=== PATIENT | male | born 1965 | race Caucasian/White ===

== ENCOUNTER 2017-06-29 10:20 | Inpatient (IN) | payer OTHER ==
[~2017-06-29] VITALS: Ht 182.9 cm; Wt 84.2 kg
[~2017-06-29 10:20] MED LIST: DULE200A PO; OXYC1SOL5 PO; PROT40TA PO
[2017-06-29] MEDS ORDERED: IOHEXOL 350 MG/ML 10 ML VIAL (for RAD DIAG) IVCONTRAST ONE (10:21)
[2017-06-29 10:22] VITALS: BP 136/81; PULSE 115; RESP 16; TEMP 98.4; O2SAT 97
[2017-06-29 10:49] VITALS: BP 146/76; PULSE 107; RESP 18; O2SAT 97
[2017-06-29] MEDS ORDERED: SODIUM CHLORIDE 0.9% FLUSH 10 ML FLUSH IV FLUSH PRN ×4 (11:00→16:00)
[2017-06-29] MEDS ORDERED: asthma inhaler (11:05)
[2017-06-29 11:23] LABS: BASOPHIL % 0.5 % (0.0-2.0); EOSINOPHIL # 0.1 TH/MM3 (0-0.4); EOSINOPHIL % 1.1 % (0.0-4.0); HEMATOCRIT 34.6 % (39.0-51.0); HEMOGLOBIN 11.7 GM/DL (13.0-17.0); LYMPHOCYTE # 0.8 TH/MM3 (1.0-4.8); MEAN CELL VOLUME 103.1 FL (80.0-100.0); MEAN CORPUSCULAR HEMOGLOBIN 34.7 PG (27.0-34.0); MEAN CORPUSCULAR HGB CONC 33.6 % (32.0-36.0); MEAN PLATELET VOLUME 8.3 FL (7.0-11.0); MONOCYTE # 0.5 TH/MM3 (0-0.9); NEUT % 78.4 % (16.0-70.0); PLATELET COUNT 80 TH/MM3 (150-450); RED BLOOD COUNT 3.36 MIL/MM3 (4.50-5.90); RED CELL DISTRIBUTION WIDTH 16.6 % (11.6-17.2); WHITE BLOOD COUNT 6.4 TH/MM3 (4.0-11.0)
[2017-06-29 11:34] LABS: INTERNATIONAL NORMALIZED RATIO 1.2 RATIO; PROTHROMBIN TIME - PATIENT 13.4 SEC (9.8-11.6)
[2017-06-29 11:40] LABS: ALBUMIN 3.5 GM/DL (3.4-5.0); ALT (GPT) 29 U/L (12-78); AST (GOT) 190 U/L (15-37); BLOOD UREA NITROGEN 10 MG/DL (7-18); CALCIUM 9.3 MG/DL (8.5-10.1); CHLORIDE 96 MEQ/L (98-107); CREATININE 1.07 MG/DL (0.60-1.30); GLOMERULAR FILTRATION RATE 73 ML/MIN (>89); GLUCOSE,RANDOM 108 MG/DL (74-106); LIPASE 149 U/L (73-393); SODIUM (NA) 131 MEQ/L (136-145)
[2017-06-29 11:42] LABS: ALKALINE PHOSPHATASE 143 U/L (45-117); TOTAL BILIRUBIN ADULT 7.6 MG/DL (0.2-1.0)
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
--- NOTE | 2017-06-29 13:20 | RADRPT ---
EXAM DATE/TIME: 06/29/2017 12:52 [facility] COMPARISON: CT ABDOMEN & PELVIS W CONTRAST, April 09, 2015, 13:19. INDICATIONS : Abdomen pain with blood in stool. IV CONTRAST: 92 cc Omnipaque 350 (iohexol) IV ORAL CONTRAST: No oral contrast ingested. RADIATION DOSE: 13.82 CTDIvol (mGy) MEDICAL HISTORY : Carcinoma, esophageal. Barretts syndrome SURGICAL HISTORY : Exp lab ENCOUNTER: Initial ACUITY: 1 week PAIN SCALE: 10/10 LOCATION: Abdomen TECHNIQUE: Volumetric scanning of the abdomen and pelvis was performed. Using automated exposure control and ad justment of the mA and/or kV according to patient size, radiation dose was kept as low as reasonably achievable to obtain optimal diagnostic quality images. DICOM format image data is available electro nically for review and comparison. FINDINGS: No pleural or pericardial effusions are identified. There is marked splenomegaly, up to 19.3 cm in AP dimension, increased from previous. Gallbladder, kidneys, adrenals, pancreas, urinary bladder, prost ate unremarkable. There is no evidence of bowel obstruction. The appendix is normal. There are there a CT at the esophageal hiatus, gastrohepatic ligament, and left upper quadrant in the perisplenic reg ion with a splenorenal shunt noted. A atherosclerotic calcifications of the aorta and iliac vessels. No aneurysm. The liver is diffusely heterogeneous. This is a change from the previous study. This is concerning for diffuse liver masses, versus marked inhomogeneous hepatic steatosis. CONCLUSION: 1. Hepatosplenomegaly and varices noted as above. 2. Atherosclerosis. 3. Abnormal diffuse heterogeneous appearance of the liver which may be related to either marked hepat ic steatosis in an inhomogeneous fashion versus steatosis and underlying diffuse liver masses. An MRI of the abdomen with and without contrast may be helpful for further evaluation of this finding. Navjot Chirinos MD on June 29, 2017 at 13:15 Board Certified Radiologist. This report was verified electronically.
[2017-06-29 13:46] VITALS: BP 143/74; PULSE 105; RESP 19; O2SAT 98
[2017-06-29] MEDS ORDERED: PANTOPRAZOLE SODIUM 40 MG VIAL IV PUSH ONE (14:15)
[2017-06-29] MEDS ORDERED: OCTREOTIDE INJ 100 MCG/ML VIAL IV PUSH ONE (14:15)
[2017-06-29 14:37] LABS: BILIRUBIN, URINE SMALL (NEG); BLOOD, URINE NEG (NEG); GLUCOSE,URINE NEG (NEG); HYALINE CAST, URINE 9 /lpf (RARE); KETONE, URINE TRACE mg/dL (NEG); NITRITE,URINE NEG (NEG); SQUAMOUS EPITHELIAL CELL URINE <1 /hpf (0-5); TRANSITIONAL EPI CELLS, URINE <1 /hpf; URINE COLOR YELLOW (YELLW/STRAW); URINE LEUKOCYTE ESTERASE NEG (NEG)
[2017-06-29] MEDS ORDERED: BISACODYL 10 MG SUPP RECTAL PRN (15:15)
[2017-06-29] MEDS ORDERED: MAGNESIUM HYDROXIDE SUSP 30 ML CUP PO PRN (15:15)
[2017-06-29] MEDS ORDERED: PROCHLORPERAZINE 25 MG SUPP RECTAL PRN (15:15)
[2017-06-29] MEDS ORDERED: ACETAMINOPHEN 325 MG TAB PO PRN (15:15)
[2017-06-29] MEDS ORDERED: SENNOSIDES 8.6 MG TAB PO PRN (15:15)
[2017-06-29] MEDS ORDERED: LACTULOSE SYRUP 20 GM/30 ML CUP PO PRN (15:15)
[2017-06-29] MEDS ORDERED: RESP: ALBUTEROL 2.5 MG/IPRATROPIUM 0.5 MG NEB (PRN) NEB (15:30)
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
[2017-06-29] MEDS ORDERED: MORPHINE SULFATE 4 MG/ML INJ IV PUSH PRN ×2 (16:00)
[2017-06-29] MEDS ORDERED: LORazepam 2 MG TAB PO PRN (16:00)
[2017-06-29] MEDS ORDERED: NALOXONE HCL 0.4 MG/ML AMP IV PUSH PRN (16:00)
[2017-06-29] MEDS ORDERED: NICOTINE 14 MG/24 HR PATCH T-DERMAL ONE (16:00)
[2017-06-29] MEDS ORDERED: LORazepam 1 MG TAB PO PRN (16:00)
[2017-06-29] MEDS ORDERED: FLUMAZENIL 0.5 MG/5 ML VIAL IV PUSH PRN (16:00)
[2017-06-29] MEDS ORDERED: LORazepam 2 MG/ML VIAL IV PUSH PRN ×2 (16:00)
[2017-06-29] MEDS ORDERED: cloNIDine HCL 0.1 MG TAB PO PRN ×2 (16:00)
[2017-06-29 18:00] VITALS: BP 129/76; PULSE 103; RESP 16; TEMP 96.3; O2SAT 95
[2017-06-29] MEDS: FOLIC ACID 1 MG TAB PO SCH (18:03)
[2017-06-29] MEDS: THIAMINE HCL 100 MG TAB PO SCH (18:03)
[2017-06-29] MEDS: MULTIVITAMINS/MINERALS THERAPEUTIC TAB PO SCH (18:03)
[2017-06-29 20:00] VITALS: PULSE 85
[2017-06-29 20:20] VITALS: BP 121/72; PULSE 89; RESP 18; TEMP 98.7; O2SAT 95
[2017-06-29] MEDS: PANTOPRAZOLE SODIUM 40 MG VIAL IV SCH (20:52)
[2017-06-29] MEDS: SODIUM CHLOR 0.9% 1000 ML INJ 1,000 ML IV SCH (20:52)
[2017-06-29] MEDS: DOCUSATE SODIUM 50 MG/SENNA 8.6 MG TAB PO SCH (20:53)
[2017-06-29] MEDS: guaiFENesin E.R. 600 MG TAB PO SCH (20:53)
[2017-06-29] MEDS: SODIUM CHLORIDE 0.9% FLUSH 10 ML FLUSH IV FLUSH SCH (20:57)
[2017-06-29] MEDS ORDERED: SODIUM CHLORIDE 0.9% FLUSH 10 ML FLUSH IV FLUSH SCH ×2 (21:00)
[2017-06-29 21:34] LABS: MAGNESIUM 1.8 MG/DL (1.5-2.5)
[2017-06-29 21:37] LABS: TROPONIN I LESS THAN 0.02 NG/ML (0.02-0.05)
[2017-06-30] VITALS (13 sets, daily range): BP systolic 101–128; BP diastolic 60–79; PULSE 63–99; RESP 17–20; TEMP 96.4–98.2; O2SAT 91–98
[2017-06-30 00:42] LABS: HDL CHOLESTEROL 13.1 MG/DL (40.0-60.0); TROPONIN I LESS THAN 0.02 NG/ML (0.02-0.05)
[2017-06-30 00:43] LABS: CHOLESTEROL 139 MG/DL (120-200); CHOLESTEROL/ HDL RATIO 10.61 RATIO; LDL CHOLESTEROL 101 MG/DL (0-99); PHOSPHORUS 3.3 MG/DL (2.5-4.9); TRIGLYCERIDES 124 MG/DL (42-150)
[2017-06-30] MEDS: ACETAMINOPHEN 325 MG TAB PO PRN (04:52)
[2017-06-30 08:05] LABS: AUTOMATED NEUTROPHIL # 3.8 TH/MM3 (1.8-7.7); BASOPHIL % 0.7 % (0.0-2.0); EOSINOPHIL # 0.1 TH/MM3 (0-0.4); EOSINOPHIL % 2.6 % (0.0-4.0); HEMATOCRIT 29.4 % (39.0-51.0); LYMPH % 20.9 % (9.0-44.0); LYMPHOCYTE # 1.2 TH/MM3 (1.0-4.8); MEAN CELL VOLUME 103.1 FL (80.0-100.0); MEAN CORPUSCULAR HGB CONC 33.9 % (32.0-36.0); MEAN PLATELET VOLUME 7.9 FL (7.0-11.0); MONO % 7.8 % (0.0-8.0); MONOCYTE # 0.4 TH/MM3 (0-0.9); PLATELET COUNT 84 TH/MM3 (150-450); RED BLOOD COUNT 2.85 MIL/MM3 (4.50-5.90); RED CELL DISTRIBUTION WIDTH 15.9 % (11.6-17.2); WHITE BLOOD COUNT 5.6 TH/MM3 (4.0-11.0)
[2017-06-30 08:10] LABS: INTERNATIONAL NORMALIZED RATIO 1.2 RATIO; PROTHROMBIN TIME - PATIENT 13.4 SEC (9.8-11.6)
[2017-06-30] MEDS: FOLIC ACID 1 MG TAB PO SCH (08:10)
[2017-06-30] MEDS: PANTOPRAZOLE SODIUM 40 MG VIAL IV SCH ×2 (08:10→20:58)
[2017-06-30] MEDS: DOCUSATE SODIUM 50 MG/SENNA 8.6 MG TAB PO SCH ×2 (08:10→20:59)
[2017-06-30] MEDS: guaiFENesin E.R. 600 MG TAB PO SCH ×2 (08:10→20:59)
[2017-06-30] MEDS: THIAMINE HCL 100 MG TAB PO SCH (08:10)
[2017-06-30] MEDS: MULTIVITAMINS/MINERALS THERAPEUTIC TAB PO SCH (08:10)
[2017-06-30] MEDS: SODIUM CHLOR 0.9% 1000 ML INJ 1,000 ML IV SCH ×2 (08:11→12:00)
[2017-06-30] MEDS: SODIUM CHLORIDE 0.9% FLUSH 10 ML FLUSH IV FLUSH SCH ×2 (08:11→20:58)
[2017-06-30] MEDS: NICOTINE 14 MG/24 HR PATCH T-DERMAL SCH (08:11)
[2017-06-30 08:53] LABS: ALBUMIN 3.2 GM/DL (3.4-5.0); ALKALINE PHOSPHATASE 118 U/L (45-117); ALT (GPT) 28 U/L (12-78); AMYLASE 47 U/L (25-115); AST (GOT) 133 U/L (15-37); BICARBONATE 26.1 MEQ/L (21.0-32.0); BLOOD UREA NITROGEN 10 MG/DL (7-18); CALCIUM 8.1 MG/DL (8.5-10.1); CHLORIDE 99 MEQ/L (98-107); CREATININE 0.77 MG/DL (0.60-1.30); FREE T4 1.08 NG/DL (0.76-1.46); GLOMERULAR FILTRATION RATE 107 ML/MIN (>89); GLUCOSE,RANDOM 79 MG/DL (74-106); LIPASE 130 U/L (73-393); MAGNESIUM 1.6 MG/DL (1.5-2.5); PHOSPHORUS 3.4 MG/DL (2.5-4.9); SODIUM (NA) 135 MEQ/L (136-145)
[2017-06-30] MEDS: REMOVE OLD PATCH T-DERMAL SCH (09:00)
[2017-06-30 09:46] LABS: POLYCHROMASIA 2.4 % (0.0-1.9)
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
[2017-06-30 11:05] LABS: HEMOGLOBIN A1C 4.2 % (4.3-6.0)
--- NOTE | 2017-06-30 11:59 | EKG ---
Date Performed: 06/29/2017 Time Performed: 10:58:56 PTAGE: 51 years EKG: SINUS TACHYCARDIA ABNORMAL RHYTHM ECG Compared to prior tracing no significant change PREVIOUS TRACING : 06/12/2017 11.31 DOCTOR: Armando Marinelli Interpretating Date/Time 06/30/2017 11:55:37
--- NOTE | 2017-06-30 11:59 | EKG ---
Date Performed: 06/29/2017 Time Performed: 21:39:51 PTAGE: 51 years EKG: Sinus rhythm NORMAL ECG Compared to prior tracing no significant change PREVIOUS TRACING : 06/29/2017 10.58 DOCTOR: Armando Marinelli Interpretating Date/Time 06/30/2017 11:55:47
[2017-06-30] MEDS ORDERED: PROPOFOL 200 MG/20 ML AMP IV ONE (12:00)
[2017-06-30] MEDS ORDERED: LIDOCAINE HCL 1% PF 5 ML AMPULE OTHER ONE (12:00)
--- NOTE | 2017-06-30 12:43 | GIPROC ---
[facility] [address] [facility]. [facility], [address] EGD PROCEDURE REPORT EXAM DATE: 06/30/2017 PATIENT NAME: Nikko Martin MR #: [id number] BIRTHDATE: 1965 ATTENDING: Vidya Lott MD ORDER #: [id number] DOUBLER OPERATOR: Amandeep Stanley and Yovana Sauer STATUS: inpatient INDICATIONS: The patient is a 51 yr old male here for an EGD due to anemia and Upper GI bleed Alcohol abuse PROCEDURE PERFORMED: EGD, diagnostic MEDICATIONS: None and Per Anesthesia. TOPICAL ANESTHETIC: none CONSENT: The patient understands the risks and benefits of the procedure and understands that these risks include, but are not limited to: sedation, allergic reaction, infection, perforation and/or bleeding. Alternative means of evaluation and treatment include, among others: physical exam, x-rays, and/or surgical intervention. The patient elects to proceed with this endoscopic procedure. medical equipment was checked for proper function. Hand hygiene and appropriate measures for infection prevention was taken. After the risks, benefits and alternatives of the procedure were thoroughly explained, Informed consent was verified, confirmed and timeout was successfully executed by the treatment team. The patient was anesthetized with topical anesthesia and the Pentax EG-2990i endoscope was introduced through the mouth and advanced to the second portion of the duodenum. Retroflexed views revealed no abnormalities The gastroscope was then slowly withdrawn and removed. Short Menendez esophagus, no biopsy was done patient had biopsy was done last year. Gastropathy and mild gastritis. Moderate duodenitis. No active bleeding and no sign of old bleeding. ADVERSE EVENTS: There were no complications. IMPRESSIONS: 1. 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 Gastropathy and mild gastritis 3. Moderate duodenitis 4. No active bleeding and no sign of old bleeding 5. Retroflexed views revealed no abnormalities RECOMMENDATIONS: 1. Await biopsy results. Biopsy results will not be ready for 7-10 days. If you don't hear from us in two weeks, call our office for biopsy results. 2. Anti-reflux regimen 3. Avoid NSAIDS 4. Continue PPI 5. No alcohol Watch for DT PATIENT CONDITION: stable DISPOSITION: Inpatient REPEAT EXAM: Return 2 years EGD Vidya Lott MD eSigned: Vidya Lott MD 06/30/2017 12:43 PM cc: PATIENT NAME: Nikko Martin MR#: [id number]
--- NOTE | 2017-06-30 12:43 | GIPROC ---
[facility] [address] [facility]. [facility], [address] EGD PROCEDURE REPORT EXAM DATE: 06/30/2017 PATIENT NAME: Nikko Martin MR #: [id number] BIRTHDATE: 1965 ATTENDING: Vidya Lott MD ORDER #: [id number] PSYCHOLOGY TEACHER: Amandeep Stanley and Yovana Sauer STATUS: inpatient INDICATIONS: The patient is a 51 yr old male here for an EGD due to anemia and Upper GI bleed Alcohol abuse PROCEDURE PERFORMED: EGD, diagnostic MEDICATIONS: None and Per Anesthesia. TOPICAL ANESTHETIC: none CONSENT: The patient understands the risks and benefits of the procedure and understands that these risks include, but are not limited to: sedation, allergic reaction, infection, perforation and/or bleeding. Alternative means of evaluation and treatment include, among others: physical exam, x-rays, and/or surgical intervention. The patient elects to proceed with this endoscopic procedure. medical equipment was checked for proper function. Hand hygiene and appropriate measures for infection prevention was taken. After the risks, benefits and alternatives of the procedure were thoroughly explained, Informed consent was verified, confirmed and timeout was successfully executed by the treatment team. The patient was anesthetized with topical anesthesia and the Pentax EG-[id number] endoscope was introduced through the mouth and advanced to the second portion of the duodenum. Retroflexed views revealed no abnormalities The gastroscope was then slowly withdrawn and removed. Short Menendez esophagus, no biopsy was done patient had biopsy was done last year. Gastropathy and mild gastritis. Moderate duodenitis. No active bleeding and no sign of old bleeding. ADVERSE EVENTS: There were no complications. IMPRESSIONS: 1. 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 Gastropathy and mild gastritis 3. Moderate duodenitis 4. No active bleeding and no sign of old bleeding 5. Retroflexed views revealed no abnormalities RECOMMENDATIONS: 1. Await biopsy results. Biopsy results will not be ready for 7-10 days. If you don't hear from us in two weeks, call our office for biopsy results. 2. Anti-reflux regimen 3. Avoid NSAIDS 4. Continue PPI 5. No alcohol Watch for DT PATIENT CONDITION: stable DISPOSITION: Inpatient REPEAT EXAM: Return 2 years EGD Vidya Lott MD eSigned: Vidya Lott MD 06/30/2017 12:43 PM cc: PATIENT NAME: Nikko Martin MR#: [id number]
--- NOTE | 2017-06-30 12:43 | GIPROC ---
[facility] [address] [facility]. [facility], [address] EGD PROCEDURE REPORT EXAM DATE: 06/30/2017 PATIENT NAME: Nikko Martin MR #: [id number] BIRTHDATE: 1965 ATTENDING: Vidya Lott MD ORDER #: [id number] DEPOT AGENT: Amandeep Stanley and Yovana Sauer STATUS: inpatient INDICATIONS: The patient is a 51 yr old male here for an EGD due to anemia and Upper GI bleed Alcohol abuse PROCEDURE PERFORMED: EGD, diagnostic MEDICATIONS: None and Per Anesthesia. TOPICAL ANESTHETIC: none CONSENT: The patient understands the risks and benefits of the procedure and understands that these risks include, but are not limited to: sedation, allergic reaction, infection, perforation and/or bleeding. Alternative means of evaluation and treatment include, among others: physical exam, x-rays, and/or surgical intervention. The patient elects to proceed with this endoscopic procedure. medical equipment was checked for proper function. Hand hygiene and appropriate measures for infection prevention was taken. After the risks, benefits and alternatives of the procedure were thoroughly explained, Informed consent was verified, confirmed and timeout was successfully executed by the treatment team. The patient was anesthetized with topical anesthesia and the Pentax EG-[id number] endoscope was introduced through the mouth and advanced to the second portion of the duodenum. Retroflexed views revealed no abnormalities The gastroscope was then slowly withdrawn and removed. Short Menendez esophagus, no biopsy was done patient had biopsy was done last year. Gastropathy and mild gastritis. Moderate duodenitis. No active bleeding and no sign of old bleeding. ADVERSE EVENTS: There were no complications. IMPRESSIONS: 1. 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 Gastropathy and mild gastritis 3. Moderate duodenitis 4. No active bleeding and no sign of old bleeding 5. Retroflexed views revealed no abnormalities RECOMMENDATIONS: 1. Await biopsy results. Biopsy results will not be ready for 7-10 days. If you don't hear from us in two weeks, call our office for biopsy results. 2. Anti-reflux regimen 3. Avoid NSAIDS 4. Continue PPI 5. No alcohol Watch for DT PATIENT CONDITION: stable DISPOSITION: Inpatient REPEAT EXAM: Return 2 years EGD Vidya Lott MD eSigned: Vidya Lott MD 06/30/2017 12:43 PM cc: PATIENT NAME: Nikko Martin MR#: [id number]
[2017-06-30] MEDS ORDERED: DO NOT ADM ANY ANTICOAGULANT DRUGS PRN (12:56)
[2017-06-30] MEDS: LORazepam 2 MG/ML VIAL IV PUSH PRN (13:52)
[2017-06-30 15:38] LABS: IRON (FE) 47 MCG/DL (65-175); TOTAL IRON BINDING CAPACITY 335 MCG/DL (250-450)
[2017-06-30 15:41] LABS: FERRITIN 94 NG/ML (26-388)
--- NOTE | 2017-06-30 15:42 | HHI.PR ---
Subjective Remarks Follow up EtOH withdrawal. Patient is confused. He has been hallucinating per nursing. Denies pain. Objective Vitals Vital Signs Date Time Temp Pulse Resp B/P (MAP) Pulse Ox O2 Delivery O2 Flow Rate FiO2 06/30/17 13:30 96.5 99 18 126/72 (90) 96 06/30/17 13:07 88 16 129/70 (89) 96 06/30/17 12:58 97.9 85 18 132/71 (91) 100 06/30/17 09:36 96 06/30/17 08:00 97.7 85 20 127/73 (91) 98 06/30/17 04:54 96 06/30/17 04:20 96.7 90 17 128/79 (95) 97 06/30/17 04:00 88 06/30/17 00:20 96.4 84 18 127/74 (91) 97 06/30/17 00:00 84 06/29/17 20:20 98.7 89 18 121/72 (88) 95 06/29/17 20:00 85 06/29/17 18:00 96.3 103 16 129/76 (93) 95 06/29/17 15:48 I/O 06/29/17 06/29/17 06/29/17 06/30/17 06/30/17 06/30/17 07:00 15:00 23:00 07:00 15:00 23:00 Intake Total 560 ml 720 ml 100 ml Output Total 500 ml Balance 560 ml 220 ml 100 ml Intake Oral 560 ml 720 ml Other 100 ml Output Urine Total 500 ml # Voids 1 2 1 # Bowel Movements 0 1 1 Result Diagram: 06/30/17 0744 06/30/17 0744 Imaging Last Impressions Abdomen/Pelvis CT 06/29/17 0000 Signed Impressions: Service Date/Time: Thursday, June 29, 2017 12:52 - CONCLUSION: 1. Hepatosplenomegaly and varices noted as above. 2. Atherosclerosis. 3. Abnormal diffuse heterogeneous appearance of the liver which may be related to either marked hepatic steatosis in an inhomogeneous fashion versus steatosis and underlying diffuse liver masses. An MRI of the abdomen with and without contrast may be helpful for further evaluation of this finding. Navjot Chirinos MD Objective Remarks General: No acute distress. Tremulous. Heart: Regular rate and rhythm. No murmur. Lungs: Clear to auscultation bilaterally. No wheezes, rales, or rhonchi. Breathing is nonlabored. Abdomen: Soft, nontender, nondistended. Extremities: No lower extremity edema. Psych: Alert, confused. Reexamined following fall: Patient remains confused. Vital signs are stable. No tenderness over the cervical spine. 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 Abdominal pain, possible GI bleed: Appreciate gastroenterology recommendations. Status post EGD. Continue IV fluids, Protonix. 2. Alcohol withdrawal: WA protocol. Librium scheduled. Continue multivitamin, folic acid, thiamine. Transfer to [facility] [place] [place] as symptoms are worsening. 3. Fall: The patient tried to get out of bed and fell. He hit his head on the door. He initially stated that he had pain in his head and neck. On exam he had no tenderness of the cervical spine and then denied pain in his neck. No other pain reported. 4. Hepatic encephalopathy: Continue lactulose. Ammonia level is elevated. 5. DVT prophylaxis: DRU [place]. Ozzie Robbins MD Jun 30, 2017 15:42
[2017-06-30] MEDS ORDERED: DEXMEDETOMIDINE 200 MCG in NS 48 ML IV PRN (16:00)
[2017-06-30] MEDS: chlordiazePOXIDE 25 MG CAP PO SCH ×2 (16:18→21:17)
[2017-06-30] MEDS: DEXMEDETOMIDINE INJ 1,000 MCG in SODIUM CHLOR 0.9% 250 ML INJ 240 ML IV PRN (16:37)
[2017-06-30] MEDS: RIFAXIMIN 550 MG TAB PO SCH ×2 (16:38→20:59)
[2017-06-30] MEDS ORDERED: GLUCAGON 1 MG/ML VIAL OTHER PRN (17:15)
[2017-06-30] MEDS ORDERED: DEXTROSE 50% IN WATER 50 ML VIAL(D50) IV PUSH PRN (17:15)
[2017-06-30] MEDS: DEXT 5%-NACL 0.9% 1000 ML INJ 1,000 ML IV SCH (17:15)
[2017-06-30] MEDS: INSULIN NovoLIN REGULAR SUPPLEMENTAL SCALE SQ SCH ×2 (18:00→21:16)
--- NOTE | 2017-06-30 18:04 | MB ---
cc: RADHA TREVIZO M.D. DATE OF CONSULTATION: 06/30/2017 REASON FOR CONSULTATION: DATE OF : 1965. HISTORY OF PRESENT ILLNESS: The patient is a 51-year-old male with past medical history of Menendez's esophagus, gastric ulcers, esophageal varices and tobacco abuse. He presented to [facility] ED yesterday for evaluation of abdominal pain. In addition the patient reported melena and some hematemesis. He denied any associated symptoms of nausea, vomiting, shortness of breath, chest pain or any constitutional symptoms. He had a CT of the abdomen and pelvis on arrival which showed hepatosplenomegaly, varices and possible hepatic steatosis. The patient was initially admitted under hospitalist service and evaluated by GI service for possible GI bleed. The patient underwent upper endoscopy today which showed gastropathy and mild gastritis, moderate duodenitis with no signs of active bleeding. He was transferred to [facility] [place] as the patient is likely going into s. He was placed on Precedex drip for sedation. Critical Care Medicine was consulted for critical care management. His laboratory data today showed elevated ammonia level at 67. The patient was placed on CIWA protocol. He denies any chest pain, shortness of breath. PAST MEDICAL HISTORY: Significant for: 1. Asthma. 2. Depression. 3. Questionable esophageal cancer. 4. Menendez's esophagus 5. History of gastric ulcers and varices. PAST SURGICAL HISTORY: 1. Previous ex-lap. 2. Previous left eye surgery. 3. Sinus surgery. 4. EGD today. CURRENT MEDICATIONS: 5. Folic acid. 6. Haldol p.r.n. 7. Protonix 8. Rifaximine. 9. Lactulose. 10. Thiamine. ALLERGIES NO KNOWN DRUG ALLERGIES. SOCIAL HISTORY The patient drinks two cocktails per day and smokes half pack of cigarettes per day. FAMILY HISTORY Two sisters had breast cancer. Brother had throat cancer. REVIEW OF SYSTEMS As per HPI. The rest of the review of systems was omitted. PHYSICAL EXAMINATION: The patient is a 51 year-old male, lying in bed, in no acute respiratory distress, agitated. VITAL SIGNS: Temperature afebrile, 97.9, pulse 99, respiratory rate 18, blood pressure 126/72, saturation 96%. HEENT: Atraumatic, normocephalic. Pupils equal, round and reactive to light and accommodation. Extraocular muscles intact. Conjunctivae pink. Nonicteric sclerae. Oral mucosa within normal. Neck: Supple. No JVD, adenopathy, thyromegaly. Trachea midline. Cardiovascular: Regular rate and rhythm. Normal S1-S2. No murmurs, rubs or gallops noted. Pulmonary exam: No rales or wheezing. Abdomen: Soft, nontender, no distension. Positive bowel sounds. Extremities: No cyanosis, clubbing and edema. Neuro: No focal sensory deficit, agitated. LABORATORY DATA WBC 5.6, hemoglobin 10, hematocrit 29, platelet count 84, sodium 135, potassium 3.5, chloride 99, CO2 26, BUN 10, creatinine 0.77, glucose of 79. AST 133, total bilirubin 6, ALT 28, alk phos 118, ammonia 67, TSH 6.7, INR 1.2, PT 13.4. CT of the abdomen and pelvis showed hepatosplenomegaly, varices, possible hepatic steatosis. IMPRESSION: 1. Altered mental status. 2. ETOH abuse. 3. Anemia, status post EGD. 4. Thrombocytopenia secondary to liver disease. 5. Elevated AST. 6. Elevated ammonia level. 7. History of GERD and Menendez's esophagus. RECOMMENDATIONS: Monitor neuro status closely. The patient was placed on CIWA protocol. Continue with thiamine, multivitamins and folic acid. Also continue with rifaximine and lactulose. Monitor ammonia level. The patient is scheduled for CT scan of the brain without contrast. Oxygen p.r.n. to maintain sats above 92%. Bronchodilators on a p.r.n. basis and aspiration precautions. Monitor heart rate and blood pressure, maintain MAP greater than 65 mmHg. IV fluids. Will place on D5 NS at 84 mL an hour. Monitor renal function I&O and electrolyte replacement per protocol. Keep n.p.o. for now and continue with Protonix 40 mg IV b.i.d. Monitor CBC and for signs of bleeding. The patient underwent upper endoscopy today which showed short Menendez esophagus gastropathy, mild gastritis and duodenitis without any signs of bleeding. Monitor for signs of infection which include fever and WBC. Blood cultures from earlier today showed no growth to date. Sliding scale insulin, Accu-Chek for glycemic control. GI prophylaxis with Protonix 40 mg IV b.i.d. and DVT prophylaxis with SCDs. Will hold off on chemical anticoagulation for anemia and thrombocytopenia. Further recommendations will be based on hospital course. MD NICOLE Zhong/MEGGAN /5:14 PM /5:28 PM
[2017-06-30] MEDS: LACTULOSE SYRUP 20 GM/30 ML CUP PO SCH (20:58)
[2017-07-01] VITALS (13 sets, daily range): BP systolic 100–113; BP diastolic 58–73; PULSE 55–68; RESP 14–23; TEMP 97.6–98.6; O2SAT 93–98
[2017-07-01] MEDS: INSULIN NovoLIN REGULAR SUPPLEMENTAL SCALE SQ SCH ×6 (02:00→21:16)
--- NOTE | 2017-07-01 02:44 | RADRPT ---
EXAM DATE/TIME: 07/01/2017 02:24 [facility] COMPARISON: No previous studies available for comparison. INDICATIONS : Fall, head pain RADIATION DOSE: 37.30 CTDIvol (mGy) MEDICAL HISTORY : Carcinoma, esophageal. asthma SURGICAL HISTORY : None. ENCOUNTER: Initial ACUITY: 1 day PAIN SCALE: 2/10 LOCATION: cranial TECHNIQUE: Multiple contiguous axial images were obtained of the head. Using automated exposure control and adj ustment of the mA and/or kV according to patient size, radiation dose was kept as low as reasonably a chievable to obtain optimal diagnostic quality images. DICOM format image data is available electro nically for review and comparison. FINDINGS: CEREBRUM: The ventricles are normal for age. No evidence of midline shift, mass lesion, hemorrhage or acute in farction. No extra-axial fluid collections are seen. POSTERIOR FOSSA: The cerebellum and brainstem are intact. The 4th ventricle is midline. The cerebellopontine angle i s unremarkable. EXTRACRANIAL: The visualized portion of the orbits is intact. SKULL: The calvaria is intact. No evidence of skull fracture. CONCLUSION: 1. No acute intracranial abnormalities. Previous fixation left maxillary sinus. Albert Walden MD on July 01, 2017 at 2:41 Board Certified Radiologist. This report was verified electronically.
--- NOTE | 2017-07-01 02:50 | RADRPT ---
EXAM DATE/TIME: 07/01/2017 02:24 [facility] COMPARISON: No previous studies available for comparison. INDICATIONS : Fall, neck pain RADIATION DOSE: 21.28 CTDIvol (mGy) MEDICAL HISTORY : Carcinoma, esophageal. asthma SURGICAL HISTORY : None. ENCOUNTER: Initial ACUITY: 1 day PAIN SCALE: 3/10 LOCATION: neck TECHNIQUE: Volumetric scanning of the cervical spine was performed. Multiplanar reconstructions in the sagittal, coronal and oblique axial planes were performed. Using automated exposure control and adjustment o f the mA and/or kV according to patient size, radiation dose was kept as low as reasonably achievable to obtain optimal diagnostic quality images. DICOM format image data is available electronically f or review and comparison. FINDINGS: VERTEBRAE: Normal vertebral body height. ALIGNMENT: No evidence of subluxation. C2-C3: The bony spinal canal is normal in size. No evidence of disc bulge or herniation. The neural forami na are bilaterally patent. C3-C4: The bony spinal canal is normal in size. No evidence of disc bulge or herniation. The neural forami na are bilaterally patent. C4-C5: The bony spinal canal is normal in size. No evidence of disc bulge or herniation. The neural forami na are bilaterally patent. C5-C6: The bony spinal canal is normal in size. No evidence of disc bulge or herniation. The neural forami na are bilaterally patent. C6-C7: The bony spinal canal is normal in size. No evidence of disc bulge or herniation. The neural forami na are bilaterally patent. C7-T1: The bony spinal canal is normal in size. No evidence of disc bulge or herniation. The neural forami na are bilaterally patent. CONCLUSION: Normal examination for a patient of this age. Albert Walden MD on July 01, 2017 at 2:44 Board Certified Radiologist. This report was verified electronically.
[2017-07-01] MEDS: chlordiazePOXIDE 25 MG CAP PO SCH ×4 (04:00→20:00)
[2017-07-01] MEDS: DEXT 5%-NACL 0.9% 1000 ML INJ 1,000 ML IV SCH ×3 (05:30→20:00)
[2017-07-01 05:52] LABS: AUTOMATED NEUTROPHIL # 2.6 TH/MM3 (1.8-7.7); BASOPHIL % 0.7 % (0.0-2.0); EOSINOPHIL # 0.1 TH/MM3 (0-0.4); EOSINOPHIL % 3.6 % (0.0-4.0); HEMATOCRIT 26.8 % (39.0-51.0); HEMOGLOBIN 8.9 GM/DL (13.0-17.0); LYMPH % 20.3 % (9.0-44.0); LYMPHOCYTE # 0.8 TH/MM3 (1.0-4.8); MEAN CELL VOLUME 105.2 FL (80.0-100.0); MEAN CORPUSCULAR HGB CONC 33.3 % (32.0-36.0); MEAN PLATELET VOLUME 7.7 FL (7.0-11.0); MONO % 8.1 % (0.0-8.0); MONOCYTE # 0.3 TH/MM3 (0-0.9); NEUT % 67.3 % (16.0-70.0); PLATELET COUNT 68 TH/MM3 (150-450); RED BLOOD COUNT 2.55 MIL/MM3 (4.50-5.90); RED CELL DISTRIBUTION WIDTH 16.3 % (11.6-17.2); WHITE BLOOD COUNT 3.9 TH/MM3 (4.0-11.0)
[2017-07-01 05:54] LABS: INTERNATIONAL NORMALIZED RATIO 1.2 RATIO; PROTHROMBIN TIME - PATIENT 13.6 SEC (9.8-11.6)
[2017-07-01 06:26] LABS: ALBUMIN 2.6 GM/DL (3.4-5.0); ALKALINE PHOSPHATASE 92 U/L (45-117); ALT (GPT) 24 U/L (12-78); AST (GOT) 95 U/L (15-37); BICARBONATE 23.5 MEQ/L (21.0-32.0); BLOOD UREA NITROGEN 13 MG/DL (7-18); CALCIUM 7.6 MG/DL (8.5-10.1); CHLORIDE 104 MEQ/L (98-107); CREATININE 0.63 MG/DL (0.60-1.30); GLOMERULAR FILTRATION RATE 135 ML/MIN (>89); GLUCOSE,RANDOM 132 MG/DL (74-106); SODIUM (NA) 137 MEQ/L (136-145); TOTAL BILIRUBIN ADULT 4.2 MG/DL (0.2-1.0); TOTAL PROTEIN 7.1 GM/DL (6.4-8.2)
[2017-07-01] MEDS ORDERED: RESP: ALBUTEROL 2.5 MG/IPRATROPIUM 0.5 MG NEB (PRN) NEB (07:15)
[2017-07-01] MEDS ORDERED: POTASSIUM CHLORIDE 20 MEQ CONTROLLED RELEASE TAB PO ONE (07:15)
--- NOTE | 2017-07-01 07:22 | HHI.CCPN ---
Subjective Remarks/Hospital Course The patient is a 51-year-old male with past medical history of Menendez's esophagus, gastric ulcers, esophageal varices and tobacco abuse. He presented to [facility] ED yesterday for evaluation of abdominal pain. In addition the patient reported melena and some hematemesis. He denied any associated symptoms of nausea, vomiting, shortness of breath, chest pain or any constitutional symptoms. He had a CT of the abdomen and pelvis on arrival which showed hepatosplenomegaly, varices and possible hepatic steatosis. The patient was initially admitted under hospitalist service and evaluated by GI service for possible GI bleed. The patient underwent upper endoscopy today which showed gastropathy and mild gastritis, moderate duodenitis with no signs of active bleeding. He was transferred to [facility] as the patient is likely going into DTs. He was placed on Precedex drip for sedation. Critical Care Medicine was consulted for critical care management. His laboratory data today showed elevated ammonia level at 67. The patient was placed on CIWA protocol. He denies any chest pain, shortness of breath. Subjective 07/01: Afebrile. CT brain, CT C-spine negative early this AM. Currently on dexmedetomidine at 0.8 mics grams per kilogram per hour for sedation. No lorazepam given overnight. Currently in chlordiazepoxide 50 mg every 6 hours scheduled question however that was held as well due to the sedative effects of the dexmedetomidine. Objective Vital Signs Date Time Temp Pulse Resp B/P (MAP) Pulse Ox O2 Delivery O2 Flow Rate FiO2 07/01/17 06:00 55 07/01/17 04:00 97.8 14 113/73 (86) 98 06/30/17 20:45 Nasal Cannula 2.00 06/29/17 15:23 21 Intake and Output 07/01/17 07/01/17 07/02/17 08:00 16:00 00:00 Intake Total 2570 ml Output Total 350 ml Balance 2220 ml Result Diagram: 07/01/17 0520 07/01/17 0520 Other Results Microbiology Date/Time Source Procedure Growth Status 06/30/17 07:44 Blood Peripheral Aerobic Blood Culture Pending Received 06/30/17 07:44 Blood Peripheral Anaerobic Blood Culture Pending Received Imaging Last Impressions Head CT 06/30/17 0000 Signed Impressions: Service Date/Time: Saturday, July 01, 2017 02:24 - CONCLUSION: 1. No acute intracranial abnormalities. Previous fixation left maxillary sinus. Albert Walden MD Cervical Spine CT 06/30/17 0000 Signed Impressions: Service Date/Time: Saturday, July 01, 2017 02:24 - CONCLUSION: Normal examination for a patient of this age. Albert Walden MD Abdomen/Pelvis CT 06/29/17 0000 Signed Impressions: Service Date/Time: Thursday, June 29, 2017 12:52 - CONCLUSION: 1. Hepatosplenomegaly and varices noted as above. 2. Atherosclerosis. 3. Abnormal diffuse heterogeneous appearance of the liver which may be related to either marked hepatic steatosis in an inhomogeneous fashion versus steatosis and underlying diffuse liver masses. An MRI of the abdomen with and without contrast may be helpful for further evaluation of this finding. Navjot Chirinos MD Objective Remarks GENERAL: 51 oh male, resting in bed in no acute distress nasal cannula SKIN: Warm and dry. Tattoos on left neck and right upper extremity HEAD: Atraumatic. Normocephalic. EYES: Pupils equal and round about 2 mm bilaterally and reactive. No scleral icterus. No injection or drainage. ENT: No nasal bleeding or discharge. Mucous membranes pink and moist. Oropharynx without erythema or exudates NECK: Trachea midline. No JVD. CARDIOVASCULAR: Bradycardic, RR. S1, S2. No S4. Without murmur RESPIRATORY: No accessory muscle use. Clear to auscultation. Breath sounds equal bilaterally. GASTROINTESTINAL: Abdomen somewhat protuberant. Hypoactive bowel sounds are appreciated. Nontender. Spleen is palpated below the costal margin. MUSCULOSKELETAL: Extremities with nonpitting lower extremity edema. Pain palpation right ankle lateral aspect. Decreased range of motion NEUROLOGICAL: Awake and alert to person and place not time. No obvious cranial nerve deficits. Motor grossly within normal limits. Five out of 5 muscle strength in the arms and legs. Procedures 06/30/17 EGD Urinary Catheter: No Assessment to: Continue Vascular Central Line Catheter: No Assessment to: Continue A/P Assessment and Plan Neuro/Psych: EtOH withdrawal History of depression/anxiety Currently on CIWA protocol Chlordiazepoxide 50 mg by mouth every 6 hours scheduled Dexmedetomidine at 0.8 mics grams per kilogram per hour to maintain RASS of 0 Thiamine 100 mg daily, folate 1 mg daily multivitamin 1 tablet daily Seizure precautions CT brain 07/01 revealed no acute intracranial findings. Patient with history of right zygomatic/maxillary sinus are. 2016 CT C-spine 07/01 negative findings Tramadol 50-100 mg every 4 hours as needed pain If unable to take by mouth, on morphine sulfate 2 to 4 mg IV every 3 hours when necessary pain CV: Atherosclerotic vascular disease Dyslipidemia Asymptomatic bradycardia Clonidine as needed for hypertension/EtOH withdrawal Currently on D5 normal saline at 84 cc an hour Currently not requiring any additional hyperintense and/or vasopressors Bradycardia likely secondary to dexmedetomidine Resp: Ongoing tobaccoism History of asthma/reactive airway disease Nasal cannula to maintain saturations greater than equal to 92% Incentive spirometry while awake On albuterol/ipratropium aerosols every 6 hours with albuterol aerosols every 2 hours when necessary dyspnea Currently on nicotine patch at 14 mg daily. Nicotine cessation education provided GI: History esophageal cancer? Menendez's esophagus Gastroesophageal reflux disease Gout Gastritis/duodenitis Splenomegaly Constipation/chronic Hyperammonia EGD 06/[address] Sorto revealed mild gastritis, duodenitis. Likely esophagitis /Menendez's not biopsied. Currently on clear liquid diet Pantoprazole 40 mg IV daily for GI prophylaxis Lactulose 30 cc twice a day and Xifaxan 500 mg by mouth twice a day for hyperammonia. Recheck ammonia level in a.m. CT abdomen/pelvis revealed splenomegaly 19.3 cm. varices at the esophageal hiatus, gastric ligament and left upper quadrant. Renal splenic shunt appreciated. Liver workup including AMA, ASMA, hepatitis studies all pending : Patient currently with condom catheter. Endo: Elevated TSH 6.7. Normal T History of gout Sliding-scale insulin Novulin R every 4 hrs for maintain euglycemia Renal: Creatinine currently within normal limits Monitor urine output Accurate I's and O's Heme: Macrocytic anemia Thrombocytopenia chronic likely secondary to underlying EtOH /cirrhotic liver disease- Leukocytosis Monitor CBC/coags in AM. No signs of hemolysis/consumption thrombocytopenia. This appears to be a chronic condition ID: Pertinent cultures 06/30 - blood cultures 2 - pending MSK: Right ankle pain Check x-ray right ankle rule out fracture PT evaluate and treat FEN: Hypokalemia Will give 80 mEq potassium clear 1 now. Recheck potassium this afternoon Follow up on magnesium this afternoon Access - Utilize peripheral IV. Central line if indicated Prophylaxis - GI - pantoprazole - DVT - SCD/holding pharmacological prophylaxis in light of thrombocytopenia Level II follow-up [place] Devries MD Jul 01, 2017 07:22
[2017-07-01] MEDS: RESP: ALBUTEROL 2.5 MG/IPRATROPIUM 0.5 MG NEB (SCH) NEB ×2 (08:37→21:30)
[2017-07-01] MEDS: RIFAXIMIN 550 MG TAB PO SCH ×2 (09:00→20:00)
[2017-07-01] MEDS: DOCUSATE SODIUM 50 MG/SENNA 8.6 MG TAB PO SCH ×2 (09:00→20:00)
[2017-07-01] MEDS: MULTIVITAMINS/MINERALS THERAPEUTIC TAB PO SCH (09:00)
[2017-07-01] MEDS: REMOVE OLD PATCH T-DERMAL SCH (09:00)
[2017-07-01] MEDS: LACTULOSE SYRUP 20 GM/30 ML CUP PO SCH ×2 (09:01→19:59)
[2017-07-01] MEDS: PANTOPRAZOLE SODIUM 40 MG VIAL IV SCH ×2 (09:01→20:00)
[2017-07-01] MEDS: guaiFENesin E.R. 600 MG TAB PO SCH ×2 (09:01→20:00)
[2017-07-01] MEDS: FOLIC ACID 1 MG TAB PO SCH (09:01)
[2017-07-01] MEDS: THIAMINE INJ 100 MG in SODIUM CHLORIDE 0.9% INJ 100 ML IV SCH (09:01)
[2017-07-01] MEDS: SODIUM CHLORIDE 0.9% FLUSH 10 ML FLUSH IV FLUSH SCH ×2 (09:03→20:00)
[2017-07-01] MEDS: DEXMEDETOMIDINE INJ 1,000 MCG in SODIUM CHLOR 0.9% 250 ML INJ 240 ML IV PRN (09:03)
[2017-07-01] MEDS: NICOTINE 14 MG/24 HR PATCH T-DERMAL SCH (09:04)
[2017-07-01] MEDS ORDERED: SODIUM PHOSPHATE INJ 30 MMOL in SODIUM CHLOR 0.9% 250 ML INJ 240 ML IV PRN (09:30)
[2017-07-01] MEDS ORDERED: POTASSIUM PHOSPHATE INJ 30 MMOL in SODIUM CHLOR 0.9% 250 ML INJ 250 ML IV PRN (09:30)
[2017-07-01] MEDS ORDERED: POTASSIUM PHOSPHATE MONOBASIC 500 MG TAB PO/TUBE PRN (09:30)
[2017-07-01] MEDS ORDERED: POTASSIUM CHLOR 40 MEQ PREMIX 100 ML IV PRN ×2 (09:30)
[2017-07-01] MEDS ORDERED: MAGNESIUM SULFATE INJ 4 GM in SODIUM CHLORIDE 0.9% INJ 92 ML IV PRN (09:30)
[2017-07-01] MEDS ORDERED: POTASSIUM PHOSPHATE MONOBASIC 500 MG TAB PO PRN (09:30)
[2017-07-01] MEDS ORDERED: MAGNESIUM OXIDE 400 MG TAB PO PRN (09:30)
[2017-07-01] MEDS ORDERED: MAGNESIUM SULFATE INJ 2 GM in SODIUM CHLORIDE 0.9% INJ 96 ML IV PRN (09:30)
[2017-07-01 11:38] LABS: HEPATITIS A AB IGM NEGATIVE (NEGATIVE); HEPATITIS B SURFACE ANTIGEN NEGATIVE (NEGATIVE); HEPATITIS C AB IgG NEGATIVE (NEGATIVE)
[2017-07-01 11:54] LABS: ANA SCREEN NEG (NEG)
--- NOTE | 2017-07-01 11:54 | RADRPT ---
EXAM DATE/TIME: 07/01/2017 10:22 [facility] COMPARISON: No previous studies available for comparison. INDICATIONS : Lump on his right ankle x 8 mos to a year. MEDICAL HISTORY : Carcinoma, esophageal. Menendez's esophagus SURGICAL HISTORY : Exploratory lap ENCOUNTER: Initial ACUITY: 2 days PAIN SCORE: 8/10 LOCATION: Right ankle FINDINGS: Soft tissue mass is seen lateral to the fibula noted to be a fluid collection as far back as 09/10/20 12. Bone beneath this is intact. CONCLUSION: Soft tissue mass noted to be fluid filled on ultrasound 09/10/2012. Colten Nelson MD FACR on July 01, 2017 at 11:20 Board Certified Radiologist. This report was verified electronically.
[2017-07-01 12:14] LABS: MAGNESIUM 1.9 MG/DL (1.5-2.5)
[2017-07-01 14:52] LABS: SMOOTH MUSCLE TOTAL AUTOABS Negative (Negative)
--- NOTE | 2017-07-01 15:30 | HHI.GIFU ---
Subjective Remarks Resting in bed. Lethargic. Oriented to person and place. Calm. No active bleeding. Nausea without vomiting. (Yoli Koenig) Objective Vitals I&O Vital Signs Date Time Temp Pulse Resp B/P (MAP) Pulse Ox O2 Delivery O2 Flow Rate FiO2 07/01/17 14:00 60 07/01/17 12:00 57 07/01/17 12:00 97.9 57 20 105/68 (80) 93 07/01/17 10:00 68 07/01/17 08:00 59 07/01/17 08:00 98.6 59 19 105/68 (80) 93 07/01/17 06:00 55 07/01/17 04:00 97.8 56 14 113/73 (86) 98 07/01/17 04:00 56 07/01/17 02:00 58 07/01/17 00:00 59 07/01/17 00:00 97.6 59 14 107/67 (80) 97 06/30/17 22:00 63 06/30/17 21:00 98.1 66 18 101/60 (74) 91 06/30/17 21:00 66 06/30/17 20:45 98 Nasal Cannula 2.00 06/30/17 19:00 68 06/30/17 18:00 98.2 I/O 06/30/17 06/30/17 06/30/17 07/01/17 07/01/17 07/01/17 07:00 15:00 23:00 07:00 15:00 23:00 Intake Total 720 ml 100 ml 120 ml 2570 ml 189 ml Output Total 500 ml 350 ml Balance 220 ml 100 ml 120 ml 2220 ml 189 ml Intake Oral 720 ml 120 ml IV Total 120 ml 2450 ml 189 ml Other 100 ml Output Urine Total 500 ml 350 ml # Voids 2 1 0 # Bowel Movements 1 1 0 Laboratory Laboratory Tests Test 06/30/17 17:00 07/01/17 05:20 07/01/17 11:19 Nasal Screen MRSA (PCR) MRSA NOT DETECTED White Blood Count 3.9 Red Blood Count 2.55 Hemoglobin 8.9 Hematocrit 26.8 Mean Corpuscular Volume 105.2 Mean Corpuscular Hemoglobin 35.0 Mean Corpuscular Hemoglobin Concent 33.3 Red Cell Distribution Width 16.3 Platelet Count 68 Mean Platelet Volume 7.7 Neutrophils (%) (Auto) 67.3 Lymphocytes (%) (Auto) 20.3 Monocytes (%) (Auto) 8.1 Eosinophils (%) (Auto) 3.6 Basophils (%) (Auto) 0.7 Neutrophils # (Auto) 2.6 Lymphocytes # (Auto) 0.8 Monocytes # (Auto) 0.3 Eosinophils # (Auto) 0.1 Basophils # (Auto) 0.0 CBC Comment AUTO DIFF Differential Comment AUTO DIFF CONFIRMED Platelet Estimate LOW Platelet Morphology Comment NORMAL Prothrombin Time 13.6 Prothromb Time International Ratio 1.2 Blood Urea Nitrogen 13 Creatinine 0.63 Random Glucose 132 Total Protein 7.1 Albumin 2.6 Calcium Level 7.6 Alkaline Phosphatase 92 Aspartate Amino Transf (AST/SGOT) 95 Alanine Aminotransferase (ALT/SGPT) 24 Total Bilirubin 4.2 Sodium Level 137 Potassium Level 3.1 3.3 Chloride Level 104 Carbon Dioxide Level 23.5 Anion Gap 10 Estimat Glomerular Filtration Rate 135 Magnesium Level 1.9 Date/Time Source Procedure Growth Status 06/30/17 07:44 Blood Peripheral Aerobic Blood Culture - Preliminary NO GROWTH IN 1 DAY Resulted 06/30/17 07:44 Blood Peripheral Anaerobic Blood Culture - Preliminary NO GROWTH IN 1 DAY Resulted Imaging Last Impressions Head CT 06/30/17 0000 Signed Impressions: Service Date/Time: Saturday, July 01, 2017 02:24 - CONCLUSION: 1. No acute intracranial abnormalities. Previous fixation left maxillary sinus. Albert Walden MD Cervical Spine CT 06/30/17 0000 Signed Impressions: Service Date/Time: Saturday, July 01, 2017 02:24 - CONCLUSION: Normal examination for a patient of this age. Albert Walden MD Abdomen/Pelvis CT 06/29/17 0000 Signed Impressions: Service Date/Time: Thursday, June 29, 2017 12:52 - CONCLUSION: 1. Hepatosplenomegaly and varices noted as above. 2. Atherosclerosis. 3. Abnormal diffuse heterogeneous appearance of the liver which may be related to either marked hepatic steatosis in an inhomogeneous fashion versus steatosis and underlying diffuse liver masses. An MRI of the abdomen with and without contrast may be helpful for further evaluation of this finding. Navjot Chirinos MD Physical Exam HEENT: Normocephalic; atraumatic; no jaundice. CHEST: CTA CARDIAC: RRR ABDOMEN: Semifirm, distended, nontender; bowel sounds are present in all four quadrants. EXTREMITIES: No clubbing, cyanosis, or edema. SKIN: Normal; no rash; no jaundice. 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 Pt reports intermittent nausea/vomiting with dark emesis and occasional red blood and intermittent dark stools. Not actively bleeding. Of note, does report that he has had nose bleeds x 2 days. However, he does have evidence of liver cirrhosis and varcies on CT imaging. EGD/Colonoscopy (12/24/15)---> There was a 5 cm segment of suspected Menendez's esophagus found in the distal esophagus, multiple biopsies were performed, there was erythematous gastritis in the entire examined stomach; multiple biopsies were performed, normal duodenal mucosa in the bulb and second portion of the duodenum, retroflexion was performed and was normal; the colon mucosa was otherwise normal, retroflexed views revealed no abnormalities. Pathology with gastric antral mucosal biopsies with histopathologic features consistent with chemical gastropathy, as may bee seen with bile reflux, non-steroidal anti-inflammatory drugs or other drug induced disease negative for intestinal metaplasia and dysplasia, farhat stain negative for helicobacter. GE mucosal biopsies with chronic inflammatory gastric changes consistent with reflux exhibiting extensive intestinal metaplasia, negative for dysplasia. 1. 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 Gastropathy and mild gastritis 3. Moderate duodenitis 4. No active bleeding and no sign of old bleeding 5. Retroflexed views revealed no abnormalities Pathology pending. PPI. No active bleeding. HH dropped to 8.9/26.8, but no active bleeding. - Abdominal pain, n/v. CT scan abdomen and pelvis (06/29/17)----> Hepatosplenomegaly and varices noted as above. Atherosclerosis. Abnormal diffuse heterogeneous appearance of the liver which may be related to either marked hepatic steatosis in an inhomogeneous fashion versus steatosis and underlying diffuse liver masses. An MRI of the abdomen with and without contrast may be helpful for further evaluation of this finding. Pt states this pain began after a hernia repair in July of 2016 and is intermittent at times, but usually more constant. Will get records. He has some associated constipation. Consider MRI once DT's improve. - Constipation. Chronic. Lactulose. + BM. - Abdominal distention. Unclear if this is related to his chronic constipation , if he perhaps has some ascites. - Liver cirrhosis/Elevated LFTs. Pt reports that he has been told that his liver was enlarged, but never told that he had liver cirrhosis. He continues to drink ETOH, stating [address] has findings of varcies, he has thrombocytopenia, coagulopathy, hypoalbuminemia, all of which support a dx of liver cirrhosis. Will consider MRI abdomen after EGD. Will check liver workup to r/o other underlying liver disease- JOSE negative, ASMA pending, ASMA negative, AFP 4.6. ALpha 1 Antitrypsin pending, Ceruloplasmin pending. Hepatitis profile neg. Suspect this is related to ETOH. DF 6.0. MELD 13. - Menendez's Esopahgus, GERD. Takes ranitidine as needed at home, has daily symptoms. EGD as above. PPI - Thrombocytopenia, Coagulopathy. Likely related to cirrhosis. - Anemia, macrocytic. HH 8.9/26.8. Check folate, B12. - Hepatic encephalopathy, slight shaking, poor historian. Ammonia 67 - ETOH abuse. DT precautions per attending. - Asthma, Depression, Hyperlipidemia. Per attending. PLAN: - 2 gram sodium diet - Await pathology - Cont. Protonix - Cont. Lactulose - Cont. Xifaxan - B12, Folate level - Ferritin, Iron saturation - Ceruloplasmin, Alpha 1 Antitrypsin - Monitor LFTs - Consider MRI once DT's improve - Supportive care - Further recommendations to follow based on results of above - PT seen and examined by Dr. Lott and myself and this note is written on his behalf (oYli Koenig) Plan Patient was seen and examined, agree with above-noted, he had delirium tremor and went to the ICU, now he is awake alert oriented, continue supportive care, watch for more DT, patient needed to quit alcohol completely (Vidya Lott MD) Yoli Koenig Jul 01, 2017 15:30 Vidya Lott MD Jul 02, 2017 08:59
[2017-07-01 17:05] LABS: FOLATE 17.2 NG/ML (3.1-17.5)
[2017-07-01] MEDS: POTASSIUM CHLORIDE 25 MEQ EFFERVESCENT TAB PO PRN (17:53)
[2017-07-01 19:59] LABS: ALPHA-1-ANTITRYPSIN 221 mg/dL (100 - 190)
[2017-07-01] MEDS: traMADol HCL 50 MG TAB PO PRN (19:59)
[2017-07-02] VITALS (14 sets, daily range): BP systolic 104–134; BP diastolic 65–78; PULSE 64–85; RESP 21–32; TEMP 98–98.9; O2SAT 93–98
[2017-07-02] MEDS: INSULIN NovoLIN REGULAR SUPPLEMENTAL SCALE SQ SCH ×6 (02:00→20:16)
[2017-07-02] MEDS: DEXT 5%-NACL 0.9% 1000 ML INJ 1,000 ML IV SCH ×2 (03:13→18:05)
[2017-07-02] MEDS: chlordiazePOXIDE 25 MG CAP PO SCH ×4 (03:13→20:15)
[2017-07-02] MEDS: traMADol HCL 50 MG TAB PO PRN ×3 (03:13→20:17)
[2017-07-02] MEDS: RESP: ALBUTEROL 2.5 MG/IPRATROPIUM 0.5 MG NEB (SCH) NEB ×4 (03:14→20:44)
[2017-07-02 05:41] LABS: AUTOMATED NEUTROPHIL # 3.1 TH/MM3 (1.8-7.7); BASOPHIL % 0.6 % (0.0-2.0); EOSINOPHIL # 0.1 TH/MM3 (0-0.4); EOSINOPHIL % 2.9 % (0.0-4.0); HEMATOCRIT 27.7 % (39.0-51.0); HEMOGLOBIN 9.2 GM/DL (13.0-17.0); LYMPHOCYTE # 0.6 TH/MM3 (1.0-4.8); MEAN CELL VOLUME 106.2 FL (80.0-100.0); MEAN CORPUSCULAR HEMOGLOBIN 35.2 PG (27.0-34.0); MEAN CORPUSCULAR HGB CONC 33.1 % (32.0-36.0); MONOCYTE # 0.4 TH/MM3 (0-0.9); NEUT % 72.5 % (16.0-70.0); PLATELET COUNT 78 TH/MM3 (150-450); RED CELL DISTRIBUTION WIDTH 16.9 % (11.6-17.2); WHITE BLOOD COUNT 4.3 TH/MM3 (4.0-11.0)
[2017-07-02 06:04] LABS: INTERNATIONAL NORMALIZED RATIO 1.2 RATIO; PROTHROMBIN TIME - PATIENT 13.1 SEC (9.8-11.6)
[2017-07-02 06:23] LABS: ALBUMIN 2.6 GM/DL (3.4-5.0); BICARBONATE 23.3 MEQ/L (21.0-32.0); CALCIUM 7.4 MG/DL (8.5-10.1); CALCIUM-PROTEIN CORRECTED 7.6 MG/DL (8.5-10.1); CREATININE 0.67 MG/DL (0.60-1.30); MAGNESIUM 1.9 MG/DL (1.5-2.5); PHOSPHORUS 1.9 MG/DL (2.5-4.9); TOTAL BILIRUBIN ADULT 4.1 MG/DL (0.2-1.0); TOTAL PROTEIN 6.7 GM/DL (6.4-8.2)
--- NOTE | 2017-07-02 08:34 | HHI.CCPN ---
Subjective Remarks/Hospital Course The patient is a 51-year-old male with past medical history of Menendez's esophagus, gastric ulcers, esophageal varices and tobacco abuse. He presented to [facility] ED yesterday for evaluation of abdominal pain. In addition the patient reported melena and some hematemesis. He denied any associated symptoms of nausea, vomiting, shortness of breath, chest pain or any constitutional symptoms. He had a CT of the abdomen and pelvis on arrival which showed hepatosplenomegaly, varices and possible hepatic steatosis. The patient was initially admitted under hospitalist service and evaluated by GI service for possible GI bleed. The patient underwent upper endoscopy today which showed gastropathy and mild gastritis, moderate duodenitis with no signs of active bleeding. He was transferred to [facility] as the patient is likely going into DTs. He was placed on Precedex drip for sedation. Critical Care Medicine was consulted for critical care management. His laboratory data today showed elevated ammonia level at 67. The patient was placed on CIWA protocol. He denies any chest pain, shortness of breath. Subjective 07/01: Afebrile. CT brain, CT C-spine negative early this AM. Currently on dexmedetomidine at 0.8 mics grams per kilogram per hour for sedation. No lorazepam given overnight. Currently in chlordiazepoxide 50 mg every 6 hours scheduled question however that was held as well due to the sedative effects of the dexmedetomidine. 07/02: Off Precedex since midnight. Alert oriented 3. Complaints of abdominal pain and distention. Bedside ultrasound does not show any significant ascites. MRI was recommended for liver mass evaluation-we'll request MRI abdomen. D/W Yoli Koenig Objective Vital Signs Date Time Temp Pulse Resp B/P (MAP) Pulse Ox O2 Delivery O2 Flow Rate FiO2 07/02/17 06:00 70 07/02/17 04:00 98.9 21 117/69 (85) 96 06/30/17 20:45 Nasal Cannula 2.00 06/29/17 15:23 21 Intake and Output 07/02/17 07/02/17 07/03/17 08:00 16:00 00:00 Intake Total 250 ml Output Total 500 ml Balance -250 ml Result Diagram: 07/02/17 0522 07/02/17 0522 Imaging Last Impressions Head CT 06/30/17 0000 Signed Impressions: Service Date/Time: Saturday, July 01, 2017 02:24 - CONCLUSION: 1. No acute intracranial abnormalities. Previous fixation left maxillary sinus. Albert Walden MD Cervical Spine CT 06/30/17 0000 Signed Impressions: Service Date/Time: Saturday, July 01, 2017 02:24 - CONCLUSION: Normal examination for a patient of this age. Albert Walden MD Abdomen/Pelvis CT 06/29/17 0000 Signed Impressions: Service Date/Time: Thursday, June 29, 2017 12:52 - CONCLUSION: 1. Hepatosplenomegaly and varices noted as above. 2. Atherosclerosis. 3. Abnormal diffuse heterogeneous appearance of the liver which may be related to either marked hepatic steatosis in an inhomogeneous fashion versus steatosis and underlying diffuse liver masses. An MRI of the abdomen with and without contrast may be helpful for further evaluation of this finding. Navjot Chirinos MD Objective Remarks GENERAL: 51 yo male, resting in bed mild distress nasal cannula SKIN: Warm and dry. Tattoos on left neck and right upper extremity, abdomen HEAD: Atraumatic. Normocephalic. EYES: Pupils equal and round about 2 mm bilaterally and reactive. No scleral icterus. No injection or drainage. ENT: No nasal bleeding or discharge. Mucous membranes pink and moist. NECK: Trachea midline. No JVD. CARDIOVASCULAR: S1, S2. No S4. Without murmur RESPIRATORY: No accessory muscle use. Clear to auscultation. Breath sounds equal bilaterally. GASTROINTESTINAL: Abdomen somewhat protuberant, mild diffuse tenderness. Hypoactive bowel sounds are appreciated. Nontender. Spleen is palpated below the costal margin. MUSCULOSKELETAL: Extremities with nonpitting lower extremity edema. Pain palpation right ankle lateral aspect. Decreased range of motion NEUROLOGICAL: Awake and alert to person place and time. No obvious cranial nerve deficits. Motor grossly within normal limits. Five out of 5 muscle strength in the arms and legs. Procedures 06/30/17 EGD A/P Assessment and Plan Neuro/Psych: EtOH withdrawal Alcohol dependence History of depression/anxiety Currently on [facility] protocol. Chlordiazepoxide 50 mg by mouth every 6 hours scheduled Dexmedetomidine had been weaned off all night. Remains slightly tremulous Thiamine 100 mg daily, folate 1 mg daily multivitamin 1 tablet daily Seizure precautions CT brain 07/01 revealed no acute intracranial findings. Patient with history of right zygomatic/maxillary sinus surgery 2016 CT C-spine 07/01 negative findings Tramadol 50-100 mg every 4 hours as needed pain If unable to take by mouth, on morphine sulfate 2 to 4 mg IV every 3 hours when necessary pain CV: Atherosclerotic vascular disease Dyslipidemia Asymptomatic bradycardia Clonidine as needed for hypertension/EtOH withdrawal Currently on D5 normal saline at 84 cc an hour Currently not requiring any additional hyperintense and/or vasopressors Bradycardia likely secondary to dexmedetomidine, now improved Resp: Tobaccoism History of asthma/reactive airway disease Nasal cannula to maintain saturations greater than equal to 92% Incentive spirometry while awake On albuterol/ipratropium aerosols every 6 hours with albuterol aerosols every 2 hours when necessary dyspnea Currently on nicotine patch at 14 mg daily. Nicotine cessation education provided GI: History esophageal cancer? Menendez's esophagus Gastroesophageal reflux disease Gout Gastritis/duodenitis Splenomegaly Constipation/chronic Hyperammonia EGD 06/30 by GI revealed mild gastritis, duodenitis. Likely esophagitis/Menendez' s not biopsied. Currently on clear liquid diet Pantoprazole 40 mg IV daily for GI prophylaxis Lactulose 30 cc twice a day and Xifaxan 500 mg by mouth twice a day for hyperammonia. Recheck ammonia level in a.m. CT abdomen/pelvis revealed splenomegaly 19.3 cm. varices at the esophageal hiatus, gastric ligament and left upper quadrant. Renal splenic shunt appreciated. MRI abdomen with and without contrast to evaluate ? Liver mass Liver workup including AMA, ASMA, hepatitis studies all pending : Patient currently with condom catheter. Endo: Elevated TSH 6.7. History of gout Sliding-scale insulin Novulin R every 4 hrs for maintain euglycemia Renal: Creatinine currently within normal limits Monitor urine output Accurate I's and O's Heme: Macrocytic anemia Thrombocytopenia chronic likely secondary to underlying EtOH /cirrhotic liver disease- Leukocytosis Monitor CBC/coags in AM. No signs of hemolysis/consumption thrombocytopenia. This appears to be a chronic condition ID: Pertinent cultures 06/30 - blood cultures 2 -ve to date MSK: Right ankle pain X-ray right ankle rule out fracture-Soft tissue mass noted to be fluid filled on ultrasound 09/10/2012. No acute fracture PT evaluate and treat FEN: Hypokalemia - Electrolyte replacement per protocol Access - Utilize peripheral IV. Central line if indicated Prophylaxis - GI - pantoprazole - DVT - SCD/holding pharmacological prophylaxis in light of thrombocytopenia Level II follow-up Satya El MD Jul 02, 2017 08:34
--- NOTE | 2017-07-02 08:36 | HHI.GIFU ---
Subjective Remarks Resting in bed. C/O abdominal pain. Nausea without vomiting. Worsening abdominal distention. States he has only passed one small bm, although he is passing flatus. Bedside US did not appreciate any significant amount of ascites. (Yoli Koenig) Objective Vitals I&O Vital Signs Date Time Temp Pulse Resp B/P (MAP) Pulse Ox O2 Delivery O2 Flow Rate FiO2 07/02/17 06:00 70 07/02/17 04:00 98.9 78 21 117/69 (85) 96 07/02/17 04:00 78 07/02/17 02:00 64 07/02/17 00:00 98.0 65 21 104/65 (78) 93 07/02/17 00:00 65 07/01/17 22:00 65 07/01/17 21:31 94 07/01/17 20:00 98.0 61 21 100/61 (74) 94 07/01/17 20:00 61 07/01/17 18:00 66 07/01/17 16:00 98.2 61 23 101/58 (72) 93 07/01/17 16:00 61 07/01/17 14:00 60 07/01/17 12:00 57 07/01/17 12:00 97.9 57 20 105/68 (80) 93 07/01/17 10:00 68 I/O 07/01/17 07/01/17 07/01/17 07/02/17 07/02/17 07/02/17 07:00 15:00 23:00 07:00 15:00 23:00 Intake Total 2570 ml 189 ml 1410 ml 250 ml Output Total 350 ml 400 ml 500 ml Balance 2220 ml 189 ml 1010 ml -250 ml Intake Oral 120 ml 450 ml 250 ml IV Total 2450 ml 189 ml 960 ml Output Urine Total 350 ml 400 ml 500 ml # Bowel Movements 0 3 Laboratory Laboratory Tests Test 07/01/17 11:19 07/02/17 05:22 07/02/17 06:00 Potassium Level 3.3 3.5 Magnesium Level 1.9 1.9 Vitamin B12 Level 1711 Folate 17.2 White Blood Count 4.3 Red Blood Count 2.60 Hemoglobin 9.2 Hematocrit 27.7 Mean Corpuscular Volume 106.2 Mean Corpuscular Hemoglobin 35.2 Mean Corpuscular Hemoglobin Concent 33.1 Red Cell Distribution Width 16.9 Platelet Count 78 Mean Platelet Volume 8.0 Neutrophils (%) (Auto) 72.5 Lymphocytes (%) (Auto) 15.0 Monocytes (%) (Auto) 9.0 Eosinophils (%) (Auto) 2.9 Basophils (%) (Auto) 0.6 Neutrophils # (Auto) 3.1 Lymphocytes # (Auto) 0.6 Monocytes # (Auto) 0.4 Eosinophils # (Auto) 0.1 Basophils # (Auto) 0.0 CBC Comment AUTO DIFF Blood Urea Nitrogen 9 Creatinine 0.67 Random Glucose 115 Total Protein 6.7 Albumin 2.6 Calcium Level 7.4 Phosphorus Level 1.9 Alkaline Phosphatase 93 Aspartate Amino Transf (AST/SGOT) 83 Alanine Aminotransferase (ALT/SGPT) 23 Total Bilirubin 4.1 Sodium Level 137 Chloride Level 106 Carbon Dioxide Level 23.3 Anion Gap 8 Estimat Glomerular Filtration Rate 126 Lactic Acid Level 1.1 Protein Corrected Calcium 7.6 Ammonia 33 Total Creatine Kinase 57 Amylase Level 33 Lipase 86 Prothrombin Time 13.1 Prothromb Time International Ratio 1.2 Activated Partial Thromboplast Time 33.6 Fibrinogen 237 Date/Time Source Procedure Growth Status 06/30/17 07:44 Blood Peripheral Aerobic Blood Culture - Preliminary NO GROWTH IN 1 DAY Resulted 06/30/17 07:44 Blood Peripheral Anaerobic Blood Culture - Preliminary NO GROWTH IN 1 DAY Resulted Imaging Last Impressions Ankle X-Ray 07/01/17 0000 Signed Impressions: Service Date/Time: Saturday, July 01, 2017 10:22 - CONCLUSION: Soft tissue mass noted to be fluid filled on ultrasound 09/10/2012. Colten Nelson MD FACR Head CT 06/30/17 0000 Signed Impressions: Service Date/Time: Saturday, July 01, 2017 02:24 - CONCLUSION: 1. No acute intracranial abnormalities. Previous fixation left maxillary sinus. Albert Walden MD Cervical Spine CT 06/30/17 0000 Signed Impressions: Service Date/Time: Saturday, July 01, 2017 02:24 - CONCLUSION: Normal examination for a patient of this age. Albert Walden MD Abdomen/Pelvis CT 06/29/17 0000 Signed Impressions: Service Date/Time: Thursday, June 29, 2017 12:52 - CONCLUSION: 1. Hepatosplenomegaly and varices noted as above. 2. Atherosclerosis. 3. Abnormal diffuse heterogeneous appearance of the liver which may be related to either marked hepatic steatosis in an inhomogeneous fashion versus steatosis and underlying diffuse liver masses. An MRI of the abdomen with and without contrast may be helpful for further evaluation of this finding. Navjot Chirinos MD Physical Exam HEENT: Normocephalic; atraumatic; no jaundice. CHEST: CTA CARDIAC: RRR ABDOMEN: Semifirm, distended, diffuse tenderness; bowel sounds are hypoactive EXTREMITIES: No clubbing, cyanosis, or edema. SKIN: Normal; no rash; no jaundice. 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 Pt reports intermittent nausea/vomiting with dark emesis and occasional red blood and intermittent dark stools. Not actively bleeding. Of note, does report that he has had nose bleeds x 2 days. However, he does have evidence of liver cirrhosis and varcies on CT imaging. EGD/Colonoscopy (12/24/15)---> There was a 5 cm segment of suspected Menendez's esophagus found in the distal esophagus, multiple biopsies were performed, there was erythematous gastritis in the entire examined stomach; multiple biopsies were performed, normal duodenal mucosa in the bulb and second portion of the duodenum, retroflexion was performed and was normal; the colon mucosa was otherwise normal, retroflexed views revealed no abnormalities. Pathology with gastric antral mucosal biopsies with histopathologic features consistent with chemical gastropathy, as may bee seen with bile reflux, non-steroidal anti-inflammatory drugs or other drug induced disease negative for intestinal metaplasia and dysplasia, farhat stain negative for helicobacter. GE mucosal biopsies with chronic inflammatory gastric changes consistent with reflux exhibiting extensive intestinal metaplasia, negative for dysplasia. 1. 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 Gastropathy and mild gastritis 3. Moderate duodenitis 4. No active bleeding and no sign of old bleeding 5. Retroflexed views revealed no abnormalities Pathology pending. PPI. No active bleeding. HH dropped to 9.2/27.7, but no active bleeding. - Abdominal pain, n/v. CT scan abdomen and pelvis (06/29/17)----> Hepatosplenomegaly and varices noted as above. Atherosclerosis. Abnormal diffuse heterogeneous appearance of the liver which may be related to either marked hepatic steatosis in an inhomogeneous fashion versus steatosis and underlying diffuse liver masses. An MRI of the abdomen with and without contrast may be helpful for further evaluation of this finding. Pt states this pain began after a hernia repair in July of 2016 and is intermittent at times, but usually more constant. Will get records. He has some associated constipation. Consider MRI once DT's improve. - Abdominal distention/Constipation. Pt with worsening distention, tenderness today. Seems more tympanic. Reports one small bm, but passing flatus. Bedside US did not appreciate any significant ascites. Will get KUB. Add reglan, miralax. - Liver cirrhosis/Elevated LFTs. Pt reports that he has been told that his liver was enlarged, but never told that he had liver cirrhosis. He continues to drink ETOH, stating [address] has findings of varcies, he has thrombocytopenia, coagulopathy, hypoalbuminemia, all of which support a dx of liver cirrhosis. Will consider MRI abdomen after EGD. Will check liver workup to r/o other underlying liver disease- JOSE negative, ASMA pending, ASMA negative, AFP 4.6. ALpha 1 Antitrypsin 221, Ceruloplasmin pending, Ferritin 94, Iron saturation 14.0%. Hepatitis profile neg. Suspect this is related to ETOH. DF 6.0. MELD 13. - Menendez's Esopahgus, GERD. Takes ranitidine as needed at home, has daily symptoms. EGD as above. PPI - Thrombocytopenia, Coagulopathy. Likely related to cirrhosis. - Anemia, macrocytic. HH stable, 9.2/27.7. Folate 17.2, B12 1711. - Hepatic encephalopathy, slight shaking, poor historian. Ammonia 67, but seems oriented - ETOH abuse. DT precautions per attending. - Asthma, Depression, Hyperlipidemia. Per attending. PLAN: - 2 gram sodium diet- hold until after KUB - Await pathology - KUB to r/o ileus - Add Reglan - Add Miralax - Cont. Protonix - Cont. Lactulose - Cont. Xifaxan - Await Ceruloplasmin - Monitor LFTs - Consider MRI once DT's improve - Supportive care - Further recommendations to follow based on results of above - PT seen and examined by Dr. Lott and myself and this note is written on his behalf (Yoli Koenig) Plan Patient was seen and examined, agree with above-noted, patient is going to have MRI today discussion about complete alcohol cessation with him and his son, we' ll watch for DT, continue supportive care (Vidya Lott MD) Yoli Koenig Jul 02, 2017 08:36 Vidya Lott MD Jul 02, 2017 15:38
[2017-07-02] MEDS: RIFAXIMIN 550 MG TAB PO SCH ×2 (09:07→20:15)
[2017-07-02] MEDS: guaiFENesin E.R. 600 MG TAB PO SCH ×2 (09:07→20:15)
[2017-07-02] MEDS: DOCUSATE SODIUM 50 MG/SENNA 8.6 MG TAB PO SCH ×2 (09:07→20:15)
[2017-07-02] MEDS: MULTIVITAMINS/MINERALS THERAPEUTIC TAB PO SCH (09:07)
[2017-07-02] MEDS: FOLIC ACID 1 MG TAB PO SCH (09:07)
[2017-07-02] MEDS: POLYETHYLENE GLYCOL 17 GM PKG PO SCH (09:08)
[2017-07-02] MEDS: LACTULOSE SYRUP 20 GM/30 ML CUP PO SCH ×2 (09:08→20:15)
[2017-07-02] MEDS: NICOTINE 14 MG/24 HR PATCH T-DERMAL SCH (09:09)
[2017-07-02] MEDS: REMOVE OLD PATCH T-DERMAL SCH (09:10)
[2017-07-02] MEDS: THIAMINE INJ 100 MG in SODIUM CHLORIDE 0.9% INJ 100 ML IV SCH (09:11)
[2017-07-02] MEDS: SODIUM CHLORIDE 0.9% FLUSH 10 ML FLUSH IV FLUSH SCH ×2 (09:11→20:16)
[2017-07-02] MEDS: PANTOPRAZOLE SODIUM 40 MG VIAL IV SCH ×2 (09:11→20:15)
--- NOTE | 2017-07-02 11:20 | RADRPT ---
EXAM DATE/TIME: 07/02/2017 09:22 [facility] COMPARISON: CT ABDOMEN & PELVIS W CONTRAST, June 29, 2017, 12:52. INDICATIONS : Evaluate ileus. MEDICAL HISTORY : None. SURGICAL HISTORY : Inguinal hernia repair. ENCOUNTER: Subsequent ACUITY: 4 - 6 days PAIN SCORE: 10/10 LOCATION: Abdomen. FINDINGS: 2 AP supine views of the abdomen. Multiple mildly distended air-filled loops of small bowel involving all 4 quadrants. Mildly distended diffusely air-filled colon. No abnormal abdominal calcification id entified. Mild bony degenerative findings of the lumbar spine. CONCLUSION: Mildly distended air-filled small bowel and colon. Likely represents ileus. No significant interval c hange from CT of 06/29/2017. Wilbert Howe MD on July 02, 2017 at 11:16 Board Certified Radiologist. This report was verified electronically.
[2017-07-02] MEDS: METOCLOPRAMIDE HCL 10 MG/2 ML VIAL IV PUSH SCH ×3 (11:36→20:16)
[2017-07-02] MEDS ORDERED: GADODIAMIDE PF 287 MG/ML 20 ML VIAL (for RAD MRI) IVCONTRAST ONE (17:13)
--- NOTE | 2017-07-02 17:22 | RADRPT ---
EXAM DATE/TIME: 07/02/2017 16:34 [facility] COMPARISON: CT ABDOMEN & PELVIS W CONTRAST, June 29, 2017, 12:52. INDICATIONS : Liver mass. Abdominal distention. CONTRAST: 19 cc Omniscan (gadodiamide) IV MEDICAL HISTORY : Carcinoma, esophageal. Menendez's. SURGICAL HISTORY : Sinus surgery. Left eye surgery. ENCOUNTER: Subsequent ACUITY: 3 day PAIN SCORE: 4/10 LOCATION: abdomen. TECHNIQUE: Multiplanar, multisequence magnetic resonance imaging of the abdomen was performed without and with i ntravenous contrast. FINDINGS: LIVER: Liver is enlarged measuring 21 cm in craniocaudal dimension. There is diffuse fatty infiltration of t he liver. No focal mass identified. Portal veins are patent. BILIARY: There is no intra- or extra-hepatic biliary ductal dilatation. Gallbladder contains no stones. SPLEEN: Enlarged measuring 16.5 cm in craniocaudal dimension. PANCREAS: Within normal limits. ADRENALS: Within normal limits. KIDNEYS: Normal size and signal intensity. There is no hydronephrosis or mass. OTHER: Aorta is nonaneurysmal. There is no lymphadenopathy. Small amount ascites in the upper abdomen. Small bilateral pleural effusions. CONCLUSION: 1. Hepatomegaly and hepatic steatosis. No focal mass identified. 2. Moderate splenomegaly. 3. Small amount of ascites. 4. Small bilateral pleural effusions. Wilbert Howe MD on July 02, 2017 at 17:14 Board Certified Radiologist. This report was verified electronically.
[2017-07-03] VITALS (17 sets, daily range): BP systolic 135–161; BP diastolic 76–94; PULSE 82–128; RESP 17–38; TEMP 98–98.6; O2SAT 92–100
[2017-07-03] MEDS: INSULIN NovoLIN REGULAR SUPPLEMENTAL SCALE SQ SCH ×4 (01:39→17:24)
[2017-07-03] MEDS: ONDANSETRON HCL 4 MG/2 ML VIAL IVP PRN ×2 (01:39→17:20)
[2017-07-03] MEDS: traMADol HCL 50 MG TAB PO PRN ×3 (01:39→20:57)
[2017-07-03] MEDS: RESP: ALBUTEROL 2.5 MG/IPRATROPIUM 0.5 MG NEB (SCH) NEB ×4 (03:16→22:12)
[2017-07-03] MEDS: DEXT 5%-NACL 0.9% 1000 ML INJ 1,000 ML IV SCH (04:36)
[2017-07-03] MEDS: chlordiazePOXIDE 25 MG CAP PO SCH ×4 (04:36→20:53)
[2017-07-03] MEDS: METOCLOPRAMIDE HCL 10 MG/2 ML VIAL IV PUSH SCH ×3 (04:36→20:53)
[2017-07-03] MEDS: REMOVE OLD PATCH T-DERMAL SCH (09:00)
[2017-07-03] MEDS: THIAMINE INJ 100 MG in SODIUM CHLORIDE 0.9% INJ 100 ML IV SCH (09:12)
[2017-07-03] MEDS: guaiFENesin E.R. 600 MG TAB PO SCH ×2 (09:13→20:59)
[2017-07-03] MEDS: POLYETHYLENE GLYCOL 17 GM PKG PO SCH (09:13)
[2017-07-03] MEDS: FOLIC ACID 1 MG TAB PO SCH (09:13)
[2017-07-03] MEDS: LACTULOSE SYRUP 20 GM/30 ML CUP PO SCH ×2 (09:13→20:59)
[2017-07-03] MEDS: RIFAXIMIN 550 MG TAB PO SCH ×2 (09:13→20:59)
[2017-07-03] MEDS: DOCUSATE SODIUM 50 MG/SENNA 8.6 MG TAB PO SCH ×2 (09:14→20:59)
[2017-07-03] MEDS: MULTIVITAMINS/MINERALS THERAPEUTIC TAB PO SCH (09:15)
[2017-07-03] MEDS: PANTOPRAZOLE SODIUM 40 MG VIAL IV SCH ×2 (09:16→20:59)
[2017-07-03] MEDS: SODIUM CHLORIDE 0.9% FLUSH 10 ML FLUSH IV FLUSH SCH ×2 (09:16→20:59)
[2017-07-03] MEDS: NICOTINE 14 MG/24 HR PATCH T-DERMAL SCH (09:17)
--- NOTE | 2017-07-03 09:47 | HHI.CCPN ---
Subjective Remarks/Hospital Course The patient is a 51-year-old male with past medical history of Menendez's esophagus, gastric ulcers, esophageal varices and tobacco abuse. He presented to [facility] ED yesterday for evaluation of abdominal pain. In addition the patient reported melena and some hematemesis. He denied any associated symptoms of nausea, vomiting, shortness of breath, chest pain or any constitutional symptoms. He had a CT of the abdomen and pelvis on arrival which showed hepatosplenomegaly, varices and possible hepatic steatosis. The patient was initially admitted under hospitalist service and evaluated by GI service for possible GI bleed. The patient underwent upper endoscopy today which showed gastropathy and mild gastritis, moderate duodenitis with no signs of active bleeding. He was transferred to [facility] [place] as the patient is likely going into DTs. He was placed on Precedex drip for sedation. Critical Care Medicine was consulted for critical care management. His laboratory data today showed elevated ammonia level at 67. The patient was placed on CIWA protocol. He denies any chest pain, shortness of breath. Subjective 07/01: Afebrile. CT brain, CT C-spine negative early this AM. Currently on dexmedetomidine at 0.8 mics grams per kilogram per hour for sedation. No lorazepam given overnight. Currently in chlordiazepoxide 50 mg every 6 hours scheduled question however that was held as well due to the sedative effects of the dexmedetomidine. 07/02: Off Precedex since midnight. Alert oriented 3. Complaints of abdominal pain and distention. Bedside ultrasound does not show any significant ascites. MRI was recommended for liver mass evaluation-we'll request MRI abdomen. D/W Yoli Koenig 07/03 No events overnight. Awake and alert. MRI abdomen showed Hepatomegaly and hepatic steatosis. No focal mass identified. Moderate splenomegaly. 3. Small amount of ascites. Small bilateral pleural effusions. Objective Vital Signs Date Time Temp Pulse Resp B/P (MAP) Pulse Ox O2 Delivery O2 Flow Rate FiO2 07/03/17 08:10 97 21 07/03/17 06:00 89 07/03/17 04:00 98.6 30 139/76 (97) 06/30/17 20:45 Nasal Cannula 2.00 Intake and Output 07/03/17 07/03/17 07/04/17 08:00 16:00 00:00 Intake Total 1000 ml Output Total 300 ml Balance 700 ml Result Diagram: 07/02/17 0522 07/02/17 0522 Imaging Last Impressions Abdomen X-Ray 07/02/17 0000 Signed Impressions: Service Date/Time: June 09:22 - CONCLUSION: Mildly distended air-filled small bowel and colon. Likely represents ileus. No significant interval change from CT of 06/29/2017. Wilbert Howe MD Abdomen MRI 07/02/17 0000 Signed Impressions: Service Date/Time: June 16:34 - CONCLUSION: 1. Hepatomegaly and hepatic steatosis. No focal mass identified. 2. Moderate splenomegaly. 3. Small amount of ascites. 4. Small bilateral pleural effusions. Wilbert Howe MD Ankle X-Ray 07/01/17 0000 Signed Impressions: Service Date/Time: Saturday, July 01, 2017 10:22 - CONCLUSION: Soft tissue mass noted to be fluid filled on ultrasound 09/10/2012. Colten Nelson MD FACR Head CT 06/30/17 0000 Signed Impressions: Service Date/Time: Saturday, July 01, 2017 02:24 - CONCLUSION: 1. No acute intracranial abnormalities. Previous fixation left maxillary sinus. Albert Walden MD Cervical Spine CT 06/30/17 0000 Signed Impressions: Service Date/Time: Saturday, July 01, 2017 02:24 - CONCLUSION: Normal examination for a patient of this age. Albert Walden MD Abdomen/Pelvis CT 06/29/17 0000 Signed Impressions: Service Date/Time: Thursday, June 29, 2017 12:52 - CONCLUSION: 1. Hepatosplenomegaly and varices noted as above. 2. Atherosclerosis. 3. Abnormal diffuse heterogeneous appearance of the liver which may be related to either marked hepatic steatosis in an inhomogeneous fashion versus steatosis and underlying diffuse liver masses. An MRI of the abdomen with and without contrast may be helpful for further evaluation of this finding. Navjot Chirinos MD Objective Remarks GENERAL: 51 yo male, resting in bed mild distress nasal cannula SKIN: Warm and dry. Tattoos on left neck and right upper extremity, abdomen HEAD: Atraumatic. Normocephalic. EYES: Pupils equal and round about 2 mm bilaterally and reactive. No scleral icterus. No injection or drainage. ENT: No nasal bleeding or discharge. Mucous membranes pink and moist. NECK: Trachea midline. No JVD. CARDIOVASCULAR: S1, S2. No S4. Without murmur RESPIRATORY: No accessory muscle use. Clear to auscultation. Breath sounds equal bilaterally. GASTROINTESTINAL: Abdomen somewhat protuberant, mild diffuse tenderness. Hypoactive bowel sounds are appreciated. Nontender. Spleen is palpated below the costal margin. MUSCULOSKELETAL: Extremities with nonpitting lower extremity edema. Pain palpation right ankle lateral aspect. Decreased range of motion NEUROLOGICAL: Awake and alert to person place and time. No obvious cranial nerve deficits. Motor grossly within normal limits. Five out of 5 muscle strength in the arms and legs. Procedures 06/30/17 EGD A/P Assessment and Plan Neuro/Psych: EtOH withdrawal Alcohol dependence History of depression/anxiety Currently on [facility] protocol. Chlordiazepoxide 50 mg by mouth every 6 hours scheduled Off Precedex drip Thiamine 100 mg daily, folate 1 mg daily multivitamin 1 tablet daily Seizure precautions CT brain 07/01 revealed no acute intracranial findings. Patient with history of right zygomatic/maxillary sinus surgery 2015 CT C-spine 07/01 negative findings Tramadol 50-100 mg every 4 hours as needed pain CV: Atherosclerotic vascular disease Dyslipidemia Asymptomatic bradycardia Clonidine as needed for hypertension/EtOH withdrawal Currently on D5 normal saline at 84 cc an hour Resp: Tobaccoism History of asthma/reactive airway disease Nasal cannula to maintain saturations greater than equal to 92% Incentive spirometry while awake On albuterol/ipratropium aerosols every 6 hours with albuterol aerosols every 2 hours when necessary dyspnea Currently on nicotine patch at 14 mg daily. GI: History esophageal cancer? Menendez's esophagus Gastroesophageal reflux disease Gout Gastritis/duodenitis Splenomegaly Constipation/chronic Hyperammonia EGD 06/30 by GI revealed mild gastritis, duodenitis. Likely esophagitis/Menendez' s not biopsied. Pantoprazole 40 mg IV daily for GI prophylaxis Lactulose 30 cc twice a day and Xifaxan 500 mg by mouth twice a day for hyperammonia. Recheck ammonia level in a.m. CT abdomen/pelvis revealed splenomegaly 19.3 cm. varices at the esophageal hiatus, gastric ligament and left upper quadrant. Renal splenic shunt appreciated. MRI abdomen showed Hepatomegaly and hepatic steatosis. No focal mass identified. Moderate splenomegaly. Small amount of ascites.Small bilateral pleural effusions. Liver workup including JOSE, ASMA, Hep profile all negative Endo: Elevated TSH 6.7. History of gout Sliding-scale insulin Novulin R every 4 hrs for maintain euglycemia Renal: Monitor renal function, I/O's, electrolytes replacement per protocol. Heme: Macrocytic anemia Thrombocytopenia chronic likely secondary to underlying EtOH /cirrhotic liver disease- Leukocytosis Monitor CBC/coags in AM. No signs of hemolysis/consumption thrombocytopenia. This appears to be a chronic condition ID: Monitor for signs of infections ( Fever, WBC) panculture if spikes fever Pertinent cultures 06/30 - blood cultures 2 -ve to date MSK: Right ankle pain X-ray right ankle rule out fracture-Soft tissue mass noted to be fluid filled on ultrasound 09/10/2012. No acute fracture PT evaluate and treat FEN: Hypokalemia - Electrolyte replacement per protocol Access - Utilize peripheral IV. Central line if indicated Prophylaxis - GI - pantoprazole - DVT - SCD/holding pharmacological prophylaxis in light of thrombocytopenia Will sign off and transfer care to [facility] Level II Vanesa Stinson MD Jul 03, 2017 09:47
[2017-07-03 12:29] LABS: AUTOMATED NEUTROPHIL # 4.9 TH/MM3 (1.8-7.7); BASOPHIL % 0.5 % (0.0-2.0); EOSINOPHIL # 0.1 TH/MM3 (0-0.4); EOSINOPHIL % 1.9 % (0.0-4.0); HEMATOCRIT 32.6 % (39.0-51.0); HEMOGLOBIN 10.6 GM/DL (13.0-17.0); LYMPH % 12.7 % (9.0-44.0); LYMPHOCYTE # 0.8 TH/MM3 (1.0-4.8); MEAN CELL VOLUME 106.7 FL (80.0-100.0); MEAN CORPUSCULAR HEMOGLOBIN 34.7 PG (27.0-34.0); MEAN CORPUSCULAR HGB CONC 32.5 % (32.0-36.0); MEAN PLATELET VOLUME 7.9 FL (7.0-11.0); MONO % 9.4 % (0.0-8.0); MONOCYTE # 0.6 TH/MM3 (0-0.9); NEUT % 75.5 % (16.0-70.0); PLATELET COUNT 104 TH/MM3 (150-450); RED BLOOD COUNT 3.06 MIL/MM3 (4.50-5.90); RED CELL DISTRIBUTION WIDTH 17.8 % (11.6-17.2); WHITE BLOOD COUNT 6.5 TH/MM3 (4.0-11.0)
[2017-07-03 12:47] LABS: ALBUMIN 2.6 GM/DL (3.4-5.0); ALT (GPT) 23 U/L (12-78); AST (GOT) 67 U/L (15-37); BICARBONATE 23.3 MEQ/L (21.0-32.0); BLOOD UREA NITROGEN 5 MG/DL (7-18); CALCIUM 7.5 MG/DL (8.5-10.1); CHLORIDE 108 MEQ/L (98-107); CREATININE 0.59 MG/DL (0.60-1.30); GLOMERULAR FILTRATION RATE 145 ML/MIN (>89); GLUCOSE,RANDOM 115 MG/DL (74-106); MAGNESIUM 2.1 MG/DL (1.5-2.5); PHOSPHORUS 2.5 MG/DL (2.5-4.9); SODIUM (NA) 138 MEQ/L (136-145)
[2017-07-03 12:49] LABS: ALKALINE PHOSPHATASE 88 U/L (45-117); TOTAL BILIRUBIN ADULT 4.5 MG/DL (0.2-1.0); TOTAL PROTEIN 6.8 GM/DL (6.4-8.2)
[2017-07-03] MEDS: POTASSIUM CHLOR 20 MEQ PREMIX 100 ML IV PRN ×2 (16:21→18:25)
--- NOTE | 2017-07-03 16:46 | HHI.GIFU ---
Subjective Remarks Resting in bed. C/O worsening abdominal pain, distention. This is worse than yesterday. No n/v. Taking clears, no solids. No bm. No bleeding. (Yoli Koenig) Objective Vitals I&O Vital Signs Date Time Temp Pulse Resp B/P (MAP) Pulse Ox O2 Delivery O2 Flow Rate FiO2 07/03/17 16:00 98.3 96 38 156/94 (114) 94 07/03/17 12:00 98.3 93 25 137/80 (99) 92 07/03/17 08:10 97 21 07/03/17 08:00 98.2 104 34 146/88 (107) 95 07/03/17 06:00 89 07/03/17 04:00 98.6 82 30 139/76 (97) 96 07/03/17 04:00 82 07/03/17 02:00 82 07/03/17 00:00 98.1 96 34 135/83 (100) 93 07/03/17 00:00 96 07/02/17 22:00 84 07/02/17 20:44 98 07/02/17 20:00 98.0 82 31 134/78 (96) 97 07/02/17 20:00 84 07/02/17 18:00 85 I/O 07/02/17 07/02/17 07/02/17 07/03/17 07/03/17 07/03/17 07:00 15:00 23:00 07:00 15:00 23:00 Intake Total 250 ml 501 ml 1000 ml Output Total 500 ml 580 ml 300 ml Balance -250 ml -79 ml 700 ml Intake Oral 250 ml 400 ml IV Total 101 ml 1000 ml Output Urine Total 500 ml 580 ml 300 ml # Bowel Movements 3 1 1 Laboratory Laboratory Tests Test 07/03/17 11:50 White Blood Count 6.5 Red Blood Count 3.06 Hemoglobin 10.6 Hematocrit 32.6 Mean Corpuscular Volume 106.7 Mean Corpuscular Hemoglobin 34.7 Mean Corpuscular Hemoglobin Concent 32.5 Red Cell Distribution Width 17.8 Platelet Count 104 Mean Platelet Volume 7.9 Neutrophils (%) (Auto) 75.5 Lymphocytes (%) (Auto) 12.7 Monocytes (%) (Auto) 9.4 Eosinophils (%) (Auto) 1.9 Basophils (%) (Auto) 0.5 Neutrophils # (Auto) 4.9 Lymphocytes # (Auto) 0.8 Monocytes # (Auto) 0.6 Eosinophils # (Auto) 0.1 Basophils # (Auto) 0.0 CBC Comment DIFF FINAL Differential Comment Blood Urea Nitrogen 5 Creatinine 0.59 Random Glucose 115 Total Protein 6.8 Albumin 2.6 Calcium Level 7.5 Phosphorus Level 2.5 Magnesium Level 2.1 Alkaline Phosphatase 88 Aspartate Amino Transf (AST/SGOT) 67 Alanine Aminotransferase (ALT/SGPT) 23 Total Bilirubin 4.5 Sodium Level 138 Potassium Level 3.1 Chloride Level 108 Carbon Dioxide Level 23.3 Anion Gap 7 Estimat Glomerular Filtration Rate 145 Date/Time Source Procedure Growth Status 06/30/17 07:44 Blood Peripheral Aerobic Blood Culture - Preliminary NO GROWTH IN 3 DAYS Resulted 06/30/17 07:44 Blood Peripheral Anaerobic Blood Culture - Preliminary NO GROWTH IN 3 DAYS Resulted Physical Exam HEENT: Normocephalic; atraumatic; no jaundice. CHEST: CTA CARDIAC: RRR ABDOMEN: Firm, significant abdominal distention, diffuse tenderness; bowel sounds are hypoactive EXTREMITIES: No clubbing, cyanosis, or edema. SKIN: Normal; no rash; no jaundice. 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 Pt reports intermittent nausea/vomiting with dark emesis and occasional red blood and intermittent dark stools. Not actively bleeding. Of note, does report that he has had nose bleeds x 2 days. However, he does have evidence of liver cirrhosis and varcies on CT imaging. EGD/Colonoscopy (12/24/15)---> There was a 5 cm segment of suspected Menendez's esophagus found in the distal esophagus, multiple biopsies were performed, there was erythematous gastritis in the entire examined stomach; multiple biopsies were performed, normal duodenal mucosa in the bulb and second portion of the duodenum, retroflexion was performed and was normal; the colon mucosa was otherwise normal, retroflexed views revealed no abnormalities. Pathology with gastric antral mucosal biopsies with histopathologic features consistent with chemical gastropathy, as may bee seen with bile reflux, non-steroidal anti-inflammatory drugs or other drug induced disease negative for intestinal metaplasia and dysplasia, farhat stain negative for helicobacter. GE mucosal biopsies with chronic inflammatory gastric changes consistent with reflux exhibiting extensive intestinal metaplasia, negative for dysplasia. 1. 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 Gastropathy and mild gastritis 3. Moderate duodenitis 4. No active bleeding and no sign of old bleeding 5. Retroflexed views revealed no abnormalities PPI. No active bleeding. HH 10.6/32.6. - Ileus with worsening abdominal distention, pain. CT scan abdomen and pelvis ( 06/29/17)----> Hepatosplenomegaly and varices noted as above. Atherosclerosis. Abnormal diffuse heterogeneous appearance of the liver which may be related to either marked hepatic steatosis in an inhomogeneous fashion versus steatosis and underlying diffuse liver masses. An MRI of the abdomen with and without contrast may be helpful for further evaluation of this finding. Pt states this pain began after a hernia repair in July of 2016 and is intermittent at times, but usually more constant. KUB ( 07/02/17)---> Mildly distended air-filled small bowel and colon. Likely represents ijleus. No significant interval change from CT of 06/29/17. Was started on Reglan, Miralax, but no improvement. In fact, worsening distention today. Will place on clears. Fleets enema. After enema, place red rectal tube to gravity. KUB in am. - Liver cirrhosis/Elevated LFTs. Pt reports that he has been told that his liver was enlarged, but never told that he had liver cirrhosis. He continues to drink ETOH, stating [address] has findings of varcies, he has thrombocytopenia, coagulopathy, hypoalbuminemia, all of which support a dx of liver cirrhosis. MRI (07/02/17)---> hepatomegaly and hepatic steatosis, no focal mass identified. Moderate splenomegaly, small amount of of ascites. Small bilateral pleural effusion. Will check liver workup to r/o other underlying liver disease- JOSE negative, AMA p, ASMA negative, AFP 4.6. ALpha 1 Antitrypsin 221, Ceruloplasmin pending, Ferritin 94, Iron saturation 14.0%. Hepatitis profile neg. Suspect this is related to ETOH. DF 6.0. MELD 13. - Menendez's Esopahgus, GERD. Takes ranitidine as needed at home, has daily symptoms. EGD as above. PPI - Thrombocytopenia, Coagulopathy. Likely related to cirrhosis. - Anemia, macrocytic. HH stable, 10.6/32.6. Folate 17.2, B12 1711. - Hepatic encephalopathy, slight shaking, poor historian. Ammonia 67, but seems oriented - ETOH abuse. DT precautions per attending. - Asthma, Depression, Hyperlipidemia. Per attending. PLAN: - NPO - Insert NGT to LIWS - Enema x 1 - Insert red rectal tube and place to gravity - KUB in am - Cont. Reglan - Cont.Miralax - Cont. Protonix - Cont. Lactulose - Cont. Xifaxan - Await Ceruloplasmin, AMA - Monitor labs - Supportive care - Further recommendations to follow based on results of above - PT seen and examined by Dr. Lott and myself and this note is written on his behalf (Yoli Koenig) Plan Patient was seen and examined, agree with above note, we will hold off on feeding patient and will try to help resolving the ileus, liver workup still in progress (Vidya Lott MD) Yoli Koenig Jul 03, 2017 16:46 Vidya Lott MD Jul 03, 2017 18:06
[2017-07-03] MEDS ORDERED: SOD PHOSPHATE/SOD BIPHOSPHATE (ADULT) ENEMA 133ML RECTAL ONE (17:00)
[2017-07-03] MEDS ORDERED: FUROSEMIDE 40 MG/4 ML VIAL IV PUSH ONE (19:15)
[2017-07-03] MEDS: DEXMEDETOMIDINE INJ 200 MCG in SODIUM CHLORIDE 0.9% INJ 50 ML IV PRN (22:27)
--- NOTE | 2017-07-03 22:39 | RADRPT ---
EXAM DATE/TIME: 07/03/2017 22:11 [facility] COMPARISON: CT THORAX W CONTRAST, December 22, 2015, 16:07. INDICATIONS : Cough, chest congestion MEDICAL HISTORY : Esophageal carcinoma SURGICAL HISTORY : None. ENCOUNTER: Initial ACUITY: 1 day PAIN SCORE: Non-responsive. LOCATION: Bilateral chest FINDINGS: Mild infiltrate seen on the left, mainly in the left upper lobe. Right lung clear. No pleural effusio n or pneumothorax demonstrated. Heart size stable, within normal limits. There is a nasogastric tube with tip in the stomach. CONCLUSION: Early/mild left upper lobe pneumonia suspected. Nasogastric tube courses into the stomach. Nikko Owen MD on July 03, 2017 at 22:36 Board Certified Radiologist. This report was verified electronically.
[2017-07-04] VITALS (17 sets, daily range): BP systolic 122–165; BP diastolic 75–91; PULSE 84–141; RESP 19–42; TEMP 97.7–99.8; O2SAT 90–100
[2017-07-04] MEDS: INSULIN NovoLIN REGULAR SUPPLEMENTAL SCALE SQ SCH ×6 (02:00→21:10)
[2017-07-04] MEDS: RESP: ACETYLCYSTEINE 10% 30 ML NEB NEB SCH ×4 (04:02→20:49)
[2017-07-04] MEDS: RESP: ALBUTEROL 2.5 MG/IPRATROPIUM 0.5 MG NEB (SCH) NEB ×4 (04:03→21:11)
[2017-07-04] MEDS: chlordiazePOXIDE 25 MG CAP PO SCH ×2 (05:45→10:08)
[2017-07-04] MEDS: DEXMEDETOMIDINE INJ 200 MCG in SODIUM CHLORIDE 0.9% INJ 50 ML IV PRN (05:45)
[2017-07-04] MEDS: METOCLOPRAMIDE HCL 10 MG/2 ML VIAL IV PUSH SCH ×3 (05:45→20:38)
[2017-07-04 06:10] LABS: AUTOMATED NEUTROPHIL # 4.5 TH/MM3 (1.8-7.7); BASOPHIL % 0.4 % (0.0-2.0); EOSINOPHIL # 0.2 TH/MM3 (0-0.4); EOSINOPHIL % 2.8 % (0.0-4.0); HEMATOCRIT 34.1 % (39.0-51.0); HEMOGLOBIN 11.2 GM/DL (13.0-17.0); LYMPH % 10.7 % (9.0-44.0); LYMPHOCYTE # 0.7 TH/MM3 (1.0-4.8); MEAN CELL VOLUME 107.3 FL (80.0-100.0); MEAN CORPUSCULAR HEMOGLOBIN 35.2 PG (27.0-34.0); MEAN CORPUSCULAR HGB CONC 32.8 % (32.0-36.0); MEAN PLATELET VOLUME 8.1 FL (7.0-11.0); MONO % 13.1 % (0.0-8.0); MONOCYTE # 0.8 TH/MM3 (0-0.9); PLATELET COUNT 123 TH/MM3 (150-450); RED BLOOD COUNT 3.18 MIL/MM3 (4.50-5.90); RED CELL DISTRIBUTION WIDTH 17.3 % (11.6-17.2); WHITE BLOOD COUNT 6.1 TH/MM3 (4.0-11.0)
--- NOTE | 2017-07-04 06:13 | RADRPT ---
EXAM DATE/TIME: 07/04/2017 05:30 [facility] COMPARISON: ABDOMEN KUB ONLY, July 02, 2017, 9:22. INDICATIONS : Re-evaluate ileus MEDICAL HISTORY : None. SURGICAL HISTORY : Inguinal hernia repair. ENCOUNTER: Subsequent ACUITY: 1 week PAIN SCORE: Non-responsive. LOCATION: Bilateral Abdomen FINDINGS: Gaseous distention of bowel is similar to July 02. Nasogastric tube is coiled in the stomach. No free air is identified. CONCLUSION: 1. Stable gaseous distention of bowel since July 02 comparison. Albert Walden MD on July 04, 2017 at 6:10 Board Certified Radiologist. This report was verified electronically.
[2017-07-04 06:31] LABS: ALBUMIN 2.8 GM/DL (3.4-5.0); AST (GOT) 62 U/L (15-37); BICARBONATE 22.3 MEQ/L (21.0-32.0); BLOOD UREA NITROGEN 7 MG/DL (7-18); CALCIUM 8.1 MG/DL (8.5-10.1); CHLORIDE 105 MEQ/L (98-107); CREATININE 0.79 MG/DL (0.60-1.30); GLOMERULAR FILTRATION RATE 104 ML/MIN (>89); GLUCOSE,RANDOM 112 MG/DL (74-106); SODIUM (NA) 138 MEQ/L (136-145)
[2017-07-04 06:35] LABS: ALKALINE PHOSPHATASE 96 U/L (45-117); ALT (GPT) 22 U/L (12-78); TOTAL BILIRUBIN ADULT 5.3 MG/DL (0.2-1.0); TOTAL PROTEIN 7.3 GM/DL (6.4-8.2)
--- NOTE | 2017-07-04 08:26 | HHI.PR ---
Subjective Remarks f/u; DT's/ GI bleed/ileus ill looking- on oxygen via [place]. with some sob,tachypnea and cough. afebrile. no report of GI bleed- still on Precedex drip. NG tube in place. d/w the RN. Objective Vitals Vital Signs Date Time Temp Pulse Resp B/P (MAP) Pulse Ox O2 Delivery O2 Flow Rate FiO2 07/04/17 06:00 84 07/04/17 04:00 98.6 91 19 144/79 (100) 99 07/04/17 04:00 91 07/04/17 03:00 89 31 122/75 (91) 100 07/04/17 02:00 88 07/04/17 02:00 88 20 124/76 (92) 100 07/04/17 01:00 96 21 126/76 (93) 100 07/04/17 00:00 98.6 102 29 134/85 (101) 90 07/04/17 00:00 102 07/03/17 23:00 110 25 141/90 (107) 95 07/03/17 22:30 96 Simple Mask 10.00 07/03/17 22:12 94 Nasal Cannula 6.00 07/03/17 22:00 128 07/03/17 22:00 128 36 147/90 (109) 92 07/03/17 21:00 116 17 161/92 (115) 97 07/03/17 20:00 99 07/03/17 20:00 98.0 99 30 152/89 (110) 100 07/03/17 18:00 97 07/03/17 16:00 98.3 96 38 156/94 (114) 94 07/03/17 16:00 96 07/03/17 14:00 90 07/03/17 12:00 93 07/03/17 12:00 98.3 93 25 137/80 (99) 92 07/03/17 10:00 90 I/O 07/03/17 07/03/17 07/03/17 07/04/17 07/04/17 07/04/17 07:00 15:00 23:00 07:00 15:00 23:00 Intake Total 1000 ml 550 ml Output Total 300 ml 800 ml 1125 ml Balance 700 ml -250 ml -1125 ml Intake Oral 350 ml IV Total 1000 ml 200 ml Output Urine Total 300 ml 400 ml 900 ml Gastric Drainage Total 350 ml 225 ml Emesis 50 ml # Bowel Movements 1 0 Result Diagram: 07/04/1727 07/04/17526 Imaging Last Impressions Chest X-Ray 07/03/17 Signed Impressions: Service Date/Time: Monday, July 03, 2017 22:11 - CONCLUSION: Early/mild left upper lobe pneumonia suspected. Nasogastric tube courses into the stomach. Nikko Owen MD Abdomen X-Ray 07/02/17 Signed Impressions: Service Date/Time: June 09:22 - CONCLUSION: Mildly distended air-filled small bowel and colon. Likely represents ileus. No significant interval change from CT of 06/29/2017. Wilbert Howe MD Abdomen MRI 07/02/17 Signed Impressions: Service Date/Time: June 16:34 - CONCLUSION: 1. Hepatomegaly and hepatic steatosis. No focal mass identified. 2. Moderate splenomegaly. 3. Small amount of ascites. 4. Small bilateral pleural effusions. Wilbert Howe MD Ankle X-Ray 07/01/17 Signed Impressions: Service Date/Time: Saturday, July 01, 2017 10:22 - CONCLUSION: Soft tissue mass noted to be fluid filled on ultrasound 09/10/2012. Colten Nelson MD FACR Head CT 06/30/17 Signed Impressions: Service Date/Time: Saturday, July 01, 2017 02:24 - CONCLUSION: 1. No acute intracranial abnormalities. Previous fixation left maxillary sinus. Albert Walden MD Cervical Spine CT 06/30/17 0000 Signed Impressions: Service Date/Time: Saturday, July 01, 2017 02:24 - CONCLUSION: Normal examination for a patient of this age. Albert Walden MD Abdomen/Pelvis CT 06/29/17 0000 Signed Impressions: Service Date/Time: Thursday, June 29, 2017 12:52 - CONCLUSION: 1. Hepatosplenomegaly and varices noted as above. 2. Atherosclerosis. 3. Abnormal diffuse heterogeneous appearance of the liver which may be related to either marked hepatic steatosis in an inhomogeneous fashion versus steatosis and underlying diffuse liver masses. An MRI of the abdomen with and without contrast may be helpful for further evaluation of this finding. Navjot Chirinos MD Objective Remarks GENERAL: ill-looking. CARDIOVASCULAR: Regular rate and regular rhythm without murmurs, gallops, or rubs. RESPIRATORY: mild diffuse wheezing with occasional cough GASTROINTESTINAL: Abdomen soft, non-tender, distended. Normal, active bowel sounds MUSCULOSKELETAL: Extremities without clubbing, cyanosis, or edema. NEURO: mildly lethargic but easily arousable Procedures 06/30/17 EGD Medications and IVs Current Medications Sodium Chloride (NS Flush) 2 ml UNSCH PRN IV FLUSH FLUSH AFTER USING IV ACCESS ; Start 06/29/17 at 11:00; Stop 06/29/17 at 15:56; Status DC Iohexol (Omnipaque 350 Inj) 92 ml STK-MED ONCE IVCONTRAST Last administered on 06/29/17 10:21; Start 06/29/17 at 10:21; Stop 06/29/17 at 13:05; Status DC Octreotide Acetate (SandoSTATIN INJ) 100 mcg ONCE ONCE IV PUSH Last administered on 06/29/17 14:31; Start 06/29/17 at 14:15; Stop 06/29/17 at 14:27 ; Status DC Pantoprazole Sodium (Protonix Inj) 80 mg ONCE ONCE IV PUSH Last administered on 06/29/17 14:31; Start 06/29/17 at 14:15; Stop 06/29/17 at 14:27; Status DC Clonidine (Catapres) 0.1 mg Q4H PRN PO SBP>160, DBP>90; Start 06/29/17 at 16:00 Sodium Chloride 1,000 ml @ 100 mls/hr Q10H IV Last administered on 06/30/17 12:00; Start 06/29/17 at 16:00; Stop 06/30/17 at 17:09; Status DC Sodium Chloride (NS Flush) 2 ml UNSCH PRN IV FLUSH FLUSH AFTER USING IV ACCESS ; Start 06/29/17 at 16:00 Sodium Chloride (NS Flush) 2 ml BID IV FLUSH Last administered on 07/03/17 20: 59; Start 06/29/17 at 21:00 Acetaminophen (Tylenol) 650 mg Q4H PRN PO TEMP > 100.4; Start 06/29/17 at 15:15 Ondansetron HCl (Zofran Inj) 4 mg Q6H PRN IVP NAUSEA OR VOMITING Last administered on 07/03/17 17:20; Start 06/29/17 at 15:15 Prochlorperazine (Compazine Supp) 25 mg Q12H PRN RECTAL NAUSEA OR VOMITING; Start 06/29/17 at 15:15 Acetaminophen (Tylenol) 650 mg Q6H PRN PO PAIN SCALE 1 TO 2 Last administered on 06/30/17 04:52; Start 06/29/17 at 15:15 Morphine Sulfate (Morphine Inj) 2 mg Q3H PRN IV PUSH Pain 3-5; if unable to take PO; Start 06/29/17 at 16:00 Morphine Sulfate (Morphine Inj) 4 mg Q3H PRN IV PUSH Pain 6-10;if unable to take PO; Start 06/29/17 at 16:00 Tramadol HCl (Ultram) 50 mg Q4H PRN PO PAIN SCALE 3 TO 5 Last administered on 01:39; Start 06/29/17 at 16:00 Tramadol HCl (Ultram) 100 mg Q4H PRN PO PAIN SCALE 6 TO 10 Last administered on 07/03/17 20:57; Start 06/29/17 at 16:00 Naloxone HCl (Narcan Inj) 0.4 mg UNSCH PRN IV PUSH SEE LABEL COMMENTS; Start at 16:00 Senna/Docusate Sodium (Brittany-Colace) 1 tab BID PO Last administered on 20:59; Start 06/29/17 at 21:00 Magnesium Hydroxide (Milk Of Magnesia Liq) 30 ml Q12H PRN PO MILD - MODERATE CONSTIPATION; Start 06/29/17 at 15:15 Sennosides (Senokot) 17.2 mg Q12H PRN PO MODERATE - SEVERE CONSTIPATION; Start 06/29/17 at 15:15 Bisacodyl (Dulcolax Supp) 10 mg DAILY PRN RECTAL SEVERE CONSITIPATION; Start at 15:15 Lactulose (Lactulose Liq) 30 ml DAILY PRN PO SEVERE CONSITIPATION; Start at 15:15 Flumazenil (Romazicon Inj) 0.2 mg Q1M PRN IV PUSH SEE LABEL COMMENTS; Start at 16:00 Lorazepam (Ativan) 1 mg Q4H PRN PO CIWA 8 - 10 Last administered on 06/30/17 09:32; Start 06/29/17 at 16:00 Lorazepam (Ativan Inj) 1 mg Q4H PRN IV PUSH CIWA 8 - 10; Start 06/29/17 at 16: 00 Lorazepam (Ativan) 2 mg Q2H PRN PO CIWA 11-14; Start 06/29/17 at 16:00 Lorazepam (Ativan Inj) 2 mg Q2H PRN IV PUSH CIWA 11-14 Last administered on 13:52; Start 06/29/17 at 16:00 Lorazepam (Ativan Inj) 2 mg Q1H PRN IV PUSH CIWA 15-20; Start 06/29/17 at 16:00 Lorazepam (Ativan Inj) 2 mg Q15M PRN IV PUSH CIWA > 20; Start 06/29/17 at 16:00 Haloperidol Lactate (Haldol Inj) 2 mg Q15M PRN IM SEE LABEL COMMENTS; Start at 16:00 Sodium Chloride (NS Flush) 2 ml UNSCH PRN IV FLUSH FLUSH AFTER USING IV ACCESS ; Start 06/29/17 at 15:15; Status UNV Sodium Chloride (NS Flush) 2 ml BID IV FLUSH ; Start 06/29/17 at 21:00; Status UNV Folic Acid (Folate) 1 mg DAILY PO Last administered on 07/03/17 09:13; Start 06/29/17 at 16:00; Stop 07/04/17 at 15:59 Thiamine HCl (Vitamin B1) 100 mg DAILY PO Last administered on 06/30/17 08:10 ; Start 06/29/17 at 16:00; Status Future hold Multivitamins/ Minerals Therapeutic (Theragran M Tab) 1 tab DAILY PO Last administered on 07/03/17 09:15; Start 06/29/17 at 16:00; Stop 07/04/17 at 15:59 Clonidine (Catapres) 0.1 mg Q6H PRN PO SEE LABEL COMMENTS; Start 06/29/17 at 16 :00 Sodium Chloride (NS Flush) 2 ml UNSCH PRN IV FLUSH FLUSH AFTER USING IV ACCESS ; Start 06/29/17 at 15:15; Status UNV Sodium Chloride (NS Flush) 2 ml BID IV FLUSH ; Start 06/29/17 at 21:00; Status UNV Pantoprazole Sodium (Protonix Inj) 40 mg BID IV Last administered on 07/03/17 20:59; Start 06/29/17 at 21:00 Albuterol/ Ipratropium (Duoneb Neb) 1 ampule Q4HR NEB PRN NEB sob; Start at 15:30; Stop 07/01/17 at 07:05; Status DC Guaifenesin (Mucinex Er) 600 mg BID PO Last administered on 07/03/17 09:13; Start 06/29/17 at 21:00 Nicotine (Habitrol 14 Mg Patch.24 Hr) 1 patch ONCE ONCE T-DERMAL Last administered on 06/29/17 18:04; Start 06/29/17 at 16:00; Stop 06/29/17 at 16:01 ; Status DC Nicotine (Habitrol 14 Mg Patch.24 Hr) 1 patch DAILY T-DERMAL Last administered on 07/03/17 09:17; Start 06/30/17 at 09:00 Miscellaneous Information 1 DAILY T-DERMAL Last administered on 07/03/17 09:00 ; Start 06/30/17 at 09:00 Rifaximin (Xifaxan) 550 mg BID PO Last administered on 07/03/17 20:59; Start 06/30/17 at 11:45 Lactulose (Lactulose Liq) 30 ml BID PO Last administered on 07/03/17 20:59; Start 06/30/17 at 21:00 Miscellaneous Information ALL NURSING DEPARTME... UNSCH PRN .XX SEE LABEL COMMENTS; Start 06/30/17 at 12:56; Stop 07/01/17 at 12:55; Status DC Chlordiazepoxide (Librium) 50 mg Q6H PO Last administered on 07/04/17 05:45; Start 06/30/17 at 16:00 Dexmedetomidine HCl 200 mcg/ Sodium Chloride 50 ml @ 4.86 mls/hr TITRATE PRN IV Desired RASS; Start 06/30/17 at 16:00; Stop 06/30/17 at 16:25; Status DC Dexmedetomidine HCl 1000 mcg/ Sodium Chloride 250 ml @ 4.86 mls/hr TITRATE PRN IV Desired RASS Last administered on 07/01/17 09:03; Start 06/30/17 at 16: 30; Stop 07/03/17 at 09:48; Status DC Dextrose/Sodium Chloride 1,000 ml @ 84 mls/hr [id number] IV Last administered on 07/03/17 04:36; Start 06/30/17 at 17:15; Stop 07/03/17 at 09:48; Status DC Dextrose (D50w (Vial) Inj) 50 ml UNSCH PRN IV PUSH HYPOGLYCEMIA-SEE COMMENTS; Start 06/30/17 at 17:15 Glucagon (Glucagon Inj) 1 mg UNSCH PRN OTHER HYPOGLYCEMIA-SEE COMMENTS; Start 06/30/17 at 17:15 Insulin Human Regular (NovoLIN R SUPPLEMENTAL SCALE) 1 Q4H SQ ; Start 06/30/17 at 18:00 Albuterol/ Ipratropium (Duoneb Neb) 1 ampule Q2HR NEB PRN NEB sob Last administered on 07/03/17 23:32; Start 07/01/17 at 07:15 Thiamine HCl 100 mg/Sodium Chloride 101 ml @ 101 mls/hr DAILY IV Last administered on 07/03/17 09:12; Start 07/01/17 at 09:00; Stop 07/04/17 at 08:59 Albuterol/ Ipratropium (Duoneb Neb) 1 ampule Q6HR NEB NEB Last administered on 07/04/17 04:03; Start 07/01/17 at 10:00 Potassium Chloride (KCl) 80 meq ONCE ONCE PO Last administered on 07/01/17 09 :00; Start 07/01/17 at 07:15; Stop 07/01/17 at 07:37; Status DC Potassium Chloride 100 ml @ 50 mls/hr Q2H PRN IV For Potassium 2.8 - 3.2 mEq/L ; Start 07/01/17 at 09:30 Potassium Chloride 100 ml @ 50 mls/hr Q2H PRN IV For Potassium 2.8 - 3.2 mEq/ L Last administered on 07/03/17 18:25; Start 07/01/17 at 09:30 Potassium Bicarb/ Potassium Chloride (K-Lyte Cl Eff) 50 meq UNSCH PRN PO For Potassium 3.3 - 3.5 mEq/L Last administered on 9/27/17at 17:53; Start 07/01/17 at 09:30 Potassium Chloride 100 ml @ 25 mls/hr UNSCH PRN IV For Potassium 3.3 - 3.5 mEq /L; Start 07/01/17 at 09:30 Potassium Chloride 100 ml @ 50 mls/hr Q2H PRN IV For Potassium 3.3 - 3.5 mEq/L ; Start 07/01/17 at 09:30 Magnesium Sulfate 4 gm/Sodium Chloride 100 ml @ 50 mls/hr UNSCH PRN IV For Magnesium 0.9 - 1.1 mg/dL; Start 07/01/17 at 09:30 Magnesium Oxide (Mag-Ox) 800 mg UNSCH PRN PO For Magnesium 1.2 - 1.6 mg/dL; Start 07/01/17 at 09:30 Magnesium Sulfate 2 gm/Sodium Chloride 100 ml @ 50 mls/hr UNSCH PRN IV For Magnesium 1.2 - 1.6 mg/dL; Start 07/01/17 at 09:30 Potassium Phosphate (K-Phos) 2,000 mg Q4H PRN PO For Phosphorus < 2.5 mg/dL; Start 07/01/17 at 09:30 Sodium Phosphate 30 mmol/Sodium Chloride 250 ml @ 42 mls/hr UNSCH PRN IV For Phosphorus < 2.5 mg/dL; Start 07/01/17 at 09:30 Potassium Phosphate (K-Phos) 2,000 mg UNSCH PRN PO/TUBE SEE LABEL COMMENTS; Start 07/01/17 at 09:30 Potassium Phosphate 30 mmol/ Sodium Chloride 260 ml @ 42 mls/hr UNSCH PRN IV SEE LABEL COMMENTS; Start 07/01/17 at 09:30 Lidocaine HCl (Xylocaine-Mpf 1% Inj) 5 ml STK-MED ONCE OTHER ; Start 06/30/17 at 12:00; Stop 07/01/17 at 15:24; Status DC Propofol (Diprivan 200 Mg/20 ml Inj) 400 mg STK-MED ONCE IV ; Start 06/30/17 at 12:00; Stop 07/01/17 at 15:24; Status DC Metoclopramide HCl (Reglan Inj) 10 mg Q8HR IV PUSH Last administered on t 05:45; Start 07/02/17 at 09:00 Polyethylene Glycol (Miralax) 17 gm DAILY PO Last administered on 07/03/17 09: 13; Start 07/02/17 at 09:00 Gadodiamide (Omniscan Pf Inj) 19 ml STK-MED ONCE IVCONTRAST Last administered on 07/02/17 17:13; Start 07/02/17 at 17:13; Stop 07/02/17 at 17:14; Status DC Sodium Biphosphate/ Sodium Phosphate (Fleets Enema (Adult)) 133 ml ONCE ONCE RECTAL Last administered on 07/03/17 17:23; Start 07/03/17 at 17:00; Stop at 17:01; Status DC Furosemide (Lasix Inj) 40 mg NOW ONCE IV PUSH Last administered on 07/03/17 19:20; Start 07/03/17 at 19:15; Stop 07/03/17 at 19:16; Status DC Dexmedetomidine HCl 200 mcg/ Sodium Chloride 52 ml @ 5 mls/hr TITRATE PRN IV SEDATION Last administered on 07/04/17 05:45; Start 07/03/17 at 22:00 Acetylcysteine (Mucomyst 10% Neb) 2 ml Q6HR NEB NEB Last administered on 04:02; Start 07/04/17 at 04:00 A/P Assessment and Plan A/P EtOH withdrawal Alcohol dependence History of depression/anxiety Currently on [facility] protocol. Chlordiazepoxide 50 mg by mouth every 6 hours scheduled on Precedex drip Thiamine 100 mg daily, folate 1 mg daily multivitamin 1 tablet daily Seizure precautions CT brain 07/01 revealed no acute intracranial findings. 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 Likely esophagitis/Menendez' s not biopsied. continue PPI continue Lactulose and Xifaxan. CT abdomen/pelvis revealed splenomegaly 19.3 cm. varices at the esophageal hiatus, gastric ligament and left upper quadrant. Renal splenic shunt appreciated. MRI abdomen showed Hepatomegaly and hepatic steatosis. No focal mass identified. Moderate splenomegaly. Small amount of ascites.Small bilateral pleural effusions. Liver workup including JOSE, ASMA, Hep profile all negative NPO for now rectal tube and NG tube in place GI following. acute hypoxemic respiratory failure due Pneumonia - left upper lobe start with broad spectrum IV antibiotics repeat the blood cultures- obtain sputum culture consult pulmonary Atherosclerotic vascular disease Dyslipidemia Asymptomatic bradycardia Clonidine as needed for hypertension/EtOH withdrawal Tobaccoism History of asthma/reactive airway disease Nasal cannula to maintain saturations greater than equal to 92% Incentive spirometry while awake on nicotine patch Elevated TSH 6.7. History of gout Sliding-scale insulin Macrocytic anemia Thrombocytopenia chronic likely secondary to underlying EtOH /cirrhotic liver disease- Leukocytosis Monitor CBC/coags. No signs of hemolysis/consumption thrombocytopenia. This appears to be a chronic condition Right ankle pain X-ray right ankle rule out fracture-Soft tissue mass noted to be fluid filled on ultrasound 09/10/2012. No acute fracture PT evaluate and treat Hypokalemia - Electrolyte replacement per protocol Prophylaxis - GI - pantoprazole - DVT - SCD/holding pharmacological prophylaxis in light of thrombocytopenia patient is ill-looking/ will keep in ICU for close monitoring. 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 d/w the RN and . Tyson Boyd MD Jul 04, 2017 08:26
[2017-07-04] MEDS ORDERED: VANCOMYCIN INJ 1,000 MG in SODIUM CHLOR 0.9% 250 ML INJ 250 ML IV ONE (08:30)
[2017-07-04] MEDS ORDERED: Vancomycin Consult Pharmacy 1 EA OTHER SCH (08:30)
[2017-07-04] MEDS ORDERED: SODIUM CHLOR 0.45% 1000 ML INJ 1,000 ML IV SCH (08:30)
[2017-07-04] MEDS: guaiFENesin E.R. 600 MG TAB PO SCH ×2 (09:00→20:38)
[2017-07-04] MEDS: REMOVE OLD PATCH T-DERMAL SCH (09:00)
[2017-07-04] MEDS: LACTULOSE SYRUP 20 GM/30 ML CUP PO SCH ×2 (10:06→20:37)
[2017-07-04] MEDS: NICOTINE 14 MG/24 HR PATCH T-DERMAL SCH (10:07)
[2017-07-04] MEDS: PIPERACIL-TAZO 3.375 GM PREMIX 50 ML IV SCH ×3 (10:07→23:06)
[2017-07-04] MEDS: DOCUSATE SODIUM 50 MG/SENNA 8.6 MG TAB PO SCH ×2 (10:07→20:38)
[2017-07-04] MEDS: MULTIVITAMINS/MINERALS THERAPEUTIC TAB PO SCH (10:08)
[2017-07-04] MEDS: SODIUM CHLORIDE 0.9% FLUSH 10 ML FLUSH IV FLUSH SCH ×2 (10:08→20:39)
[2017-07-04] MEDS: THIAMINE HCL 100 MG TAB PO SCH (10:08)
[2017-07-04] MEDS: RIFAXIMIN 550 MG TAB PO SCH ×2 (10:08→20:41)
[2017-07-04] MEDS: POLYETHYLENE GLYCOL 17 GM PKG PO SCH (10:08)
[2017-07-04] MEDS: PANTOPRAZOLE SODIUM 40 MG VIAL IV SCH ×2 (10:08→20:37)
[2017-07-04] MEDS: FOLIC ACID 1 MG TAB PO SCH (10:08)
--- NOTE | 2017-07-04 10:45 | HHI.GIFU ---
Subjective Remarks Followup for GI bleed and ileus. Reports diffuse abdominal tenderness. No active bleeding noted. NG tube and rectal tube in place. (Jihan Velasquez) Objective Vitals I&O Vital Signs Date Time Temp Pulse Resp B/P (MAP) Pulse Ox O2 Delivery O2 Flow Rate FiO2 07/04/17 09:48 95 Nasal Cannula 2.00 07/04/17 06:00 84 07/04/17 04:00 98.6 91 19 144/79 (100) 99 07/04/17 04:00 91 07/04/17 03:00 89 31 122/75 (91) 100 07/04/17 02:00 88 07/04/17 02:00 88 20 124/76 (92) 100 07/04/17 01:00 96 21 126/76 (93) 100 07/04/17 00:00 98.6 102 29 134/85 (101) 90 07/04/17 00:00 102 07/03/17 23:00 110 25 141/90 (107) 95 07/03/17 22:30 96 Simple Mask 10.00 07/03/17 22:12 94 Nasal Cannula 6.00 07/03/17 22:00 128 07/03/17 22:00 128 36 147/90 (109) 92 07/03/17 21:00 116 17 161/92 (115) 97 07/03/17 20:00 99 07/03/17 20:00 98.0 99 30 152/89 (110) 100 07/03/17 18:00 97 07/03/17 16:00 98.3 96 38 156/94 (114) 94 07/03/17 16:00 96 07/03/17 14:00 90 07/03/17 12:00 93 07/03/17 12:00 98.3 93 25 137/80 (99) 92 I/O 07/03/17 07/03/17 07/03/17 07/04/17 07/04/17 07/04/17 07:00 15:00 23:00 07:00 15:00 23:00 Intake Total 1000 ml 550 ml Output Total 300 ml 800 ml 1125 ml Balance 700 ml -250 ml -1125 ml Intake Oral 350 ml IV Total 1000 ml 200 ml Output Urine Total 300 ml 400 ml 900 ml Gastric Drainage Total 350 ml 225 ml Emesis 50 ml # Bowel Movements 1 0 Laboratory Laboratory Tests Test 07/03/17 11:50 07/03/17 21:30 07/04/17 05:27 White Blood Count 6.5 6.1 Red Blood Count 3.06 3.18 Hemoglobin 10.6 11.2 Hematocrit 32.6 34.1 Mean Corpuscular Volume 106.7 107.3 Mean Corpuscular Hemoglobin 34.7 35.2 Mean Corpuscular Hemoglobin Concent 32.5 32.8 Red Cell Distribution Width 17.8 17.3 Platelet Count 104 123 Mean Platelet Volume 7.9 8.1 Neutrophils (%) (Auto) 75.5 73.0 Lymphocytes (%) (Auto) 12.7 10.7 Monocytes (%) (Auto) 9.4 13.1 Eosinophils (%) (Auto) 1.9 2.8 Basophils (%) (Auto) 0.5 0.4 Neutrophils # (Auto) 4.9 4.5 Lymphocytes # (Auto) 0.8 0.7 Monocytes # (Auto) 0.6 0.8 Eosinophils # (Auto) 0.1 0.2 Basophils # (Auto) 0.0 0.0 CBC Comment DIFF FINAL DIFF FINAL Differential Comment Blood Urea Nitrogen 5 7 Creatinine 0.59 0.79 Random Glucose 115 112 Total Protein 6.8 7.3 Albumin 2.6 2.8 Calcium Level 7.5 8.1 Phosphorus Level 2.5 Magnesium Level 2.1 Alkaline Phosphatase 88 96 Aspartate Amino Transf (AST/SGOT) 67 62 Alanine Aminotransferase (ALT/SGPT) 23 22 Total Bilirubin 4.5 5.3 Sodium Level 138 138 Potassium Level 3.1 3.4 Chloride Level 108 105 Carbon Dioxide Level 23.3 22.3 Anion Gap 7 11 Estimat Glomerular Filtration Rate 145 104 Blood Gas Puncture Site RT RADIAL Blood Gas Patient Temperature 98.6 Blood Gas HCO3 20 Blood Gas Base Excess -4.5 Blood Gas Oxygen Saturation 89 Arterial Blood pH 7.36 Arterial Blood Partial Pressure CO2 36 Arterial Blood Partial Pressure O2 67 Arterial Blood Oxygen Content 15.0 Arterial Blood Carboxyhemoglobin 2.7 Arterial Blood Methemoglobin 0.9 Blood Gas Hemoglobin 12.0 Oxygen Delivery Device NASAL CANNULA Blood Gas Liter Flow 4 Blood Gas Inspired Oxygen 36 Date/Time Source Procedure Growth Status 06/30/17 07:44 Blood Peripheral Aerobic Blood Culture - Preliminary NO GROWTH IN 3 DAYS Resulted 06/30/17 07:44 Blood Peripheral Anaerobic Blood Culture - Preliminary NO GROWTH IN 3 DAYS Resulted Imaging Last Impressions Chest X-Ray 07/03/17 0000 Signed Impressions: Service Date/Time: Monday, July 03, 2017 22:11 - CONCLUSION: Early/mild left upper lobe pneumonia suspected. Nasogastric tube courses into the stomach. Nikko Owen MD Abdomen X-Ray 07/02/17 0000 Signed Impressions: Service Date/Time: June 09:22 - CONCLUSION: Mildly distended air-filled small bowel and colon. Likely represents ileus. No significant interval change from CT of 06/29/2017. Wilbert Howe MD Abdomen MRI 07/02/17 0000 Signed Impressions: Service Date/Time: June 16:34 - CONCLUSION: 1. Hepatomegaly and hepatic steatosis. No focal mass identified. 2. Moderate splenomegaly. 3. Small amount of ascites. 4. Small bilateral pleural effusions. Wilbert Howe MD Ankle X-Ray 07/01/17 0000 Signed Impressions: Service Date/Time: Saturday, July 01, 2017 10:22 - CONCLUSION: Soft tissue mass noted to be fluid filled on ultrasound 09/10/2012. Colten Nelson MD FACR Head CT 06/30/17 0000 Signed Impressions: Service Date/Time: Saturday, July 01, 2017 02:24 - CONCLUSION: 1. No acute intracranial abnormalities. Previous fixation left maxillary sinus. Albert Walden MD Cervical Spine CT 06/30/17 0000 Signed Impressions: Service Date/Time: Saturday, July 01, 2017 02:24 - CONCLUSION: Normal examination for a patient of this age. Albert Walden MD Abdomen/Pelvis CT 06/29/17 0000 Signed Impressions: Service Date/Time: Thursday, June 29, 2017 12:52 - CONCLUSION: 1. Hepatosplenomegaly and varices noted as above. 2. Atherosclerosis. 3. Abnormal diffuse heterogeneous appearance of the liver which may be related to either marked hepatic steatosis in an inhomogeneous fashion versus steatosis and underlying diffuse liver masses. An MRI of the abdomen with and without contrast may be helpful for further evaluation of this finding. Navjot Chirinos MD Physical Exam HEENT: Normocephalic; atraumatic; no jaundice. NGT to LIWS with green bilious drainage. CHEST: CTA CARDIAC: RRR ABDOMEN: Firm, significant abdominal distention, diffuse tenderness; bowel sounds are hypoactive. Rectal tube in place with small amount of liquid brown stool. EXTREMITIES: No clubbing, cyanosis, or edema. SKIN: Normal; no rash; no jaundice. 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 Pt reported intermittent nausea/vomiting with dark emesis and occasional red blood and intermittent dark stools. Not actively bleeding. Of note, does report that he has had nose bleeds x 2 days. However, he does have evidence of liver cirrhosis and varices on CT imaging. EGD/Colonoscopy (12/24/15)---> There was a 5 cm segment of suspected Menendez's esophagus found in the distal esophagus, multiple biopsies were performed, there was erythematous gastritis in the entire examined stomach; multiple biopsies were performed, normal duodenal mucosa in the bulb and second portion of the duodenum, retroflexion was performed and was normal; the colon mucosa was otherwise normal, retroflexed views revealed no abnormalities. Pathology with gastric antral mucosal biopsies with histopathologic features consistent with chemical gastropathy, as may bee seen with bile reflux, non-steroidal anti-inflammatory drugs or other drug induced disease negative for intestinal metaplasia and dysplasia, farhat stain negative for helicobacter. GE mucosal biopsies with chronic inflammatory gastric changes consistent with reflux exhibiting extensive intestinal metaplasia, negative for dysplasia. 1. 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 Gastropathy and mild gastritis 3. Moderate duodenitis 4. No active bleeding and no sign of old bleeding 5. Retroflexed views revealed no abnormalities PPI. No active bleeding. HH 10.6/32.6 (07/03), HH 11.2/34.1 (07/04), - Ileus with worsening abdominal distention, pain. CT scan abdomen and pelvis ( 06/29/17)----> Hepatosplenomegaly and varices noted as above. Atherosclerosis. Abnormal diffuse heterogeneous appearance of the liver which may be related to either marked hepatic steatosis in an inhomogeneous fashion versus steatosis and underlying diffuse liver masses. An MRI of the abdomen with and without contrast may be helpful for further evaluation of this finding. Pt states this pain began after a hernia repair in July of 2016 and is intermittent at times, but usually more constant. KUB ( 07/02/17)---> Mildly distended air-filled small bowel and colon. Likely represents ijleus. No significant interval change from CT of 06/29/17. Was started on Reglan, Miralax, but no improvement. Very distended today. NPO. S/P fleet enema. Rectal tube in place with small amount of liquid brown stool. NGT in place with green bilious material. KUB (07/04/17)--1. Stable gaseous distention of bowel since July 02 comparison. - Liver cirrhosis/Elevated LFTs. Pt reports that he has been told that his liver was enlarged, but never told that he had liver cirrhosis. He continues to drink ETOH, stating [address] has findings of varcies, he has thrombocytopenia, coagulopathy, hypoalbuminemia, all of which support a dx of liver cirrhosis. MRI (07/02/17)---> hepatomegaly and hepatic steatosis, no focal mass identified. Moderate splenomegaly, small amount of of ascites. Small bilateral pleural effusion. Will check liver workup to r/o other underlying liver disease- JOSE negative, AMA p, ASMA negative, AFP 4.6. ALpha 1 Antitrypsin 221, Ceruloplasmin pending, Ferritin 94, Iron saturation 14.0%. Hepatitis profile neg. Suspect this is related to ETOH. DF 6.0. MELD 13. - Menendez's Esopahgus, GERD. Takes ranitidine as needed at home, has daily symptoms. EGD as above. PPI - Thrombocytopenia, Coagulopathy. Likely related to cirrhosis. - Anemia, macrocytic. HH stable, 10.6/32.6 (07/03), 11.2/34.1 (07/04). Folate 17.2, B12 1711. - Hepatic encephalopathy, slight shaking, poor historian. Ammonia 33 (07/02) - ETOH abuse. DT precautions per attending. - Asthma, Depression, Hyperlipidemia. Per attending. PLAN: - NPO - Continue NGT to LIWS - Continue rectal tube - Cont. Reglan - Cont.Miralax - Cont. Protonix - Cont. Lactulose - Cont. Xifaxan - Await Ceruloplasmin, AMA - Monitor labs - Notify GI of active bleeding - Supportive care - Further recommendations to follow based on results of above Patient seen and examined by Dr. Lott and myself and this note is written on his behalf (Jihan Velasquez) Plan Patient was seen and examined, agree with above-noted, still distended abdomen, rectal tube producing stool NG tube in place, we'll do a KUB in the morning (Vidya Lott MD) Jihan Velasquez Jul 04, 2017 10:45 Vidya Lott MD Jul 05, 2017 10:45
[2017-07-04] MEDS: VANCOMYCIN INJ 1,700 MG in SODIUM CHLORID 0.9% 500 ML INJ 500 ML IV SCH ×2 (12:15→23:06)
[2017-07-04 13:52] LABS: CERULOPLASMIN 37 mg/dL (18-36)
[2017-07-04] MEDS ORDERED: FUROSEMIDE 40 MG/4 ML VIAL ONE (15:19)
[2017-07-04] MEDS ORDERED: FUROSEMIDE 40 MG/4 ML VIAL IV PUSH ONE (15:30)
[2017-07-04] MEDS: metroNIDAZOLE 500 MG INJ 100 ML IV SCH ×2 (15:36→23:06)
[2017-07-04] MEDS ORDERED: DILTIAZEM HCL 25 MG/5 ML VIAL IV ONE ×2 (16:00→16:15)
[2017-07-04] MEDS ORDERED: DILTIAZEM HCL 25 MG/5 ML VIAL ONE (16:00)
--- NOTE | 2017-07-04 16:02 | RADRPT ---
EXAM DATE/TIME: 07/04/2017 15:43 [place] COMPARISON: CHEST SINGLE AP, July 03, 2017, 22:11. INDICATIONS : Shortness of breath. MEDICAL HISTORY : Esophageal carcinoma. SURGICAL HISTORY : None. ENCOUNTER: Subsequent ACUITY: 2 days PAIN SCORE: 0/10 LOCATION: Bilateral chest FINDINGS: There is an NGT in the stomach. Lungs are hypoaerated with mild bibasilar airspace disease. Central p erihilar upper lobe patchy opacities are again noted. Cardiomediastinal contours are stable. Remainde r of the exam is unchanged. CONCLUSION: 1. Stable subtle central perihilar upper lobe patchy opacities which may reflect developing infection or aspiration. 2. Minimal bibasilar airspace disease, likely atelectasis. Bryson Downing MD on July 04, 2017 at 15:58 Board Certified Radiologist. This report was verified electronically.
--- NOTE | 2017-07-04 16:19 | HHI.CCPN ---
Subjective Remarks/Hospital Course The patient is a 51-year-old male with past medical history of Menendez's esophagus, gastric ulcers, esophageal varices and tobacco abuse. He presented to [facility] ED yesterday for evaluation of abdominal pain. In addition the patient reported melena and some hematemesis. He denied any associated symptoms of nausea, vomiting, shortness of breath, chest pain or any constitutional symptoms. He had a CT of the abdomen and pelvis on arrival which showed hepatosplenomegaly, varices and possible hepatic steatosis. The patient was initially admitted under hospitalist service and evaluated by GI service for possible GI bleed. The patient underwent upper endoscopy today which showed gastropathy and mild gastritis, moderate duodenitis with no signs of active bleeding. [place] [facility] [place] is likely going into D[place]. He was placed on Precedex drip for sedation. Critical Care Medicine was consulted for critical care management. His laboratory data today showed elevated ammonia level at 67. The patient was placed on CIWA protocol. He denies any chest pain, shortness of breath. Subjective 07/01: Afebrile. CT brain, CT C-spine negative early this AM. Currently on dexmedetomidine at 0.8 mics grams per kilogram per hour for sedation. No lorazepam given overnight. Currently in chlordiazepoxide 50 mg every 6 hours scheduled question however that was held as well due to the sedative effects of the dexmedetomidine. 07/02: Off Precedex since midnight. Alert oriented 3. Complaints of abdominal pain and distention. Bedside ultrasound does not show any significant ascites. MRI was recommended for liver mass evaluation-we'll request MRI abdomen. D/W Yoli Koenig 07/03 No events overnight. Awake and alert. MRI abdomen showed Hepatomegaly and hepatic steatosis. No focal mass identified. Moderate splenomegaly. 3. Small amount of ascites. Small bilateral pleural effusions. 07/04 Patient was in resp distress , tachycardic, tachypneic and was subsequently placed on BIPAP 15/8 with 50% FIO2 with sats 94%. Afebrile. ABG on 50% VM showed acute hypoxemic and hypercapnic resp failure. Lasix 40mg IV x1 was given. Objective Vital Signs Date Time Temp Pulse Resp B/P (MAP) Pulse Ox O2 Delivery O2 Flow Rate FiO2 07/04/17 14:00 124 07/04/17 12:00 98.5 38 158/87 (110) 93 07/04/17 09:48 Nasal Cannula 2.00 07/03/17 08:10 21 Intake and Output 07/04/17 07/04/17 07/05/17 08:00 16:00 00:00 Intake Total 50 ml Output Total 1125 ml Balance -1125 ml 50 ml Result Diagram: 07/04/17 0527 07/04/17 0527 Other Results Laboratory Tests Test 07/03/17 21:30 07/04/17 05:27 07/04/17 15:09 Blood Gas Puncture Site RT RADIAL RT RADIAL Blood Gas Patient Temperature 98.6 98.6 Blood Gas HCO3 20 mmol/L 22 mmol/L Blood Gas Base Excess -4.5 mmol/L -4.0 mmol/L Blood Gas Oxygen Saturation 89 % 83 % Arterial Blood pH 7.36 7.28 Arterial Blood Partial Pressure CO2 36 mmHg 47 mmHg Arterial Blood Partial Pressure O2 67 mmHg 62 mmHg Arterial Blood Oxygen Content 15.0 Vol % 13.3 Vol % Arterial Blood Carboxyhemoglobin 2.7 % 2.4 % Arterial Blood Methemoglobin 0.9 % 1.1 % Blood Gas Hemoglobin 12.0 G/DL 11.3 G/DL Oxygen Delivery Device NASAL CANNULA VENTI MASK Blood Gas Liter Flow 4 L/M Blood Gas Inspired Oxygen 36 % 50 % White Blood Count 6.1 TH/MM3 Red Blood Count 3.18 MIL/MM3 Hemoglobin 11.2 GM/DL Hematocrit 34.1 % Mean Corpuscular Volume 107.3 FL Mean Corpuscular Hemoglobin 35.2 PG Mean Corpuscular Hemoglobin Concent 32.8 % Red Cell Distribution Width 17.3 % Platelet Count 123 TH/MM3 Mean Platelet Volume 8.1 FL Neutrophils (%) (Auto) 73.0 % Lymphocytes (%) (Auto) 10.7 % Monocytes (%) (Auto) 13.1 % Eosinophils (%) (Auto) 2.8 % Basophils (%) (Auto) 0.4 % Neutrophils # (Auto) 4.5 TH/MM3 Lymphocytes # (Auto) 0.7 TH/MM3 Monocytes # (Auto) 0.8 TH/MM3 Eosinophils # (Auto) 0.2 TH/MM3 Basophils # (Auto) 0.0 TH/MM3 CBC Comment DIFF FINAL Differential Comment Blood Urea Nitrogen 7 MG/DL Creatinine 0.79 MG/DL Random Glucose 112 MG/DL Total Protein 7.3 GM/DL Albumin 2.8 GM/DL Calcium Level 8.1 MG/DL Alkaline Phosphatase 96 U/L Aspartate Amino Transf (AST/SGOT) 62 U/L Alanine Aminotransferase (ALT/SGPT) 22 U/L Total Bilirubin 5.3 MG/DL Sodium Level 138 MEQ/L Potassium Level 3.4 MEQ/L Chloride Level 105 MEQ/L Carbon Dioxide Level 22.3 MEQ/L Anion Gap 11 MEQ/L Estimat Glomerular Filtration Rate 104 ML/MIN Imaging Last Impressions Abdomen X-Ray 07/04/17 0600 Signed Impressions: Service Date/Time: Tuesday, July 04, 2017 05:30 - CONCLUSION: 1. Stable gaseous distention of bowel since July 02 comparison. Albert Walden MD Chest X-Ray 07/03/17 0000 Signed Impressions: Service Date/Time: Monday, July 03, 2017 22:11 - CONCLUSION: Early/mild left upper lobe pneumonia suspected. Nasogastric tube courses into the stomach. Nikko Owen MD Abdomen MRI 07/02/17 0000 Signed Impressions: Service Date/Time: June 16:34 - CONCLUSION: 1. Hepatomegaly and hepatic steatosis. No focal mass identified. 2. Moderate splenomegaly. 3. Small amount of ascites. 4. Small bilateral pleural effusions. Wilbert Howe MD Ankle X-Ray 07/01/17 0000 Signed Impressions: Service Date/Time: Saturday, July 01, 2017 10:22 - CONCLUSION: Soft tissue mass noted to be fluid filled on ultrasound 09/10/2012. Colten Nelson MD FACR Head CT 06/30/17 0000 Signed Impressions: Service Date/Time: Saturday, July 01, 2017 02:24 - CONCLUSION: 1. No acute intracranial abnormalities. Previous fixation left maxillary sinus. Albert Walden MD Cervical Spine CT 06/30/17 0000 Signed Impressions: Service Date/Time: Saturday, July 01, 2017 02:24 - CONCLUSION: Normal examination for a patient of this age. Albert Walden MD Abdomen/Pelvis CT 06/29/17 0000 Signed Impressions: Service Date/Time: Thursday, June 29, 2017 12:52 - CONCLUSION: 1. Hepatosplenomegaly and varices noted as above. 2. Atherosclerosis. 3. Abnormal diffuse heterogeneous appearance of the liver which may be related to either marked hepatic steatosis in an inhomogeneous fashion versus steatosis and underlying diffuse liver masses. An MRI of the abdomen with and without contrast may be helpful for further evaluation of this finding. Navjot Chirinos MD Objective Remarks GENERAL: Patient is 51 yo on BIPAP in mild-mod resp distress SKIN: Warm and dry. HEAD: Normocephalic. EYES: No scleral icterus. No injection or drainage. NECK: Supple, trachea midline. No JVD or lymphadenopathy. CARDIOVASCULAR:Tachycardic without murmurs, gallops, or rubs. RESPIRATORY: Breath sounds equal bilaterally. No accessory muscle use. GASTROINTESTINAL: Abdomen soft, non-tender,Distended. MUSCULOSKELETAL: No cyanosis, or edema. Neuro: awake. Procedures 06/30/17 EGD A/P Assessment and Plan Neuro/Psych: EtOH withdrawal Alcohol dependence History of depression/anxiety Currently on CIWA protocol. decrease Librium 25mg Q12 Continue Thiamine 100mg daily CT brain 07/01 revealed no acute intracranial findings. Patient with history of right zygomatic/maxillary sinus surgery 2015 CT C-spine 07/01 negative findings Tramadol 50-100 mg every 4 hours as needed pain CV: Atherosclerotic vascular disease Dyslipidemia Hypertension Monitor HR and BP keep MAP>65mmHg Place on Clonidine 0.2mg Q8 for BP control Resp: Possible Aspiration Tobaccoism History of asthma/reactive airway disease Continue with oxygen keep sat> 92% Bronchodilators NIPPV for resp. distress. Will check ABG on BIPAP if no improvements will proceed with intubation and mechanical ventilation D/c IVF, s/p Lasix 40mg x1 Currently on nicotine patch at 14 mg daily. GI: History esophageal cancer? Menendez's esophagus Gastroesophageal reflux disease Gout Gastritis/duodenitis Splenomegaly Constipation/chronic Hyperammonia Keep NPO for now EGD 06/30 by GI revealed mild gastritis, duodenitis. Likely esophagitis/Menendez' s not biopsied. Pantoprazole 40 mg IV daily for GI prophylaxis Lactulose 30 cc twice a day and Xifaxan 500 mg by mouth twice a day for hyperammonia. Recheck ammonia level in a.m. CT abdomen/pelvis revealed splenomegaly 19.3 cm. varices at the esophageal hiatus, gastric ligament and left upper quadrant. Renal splenic shunt appreciated. MRI abdomen showed Hepatomegaly and hepatic steatosis. No focal mass identified. Moderate splenomegaly. Small amount of ascites.Small bilateral pleural effusions. Liver workup including JOSE, ASMA, Hep profile all negative Endo: Elevated TSH 6.7. History of gout Sliding-scale insulin Novulin R every 4 hrs for maintain euglycemia Renal: Monitor renal function, I/O's, electrolytes replacement per protocol. Will need K replacement today Heme: Macrocytic anemia Thrombocytopenia chronic likely secondary to underlying EtOH /cirrhotic liver disease- Monitor CBC/coags in AM. No signs of hemolysis/consumption thrombocytopenia. This appears to be a chronic condition ID: Continue with abx ( Vanco, Zosyn) Monitor for signs of infections ( Fever, WBC) Follow up on Blood and sputum cx from today. Check strep pneumonia and Legionella urinary Ag 06/30 - blood cultures 2 -ve to date MSK: Right ankle pain X-ray right ankle rule out fracture-Soft tissue mass noted to be fluid filled on ultrasound 09/10/2012. No acute fracture PT evaluate and treat Access - Utilize peripheral IV. Prophylaxis - GI - pantoprazole - DVT - SCD/holding pharmacological prophylaxis in light of thrombocytopenia Level 3 Vanesa Stinson MD Jul 04, 2017 16:19
[2017-07-04] MEDS: POTASSIUM CHLOR 20 MEQ PREMIX 100 ML IV PRN ×2 (16:32→18:26)
[2017-07-04] MEDS: traMADol HCL 50 MG TAB PO PRN ×3 (20:00→23:14)
[2017-07-04] MEDS ORDERED: RESP: ALBUTEROL 2.5 MG/IPRATROPIUM 0.5 MG NEB (SCH) NEB (20:00)
[2017-07-04] MEDS: cloNIDine HCL 0.2 MG TAB PO SCH (20:38)
[2017-07-05] VITALS (16 sets, daily range): BP systolic 128–145; BP diastolic 68–95; PULSE 87–109; RESP 20–40; TEMP 98.4–99.3; O2SAT 96–100
[2017-07-05] MEDS: RESP: ALBUTEROL 2.5 MG/IPRATROPIUM 0.5 MG NEB (SCH) NEB ×5 (00:20→14:31)
[2017-07-05] MEDS: INSULIN NovoLIN REGULAR SUPPLEMENTAL SCALE SQ SCH ×6 (02:00→20:10)
[2017-07-05] MEDS: chlordiazePOXIDE 25 MG CAP PO SCH ×2 (03:10→14:50)
[2017-07-05] MEDS: traMADol HCL 50 MG TAB PO PRN ×4 (03:11→20:12)
[2017-07-05 03:50] LABS: MITOCHONDRIAL ABS LESS THAN 20.0 U (<=20.0)
[2017-07-05] MEDS: RESP: ALBUTEROL 2.5 MG/IPRATROPIUM 0.5 MG NEB (PRN) NEB ×2 (03:55→19:25)
[2017-07-05] MEDS: RESP: ACETYLCYSTEINE 10% 30 ML NEB NEB SCH ×2 (03:55→07:44)
[2017-07-05] MEDS: cloNIDine HCL 0.2 MG TAB PO SCH ×3 (04:29→20:12)
[2017-07-05] MEDS: METOCLOPRAMIDE HCL 10 MG/2 ML VIAL IV PUSH SCH ×3 (04:29→20:11)
[2017-07-05 06:15] LABS: AUTOMATED NEUTROPHIL # 2.4 TH/MM3 (1.8-7.7); BASOPHIL % 1.2 % (0.0-2.0); EOSINOPHIL # 0.1 TH/MM3 (0-0.4); EOSINOPHIL % 3.5 % (0.0-4.0); HEMATOCRIT 34.3 % (39.0-51.0); HEMOGLOBIN 11.3 GM/DL (13.0-17.0); LYMPH % 19.2 % (9.0-44.0); LYMPHOCYTE # 0.8 TH/MM3 (1.0-4.8); MEAN CORPUSCULAR HEMOGLOBIN 35.3 PG (27.0-34.0); MEAN PLATELET VOLUME 8.5 FL (7.0-11.0); MONO % 18.7 % (0.0-8.0); MONOCYTE # 0.8 TH/MM3 (0-0.9); NEUT % 57.4 % (16.0-70.0); PLATELET COUNT 132 TH/MM3 (150-450); RED BLOOD COUNT 3.21 MIL/MM3 (4.50-5.90); RED CELL DISTRIBUTION WIDTH 17.5 % (11.6-17.2); WHITE BLOOD COUNT 4.1 TH/MM3 (4.0-11.0)
[2017-07-05 06:25] LABS: ALBUMIN 2.9 GM/DL (3.4-5.0); ALT (GPT) 21 U/L (12-78); AST (GOT) 54 U/L (15-37); BICARBONATE 23.5 MEQ/L (21.0-32.0); BLOOD UREA NITROGEN 13 MG/DL (7-18); CALCIUM 8.3 MG/DL (8.5-10.1); CHLORIDE 106 MEQ/L (98-107); CREATININE 0.89 MG/DL (0.60-1.30); GLOMERULAR FILTRATION RATE 90 ML/MIN (>89); GLUCOSE,RANDOM 108 MG/DL (74-106); MAGNESIUM 2.1 MG/DL (1.5-2.5); PHOSPHORUS 2.6 MG/DL (2.5-4.9); SODIUM (NA) 139 MEQ/L (136-145)
[2017-07-05 06:27] LABS: ALKALINE PHOSPHATASE 89 U/L (45-117); TOTAL BILIRUBIN ADULT 5.5 MG/DL (0.2-1.0); TOTAL PROTEIN 7.8 GM/DL (6.4-8.2)
[2017-07-05] MEDS: LACTULOSE SYRUP 20 GM/30 ML CUP PO SCH ×2 (08:09→20:11)
[2017-07-05] MEDS: RIFAXIMIN 550 MG TAB PO SCH ×2 (08:09→20:12)
[2017-07-05] MEDS: THIAMINE HCL 100 MG TAB PO SCH (08:09)
[2017-07-05] MEDS: guaiFENesin E.R. 600 MG TAB PO SCH ×2 (08:09→20:11)
[2017-07-05] MEDS: DOCUSATE SODIUM 50 MG/SENNA 8.6 MG TAB PO SCH ×2 (08:09→20:11)
[2017-07-05] MEDS: PANTOPRAZOLE SODIUM 40 MG VIAL IV SCH ×2 (08:10→20:11)
[2017-07-05] MEDS: metroNIDAZOLE 500 MG INJ 100 ML IV SCH ×3 (08:10→23:07)
[2017-07-05] MEDS: SODIUM CHLORIDE 0.9% FLUSH 10 ML FLUSH IV FLUSH SCH ×2 (08:10→20:11)
[2017-07-05] MEDS: POLYETHYLENE GLYCOL 17 GM PKG PO SCH (08:10)
[2017-07-05] MEDS: PIPERACIL-TAZO 3.375 GM PREMIX 50 ML IV SCH ×3 (08:10→23:07)
[2017-07-05] MEDS: LORazepam 2 MG/ML VIAL IV PUSH PRN ×3 (08:10→21:27)
[2017-07-05] MEDS: NICOTINE 14 MG/24 HR PATCH T-DERMAL SCH (08:11)
[2017-07-05] MEDS: REMOVE OLD PATCH T-DERMAL SCH (08:11)
[2017-07-05] MEDS: VANCOMYCIN INJ 1,700 MG in SODIUM CHLORID 0.9% 500 ML INJ 500 ML IV SCH ×2 (10:23→23:08)
--- NOTE | 2017-07-05 10:32 | HHI.CCPN ---
Subjective Remarks/Hospital Course The patient is a 51-year-old male with past medical history of Menendez's esophagus, gastric ulcers, esophageal varices and tobacco abuse. He presented to [facility] ED yesterday for evaluation of abdominal pain. In addition the patient reported melena and some hematemesis. He denied any associated symptoms of nausea, vomiting, shortness of breath, chest pain or any constitutional symptoms. He had a CT of the abdomen and pelvis on arrival which showed hepatosplenomegaly, varices and possible hepatic steatosis. The patient was initially admitted under hospitalist service and evaluated by GI service for possible GI bleed. The patient underwent upper endoscopy today which showed gastropathy and mild gastritis, moderate duodenitis with no signs of active bleeding. He was [place] [facility] patient is likely going into DTs. He was placed on Precedex drip for sedation. Critical Care Medicine was consulted for critical care management. His laboratory data today showed elevated ammonia level at 67. The patient was placed on CIWA protocol. He denies any chest pain, shortness of breath. Subjective 07/01: Afebrile. CT brain, CT C-spine negative early this AM. Currently on dexmedetomidine at 0.8 mics grams per kilogram per hour for sedation. No lorazepam given overnight. Currently in chlordiazepoxide 50 mg every 6 hours scheduled question however that was held as well due to the sedative effects of the dexmedetomidine. 07/02: Off Precedex since midnight. Alert oriented 3. Complaints of abdominal pain and distention. Bedside ultrasound does not show any significant ascites. MRI was recommended for liver mass evaluation-we'll request MRI abdomen. D/W Yoli Koenig 07/03 No events overnight. Awake and alert. MRI abdomen showed Hepatomegaly and hepatic steatosis. No focal mass identified. Moderate splenomegaly. 3. Small amount of ascites. Small bilateral pleural effusions. 07/04 Patient was in resp distress , tachycardic, tachypneic and was subsequently placed on BIPAP 19/05 with 50% FIO2 with sats 94%. Afebrile. ABG on 50% VM showed acute hypoxemic and hypercapnic resp failure. Lasix 40mg IV x1 was given. 07/05 Patient is off BIPAP, on 6L simple mask with good sats. Afebrile. Objective Vital Signs Date Time Temp Pulse Resp B/P (MAP) Pulse Ox O2 Delivery O2 Flow Rate FiO2 07/05/17 09:26 18 07/05/17 07:45 97 Simple Mask 6.00 07/05/17 06:00 96 07/05/17 04:42 40 07/05/17 04:00 99.0 128/72 (90) Intake and Output 07/05/17 07/05/17 07/06/17 08:00 16:00 00:00 Output Total 310 ml Balance -310 ml Result Diagram: 07/05/17 0516 07/05/17 0516 Other Results Laboratory Tests Test 07/04/17 15:09 07/04/17 16:48 07/05/17 05:16 Blood Gas Puncture Site RT RADIAL RT RADIAL Blood Gas Patient Temperature 98.6 98.6 Blood Gas HCO3 22 mmol/L 20 mmol/L Blood Gas Base Excess -4.0 mmol/L -4.2 mmol/L Blood Gas Oxygen Saturation 83 % 95 % Arterial Blood pH 7.28 7.39 Arterial Blood Partial Pressure CO2 47 mmHg 34 mmHg Arterial Blood Partial Pressure O2 62 mmHg 115 mmHg Arterial Blood Oxygen Content 13.3 Vol % 15.8 Vol % Arterial Blood Carboxyhemoglobin 2.4 % 2.4 % Arterial Blood Methemoglobin 1.1 % 1.0 % Blood Gas Hemoglobin 11.3 G/DL 11.6 G/DL Oxygen Delivery Device VENTI MASK BIPAP Blood Gas Inspired Oxygen 50 % 50 % Blood Gas Ventilator Setting IPAP+15/ EPAP+8 White Blood Count 4.1 TH/MM3 Red Blood Count 3.21 MIL/MM3 Hemoglobin 11.3 GM/DL Hematocrit 34.3 % Mean Corpuscular Volume 107.0 FL Mean Corpuscular Hemoglobin 35.3 PG Mean Corpuscular Hemoglobin Concent 33.0 % Red Cell Distribution Width 17.5 % Platelet Count 132 TH/MM3 Mean Platelet Volume 8.5 FL Neutrophils (%) (Auto) 57.4 % Lymphocytes (%) (Auto) 19.2 % Monocytes (%) (Auto) 18.7 % Eosinophils (%) (Auto) 3.5 % Basophils (%) (Auto) 1.2 % Neutrophils # (Auto) 2.4 TH/MM3 Lymphocytes # (Auto) 0.8 TH/MM3 Monocytes # (Auto) 0.8 TH/MM3 Eosinophils # (Auto) 0.1 TH/MM3 Basophils # (Auto) 0.0 TH/MM3 CBC Comment DIFF FINAL Differential Comment Blood Urea Nitrogen 13 MG/DL Creatinine 0.89 MG/DL Random Glucose 108 MG/DL Total Protein 7.8 GM/DL Albumin 2.9 GM/DL Calcium Level 8.3 MG/DL Phosphorus Level 2.6 MG/DL Magnesium Level 2.1 MG/DL Alkaline Phosphatase 89 U/L Aspartate Amino Transf (AST/SGOT) 54 U/L Alanine Aminotransferase (ALT/SGPT) 21 U/L Total Bilirubin 5.5 MG/DL Sodium Level 139 MEQ/L Potassium Level 3.7 MEQ/L Chloride Level 106 MEQ/L Carbon Dioxide Level 23.5 MEQ/L Anion Gap 10 MEQ/L Estimat Glomerular Filtration Rate 90 ML/MIN Imaging Last Impressions Abdomen X-Ray 07/04/17 0600 Signed Impressions: Service Date/Time: Tuesday, July 04, 2017 05:30 - CONCLUSION: 1. Stable gaseous distention of bowel since July 02 comparison. Albert Walden MD Chest X-Ray 07/04/17 0000 Signed Impressions: Service Date/Time: Tuesday, July 04, 2017 15:43 - CONCLUSION: 1. Stable subtle central perihilar upper lobe patchy opacities which may reflect developing infection or aspiration. 2. Minimal bibasilar airspace disease, likely atelectasis. Bryson Downing MD Abdomen MRI 07/02/17 0000 Signed Impressions: Service Date/Time: June 16:34 - CONCLUSION: 1. Hepatomegaly and hepatic steatosis. No focal mass identified. 2. Moderate splenomegaly. 3. Small amount of ascites. 4. Small bilateral pleural effusions. Wilbert Howe MD Ankle X-Ray 07/01/17 0000 Signed Impressions: Service Date/Time: Saturday, July 01, 2017 10:22 - CONCLUSION: Soft tissue mass noted to be fluid filled on ultrasound 09/10/2012. Colten Nelson MD FACR Head CT 06/30/17 0000 Signed Impressions: Service Date/Time: Saturday, July 01, 2017 02:24 - CONCLUSION: 1. No acute intracranial abnormalities. Previous fixation left maxillary sinus. Albert Walden MD Cervical Spine CT 06/30/17 0000 Signed Impressions: Service Date/Time: Saturday, July 01, 2017 02:24 - CONCLUSION: Normal examination for a patient of this age. Albert Walden MD Abdomen/Pelvis CT 06/29/17 0000 Signed Impressions: Service Date/Time: Thursday, June 29, 2017 12:52 - CONCLUSION: 1. Hepatosplenomegaly and varices noted as above. 2. Atherosclerosis. 3. Abnormal diffuse heterogeneous appearance of the liver which may be related to either marked hepatic steatosis in an inhomogeneous fashion versus steatosis and underlying diffuse liver masses. An MRI of the abdomen with and without contrast may be helpful for further evaluation of this finding. Navjot Chirinos MD Objective Remarks GENERAL: Patient is 51 yo lying in bed in NAD SKIN: Warm and dry. HEAD: Normocephalic. EYES: No scleral icterus. No injection or drainage. NECK: Supple, trachea midline. No JVD or lymphadenopathy. CARDIOVASCULAR:Tachycardic without murmurs, gallops, or rubs. RESPIRATORY: Breath sounds equal bilaterally. Few coarse BS GASTROINTESTINAL: Abdomen soft, non-tender,Distended. MUSCULOSKELETAL: No cyanosis, or edema. Neuro: awake. Procedures 06/30/17 EGD A/P Assessment and Plan Neuro/Psych: EtOH withdrawal Alcohol dependence History of depression/anxiety Currently on CICT protocol. Librium 25mg Q12 Continue Thiamine 100mg daily CT brain 07/01 revealed no acute intracranial findings. Patient with history of right zygomatic/maxillary sinus surgery 2015 CT C-spine 07/01 negative findings Tramadol 50-100 mg every 4 hours as needed pain CV: Atherosclerotic vascular disease Dyslipidemia Hypertension Monitor HR and BP keep MAP>65mmHg On Clonidine 0.2mg Q8 for BP control Resp: Possible Aspiration Tobaccoism History of asthma/reactive airway disease Continue with oxygen keep sat> 92% Bronchodilators NIPPV for resp. distress. Currently on nicotine patch at 14 mg daily. GI: History esophageal cancer? Menendez's esophagus Gastroesophageal reflux disease Gout Gastritis/duodenitis Splenomegaly Constipation/chronic Hyperammonia Keep NPO for now, GI is following EGD 06/30 by GI revealed mild gastritis, duodenitis. Likely esophagitis/Menendez' s not biopsied. Pantoprazole 40 mg IV daily for GI prophylaxis Lactulose 30 cc twice a day and Xifaxan 500 mg by mouth twice a day for hyperammonemia. CT abdomen/pelvis revealed splenomegaly 19.3 cm. varices at the esophageal hiatus, gastric ligament and left upper quadrant. Renal splenic shunt appreciated. MRI abdomen showed Hepatomegaly and hepatic steatosis. No focal mass identified. Moderate splenomegaly. Small amount of ascites.Small bilateral pleural effusions. Liver workup including JOSE, ASMA, Hep profile all negative Endo: Elevated TSH 6.7. History of gout Sliding-scale insulin Novulin R every 4 hrs for maintain euglycemia Renal: Monitor renal function, I/O's, electrolytes replacement per protocol. Diurese with Bumex 1mg x1 Heme: Macrocytic anemia Thrombocytopenia chronic likely secondary to underlying EtOH /cirrhotic liver disease-(improving) Monitor CBC/coags in AM. No signs of hemolysis/consumption thrombocytopenia. This appears to be a chronic condition ID: Continue with abx ( Vanco, Zosyn) Monitor for signs of infections ( Fever, WBC) Follow up on Blood and sputum cx 07/04: NGTD , check CXR strep pneumonia and Legionella urinary Ag negative 06/30 - blood cultures 2 -ve to date MSK: Right ankle pain X-ray right ankle rule out fracture-Soft tissue mass noted to be fluid filled on ultrasound 09/10/2012. No acute fracture PT evaluate and treat Access - Utilize peripheral IV. Prophylaxis - GI - pantoprazole - DVT - SCD/holding pharmacological prophylaxis in light of thrombocytopenia Level 3 Vanesa Stinson MD Jul 05, 2017 10:32
--- NOTE | 2017-07-05 11:24 | RADRPT ---
EXAM DATE/TIME: 07/05/2017 11:05 [place] COMPARISON: CHEST SINGLE AP, July 04, 2017, 15:43. INDICATIONS : Short of breath. MEDICAL HISTORY : Esophageal carcinoma. SURGICAL HISTORY : None. ENCOUNTER: Subsequent ACUITY: 1 week PAIN SCORE: Non-responsive. LOCATION: Bilateral chest FINDINGS: A single view of the chest demonstrates the lungs to be symmetrically aerated without evidence of mas s, infiltrate or effusion. The cardiomediastinal contours are unremarkable. Osseous structures are intact. CONCLUSION: 1. No acute cardiopulmonary findings. 2. NG tube in satisfactory position. Franc Nelson MD on July 05, 2017 at 11:22 Board Certified Radiologist. This report was verified electronically.
[2017-07-05] MEDS ORDERED: BUMETANIDE INJ 1 MG/4 ML VIAL IV PUSH ONE (11:30)
--- NOTE | 2017-07-05 16:23 | HHI.GIFU ---
Subjective Remarks Resting in bed in mild respiratory distress. Confused, restless. Pulled NGT out. No n/v. Rectal tube with liquid stool. (Yoli Koenig) Objective Vitals I&O Vital Signs Date Time Temp Pulse Resp B/P (MAP) Pulse Ox O2 Delivery O2 Flow Rate FiO2 07/05/17 09:26 18 07/05/17 08:00 98.9 100 40 135/77 (96) 99 07/05/17 07:45 97 Simple Mask 6.00 07/05/17 07:00 97 Nasal Cannula 6.00 07/05/17 06:00 96 07/05/17 04:42 98 40 07/05/17 04:00 99.0 93 26 128/72 (90) 100 07/05/17 04:00 93 07/05/17 02:00 92 07/05/17 01:29 98 40 07/05/17 00:00 93 07/05/17 00:00 99.3 93 24 130/78 (95) 100 07/04/17 22:33 100 40 07/04/17 22:00 96 07/04/17 20:00 99.5 92 22 126/75 (92) 99 07/04/17 20:00 92 07/04/17 19:00 96 Bi-Pap 40 07/04/17 18:00 97 07/04/17 16:20 96 Bi-Pap 50 I/O 07/04/17 07/04/17 07/04/17 07/05/17 07/05/17 07/05/17 07:00 15:00 23:00 07:00 15:00 23:00 Intake Total 567 ml 500 ml Output Total 1125 ml 1200 ml 310 ml Balance -1125 ml 567 ml -700 ml -310 ml IV Total 567 ml 500 ml Output Urine Total 900 ml 1000 ml 300 ml Stool Total 200 ml 10 ml Gastric Drainage Total 225 ml Laboratory Laboratory Tests Test 07/04/17 16:48 07/05/17 05:16 Blood Gas Puncture Site RT RADIAL Blood Gas Patient Temperature 98.6 Blood Gas HCO3 20 Blood Gas Base Excess -4.2 Blood Gas Oxygen Saturation 95 Arterial Blood pH 7.39 Arterial Blood Partial Pressure CO2 34 Arterial Blood Partial Pressure O2 115 Arterial Blood Oxygen Content 15.8 Arterial Blood Carboxyhemoglobin 2.4 Arterial Blood Methemoglobin 1.0 Blood Gas Hemoglobin 11.6 Oxygen Delivery Device BIPAP Blood Gas Ventilator Setting IPAP+15/ EPAP+8 Blood Gas Inspired Oxygen 50 White Blood Count 4.1 Red Blood Count 3.21 Hemoglobin 11.3 Hematocrit 34.3 Mean Corpuscular Volume 107.0 Mean Corpuscular Hemoglobin 35.3 Mean Corpuscular Hemoglobin Concent 33.0 Red Cell Distribution Width 17.5 Platelet Count 132 Mean Platelet Volume 8.5 Neutrophils (%) (Auto) 57.4 Lymphocytes (%) (Auto) 19.2 Monocytes (%) (Auto) 18.7 Eosinophils (%) (Auto) 3.5 Basophils (%) (Auto) 1.2 Neutrophils # (Auto) 2.4 Lymphocytes # (Auto) 0.8 Monocytes # (Auto) 0.8 Eosinophils # (Auto) 0.1 Basophils # (Auto) 0.0 CBC Comment DIFF FINAL Differential Comment Blood Urea Nitrogen 13 Creatinine 0.89 Random Glucose 108 Total Protein 7.8 Albumin 2.9 Calcium Level 8.3 Phosphorus Level 2.6 Magnesium Level 2.1 Alkaline Phosphatase 89 Aspartate Amino Transf (AST/SGOT) 54 Alanine Aminotransferase (ALT/SGPT) 21 Total Bilirubin 5.5 Sodium Level 139 Potassium Level 3.7 Chloride Level 106 Carbon Dioxide Level 23.5 Anion Gap 10 Estimat Glomerular Filtration Rate 90 Date/Time Source Procedure Growth Status 07/04/17 13:00 Blood Peripheral Aerobic Blood Culture - Preliminary NO GROWTH IN 1 DAY Resulted 07/04/17 13:00 Blood Peripheral Anaerobic Blood Culture - Preliminary NO GROWTH IN 1 DAY Resulted 07/04/17 10:00 Sputum Expectorated Sputum Gram Stain - Final Resulted 07/04/17 10:00 Sputum Expectorated Sputum Sputum Culture - Preliminary HEAVY GROWTH NORMAL RESPIRATORY BRENNAN... Resulted 07/04/17 16:30 Urine Catheterized Urine Legionella Antigen - Final PRESUMPTIVE NEGATIVE FOR LEGIONELLA P... Complete 07/04/17 16:30 Urine Catheterized Urine Streptococcus pneumoniae Antigen (M - Final PRESUMPTIVE NEGATIVE FOR STREPTOCOCCU... Complete Imaging Last Impressions Abdomen X-Ray 07/04/17 0600 Signed Impressions: Service Date/Time: Tuesday, July 04, 2017 05:30 - CONCLUSION: 1. Stable gaseous distention of bowel since July 02 comparison. Albert Walden MD Chest X-Ray 07/04/17 0000 Signed Impressions: Service Date/Time: Tuesday, July 04, 2017 15:43 - CONCLUSION: 1. Stable subtle central perihilar upper lobe patchy opacities which may reflect developing infection or aspiration. 2. Minimal bibasilar airspace disease, likely atelectasis. Bryson Downing MD Abdomen MRI 07/02/17 0000 Signed Impressions: Service Date/Time: June 16:34 - CONCLUSION: 1. Hepatomegaly and hepatic steatosis. No focal mass identified. 2. Moderate splenomegaly. 3. Small amount of ascites. 4. Small bilateral pleural effusions. Wilbert Howe MD Ankle X-Ray 07/01/17 0000 Signed Impressions: Service Date/Time: Saturday, July 01, 2017 10:22 - CONCLUSION: Soft tissue mass noted to be fluid filled on ultrasound 09/10/2012. Colten Nelson MD FACR Head CT 06/30/17 0000 Signed Impressions: Service Date/Time: Saturday, July 01, 2017 02:24 - CONCLUSION: 1. No acute intracranial abnormalities. Previous fixation left maxillary sinus. Albert Walden MD Cervical Spine CT 06/30/17 0000 Signed Impressions: Service Date/Time: Saturday, July 01, 2017 02:24 - CONCLUSION: Normal examination for a patient of this age. Albert Walden MD Abdomen/Pelvis CT 06/29/17 0000 Signed Impressions: Service Date/Time: Thursday, June 29, 2017 12:52 - CONCLUSION: 1. Hepatosplenomegaly and varices noted as above. 2. Atherosclerosis. 3. Abnormal diffuse heterogeneous appearance of the liver which may be related to either marked hepatic steatosis in an inhomogeneous fashion versus steatosis and underlying diffuse liver masses. An MRI of the abdomen with and without contrast may be helpful for further evaluation of this finding. Navjot Chirinos MD Physical Exam HEENT: Normocephalic; atraumatic; no jaundice. CHEST: Resp mild resp. distress, expiratory wheezes. CARDIAC: ST ABDOMEN: Semifirm, distended, mild diffuse tenderness; bowel sounds are hypoactive. Rectal tube in place with small amount of liquid brown stool. EXTREMITIES: No clubbing, cyanosis, or edema. SKIN: Normal; no rash; no jaundice. [employer]: Confused. (Koenig,Yoli Radha ADMINISTRATION ASSISTANT) Assessment and Plan Plan ASSESSMENT: - Questionable upper GI bleeding. Pt reports intermittent nausea/vomiting with dark emesis and occasional red blood and intermittent dark stools. Not actively bleeding. Of note, does report that he has had nose bleeds x 2 days. However, he does have evidence of liver cirrhosis and varcies on CT imaging. EGD/Colonoscopy (12/24/15)---> There was a 5 cm segment of suspected Menendez's esophagus found in the distal esophagus, multiple biopsies were performed, there was erythematous gastritis in the entire examined stomach; multiple biopsies were performed, normal duodenal mucosa in the bulb and second portion of the duodenum, retroflexion was performed and was normal; the colon mucosa was otherwise normal, retroflexed views revealed no abnormalities. Pathology with gastric antral mucosal biopsies with histopathologic features consistent with chemical gastropathy, as may bee seen with bile reflux, non-steroidal anti-inflammatory drugs or other drug induced disease negative for intestinal metaplasia and dysplasia, farhat stain negative for helicobacter. GE mucosal biopsies with chronic inflammatory gastric changes consistent with reflux exhibiting extensive intestinal metaplasia, negative for dysplasia. 1. 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 Gastropathy and mild gastritis 3. Moderate duodenitis 4. No active bleeding and no sign of old bleeding 5. Retroflexed views revealed no abnormalities PPI. No active bleeding. HH 11.3/34.3. - Ileus with worsening abdominal distention, pain. CT scan abdomen and pelvis ( 06/29/17)----> Hepatosplenomegaly and varices noted as above. Atherosclerosis. Abnormal diffuse heterogeneous appearance of the liver which may be related to either marked hepatic steatosis in an inhomogeneous fashion versus steatosis and underlying diffuse liver masses. An MRI of the abdomen with and without contrast may be helpful for further evaluation of this finding. Pt states this pain began after a hernia repair in July of 2016 and is intermittent at times, but usually more constant. KUB ( 07/02/17)---> Mildly distended air-filled small bowel and colon. Likely represents ijleus. No significant interval change from CT of 06/29/17. S/P Fleets enema. Pulled NGT out. Rectal tube in place. Reglan, Miralax. KUB (07/04/17)---> stable gaseous distention of bowel since July 02 comparison. Okay to leave NGT out for now (going into DT's and this will likely agitate him more and the abdomen is slightly improved). - Liver cirrhosis/Elevated LFTs. Pt reports that he has been told that his liver was enlarged, but never told that he had liver cirrhosis. He continues to drink ETOH, stating [address] has findings of varcies, he has thrombocytopenia, coagulopathy, hypoalbuminemia, all of which support a dx of liver cirrhosis. MRI (07/02/17)---> hepatomegaly and hepatic steatosis, no focal mass identified. Moderate splenomegaly, small amount of of ascites. Small bilateral pleural effusion. Will check liver workup to r/o other underlying liver disease- JOSE negative, AMA <20.0, ASMA negative, AFP 4.6. ALpha 1 Antitrypsin 221, Ceruloplasmin 37, Ferritin 94, Iron saturation 14.0%. Hepatitis profile neg. This is likely related to ETOH. DF 6.0. MELD 13. - Menendez's Esopahgus, GERD. Takes ranitidine as needed at home, has daily symptoms. EGD as above. PPI - Thrombocytopenia, Coagulopathy. Likely related to cirrhosis. - Anemia, macrocytic. HH stable, 11.3/34.3. Folate 17.2, B12 1711. - Hepatic encephalopathy, slight shaking, poor historian. Ammonia 33, but seems oriented - ETOH abuse. DT precautions per attending. - Resp. Insufficiency/Asthma, per attending. - Depression, Hyperlipidemia. Per attending. PLAN: - NPO - Okay to leave NGT for now - Ammonia level - Cont. Reglan - Cont.Miralax - Cont. Protonix - Cont. Lactulose - Cont. Xifaxan - Monitor labs - KUB in am - DT precautions per attending. - Supportive care - Further recommendations to follow based on results of above - PT seen and examined by Dr. Lott and myself and this note is written on his behalf (Yoli Koenig) Plan Patient was seen and examined, agree with above note, we will continue suctioning the NG tube, KUB in the morning (Vidya Lott MD) Yoli Koenig Jul 05, 2017 16:23 Vidya Lott MD Jul 05, 2017 18:12
--- NOTE | 2017-07-05 16:41 | HHI.PR ---
Subjective Remarks He is better today . Off BiPAP and on N/C 4L. NG is in and Drains.No fever or active GI bleed. Objective Vital Signs Date Time Temp Pulse Resp B/P (MAP) Pulse Ox O2 Delivery O2 Flow Rate FiO2 07/05/17 15:41 18 07/05/17 09:26 18 07/05/17 08:00 98.9 100 40 135/77 (96) 99 07/05/17 07:45 97 Simple Mask 6.00 07/05/17 07:00 97 Nasal Cannula 6.00 07/05/17 06:00 96 07/05/17 04:42 98 40 07/05/17 04:00 99.0 93 26 128/72 (90) 100 07/05/17 04:00 93 07/05/17 02:00 92 07/05/17 01:29 98 40 07/05/17 00:00 93 07/05/17 00:00 99.3 93 24 130/78 (95) 100 07/04/17 22:33 100 40 07/04/17 22:00 96 07/04/17 20:00 99.5 92 22 126/75 (92) 99 07/04/17 20:00 92 07/04/17 19:00 96 Bi-Pap 40 07/04/17 18:00 97 I/O 07/04/17 07/04/17 07/04/17 07/05/17 07/05/17 07/05/17 07:00 15:00 23:00 07:00 15:00 23:00 Intake Total 567 ml 500 ml Output Total 1125 ml 1200 ml 310 ml Balance -1125 ml 567 ml -700 ml -310 ml IV Total 567 ml 500 ml Output Urine Total 900 ml 1000 ml 300 ml Stool Total 200 ml 10 ml Gastric Drainage Total 225 ml Result Diagram: 07/05/1751507/05/17515 Objective Remarks The patient is a 51 year-old male, lying in bed, in no mild respiratory distress, agitated. HEENT: Atraumatic, normocephalic. Pupils equal, round and reactive to light and accommodation. Conjunctivae pink. Nonicteric sclerae. Oral mucosa dry Neck: Supple. No JVD, adenopathy, thyromegaly. Trachea midline. Cardiovascular: Regular rate and rhythm. Normal S1-S2. No murmurs, rubs or gallops noted. Pulmonary exam: Bilateral wheezing.Occ Crackles. Abdomen: Moderate distension. No Mass. Positive bowel sounds. Extremities: No cyanosis, clubbing and edema. Neuro: No focal sensory deficit, agitated. Assessment and Plan Assessment and Plan IMPRESSION: 1. Altered mental status. 2. ETOH abuse. 3. Anemia, status post EGD. 4. Thrombocytopenia secondary to liver disease. 5. Elevated AST. 6. Elevated ammonia level. 7. History of GERD and Menendez's esophagus. 8. Aspiration Pneumonia Plan : 1. Continue NG to suction. 2. Continue antibiotics , Zosyn /Vancomycin/Flagyl. 3. Nebs qid , Duoneb. 4. Will Get CT chest W/O contrast. 5. CXR, CBC,BMP AM. 6. Continue IV Fluids for hydration Miesha Horan MD Jul 05, 2017 16:41
--- NOTE | 2017-07-05 18:53 | RADRPT ---
EXAM DATE/TIME: 07/05/2017 18:11 [facility] COMPARISON: No previous studies available for comparison. INDICATIONS : Shortness of breath. RADIATION DOSE: 9.89 CTDIvol (mGy) MEDICAL HISTORY : Carcinoma, esophageal. SURGICAL HISTORY : Left eye. ENCOUNTER: Initial ACUITY: 1 day PAIN SCALE: Non-responsive LOCATION: Bilateral chest TECHNIQUE: Volumetric scanning of the chest was performed. Using automated exposure control and adjustment of t he mA and/or kV according to patient size, radiation dose was kept as low as reasonably achievable to obtain optimal diagnostic quality images. DICOM format image data is available electronically for r eview and comparison. Follow-up recommendations for detected pulmonary nodules are based at a minimum on nodule size and pa tient risk factors according to Fleischner Society Guidelines. FINDINGS: LUNGS: There is segmental consolidation with volume loss and air bronchograms in the medial basal segment of the right lower lung and some patchy areas of consolidative infiltrate in the dependent left lower l yakov. There is some mild interstitial opacity anterior in the right midlung without consolidation. A similar appearing interstitial infiltrate is present in the medial left upper lung anteriorly. PLEURAE: There is no pleural thickening or pleural effusion. MEDIASTINUM: The heart and great vessels demonstrate no acute abnormality. There is no mediastinal or hilar lymph adenopathy. AXILLAE: Within normal limits. No lymphadenopathy. MUSCULOSKELETAL: Within normal limits for patient age. MISCELLANEOUS: There is mild amount of ascites about the liver. The adrenal glands are not included in the field-of -view. CONCLUSION: 1. Segmental consolidation with volume loss medial right lower lung. 2. Atelectasis or basilar consolidation left lower lung. 3. Mild amount of ascites. Caesar Ann MD on July 05, 2017 at 18:49 Board Certified Radiologist. This report was verified electronically.
--- NOTE | 2017-07-05 19:31 | MB ---
cc: BALA EASLEY DATE OF CONSULTATION 07/04/2017 REASON FOR CONSULTATION Respiratory failure and pulmonary infiltrates. HISTORY OF THE PRESENT ILLNESS This is a 51-year-old white male with a history of gastric ulcers, esophageal wires, history of ethanolism and tobacco abuse and Menendez's esophagus who was admitted through the emergency room with abdominal pain and distension. The patient apparently had some GI bleed with hematemesis and lower GI bleed as well. He was initially admitted under the hospitalist service and an upper endoscopy was done which showed gastritis and duodenitis. He had to be transferred to the intensive care unit since he was going into delirium tremens and had to be placed on Precedex drip and critical care medicine evaluated him. The patient has been placed on oxygen since he was hypoxic and was having significant wheezing and shortness of breath. An NG tube had been placed for decompression of his abdomen which has been distended since admission. The patient also has a persistent cough and sore throat and hoarseness, but no fevers or chills. He had aspirated on one occasion and he did have some emesis. PAST MEDICAL HISTORY Has included: 1. History of esophageal varices. 2. History of Menendez's esophagus. 3. History of gastric ulcers. 4. depression and anxiety. PAST SURGICAL HISTORY Surgery includes: 1. ____ laparotomy. 2. History of eye surgery. 3. Past history of sinus repair. 4. Gastroscopies. MEDICATIONS List included: 1. Protonix. 2. Rifaximin. 3. Haldol. 4. Lactulose. SOCIAL HISTORY Habits, the patient drinks alcohol regularly. Smokes half to one-pack per day has done so for over 30 years. ALLERGIES None. FAMILY HISTORY Significant for breast cancer in his sisters and one brother with throat cancer. REVIEW OF SYSTEMS The patient is very uncomfortable, unable to answer questions. He is complaining of abdominal pain and distension, nausea, vomiting and has had some leg swelling. He has dizziness and loss of appetite and sore throat. PHYSICAL EXAMINATION GENERAL: This well-built, middle-aged white male whose face is flushed. He is in some distress and tachypneic. VITAL SIGNS: Heart rate was 112, respirations 24, temperature 99, blood pressure 130/70. HEENT: Head normocephalic. Pupils are reactive. Sclerae are clear. Throat dry. Nasal mucosa injected. NECK: Supple. No venous distension. No thyromegaly. CHEST: Decreased breath sounds at the bases with coarse wheezes bilaterally with occasional crackles in the left lung chavez. HEART: The heart sounds are regular S1-S2 with no murmur. No S3. ABDOMEN: The abdomen is distended and is firm. There is no organomegaly. The bowel sounds are faint. There is mild tenderness in the upper abdomen. RECTAL: Exam is deferred. EXTREMITIES: Reveal decreased peripheral pulses. Reflexes are 1+. He does move all his extremities well with no gross motor deficits. NEUROLOGIC: Cranial nerves grossly intact. SKIN: No lesions. IMPRESSION 1. Abdominal ileus with history of esophageal varices. 2. GI bleeding and anemia. 3. Aspiration pneumonia. 4. Probable obstructive lung disease. 5. Hepatitis and elevated ammonia level. PLAN The patient has been placed on antibiotic coverage for pneumonia which includes vancomycin and Piperacillin. We will also add Flagyl 500 mg q.8 h. Nebulized DuoNeb solution added q.i.d. BiPap to be used since he is desaturating on nasal cannula. The patient will have frequent suctioning for the throat and aspiration precautions to be done as well. Nebulized DuoNeb solution added q.i.d. A followup chest x-ray has been ordered. When he is clinically stable a chest CT will be ordered to evaluate the lower lung chavez. brandon you Dr. Dacosta for this consultation. MD YUNIOR Ballard/KALEB /4:29 PM /7:10 PM
[2017-07-05] MEDS: HALOPERIDOL LACTATE 5 MG/ML AMP IM PRN (22:45)
[2017-07-05] MEDS ORDERED: PHARMACY ORDERED LAB ONE (22:45)
[2017-07-06] VITALS (14 sets, daily range): BP systolic 108–143; BP diastolic 62–94; PULSE 74–103; RESP 16–35; TEMP 97.9–99.2; O2SAT 94–99
[2017-07-06] MEDS: traMADol HCL 50 MG TAB PO PRN
[2017-07-06] MEDS: HALOPERIDOL LACTATE 5 MG/ML AMP IM PRN (01:12)
[2017-07-06] MEDS: LORazepam 2 MG/ML VIAL IV PUSH PRN ×4 (01:12→19:33)
[2017-07-06] MEDS: INSULIN NovoLIN REGULAR SUPPLEMENTAL SCALE SQ SCH ×6 (01:14→20:59)
[2017-07-06] MEDS: chlordiazePOXIDE 25 MG CAP PO SCH (02:31)
[2017-07-06] MEDS: METOCLOPRAMIDE HCL 10 MG/2 ML VIAL IV PUSH SCH ×3 (04:32→20:58)
[2017-07-06] MEDS: cloNIDine HCL 0.2 MG TAB PO SCH ×3 (04:32→20:58)
--- NOTE | 2017-07-06 06:21 | RADRPT ---
EXAM DATE/TIME: 07/06/2017 04:49 [facility] COMPARISON: ABDOMEN KUB ONLY, July 04, 2017, 5:30. INDICATIONS : Abdominal pain. MEDICAL HISTORY : Carcinoma, esophageal. SURGICAL HISTORY : None. ENCOUNTER: Subsequent ACUITY: 1 week PAIN SCORE: Non-responsive. LOCATION: Bilateral Abdomen FINDINGS: Mild to moderate distention of segments of small and large bowel again noted, not significantly simpson ed. No or free air. No gastric distention. CONCLUSION: No significant change bowel distention, probably indicative of mild ileus. Nikko Owen MD on July 06, 2017 at 6:19 Board Certified Radiologist. This report was verified electronically.
--- NOTE | 2017-07-06 06:21 | RADRPT ---
EXAM DATE/TIME: 07/06/2017 04:49 [facility] COMPARISON: ABDOMEN KUB ONLY, July 04, 2017, 5:30. INDICATIONS : Abdominal pain. MEDICAL HISTORY : Carcinoma, esophageal. SURGICAL HISTORY : None. ENCOUNTER: Subsequent ACUITY: 1 week PAIN SCORE: Non-responsive. LOCATION: Bilateral Abdomen FINDINGS: Mild to moderate distention of segments of small and large bowel again noted, not significantly simpson ed. No or free air. No gastric distention. CONCLUSION: No significant change bowel distention, probably indicative of mild ileus. iNkko Owen MD on July 06, 2017 at 6:19 Board Certified Radiologist. This report was verified electronically.
[2017-07-06] MEDS: RESP: ALBUTEROL 2.5 MG/IPRATROPIUM 0.5 MG NEB (SCH) NEB ×3 (08:35→19:36)
[2017-07-06] MEDS: REMOVE OLD PATCH T-DERMAL SCH (09:00)
[2017-07-06 09:01] LABS: AUTOMATED NEUTROPHIL # 2.7 TH/MM3 (1.8-7.7); EOSINOPHIL # 0.2 TH/MM3 (0-0.4); HEMATOCRIT 32.3 % (39.0-51.0); HEMOGLOBIN 10.5 GM/DL (13.0-17.0); LYMPH % 21.2 % (9.0-44.0); MEAN CORPUSCULAR HEMOGLOBIN 34.6 PG (27.0-34.0); MEAN CORPUSCULAR HGB CONC 32.6 % (32.0-36.0); MEAN PLATELET VOLUME 8.3 FL (7.0-11.0); MONO % 16.1 % (0.0-8.0); MONOCYTE # 0.7 TH/MM3 (0-0.9); NEUT % 57.7 % (16.0-70.0); PLATELET COUNT 135 TH/MM3 (150-450); RED BLOOD COUNT 3.05 MIL/MM3 (4.50-5.90); RED CELL DISTRIBUTION WIDTH 17.1 % (11.6-17.2); WHITE BLOOD COUNT 4.6 TH/MM3 (4.0-11.0)
[2017-07-06] MEDS: guaiFENesin E.R. 600 MG TAB PO SCH ×2 (09:01→20:57)
[2017-07-06] MEDS: RIFAXIMIN 550 MG TAB PO SCH ×2 (09:01→20:58)
[2017-07-06] MEDS: THIAMINE HCL 100 MG TAB PO SCH (09:01)
[2017-07-06] MEDS: DOCUSATE SODIUM 50 MG/SENNA 8.6 MG TAB PO SCH ×2 (09:01→20:58)
[2017-07-06] MEDS: PANTOPRAZOLE SODIUM 40 MG VIAL IV SCH ×2 (09:01→20:57)
[2017-07-06] MEDS: POLYETHYLENE GLYCOL 17 GM PKG PO SCH (09:02)
[2017-07-06] MEDS: metroNIDAZOLE 500 MG INJ 100 ML IV SCH ×3 (09:02→23:29)
[2017-07-06] MEDS: LACTULOSE SYRUP 20 GM/30 ML CUP PO SCH ×2 (09:02→17:40)
[2017-07-06] MEDS: NICOTINE 14 MG/24 HR PATCH T-DERMAL SCH (09:02)
[2017-07-06] MEDS: PIPERACIL-TAZO 3.375 GM PREMIX 50 ML IV SCH ×2 (09:02→17:40)
[2017-07-06] MEDS: SODIUM CHLORIDE 0.9% FLUSH 10 ML FLUSH IV FLUSH SCH ×2 (09:03→20:57)
[2017-07-06 09:26] LABS: BICARBONATE 23.8 MEQ/L (21.0-32.0); CALCIUM 8.1 MG/DL (8.5-10.1); CREATININE 0.78 MG/DL (0.60-1.30)
--- NOTE | 2017-07-06 10:07 | HHI.CCPN ---
Subjective Remarks/Hospital Course The patient is a 51-year-old male with past medical history of Menendez's esophagus, gastric ulcers, esophageal varices and tobacco abuse. He presented to [facility] ED yesterday for evaluation of abdominal pain. In addition the patient reported melena and some hematemesis. He denied any associated symptoms of nausea, vomiting, shortness of breath, chest pain or any constitutional symptoms. He had a CT of the abdomen and pelvis on arrival which showed hepatosplenomegaly, varices and possible hepatic steatosis. The patient was initially admitted under hospitalist service and evaluated by GI service for possible GI bleed. The patient underwent upper endoscopy today which showed gastropathy and mild gastritis, moderate duodenitis with no signs of active bleeding. [place] [facility] [place] the patient is likely going into DTs. He was placed on Precedex drip for sedation. Critical Care Medicine was consulted for critical care management. His laboratory data today showed elevated ammonia level at 67. The patient was placed on CIWA protocol. He denies any chest pain, shortness of breath. Subjective 07/01: Afebrile. CT brain, CT C-spine negative early this AM. Currently on dexmedetomidine at 0.8 mics grams per kilogram per hour for sedation. No lorazepam given overnight. Currently in chlordiazepoxide 50 mg every 6 hours scheduled question however that was held as well due to the sedative effects of the dexmedetomidine. 07/02: Off Precedex since midnight. Alert oriented 3. Complaints of abdominal pain and distention. Bedside ultrasound does not show any significant ascites. MRI was recommended for liver mass evaluation-we'll request MRI abdomen. D/W Yoli Koenig 07/03 No events overnight. Awake and alert. MRI abdomen showed Hepatomegaly and hepatic steatosis. No focal mass identified. Moderate splenomegaly. 3. Small amount of ascites. Small bilateral pleural effusions. 07/04 Patient was in resp distress , tachycardic, tachypneic and was subsequently placed on BIPAP / with 50% FIO2 with sats 94%. Afebrile. ABG on 50% VM showed acute hypoxemic and hypercapnic resp failure. Lasix 40mg IV x1 was given. 07/05 Patient is off BIPAP, on 6L simple mask with good sats. Afebrile. 07/06 No events overnight. On 2L oxygen. Afebrile. Objective Vital Signs Date Time Temp Pulse Resp B/P (MAP) Pulse Ox O2 Delivery O2 Flow Rate FiO2 07/06/17 08:35 98 Nasal Cannula 2.00 07/06/17 06:00 79 07/06/17 04:00 99.1 20 117/80 (92) 07/05/17 04:42 40 Intake and Output 07/06/17 07/06/17 07/07/17 08:00 16:00 00:00 Output Total 650 ml Balance -650 ml Result Diagram: 07/06/17 0807/06/17804 Other Results Laboratory Tests Test 07/05/17 22:05 07/06/17 00:28 07/06/17 08:05 Ammonia 66 MCMOL/L Vancomycin Level Trough 9.3 MCG/ML White Blood Count 4.6 TH/MM3 Red Blood Count 3.05 MIL/MM3 Hemoglobin 10.5 GM/DL Hematocrit 32.3 % Mean Corpuscular Volume 106.0 FL Mean Corpuscular Hemoglobin 34.6 PG Mean Corpuscular Hemoglobin Concent 32.6 % Red Cell Distribution Width 17.1 % Platelet Count 135 TH/MM3 Mean Platelet Volume 8.3 FL Neutrophils (%) (Auto) 57.7 % Lymphocytes (%) (Auto) 21.2 % Monocytes (%) (Auto) 16.1 % Eosinophils (%) (Auto) 4.0 % Basophils (%) (Auto) 1.0 % Neutrophils # (Auto) 2.7 TH/MM3 Lymphocytes # (Auto) 1.0 TH/MM3 Monocytes # (Auto) 0.7 TH/MM3 Eosinophils # (Auto) 0.2 TH/MM3 Basophils # (Auto) 0.0 TH/MM3 CBC Comment DIFF FINAL Differential Comment Blood Urea Nitrogen 20 MG/DL Creatinine 0.78 MG/DL Random Glucose 89 MG/DL Calcium Level 8.1 MG/DL Sodium Level 140 MEQ/L Potassium Level 3.1 MEQ/L Chloride Level 105 MEQ/L Carbon Dioxide Level 23.8 MEQ/L Anion Gap 11 MEQ/L Estimat Glomerular Filtration Rate 105 ML/MIN Imaging Last Impressions Chest CT 07/05/17 2868 Signed Impressions: Service Date/Time: Wednesday, July 05, 2017 18:11 - CONCLUSION: 1. Segmental consolidation with volume loss medial right lower lung. 2. Atelectasis or basilar consolidation left lower lung. 3. Mild amount of ascites. Caesar Ann MD Chest X-Ray 07/05/17 0000 Signed Impressions: Service Date/Time: Wednesday, July 05, 2017 11:05 - CONCLUSION: 1. No acute cardiopulmonary findings. 2. NG tube in satisfactory position. Franc Nelson MD Abdomen X-Ray 07/04/17 0600 Signed Impressions: Service Date/Time: Tuesday, July 04, 2017 05:30 - CONCLUSION: 1. Stable gaseous distention of bowel since July 02 comparison. Albert Walden MD Abdomen MRI 07/02/17 0000 Signed Impressions: Service Date/Time: June 16:34 - CONCLUSION: 1. Hepatomegaly and hepatic steatosis. No focal mass identified. 2. Moderate splenomegaly. 3. Small amount of ascites. 4. Small bilateral pleural effusions. Wilbert Howe MD Ankle X-Ray 07/01/17 0000 Signed Impressions: Service Date/Time: Saturday, July 01, 2017 10:22 - CONCLUSION: Soft tissue mass noted to be fluid filled on ultrasound 09/10/2012. Colten Nelson MD FACR Head CT 06/30/17 0000 Signed Impressions: Service Date/Time: Saturday, July 01, 2017 02:24 - CONCLUSION: 1. No acute intracranial abnormalities. Previous fixation left maxillary sinus. Albert Walden MD Cervical Spine CT 06/30/17 0000 Signed Impressions: Service Date/Time: Saturday, July 01, 2017 02:24 - CONCLUSION: Normal examination for a patient of this age. Albert Walden MD Abdomen/Pelvis CT 06/29/17 0000 Signed Impressions: Service Date/Time: Thursday, June 29, 2017 12:52 - CONCLUSION: 1. Hepatosplenomegaly and varices noted as above. 2. Atherosclerosis. 3. Abnormal diffuse heterogeneous appearance of the liver which may be related to either marked hepatic steatosis in an inhomogeneous fashion versus steatosis and underlying diffuse liver masses. An MRI of the abdomen with and without contrast may be helpful for further evaluation of this finding. Navjot Chirinos MD Objective Remarks GENERAL: Patient is 51 yo lying in bed in NAD SKIN: Warm and dry. HEAD: Normocephalic. EYES: No scleral icterus. No injection or drainage. NECK: Supple, trachea midline. No JVD or lymphadenopathy. CARDIOVASCULAR:Tachycardic without murmurs, gallops, or rubs. RESPIRATORY: Breath sounds equal bilaterally. Few coarse BS GASTROINTESTINAL: Abdomen soft, non-tender,Distended. MUSCULOSKELETAL: No cyanosis, or edema. Neuro: awake. Procedures 06/30/17 EGD A/P Assessment and Plan Neuro/Psych: EtOH withdrawal Alcohol dependence History of depression/anxiety Currently on CIWA protocol. Decrease Librium 25mg daily Continue Thiamine 100mg daily CT brain 07/01 revealed no acute intracranial findings. Patient with history of right zygomatic/maxillary sinus surgery 2015 CT C-spine 07/01 negative findings Tramadol 50-100 mg every 4 hours as needed pain CV: Atherosclerotic vascular disease Dyslipidemia Hypertension Monitor HR and BP keep MAP>65mmHg On Clonidine 0.2mg Q8 for BP control Resp: Possible Aspiration Tobaccoism History of asthma/reactive airway disease Continue with oxygen keep sat> 92% Bronchodilators NIPPV for resp. distress. Currently on nicotine patch at 14 mg daily. Pulm is following-/ [facility]: History esophageal cancer? Menendez's esophagus Gastroesophageal reflux disease Gout Gastritis/duodenitis Splenomegaly Constipation/chronic Hyperammonia Keep NPO for now, GI is following KUB 07/06: Mild Ileus EGD 06/30 by GI revealed mild gastritis, duodenitis. Likely esophagitis/Menendez' s not biopsied. Pantoprazole 40 mg IV daily for GI prophylaxis Lactulose 30 cc twice a day and Xifaxan 500 mg by mouth twice a day for hyperammonemia. CT abdomen/pelvis revealed splenomegaly 19.3 cm. varices at the esophageal hiatus, gastric ligament and left upper quadrant. Renal splenic shunt appreciated. MRI abdomen showed Hepatomegaly and hepatic steatosis. No focal mass identified. Moderate splenomegaly. Small amount of ascites.Small bilateral pleural effusions. Liver workup including JOSE, ASMA, Hep profile all negative Endo: Elevated TSH 6.7. History of gout Sliding-scale insulin Novulin R every 4 hrs for maintain euglycemia Renal: Monitor renal function, I/O's, electrolytes replacement per protocol. Will need K replacement today Heme: Macrocytic anemia Thrombocytopenia chronic likely secondary to underlying EtOH /cirrhotic liver disease-(improving) Monitor CBC/coags No signs of hemolysis/consumption thrombocytopenia. This appears to be a chronic condition ID: Continue with abx ( Vanco, Zosyn) Monitor for signs of infections ( Fever, WBC) Follow up on Blood and sputum cx 07/04: NGTD , strep pneumonia and Legionella urinary Ag negative 06/30 - blood cultures 2 -ve to date MSK: Right ankle pain X-ray right ankle rule out fracture-Soft tissue mass noted to be fluid filled on ultrasound 09/10/2012. No acute fracture PT evaluate and treat Access - Utilize peripheral IV. Prophylaxis - GI - pantoprazole - DVT - SCD/holding pharmacological prophylaxis in light of thrombocytopenia Will transfer care to [facility] Level 3 Vanesa Stinson MD Jul 06, 2017 10:07
[2017-07-06] MEDS: VANCOMYCIN INJ 2,000 MG in SODIUM CHLORID 0.9% 500 ML INJ 500 ML IV SCH (13:41)
--- NOTE | 2017-07-06 15:20 | HHI.GIFU ---
Subjective Remarks Resting in bed. Lethargic. No n/v since he pulled out NGT last night + Liquid stool via rectal tube. (Yoli Koenig) Objective Vitals I&O Vital Signs Date Time Temp Pulse Resp B/P (MAP) Pulse Ox O2 Delivery O2 Flow Rate FiO2 07/06/17 14:00 84 07/06/17 12:00 79 07/06/17 12:00 98.6 79 33 133/75 (94) 99 07/06/17 10:00 91 07/06/17 08:35 98 Nasal Cannula 2.00 07/06/17 08:00 98.3 97 35 142/76 (98) 97 07/06/17 08:00 90 07/06/17 07:00 96 Nasal Cannula 6.00 07/06/17 06:00 79 07/06/17 04:00 84 07/06/17 04:00 99.1 84 20 117/80 (92) 96 07/06/17 02:00 103 07/06/17 00:00 99.2 81 17 108/62 (77) 96 07/06/17 00:00 81 07/05/17 22:00 106 07/05/17 20:00 87 07/05/17 20:00 99.3 87 20 130/68 (88) 97 07/05/17 19:27 99 Nasal Cannula 2.50 07/05/17 19:00 97 Nasal Cannula 6.00 07/05/17 18:00 97 07/05/17 16:00 98.7 109 39 143/95 (111) 07/05/17 16:00 109 07/05/17 15:41 18 I/O 07/05/17 07/05/17 07/05/17 07/06/17 07/06/17 07/06/17 07:00 15:00 23:00 07:00 15:00 23:00 Output Total 310 ml 2000 ml 650 ml Balance -310 ml -2000 ml -650 ml Output Urine Total 300 ml 1800 ml 600 ml Stool Total 10 ml 200 ml 50 ml Laboratory Laboratory Tests Test 07/05/17 22:05 07/06/17 00:28 07/06/17 08:05 Ammonia 66 Vancomycin Level Trough 9.3 White Blood Count 4.6 Red Blood Count 3.05 Hemoglobin 10.5 Hematocrit 32.3 Mean Corpuscular Volume 106.0 Mean Corpuscular Hemoglobin 34.6 Mean Corpuscular Hemoglobin Concent 32.6 Red Cell Distribution Width 17.1 Platelet Count 135 Mean Platelet Volume 8.3 Neutrophils (%) (Auto) 57.7 Lymphocytes (%) (Auto) 21.2 Monocytes (%) (Auto) 16.1 Eosinophils (%) (Auto) 4.0 Basophils (%) (Auto) 1.0 Neutrophils # (Auto) 2.7 Lymphocytes # (Auto) 1.0 Monocytes # (Auto) 0.7 Eosinophils # (Auto) 0.2 Basophils # (Auto) 0.0 CBC Comment DIFF FINAL Differential Comment Blood Urea Nitrogen 20 Creatinine 0.78 Random Glucose 89 Calcium Level 8.1 Sodium Level 140 Potassium Level 3.1 Chloride Level 105 Carbon Dioxide Level 23.8 Anion Gap 11 Estimat Glomerular Filtration Rate 105 Date/Time Source Procedure Growth Status 07/04/17 13:00 Blood Peripheral Aerobic Blood Culture - Preliminary NO GROWTH IN 2 DAYS Resulted 07/04/17 13:00 Blood Peripheral Anaerobic Blood Culture - Preliminary NO GROWTH IN 2 DAYS Resulted 07/04/17 10:00 Sputum Expectorated Sputum Gram Stain - Final Complete 07/04/17 10:00 Sputum Expectorated Sputum Sputum Culture - Final HEAVY GROWTH NORMAL RESPIRATORY BRENNAN Complete 07/04/17 16:30 Urine Catheterized Urine Legionella Antigen - Final PRESUMPTIVE NEGATIVE FOR LEGIONELLA P... Complete 07/04/17 16:30 Urine Catheterized Urine Streptococcus pneumoniae Antigen (M - Final PRESUMPTIVE NEGATIVE FOR STREPTOCOCCU... Complete Imaging Last Impressions Abdomen X-Ray 07/06/17 0600 Signed Impressions: Service Date/Time: Thursday, July 06, 2017 04:49 - CONCLUSION: No significant change bowel distention, probably indicative of mild ileus. Nikko Owen MD Chest CT 07/05/17 1635 Signed Impressions: Service Date/Time: Wednesday, July 05, 2017 18:11 - CONCLUSION: 1. Segmental consolidation with volume loss medial right lower lung. 2. Atelectasis or basilar consolidation left lower lung. 3. Mild amount of ascites. Caesar Ann MD Chest X-Ray 07/05/17 0000 Signed Impressions: Service Date/Time: Wednesday, July 05, 2017 11:05 - CONCLUSION: 1. No acute cardiopulmonary findings. 2. NG tube in satisfactory position. Franc Nelson MD Abdomen MRI 07/02/17 0000 Signed Impressions: Service Date/Time: June 16:34 - CONCLUSION: 1. Hepatomegaly and hepatic steatosis. No focal mass identified. 2. Moderate splenomegaly. 3. Small amount of ascites. 4. Small bilateral pleural effusions. Wilbert Howe MD Ankle X-Ray 07/01/17 0000 Signed Impressions: Service Date/Time: Saturday, July 01, 2017 10:22 - CONCLUSION: Soft tissue mass noted to be fluid filled on ultrasound 09/10/2012. Colten Nelson MD FACR Head CT 06/30/17 0000 Signed Impressions: Service Date/Time: Saturday, July 01, 2017 02:24 - CONCLUSION: 1. No acute intracranial abnormalities. Previous fixation left maxillary sinus. Albert Walden MD Cervical Spine CT 06/30/17 0000 Signed Impressions: Service Date/Time: Saturday, July 01, 2017 02:24 - CONCLUSION: Normal examination for a patient of this age. Albert Walden MD Abdomen/Pelvis CT 06/29/17 0000 Signed Impressions: Service Date/Time: Thursday, June 29, 2017 12:52 - CONCLUSION: 1. Hepatosplenomegaly and varices noted as above. 2. Atherosclerosis. 3. Abnormal diffuse heterogeneous appearance of the liver which may be related to either marked hepatic steatosis in an inhomogeneous fashion versus steatosis and underlying diffuse liver masses. An MRI of the abdomen with and without contrast may be helpful for further evaluation of this finding. Navjot Chirinos MD Physical Exam HEENT: Normocephalic; atraumatic; no jaundice. CHEST: Resp. even/unlabored, diminished CARDIAC: ST ABDOMEN: Soft today, distended, mild diffuse tenderness (improved); bowel sounds are hypoactive. Rectal tube in place with small amount of liquid brown stool. EXTREMITIES: No clubbing, cyanosis, or edema. SKIN: Normal; no rash; no jaundice. SENIOR COMMUNICATIONS ENGINEER: Lethargic, Confused. (Yoli Koenig) Assessment and Plan Plan ASSESSMENT: - Questionable upper GI bleeding. Pt reports intermittent nausea/vomiting with dark emesis and occasional red blood and intermittent dark stools. Not actively bleeding. Of note, does report that he has had nose bleeds x 2 days. However, he does have evidence of liver cirrhosis and varcies on CT imaging. EGD/Colonoscopy (12/24/15)---> There was a 5 cm segment of suspected Menendez's esophagus found in the distal esophagus, multiple biopsies were performed, there was erythematous gastritis in the entire examined stomach; multiple biopsies were performed, normal duodenal mucosa in the bulb and second portion of the duodenum, retroflexion was performed and was normal; the colon mucosa was otherwise normal, retroflexed views revealed no abnormalities. Pathology with gastric antral mucosal biopsies with histopathologic features consistent with chemical gastropathy, as may bee seen with bile reflux, non-steroidal anti-inflammatory drugs or other drug induced disease negative for intestinal metaplasia and dysplasia, farhat stain negative for helicobacter. GE mucosal biopsies with chronic inflammatory gastric changes consistent with reflux exhibiting extensive intestinal metaplasia, negative for dysplasia. 1. 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 Gastropathy and mild gastritis 3. Moderate duodenitis 4. No active bleeding and no sign of old bleeding 5. Retroflexed views revealed no abnormalities PPI. No active bleeding. HH 11.3/34.3. - Ileus with worsening abdominal distention, pain. CT scan abdomen and pelvis ( 06/29/17)----> Hepatosplenomegaly and varices noted as above. Atherosclerosis. Abnormal diffuse heterogeneous appearance of the liver which may be related to either marked hepatic steatosis in an inhomogeneous fashion versus steatosis and underlying diffuse liver masses. An MRI of the abdomen with and without contrast may be helpful for further evaluation of this finding. Pt states this pain began after a hernia repair in July of 2016 and is intermittent at times, but usually more constant. S/P Fleets enema. KUB (07/06/17)---> No significant change bowel distention, probably indicative of mild ileus. Reglan, Miralax. Clinically, improved today. Abdomen softer, no n/v ( pulled out NGT last night). Will start clears - Liver cirrhosis/Elevated LFTs. Pt reports that he has been told that his liver was enlarged, but never told that he had liver cirrhosis. He continues to drink ETOH, stating [address] has findings of varcies, he has thrombocytopenia, coagulopathy, hypoalbuminemia, all of which support a dx of liver cirrhosis. MRI (07/02/17)---> hepatomegaly and hepatic steatosis, no focal mass identified. Moderate splenomegaly, small amount of of ascites. Small bilateral pleural effusion. Will check liver workup to r/o other underlying liver disease- JOSE negative, AMA <20.0, ASMA negative, AFP 4.6. ALpha 1 Antitrypsin 221, Ceruloplasmin 37, Ferritin 94, Iron saturation 14.0%. Hepatitis profile neg. This is likely related to ETOH. DF 6.0. MELD 13. - Menendez's Esophagus, GERD. Takes ranitidine as needed at home, has daily symptoms. EGD as above. PPI - Thrombocytopenia, Coagulopathy. Likely related to cirrhosis. - Anemia, macrocytic. HH stable, 10.5/32.3. Folate 17.2, B12 1711. - Hepatic encephalopathy,Ammonia 66 - ETOH abuse. DT precautions per attending. - Resp. Insufficiency/Asthma, per attending. - Depression, Hyperlipidemia. Per attending. PLAN: - Clear liquids - Cont. Reglan - Cont. Miralax - Cont. Protonix - Increase Lactulose to TID dosing - Cont. Xifaxan - Monitor labs - KUB in am - DT precautions per attending. - Supportive care - Further recommendations to follow based on results of above - PT seen and examined by Dr. Salgado and myself and this note is written on her behalf (Yoli Koenig) Physician Comments seen, examined agree with above (Priscila Salgado MD) Yoli Koenig Jul 06, 2017 15:19 Priscila Salgado MD Jul 06, 2017 19:30
--- NOTE | 2017-07-06 19:27 | HHI.PR ---
Subjective Remarks He is better today .Remains Off BiPAP and on N/C 3 L. NG is in and Drains.No active GI bleed. Abdomen is distended Objective Vital Signs Date Time Temp Pulse Resp B/P (MAP) Pulse Ox O2 Delivery O2 Flow Rate FiO2 07/06/17 18:00 93 07/06/17 16:00 98.2 74 16 133/75 (94) 98 07/06/17 16:00 91 07/06/17 14:00 84 07/06/17 12:00 79 07/06/17 12:00 98.6 79 33 133/75 (94) 99 07/06/17 10:00 91 07/06/17 08:35 98 Nasal Cannula 2.00 07/06/17 08:00 98.3 97 35 142/76 (98) 97 07/06/17 08:00 90 07/06/17 07:00 96 Nasal Cannula 6.00 07/06/17 06:00 79 07/06/17 04:00 84 07/06/17 04:00 99.1 84 20 117/80 (92) 96 07/06/17 02:00 103 07/06/17 00:00 99.2 81 17 108/62 (77) 96 07/06/17 00:00 81 07/05/17 22:00 106 07/05/17 20:00 87 07/05/17 20:00 99.3 87 20 130/68 (88) 97 07/05/17 19:27 99 Nasal Cannula 2.50 I/O 07/05/17 07/05/17 07/05/17 07/06/17 07/06/17 07/06/17 07:00 15:00 23:00 07:00 15:00 23:00 Intake Total 400 ml Output Total 310 ml 2000 ml 650 ml 675 ml Balance -310 ml -2000 ml -650 ml -275 ml Intake Oral 400 ml Output Urine Total 300 ml 1800 ml 600 ml 475 ml Stool Total 10 ml 200 ml 50 ml 200 ml Result Diagram: 07/06/1780407/06/17804 Objective Remarks The patient is a 51 year-old male, lying in bed, in no respiratory distress. HEENT: Atraumatic, normocephalic. Pupils equal, round and reactive to light and accommodation. Conjunctivae pink. Nonicteric sclerae. Oral mucosa dry Neck: Supple. No JVD, adenopathy, thyromegaly. Trachea midline. Cardiovascular: Regular rate and rhythm. Normal S1-S2. No murmurs, rubs or gallops noted. Pulmonary exam: Bilateral wheezing.Occ basal Crackles. Abdomen: Moderate distension. No Mass. Positive bowel sounds. Extremities: No cyanosis, clubbing and edema. Neuro: No focal deficit Assessment and Plan Assessment and Plan IMPRESSION: 1. Altered mental status. 2. ETOH abuse. 3. Anemia, status post EGD. 4. Thrombocytopenia secondary to liver disease. 5. Elevated AST. 6. Elevated ammonia level. 7. History of GERD and Menendez's esophagus. 8. Aspiration Pneumonia Plan : 1. Continue NG to suction. 2. Continue antibiotics , Zosyn /Vancomycin/Flagyl. 3. Nebs qid , Duoneb. 4. IS at bedside q2h 5. CXR, CBC,BMP AM. 6. Continue IV Fluids for hydration Miesha Horan MD Jul 06, 2017 19:27
[2017-07-07] VITALS (14 sets, daily range): BP systolic 119–136; BP diastolic 63–78; PULSE 68–85; RESP 22–30; TEMP 98.1–98.9; O2SAT 95–98
[2017-07-07] MEDS: PIPERACIL-TAZO 3.375 GM PREMIX 50 ML IV SCH ×3 (00:19→16:35)
[2017-07-07] MEDS: VANCOMYCIN INJ 2,000 MG in SODIUM CHLORID 0.9% 500 ML INJ 500 ML IV SCH ×2 (01:02→13:10)
[2017-07-07] MEDS: INSULIN NovoLIN REGULAR SUPPLEMENTAL SCALE SQ SCH ×6 (02:00→22:00)
[2017-07-07] MEDS: METOCLOPRAMIDE HCL 10 MG/2 ML VIAL IV PUSH SCH ×3 (05:37→22:57)
[2017-07-07] MEDS: cloNIDine HCL 0.2 MG TAB PO SCH ×3 (05:37→22:57)
--- NOTE | 2017-07-07 05:44 | RADRPT ---
EXAM DATE/TIME: 07/07/2017 04:56 [facility] COMPARISON: ABDOMEN KUB ONLY, July 06, 2017, 4:49. INDICATIONS : Ileus. Abdominal pain. MEDICAL HISTORY : Carcinoma, esophageal. SURGICAL HISTORY : None. ENCOUNTER: Subsequent ACUITY: 1 week PAIN SCORE: 0/10 LOCATION: Bilateral abdomen FINDINGS: Segments of mild to moderate distended small and large bowel again seen without significant change. R ectal tube is present. No free air. No gastric distention. CONCLUSION: No significant change mild to moderate bowel distention. Nikko Owen MD on July 07, 2017 at 5:41 Board Certified Radiologist. This report was verified electronically.
[2017-07-07 06:08] LABS: AUTOMATED NEUTROPHIL # 3.1 TH/MM3 (1.8-7.7); BASOPHIL # 0.1 TH/MM3 (0-0.2); BASOPHIL % 1.2 % (0.0-2.0); EOSINOPHIL # 0.2 TH/MM3 (0-0.4); EOSINOPHIL % 3.4 % (0.0-4.0); HEMATOCRIT 31.1 % (39.0-51.0); HEMOGLOBIN 10.2 GM/DL (13.0-17.0); LYMPH % 19.2 % (9.0-44.0); LYMPHOCYTE # 0.9 TH/MM3 (1.0-4.8); MEAN CELL VOLUME 105.8 FL (80.0-100.0); MEAN CORPUSCULAR HEMOGLOBIN 34.7 PG (27.0-34.0); MEAN CORPUSCULAR HGB CONC 32.8 % (32.0-36.0); MONO % 11.4 % (0.0-8.0); MONOCYTE # 0.5 TH/MM3 (0-0.9); NEUT % 64.8 % (16.0-70.0); PLATELET COUNT 109 TH/MM3 (150-450); RED BLOOD COUNT 2.94 MIL/MM3 (4.50-5.90); RED CELL DISTRIBUTION WIDTH 17.2 % (11.6-17.2); WHITE BLOOD COUNT 4.7 TH/MM3 (4.0-11.0)
[2017-07-07 06:40] LABS: BICARBONATE 22.9 MEQ/L (21.0-32.0); CREATININE 0.73 MG/DL (0.60-1.30)
[2017-07-07] MEDS: POTASSIUM CHLOR 20 MEQ PREMIX 100 ML IV PRN ×4 (06:56→15:05)
[2017-07-07] MEDS: RESP: ALBUTEROL 2.5 MG/IPRATROPIUM 0.5 MG NEB (SCH) NEB ×3 (08:12→19:48)
[2017-07-07] MEDS: LACTULOSE SYRUP 20 GM/30 ML CUP PO SCH ×3 (08:20→17:50)
[2017-07-07] MEDS: PANTOPRAZOLE SODIUM 40 MG VIAL IV SCH ×2 (08:20→21:03)
[2017-07-07] MEDS: NICOTINE 14 MG/24 HR PATCH T-DERMAL SCH (08:20)
[2017-07-07] MEDS: SODIUM CHLORIDE 0.9% FLUSH 10 ML FLUSH IV FLUSH SCH ×2 (08:20→21:03)
[2017-07-07] MEDS: metroNIDAZOLE 500 MG INJ 100 ML IV SCH ×3 (08:21→16:35)
[2017-07-07] MEDS: THIAMINE HCL 100 MG TAB PO SCH (08:21)
[2017-07-07] MEDS: REMOVE OLD PATCH T-DERMAL SCH (08:21)
[2017-07-07] MEDS: DOCUSATE SODIUM 50 MG/SENNA 8.6 MG TAB PO SCH ×2 (08:21→21:03)
[2017-07-07] MEDS: guaiFENesin E.R. 600 MG TAB PO SCH ×2 (08:21→21:03)
[2017-07-07] MEDS: RIFAXIMIN 550 MG TAB PO SCH ×2 (08:21→21:03)
[2017-07-07] MEDS: POLYETHYLENE GLYCOL 17 GM PKG PO SCH (08:21)
--- NOTE | 2017-07-07 08:25 | HHI.PR ---
Subjective Remarks f/u; DT's in no acute distress. some what lethargic- noted that is on restraints. no fever. had on and off agitation. d/w the RN and . Objective Vitals Vital Signs Date Time Temp Pulse Resp B/P (MAP) Pulse Ox O2 Delivery O2 Flow Rate FiO2 07/07/17 08:12 98 Nasal Cannula 2.00 07/07/17 06:00 84 07/07/17 04:00 98.3 71 26 121/66 (84) 97 07/07/17 04:00 71 07/07/17 02:00 74 07/07/17 00:00 74 07/07/17 00:00 98.1 74 28 119/63 (81) 95 07/06/17 22:00 82 07/06/17 20:00 97.9 94 24 133/75 (94) 97 07/06/17 20:00 90 07/06/17 19:37 94 Nasal Cannula 2.00 07/06/17 19:00 90 Nasal Cannula 6.00 07/06/17 18:00 93 07/06/17 16:00 98.2 74 16 133/75 (94) 98 07/06/17 16:00 91 07/06/17 14:00 84 07/06/17 12:00 79 07/06/17 12:00 98.6 79 33 133/75 (94) 99 07/06/17 10:00 91 07/06/17 08:35 98 Nasal Cannula 2.00 I/O 07/06/17 07/06/17 07/06/17 07/07/17 07/07/17 07/07/17 07:00 15:00 23:00 07:00 15:00 23:00 Intake Total 400 ml 1490 ml Output Total 650 ml 675 ml 950 ml Balance -650 ml -275 ml 540 ml Intake Oral 400 ml 720 ml IV Total 770 ml Output Urine Total 600 ml 475 ml 350 ml Stool Total 50 ml 200 ml 600 ml Result Diagram: 07/07/17 0537 07/07/17536 Imaging Last Impressions Abdomen X-Ray 07/07/17 06 Signed Impressions: Service Date/Time: Friday, July 07, 2017 04:56 - CONCLUSION: No significant change mild to moderate bowel distention. Nikko Owen MD Chest CT 07/05/17 1635 Signed Impressions: Service Date/Time: Wednesday, July 05, 2017 18:11 - CONCLUSION: 1. Segmental consolidation with volume loss medial right lower lung. 2. Atelectasis or basilar consolidation left lower lung. 3. Mild amount of ascites. Caesar Ann MD Chest X-Ray 07/05/17 0000 Signed Impressions: Service Date/Time: Wednesday, July 05, 2017 11:05 - CONCLUSION: 1. No acute cardiopulmonary findings. 2. NG tube in satisfactory position. Franc Nelson MD Abdomen MRI 07/02/17 0000 Signed Impressions: Service Date/Time: June 16:34 - CONCLUSION: 1. Hepatomegaly and hepatic steatosis. No focal mass identified. 2. Moderate splenomegaly. 3. Small amount of ascites. 4. Small bilateral pleural effusions. Wilbert Howe MD Ankle X-Ray 07/01/17 0000 Signed Impressions: Service Date/Time: Saturday, July 01, 2017 10:22 - CONCLUSION: Soft tissue mass noted to be fluid filled on ultrasound 09/10/2012. Colten Nelson MD FACR Head CT 06/30/17 0000 Signed Impressions: Service Date/Time: Saturday, July 01, 2017 02:24 - CONCLUSION: 1. No acute intracranial abnormalities. Previous fixation left maxillary sinus. Albert Walden MD Cervical Spine CT 06/30/17 0000 Signed Impressions: Service Date/Time: Saturday, July 01, 2017 02:24 - CONCLUSION: Normal examination for a patient of this age. Albert Walden MD Abdomen/Pelvis CT 06/29/17 0000 Signed Impressions: Service Date/Time: Thursday, June 29, 2017 12:52 - CONCLUSION: 1. Hepatosplenomegaly and varices noted as above. 2. Atherosclerosis. 3. Abnormal diffuse heterogeneous appearance of the liver which may be related to either marked hepatic steatosis in an inhomogeneous fashion versus steatosis and underlying diffuse liver masses. An MRI of the abdomen with and without contrast may be helpful for further evaluation of this finding. Navjot Chirinos MD Objective Remarks GENERAL: somewhat lethargic- CARDIOVASCULAR: Regular rate and regular rhythm without murmurs, gallops, or rubs. RESPIRATORY: mild diffuse wheezing with occasional cough GASTROINTESTINAL: Abdomen soft, non-tender, distended. Normal, active bowel sounds MUSCULOSKELETAL: Extremities without clubbing, cyanosis, or edema. NEURO: mildly lethargic but easily arousable Procedures 06/30/17 EGD Medications and IVs Current Medications Sodium Chloride (NS Flush) 2 ml UNSCH PRN IV FLUSH FLUSH AFTER USING IV ACCESS ; Start 06/29/17 at 11:00; Stop 06/29/17 at 15:56; Status DC Iohexol (Omnipaque 350 Inj) 92 ml STK-MED ONCE IVCONTRAST Last administered on 06/29/17 10:21; Start 06/29/17 at 10:21; Stop 06/29/17 at 13:05; Status DC Octreotide Acetate (SandoSTATIN INJ) 100 mcg ONCE ONCE IV PUSH Last administered on 06/29/17 14:31; Start 06/29/17 at 14:15; Stop 06/29/17 at 14:27 ; Status DC Pantoprazole Sodium (Protonix Inj) 80 mg ONCE ONCE IV PUSH Last administered on 06/29/17 14:31; Start 06/29/17 at 14:15; Stop 06/29/17 at 14:27; Status DC Clonidine (Catapres) 0.1 mg Q4H PRN PO SBP>160, DBP>90; Start 06/29/17 at 16:00 Sodium Chloride 1,000 ml @ 100 mls/hr Q10H IV Last administered on 06/30/17 12:00; Start 06/29/17 at 16:00; Stop 06/30/17 at 17:09; Status DC Sodium Chloride (NS Flush) 2 ml UNSCH PRN IV FLUSH FLUSH AFTER USING IV ACCESS ; Start 06/29/17 at 16:00 Sodium Chloride (NS Flush) 2 ml BID IV FLUSH Last administered on 07/06/17 20: 57; Start 06/29/17 at 21:00 Acetaminophen (Tylenol) 650 mg Q4H PRN PO TEMP > 100.4; Start 06/29/17 at 15:15 Ondansetron HCl (Zofran Inj) 4 mg Q6H PRN IVP NAUSEA OR VOMITING Last administered on 07/03/17 17:20; Start 06/29/17 at 15:15 Prochlorperazine (Compazine Supp) 25 mg Q12H PRN RECTAL NAUSEA OR VOMITING; Start 06/29/17 at 15:15 Acetaminophen (Tylenol) 650 mg Q6H PRN PO PAIN SCALE 1 TO 2 Last administered on 06/30/17 04:52; Start 06/29/17 at 15:15 Morphine Sulfate (Morphine Inj) 2 mg Q3H PRN IV PUSH Pain 3-5; if unable to take PO; Start 06/29/17 at 16:00 Morphine Sulfate (Morphine Inj) 4 mg Q3H PRN IV PUSH Pain 6-10;if unable to take PO; Start 06/29/17 at 16:00 Tramadol HCl (Ultram) 50 mg Q4H PRN PO PAIN SCALE 3 TO 5 Last administered on 07/05/17 08:26; Start 06/29/17 at 16:00 Tramadol HCl (Ultram) 100 mg Q4H PRN PO PAIN SCALE 6 TO 10 Last administered on 07/06/17 00:00; Start 06/29/17 at 16:00 Naloxone HCl (Narcan Inj) 0.4 mg UNSCH PRN IV PUSH SEE LABEL COMMENTS; Start at 16:00 Senna/Docusate Sodium (Brittany-Colace) 1 tab BID PO Last administered on 20:58; Start 06/29/17 at 21:00 Magnesium Hydroxide (Milk Of Magnesia Liq) 30 ml Q12H PRN PO MILD - MODERATE CONSTIPATION; Start 06/29/17 at 15:15 Sennosides (Senokot) 17.2 mg Q12H PRN PO MODERATE - SEVERE CONSTIPATION; Start 06/29/17 at 15:15 Bisacodyl (Dulcolax Supp) 10 mg DAILY PRN RECTAL SEVERE CONSITIPATION; Start at 15:15 Lactulose (Lactulose Liq) 30 ml DAILY PRN PO SEVERE CONSITIPATION; Start at 15:15 Flumazenil (Romazicon Inj) 0.2 mg Q1M PRN IV PUSH SEE LABEL COMMENTS; Start at 16:00 Lorazepam (Ativan) 1 mg Q4H PRN PO CIWA 8 - 10 Last administered on 06/30/17 09:32; Start 06/29/17 at 16:00 Lorazepam (Ativan Inj) 1 mg Q4H PRN IV PUSH CIWA 8 - 10 Last administered on 14:40; Start 06/29/17 at 16:00 Lorazepam (Ativan) 2 mg Q2H PRN PO CIWA 11-14; Start 06/29/17 at 16:00 Lorazepam (Ativan Inj) 2 mg Q2H PRN IV PUSH CIWA 11-14 Last administered on 19:33; Start 06/29/17 at 16:00 Lorazepam (Ativan Inj) 2 mg Q1H PRN IV PUSH CIWA 15-20; Start 06/29/17 at 16:00 Lorazepam (Ativan Inj) 2 mg Q15M PRN IV PUSH CIWA > 20 Last administered on 02:48; Start 06/29/17 at 16:00 Haloperidol Lactate (Haldol Inj) 2 mg Q15M PRN IM SEE LABEL COMMENTS Last administered on 07/06/17 01:12; Start 06/29/17 at 16:00 Sodium Chloride (NS Flush) 2 ml UNSCH PRN IV FLUSH FLUSH AFTER USING IV ACCESS ; Start 06/29/17 at 15:15; Status UNV Sodium Chloride (NS Flush) 2 ml BID IV FLUSH ; Start 06/29/17 at 21:00; Status UNV Folic Acid (Folate) 1 mg DAILY PO Last administered on 07/04/17 10:08; Start 06/29/17 at 16:00; Stop 07/04/17 at 15:59; Status DC Thiamine HCl (Vitamin B1) 100 mg DAILY PO Last administered on 07/06/17 09:01 ; Start 06/29/17 at 16:00; Status Future hold Multivitamins/ Minerals Therapeutic (Theragran M Tab) 1 tab DAILY PO Last administered on 07/04/17 10:08; Start 06/29/17 at 16:00; Stop 07/04/17 at 15:59 ; Status DC Clonidine (Catapres) 0.1 mg Q6H PRN PO SEE LABEL COMMENTS; Start 06/29/17 at 16 :00 Sodium Chloride (NS Flush) 2 ml UNSCH PRN IV FLUSH FLUSH AFTER USING IV ACCESS ; Start 06/29/17 at 15:15; Status UNV Sodium Chloride (NS Flush) 2 ml BID IV FLUSH ; Start 06/29/17 at 21:00; Status UNV Pantoprazole Sodium (Protonix Inj) 40 mg BID IV Last administered on 07/06/17 20:57; Start 06/29/17 at 21:00 Albuterol/ Ipratropium (Duoneb Neb) 1 ampule Q4HR NEB PRN NEB sob; Start at 15:30; Stop 07/01/17 at 07:05; Status DC Guaifenesin (Mucinex Er) 600 mg BID PO Last administered on 07/06/17 20:57; Start 06/29/17 at 21:00 Nicotine (Habitrol 14 Mg Patch.24 Hr) 1 patch ONCE ONCE T-DERMAL Last administered on 06/29/17 18:04; Start 06/29/17 at 16:00; Stop 06/29/17 at 16:01 ; Status DC Nicotine (Habitrol 14 Mg Patch.24 Hr) 1 patch DAILY T-DERMAL Last administered on 07/06/17 09:02; Start 06/30/17 at 09:00 Miscellaneous Information 1 DAILY T-DERMAL Last administered on 07/06/17 09:00 ; Start 06/30/17 at 09:00 Rifaximin (Xifaxan) 550 mg BID PO Last administered on 07/06/17 20:58; Start 06/30/17 at 11:45 Lactulose (Lactulose Liq) 30 ml BID PO Last administered on 07/06/17 09:02; Start 06/30/17 at 21:00; Stop 07/06/17 at 15:21; Status DC Miscellaneous Information ALL NURSING DEPARTME... UNSCH PRN .XX SEE LABEL COMMENTS; Start 06/30/17 at 12:56; Stop 07/01/17 at 12:55; Status DC Chlordiazepoxide (Librium) 50 mg Q6H PO Last administered on 07/04/17 10:08; Start 06/30/17 at 16:00; Stop 07/04/17 at 16:15; Status DC Dexmedetomidine HCl 200 mcg/ Sodium Chloride 50 ml @ 4.86 mls/hr TITRATE PRN IV Desired RASS; Start 06/30/17 at 16:00; Stop 06/30/17 at 16:25; Status DC Dexmedetomidine HCl 1000 mcg/ Sodium Chloride 250 ml @ 4.86 mls/hr TITRATE PRN IV Desired RASS Last administered on 07/01/17 09:03; Start 06/30/17 at 16: 30; Stop 07/03/17 at 09:48; Status DC Dextrose/Sodium Chloride 1,000 ml @ 84 mls/hr [id number] IV Last administered on 07/03/17 04:36; Start 06/30/17 at 17:15; Stop 07/03/17 at 09:48; Status DC Dextrose (D50w (Vial) Inj) 50 ml UNSCH PRN IV PUSH HYPOGLYCEMIA-SEE COMMENTS; Start 06/30/17 at 17:15 Glucagon (Glucagon Inj) 1 mg UNSCH PRN OTHER HYPOGLYCEMIA-SEE COMMENTS; Start 06/30/17 at 17:15 Insulin Human Regular (NovoLIN R SUPPLEMENTAL SCALE) 1 Q4H SQ ; Start 06/30/17 at 18:00 Albuterol/ Ipratropium (Duoneb Neb) 1 ampule Q2HR NEB PRN NEB sob Last administered on 07/03/17 23:32; Start 07/01/17 at 07:15; Stop 07/04/17 at 16:21 ; Status DC Thiamine HCl 100 mg/Sodium Chloride 101 ml @ 101 mls/hr DAILY IV Last administered on 07/03/17 09:12; Start 07/01/17 at 09:00; Stop 07/04/17 at 08:59 ; Status DC Albuterol/ Ipratropium (Duoneb Neb) 1 ampule Q6HR NEB NEB Last administered on 07/04/17 09:47; Start 07/01/17 at 10:00; Stop 07/04/17 at 14:52; Status DC Potassium Chloride (KCl) 80 meq ONCE ONCE PO Last administered on 07/01/17 09 :00; Start 07/01/17 at 07:15; Stop 07/01/17 at 07:37; Status DC Potassium Chloride 100 ml @ 50 mls/hr Q2H PRN IV For Potassium 2.8 - 3.2 mEq/L ; Start 07/01/17 at 09:30 Potassium Chloride 100 ml @ 50 mls/hr Q2H PRN IV For Potassium 2.8 - 3.2 mEq/ L Last administered on 07/07/17 06:56; Start 07/01/17 at 09:30 Potassium Bicarb/ Potassium Chloride (K-Lyte Cl Eff) 50 meq UNSCH PRN PO For Potassium 3.3 - 3.5 mEq/L Last administered on 07/01/17 17:53; Start 07/01/17 at 09:30 Potassium Chloride 100 ml @ 25 mls/hr UNSCH PRN IV For Potassium 3.3 - 3.5 mEq /L; Start 07/01/17 at 09:30 Potassium Chloride 100 ml @ 50 mls/hr Q2H PRN IV For Potassium 3.3 - 3.5 mEq/ L Last administered on 07/04/17 18:26; Start 07/01/17 at 09:30 Magnesium Sulfate 4 gm/Sodium Chloride 100 ml @ 50 mls/hr UNSCH PRN IV For Magnesium 0.9 - 1.1 mg/dL; Start 07/01/17 at 09:30 Magnesium Oxide (Mag-Ox) 800 mg UNSCH PRN PO For Magnesium 1.2 - 1.6 mg/dL; Start 07/01/17 at 09:30 Magnesium Sulfate 2 gm/Sodium Chloride 100 ml @ 50 mls/hr UNSCH PRN IV For Magnesium 1.2 - 1.6 mg/dL; Start 07/01/17 at 09:30 Potassium Phosphate (K-Phos) 2,000 mg Q4H PRN PO For Phosphorus < 2.5 mg/dL; Start 07/01/17 at 09:30 Sodium Phosphate 30 mmol/Sodium Chloride 250 ml @ 42 mls/hr UNSCH PRN IV For Phosphorus < 2.5 mg/dL; Start 07/01/17 at 09:30 Potassium Phosphate (K-Phos) 2,000 mg UNSCH PRN PO/TUBE SEE LABEL COMMENTS; Start 07/01/17 at 09:30 Potassium Phosphate 30 mmol/ Sodium Chloride 260 ml @ 42 mls/hr UNSCH PRN IV SEE LABEL COMMENTS; Start 07/01/17 at 09:30 Lidocaine HCl (Xylocaine-Mpf 1% Inj) 5 ml STK-MED ONCE OTHER ; Start 06/30/17 at 12:00; Stop 07/01/17 at 15:24; Status DC Propofol (Diprivan 200 Mg/20 ml Inj) 400 mg STK-MED ONCE IV ; Start 06/30/17 at 12:00; Stop 07/01/17 at 15:24; Status DC Metoclopramide HCl (Reglan Inj) 10 mg Q8HR IV PUSH Last administered on 05:37; Start 07/02/17 at 09:00 Polyethylene Glycol (Miralax) 17 gm DAILY PO Last administered on 07/06/17 09: 02; Start 07/02/17 at 09:00 Gadodiamide (Omniscan Pf Inj) 19 ml STK-MED ONCE IVCONTRAST Last administered on 07/02/17 17:13; Start 07/02/17 at 17:13; Stop 07/02/17 at 17:14; Status DC Sodium Biphosphate/ Sodium Phosphate (Fleets Enema (Adult)) 133 ml ONCE ONCE RECTAL Last administered on 07/03/17 17:23; Start 07/03/17 at 17:00; Stop at 17:01; Status DC Furosemide (Lasix Inj) 40 mg NOW ONCE IV PUSH Last administered on 07/03/17 19:20; Start 07/03/17 at 19:15; Stop 07/03/17 at 19:16; Status DC Dexmedetomidine HCl 200 mcg/ Sodium Chloride 52 ml @ 5 mls/hr TITRATE PRN IV SEDATION Last administered on 07/04/17 05:45; Start 07/03/17 at 22:00; Stop at 16:18; Status DC Acetylcysteine (Mucomyst 10% Neb) 2 ml Q6HR NEB NEB Last administered on 07:44; Start 07/04/17 at 04:00; Stop 07/05/17 at 14:10; Status DC Vancomycin HCl 1000 mg/Sodium Chloride 250 ml @ 250 mls/hr ONCE ONCE IV ; Start 07/04/17 at 08:30; Stop 07/04/17 at 09:29; Status UNV Pharmacy Profile Note 0 ml @ 0 mls/hr UNSCH OTHER ; Start 07/04/17 at 08:30 Piperacillin Sod/ Tazobactam Sod 50 ml @ 100 mls/hr Q8H IV Last administered on 07/07/17 00:19; Start 07/04/17 at 09:00 Sodium Chloride 1,000 ml @ 60 mls/hr [id number] IV Last administered on 10:06; Start 07/04/17 at 08:30; Stop 07/04/17 at 16:18; Status DC Vancomycin HCl 1700 mg/Sodium Chloride 517 ml @ 250 mls/hr Q12H IV Last administered on 07/05/17 23:08; Start 07/04/17 at 11:00; Stop 07/06/17 at 11:38 ; Status DC Miscellaneous Information SPECIFIC LAB TO BE DRAWN:VANCOMY... ONCE ONCE .XX ; Start 07/05/17 at 22:45; Stop 07/05/17 at 22:46; Status DC Metronidazole 100 ml @ 100 mls/hr Q8H IV Last administered on 07/06/17 23:29 ; Start 07/04/17 at 16:00 Albuterol/ Ipratropium (Duoneb Neb) 1 ampule Q6HR WHILE AWAKE NEB NEB Last administered on 07/04/17 15:21; Start 07/04/17 at 20:00; Stop 07/04/17 at 20:00 ; Status DC Furosemide (Lasix Inj) 40 mg ONCE ONCE IV PUSH Last administered on 07/04/17 15:36; Start 07/04/17 at 15:30; Stop 07/04/17 at 15:31; Status DC Furosemide (Lasix Inj) 40 mg STK-MED ONCE .ROUTE ; Start 07/04/17 at 15:19; Stop 07/04/17 at 15:20; Status DC Diltiazem HCl (Cardizem Inj) 10 mg ONCE ONCE IV Last administered on 16:07; Start 07/04/17 at 16:00; Stop 07/04/17 at 16:02; Status DC Diltiazem HCl (Cardizem Inj) 25 mg STK-MED ONCE .ROUTE ; Start 07/04/17 at 16:00 ; Stop 07/04/17 at 16:01; Status DC Chlordiazepoxide (Librium) 25 mg Q12H PO Last administered on 07/06/17 02:31; Start 07/05/17 at 04:00; Stop 07/06/17 at 10:08; Status DC Albuterol/ Ipratropium (Duoneb Neb) 1 ampule Q4HR NEB NEB ; Start 07/04/17 at 20:00; Stop 07/05/17 at 06:22; Status DC Albuterol/ Ipratropium (Duoneb Neb) 1 ampule Q2HR NEB PRN NEB SHORTNESS OF BREATH Last administered on 07/05/17 19:25; Start 07/04/17 at 16:15 Clonidine (Catapres) 0.2 mg Q8HR PO Last administered on 07/07/17 05:37; Start 07/04/17 at 22:00 Diltiazem HCl (Cardizem Inj) 10 mg ONCE ONCE IV Last administered on 16:22; Start 07/04/17 at 16:15; Stop 07/04/17 at 16:20; Status DC Albuterol/ Ipratropium (Duoneb Neb) 1 ampule Q6HR WHILE AWAKE NEB NEB Last administered on 07/07/17 08:12; Start 07/04/17 at 20:00 Bumetanide (Bumex Inj) 1 mg ONCE ONCE IV PUSH Last administered on 07/05/17 12:35; Start 07/05/17 at 11:30; Stop 07/05/17 at 11:31; Status DC Chlordiazepoxide (Librium) 25 mg DAILY PO ; Start 07/07/17 at 09:00 Vancomycin HCl 2000 mg/Sodium Chloride 520 ml @ 257.5 mls/ hr Q12H IV Last administered on 07/07/17 01:02; Start 07/06/17 at 13:00 Miscellaneous Information SPECIFIC LAB TO BE ... ONCE ONCE .XX ; Start 07/08 at 12:45; Stop 07/08/17 at 12:46 Lactulose (Lactulose Liq) 30 ml TID PO Last administered on 07/06/17 17:40; Start 07/06/17 at 18:00 A/P Assessment and Plan A/P EtOH withdrawal Alcohol dependence History of depression/anxiety Currently on [facility] protocol. continue Librium Continue Thiamine 100mg daily CT brain 07/01 revealed no acute intracranial findings. Patient with history of right zygomatic/maxillary sinus surgery 2016 CT C-spine 07/01 negative findings Tramadol 50-100 mg every 4 hours as needed pain Atherosclerotic vascular disease Dyslipidemia Hypertension Monitor HR and BP keep MAP>65mmHg On Clonidine 0.2mg Q8 for BP control Possible Aspiration pneumonia Tobaccoism History of asthma/reactive airway disease Continue with oxygen keep sat> 92% Bronchodilators continue IV antibiotics Currently on nicotine patch at 14 mg daily. 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 Likely esophagitis/Menendez' s not biopsied. Pantoprazole 40 mg IV daily for GI prophylaxis continue Lactulose and Xifaxan . CT abdomen/pelvis revealed splenomegaly 19.3 cm. varices at the esophageal hiatus, gastric ligament and left upper quadrant. Renal splenic shunt appreciated. MRI abdomen showed Hepatomegaly and hepatic steatosis. No focal mass identified. Moderate splenomegaly. Small amount of ascites.Small bilateral pleural effusions. Liver workup including JOSE, ASMA, Hep profile all negative Elevated TSH 6.7. History of gout Sliding-scale insulin Novulin R every 4 hrs for maintain euglycemia hypokalemia Monitor renal function, I/O's, electrolytes replacement per protocol. Will need K replacement today Macrocytic anemia Thrombocytopenia chronic likely secondary to underlying EtOH /cirrhotic liver disease-(improving) Monitor CBC/coags No signs of hemolysis/consumption thrombocytopenia. This appears to be a chronic condition Right ankle pain X-ray right ankle rule out fracture-Soft tissue mass noted to be fluid filled on ultrasound 09/10/2012. No acute fracture PT evaluate and treat Prophylaxis - GI - pantoprazole - DVT - SCD/holding pharmacological prophylaxis in light of thrombocytopenia continue to monitor in ICU. d/w the RN and . Tyson Boyd MD Jul 07, 2017 08:25
[2017-07-07] MEDS ORDERED: chlordiazePOXIDE 25 MG CAP PO SCH (09:00)
--- NOTE | 2017-07-07 17:29 | HHI.GIFU ---
Subjective Remarks Pt resting in bed. Somnolent, does not rouse enough to answer questions. Brown liquid stool in bag. Objective Vitals I&O Vital Signs Date Time Temp Pulse Resp B/P (MAP) Pulse Ox O2 Delivery O2 Flow Rate FiO2 07/07/17 16:00 72 07/07/17 16:00 98.2 72 22 123/76 (92) 97 07/07/17 14:00 82 07/07/17 12:00 81 07/07/17 12:00 98.3 79 27 120/67 (84) 96 07/07/17 10:00 85 07/07/17 08:12 98 Nasal Cannula 2.00 07/07/17 08:00 68 07/07/17 08:00 97 Nasal Cannula 6.00 07/07/17 08:00 98.9 68 30 123/64 (83) 97 07/07/17 06:00 84 07/07/17 04:00 98.3 71 26 121/66 (84) 97 07/07/17 04:00 71 07/07/17 02:00 74 07/07/17 00:00 74 07/07/17 00:00 98.1 74 28 119/63 (81) 95 07/06/17 22:00 82 07/06/17 20:00 97.9 94 24 133/75 (94) 97 07/06/17 20:00 90 07/06/17 19:37 94 Nasal Cannula 2.00 07/06/17 19:00 90 Nasal Cannula 6.00 07/06/17 18:00 93 I/O 07/06/17 07/06/17 07/06/17 07/07/17 07/07/17 07/07/17 07:00 15:00 23:00 07:00 15:00 23:00 Intake Total 400 ml 1490 ml Output Total 650 ml 675 ml 950 ml Balance -650 ml -275 ml 540 ml Intake Oral 400 ml 720 ml IV Total 770 ml Output Urine Total 600 ml 475 ml 350 ml Stool Total 50 ml 200 ml 600 ml Laboratory Laboratory Tests Test 07/07/17 05:37 White Blood Count 4.7 Red Blood Count 2.94 Hemoglobin 10.2 Hematocrit 31.1 Mean Corpuscular Volume 105.8 Mean Corpuscular Hemoglobin 34.7 Mean Corpuscular Hemoglobin Concent 32.8 Red Cell Distribution Width 17.2 Platelet Count 109 Mean Platelet Volume 8.0 Neutrophils (%) (Auto) 64.8 Lymphocytes (%) (Auto) 19.2 Monocytes (%) (Auto) 11.4 Eosinophils (%) (Auto) 3.4 Basophils (%) (Auto) 1.2 Neutrophils # (Auto) 3.1 Lymphocytes # (Auto) 0.9 Monocytes # (Auto) 0.5 Eosinophils # (Auto) 0.2 Basophils # (Auto) 0.1 CBC Comment DIFF FINAL Differential Comment Blood Urea Nitrogen 18 Creatinine 0.73 Random Glucose 88 Calcium Level 8.0 Sodium Level 141 Potassium Level 3.0 Chloride Level 109 Carbon Dioxide Level 22.9 Anion Gap 9 Estimat Glomerular Filtration Rate 114 Date/Time Source Procedure Growth Status 07/04/17 13:00 Blood Peripheral Aerobic Blood Culture - Preliminary NO GROWTH IN 3 DAYS Resulted 07/04/17 13:00 Blood Peripheral Anaerobic Blood Culture - Preliminary NO GROWTH IN 3 DAYS Resulted 07/04/17 10:00 Sputum Expectorated Sputum Gram Stain - Final Complete 07/04/17 10:00 Sputum Expectorated Sputum Sputum Culture - Final HEAVY GROWTH NORMAL RESPIRATORY BRENNAN Complete 07/04/17 16:30 Urine Catheterized Urine Legionella Antigen - Final PRESUMPTIVE NEGATIVE FOR LEGIONELLA P... Complete 07/04/17 16:30 Urine Catheterized Urine Streptococcus pneumoniae Antigen (M - Final PRESUMPTIVE NEGATIVE FOR STREPTOCOCCU... Complete Imaging Last Impressions Abdomen X-Ray 07/07/17 0600 Signed Impressions: Service Date/Time: Friday, July 07, 2017 04:56 - CONCLUSION: No significant change mild to moderate bowel distention. Nikko Owen MD Chest CT 07/05/17 1635 Signed Impressions: Service Date/Time: Wednesday, July 05, 2017 18:11 - CONCLUSION: 1. Segmental consolidation with volume loss medial right lower lung. 2. Atelectasis or basilar consolidation left lower lung. 3. Mild amount of ascites. Caesar Ann MD Chest X-Ray 07/05/17 0000 Signed Impressions: Service Date/Time: Wednesday, July 05, 2017 11:05 - CONCLUSION: 1. No acute cardiopulmonary findings. 2. NG tube in satisfactory position. Franc Nelson MD Abdomen MRI 07/02/17 0000 Signed Impressions: Service Date/Time: June 16:34 - CONCLUSION: 1. Hepatomegaly and hepatic steatosis. No focal mass identified. 2. Moderate splenomegaly. 3. Small amount of ascites. 4. Small bilateral pleural effusions. Wilbert Howe MD Ankle X-Ray 07/01/17 0000 Signed Impressions: Service Date/Time: Saturday, July 01, 2017 10:22 - CONCLUSION: Soft tissue mass noted to be fluid filled on ultrasound 09/10/2012. Colten Nelson MD FACR Head CT 06/30/17 0000 Signed Impressions: Service Date/Time: Saturday, July 01, 2017 02:24 - CONCLUSION: 1. No acute intracranial abnormalities. Previous fixation left maxillary sinus. Albert Walden MD Cervical Spine CT 06/30/17 0000 Signed Impressions: Service Date/Time: Saturday, July 01, 2017 02:24 - CONCLUSION: Normal examination for a patient of this age. Albert Walden MD Abdomen/Pelvis CT 06/29/17 0000 Signed Impressions: Service Date/Time: Thursday, June 29, 2017 12:52 - CONCLUSION: 1. Hepatosplenomegaly and varices noted as above. 2. Atherosclerosis. 3. Abnormal diffuse heterogeneous appearance of the liver which may be related to either marked hepatic steatosis in an inhomogeneous fashion versus steatosis and underlying diffuse liver masses. An MRI of the abdomen with and without contrast may be helpful for further evaluation of this finding. Navjot Chirinos MD Physical Exam HEENT: Normocephalic; atraumatic; no jaundice. CHEST: Resp. even/unlabored, diminished CARDIAC: RRR ABDOMEN: semifirm, tympanic, distended, nontender; bowel sounds are hypoactive. Rectal tube in place with moderate amount of liquid brown stool. EXTREMITIES: No clubbing, cyanosis, or edema. SKIN: Normal; no rash; no jaundice. 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 Assessment and Plan Plan ASSESSMENT: - Questionable upper GI bleeding. Pt reports intermittent nausea/vomiting with dark emesis and occasional red blood and intermittent dark stools. Not actively bleeding. Of note, does report that he has had nose bleeds x 2 days. However, he does have evidence of liver cirrhosis and varcies on CT imaging. EGD/Colonoscopy (12/24/15)---> There was a 5 cm segment of suspected Menendez's esophagus found in the distal esophagus, multiple biopsies were performed, there was erythematous gastritis in the entire examined stomach; multiple biopsies were performed, normal duodenal mucosa in the bulb and second portion of the duodenum, retroflexion was performed and was normal; the colon mucosa was otherwise normal, retroflexed views revealed no abnormalities. Pathology with gastric antral mucosal biopsies with histopathologic features consistent with chemical gastropathy, as may bee seen with bile reflux, non-steroidal anti-inflammatory drugs or other drug induced disease negative for intestinal metaplasia and dysplasia, farhat stain negative for helicobacter. GE mucosal biopsies with chronic inflammatory gastric changes consistent with reflux exhibiting extensive intestinal metaplasia, negative for dysplasia. 1. 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 Gastropathy and mild gastritis 3. Moderate duodenitis 4. No active bleeding and no sign of old bleeding 5. Retroflexed views revealed no abnormalities PPI. No active bleeding. HH 11.3/34.3. - Ileus with worsening abdominal distention, pain. CT scan abdomen and pelvis ( 06/29/17)----> Hepatosplenomegaly and varices noted as above. Atherosclerosis. Abnormal diffuse heterogeneous appearance of the liver which may be related to either marked hepatic steatosis in an inhomogeneous fashion versus steatosis and underlying diffuse liver masses. An MRI of the abdomen with and without contrast may be helpful for further evaluation of this finding. Pt states this pain began after a hernia repair in July of 2016 and is intermittent at times, but usually more constant. S/P Fleets enema. KUB (07/06/17)---> No significant change bowel distention, probably indicative of mild ileus. Reglan, Miralax. Clinically, improved today. Abdomen softer, no n/v ( pulled out NGT last night). Will start clears - Liver cirrhosis/Elevated LFTs. Pt reports that he has been told that his liver was enlarged, but never told that he had liver cirrhosis. He continues to drink ETOH, stating [address] has findings of varcies, he has thrombocytopenia, coagulopathy, hypoalbuminemia, all of which support a dx of liver cirrhosis. MRI (07/02/17)---> hepatomegaly and hepatic steatosis, no focal mass identified. Moderate splenomegaly, small amount of of ascites. Small bilateral pleural effusion. Will check liver workup to r/o other underlying liver disease- JOSE negative, AMA <20.0, ASMA negative, AFP 4.6. ALpha 1 Antitrypsin 221, Ceruloplasmin 37, Ferritin 94, Iron saturation 14.0%. Hepatitis profile neg. This is likely related to ETOH. DF 6.0. MELD 13. - Menendez's Esophagus, GERD. Takes ranitidine as needed at home, has daily symptoms. EGD as above. PPI - Thrombocytopenia, Coagulopathy. Likely related to cirrhosis. - Anemia, macrocytic. HH stable, 10.5/32.3. Folate 17.2, B12 1711. - Hepatic encephalopathy,Ammonia 66 - ETOH abuse. DT precautions per attending. - Resp. Insufficiency/Asthma, per attending. - Depression, Hyperlipidemia. Per attending. 07/07/17-- abd distended, tympanitic. Moderate liquid stool in bag. KUB 07/07 shoes no significant change in gaseous distention. HH stable PLAN: - clears - Cont. Reglan - Cont. Miralax - Cont. Protonix - TID lactulose - Cont. Xifaxan - Monitor labs - Supportive care - PT seen and examined by Dr. Salgado and myself and this note is written on her behalf Dilcia Morel Jul 07, 2017 17:29
--- NOTE | 2017-07-07 19:18 | HHI.PR ---
Subjective Remarks He is better today .Remains on N/C 3 L. NG is out .No active GI bleed. Abdomen is less distended. Taking po Liquids Objective Vital Signs Date Time Temp Pulse Resp B/P (MAP) Pulse Ox O2 Delivery O2 Flow Rate FiO2 07/07/17 18:00 85 07/07/17 16:00 72 07/07/17 16:00 98.2 72 22 123/76 (92) 97 07/07/17 14:00 82 07/07/17 12:00 81 07/07/17 12:00 98.3 79 27 120/67 (84) 96 07/07/17 10:00 85 07/07/17 08:12 98 Nasal Cannula 2.00 07/07/17 08:00 68 07/07/17 08:00 97 Nasal Cannula 6.00 07/07/17 08:00 98.9 68 30 123/64 (83) 97 07/07/17 06:00 84 07/07/17 04:00 98.3 71 26 121/66 (84) 97 07/07/17 04:00 71 07/07/17 02:00 74 07/07/17 00:00 74 07/07/17 00:00 98.1 74 28 119/63 (81) 95 07/06/17 22:00 82 07/06/17 20:00 97.9 94 24 133/75 (94) 97 07/06/17 20:00 90 07/06/17 19:37 94 Nasal Cannula 2.00 I/O 07/06/17 07/06/17 07/06/17 07/07/17 07/07/17 07/07/17 07:00 15:00 23:00 07:00 15:00 23:00 Intake Total 400 ml 1490 ml 970 ml 970 ml Output Total 650 ml 675 ml 950 ml 1300 ml Balance -650 ml -275 ml 540 ml 970 ml -330 ml Intake Oral 400 ml 720 ml 720 ml IV Total 770 ml 970 ml 250 ml Output Urine Total 600 ml 475 ml 350 ml 600 ml Stool Total 50 ml 200 ml 600 ml 700 ml Result Diagram: 07/07/17 0537 07/07/17 0537 Objective Remarks The patient is a 51 year-old male, lying in bed, in no distress. HEENT: Atraumatic, normocephalic. Pupils equal, round and reactive to light and accommodation. Conjunctivae pink. Nonicteric sclerae. Oral mucosa dry Neck: Supple. No JVD, adenopathy, thyromegaly. Trachea midline. Cardiovascular: Regular rate and rhythm. Normal S1-S2. No murmurs, rubs or gallops noted. Pulmonary exam: Bilateral wheezing.No Crackles. Abdomen: Moderate distension. No Mass. Positive bowel sounds. Extremities: No cyanosis, clubbing or edema. Neuro: No focal deficit Assessment and Plan Assessment and Plan IMPRESSION: 1. Altered mental status. 2. ETOH abuse. 3. Anemia, status post EGD. 4. Thrombocytopenia secondary to liver disease. 5. Elevated AST. 6. Elevated ammonia level. 7. History of GERD and Menendez's esophagus. 8. Aspiration Pneumonia Plan : 1. PO diet as tolerated 2. Continue antibiotics . 3. Nebs qid , Duoneb. 4. IS at bedside q2h 5. CXR, CBC,BMP AM. 6. Transfer to [facility] Miesha Horan MD Jul 07, 2017 19:18
--- NOTE | 2017-07-07 20:28 | RADRPT ---
EXAM DATE/TIME: 07/07/2017 19:44 [place] COMPARISON: CT THORAX W/O CONTRAST, July 05, 2017, 18:11. CHEST SINGLE AP, July 05, 2017, 11:05. INDICATIONS : Infiltrate. MEDICAL HISTORY : Esophageal carcinoma. SURGICAL HISTORY : None. ENCOUNTER: Subsequent ACUITY: 1 day PAIN SCORE: 0/10 LOCATION: Bilateral chest FINDINGS: The heart size is normal. There some mild patchy density seen at the right base. Left lung appears gr ossly clear. A significant effusion is not clearly seen. CONCLUSION: Patchy consolidation or atelectasis at the right base. Nikko Mason MD on July 07, 2017 at 20:25 Board Certified Radiologist. This report was verified electronically.
[2017-07-08] VITALS (10 sets, daily range): BP systolic 101–130; BP diastolic 56–71; PULSE 72–97; RESP 20; TEMP 97.4–98.3; O2SAT 94–97
[2017-07-08] MEDS: metroNIDAZOLE 500 MG INJ 100 ML IV SCH ×3 (00:19→17:00)
[2017-07-08] MEDS: POTASSIUM CHLOR 20 MEQ PREMIX 100 ML IV PRN ×4 (00:19→06:53)
[2017-07-08] MEDS: PIPERACIL-TAZO 3.375 GM PREMIX 50 ML IV SCH ×3 (01:14→18:15)
[2017-07-08] MEDS: VANCOMYCIN INJ 2,000 MG in SODIUM CHLORID 0.9% 500 ML INJ 500 ML IV SCH ×2 (01:22→13:05)
[2017-07-08] MEDS: INSULIN NovoLIN REGULAR SUPPLEMENTAL SCALE SQ SCH ×6 (02:00→22:00)
[2017-07-08] MEDS: cloNIDine HCL 0.2 MG TAB PO SCH ×3 (06:45→22:17)
[2017-07-08] MEDS: METOCLOPRAMIDE HCL 10 MG/2 ML VIAL IV PUSH SCH ×3 (06:45→22:19)
--- NOTE | 2017-07-08 08:13 | HHI.PR ---
Subjective Remarks looks slightly better today although still with diffuse wheezing- however with no acute distress. remains afebrile. had one episode of emesis last night. d/w the RN and no other acute issues over night. Objective Vitals Vital Signs Date Time Temp Pulse Resp B/P (MAP) Pulse Ox O2 Delivery O2 Flow Rate FiO2 07/08/17 06:00 97 07/08/17 04:00 98.2 72 108/56 (73) 96 07/08/17 04:00 72 07/08/17 00:00 78 07/08/17 00:00 98.3 78 107/59 (75) 94 07/07/17 22:00 83 07/07/17 20:00 98.2 83 136/78 (97) 96 07/07/17 20:00 83 07/07/17 19:48 95 Nasal Cannula 2.00 07/07/17 19:00 95 Nasal Cannula 2.00 07/07/17 18:00 85 07/07/17 16:00 72 07/07/17 16:00 98.2 72 22 123/76 (92) 97 07/07/17 14:00 82 07/07/17 12:00 81 07/07/17 12:00 98.3 79 27 120/67 (84) 96 07/07/17 10:00 85 07/07/17 08:12 98 Nasal Cannula 2.00 I/O 07/07/17 07/07/17 07/07/17 07/08/17 07/08/17 07/08/17 07:00 15:00 23:00 07:00 15:00 23:00 Intake Total 1490 ml 970 ml 970 ml 240 ml Output Total 950 ml 1300 ml 1600 ml Balance 540 ml 970 ml -330 ml -1360 ml Intake Oral 720 ml 720 ml 240 ml IV Total 770 ml 970 ml 250 ml Output Urine Total 350 ml 600 ml 700 ml Stool Total 600 ml 700 ml 900 ml Result Diagram: 07/07/17 0537 07/07/17 2317 Imaging Last Impressions Abdomen X-Ray 07/07/17 06 Signed Impressions: Service Date/Time: Friday, July 07, 2017 04:56 - CONCLUSION: No significant change mild to moderate bowel distention. Nikko Owen MD Chest X-Ray 07/07/17 0000 Signed Impressions: Service Date/Time: Friday, July 07, 2017 19:44 - CONCLUSION: Patchy consolidation or atelectasis at the right base. Nikko Mason MD Chest CT 07/05/17 1635 Signed Impressions: Service Date/Time: Wednesday, July 05, 2017 18:11 - CONCLUSION: 1. Segmental consolidation with volume loss medial right lower lung. 2. Atelectasis or basilar consolidation left lower lung. 3. Mild amount of ascites. Caesar Ann MD Abdomen MRI 07/02/17 0000 Signed Impressions: Service Date/Time: June 16:34 - CONCLUSION: 1. Hepatomegaly and hepatic steatosis. No focal mass identified. 2. Moderate splenomegaly. 3. Small amount of ascites. 4. Small bilateral pleural effusions. Wilbert Howe MD Ankle X-Ray 07/01/17 0000 Signed Impressions: Service Date/Time: Saturday, July 01, 2017 10:22 - CONCLUSION: Soft tissue mass noted to be fluid filled on ultrasound 09/10/2012. Colten Nelson MD FACR Head CT 06/30/17 0000 Signed Impressions: Service Date/Time: Saturday, July 01, 2017 02:24 - CONCLUSION: 1. No acute intracranial abnormalities. Previous fixation left maxillary sinus. Albert Walden MD Cervical Spine CT 06/30/17 0000 Signed Impressions: Service Date/Time: Saturday, July 01, 2017 02:24 - CONCLUSION: Normal examination for a patient of this age. Albert Walden MD Abdomen/Pelvis CT 06/29/17 0000 Signed Impressions: Service Date/Time: Thursday, June 29, 2017 12:52 - CONCLUSION: 1. Hepatosplenomegaly and varices noted as above. 2. Atherosclerosis. 3. Abnormal diffuse heterogeneous appearance of the liver which may be related to either marked hepatic steatosis in an inhomogeneous fashion versus steatosis and underlying diffuse liver masses. An MRI of the abdomen with and without contrast may be helpful for further evaluation of this finding. Navjot Chirinos MD Objective Remarks GENERAL: looks better today. CARDIOVASCULAR: Regular rate and regular rhythm without murmurs, gallops, or rubs. RESPIRATORY: diffuse wheezing with occasional cough GASTROINTESTINAL: Abdomen soft, non-tender, distended. Normal, active bowel sounds MUSCULOSKELETAL: Extremities without clubbing, cyanosis, or edema. NEURO: awake and more alert today. Procedures 06/30/17 EGD Medications and IVs Current Medications Sodium Chloride (NS Flush) 2 ml UNSCH PRN IV FLUSH FLUSH AFTER USING IV ACCESS ; Start 06/29/17 at 11:00; Stop 06/29/17 at 15:56; Status DC Iohexol (Omnipaque 350 Inj) 92 ml STK-MED ONCE IVCONTRAST Last administered on 06/29/17 10:21; Start 06/29/17 at 10:21; Stop 06/29/17 at 13:05; Status DC Octreotide Acetate (SandoSTATIN INJ) 100 mcg ONCE ONCE IV PUSH Last administered on 06/29/17 14:31; Start 06/29/17 at 14:15; Stop 06/29/17 at 14:27 ; Status DC Pantoprazole Sodium (Protonix Inj) 80 mg ONCE ONCE IV PUSH Last administered on 06/29/17 14:31; Start 06/29/17 at 14:15; Stop 06/29/17 at 14:27; Status DC Clonidine (Catapres) 0.1 mg Q4H PRN PO SBP>160, DBP>90; Start 06/29/17 at 16:00 Sodium Chloride 1,000 ml @ 100 mls/hr Q10H IV Last administered on 06/30/17 12:00; Start 06/29/17 at 16:00; Stop 06/30/17 at 17:09; Status DC Sodium Chloride (NS Flush) 2 ml UNSCH PRN IV FLUSH FLUSH AFTER USING IV ACCESS ; Start 06/29/17 at 16:00 Sodium Chloride (NS Flush) 2 ml BID IV FLUSH Last administered on 07/07/17 21: 03; Start 06/29/17 at 21:00 Acetaminophen (Tylenol) 650 mg Q4H PRN PO TEMP > 100.4; Start 06/29/17 at 15:15 Ondansetron HCl (Zofran Inj) 4 mg Q6H PRN IVP NAUSEA OR VOMITING Last administered on 07/03/17 17:20; Start 06/29/17 at 15:15 Prochlorperazine (Compazine Supp) 25 mg Q12H PRN RECTAL NAUSEA OR VOMITING; Start 06/29/17 at 15:15 Acetaminophen (Tylenol) 650 mg Q6H PRN PO PAIN SCALE 1 TO 2 Last administered on 06/30/17 04:52; Start 06/29/17 at 15:15 Morphine Sulfate (Morphine Inj) 2 mg Q3H PRN IV PUSH Pain 3-5; if unable to take PO; Start 06/29/17 at 16:00 Morphine Sulfate (Morphine Inj) 4 mg Q3H PRN IV PUSH Pain 6-10;if unable to take PO; Start 06/29/17 at 16:00 Tramadol HCl (Ultram) 50 mg Q4H PRN PO PAIN SCALE 3 TO 5 Last administered on 07/05/17 08:26; Start 06/29/17 at 16:00 Tramadol HCl (Ultram) 100 mg Q4H PRN PO PAIN SCALE 6 TO 10 Last administered on 07/06/17 00:00; Start 06/29/17 at 16:00 Naloxone HCl (Narcan Inj) 0.4 mg UNSCH PRN IV PUSH SEE LABEL COMMENTS; Start at 16:00 Senna/Docusate Sodium (Brittany-Colace) 1 tab BID PO Last administered on 21:03; Start 06/29/17 at 21:00 Magnesium Hydroxide (Milk Of Magnesia Liq) 30 ml Q12H PRN PO MILD - MODERATE CONSTIPATION; Start 06/29/17 at 15:15 Sennosides (Senokot) 17.2 mg Q12H PRN PO MODERATE - SEVERE CONSTIPATION; Start 06/29/17 at 15:15 Bisacodyl (Dulcolax Supp) 10 mg DAILY PRN RECTAL SEVERE CONSITIPATION; Start at 15:15 Lactulose (Lactulose Liq) 30 ml DAILY PRN PO SEVERE CONSITIPATION; Start at 15:15 Flumazenil (Romazicon Inj) 0.2 mg Q1M PRN IV PUSH SEE LABEL COMMENTS; Start at 16:00 Lorazepam (Ativan) 1 mg Q4H PRN PO CIWA 8 - 10 Last administered on 06/30/17 09:32; Start 06/29/17 at 16:00 Lorazepam (Ativan Inj) 1 mg Q4H PRN IV PUSH CIWA 8 - 10 Last administered on 14:40; Start 06/29/17 at 16:00 Lorazepam (Ativan) 2 mg Q2H PRN PO CIWA 11-14; Start 06/29/17 at 16:00 Lorazepam (Ativan Inj) 2 mg Q2H PRN IV PUSH CIWA 11-14 Last administered on 19:33; Start 06/29/17 at 16:00 Lorazepam (Ativan Inj) 2 mg Q1H PRN IV PUSH CIWA 15-20; Start 06/29/17 at 16:00 Lorazepam (Ativan Inj) 2 mg Q15M PRN IV PUSH CIWA > 20 Last administered on 02:48; Start 06/29/17 at 16:00 Haloperidol Lactate (Haldol Inj) 2 mg Q15M PRN IM SEE LABEL COMMENTS Last administered on 07/06/17 01:12; Start 06/29/17 at 16:00 Sodium Chloride (NS Flush) 2 ml UNSCH PRN IV FLUSH FLUSH AFTER USING IV ACCESS ; Start 06/29/17 at 15:15; Status UNV Sodium Chloride (NS Flush) 2 ml BID IV FLUSH ; Start 06/29/17 at 21:00; Status UNV Folic Acid (Folate) 1 mg DAILY PO Last administered on 07/04/17 10:08; Start 06/29/17 at 16:00; Stop 07/04/17 at 15:59; Status DC Thiamine HCl (Vitamin B1) 100 mg DAILY PO Last administered on 07/07/17 08:21 ; Start 06/29/17 at 16:00; Status Future hold Multivitamins/ Minerals Therapeutic (Theragran M Tab) 1 tab DAILY PO Last administered on 07/04/17 10:08; Start 06/29/17 at 16:00; Stop 07/04/17 at 15:59 ; Status DC Clonidine (Catapres) 0.1 mg Q6H PRN PO SEE LABEL COMMENTS; Start 06/29/17 at 16 :00 Sodium Chloride (NS Flush) 2 ml UNSCH PRN IV FLUSH FLUSH AFTER USING IV ACCESS ; Start 06/29/17 at 15:15; Status UNV Sodium Chloride (NS Flush) 2 ml BID IV FLUSH ; Start 06/29/17 at 21:00; Status UNV Pantoprazole Sodium (Protonix Inj) 40 mg BID IV Last administered on 07/07/17 21:03; Start 06/29/17 at 21:00 Albuterol/ Ipratropium (Duoneb Neb) 1 ampule Q4HR NEB PRN NEB sob; Start at 15:30; Stop 07/01/17 at 07:05; Status DC Guaifenesin (Mucinex Er) 600 mg BID PO Last administered on 07/07/17 21:03; Start 06/29/17 at 21:00 Nicotine (Habitrol 14 Mg Patch.24 Hr) 1 patch ONCE ONCE T-DERMAL Last administered on 06/29/17 18:04; Start 06/29/17 at 16:00; Stop 06/29/17 at 16:01 ; Status DC Nicotine (Habitrol 14 Mg Patch.24 Hr) 1 patch DAILY T-DERMAL Last administered on 07/07/17 08:20; Start 06/30/17 at 09:00 Miscellaneous Information 1 DAILY T-DERMAL Last administered on 07/07/17 08:21 ; Start 06/30/17 at 09:00 Rifaximin (Xifaxan) 550 mg BID PO Last administered on 07/07/17 21:03; Start 06/30/17 at 11:45 Lactulose (Lactulose Liq) 30 ml BID PO Last administered on 07/06/17 09:02; Start 06/30/17 at 21:00; Stop 07/06/17 at 15:21; Status DC Miscellaneous Information ALL NURSING DEPARTME... UNSCH PRN .XX SEE LABEL COMMENTS; Start 06/30/17 at 12:56; Stop 07/01/17 at 12:55; Status DC Chlordiazepoxide (Librium) 50 mg Q6H PO Last administered on 07/04/17 10:08; Start 06/30/17 at 16:00; Stop 07/04/17 at 16:15; Status DC Dexmedetomidine HCl 200 mcg/ Sodium Chloride 50 ml @ 4.86 mls/hr TITRATE PRN IV Desired RASS; Start 06/30/17 at 16:00; Stop 06/30/17 at 16:25; Status DC Dexmedetomidine HCl 1000 mcg/ Sodium Chloride 250 ml @ 4.86 mls/hr TITRATE PRN IV Desired RASS Last administered on 07/01/17 09:03; Start 06/30/17 at 16: 30; Stop 07/03/17 at 09:48; Status DC Dextrose/Sodium Chloride 1,000 ml @ 84 mls/hr [id number] IV Last administered on 07/03/17 04:36; Start 06/30/17 at 17:15; Stop 07/03/17 at 09:48; Status DC Dextrose (D50w (Vial) Inj) 50 ml UNSCH PRN IV PUSH HYPOGLYCEMIA-SEE COMMENTS; Start 06/30/17 at 17:15 Glucagon (Glucagon Inj) 1 mg UNSCH PRN OTHER HYPOGLYCEMIA-SEE COMMENTS; Start 06/30/17 at 17:15 Insulin Human Regular (NovoLIN R SUPPLEMENTAL SCALE) 1 Q4H SQ ; Start 06/30/17 at 18:00 Albuterol/ Ipratropium (Duoneb Neb) 1 ampule Q2HR NEB PRN NEB sob Last administered on 07/03/17 23:32; Start 07/01/17 at 07:15; Stop 07/04/17 at 16:21 ; Status DC Thiamine HCl 100 mg/Sodium Chloride 101 ml @ 101 mls/hr DAILY IV Last administered on 07/03/17 09:12; Start 07/01/17 at 09:00; Stop 07/04/17 at 08:59 ; Status DC Albuterol/ Ipratropium (Duoneb Neb) 1 ampule Q6HR NEB NEB Last administered on 07/04/17 09:47; Start 07/01/17 at 10:00; Stop 07/04/17 at 14:52; Status DC Potassium Chloride (KCl) 80 meq ONCE ONCE PO Last administered on 07/01/17 09 :00; Start 07/01/17 at 07:15; Stop 07/01/17 at 07:37; Status DC Potassium Chloride 100 ml @ 50 mls/hr Q2H PRN IV For Potassium 2.8 - 3.2 mEq/L ; Start 07/01/17 at 09:30 Potassium Chloride 100 ml @ 50 mls/hr Q2H PRN IV For Potassium 2.8 - 3.2 mEq/ L Last administered on 07/08/17 06:53; Start 07/01/17 at 09:30 Potassium Bicarb/ Potassium Chloride (K-Lyte Cl Eff) 50 meq UNSCH PRN PO For Potassium 3.3 - 3.5 mEq/L Last administered on 07/01/17 17:53; Start 07/01/17 at 09:30 Potassium Chloride 100 ml @ 25 mls/hr UNSCH PRN IV For Potassium 3.3 - 3.5 mEq /L; Start 07/01/17 at 09:30 Potassium Chloride 100 ml @ 50 mls/hr Q2H PRN IV For Potassium 3.3 - 3.5 mEq/ L Last administered on 07/04/17 18:26; Start 07/01/17 at 09:30 Magnesium Sulfate 4 gm/Sodium Chloride 100 ml @ 50 mls/hr UNSCH PRN IV For Magnesium 0.9 - 1.1 mg/dL; Start 07/01/17 at 09:30 Magnesium Oxide (Mag-Ox) 800 mg UNSCH PRN PO For Magnesium 1.2 - 1.6 mg/dL; Start 07/01/17 at 09:30 Magnesium Sulfate 2 gm/Sodium Chloride 100 ml @ 50 mls/hr UNSCH PRN IV For Magnesium 1.2 - 1.6 mg/dL; Start 07/01/17 at 09:30 Potassium Phosphate (K-Phos) 2,000 mg Q4H PRN PO For Phosphorus < 2.5 mg/dL; Start 07/01/17 at 09:30 Sodium Phosphate 30 mmol/Sodium Chloride 250 ml @ 42 mls/hr UNSCH PRN IV For Phosphorus < 2.5 mg/dL; Start 07/01/17 at 09:30 Potassium Phosphate (K-Phos) 2,000 mg UNSCH PRN PO/TUBE SEE LABEL COMMENTS; Start 07/01/17 at 09:30 Potassium Phosphate 30 mmol/ Sodium Chloride 260 ml @ 42 mls/hr UNSCH PRN IV SEE LABEL COMMENTS; Start 07/01/17 at 09:30 Lidocaine HCl (Xylocaine-Mpf 1% Inj) 5 ml STK-MED ONCE OTHER ; Start 06/30/17 at 12:00; Stop 07/01/17 at 15:24; Status DC Propofol (Diprivan 200 Mg/20 ml Inj) 400 mg STK-MED ONCE IV ; Start 06/30/17 at 12:00; Stop 07/01/17 at 15:24; Status DC Metoclopramide HCl (Reglan Inj) 10 mg Q8HR IV PUSH Last administered on 06:45; Start 07/02/17 at 09:00 Polyethylene Glycol (Miralax) 17 gm DAILY PO Last administered on 07/07/17 08: 21; Start 07/02/17 at 09:00 Gadodiamide (Omniscan Pf Inj) 19 ml STK-MED ONCE IVCONTRAST Last administered on 07/02/17 17:13; Start 07/02/17 at 17:13; Stop 07/02/17 at 17:14; Status DC Sodium Biphosphate/ Sodium Phosphate (Fleets Enema (Adult)) 133 ml ONCE ONCE RECTAL Last administered on 07/03/17 17:23; Start 07/03/17 at 17:00; Stop at 17:01; Status DC Furosemide (Lasix Inj) 40 mg NOW ONCE IV PUSH Last administered on 07/03/17 19:20; Start 07/03/17 at 19:15; Stop 07/03/17 at 19:16; Status DC Dexmedetomidine HCl 200 mcg/ Sodium Chloride 52 ml @ 5 mls/hr TITRATE PRN IV SEDATION Last administered on 07/04/17 05:45; Start 07/03/17 at 22:00; Stop at 16:18; Status DC Acetylcysteine (Mucomyst 10% Neb) 2 ml Q6HR NEB NEB Last administered on 07:44; Start 07/04/17 at 04:00; Stop 07/05/17 at 14:10; Status DC Vancomycin HCl 1000 mg/Sodium Chloride 250 ml @ 250 mls/hr ONCE ONCE IV ; Start 07/04/17 at 08:30; Stop 07/04/17 at 09:29; Status UNV Pharmacy Profile Note 0 ml @ 0 mls/hr UNSCH OTHER ; Start 07/04/17 at 08:30 Piperacillin Sod/ Tazobactam Sod 50 ml @ 100 mls/hr Q8H IV Last administered on 07/08/17 01:14; Start 07/04/17 at 09:00 Sodium Chloride 1,000 ml @ 60 mls/hr [id number] IV Last administered on 10:06; Start 07/04/17 at 08:30; Stop 07/04/17 at 16:18; Status DC Vancomycin HCl 1700 mg/Sodium Chloride 517 ml @ 250 mls/hr Q12H IV Last administered on 07/05/17 23:08; Start 07/04/17 at 11:00; Stop 07/06/17 at 11:38 ; Status DC Miscellaneous Information SPECIFIC LAB TO BE DRAWN:VANCOMY... ONCE ONCE .XX ; Start 07/05/17 at 22:45; Stop 07/05/17 at 22:46; Status DC Metronidazole 100 ml @ 100 mls/hr Q8H IV Last administered on 07/08/17 00:19 ; Start 07/04/17 at 16:00 Albuterol/ Ipratropium (Duoneb Neb) 1 ampule Q6HR WHILE AWAKE NEB NEB Last administered on 07/04/17 15:21; Start 07/04/17 at 20:00; Stop 07/04/17 at 20:00 ; Status DC Furosemide (Lasix Inj) 40 mg ONCE ONCE IV PUSH Last administered on 07/04/17 15:36; Start 07/04/17 at 15:30; Stop 07/04/17 at 15:31; Status DC Furosemide (Lasix Inj) 40 mg STK-MED ONCE .ROUTE ; Start 07/04/17 at 15:19; Stop 07/04/17 at 15:20; Status DC Diltiazem HCl (Cardizem Inj) 10 mg ONCE ONCE IV Last administered on 16:07; Start 07/04/17 at 16:00; Stop 07/04/17 at 16:02; Status DC Diltiazem HCl (Cardizem Inj) 25 mg STK-MED ONCE .ROUTE ; Start 07/04/17 at 16:00 ; Stop 07/04/17 at 16:01; Status DC Chlordiazepoxide (Librium) 25 mg Q12H PO Last administered on 07/06/17 02:31; Start 07/05/17 at 04:00; Stop 07/06/17 at 10:08; Status DC Albuterol/ Ipratropium (Duoneb Neb) 1 ampule Q4HR NEB NEB ; Start 07/04/17 at 20:00; Stop 07/05/17 at 06:22; Status DC Albuterol/ Ipratropium (Duoneb Neb) 1 ampule Q2HR NEB PRN NEB SHORTNESS OF BREATH Last administered on 07/05/17 19:25; Start 07/04/17 at 16:15 Clonidine (Catapres) 0.2 mg Q8HR PO Last administered on 07/08/17 06:45; Start 07/04/17 at 22:00 Diltiazem HCl (Cardizem Inj) 10 mg ONCE ONCE IV Last administered on 16:22; Start 07/04/17 at 16:15; Stop 07/04/17 at 16:20; Status DC Albuterol/ Ipratropium (Duoneb Neb) 1 ampule Q6HR WHILE AWAKE NEB NEB Last administered on 07/07/17 19:48; Start 07/04/17 at 20:00 Bumetanide (Bumex Inj) 1 mg ONCE ONCE IV PUSH Last administered on 07/05/17 12:35; Start 07/05/17 at 11:30; Stop 07/05/17 at 11:31; Status DC Chlordiazepoxide (Librium) 25 mg DAILY PO Last administered on 07/07/17 08:21 ; Start 07/07/17 at 09:00 Vancomycin HCl 2000 mg/Sodium Chloride 520 ml @ 257.5 mls/ hr Q12H IV Last administered on 07/08/17 01:22; Start 07/06/17 at 13:00 Miscellaneous Information SPECIFIC LAB TO BE ... ONCE ONCE .XX ; Start 07/08 at 12:45; Stop 07/08/17 at 12:46 Lactulose (Lactulose Liq) 30 ml TID PO Last administered on 07/07/17 17:50; Start 07/06/17 at 18:00 A/P Assessment and Plan A/P EtOH withdrawal Alcohol dependence History of depression/anxiety Currently on [facility] protocol. taper down Librium Continue Thiamine 100mg daily CT brain 07/01 revealed no acute intracranial findings. 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 Likely esophagitis/Menendez' s not biopsied. Pantoprazole 40 mg IV daily for GI prophylaxis continue Lactulose and Xifaxan . CT abdomen/pelvis revealed splenomegaly 19.3 cm. varices at the esophageal hiatus, gastric ligament and left upper quadrant. Renal splenic shunt appreciated. MRI abdomen showed Hepatomegaly and hepatic steatosis. No focal mass identified. Moderate splenomegaly. Small amount of ascites.Small bilateral pleural effusions. Liver workup including JOSE, ASMA, Hep profile all negative Elevated TSH 6.7. History of gout Sliding-scale insulin Novulin R every 4 hrs for maintain euglycemia hypokalemia replace and monitor as needed. Macrocytic anemia Thrombocytopenia chronic likely secondary to underlying EtOH /cirrhotic liver disease-(improving) Monitor CBC/coags No signs of hemolysis/consumption thrombocytopenia. This appears to be a chronic condition Right ankle pain X-ray right ankle rule out fracture-Soft tissue mass noted to be fluid filled on ultrasound 09/10/2012. No acute fracture PT evaluate and treat Prophylaxis - GI - pantoprazole - DVT - SCD/holding pharmacological prophylaxis in light of thrombocytopenia transfer to telemetry. d/w the Tyson Salazar MD Jul 08, 2017 08:13
[2017-07-08] MEDS: LACTULOSE SYRUP 20 GM/30 ML CUP PO SCH ×3 (08:34→17:39)
[2017-07-08] MEDS: POLYETHYLENE GLYCOL 17 GM PKG PO SCH (08:35)
[2017-07-08] MEDS: RIFAXIMIN 550 MG TAB PO SCH ×2 (08:35→22:16)
[2017-07-08] MEDS: PANTOPRAZOLE SODIUM 40 MG VIAL IV SCH ×2 (08:35→22:17)
[2017-07-08] MEDS: DOCUSATE SODIUM 50 MG/SENNA 8.6 MG TAB PO SCH ×2 (08:36→22:17)
[2017-07-08] MEDS: THIAMINE HCL 100 MG TAB PO SCH (08:36)
[2017-07-08] MEDS: NICOTINE 14 MG/24 HR PATCH T-DERMAL SCH (08:37)
[2017-07-08] MEDS: REMOVE OLD PATCH T-DERMAL SCH (08:37)
[2017-07-08] MEDS: ONDANSETRON HCL 4 MG/2 ML VIAL IVP PRN (08:43)
[2017-07-08] MEDS: SODIUM CHLORIDE 0.9% FLUSH 10 ML FLUSH IV FLUSH SCH ×2 (08:43→21:00)
[2017-07-08] MEDS: RESP: ALBUTEROL 2.5 MG/IPRATROPIUM 0.5 MG NEB (SCH) NEB (08:59)
[2017-07-08] MEDS: guaiFENesin E.R. 600 MG TAB PO SCH ×2 (09:19→22:16)
[2017-07-08] MEDS ORDERED: PHARMACY ORDERED LAB ONE (12:45)
[2017-07-08 17:55] LABS: BICARBONATE 23.2 MEQ/L (21.0-32.0); CALCIUM 7.7 MG/DL (8.5-10.1); CREATININE 1.2 MG/DL (0.60-1.30)
[2017-07-08 17:56] LABS: VANCOMYCIN TROUGH 45.1 MCG/ML (5.0-10.0)
--- NOTE | 2017-07-08 19:10 | HHI.PR ---
Subjective Remarks Feels good today .Remains on N/C 3 L. NG is out .No active GI bleed. Abdomen is less distended. Taking po diet. No N/V Objective Vital Signs Date Time Temp Pulse Resp B/P (MAP) Pulse Ox O2 Delivery O2 Flow Rate FiO2 07/08/17 16:00 97.4 80 20 118/71 (87) 97 07/08/17 12:00 88 07/08/17 12:00 97.6 88 119/67 (84) 94 07/08/17 10:00 82 07/08/17 08:58 96 Nasal Cannula 2.00 07/08/17 08:48 18 07/08/17 08:00 83 07/08/17 08:00 97.7 83 101/56 (71) 94 07/08/17 07:00 94 Nasal Cannula 2.00 07/08/17 06:00 97 07/08/17 04:00 98.2 72 108/56 (73) 96 07/08/17 04:00 72 07/08/17 00:00 78 07/08/17 00:00 98.3 78 107/59 (75) 94 07/07/17 22:00 83 07/07/17 20:00 98.2 83 136/78 (97) 96 07/07/17 20:00 83 07/07/17 19:48 95 Nasal Cannula 2.00 I/O 07/07/17 07/07/17 07/07/17 07/08/17 07/08/17 07/08/17 07:00 15:00 23:00 07:00 15:00 23:00 Intake Total 1490 ml 970 ml 970 ml 240 ml 1300 ml 720 ml Output Total 950 ml 1300 ml 1600 ml 400 ml Balance 540 ml 970 ml -330 ml -1360 ml 900 ml 720 ml Intake Oral 720 ml 720 ml 240 ml 480 ml IV Total 770 ml 970 ml 250 ml 820 ml 720 ml Output Urine Total 350 ml 600 ml 700 ml 400 ml Stool Total 600 ml 700 ml 900 ml Result Diagram: 07/07/17 0537 07/08/17 1712 Objective Remarks The patient is a 51 year-old male, lying in bed, in no distress. HEENT: Atraumatic, normocephalic. Pupils equal, round and reactive to light and accommodation. Conjunctivae pink. Nonicteric sclerae. Oral mucosa moist Neck: Supple. No JVD, adenopathy, thyromegaly. Trachea midline. Cardiovascular: Regular rate and rhythm. Normal S1-S2. No murmurs, rubs or gallops noted. Pulmonary exam: Bilateral wheezing. No Crackles. Abdomen: Mild distension. No Mass. Positive bowel sounds. Extremities: No cyanosis, clubbing or edema. Neuro: No focal deficit Assessment and Plan Assessment and Plan IMPRESSION: 1. Altered mental status. 2. ETOH abuse. 3. Anemia, status post EGD. 4. Thrombocytopenia secondary to liver disease. 5. Elevated AST. 6. Elevated ammonia level. 7. History of GERD and Menendez's esophagus. 8. Aspiration Pneumonia Plan : 1. PO diet as tolerated 2. Continue antibiotics and switch to PO. 3. Nebs qid , Duoneb. 4. IS at bedside q2h 5. CXR, CBC,BMP AM. 6. Transfer to [facility] Miesha Horan MD Jul 08, 2017 19:10
[2017-07-09] VITALS (10 sets, daily range): BP systolic 116–130; BP diastolic 66–74; PULSE 67–82; RESP 18–20; TEMP 97.3–98.5; O2SAT 90–99
[2017-07-09] MEDS: metroNIDAZOLE 500 MG INJ 100 ML IV SCH ×2 (01:23→07:15)
[2017-07-09] MEDS: RESP: ALBUTEROL 2.5 MG/IPRATROPIUM 0.5 MG NEB (PRN) NEB ×2 (01:38→05:25)
[2017-07-09] MEDS: INSULIN NovoLIN REGULAR SUPPLEMENTAL SCALE SQ SCH ×6 (02:00→20:25)
[2017-07-09] MEDS: PIPERACIL-TAZO 3.375 GM PREMIX 50 ML IV SCH ×2 (02:56→09:36)
[2017-07-09] MEDS: VANCOMYCIN INJ 2,000 MG in SODIUM CHLORID 0.9% 500 ML INJ 500 ML IV SCH (03:43)
[2017-07-09] MEDS: cloNIDine HCL 0.2 MG TAB PO SCH ×3 (07:11→22:35)
[2017-07-09] MEDS: METOCLOPRAMIDE HCL 10 MG/2 ML VIAL IV PUSH SCH ×3 (07:11→22:34)
--- NOTE | 2017-07-09 07:22 | RADRPT ---
EXAM DATE/TIME: 07/09/2017 06:10 [place] COMPARISON: No previous studies available for comparison. INDICATIONS : Short of breath, atelectasis MEDICAL HISTORY : esophageal carcinoma, GI bleed SURGICAL HISTORY : None. ENCOUNTER: Subsequent ACUITY: 2 days PAIN SCORE: Non-responsive. LOCATION: Bilateral chest FINDINGS: A single view of the chest demonstrates minimal basilar dependent density similar to July 07. No ef fusion. No pneumothorax. Heart size upper limits normal. CONCLUSION: 1. Minimal basilar dependent density. Differential diagnosis includes atelectasis. Findings similar t o prior exam. Albert Walden MD on July 09, 2017 at 7:20 Board Certified Radiologist. This report was verified electronically.
[2017-07-09] MEDS: SODIUM CHLORIDE 0.9% FLUSH 10 ML FLUSH IV FLUSH SCH ×2 (09:00→21:00)
[2017-07-09] MEDS: REMOVE OLD PATCH T-DERMAL SCH (09:00)
[2017-07-09] MEDS: POLYETHYLENE GLYCOL 17 GM PKG PO SCH ×2 (09:00→09:39)
[2017-07-09] MEDS: LACTULOSE SYRUP 20 GM/30 ML CUP PO SCH ×3 (09:38→18:25)
[2017-07-09] MEDS: PANTOPRAZOLE SODIUM 40 MG VIAL IV SCH ×2 (09:39→22:35)
[2017-07-09] MEDS: NICOTINE 14 MG/24 HR PATCH T-DERMAL SCH (09:39)
[2017-07-09] MEDS: THIAMINE HCL 100 MG TAB PO SCH (09:39)
[2017-07-09] MEDS: guaiFENesin E.R. 600 MG TAB PO SCH ×2 (09:40→22:35)
[2017-07-09] MEDS: DOCUSATE SODIUM 50 MG/SENNA 8.6 MG TAB PO SCH ×2 (09:40→22:35)
[2017-07-09 09:42] LABS: CREATININE 1.83 MG/DL (0.60-1.30)
[2017-07-09] MEDS: RIFAXIMIN 550 MG TAB PO SCH ×2 (09:59→22:35)
--- NOTE | 2017-07-09 11:38 | HHI.PR ---
Subjective Remarks in no acute distress. but overall ill-looking. still with some bilateral wheezing. afebrile. d/w the RN. Objective Vitals Vital Signs Date Time Temp Pulse Resp B/P (MAP) Pulse Ox O2 Delivery O2 Flow Rate FiO2 07/09/17 08:31 98.0 78 20 126/70 (88) 97 07/09/17 05:52 97.7 67 20 121/69 (86) 99 07/09/17 02:00 94 Nasal Cannula 3.00 07/09/17 01:50 97.3 82 18 117/72 (87) 96 07/09/17 01:39 95 Nasal Cannula 3.00 07/08/17 23:00 83 07/08/17 20:36 97.4 84 20 130/69 (89) 95 07/08/17 20:00 97 Nasal Cannula 2.00 07/08/17 16:00 97.4 80 20 118/71 (87) 97 07/08/17 12:00 88 07/08/17 12:00 97.6 88 119/67 (84) 94 I/O 07/08/17 07/08/17 07/08/17 07/09/17 07/09/17 07/09/17 07:00 15:00 23:00 07:00 15:00 23:00 Intake Total 240 ml 1300 ml 720 ml 200 ml 1170 ml Output Total 1600 ml 400 ml 300 ml 800 ml Balance -1360 ml 900 ml 420 ml -600 ml 1170 ml Intake Oral 240 ml 480 ml IV Total 820 ml 720 ml 200 ml 1170 ml Output Urine Total 700 ml 400 ml 300 ml 300 ml Stool Total 900 ml 500 ml Result Diagram: 07/07/17 0537 07/09/17 0833 Imaging Last Impressions Chest X-Ray 07/09/17599 Signed Impressions: Service Date/Time: July 06:10 - CONCLUSION: 1. Minimal basilar dependent density. Differential diagnosis includes atelectasis. Findings similar to prior exam. Albert Walden MD Abdomen X-Ray 07/07/17 06 Signed Impressions: Service Date/Time: Friday, July 07, 2017 04:56 - CONCLUSION: No significant change mild to moderate bowel distention. Nikko Owen MD Chest CT 07/05/17 [id number] Signed Impressions: Service Date/Time: Wednesday, July 05, 2017 18:11 - CONCLUSION: 1. Segmental consolidation with volume loss medial right lower lung. 2. Atelectasis or basilar consolidation left lower lung. 3. Mild amount of ascites. Caesar Ann MD Abdomen MRI 07/02/17 0000 Signed Impressions: Service Date/Time: June 16:34 - CONCLUSION: 1. Hepatomegaly and hepatic steatosis. No focal mass identified. 2. Moderate splenomegaly. 3. Small amount of ascites. 4. Small bilateral pleural effusions. Wilbert Howe MD Ankle X-Ray 07/01/17 0000 Signed Impressions: Service Date/Time: Saturday, July 01, 2017 10:22 - CONCLUSION: Soft tissue mass noted to be fluid filled on ultrasound 09/10/2012. Colten Nelson MD FACR Head CT 06/30/17 0000 Signed Impressions: Service Date/Time: Saturday, July 01, 2017 02:24 - CONCLUSION: 1. No acute intracranial abnormalities. Previous fixation left maxillary sinus. Albert Walden MD Cervical Spine CT 06/30/17 0000 Signed Impressions: Service Date/Time: Saturday, July 01, 2017 02:24 - CONCLUSION: Normal examination for a patient of this age. Albert Walden MD Abdomen/Pelvis CT 06/29/17 0000 Signed Impressions: Service Date/Time: Thursday, June 29, 2017 12:52 - CONCLUSION: 1. Hepatosplenomegaly and varices noted as above. 2. Atherosclerosis. 3. Abnormal diffuse heterogeneous appearance of the liver which may be related to either marked hepatic steatosis in an inhomogeneous fashion versus steatosis and underlying diffuse liver masses. An MRI of the abdomen with and without contrast may be helpful for further evaluation of this finding. Navjot Chirinos MD Objective Remarks GENERAL: looks better today. CARDIOVASCULAR: Regular rate and regular rhythm without murmurs, gallops, or rubs. RESPIRATORY: diffuse wheezing with occasional cough GASTROINTESTINAL: Abdomen soft, non-tender, distended. Normal, active bowel sounds MUSCULOSKELETAL: Extremities without clubbing, cyanosis, or edema. NEURO: awake and more alert today. Procedures 06/30/17 EGD Medications and IVs Current Medications Sodium Chloride (NS Flush) 2 ml UNSCH PRN IV FLUSH FLUSH AFTER USING IV ACCESS ; Start 06/29/17 at 11:00; Stop 06/29/17 at 15:56; Status DC Iohexol (Omnipaque 350 Inj) 92 ml STK-MED ONCE IVCONTRAST Last administered on 06/29/17 10:21; Start 06/29/17 at 10:21; Stop 06/29/17 at 13:05; Status DC Octreotide Acetate (SandoSTATIN INJ) 100 mcg ONCE ONCE IV PUSH Last administered on 06/29/17 14:31; Start 06/29/17 at 14:15; Stop 06/29/17 at 14:27 ; Status DC Pantoprazole Sodium (Protonix Inj) 80 mg ONCE ONCE IV PUSH Last administered on 06/29/17 14:31; Start 06/29/17 at 14:15; Stop 06/29/17 at 14:27; Status DC Clonidine (Catapres) 0.1 mg Q4H PRN PO SBP>160, DBP>90; Start 06/29/17 at 16:00 Sodium Chloride 1,000 ml @ 100 mls/hr Q10H IV Last administered on 06/30/17 12:00; Start 06/29/17 at 16:00; Stop 06/30/17 at 17:09; Status DC Sodium Chloride (NS Flush) 2 ml UNSCH PRN IV FLUSH FLUSH AFTER USING IV ACCESS ; Start 06/29/17 at 16:00 Sodium Chloride (NS Flush) 2 ml BID IV FLUSH Last administered on 07/09/17 09: 00; Start 06/29/17 at 21:00 Acetaminophen (Tylenol) 650 mg Q4H PRN PO TEMP > 100.4; Start 06/29/17 at 15:15 Ondansetron HCl (Zofran Inj) 4 mg Q6H PRN IVP NAUSEA OR VOMITING Last administered on 07/08/17 08:43; Start 06/29/17 at 15:15 Prochlorperazine (Compazine Supp) 25 mg Q12H PRN RECTAL NAUSEA OR VOMITING; Start 06/29/17 at 15:15 Acetaminophen (Tylenol) 650 mg Q6H PRN PO PAIN SCALE 1 TO 2 Last administered on 06/30/17 04:52; Start 06/29/17 at 15:15 Morphine Sulfate (Morphine Inj) 2 mg Q3H PRN IV PUSH Pain 3-5; if unable to take PO Last administered on 07/08/17 08:43; Start 06/29/17 at 16:00 Morphine Sulfate (Morphine Inj) 4 mg Q3H PRN IV PUSH Pain 6-10;if unable to take PO; Start 06/29/17 at 16:00 Tramadol HCl (Ultram) 50 mg Q4H PRN PO PAIN SCALE 3 TO 5 Last administered on 07/05/17 08:26; Start 06/29/17 at 16:00 Tramadol HCl (Ultram) 100 mg Q4H PRN PO PAIN SCALE 6 TO 10 Last administered on 07/06/17 00:00; Start 06/29/17 at 16:00 Naloxone HCl (Narcan Inj) 0.4 mg UNSCH PRN IV PUSH SEE LABEL COMMENTS; Start at 16:00 Senna/Docusate Sodium (Brittany-Colace) 1 tab BID PO Last administered on 09:40; Start 06/29/17 at 21:00 Magnesium Hydroxide (Milk Of Magnesia Liq) 30 ml Q12H PRN PO MILD - MODERATE CONSTIPATION; Start 06/29/17 at 15:15 Sennosides (Senokot) 17.2 mg Q12H PRN PO MODERATE - SEVERE CONSTIPATION; Start 06/29/17 at 15:15 Bisacodyl (Dulcolax Supp) 10 mg DAILY PRN RECTAL SEVERE CONSITIPATION; Start at 15:15 Lactulose (Lactulose Liq) 30 ml DAILY PRN PO SEVERE CONSITIPATION; Start at 15:15 Flumazenil (Romazicon Inj) 0.2 mg Q1M PRN IV PUSH SEE LABEL COMMENTS; Start at 16:00 Lorazepam (Ativan) 1 mg Q4H PRN PO CIWA 8 - 10 Last administered on 06/30/17 09:32; Start 06/29/17 at 16:00 Lorazepam (Ativan Inj) 1 mg Q4H PRN IV PUSH CIWA 8 - 10 Last administered on 14:40; Start 06/29/17 at 16:00 Lorazepam (Ativan) 2 mg Q2H PRN PO CIWA 11-14; Start 06/29/17 at 16:00 Lorazepam (Ativan Inj) 2 mg Q2H PRN IV PUSH CIWA 11-14 Last administered on 19:33; Start 06/29/17 at 16:00 Lorazepam (Ativan Inj) 2 mg Q1H PRN IV PUSH CIWA 15-20; Start 06/29/17 at 16:00 Lorazepam (Ativan Inj) 2 mg Q15M PRN IV PUSH CIWA > 20 Last administered on 02:48; Start 06/29/17 at 16:00 Haloperidol Lactate (Haldol Inj) 2 mg Q15M PRN IM SEE LABEL COMMENTS Last administered on 07/06/17 01:12; Start 06/29/17 at 16:00 Sodium Chloride (NS Flush) 2 ml UNSCH PRN IV FLUSH FLUSH AFTER USING IV ACCESS ; Start 06/29/17 at 15:15; Status UNV Sodium Chloride (NS Flush) 2 ml BID IV FLUSH ; Start 06/29/17 at 21:00; Status UNV Folic Acid (Folate) 1 mg DAILY PO Last administered on 07/04/17 10:08; Start 06/29/17 at 16:00; Stop 07/04/17 at 15:59; Status DC Thiamine HCl (Vitamin B1) 100 mg DAILY PO Last administered on 07/09/17 09:39 ; Start 06/29/17 at 16:00; Status Future hold Multivitamins/ Minerals Therapeutic (Theragran M Tab) 1 tab DAILY PO Last administered on 07/04/17 10:08; Start 06/29/17 at 16:00; Stop 07/04/17 at 15:59 ; Status DC Clonidine (Catapres) 0.1 mg Q6H PRN PO SEE LABEL COMMENTS; Start 06/29/17 at 16 :00 Sodium Chloride (NS Flush) 2 ml UNSCH PRN IV FLUSH FLUSH AFTER USING IV ACCESS ; Start 06/29/17 at 15:15; Status UNV Sodium Chloride (NS Flush) 2 ml BID IV FLUSH ; Start 06/29/17 at 21:00; Status UNV Pantoprazole Sodium (Protonix Inj) 40 mg BID IV Last administered on 07/09/17 09:39; Start 06/29/17 at 21:00 Albuterol/ Ipratropium (Duoneb Neb) 1 ampule Q4HR NEB PRN NEB sob; Start at 15:30; Stop 07/01/17 at 07:05; Status DC Guaifenesin (Mucinex Er) 600 mg BID PO Last administered on 07/09/17 09:40; Start 06/29/17 at 21:00 Nicotine (Habitrol 14 Mg Patch.24 Hr) 1 patch ONCE ONCE T-DERMAL Last administered on 06/29/17 18:04; Start 06/29/17 at 16:00; Stop 06/29/17 at 16:01 ; Status DC Nicotine (Habitrol 14 Mg Patch.24 Hr) 1 patch DAILY T-DERMAL Last administered on 07/09/17 09:39; Start 06/30/17 at 09:00 Miscellaneous Information 1 DAILY T-DERMAL Last administered on 07/09/17 09:00 ; Start 06/30/17 at 09:00 Rifaximin (Xifaxan) 550 mg BID PO Last administered on 07/09/17 09:59; Start 06/30/17 at 11:45 Lactulose (Lactulose Liq) 30 ml BID PO Last administered on 07/06/17 09:02; Start 06/30/17 at 21:00; Stop 07/06/17 at 15:21; Status DC Miscellaneous Information ALL NURSING DEPARTME... UNSCH PRN .XX SEE LABEL COMMENTS; Start 06/30/17 at 12:56; Stop 07/01/17 at 12:55; Status DC Chlordiazepoxide (Librium) 50 mg Q6H PO Last administered on 07/04/17 10:08; Start 06/30/17 at 16:00; Stop 07/04/17 at 16:15; Status DC Dexmedetomidine HCl 200 mcg/ Sodium Chloride 50 ml @ 4.86 mls/hr TITRATE PRN IV Desired RASS; Start 06/30/17 at 16:00; Stop 06/30/17 at 16:25; Status DC Dexmedetomidine HCl 1000 mcg/ Sodium Chloride 250 ml @ 4.86 mls/hr TITRATE PRN IV Desired RASS Last administered on 07/01/17 09:03; Start 06/30/17 at 16: 30; Stop 07/03/17 at 09:48; Status DC Dextrose/Sodium Chloride 1,000 ml @ 84 mls/hr [id number] IV Last administered on 07/03/17 04:36; Start 06/30/17 at 17:15; Stop 07/03/17 at 09:48; Status DC Dextrose (D50w (Vial) Inj) 50 ml UNSCH PRN IV PUSH HYPOGLYCEMIA-SEE COMMENTS; Start 06/30/17 at 17:15 Glucagon (Glucagon Inj) 1 mg UNSCH PRN OTHER HYPOGLYCEMIA-SEE COMMENTS; Start 06/30/17 at 17:15 Insulin Human Regular (NovoLIN R SUPPLEMENTAL SCALE) 1 Q4H SQ ; Start 06/30/17 at 18:00 Albuterol/ Ipratropium (Duoneb Neb) 1 ampule Q2HR NEB PRN NEB sob Last administered on 07/03/17 23:32; Start 07/01/17 at 07:15; Stop 07/04/17 at 16:21 ; Status DC Thiamine HCl 100 mg/Sodium Chloride 101 ml @ 101 mls/hr DAILY IV Last administered on 07/03/17 09:12; Start 07/01/17 at 09:00; Stop 07/04/17 at 08:59 ; Status DC Albuterol/ Ipratropium (Duoneb Neb) 1 ampule Q6HR NEB NEB Last administered on 07/04/17 09:47; Start 07/01/17 at 10:00; Stop 07/04/17 at 14:52; Status DC Potassium Chloride (KCl) 80 meq ONCE ONCE PO Last administered on 07/01/17 09 :00; Start 07/01/17 at 07:15; Stop 07/01/17 at 07:37; Status DC Potassium Chloride 100 ml @ 50 mls/hr Q2H PRN IV For Potassium 2.8 - 3.2 mEq/L ; Start 07/01/17 at 09:30; Stop 07/08/17 at 08:16; Status DC Potassium Chloride 100 ml @ 50 mls/hr Q2H PRN IV For Potassium 2.8 - 3.2 mEq/ L Last administered on 07/08/17 06:53; Start 07/01/17 at 09:30; Stop 07/08/17 at 08:16; Status DC Potassium Bicarb/ Potassium Chloride (K-Lyte Cl Eff) 50 meq UNSCH PRN PO For Potassium 3.3 - 3.5 mEq/L Last administered on 07/01/17 17:53; Start 07/01/17 at 09:30 Potassium Chloride 100 ml @ 25 mls/hr UNSCH PRN IV For Potassium 3.3 - 3.5 mEq /L; Start 07/01/17 at 09:30; Stop 07/08/17 at 08:16; Status DC Potassium Chloride 100 ml @ 50 mls/hr Q2H PRN IV For Potassium 3.3 - 3.5 mEq/ L Last administered on 07/04/17 18:26; Start 07/01/17 at 09:30; Stop 07/08/17 at 08:16; Status DC Magnesium Sulfate 4 gm/Sodium Chloride 100 ml @ 50 mls/hr UNSCH PRN IV For Magnesium 0.9 - 1.1 mg/dL; Start 07/01/17 at 09:30; Stop 07/08/17 at 08:16; Status DC Magnesium Oxide (Mag-Ox) 800 mg UNSCH PRN PO For Magnesium 1.2 - 1.6 mg/dL; Start 07/01/17 at 09:30; Stop 07/08/17 at 08:16; Status DC Magnesium Sulfate 2 gm/Sodium Chloride 100 ml @ 50 mls/hr UNSCH PRN IV For Magnesium 1.2 - 1.6 mg/dL; Start 07/01/17 at 09:30; Stop 07/08/17 at 08:16; Status DC Potassium Phosphate (K-Phos) 2,000 mg Q4H PRN PO For Phosphorus < 2.5 mg/dL; Start 07/01/17 at 09:30; Stop 07/08/17 at 08:16; Status DC Sodium Phosphate 30 mmol/Sodium Chloride 250 ml @ 42 mls/hr UNSCH PRN IV For Phosphorus < 2.5 mg/dL; Start 07/01/17 at 09:30; Stop 07/08/17 at 08:16; Status DC Potassium Phosphate (K-Phos) 2,000 mg UNSCH PRN PO/TUBE SEE LABEL COMMENTS; Start 07/01/17 at 09:30; Stop 07/08/17 at 08:16; Status DC Potassium Phosphate 30 mmol/ Sodium Chloride 260 ml @ 42 mls/hr UNSCH PRN IV SEE LABEL COMMENTS; Start 07/01/17 at 09:30; Stop 07/08/17 at 08:16; Status DC Lidocaine HCl (Xylocaine-Mpf 1% Inj) 5 ml STK-MED ONCE OTHER ; Start 06/30/17 at 12:00; Stop 07/01/17 at 15:24; Status DC Propofol (Diprivan 200 Mg/20 ml Inj) 400 mg STK-MED ONCE IV ; Start 06/30/17 at 12:00; Stop 07/01/17 at 15:24; Status DC Metoclopramide HCl (Reglan Inj) 10 mg Q8HR IV PUSH Last administered on 07:11; Start 07/02/17 at 09:00 Polyethylene Glycol (Miralax) 17 gm DAILY PO Last administered on 07/08/17 08: 35; Start 07/02/17 at 09:00 Gadodiamide (Omniscan Pf Inj) 19 ml STK-MED ONCE IVCONTRAST Last administered on 07/02/17 17:13; Start 07/02/17 at 17:13; Stop 07/02/17 at 17:14; Status DC Sodium Biphosphate/ Sodium Phosphate (Fleets Enema (Adult)) 133 ml ONCE ONCE RECTAL Last administered on 07/03/17 17:23; Start 07/03/17 at 17:00; Stop at 17:01; Status DC Furosemide (Lasix Inj) 40 mg NOW ONCE IV PUSH Last administered on 07/03/17 19:20; Start 07/03/17 at 19:15; Stop 07/03/17 at 19:16; Status DC Dexmedetomidine HCl 200 mcg/ Sodium Chloride 52 ml @ 5 mls/hr TITRATE PRN IV SEDATION Last administered on 07/04/17 05:45; Start 07/03/17 at 22:00; Stop at 16:18; Status DC Acetylcysteine (Mucomyst 10% Neb) 2 ml Q6HR NEB NEB Last administered on 07:44; Start 07/04/17 at 04:00; Stop 07/05/17 at 14:10; Status DC Vancomycin HCl 1000 mg/Sodium Chloride 250 ml @ 250 mls/hr ONCE ONCE IV ; Start 07/04/17 at 08:30; Stop 07/04/17 at 09:29; Status UNV Pharmacy Profile Note 0 ml @ 0 mls/hr UNSCH OTHER ; Start 07/04/17 at 08:30 Piperacillin Sod/ Tazobactam Sod 50 ml @ 100 mls/hr Q8H IV Last administered on 07/09/17 09:36; Start 07/04/17 at 09:00 Sodium Chloride 1,000 ml @ 60 mls/hr [id number] IV Last administered on 10:06; Start 07/04/17 at 08:30; Stop 07/04/17 at 16:18; Status DC Vancomycin HCl 1700 mg/Sodium Chloride 517 ml @ 250 mls/hr Q12H IV Last administered on 07/05/17 23:08; Start 07/04/17 at 11:00; Stop 07/06/17 at 11:38 ; Status DC Miscellaneous Information SPECIFIC LAB TO BE DRAWN:VANCOMY... ONCE ONCE .XX ; Start 07/05/17 at 22:45; Stop 07/05/17 at 22:46; Status DC Metronidazole 100 ml @ 100 mls/hr Q8H IV Last administered on 07/09/17 07:15 ; Start 07/04/17 at 16:00 Albuterol/ Ipratropium (Duoneb Neb) 1 ampule Q6HR WHILE AWAKE NEB NEB Last administered on 07/04/17 15:21; Start 07/04/17 at 20:00; Stop 07/04/17 at 20:00 ; Status DC Furosemide (Lasix Inj) 40 mg ONCE ONCE IV PUSH Last administered on 07/04/17 15:36; Start 07/04/17 at 15:30; Stop 07/04/17 at 15:31; Status DC Furosemide (Lasix Inj) 40 mg STK-MED ONCE .ROUTE ; Start 07/04/17 at 15:19; Stop 07/04/17 at 15:20; Status DC Diltiazem HCl (Cardizem Inj) 10 mg ONCE ONCE IV Last administered on 16:07; Start 07/04/17 at 16:00; Stop 07/04/17 at 16:02; Status DC Diltiazem HCl (Cardizem Inj) 25 mg STK-MED ONCE .ROUTE ; Start 07/04/17 at 16:00 ; Stop 07/04/17 at 16:01; Status DC Chlordiazepoxide (Librium) 25 mg Q12H PO Last administered on 07/06/17 02:31; Start 07/05/17 at 04:00; Stop 07/06/17 at 10:08; Status DC Albuterol/ Ipratropium (Duoneb Neb) 1 ampule Q4HR NEB NEB ; Start 07/04/17 at 20:00; Stop 07/05/17 at 06:22; Status DC Albuterol/ Ipratropium (Duoneb Neb) 1 ampule Q2HR NEB PRN NEB SHORTNESS OF BREATH Last administered on 07/09/17 05:25; Start 07/04/17 at 16:15 Clonidine (Catapres) 0.2 mg Q8HR PO Last administered on 07/09/17 07:11; Start 07/04/17 at 22:00 Diltiazem HCl (Cardizem Inj) 10 mg ONCE ONCE IV Last administered on 16:22; Start 07/04/17 at 16:15; Stop 07/04/17 at 16:20; Status DC Albuterol/ Ipratropium (Duoneb Neb) 1 ampule Q6HR WHILE AWAKE NEB NEB Last administered on 07/08/17 08:59; Start 07/04/17 at 20:00; Stop 07/08/17 at 19:59 ; Status DC Bumetanide (Bumex Inj) 1 mg ONCE ONCE IV PUSH Last administered on 07/05/17 12:35; Start 07/05/17 at 11:30; Stop 07/05/17 at 11:31; Status DC Chlordiazepoxide (Librium) 25 mg DAILY PO Last administered on 07/07/17 08:21 ; Start 07/07/17 at 09:00; Stop 07/08/17 at 08:16; Status DC Vancomycin HCl 2000 mg/Sodium Chloride 520 ml @ 257.5 mls/ hr Q12H IV Last administered on 07/09/17 03:43; Start 07/06/17 at 13:00 Miscellaneous Information SPECIFIC LAB TO BE ... ONCE ONCE .XX Last administered on 07/08/17 12:45; Start 07/08/17 at 12:45; Stop 07/08/17 at 12:46 ; Status DC Lactulose (Lactulose Liq) 30 ml TID PO Last administered on 07/09/17 09:38; Start 07/06/17 at 18:00 Chlordiazepoxide (Librium) 20 mg DAILY PO Last administered on 07/09/17 09:39 ; Start 07/08/17 at 09:00 Miscellaneous Information SPECIFIC LAB TO BE DRAWN:VANCOMYCIN TROUGH DATE TO... ONCE ONCE .XX ; Start 07/09/17 at 12:45; Stop 07/09/17 at 12:46 A/P Assessment and Plan A/P EtOH withdrawal Alcohol dependence History of depression/anxiety Currently on CITN protocol. taper down Librium Continue Thiamine 100mg daily CT brain 07/01 revealed no acute intracranial findings. Patient with history of right zygomatic/maxillary sinus surgery 2015 CT C-spine 07/01 negative findings Tramadol 50-100 mg every 4 hours as needed pain Atherosclerotic vascular disease Dyslipidemia Hypertension Monitor HR and BP keep MAP>65mmHg On Clonidine 0.2mg Q8 for BP control Possible Aspiration pneumonia Tobaccoism History of asthma/reactive airway disease Continue with oxygen keep sat> 92% Bronchodilators; will add schedule neb treatments. awitch to po Augmentin Pulm is following-/ Aung acute kidney injury non-oliguric- will monitor the renal function closely; repeat BMP this afternoon. check urine sodium will consider nephrology consult- pending the renal function trend. 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 Likely esophagitis/Menendez' s not biopsied. Pantoprazole 40 mg IV daily for GI prophylaxis continue Lactulose and Xifaxan . CT abdomen/pelvis revealed splenomegaly 19.3 cm. varices at the esophageal hiatus, gastric ligament and left upper quadrant. Renal splenic shunt appreciated. MRI abdomen showed Hepatomegaly and hepatic steatosis. No focal mass identified. Moderate splenomegaly. Small amount of ascites.Small bilateral pleural effusions. Liver workup including JOSE, ASMA, Hep profile all negative Elevated TSH 6.7. History of gout Sliding-scale insulin Novulin R every 4 hrs for maintain euglycemia hypokalemia replaced . Macrocytic anemia Thrombocytopenia chronic likely secondary to underlying EtOH /cirrhotic liver disease-(improving) Monitor CBC/coags No signs of hemolysis/consumption thrombocytopenia. This appears to be a chronic condition Right ankle pain X-ray right ankle rule out fracture-Soft tissue mass noted to be fluid filled on ultrasound 09/10/2012. No acute fracture PT evaluate and treat Prophylaxis - GI - pantoprazole - DVT - SCD/holding pharmacological prophylaxis in light of thrombocytopenia consult palliative care. d/w the RN. Tyson Boyd MD Jul 09, 2017 11:38
--- NOTE | 2017-07-09 12:31 | HHI.GIFU ---
Subjective Remarks Resting in bed. Confused. Diffuse abdominal tenderness. Rectal bag with liquid stool. (Yoli Koenig) Objective Vitals I&O Vital Signs Date Time Temp Pulse Resp B/P (MAP) Pulse Ox O2 Delivery O2 Flow Rate FiO2 07/09/17 08:31 98.0 78 20 126/70 (88) 97 07/09/17 05:52 97.7 67 20 121/69 (86) 99 07/09/17 02:00 94 Nasal Cannula 3.00 07/09/17 01:50 97.3 82 18 117/72 (87) 96 07/09/17 01:39 95 Nasal Cannula 3.00 07/08/17 23:00 83 07/08/17 20:36 97.4 84 20 130/69 (89) 95 07/08/17 20:00 97 Nasal Cannula 2.00 07/08/17 16:00 97.4 80 20 118/71 (87) 97 I/O 07/08/17 07/08/17 07/08/17 07/09/17 07/09/17 07/09/17 07:00 15:00 23:00 07:00 15:00 23:00 Intake Total 240 ml 1300 ml 720 ml 200 ml 1170 ml Output Total 1600 ml 400 ml 300 ml 800 ml Balance -1360 ml 900 ml 420 ml -600 ml 1170 ml Intake Oral 240 ml 480 ml IV Total 820 ml 720 ml 200 ml 1170 ml Output Urine Total 700 ml 400 ml 300 ml 300 ml Stool Total 900 ml 500 ml Laboratory Laboratory Tests Test 07/08/17 17:12 07/09/17 08:33 Blood Urea Nitrogen 15 Creatinine 1.20 1.83 Random Glucose 94 Calcium Level 7.7 Sodium Level 143 Potassium Level 3.5 Chloride Level 111 Carbon Dioxide Level 23.2 Anion Gap 9 Estimat Glomerular Filtration Rate 64 39 Vancomycin Level Trough 45.1 Date/Time Source Procedure Growth Status 07/04/17 13:00 Blood Peripheral Aerobic Blood Culture - Final NO GROWTH IN 5 DAYS Complete 07/04/17 13:00 Blood Peripheral Anaerobic Blood Culture - Final NO GROWTH IN 5 DAYS Complete 07/04/17 10:00 Sputum Expectorated Sputum Gram Stain - Final Complete 07/04/17 10:00 Sputum Expectorated Sputum Sputum Culture - Final HEAVY GROWTH NORMAL RESPIRATORY BRENNAN Complete 07/04/17 16:30 Urine Catheterized Urine Legionella Antigen - Final PRESUMPTIVE NEGATIVE FOR LEGIONELLA P... Complete 07/04/17 16:30 Urine Catheterized Urine Streptococcus pneumoniae Antigen (M - Final PRESUMPTIVE NEGATIVE FOR STREPTOCOCCU... Complete Imaging Last Impressions Chest X-Ray 07/09/17 0600 Signed Impressions: Service Date/Time: July 06:10 - CONCLUSION: 1. Minimal basilar dependent density. Differential diagnosis includes atelectasis. Findings similar to prior exam. Albert Walden MD Abdomen X-Ray 07/07/17 0600 Signed Impressions: Service Date/Time: Friday, July 07, 2017 04:56 - CONCLUSION: No significant change mild to moderate bowel distention. Nikko Owen MD Chest CT 07/05/17 1635 Signed Impressions: Service Date/Time: Wednesday, July 05, 2017 18:11 - CONCLUSION: 1. Segmental consolidation with volume loss medial right lower lung. 2. Atelectasis or basilar consolidation left lower lung. 3. Mild amount of ascites. Caesar Ann MD Abdomen MRI 07/02/17 0000 Signed Impressions: Service Date/Time: June 16:34 - CONCLUSION: 1. Hepatomegaly and hepatic steatosis. No focal mass identified. 2. Moderate splenomegaly. 3. Small amount of ascites. 4. Small bilateral pleural effusions. Wilbert Howe MD Ankle X-Ray 07/01/17 0000 Signed Impressions: Service Date/Time: Saturday, July 01, 2017 10:22 - CONCLUSION: Soft tissue mass noted to be fluid filled on ultrasound 09/10/2012. Colten Nelson MD FACR Head CT 06/30/17 0000 Signed Impressions: Service Date/Time: Saturday, July 01, 2017 02:24 - CONCLUSION: 1. No acute intracranial abnormalities. Previous fixation left maxillary sinus. Albert Walden MD Cervical Spine CT 06/30/17 0000 Signed Impressions: Service Date/Time: Saturday, July 01, 2017 02:24 - CONCLUSION: Normal examination for a patient of this age. Albert Walden MD Abdomen/Pelvis CT 06/29/17 0000 Signed Impressions: Service Date/Time: Thursday, June 29, 2017 12:52 - CONCLUSION: 1. Hepatosplenomegaly and varices noted as above. 2. Atherosclerosis. 3. Abnormal diffuse heterogeneous appearance of the liver which may be related to either marked hepatic steatosis in an inhomogeneous fashion versus steatosis and underlying diffuse liver masses. An MRI of the abdomen with and without contrast may be helpful for further evaluation of this finding. Navjot Chirinos MD Physical Exam HEENT: Normocephalic; atraumatic; + jaundice. CHEST: Resp. even/unlabored, diminished CARDIAC: RRR ABDOMEN: Abdomen tympanic, distended, mild diffuse tenderness; bowel sounds are hypoactive. Rectal tube in place with moderate amount of liquid brown stool. EXTREMITIES: No clubbing, cyanosis, or edema. SKIN: + jaundice. [employer] M[employer]ING: Lethargic, Confused. (Yoli Koenig) Assessment and Plan Plan ASSESSMENT: - Questionable upper GI bleeding. Pt reports intermittent nausea/vomiting with dark emesis and occasional red blood and intermittent dark stools. Not actively bleeding. Of note, does report that he has had nose bleeds x 2 days. However, he does have evidence of liver cirrhosis and varcies on CT imaging. EGD/Colonoscopy (12/24/15)---> There was a 5 cm segment of suspected Menendez's esophagus found in the distal esophagus, multiple biopsies were performed, there was erythematous gastritis in the entire examined stomach; multiple biopsies were performed, normal duodenal mucosa in the bulb and second portion of the duodenum, retroflexion was performed and was normal; the colon mucosa was otherwise normal, retroflexed views revealed no abnormalities. Pathology with gastric antral mucosal biopsies with histopathologic features consistent with chemical gastropathy, as may bee seen with bile reflux, non-steroidal anti-inflammatory drugs or other drug induced disease negative for intestinal metaplasia and dysplasia, farhat stain negative for helicobacter. GE mucosal biopsies with chronic inflammatory gastric changes consistent with reflux exhibiting extensive intestinal metaplasia, negative for dysplasia. 1. 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 Gastropathy and mild gastritis 3. Moderate duodenitis 4. No active bleeding and no sign of old bleeding 5. Retroflexed views revealed no abnormalities PPI. No active bleeding. HH 10.2/31.1. - Persistent ileus. CT scan abdomen and pelvis (06/29/17)----> Hepatosplenomegaly and varices noted as above. Atherosclerosis. Abnormal diffuse heterogeneous appearance of the liver which may be related to either marked hepatic steatosis in an inhomogeneous fashion versus steatosis and underlying diffuse liver masses. An MRI of the abdomen with and without contrast may be helpful for further evaluation of this finding. Pt states this pain began after a hernia repair in July of 2016 and is intermittent at times, but usually more constant. S/P Fleets enema. KUB (07/07/17)---> No significant change mild to moderate bowel distention. Reglan, Miralax. + Stools, but remains distended, maybe slightly worse today. Will get SBFT with gastrografin (therapeutic/ diagnostic). - Liver cirrhosis/Elevated LFTs. Pt reports that he has been told that his liver was enlarged, but never told that he had liver cirrhosis. He continues to drink ETOH, stating [address] has findings of varcies, he has thrombocytopenia, coagulopathy, hypoalbuminemia, all of which support a dx of liver cirrhosis. MRI (07/02/17)---> hepatomegaly and hepatic steatosis, no focal mass identified. Moderate splenomegaly, small amount of of ascites. Small bilateral pleural effusion. Will check liver workup to r/o other underlying liver disease- JOSE negative, AMA <20.0, ASMA negative, AFP 4.6. ALpha 1 Antitrypsin 221, Ceruloplasmin 37, Ferritin 94, Iron saturation 14.0%. Hepatitis profile neg. This is likely related to ETOH. DF 6.0. MELD 13. - Menendez's Esophagus, GERD. Takes ranitidine as needed at home, has daily symptoms. EGD as above. PPI - Thrombocytopenia, Coagulopathy. Likely related to cirrhosis. - Anemia, macrocytic. HH stable, 10.5/32.3. Folate 17.2, B12 1711. - Hepatic encephalopathy, Ammonia 66. Lactulose TID, Xifaxan. Still very lethargic, confused. - ETOH abuse. DT precautions per attending. - Resp. Insufficiency/Asthma, per attending. - Depression, Hyperlipidemia. Per attending. PLAN: - Clear liquids - SBFT with gastrografin - Relistor 12mg subcutaneous x 1 - KUB in am - Cont. Reglan - Cont. Miralax - Cont. Protonix - Cont. Lactulose - Cont. Xifaxan - Monitor labs - Supportive care - Further recommendations to follow based on results of above - PT seen and examined by Dr. Salgado and myself and this note is written on her behalf (Yoli Koenig) Physician Comments agree with above (Priscila Salgado MD) Yoli Koenig Jul 09, 2017 12:31 Priscila Salgado MD Jul 09, 2017 18:30
[2017-07-09] MEDS ORDERED: PHARMACY ORDERED LAB ONE (12:45)
[2017-07-09] MEDS ORDERED: METHYLNALTREXONE BROMIDE 12 MG/0.6 ML VIAL SQ ONE (12:45)
[2017-07-09 13:02] LABS: AMORPHOUS SEDIMENT, URINE RARE; BACTERIA, URINE OCC /hpf; BILIRUBIN, URINE NEG (NEG); BLOOD, URINE SMALL (NEG); GLUCOSE,URINE NEG (NEG); KETONE, URINE NEG (NEG); NITRITE,URINE NEG (NEG); URINE COLOR YELLOW (YELLW/STRAW); URINE LEUKOCYTE ESTERASE NEG (NEG)
[2017-07-09] MEDS: AMOXICILLIN/CLAVULANATE K 500 MG TAB PO SCH ×2 (13:43→22:35)
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
[2017-07-09] MEDS: RESP: ALBUTEROL 2.5 MG/IPRATROPIUM 0.5 MG NEB (SCH) NEB ×2 (15:32→19:42)
[2017-07-09 15:53] LABS: CALCIUM 7.9 MG/DL (8.5-10.1)
--- NOTE | 2017-07-09 19:44 | HHI.PR ---
Subjective Remarks No new change .Remains on N/C 3 L. No active GI bleed. Abdomen is less distended. Taking po diet. No N/V Objective Vital Signs Date Time Temp Pulse Resp B/P (MAP) Pulse Ox O2 Delivery O2 Flow Rate FiO2 07/09/17 17:56 92 Nasal Cannula 07/09/17 16:52 97.3 82 20 130/74 (92) 92 07/09/17 15:35 90 07/09/17 12:28 98.5 75 20 120/68 (85) 98 07/09/17 08:31 98.0 78 20 126/70 (88) 97 07/09/17 05:52 97.7 67 20 121/69 (86) 99 07/09/17 02:00 94 Nasal Cannula 3.00 07/09/17 01:50 97.3 82 18 117/72 (87) 96 07/09/17 01:39 95 Nasal Cannula 3.00 07/08/17 23:00 83 07/08/17 20:36 97.4 84 20 130/69 (89) 95 07/08/17 20:00 97 Nasal Cannula 2.00 I/O 07/08/17 07/08/17 07/08/17 07/09/17 07/09/17 07/09/17 07:00 15:00 23:00 07:00 15:00 23:00 Intake Total 240 ml 1300 ml 720 ml 200 ml 1170 ml 960 ml Output Total 1600 ml 400 ml 300 ml 800 ml 625 ml Balance -1360 ml 900 ml 420 ml -600 ml 1170 ml 335 ml Intake Oral 240 ml 480 ml 960 ml IV Total 820 ml 720 ml 200 ml 1170 ml Output Urine Total 700 ml 400 ml 300 ml 300 ml 625 ml Stool Total 900 ml 500 ml Result Diagram: 07/07/17 0537 07/09/17 1411 Objective Remarks The patient is a 51 year-old male, lying in bed, in no distress. HEENT: Atraumatic, normocephalic. Pupils equal, round and reactive to light and accommodation. Conjunctivae pink. Nonicteric sclerae. Oral mucosa moist Neck: Supple. No JVD, adenopathy, thyromegaly. Trachea midline. Cardiovascular: Regular rate and rhythm. Normal S1-S2. No murmurs, rubs or gallops noted. Pulmonary exam: No wheezing. No Crackles. Abdomen: Mild distension. No Mass. Positive bowel sounds. Extremities: No cyanosis, clubbing or edema. Neuro: No focal deficit Assessment and Plan Assessment and Plan IMPRESSION: 1. Altered mental status. 2. ETOH abuse. 3. Anemia, status post EGD. 4. Thrombocytopenia secondary to liver disease. 5. Elevated AST. 6. Elevated ammonia level. 7. History of GERD and Menendez's esophagus. 8. Aspiration Pneumonia Plan : 1. PO diet as tolerated 2. Continue antibiotics and switch to PO. 3. Nebs qid , Duoneb. 4. IS at bedside q2h 5. CBC,BMP AM. 6. PFT when stable. Miesha Horan MD Jul 09, 2017 19:44
[2017-07-10] MEDS: RESP: ALBUTEROL 2.5 MG/IPRATROPIUM 0.5 MG NEB (SCH) NEB ×3 (00:56→08:00)
[2017-07-10 00:59] VITALS: BP 106/58; PULSE 70; RESP 20; TEMP 97.2; O2SAT 94
[2017-07-10] MEDS: INSULIN NovoLIN REGULAR SUPPLEMENTAL SCALE SQ SCH ×7 (02:00→21:47)
[2017-07-10] MEDS: METOCLOPRAMIDE HCL 10 MG/2 ML VIAL IV PUSH SCH ×3 (05:59→21:36)
[2017-07-10] MEDS: cloNIDine HCL 0.2 MG TAB PO SCH ×3 (05:59→21:38)
[2017-07-10] MEDS: AMOXICILLIN/CLAVULANATE K 500 MG TAB PO SCH ×3 (05:59→21:37)
[2017-07-10 06:02] VITALS: BP 117/65; PULSE 77; RESP 18; TEMP 97.8; O2SAT 97
--- NOTE | 2017-07-10 07:36 | RADRPT ---
EXAM DATE/TIME: 07/10/2017 06:31 [facility] COMPARISON: ABDOMEN KUB ONLY, July 07, 2017, 4:56. INDICATIONS : Short of breath, abdominal discomfort, evaluate ileus MEDICAL HISTORY : GI bleed, esophageal ca SURGICAL HISTORY : None. ENCOUNTER: Subsequent ACUITY: 3 days PAIN SCORE: Non-responsive. LOCATION: Bilateral abdomen FINDINGS: Supine view of the abdomen was performed. Air is seen within distended small bowel measuring up to 5 cm in diameter throughout the mid abdomen. Free air is not seen. Significant colonic dilatation is n ot seen. There is a tube overlying the lower pelvis likely related to a rectal tube. CONCLUSION: Dilated small bowel. Some degree of obstruction needs to be considered. Nikko Mason MD on July 10, 2017 at 7:32 Board Certified Radiologist. This report was verified electronically.
[2017-07-10 08:31] LABS: BICARBONATE 22.4 MEQ/L (21.0-32.0); CALCIUM 8.1 MG/DL (8.5-10.1); CREATININE 2.33 MG/DL (0.60-1.30)
[2017-07-10 08:59] VITALS: BP 119/61; PULSE 82; RESP 20; TEMP 97.3; O2SAT 97
[2017-07-10] MEDS: REMOVE OLD PATCH T-DERMAL SCH (09:00)
[2017-07-10] MEDS ORDERED: DIATRIZOATE MEGLUM/DIATRIZOATE SOD 120 ML BTL (for RAD DIAG) PO ONE ×2 (09:30→10:40)
[2017-07-10] MEDS: LACTULOSE SYRUP 20 GM/30 ML CUP PO SCH ×3 (09:48→18:21)
[2017-07-10] MEDS: PANTOPRAZOLE SODIUM 40 MG VIAL IV SCH ×2 (09:48→21:35)
[2017-07-10] MEDS: SODIUM CHLORIDE 0.9% FLUSH 10 ML FLUSH IV FLUSH SCH ×2 (09:49→21:40)
[2017-07-10] MEDS: RIFAXIMIN 550 MG TAB PO SCH ×2 (09:49→21:37)
[2017-07-10] MEDS: guaiFENesin E.R. 600 MG TAB PO SCH ×2 (09:49→21:40)
[2017-07-10] MEDS: POLYETHYLENE GLYCOL 17 GM PKG PO SCH (09:49)
[2017-07-10] MEDS: NICOTINE 14 MG/24 HR PATCH T-DERMAL SCH (09:49)
[2017-07-10] MEDS: THIAMINE HCL 100 MG TAB PO SCH (09:49)
[2017-07-10] MEDS: DOCUSATE SODIUM 50 MG/SENNA 8.6 MG TAB PO SCH ×2 (09:49→21:37)
[2017-07-10] MEDS: traMADol HCL 50 MG TAB PO PRN ×2 (09:52→22:44)
[2017-07-10] MEDS: LORazepam 2 MG/ML VIAL IV PUSH PRN (10:17)
--- NOTE | 2017-07-10 11:32 | HHI.PR ---
Subjective Remarks ill looking- awake and alert. still with some wheezing. no fever. still with abdominal distention. d/w the RN at the bedside. Objective Vitals Vital Signs Date Time Temp Pulse Resp B/P (MAP) Pulse Ox O2 Delivery O2 Flow Rate FiO2 07/10/17 08:59 97.3 82 20 119/61 (80) 97 07/10/17 06:02 97.8 77 18 117/65 (82) 97 07/10/17 00:59 97.2 70 20 106/58 (74) 94 07/09/17 20:17 97.4 78 20 116/66 (83) 97 07/09/17 19:43 94 Nasal Cannula 3.00 07/09/17 17:56 92 Nasal Cannula 07/09/17 16:52 97.3 82 20 130/74 (92) 92 07/09/17 15:35 90 07/09/17 12:28 98.5 75 20 120/68 (85) 98 I/O 07/09/17 07/09/17 07/09/17 07/10/17 07/10/17 07/10/17 07:00 15:00 23:00 07:00 15:00 23:00 Intake Total 200 ml 1170 ml 960 ml Output Total 800 ml 625 ml 1600 ml Balance -600 ml 1170 ml 335 ml -1600 ml Intake Oral 960 ml IV Total 200 ml 1170 ml Output Urine Total 300 ml 625 ml 650 ml Stool Total 500 ml 950 ml Result Diagram: 07/07/17 0537 07/10/17 0705 Imaging Last Impressions Abdomen X-Ray 07/10/17 06 Signed Impressions: Service Date/Time: Monday, July 10, 2017 06:31 - CONCLUSION: Dilated small bowel. Some degree of obstruction needs to be considered. Nikko Mason MD Chest X-Ray 07/09/17 0600 Signed Impressions: Service Date/Time: July 06:10 - CONCLUSION: 1. Minimal basilar dependent density. Differential diagnosis includes atelectasis. Findings similar to prior exam. Albert Walden MD Chest CT 07/05/17 5626 Signed Impressions: Service Date/Time: Wednesday, July 05, 2017 18:11 - CONCLUSION: 1. Segmental consolidation with volume loss medial right lower lung. 2. Atelectasis or basilar consolidation left lower lung. 3. Mild amount of ascites. Caesar Ann MD Abdomen MRI 07/02/17 0000 Signed Impressions: Service Date/Time: June 16:34 - CONCLUSION: 1. Hepatomegaly and hepatic steatosis. No focal mass identified. 2. Moderate splenomegaly. 3. Small amount of ascites. 4. Small bilateral pleural effusions. Wilbert Howe MD Ankle X-Ray 07/01/17 0000 Signed Impressions: Service Date/Time: Saturday, July 01, 2017 10:22 - CONCLUSION: Soft tissue mass noted to be fluid filled on ultrasound 09/10/2012. Colten Nelson MD FACR Head CT 06/30/17 0000 Signed Impressions: Service Date/Time: Saturday, July 01, 2017 02:24 - CONCLUSION: 1. No acute intracranial abnormalities. Previous fixation left maxillary sinus. Albert Walden MD Cervical Spine CT 06/30/17 0000 Signed Impressions: Service Date/Time: Saturday, July 01, 2017 02:24 - CONCLUSION: Normal examination for a patient of this age. Albert Walden MD Abdomen/Pelvis CT 06/29/17 0000 Signed Impressions: Service Date/Time: Thursday, June 29, 2017 12:52 - CONCLUSION: 1. Hepatosplenomegaly and varices noted as above. 2. Atherosclerosis. 3. Abnormal diffuse heterogeneous appearance of the liver which may be related to either marked hepatic steatosis in an inhomogeneous fashion versus steatosis and underlying diffuse liver masses. An MRI of the abdomen with and without contrast may be helpful for further evaluation of this finding. Navjot Chirinos MD Objective Remarks GENERAL: looks better today. CARDIOVASCULAR: Regular rate and regular rhythm without murmurs, gallops, or rubs. RESPIRATORY: diffuse wheezing with occasional cough GASTROINTESTINAL: Abdomen soft, non-tender, distended. Normal, active bowel sounds MUSCULOSKELETAL: Extremities without clubbing, cyanosis, or edema. NEURO: awake and more alert today. Procedures 06/30/17 EGD Medications and IVs Current Medications Sodium Chloride (NS Flush) 2 ml UNSCH PRN IV FLUSH FLUSH AFTER USING IV ACCESS ; Start 06/29/17 at 11:00; Stop 06/29/17 at 15:56; Status DC Iohexol (Omnipaque 350 Inj) 92 ml STK-MED ONCE IVCONTRAST Last administered on 06/29/17 10:21; Start 06/29/17 at 10:21; Stop 06/29/17 at 13:05; Status DC Octreotide Acetate (SandoSTATIN INJ) 100 mcg ONCE ONCE IV PUSH Last administered on 06/29/17 14:31; Start 06/29/17 at 14:15; Stop 06/29/17 at 14:27 ; Status DC Pantoprazole Sodium (Protonix Inj) 80 mg ONCE ONCE IV PUSH Last administered on 06/29/17 14:31; Start 06/29/17 at 14:15; Stop 06/29/17 at 14:27; Status DC Clonidine (Catapres) 0.1 mg Q4H PRN PO SBP>160, DBP>90; Start 06/29/17 at 16:00 Sodium Chloride 1,000 ml @ 100 mls/hr Q10H IV Last administered on 06/30/17 12:00; Start 06/29/17 at 16:00; Stop 06/30/17 at 17:09; Status DC Sodium Chloride (NS Flush) 2 ml UNSCH PRN IV FLUSH FLUSH AFTER USING IV ACCESS ; Start 06/29/17 at 16:00 Sodium Chloride (NS Flush) 2 ml BID IV FLUSH Last administered on 07/10/17 09: 49; Start 06/29/17 at 21:00 Acetaminophen (Tylenol) 650 mg Q4H PRN PO TEMP > 100.4; Start 06/29/17 at 15:15 Ondansetron HCl (Zofran Inj) 4 mg Q6H PRN IVP NAUSEA OR VOMITING Last administered on 07/08/17 08:43; Start 06/29/17 at 15:15 Prochlorperazine (Compazine Supp) 25 mg Q12H PRN RECTAL NAUSEA OR VOMITING; Start 06/29/17 at 15:15 Acetaminophen (Tylenol) 650 mg Q6H PRN PO PAIN SCALE 1 TO 2 Last administered on 06/30/17 04:52; Start 06/29/17 at 15:15 Morphine Sulfate (Morphine Inj) 2 mg Q3H PRN IV PUSH Pain 3-5; if unable to take PO Last administered on 07/08/17 08:43; Start 06/29/17 at 16:00 Morphine Sulfate (Morphine Inj) 4 mg Q3H PRN IV PUSH Pain 6-10;if unable to take PO; Start 06/29/17 at 16:00 Tramadol HCl (Ultram) 50 mg Q4H PRN PO PAIN SCALE 3 TO 5 Last administered on 07/05/17 08:26; Start 06/29/17 at 16:00 Tramadol HCl (Ultram) 100 mg Q4H PRN PO PAIN SCALE 6 TO 10 Last administered on 07/10/17 09:52; Start 06/29/17 at 16:00 Naloxone HCl (Narcan Inj) 0.4 mg UNSCH PRN IV PUSH SEE LABEL COMMENTS; Start at 16:00 Senna/Docusate Sodium (Brittany-Colace) 1 tab BID PO Last administered on 09:49; Start 06/29/17 at 21:00 Magnesium Hydroxide (Milk Of Magnesia Liq) 30 ml Q12H PRN PO MILD - MODERATE CONSTIPATION; Start 06/29/17 at 15:15 Sennosides (Senokot) 17.2 mg Q12H PRN PO MODERATE - SEVERE CONSTIPATION; Start 06/29/17 at 15:15 Bisacodyl (Dulcolax Supp) 10 mg DAILY PRN RECTAL SEVERE CONSITIPATION; Start at 15:15 Lactulose (Lactulose Liq) 30 ml DAILY PRN PO SEVERE CONSITIPATION; Start at 15:15 Flumazenil (Romazicon Inj) 0.2 mg Q1M PRN IV PUSH SEE LABEL COMMENTS; Start at 16:00 Lorazepam (Ativan) 1 mg Q4H PRN PO CIWA 8 - 10 Last administered on 06/30/17 09:32; Start 06/29/17 at 16:00 Lorazepam (Ativan Inj) 1 mg Q4H PRN IV PUSH CIWA 8 - 10 Last administered on 10:17; Start 06/29/17 at 16:00 Lorazepam (Ativan) 2 mg Q2H PRN PO CIWA 11-14; Start 06/29/17 at 16:00 Lorazepam (Ativan Inj) 2 mg Q2H PRN IV PUSH CIWA 11-14 Last administered on 19:33; Start 06/29/17 at 16:00 Lorazepam (Ativan Inj) 2 mg Q1H PRN IV PUSH CIWA 15-20; Start 06/29/17 at 16:00 Lorazepam (Ativan Inj) 2 mg Q15M PRN IV PUSH CIWA > 20 Last administered on 02:48; Start 06/29/17 at 16:00 Haloperidol Lactate (Haldol Inj) 2 mg Q15M PRN IM SEE LABEL COMMENTS Last administered on 07/06/17 01:12; Start 06/29/17 at 16:00 Sodium Chloride (NS Flush) 2 ml UNSCH PRN IV FLUSH FLUSH AFTER USING IV ACCESS ; Start 06/29/17 at 15:15; Status UNV Sodium Chloride (NS Flush) 2 ml BID IV FLUSH ; Start 06/29/17 at 21:00; Status UNV Folic Acid (Folate) 1 mg DAILY PO Last administered on 07/04/17 10:08; Start 06/29/17 at 16:00; Stop 07/04/17 at 15:59; Status DC Thiamine HCl (Vitamin B1) 100 mg DAILY PO Last administered on 07/10/17 09:49 ; Start 06/29/17 at 16:00; Status Future hold Multivitamins/ Minerals Therapeutic (Theragran M Tab) 1 tab DAILY PO Last administered on 07/04/17 10:08; Start 06/29/17 at 16:00; Stop 07/04/17 at 15:59 ; Status DC Clonidine (Catapres) 0.1 mg Q6H PRN PO SEE LABEL COMMENTS; Start 06/29/17 at 16 :00 Sodium Chloride (NS Flush) 2 ml UNSCH PRN IV FLUSH FLUSH AFTER USING IV ACCESS ; Start 06/29/17 at 15:15; Status UNV Sodium Chloride (NS Flush) 2 ml BID IV FLUSH ; Start 06/29/17 at 21:00; Status UNV Pantoprazole Sodium (Protonix Inj) 40 mg BID IV Last administered on 07/10/17 09:48; Start 06/29/17 at 21:00 Albuterol/ Ipratropium (Duoneb Neb) 1 ampule Q4HR NEB PRN NEB sob; Start at 15:30; Stop 07/01/17 at 07:05; Status DC Guaifenesin (Mucinex Er) 600 mg BID PO Last administered on 07/10/17 09:49; Start 06/29/17 at 21:00 Nicotine (Habitrol 14 Mg Patch.24 Hr) 1 patch ONCE ONCE T-DERMAL Last administered on 06/29/17 18:04; Start 06/29/17 at 16:00; Stop 06/29/17 at 16:01 ; Status DC Nicotine (Habitrol 14 Mg Patch.24 Hr) 1 patch DAILY T-DERMAL Last administered on 07/10/17 09:49; Start 06/30/17 at 09:00 Miscellaneous Information 1 DAILY T-DERMAL Last administered on 07/10/17 09:00 ; Start 06/30/17 at 09:00 Rifaximin (Xifaxan) 550 mg BID PO Last administered on 07/10/17 09:49; Start 06/30/17 at 11:45 Lactulose (Lactulose Liq) 30 ml BID PO Last administered on 07/06/17 09:02; Start 06/30/17 at 21:00; Stop 07/06/17 at 15:21; Status DC Miscellaneous Information ALL NURSING DEPARTME... UNSCH PRN .XX SEE LABEL COMMENTS; Start 06/30/17 at 12:56; Stop 07/01/17 at 12:55; Status DC Chlordiazepoxide (Librium) 50 mg Q6H PO Last administered on 07/04/17 10:08; Start 06/30/17 at 16:00; Stop 07/04/17 at 16:15; Status DC Dexmedetomidine HCl 200 mcg/ Sodium Chloride 50 ml @ 4.86 mls/hr TITRATE PRN IV Desired RASS; Start 06/30/17 at 16:00; Stop 06/30/17 at 16:25; Status DC Dexmedetomidine HCl 1000 mcg/ Sodium Chloride 250 ml @ 4.86 mls/hr TITRATE PRN IV Desired RASS Last administered on 07/01/17 09:03; Start 06/30/17 at 16: 30; Stop 07/03/17 at 09:48; Status DC Dextrose/Sodium Chloride 1,000 ml @ 84 mls/hr [id number] IV Last administered on 07/03/17 04:36; Start 06/30/17 at 17:15; Stop 07/03/17 at 09:48; Status DC Dextrose (D50w (Vial) Inj) 50 ml UNSCH PRN IV PUSH HYPOGLYCEMIA-SEE COMMENTS; Start 06/30/17 at 17:15 Glucagon (Glucagon Inj) 1 mg UNSCH PRN OTHER HYPOGLYCEMIA-SEE COMMENTS; Start 06/30/17 at 17:15 Insulin Human Regular (NovoLIN R SUPPLEMENTAL SCALE) 1 Q4H SQ ; Start 06/30/17 at 18:00 Albuterol/ Ipratropium (Duoneb Neb) 1 ampule Q2HR NEB PRN NEB sob Last administered on 07/03/17 23:32; Start 07/01/17 at 07:15; Stop 07/04/17 at 16:21 ; Status DC Thiamine HCl 100 mg/Sodium Chloride 101 ml @ 101 mls/hr DAILY IV Last administered on 07/03/17 09:12; Start 07/01/17 at 09:00; Stop 07/04/17 at 08:59 ; Status DC Albuterol/ Ipratropium (Duoneb Neb) 1 ampule Q6HR NEB NEB Last administered on 07/04/17 09:47; Start 07/01/17 at 10:00; Stop 07/04/17 at 14:52; Status DC Potassium Chloride (KCl) 80 meq ONCE ONCE PO Last administered on 07/01/17 09 :00; Start 07/01/17 at 07:15; Stop 07/01/17 at 07:37; Status DC Potassium Chloride 100 ml @ 50 mls/hr Q2H PRN IV For Potassium 2.8 - 3.2 mEq/L ; Start 07/01/17 at 09:30; Stop 07/08/17 at 08:16; Status DC Potassium Chloride 100 ml @ 50 mls/hr Q2H PRN IV For Potassium 2.8 - 3.2 mEq/ L Last administered on 07/08/17 06:53; Start 07/01/17 at 09:30; Stop 07/08/17 at 08:16; Status DC Potassium Bicarb/ Potassium Chloride (K-Lyte Cl Eff) 50 meq UNSCH PRN PO For Potassium 3.3 - 3.5 mEq/L Last administered on 07/01/17 17:53; Start 07/01/17 at 09:30 Potassium Chloride 100 ml @ 25 mls/hr UNSCH PRN IV For Potassium 3.3 - 3.5 mEq /L; Start 07/01/17 at 09:30; Stop 07/08/17 at 08:16; Status DC Potassium Chloride 100 ml @ 50 mls/hr Q2H PRN IV For Potassium 3.3 - 3.5 mEq/ L Last administered on 07/04/17t 18:26; Start 07/01/17 at 09:30; Stop 07/08/17 at 08:16; Status DC Magnesium Sulfate 4 gm/Sodium Chloride 100 ml @ 50 mls/hr UNSCH PRN IV For Magnesium 0.9 - 1.1 mg/dL; Start 07/01/17 at 09:30; Stop 07/08/17 at 08:16; Status DC Magnesium Oxide (Mag-Ox) 800 mg UNSCH PRN PO For Magnesium 1.2 - 1.6 mg/dL; Start 07/01/17 at 09:30; Stop 07/08/17 at 08:16; Status DC Magnesium Sulfate 2 gm/Sodium Chloride 100 ml @ 50 mls/hr UNSCH PRN IV For Magnesium 1.2 - 1.6 mg/dL; Start 07/01/17 at 09:30; Stop 07/08/17 at 08:16; Status DC Potassium Phosphate (K-Phos) 2,000 mg Q4H PRN PO For Phosphorus < 2.5 mg/dL; Start 07/01/17 at 09:30; Stop 07/08/17 at 08:16; Status DC Sodium Phosphate 30 mmol/Sodium Chloride 250 ml @ 42 mls/hr UNSCH PRN IV For Phosphorus < 2.5 mg/dL; Start 07/01/17 at 09:30; Stop 07/08/17 at 08:16; Status DC Potassium Phosphate (K-Phos) 2,000 mg UNSCH PRN PO/TUBE SEE LABEL COMMENTS; Start 07/01/17 at 09:30; Stop 07/08/17 at 08:16; Status DC Potassium Phosphate 30 mmol/ Sodium Chloride 260 ml @ 42 mls/hr UNSCH PRN IV SEE LABEL COMMENTS; Start 07/01/17 at 09:30; Stop 07/08/17 at 08:16; Status DC Lidocaine HCl (Xylocaine-Mpf 1% Inj) 5 ml STK-MED ONCE OTHER ; Start 06/30/17 at 12:00; Stop 07/01/17 at 15:24; Status DC Propofol (Diprivan 200 Mg/20 ml Inj) 400 mg STK-MED ONCE IV ; Start 06/30/17 at 12:00; Stop 07/01/17 at 15:24; Status DC Metoclopramide HCl (Reglan Inj) 10 mg Q8HR IV PUSH Last administered on 05:59; Start 07/02/17 at 09:00 Polyethylene Glycol (Miralax) 17 gm DAILY PO Last administered on 07/10/17 09: 49; Start 07/02/17 at 09:00 Gadodiamide (Omniscan Pf Inj) 19 ml STK-MED ONCE IVCONTRAST Last administered on 07/02/17 17:13; Start 07/02/17 at 17:13; Stop 07/02/17 at 17:14; Status DC Sodium Biphosphate/ Sodium Phosphate (Fleets Enema (Adult)) 133 ml ONCE ONCE RECTAL Last administered on 07/03/17 17:23; Start 07/03/17 at 17:00; Stop at 17:01; Status DC Furosemide (Lasix Inj) 40 mg NOW ONCE IV PUSH Last administered on 07/03/17 19:20; Start 07/03/17 at 19:15; Stop 07/03/17 at 19:16; Status DC Dexmedetomidine HCl 200 mcg/ Sodium Chloride 52 ml @ 5 mls/hr TITRATE PRN IV SEDATION Last administered on 07/04/17 05:45; Start 07/03/17 at 22:00; Stop at 16:18; Status DC Acetylcysteine (Mucomyst 10% Neb) 2 ml Q6HR NEB NEB Last administered on 07:44; Start 07/04/17 at 04:00; Stop 07/05/17 at 14:10; Status DC Vancomycin HCl 1000 mg/Sodium Chloride 250 ml @ 250 mls/hr ONCE ONCE IV ; Start 07/04/17 at 08:30; Stop 07/04/17 at 09:29; Status UNV Pharmacy Profile Note 0 ml @ 0 mls/hr UNSCH OTHER ; Start 07/04/17 at 08:30; Stop 07/09/17 at 11:30; Status DC Piperacillin Sod/ Tazobactam Sod 50 ml @ 100 mls/hr Q8H IV Last administered on 07/09/17 09:36; Start 07/04/17 at 09:00; Stop 07/09/17 at 11:35; Status DC Sodium Chloride 1,000 ml @ 60 mls/hr [id number] IV Last administered on 10:06; Start 07/04/17 at 08:30; Stop 07/04/17 at 16:18; Status DC Vancomycin HCl 1700 mg/Sodium Chloride 517 ml @ 250 mls/hr Q12H IV Last administered on 07/05/17 23:08; Start 07/04/17 at 11:00; Stop 07/06/17 at 11:38 ; Status DC Miscellaneous Information SPECIFIC LAB TO BE DRAWN:VANCOMY... ONCE ONCE .XX ; Start 07/05/17 at 22:45; Stop 07/05/17 at 22:46; Status DC Metronidazole 100 ml @ 100 mls/hr Q8H IV Last administered on 07/09/17 07:15 ; Start 07/04/17 at 16:00; Stop 07/09/17 at 11:35; Status DC Albuterol/ Ipratropium (Duoneb Neb) 1 ampule Q6HR WHILE AWAKE NEB NEB Last administered on 07/04/17 15:21; Start 07/04/17 at 20:00; Stop 07/04/17 at 20:00 ; Status DC Furosemide (Lasix Inj) 40 mg ONCE ONCE IV PUSH Last administered on 07/04/17 15:36; Start 07/04/17 at 15:30; Stop 07/04/17 at 15:31; Status DC Furosemide (Lasix Inj) 40 mg STK-MED ONCE .ROUTE ; Start 07/04/17 at 15:19; Stop 07/04/17 at 15:20; Status DC Diltiazem HCl (Cardizem Inj) 10 mg ONCE ONCE IV Last administered on 16:07; Start 07/04/17 at 16:00; Stop 07/04/17 at 16:02; Status DC Diltiazem HCl (Cardizem Inj) 25 mg STK-MED ONCE .ROUTE ; Start 07/04/17 at 16:00 ; Stop 07/04/17 at 16:01; Status DC Chlordiazepoxide (Librium) 25 mg Q12H PO Last administered on 07/06/17 02:31; Start 07/05/17 at 04:00; Stop 07/06/17 at 10:08; Status DC Albuterol/ Ipratropium (Duoneb Neb) 1 ampule Q4HR NEB NEB ; Start 07/04/17 at 20:00; Stop 07/05/17 at 06:22; Status DC Albuterol/ Ipratropium (Duoneb Neb) 1 ampule Q2HR NEB PRN NEB SHORTNESS OF BREATH Last administered on 07/09/17 05:25; Start 07/04/17 at 16:15 Clonidine (Catapres) 0.2 mg Q8HR PO Last administered on 07/09/17 22:35; Start 07/04/17 at 22:00 Diltiazem HCl (Cardizem Inj) 10 mg ONCE ONCE IV Last administered on 16:22; Start 07/04/17 at 16:15; Stop 07/04/17 at 16:20; Status DC Albuterol/ Ipratropium (Duoneb Neb) 1 ampule Q6HR WHILE AWAKE NEB NEB Last administered on 07/08/17 08:59; Start 07/04/17 at 20:00; Stop 07/08/17 at 19:59 ; Status DC Bumetanide (Bumex Inj) 1 mg ONCE ONCE IV PUSH Last administered on 07/05/17 12:35; Start 07/05/17 at 11:30; Stop 07/05/17 at 11:31; Status DC Chlordiazepoxide (Librium) 25 mg DAILY PO Last administered on 07/07/17 08:21 ; Start 07/07/17 at 09:00; Stop 07/08/17 at 08:16; Status DC Vancomycin HCl 2000 mg/Sodium Chloride 520 ml @ 257.5 mls/ hr Q12H IV Last administered on 07/09/17 03:43; Start 07/06/17 at 13:00; Stop 07/09/17 at 11:30 ; Status DC Miscellaneous Information SPECIFIC LAB TO BE ... ONCE ONCE .XX Last administered on 07/08/17 12:45; Start 07/08/17 at 12:45; Stop 07/08/17 at 12:46 ; Status DC Lactulose (Lactulose Liq) 30 ml TID PO Last administered on 07/10/17 09:48; Start 07/06/17 at 18:00 Chlordiazepoxide (Librium) 20 mg DAILY PO Last administered on 07/10/17 09:48 ; Start 07/08/17 at 09:00 Miscellaneous Information SPECIFIC LAB TO BE DRAWN:VANCOMYCIN TROUGH DATE TO... ONCE ONCE .XX ; Start 07/09/17 at 12:45; Stop 07/09/17 at 12:46; Status Cancel Amoxicillin/ Clavulanate Potassium (Augmentin) 500 mg Q8HR PO Last administered on 07/10/17 05:59; Start 07/09/17 at 14:00 Albuterol/ Ipratropium (Duoneb Neb) 1 ampule Q4HR NEB NEB Last administered on 07/10/17 05:42; Start 07/09/17 at 12:00 Methylnaltrexone [place] (Relistor Inj) 12 mg ONCE ONCE SQ Last administered on 07/09/17 13:41; Start 07/09/17 at 12:45; Stop 07/09/17 at 12:52; Status DC Diatrizoate Meglum/ Diatrizoate Sod ( Gastroview Liq) 120 ml STK-MED ONCE PO Last administered on 07/10/17 09:30; Start 07/10/17 at 09:30; Stop 07/10/17 at 11:06; Status DC A/P Problem List: (1) Esophageal varices ICD Code: I85.00 - Esophageal varices without bleeding (2) Gastrointestinal bleed ICD Code: K92.2 - Gastrointestinal hemorrhage, unspecified (3) GERD Status: Chronic (4) Alcohol use ICD Code: Z78.9 - Other specified health status Status: Acute (5) Tobacco abuse ICD Code: Z72.0 - Tobacco use Status: Chronic (6) Jaundice ICD Code: R17 - Unspecified jaundice (7) Gastritis ICD Code: K29.70 - Gastritis, unspecified, without bleeding Status: Acute (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 taper down Librium Continue Thiamine 100mg daily CT brain 07/01 revealed no acute intracranial findings. Patient with history of right zygomatic/maxillary sinus surgery 2015 CT C-spine 07/01 negative findings Tramadol 50-100 mg every 4 hours as needed pain Atherosclerotic vascular disease Dyslipidemia Hypertension Monitor HR and BP keep MAP>65mmHg On Clonidine 0.2mg Q8 for BP control Possible Aspiration pneumonia Tobaccoism History of asthma/reactive airway disease Continue with oxygen keep sat> 92% continue neb treatments. switch to po Augmentin Pulm is following-/ Aung acute kidney injury non-oliguric- will monitor the renal function closely; repeat BMP in am. consult nephrology . 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 Likely esophagitis/Mennedez' s not biopsied. Pantoprazole 40 mg IV daily for GI prophylaxis continue Lactulose and Xifaxan . CT abdomen/pelvis revealed splenomegaly 19.3 cm. varices at the esophageal hiatus, gastric ligament and left upper quadrant. Renal splenic shunt appreciated. MRI abdomen showed Hepatomegaly and hepatic steatosis. No focal mass identified. Moderate splenomegaly. Small amount of ascites.Small bilateral pleural effusions. Liver workup including JOSE, ASMA, Hep profile all negative small bowel series pending. Elevated TSH 6.7. History of gout Sliding-scale insulin Novulin R every 4 hrs for maintain euglycemia hypokalemia will replace. Macrocytic anemia Thrombocytopenia chronic likely secondary to underlying EtOH /cirrhotic liver disease-(improving) Monitor CBC/coags No signs of hemolysis/consumption thrombocytopenia. This appears to be a chronic condition Right ankle pain X-ray right ankle rule out fracture-Soft tissue mass noted to be fluid filled on ultrasound 09/10/2012. No acute fracture PT evaluate and treat Prophylaxis - GI - pantoprazole - DVT - SCD/holding pharmacological prophylaxis in light of thrombocytopenia palliative care evaluation appreciated. patient is ill-looking. d/w the patient regarding the code status and he wants to stay on full-code status. d/w the RN. Tyson Boyd MD Jul 10, 2017 11:32
[2017-07-10] MEDS ORDERED: LORazepam 0.5 MG TAB PO PRN (12:00)
[2017-07-10 12:55] VITALS: BP 121/68; PULSE 84; RESP 20; TEMP 97.4; O2SAT 95
[2017-07-10] MEDS ORDERED: POTASSIUM CHLORIDE 20 MEQ CONTROLLED RELEASE TAB PO ONE (13:00)
--- NOTE | 2017-07-10 13:44 | HHI.HCPN ---
Spoke with patient's son, Nikko. He reports all the children came to visit last night. They decided to appoint Andrzej as the point of contact as he has been around their father the most. 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 Nikko reports he will be in surgery from 2- 430pm today but would be available to meet afterwards or discuss by phone prior. Palliative SCOURING TRAIN OPERATOR updated on above. Received call from daughter, Kisha. She opts out of medical decision making and confirms siblings have decided to defer to Andrzej. Palliative care will continue to follow throughout hospitalization. Ladonna Shafer, NURSE INFORMATICIST Jul 10, 2017 13:44
--- NOTE | 2017-07-10 13:44 | HHI.HCPN ---
Spoke with patient's son, Nikko. He reports all the children came to visit last night. They decided to appoint Andrzej as the point of contact as he has been around their father the most. 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 Nikko reports he will be in surgery from 2- 430pm today but would be available to meet afterwards or discuss by phone prior. Palliative REPAIRER SHOE STICKS updated on above. Received call from daughter, Kisha. She opts out of medical decision making and confirms siblings have decided to defer to Andrzej. Palliative care will continue to follow throughout hospitalization. Ladonna Shafer, WAREHOUSE UNLOADER Jul 10, 2017 13:44
--- NOTE | 2017-07-10 13:44 | HHI.HCPN ---
Spoke with patient's son, Nikko. He reports all the children came to visit last night. They decided to appoint Andrzej as the point of contact as he has been around their father the most. 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 Nikko reports he will be in surgery from 2- 430pm today but would be available to meet afterwards or discuss by phone prior. Palliative COMMUNICATIONS TOWER CLIMBER updated on above. Received call from daughter, Kisha. She opts out of medical decision making and confirms siblings have decided to defer to Andrzej. Palliative care will continue to follow throughout hospitalization. Ladonna Shafer, TOWEL HEMMER Jul 10, 2017 13:44
--- NOTE | 2017-07-10 15:24 | HHI.HCPN ---
Reason for visit a. To assist with evaluation and management of symptoms including: pain, encephalopathy, and dyspnea b. To assist medical decision maker(s) with: better understanding of current medical conditions; weighing benefits/burdens of medical treatment options; making medical treatment decisions. . Subjective/Interval History Mr. Martin is a 51-year-old male with a history of depression, GERD, hyperlipidemia, pancreatitis, Menendez's esophagus, gastritis, psychiatric disorders, chronic abdominal pain, gout, history of varices and a possible history of esophageal cancer-patient is a poor historian. He presented to [facility] ED on 06/29/2017 for evaluation of nonspecific abdominal pain. Patient admitted for esophageal varices, GI bleed, and EtOH withdrawal. Patient examined in room, no family at bedside, bedside RN present. RN provided update regarding patient and patient's current clinical status. Patient oriented to self and place at the time of the visit. RN has reported his mentation has been waxing and waning with intermittent moments of lucidity. Patient's abdomen is distended and firm, abdominal XR from this morning revealed dilated small bowel with some degree of obstruction needs to be considered. Pending abdominal series results ordered by GI to R/O obstruction versus severe ileus. Palliative Care continues to follow to assist with symptom management and to discuss with the patient/family the benefits and burdens of his current illnesses and the options regarding future care. . Family/friend interactions Telephone update provided to patient's son Andrzej. Update to patient's son Nikko later this afternoon pending the completion of his workday. 1640: Message left on voicemail for patient's son Nikko awaiting return phone call. Patient's son Nikko updated via telephone 1700. . Advance Directives Advance Directive Specifics Documented care wishes: No known documented care wishes. . Objective Vital Signs Date Time Temp Pulse Resp B/P (MAP) Pulse Ox O2 Delivery O2 Flow Rate FiO2 07/10/17 12:55 97.4 84 20 121/68 (85) 95 07/10/17 08:59 97.3 82 20 119/61 (80) 97 07/10/17 06:02 97.8 77 18 117/65 (82) 97 07/10/17 00:59 97.2 70 20 106/58 (74) 94 07/09/17 20:17 97.4 78 20 116/66 (83) 97 07/09/17 19:43 94 Nasal Cannula 3.00 07/09/17 17:56 92 Nasal Cannula 07/09/17 16:52 97.3 82 20 130/74 (92) 92 07/09/17 15:35 90 Intake & Output 07/10/17 07/10/17 07:00 19:00 Output Total 1600 ml Balance -1600 ml Output Urine Total 650 ml Stool Total 950 ml . Physical Exam CONSTITUTIONAL/GENERAL: This is an adequately nourished, middle aged male in no acute distress. TUBES/LINES/DRAINS: Sanchez catheter, rectal tube, PIV 2 SKIN: + Jaundice EYES: Pupils equal and round. + scleral icterus. No injection or drainage. ENT: Hearing grossly normal. Nose without bleeding or purulent drainage. CARDIOVASCULAR: Regular rate and rhythm without murmurs, gallops, or rubs. No JVD. Peripheral pulses symmetric. RESPIRATORY/CHEST: Breath sounds diminished bilaterally; respirations shallow, expiratory wheezes. GASTROINTESTINAL: Abdomen is distended; limited palpation secondary to tenderness. Hypoactive bowel sounds. Rectal tube in place. GENITOURINARY: Condom catheter. MUSCULOSKELETAL: Extremities without clubbing, cyanosis, or edema. No mottling or clubbing. NEUROLOGICAL: Drowsy, arousable with verbal stimulation. Oriented to person and to place. PSYCHIATRIC: No obvious anxiety/depression. no apparent hallucinations or other psychotic thought process. . Diagnostic Tests Laboratory Laboratory Tests Test 07/07/17 23:17 07/08/17 17:12 07/09/17 08:33 07/09/17 12:38 Potassium Level 3.2 MEQ/L (3.5-5.1) 3.5 MEQ/L (3.5-5.1) Blood Urea Nitrogen 15 MG/DL (7-18) Creatinine 1.20 MG/DL (0.60-1.30) 1.83 MG/DL (0.60-1.30) Random Glucose 94 MG/DL (74-106) Calcium Level 7.7 MG/DL (8.5-10.1) Sodium Level 143 MEQ/L (136-145) Chloride Level 111 MEQ/L (98-107) Carbon Dioxide Level 23.2 MEQ/L (21.0-32.0) Anion Gap 9 MEQ/L (5-15) Estimat Glomerular Filtration Rate 64 ML/MIN (>89) 39 ML/MIN (>89) Vancomycin Level Trough 45.1 MCG/ML (5.0-10.0) Urine Color YELLOW (YELLW/STRAW) Urine Turbidity HAZY (CLEAR) Urine pH 5.0 (5.0-8.5) Urine Specific [place] 1.012 (1.002-1.035) Urine Protein 30 mg/dL (NEG-TRACE) Urine Glucose (UA) NEG mg/dL (NEG) Urine Ketones NEG mg/dL (NEG) Urine Occult Blood SMALL (NEG) Urine Nitrite NEG (NEG) Urine Bilirubin NEG (NEG) Urine Urobilinogen LESS THAN 2.0 MG/DL (LESS Urine Leukocyte Esterase NEG (NEG) Urine RBC 2 /hpf (0-3) Urine WBC 1 /hpf (0-5) Urine Amorphous Sediment RARE Urine Bacteria OCC /hpf (NONE) Microscopic Urinalysis Comment CATH-CULTURE IND Urine Random Sodium 27 MEQ/L Test 07/09/17 14:11 07/10/17 07:05 Blood Urea Nitrogen 18 MG/DL (7-18) 18 MG/DL (7-18) Creatinine 2.00 MG/DL (0.60-1.30) 2.33 MG/DL (0.60-1.30) Random Glucose 92 MG/DL (74-106) 121 MG/DL (74-106) Calcium Level 7.9 MG/DL (8.5-10.1) 8.1 MG/DL (8.5-10.1) Sodium Level 142 MEQ/L (136-145) 142 MEQ/L (136-145) Potassium Level 3.6 MEQ/L (3.5-5.1) 3.3 MEQ/L (3.5-5.1) Chloride Level 110 MEQ/L (98-107) 110 MEQ/L (98-107) Carbon Dioxide Level 23.0 MEQ/L (21.0-32.0) 22.4 MEQ/L (21.0-32.0) Anion Gap 9 MEQ/L (5-15) 10 MEQ/L (5-15) Estimat Glomerular Filtration Rate 36 ML/MIN (>89) 30 ML/MIN (>89) Total Creatine Kinase 23 U/L (39-308) Result Diagram: 07/07/17 0537 07/10/17 0705 Microbiology Microbiology Date/Time Source Procedure Growth Status 07/09/17 12:38 Urine Catheterized Urine Urine Culture - Preliminary NO GROWTH IN 24 HOURS. Resulted Imaging Last 72 hours Impressions Abdomen X-Ray 07/10/17 06 Signed Impressions: Service Date/Time: Monday, July 10, 2017 06:31 - CONCLUSION: Dilated small bowel. Some degree of obstruction needs to be considered. Nikko Mason MD Chest X-Ray 07/09/17 06 Signed Impressions: Service Date/Time: July 06:10 - CONCLUSION: 1. Minimal basilar dependent density. Differential diagnosis includes atelectasis. Findings similar to prior exam. Albert Walden MD Procedures 06/30/17: EGD . Assessment and Plan Disease Oriented Problem List: (1) Gastrointestinal bleed (2) Esophageal varices (3) Tobacco abuse (4) Jaundice (5) Gastritis (6) Menendez esophagus Symptom Scale: (1) Pain (2) Dyspnea (3) Encephalopathy Pertinent Non-Medical Issues Psychosocial:Patient is originally from [facility]. He moved to [place] approximately 20 years ago. 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 Patient is but has 4 adult children from this marriage. (Abbey Donnelly, Nikko and Sergio). Apparently he also has a 14-year- old daughter from a different relationship; she lives in [place]. Spiritual: Protestant ariana Legal: Patient is not . He has 4 adult children (Andrzej, Abbey, Nikko and Sergio). Per [place] statutes, in the absence of written advanced directives healthcare proxy decision making would fall to the majority of these 4 children. Son, Andrzej, was present at bedside. He states his siblings would not want to participate in medical decision making; he was willing to provide names and numbers so each could be given the opportunity to opt out of healthcare proxy decision-making. Messages were left for the other 3 siblings ( Abbey, Nikko, Sergio), awaiting return phone calls. Ethical issues impacting care: No known ethical issues impacting care at this time . . Important Contacts Tea Calhoun, spouse/former spouse: [phone] Andrzej, son: [phone] Abbey, daughter [phone] Nikko, son, Sergio, son: [phone] . Prognosis Patient is a 51-year-old male with multiple comorbid conditions. He was admitted with suspected GI bleed, persistent ileus, liver cirrhosis/elevated LFTs, thrombocytopenia/coagulopathy and hepatic encephalopathy. Now being treated for pneumonia. He is not a candidate for liver transplant. He is at high risk for ongoing complications and decline. . Code Status: Full Code Plan * FULL CODE * Decision-making: Patient is not . He has 4 adult children (Andrzej, Abbey, Nikko and Sergio). Per [place] statutes, in the absence of written advanced directives healthcare proxy decision making would fall to the majority of these 4 children. Patient's son Nikko and daughter Kisha have deferred decision making to son Andrzej. Awaiting return call from Sergio to confirm his decision to participate or not. * Telephone conference with patient's son Andrzej today, update on patient's current clinical status. Discussed in length possible trajectories pending evolution of patient's clinical course. Andrzej again endorsed he knows his father would not want to spend the rest of his life in the hospital. Goals for the time being pending further diagnostics and clinical course. * Patient verbalized today to Dr. Boyd he would want to be a FULL CODE, Cris bedside RN present during this discussion. She reported the patient has periods of waxing and waning however during the discussion regarding code status the patient was lucid and appeared capable of making his own decisions. * Symptom management - encephalopathy: CT brain 07/01 revealed no acute intracranial findings. Hyperalbuminemia/liver cirrhosis/elevated LFTs. Patient on lactulose 30mL TID, rifaximin 550mg BID. No recommendations at this time. * Symptom management - dyspnea: Oxygen saturation in the mid to high 90s on 3L nasal cannula. Duonebs 1 ampule q 2hr PRN for shortness of breath. He is currently being treated for pneumonia.No recommendations. * Symptom management- pain: Multifactorial, secondary to ileus versus SBO, liver failure. Morphine 2mg q 3hr PRN for pain ordered, last dose 07/08/17 @ 0843 , tramadol 100mg q 4 hr PRN for pain, last dose 07/10/17 @ 0952, only one dose utilized in the past 24 hours. * Palliative care will continue to follow this patient throughout his hospitalization to establish trust, assist with symptom management and clarification of medical treatment goals. . Attestation To help prompt me to consider important information that might be impacting today's encounter and assessment, information from prior notes written by myself or my colleagues may have been "brought forward" into today's note. My signature on this note, however, is an attestation that I personally performed the exam, history, and/or decision-making noted today, and, unless otherwise indicated, the interactions with patient, family, and staff as well as the review of records all occurred today. I also attest that the listed assessment and stated plan reflect my best clinical judgment today based on the combination of historical information, prior notes, and today's exam/ interactions. When time spent is documented, it refers only to time spent today by the signer, or if indicated, combined time spent today by collaborating physician/nurse practitioner. Dinora Lock Jul 10, 2017 15:24
--- NOTE | 2017-07-10 16:19 | RADRPT ---
EXAM DATE/TIME: 07/10/2017 08:26 [facility] COMPARISON: No previous studies available for comparison. INDICATIONS : Obstruction. FLUORO TIME: 0 minutes IMAGE COUNT: 16 CONTRAST: Gastrojac IMAGING TIME(S): 15 min, 30 min, 45 min, 1 hr, 2 hr4.5 hr MEDICAL HISTORY : Carcinoma, esophageal. GI bleed SURGICAL HISTORY : None. ENCOUNTER: Subsequent ACUITY: 1 week PAIN SCORE: 5/10 LOCATION: Bilateral abdomen FINDINGS: Preliminary film is unremarkable. The stomach is grossly unremarkable. There is diffuse small bowel distention without a focal transiti on point. There is delayed small bowel transit time of approximately 5-6 hours. No significant focal mass or intraluminal filling defect is demonstrated. Fluoroscopy of the abdomen and terminal ileum we re deferred secondary to difficulty transporting the patient to the fluoroscopy suite. CONCLUSION: 1. Diffuse small bowel dilatation and delayed small bowel transit time of approximately 5-6 hours wit hout focal transition point, intraluminal filling defect or gross mass. Findings are most consistent with moderate adynamic ileus. Bryson Downing MD on July 10, 2017 at 16:14 Board Certified Radiologist. This report was verified electronically.
[2017-07-10 17:13] VITALS: BP 115/70; PULSE 80; RESP 20; TEMP 98; O2SAT 95
--- NOTE | 2017-07-10 17:40 | MB ---
cc: CEE DAVIES MD DATE OF CONSULTATION 07/10/17 REASON FOR CONSULTATION Acute kidney injury with increased BUN and creatinine. HISTORY OF PRESENT ILLNESS This is a 51-year-old male with a past medical history of cirrhosis of the liver, bronchial asthma, depression, hyperlipidemia, pancreatitis, Menendez's esophagus, chronic abdominal pain, possible history of gastric ulcer and varices, questionable esophageal cancer who was admitted with abdominal pain and distension. I was called to see the patient because of elevated BUN and creatinine. The patient has a creatinine of 1.0 on admission which improved to 0.7 to 0.8 most of the time and it just started increasing for the last two days and now is 2.3. The patient has abdominal distension and pain and seen by GI and had a GI workup including a CT scan. Endoscopy and colonoscopy was done in December of last year. The patient has been quite lethargic and confused and not able to give the history. Most of the history was taken from the patient's chart, according to which he has been on clear liquid diet and getting small bowel x-rays. Recently given some active, so he is quite lethargic, just opens eyes, unable to tell his name and then goes back to sleep. He has a condom catheter and has been passing urine and also has loose bowel motion and has a rectal tube. There is no history of nausea or vomiting, not eating well because he is just on clear liquids at present. PAST MEDICAL HISTORY 1. Bronchial asthma, 2. Possible esophageal cancer, 3. Gastric ulcers and varices. 4. Depression, 5. Menendez's esophagus 6. Chronic liver disease. PAST SURGICAL HISTORY 1. Left eye surgery, 2. Sinus surgery 3. Endoscopy 4. History of previous laparotomy. REVIEW OF SYSTEMS Cannot be taken since the patient is not answering most of the questions. SOCIAL HISTORY The patient has a history of smoking about half-pack per day and also drinking two cocktails per day. FAMILY HISTORY Two sisters have breast cancer and brother has throat cancer. ALLERGIES NO KNOWN DRUG ALLERGIES. MEDICATIONS Currently on 1. Brittany-Colace 1 tablet b.i.d. 2. Protonix 40 mg b.i.d., 3. Mucinex 600 mg b.i.d. 4. Rifaxime 550 mg b.i.d. 5. Thiamine 100 mg daily 6. Nicotine patch 7. MiraLax 17 grams once a day. 8. Librium 15 mg one dose. 9. Insulin sliding scale. 10. Reglan 10 mg q. 8-hour. 12. Augmentin 500 mg q. 8-hour. 13. Clonidine 0.82 mg q. 8-hour 14. Lactulose 30 mL t.i.d. 15. Clonidine p.r.n. 16. Tylenol. 17. Zofran p.r.n. 18. Ultram p.r.n. PHYSICAL EXAMINATION GENERAL: The patient is sleepy and snoring, wakes up on command, just opens eyes and able to tell his name and then goes back to sleep, not in distress. VITAL SIGNS: Blood pressure is 121/68, temperature 97.4, oxygen saturation is 95-97%. HEENT: Pupils are mid constricted. Sclerae are icteric and conjunctivae pale. NECK: Supple. JVD is not elevated. LUNGS: The patient has bilateral decreased air entry with occasional wheezing. HEART: S1, S2 regular rhythm. ABDOMEN: Distended, soft, lax. There is no definite tenderness. Bowel sounds positive. EXTREMITIES: There is mild edema in the legs. LABORATORY DATA WBC count is 4.7, hemoglobin 10.2, platelet count of 109, neutrophils 64.8%, eosinophils 3.4%, sodium 142, potassium 3.3, chloride 110, bicarb 22.4, BUN 18, creatinine 2.3, glucose 121, calcium is 8.1, creatinine kinase 23, total bilirubin was 5.5 with AST of 54 and ALT of 21, ammonia level was 66 on 07/05. Vancomycin level was 45 two days ago. Urinalysis showing hazy urine with 30 of protein. JOSE was negative. Anti-smooth muscle and anti-mitochondrial were also negative. Cultures all negative. IMAGING STUDIES The patient had abdominal x-ray done which shows dilated small bowel. Small bowel x-ray done shows diffuse small bowel dilatation and delayed small bowel time about 5-6 hours without focal transition point. ASSESSMENT AND PLAN 1. Acute kidney injury 2. Small-bowel obstruction. 3. Chronic liver disease. 4. GI bleeding 5. History of alcoholism. 6. Anemia The patient has elevated BUN and creatinine and has been nonoliguric, most likely has acute kidney injury because of the toxicity from vancomycin or ATN or possibility of prerenal azotemia. At present, he is on a liquid diet. He is getting IV fluids. I will check the urine sodium osmolality and eosinophils. Avoid any nephrotoxins, follow the urine output and the BUN and creatinine. I will also get ultrasound of the kidneys. Thank you for the consultation and I will follow the patient while he is in the hospital. MD GLORIA Prieto/ /4:36 PM /5:19 PM
--- NOTE | 2017-07-10 18:31 | HHI.GIFU ---
Subjective Remarks Resting in bed. Pt extremely lethargic, was difficult to arouse, but once aroused wakes up and follows commands. No n/v. Rectal tube with large amount of liquid stool per nurse (Yoli Koenig) Objective Vitals I&O Vital Signs Date Time Temp Pulse Resp B/P (MAP) Pulse Ox O2 Delivery O2 Flow Rate FiO2 07/10/17 17:13 98.0 80 20 115/70 (85) 95 07/10/17 12:55 97.4 84 20 121/68 (85) 95 07/10/17 08:59 97.3 82 20 119/61 (80) 97 07/10/17 06:02 97.8 77 18 117/65 (82) 97 07/10/17 00:59 97.2 70 20 106/58 (74) 94 07/09/17 20:17 97.4 78 20 116/66 (83) 97 07/09/17 19:43 94 Nasal Cannula 3.00 I/O 07/09/17 07/09/17 07/09/17 07/10/17 07/10/17 07/10/17 07:00 15:00 23:00 07:00 15:00 23:00 Intake Total 200 ml 1170 ml 960 ml 725 ml Output Total 800 ml 625 ml 1600 ml 2000 ml Balance -600 ml 1170 ml 335 ml -1600 ml -1275 ml Intake Oral 960 ml 725 ml IV Total 200 ml 1170 ml Output Urine Total 300 ml 625 ml 650 ml Stool Total 500 ml 950 ml 2000 ml Laboratory Laboratory Tests Test 07/10/17 07:05 Blood Urea Nitrogen 18 Creatinine 2.33 Random Glucose 121 Calcium Level 8.1 Sodium Level 142 Potassium Level 3.3 Chloride Level 110 Carbon Dioxide Level 22.4 Anion Gap 10 Estimat Glomerular Filtration Rate 30 Date/Time Source Procedure Growth Status 07/04/17 13:00 Blood Peripheral Aerobic Blood Culture - Final NO GROWTH IN 5 DAYS Complete 07/04/17 13:00 Blood Peripheral Anaerobic Blood Culture - Final NO GROWTH IN 5 DAYS Complete 07/04/17 10:00 Sputum Expectorated Sputum Gram Stain - Final Complete 07/04/17 10:00 Sputum Expectorated Sputum Sputum Culture - Final HEAVY GROWTH NORMAL RESPIRATORY BRENNAN Complete 07/09/17 12:38 Urine Catheterized Urine Urine Culture - Preliminary NO GROWTH IN 24 HOURS. Resulted Imaging Last Impressions Abdomen X-Ray 07/10/17 0600 Signed Impressions: Service Date/Time: Monday, July 10, 2017 06:31 - CONCLUSION: Dilated small bowel. Some degree of obstruction needs to be considered. Nikko Mason MD Small Bowel X-Ray 07/10/17 0000 Signed Impressions: Service Date/Time: Monday, July 10, 2017 08:26 - CONCLUSION: 1. Diffuse small bowel dilatation and delayed small bowel transit time of approximately 5- 6 hours without focal transition point, intraluminal filling defect or gross mass. Findings are most consistent with moderate adynamic ileus. Bryson Downing MD Chest X-Ray 07/09/17 0600 Signed Impressions: Service Date/Time: July 06:10 - CONCLUSION: 1. Minimal basilar dependent density. Differential diagnosis includes atelectasis. Findings similar to prior exam. Albert Walden MD Chest CT 07/05/17 1635 Signed Impressions: Service Date/Time: Wednesday, July 05, 2017 18:11 - CONCLUSION: 1. Segmental consolidation with volume loss medial right lower lung. 2. Atelectasis or basilar consolidation left lower lung. 3. Mild amount of ascites. Caesar Ann MD Abdomen MRI 07/02/17 0000 Signed Impressions: Service Date/Time: June 16:34 - CONCLUSION: 1. Hepatomegaly and hepatic steatosis. No focal mass identified. 2. Moderate splenomegaly. 3. Small amount of ascites. 4. Small bilateral pleural effusions. Wilbert Howe MD Ankle X-Ray 07/01/17 0000 Signed Impressions: Service Date/Time: Saturday, July 01, 2017 10:22 - CONCLUSION: Soft tissue mass noted to be fluid filled on ultrasound 09/10/2012. Colten Nelson MD FACR Head CT 06/30/17 0000 Signed Impressions: Service Date/Time: Saturday, July 01, 2017 02:24 - CONCLUSION: 1. No acute intracranial abnormalities. Previous fixation left maxillary sinus. Albert Walden MD Cervical Spine CT 06/30/17 0000 Signed Impressions: Service Date/Time: Saturday, July 01, 2017 02:24 - CONCLUSION: Normal examination for a patient of this age. Albert Walden MD Abdomen/Pelvis CT 06/29/17 0000 Signed Impressions: Service Date/Time: Thursday, June 29, 2017 12:52 - CONCLUSION: 1. Hepatosplenomegaly and varices noted as above. 2. Atherosclerosis. 3. Abnormal diffuse heterogeneous appearance of the liver which may be related to either marked hepatic steatosis in an inhomogeneous fashion versus steatosis and underlying diffuse liver masses. An MRI of the abdomen with and without contrast may be helpful for further evaluation of this finding. Navjot Chirinos MD Physical Exam HEENT: Normocephalic; atraumatic; + jaundice. CHEST: Resp. even/shallow, diminished CARDIAC: RRR ABDOMEN: Abdomen soft, distended, mild diffuse tenderness; bowel sounds are hypoactive. Rectal tube in place with large amount of liquid brown stool. EXTREMITIES: No clubbing, cyanosis, or edema. SKIN: + jaundice. ASSOCIATE PROFESSOR OF ECONOMICS: Lethargic, Confused. (Yoli Koenig) Assessment and Plan Plan ASSESSMENT: - Questionable upper GI bleeding. Pt presented to ER with nausea/vomiting with dark emesis and occasional red blood and intermittent dark stools. Not actively bleeding. Of note, does report that he has had nose bleeds x 2 days. However, he does have evidence of liver cirrhosis and varcies on CT imaging. EGD/Colonoscopy (12/24/15)---> There was a 5 cm segment of suspected Menendez's esophagus found in the distal esophagus, multiple biopsies were performed, there was erythematous gastritis in the entire examined stomach; multiple biopsies were performed, normal duodenal mucosa in the bulb and second portion of the duodenum, retroflexion was performed and was normal; the colon mucosa was otherwise normal, retroflexed views revealed no abnormalities. Pathology with gastric antral mucosal biopsies with histopathologic features consistent with chemical gastropathy, as may bee seen with bile reflux, non-steroidal anti-inflammatory drugs or other drug induced disease negative for intestinal metaplasia and dysplasia, farhat stain negative for helicobacter. GE mucosal biopsies with chronic inflammatory gastric changes consistent with reflux exhibiting extensive intestinal metaplasia, negative for dysplasia. 1. 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 Gastropathy and mild gastritis 3. Moderate duodenitis 4. No active bleeding and no sign of old bleeding 5. Retroflexed views revealed no abnormalities PPI. No active bleeding. HH 10.2/31.1. - Persistent ileus. CT scan abdomen and pelvis (06/29/17)----> Hepatosplenomegaly and varices noted as above. Atherosclerosis. Abnormal diffuse heterogeneous appearance of the liver which may be related to either marked hepatic steatosis in an inhomogeneous fashion versus steatosis and underlying diffuse liver masses. An MRI of the abdomen with and without contrast may be helpful for further evaluation of this finding. Pt states this pain began after a hernia repair in July of 2016 and is intermittent at times, but usually more constant. S/P Fleets enema. KUB (07/07/17)---> No significant change mild to moderate bowel distention. S/P SBFT (07/10/17)---> Diffuse small bowel dilatation and delayed small bowel transit time of approximately 5-6 hours without focal transition point, intraluminal filling defect or gross mass. Findings are most consistent with moderate adynamic ileus. Nurse reports that he put out 2,000cc of liquid stool today. S/P Relistor (07/09). Reglan, Miralax. and is also getting lactulose TID. Will hold the lactulose for 1-2 days - Liver cirrhosis/Elevated LFTs. Pt reports that he has been told that his liver was enlarged, but never told that he had liver cirrhosis. He continues to drink ETOH, stating [address] has findings of varcies, he has thrombocytopenia, coagulopathy, hypoalbuminemia, all of which support a dx of liver cirrhosis. MRI (07/02/17)---> hepatomegaly and hepatic steatosis, no focal mass identified. Moderate splenomegaly, small amount of of ascites. Small bilateral pleural effusion. Will check liver workup to r/o other underlying liver disease- JOSE negative, AMA <20.0, ASMA negative, AFP 4.6. ALpha 1 Antitrypsin 221, Ceruloplasmin 37, Ferritin 94, Iron saturation 14.0%. Hepatitis profile neg. This is likely related to ETOH. DF 6.0. MELD 13. - Menendez's Esophagus, GERD. Takes ranitidine as needed at home, has daily symptoms. EGD as above. PPI - Thrombocytopenia, Coagulopathy. Likely related to cirrhosis. - Anemia, macrocytic. HH stable, Folate 17.2, B12 1711. - Hepatic encephalopathy, Ammonia 66. Lactulose TID, Xifaxan. Still very lethargic, confused, but does arouse and follows commands once awake. - ETOH abuse. DT precautions per attending. - DON, worsening renal function. Creat 2.33 - Resp. Insufficiency/Asthma, per attending. - Depression, Hyperlipidemia. Per attending. PLAN: - Clear liquids - Hold lactulose for 1-2 days - Cont. Reglan - Cont. Miralax - Cont. Protonix - Cont. Xifaxan - Monitor labs - Send stool for cdiff - KUB in am - Supportive care - Further recommendations to follow based on results of above - PT seen and examined by Dr. Salgado and myself and this note is written on her behalf (Yoli Koenig) Yoli Koenig Jul 10, 2017 18:31 Priscila Salgado MD Jul 11, 2017 07:05
--- NOTE | 2017-07-10 19:31 | RADRPT ---
EXAM DATE/TIME: 07/10/2017 18:25 [facility] COMPARISON: No previous studies available for comparison. INDICATIONS : Increased BUN/Creatnine. MEDICAL HISTORY : Neck pain. Confusion. Tremors. Weakness. Asthma. Dyspnea. Wheezing. Barretts syndrome. Stomach ulcer. Joint pain. Depression. Anxiety. Nausea. Vomiting. SURGICAL HISTORY : Left eye surgery. Exploratory laporoscopy. Sinus surgery. ENCOUNTER: Initial ACUITY: 1 day PAIN SCORE: Nonresponsive. LOCATION: Bilateral flank MEASUREMENTS: RIGHT KIDNEY: 12.6 x 5.0 x 6.1 cm LEFT KIDNEY: 12.6 x 5.1 x 6.1 cm FINDINGS: RIGHT KIDNEY: Renal cortex is normal in thickness and echotexture. No hydronephrosis, stone, or mass. LEFT KIDNEY: Renal cortex is normal in thickness and echotexture. No hydronephrosis, stone, or mass. BLADDER: Within normal limits given the degree of distension. CONCLUSION: 1. Unremarkable renal ultrasound. Mild ascites. Albert Walden MD on July 10, 2017 at 19:28 Board Certified Radiologist. This report was verified electronically.
--- NOTE | 2017-07-10 19:42 | HHI.PR ---
Subjective Remarks No new issues .Remains on N/C 2 L. No active GI bleed. Abdomen is less distended. Taking a soft diet. Objective Vital Signs Date Time Temp Pulse Resp B/P (MAP) Pulse Ox O2 Delivery O2 Flow Rate FiO2 07/10/17 17:13 98.0 80 20 115/70 (85) 95 07/10/17 12:55 97.4 84 20 121/68 (85) 95 07/10/17 08:59 97.3 82 20 119/61 (80) 97 07/10/17 06:02 97.8 77 18 117/65 (82) 97 07/10/17 00:59 97.2 70 20 106/58 (74) 94 07/09/17 20:17 97.4 78 20 116/66 (83) 97 07/09/17 19:43 94 Nasal Cannula 3.00 I/O 07/09/17 07/09/17 07/09/17 07/10/17 07/10/17 07/10/17 07:00 15:00 23:00 07:00 15:00 23:00 Intake Total 200 ml 1170 ml 960 ml 725 ml Output Total 800 ml 625 ml 1600 ml 2000 ml Balance -600 ml 1170 ml 335 ml -1600 ml -1275 ml Intake Oral 960 ml 725 ml IV Total 200 ml 1170 ml Output Urine Total 300 ml 625 ml 650 ml Stool Total 500 ml 950 ml 2000 ml Result Diagram: 07/07/17 0537 07/10/17 0705 Objective Remarks The patient is a 51 year-old male, lying in bed, in no distress. HEENT: Atraumatic, normocephalic. Pupils equal, round and reactive to light and accommodation. Conjunctivae clear, Nonicteric sclerae. Oral mucosa moist Neck: Supple. No JVD, adenopathy, thyromegaly. Trachea midline. Cardiovascular: Regular rate and rhythm. Normal S1-S2. No murmurs, rubs or gallops noted. Pulmonary exam: No wheezing. No Crackles. Abdomen: Mild distension. No Mass. Positive bowel sounds. Extremities: No cyanosis, clubbing or edema. Neuro: No focal deficit Assessment and Plan Assessment and Plan IMPRESSION: 1. Altered mental status. 2. ETOH abuse. 3. Anemia, status post EGD. 4. Thrombocytopenia secondary to liver disease. 5. Elevated AST. 6. Elevated ammonia level. 7. History of GERD and Menendez's esophagus. 8. Aspiration Pneumonia Plan : 1. PO diet as tolerated 2. Continue antibiotics Augmentin . 3. D/C Nebs and add Ventolin HFA , 2puffs tid prn 4. IS at bedside q2h 5. Cont Rifaximin, Reglan. 6. PFT when stable. Miesha Horan MD Jul 10, 2017 19:42
[2017-07-10 20:31] VITALS: BP 114/62; PULSE 75; RESP 20; TEMP 97.8; O2SAT 97
--- NOTE | 2017-07-10 21:31 | RADRPT ---
EXAM DATE/TIME: 07/10/2017 20:43 [facility] COMPARISON: ABDOMEN KUB ONLY, July 10, 2017, 6:31. INDICATIONS : Concern for ileus. MEDICAL HISTORY : Carcinoma, esophageal. GI bleed SURGICAL HISTORY : None. ENCOUNTER: Initial ACUITY: 2 weeks PAIN SCORE: 0/10 LOCATION: Bilateral abdomen. FINDINGS: Supine view of the abdomen was performed. Gaseous distention of bowel is stable to slightly improved from earlier examination. No free air. Presumed rectal tube present. CONCLUSION: 1. Slight improvement in gaseous distention of bowel. Albert Walden MD on July 10, 2017 at 21:27 Board Certified Radiologist. This report was verified electronically.
[2017-07-11] VITALS (9 sets, daily range): BP systolic 100–132; BP diastolic 59–73; PULSE 68–79; RESP 16–20; TEMP 97.2–99; O2SAT 94–98
[2017-07-11] MEDS: INSULIN NovoLIN REGULAR SUPPLEMENTAL SCALE SQ SCH ×6 (02:00→22:00)
[2017-07-11 02:12] LABS: SODIUM,RANDOM URINE 21 MEQ/L
[2017-07-11 03:02] LABS: OSMOLALITY,URINE 295 MOSM/KG (300-1300)
[2017-07-11] MEDS: traMADol HCL 50 MG TAB PO PRN ×2 (05:02→09:40)
[2017-07-11] MEDS: RESP: ALBUTEROL 2.5 MG/IPRATROPIUM 0.5 MG NEB (PRN) NEB (05:48)
[2017-07-11] MEDS: METOCLOPRAMIDE HCL 10 MG/2 ML VIAL IV PUSH SCH ×3 (06:01→21:58)
[2017-07-11] MEDS: AMOXICILLIN/CLAVULANATE K 500 MG TAB PO SCH ×3 (06:01→21:54)
[2017-07-11] MEDS: cloNIDine HCL 0.2 MG TAB PO SCH ×4 (06:01→21:58)
[2017-07-11 07:01] LABS: BICARBONATE 21.9 MEQ/L (21.0-32.0); CALCIUM 7.8 MG/DL (8.5-10.1); CREATININE 2.46 MG/DL (0.60-1.30)
[2017-07-11] MEDS: RIFAXIMIN 550 MG TAB PO SCH ×2 (09:00→21:54)
[2017-07-11] MEDS: NICOTINE 14 MG/24 HR PATCH T-DERMAL SCH (09:37)
[2017-07-11] MEDS: DOCUSATE SODIUM 50 MG/SENNA 8.6 MG TAB PO SCH ×2 (09:37→21:54)
[2017-07-11] MEDS: REMOVE OLD PATCH T-DERMAL SCH (09:37)
[2017-07-11] MEDS: SODIUM CHLORIDE 0.9% FLUSH 10 ML FLUSH IV FLUSH SCH ×2 (09:38→21:59)
[2017-07-11] MEDS: POLYETHYLENE GLYCOL 17 GM PKG PO SCH (09:38)
[2017-07-11] MEDS: PANTOPRAZOLE SODIUM 40 MG VIAL IV SCH ×2 (09:38→21:57)
[2017-07-11] MEDS: guaiFENesin E.R. 600 MG TAB PO SCH ×2 (09:38→21:58)
[2017-07-11] MEDS: THIAMINE HCL 100 MG TAB PO SCH (09:38)
--- NOTE | 2017-07-11 11:01 | HHI.PR ---
Subjective Remarks in no acute distress. slightly better today. no fever. has on and off mild abdominal pain. Objective Vitals Vital Signs Date Time Temp Pulse Resp B/P (MAP) Pulse Ox O2 Delivery O2 Flow Rate FiO2 07/11/17 08:00 98.2 72 16 101/59 (73) 96 07/11/17 07:29 78 07/11/17 05:53 96 Nasal Cannula 2.00 07/11/17 05:08 99.0 68 20 100/61 (74) 96 07/11/17 01:42 97 Nasal Cannula 2.00 07/11/17 00:13 97.6 72 16 116/73 (87) 98 07/10/17 20:31 97.8 75 20 114/62 (79) 97 07/10/17 17:13 98.0 80 20 115/70 (85) 95 07/10/17 12:55 97.4 84 20 121/68 (85) 95 I/O 07/10/17 07/10/17 07/10/17 07/11/17 07/11/17 07/11/17 07:00 15:00 23:00 07:00 15:00 23:00 Intake Total 725 ml Output Total 1600 ml 2000 ml 1475 ml Balance -1600 ml -1275 ml -1475 ml Intake Oral 725 ml Output Urine Total 650 ml Stool Total 950 ml 2000 ml 1475 ml Result Diagram: 07/07/17 0537 07/11/17 0510 Imaging Last Impressions Abdomen X-Ray 07/10/17 0600 Signed Impressions: Service Date/Time: Monday, July 10, 2017 06:31 - CONCLUSION: Dilated small bowel. Some degree of obstruction needs to be considered. Nikko Mason MD Small Bowel X-Ray 07/10/17 0000 Signed Impressions: Service Date/Time: Monday, July 10, 2017 08:26 - CONCLUSION: 1. Diffuse small bowel dilatation and delayed small bowel transit time of approximately 5- 6 hours without focal transition point, intraluminal filling defect or gross mass. Findings are most consistent with moderate adynamic ileus. Bryson Downing MD Renal Ultrasound 07/10/17 0000 Signed Impressions: Service Date/Time: Monday, July 10, 2017 18:25 - CONCLUSION: 1. Unremarkable renal ultrasound. Mild ascites. Albert Walden MD Chest X-Ray 07/09/17 0600 Signed Impressions: Service Date/Time: July 06:10 - CONCLUSION: 1. Minimal basilar dependent density. Differential diagnosis includes atelectasis. Findings similar to prior exam. Albert Walden MD Chest CT 07/05/17 1635 Signed Impressions: Service Date/Time: Wednesday, July 05, 2017 18:11 - CONCLUSION: 1. Segmental consolidation with volume loss medial right lower lung. 2. Atelectasis or basilar consolidation left lower lung. 3. Mild amount of ascites. Caesar Ann MD Abdomen MRI 07/02/17 0000 Signed Impressions: Service Date/Time: June 16:34 - CONCLUSION: 1. Hepatomegaly and hepatic steatosis. No focal mass identified. 2. Moderate splenomegaly. 3. Small amount of ascites. 4. Small bilateral pleural effusions. Wilbert Howe MD Ankle X-Ray 07/01/17 0000 Signed Impressions: Service Date/Time: Saturday, July 01, 2017 10:22 - CONCLUSION: Soft tissue mass noted to be fluid filled on ultrasound 09/10/2012. Colten Nelson MD FACR Head CT 06/30/17 0000 Signed Impressions: Service Date/Time: Saturday, July 01, 2017 02:24 - CONCLUSION: 1. No acute intracranial abnormalities. Previous fixation left maxillary sinus. Albert Walden MD Cervical Spine CT 06/30/17 0000 Signed Impressions: Service Date/Time: Saturday, July 01, 2017 02:24 - CONCLUSION: Normal examination for a patient of this age. Albert Walden MD Abdomen/Pelvis CT 06/29/17 0000 Signed Impressions: Service Date/Time: Thursday, June 29, 2017 12:52 - CONCLUSION: 1. Hepatosplenomegaly and varices noted as above. 2. Atherosclerosis. 3. Abnormal diffuse heterogeneous appearance of the liver which may be related to either marked hepatic steatosis in an inhomogeneous fashion versus steatosis and underlying diffuse liver masses. An MRI of the abdomen with and without contrast may be helpful for further evaluation of this finding. Navjot Chirinos MD Objective Remarks GENERAL: looks better today. CARDIOVASCULAR: Regular rate and regular rhythm without murmurs, gallops, or rubs. RESPIRATORY: diffuse wheezing with occasional cough GASTROINTESTINAL: Abdomen soft, non-tender, distended. Normal, active bowel sounds MUSCULOSKELETAL: Extremities without clubbing, cyanosis, or edema. NEURO: awake and more alert today. Procedures 06/30/17 EGD Medications and IVs Current Medications Sodium Chloride (NS Flush) 2 ml UNSCH PRN IV FLUSH FLUSH AFTER USING IV ACCESS ; Start 06/29/17 at 11:00; Stop 06/29/17 at 15:56; Status DC Iohexol (Omnipaque 350 Inj) 92 ml STK-MED ONCE IVCONTRAST Last administered on 06/29/17 10:21; Start 06/29/17 at 10:21; Stop 06/29/17 at 13:05; Status DC Octreotide Acetate (SandoSTATIN INJ) 100 mcg ONCE ONCE IV PUSH Last administered on 06/29/17 14:31; Start 06/29/17 at 14:15; Stop 06/29/17 at 14:27 ; Status DC Pantoprazole Sodium (Protonix Inj) 80 mg ONCE ONCE IV PUSH Last administered on 06/29/17 14:31; Start 06/29/17 at 14:15; Stop 06/29/17 at 14:27; Status DC Clonidine (Catapres) 0.1 mg Q4H PRN PO SBP>160, DBP>90; Start 06/29/17 at 16:00 Sodium Chloride 1,000 ml @ 100 mls/hr Q10H IV Last administered on 06/30/17 12:00; Start 06/29/17 at 16:00; Stop 06/30/17 at 17:09; Status DC Sodium Chloride (NS Flush) 2 ml UNSCH PRN IV FLUSH FLUSH AFTER USING IV ACCESS ; Start 06/29/17 at 16:00 Sodium Chloride (NS Flush) 2 ml BID IV FLUSH Last administered on 07/11/17 09: 38; Start 06/29/17 at 21:00 Acetaminophen (Tylenol) 650 mg Q4H PRN PO TEMP > 100.4; Start 06/29/17 at 15:15 Ondansetron HCl (Zofran Inj) 4 mg Q6H PRN IVP NAUSEA OR VOMITING Last administered on 07/08/17 08:43; Start 06/29/17 at 15:15 Prochlorperazine (Compazine Supp) 25 mg Q12H PRN RECTAL NAUSEA OR VOMITING; Start 06/29/17 at 15:15 Acetaminophen (Tylenol) 650 mg Q6H PRN PO PAIN SCALE 1 TO 2 Last administered on 06/30/17 04:52; Start 06/29/17 at 15:15 Morphine Sulfate (Morphine Inj) 2 mg Q3H PRN IV PUSH Pain 3-5; if unable to take PO Last administered on 07/08/17 08:43; Start 06/29/17 at 16:00 Morphine Sulfate (Morphine Inj) 4 mg Q3H PRN IV PUSH Pain 6-10;if unable to take PO; Start 06/29/17 at 16:00 Tramadol HCl (Ultram) 50 mg Q4H PRN PO PAIN SCALE 3 TO 5 Last administered on 07/10/17 22:44; Start 06/29/17 at 16:00 Tramadol HCl (Ultram) 100 mg Q4H PRN PO PAIN SCALE 6 TO 10 Last administered on 07/11/17 09:40; Start 06/29/17 at 16:00 Naloxone HCl (Narcan Inj) 0.4 mg UNSCH PRN IV PUSH SEE LABEL COMMENTS; Start at 16:00 Senna/Docusate Sodium (Brittany-Colace) 1 tab BID PO Last administered on 09:37; Start 06/29/17 at 21:00 Magnesium Hydroxide (Milk Of Magnesia Liq) 30 ml Q12H PRN PO MILD - MODERATE CONSTIPATION; Start 06/29/17 at 15:15 Sennosides (Senokot) 17.2 mg Q12H PRN PO MODERATE - SEVERE CONSTIPATION; Start 06/29/17 at 15:15 Bisacodyl (Dulcolax Supp) 10 mg DAILY PRN RECTAL SEVERE CONSITIPATION; Start at 15:15 Lactulose (Lactulose Liq) 30 ml DAILY PRN PO SEVERE CONSITIPATION; Start at 15:15; Status Future Hold Flumazenil (Romazicon Inj) 0.2 mg Q1M PRN IV PUSH SEE LABEL COMMENTS; Start at 16:00; Stop 07/10/17 at 11:28; Status DC Lorazepam (Ativan) 1 mg Q4H PRN PO WA 8 - 10 Last administered on 06/30/17 09:32; Start 06/29/17 at 16:00; Stop 07/10/17 at 11:28; Status DC Lorazepam (Ativan Inj) 1 mg Q4H PRN IV PUSH CIWA 8 - 10 Last administered on 10:17; Start 06/29/17 at 16:00; Stop 07/10/17 at 11:28; Status DC Lorazepam (Ativan) 2 mg Q2H PRN PO CIWA 11-14; Start 06/29/17 at 16:00; Stop 07/10/17 at 11:28; Status DC Lorazepam (Ativan Inj) 2 mg Q2H PRN IV PUSH CIWA 11-14 Last administered on 19:33; Start 06/29/17 at 16:00; Stop 07/10/17 at 11:28; Status DC Lorazepam (Ativan Inj) 2 mg Q1H PRN IV PUSH CIWA 15-20; Start 06/29/17 at 16:00 ; Stop 07/10/17 at 11:28; Status DC Lorazepam (Ativan Inj) 2 mg Q15M PRN IV PUSH CIWA > 20 Last administered on 02:48; Start 06/29/17 at 16:00; Stop 07/10/17 at 11:28; Status DC Haloperidol Lactate (Haldol Inj) 2 mg Q15M PRN IM SEE LABEL COMMENTS Last administered on 07/06/17 01:12; Start 06/29/17 at 16:00; Stop 07/10/17 at 11:28 ; Status DC Sodium Chloride (NS Flush) 2 ml UNSCH PRN IV FLUSH FLUSH AFTER USING IV ACCESS ; Start 06/29/17 at 15:15; Status UNV Sodium Chloride (NS Flush) 2 ml BID IV FLUSH ; Start 06/29/17 at 21:00; Status UNV Folic Acid (Folate) 1 mg DAILY PO Last administered on 07/04/17 10:08; Start 06/29/17 at 16:00; Stop 07/04/17 at 15:59; Status DC Thiamine HCl (Vitamin B1) 100 mg DAILY PO Last administered on 07/11/17 09:38 ; Start 06/29/17 at 16:00; Status Future hold Multivitamins/ Minerals Therapeutic (Theragran M Tab) 1 tab DAILY PO Last administered on 07/04/17 10:08; Start 06/29/17 at 16:00; Stop 07/04/17 at 15:59 ; Status DC Clonidine (Catapres) 0.1 mg Q6H PRN PO SEE LABEL COMMENTS; Start 06/29/17 at 16 :00 Sodium Chloride (NS Flush) 2 ml UNSCH PRN IV FLUSH FLUSH AFTER USING IV ACCESS ; Start 06/29/17 at 15:15; Status UNV Sodium Chloride (NS Flush) 2 ml BID IV FLUSH ; Start 06/29/17 at 21:00; Status UNV Pantoprazole Sodium (Protonix Inj) 40 mg BID IV Last administered on 07/11/17 09:38; Start 06/29/17 at 21:00 Albuterol/ Ipratropium (Duoneb Neb) 1 ampule Q4HR NEB PRN NEB sob; Start at 15:30; Stop 07/01/17 at 07:05; Status DC Guaifenesin (Mucinex Er) 600 mg BID PO Last administered on 07/11/17 09:38; Start 06/29/17 at 21:00 Nicotine (Habitrol 14 Mg Patch.24 Hr) 1 patch ONCE ONCE T-DERMAL Last administered on 06/29/17 18:04; Start 06/29/17 at 16:00; Stop 06/29/17 at 16:01 ; Status DC Nicotine (Habitrol 14 Mg Patch.24 Hr) 1 patch DAILY T-DERMAL Last administered on 07/11/17 09:37; Start 06/30/17 at 09:00 Miscellaneous Information 1 DAILY T-DERMAL Last administered on 07/11/17 09:37 ; Start 06/30/17 at 09:00 Rifaximin (Xifaxan) 550 mg BID PO Last administered on 07/10/17 21:37; Start 06/30/17 at 11:45 Lactulose (Lactulose Liq) 30 ml BID PO Last administered on 07/06/17 09:02; Start 06/30/17 at 21:00; Stop 07/06/17 at 15:21; Status DC Miscellaneous Information ALL NURSING DEPARTME... UNSCH PRN .XX SEE LABEL COMMENTS; Start 06/30/17 at 12:56; Stop 07/01/17 at 12:55; Status DC Chlordiazepoxide (Librium) 50 mg Q6H PO Last administered on 07/04/17 10:08; Start 06/30/17 at 16:00; Stop 07/04/17 at 16:15; Status DC Dexmedetomidine HCl 200 mcg/ Sodium Chloride 50 ml @ 4.86 mls/hr TITRATE PRN IV Desired RASS; Start 06/30/17 at 16:00; Stop 06/30/17 at 16:25; Status DC Dexmedetomidine HCl 1000 mcg/ Sodium Chloride 250 ml @ 4.86 mls/hr TITRATE PRN IV Desired RASS Last administered on 07/01/17 09:03; Start 06/30/17 at 16: 30; Stop 07/03/17 at 09:48; Status DC Dextrose/Sodium Chloride 1,000 ml @ 84 mls/hr [id number] IV Last administered on 07/03/17 04:36; Start 06/30/17 at 17:15; Stop 07/03/17 at 09:48; Status DC Dextrose (D50w (Vial) Inj) 50 ml UNSCH PRN IV PUSH HYPOGLYCEMIA-SEE COMMENTS; Start 06/30/17 at 17:15 Glucagon (Glucagon Inj) 1 mg UNSCH PRN OTHER HYPOGLYCEMIA-SEE COMMENTS; Start 06/30/17 at 17:15 Insulin Human Regular (NovoLIN R SUPPLEMENTAL SCALE) 1 Q4H SQ ; Start 06/30/17 at 18:00 Albuterol/ Ipratropium (Duoneb Neb) 1 ampule Q2HR NEB PRN NEB sob Last administered on 07/03/17 23:32; Start 07/01/17 at 07:15; Stop 07/04/17 at 16:21 ; Status DC Thiamine HCl 100 mg/Sodium Chloride 101 ml @ 101 mls/hr DAILY IV Last administered on 07/03/17 09:12; Start 07/01/17 at 09:00; Stop 07/04/17 at 08:59 ; Status DC Albuterol/ Ipratropium (Duoneb Neb) 1 ampule Q6HR NEB NEB Last administered on 07/04/17 09:47; Start 07/01/17 at 10:00; Stop 07/04/17 at 14:52; Status DC Potassium Chloride (KCl) 80 meq ONCE ONCE PO Last administered on 07/01/17 09 :00; Start 07/01/17 at 07:15; Stop 07/01/17 at 07:37; Status DC Potassium Chloride 100 ml @ 50 mls/hr Q2H PRN IV For Potassium 2.8 - 3.2 mEq/L ; Start 07/01/17 at 09:30; Stop 07/08/17 at 08:16; Status DC Potassium Chloride 100 ml @ 50 mls/hr Q2H PRN IV For Potassium 2.8 - 3.2 mEq/ L Last administered on 07/08/17 06:53; Start 07/01/17 at 09:30; Stop 07/08/17 at 08:16; Status DC Potassium Bicarb/ Potassium Chloride (K-Lyte Cl Eff) 50 meq UNSCH PRN PO For Potassium 3.3 - 3.5 mEq/L Last administered on 07/01/17 17:53; Start 07/01/17 at 09:30 Potassium Chloride 100 ml @ 25 mls/hr UNSCH PRN IV For Potassium 3.3 - 3.5 mEq /L; Start 07/01/17 at 09:30; Stop 07/08/17 at 08:16; Status DC Potassium Chloride 100 ml @ 50 mls/hr Q2H PRN IV For Potassium 3.3 - 3.5 mEq/ L Last administered on 07/04/17 18:26; Start 07/01/17 at 09:30; Stop 07/08/17 at 08:16; Status DC Magnesium Sulfate 4 gm/Sodium Chloride 100 ml @ 50 mls/hr UNSCH PRN IV For Magnesium 0.9 - 1.1 mg/dL; Start 07/01/17 at 09:30; Stop 07/08/17 at 08:16; Status DC Magnesium Oxide (Mag-Ox) 800 mg UNSCH PRN PO For Magnesium 1.2 - 1.6 mg/dL; Start 07/01/17 at 09:30; Stop 07/08/17 at 08:16; Status DC Magnesium Sulfate 2 gm/Sodium Chloride 100 ml @ 50 mls/hr UNSCH PRN IV For Magnesium 1.2 - 1.6 mg/dL; Start 07/01/17 at 09:30; Stop 07/08/17 at 08:16; Status DC Potassium Phosphate (K-Phos) 2,000 mg Q4H PRN PO For Phosphorus < 2.5 mg/dL; Start 07/01/17 at 09:30; Stop 07/08/17 at 08:16; Status DC Sodium Phosphate 30 mmol/Sodium Chloride 250 ml @ 42 mls/hr UNSCH PRN IV For Phosphorus < 2.5 mg/dL; Start 07/01/17 at 09:30; Stop 07/08/17 at 08:16; Status DC Potassium Phosphate (K-Phos) 2,000 mg UNSCH PRN PO/TUBE SEE LABEL COMMENTS; Start 07/01/17 at 09:30; Stop 07/08/17 at 08:16; Status DC Potassium Phosphate 30 mmol/ Sodium Chloride 260 ml @ 42 mls/hr UNSCH PRN IV SEE LABEL COMMENTS; Start 07/01/17 at 09:30; Stop 07/08/17 at 08:16; Status DC Lidocaine HCl (Xylocaine-Mpf 1% Inj) 5 ml STK-MED ONCE OTHER ; Start 06/30/17 at 12:00; Stop 07/01/17 at 15:24; Status DC Propofol (Diprivan 200 Mg/20 ml Inj) 400 mg STK-MED ONCE IV ; Start 06/30/17 at 12:00; Stop 07/01/17 at 15:24; Status DC Metoclopramide HCl (Reglan Inj) 10 mg Q8HR IV PUSH Last administered on 06:01; Start 07/02/17 at 09:00 Polyethylene Glycol (Miralax) 17 gm DAILY PO Last administered on 07/11/17 09: 38; Start 07/02/17 at 09:00 Gadodiamide (Omniscan Pf Inj) 19 ml STK-MED ONCE IVCONTRAST Last administered on 07/02/17 17:13; Start 07/02/17 at 17:13; Stop 07/02/17 at 17:14; Status DC Sodium Biphosphate/ Sodium Phosphate (Fleets Enema (Adult)) 133 ml ONCE ONCE RECTAL Last administered on 07/03/17 17:23; Start 07/03/17 at 17:00; Stop at 17:01; Status DC Furosemide (Lasix Inj) 40 mg NOW ONCE IV PUSH Last administered on 07/03/17 19:20; Start 07/03/17 at 19:15; Stop 07/03/17 at 19:16; Status DC Dexmedetomidine HCl 200 mcg/ Sodium Chloride 52 ml @ 5 mls/hr TITRATE PRN IV SEDATION Last administered on 07/04/17 05:45; Start 07/03/17 at 22:00; Stop at 16:18; Status DC Acetylcysteine (Mucomyst 10% Neb) 2 ml Q6HR NEB NEB Last administered on 07:44; Start 07/04/17 at 04:00; Stop 07/05/17 at 14:10; Status DC Vancomycin HCl 1000 mg/Sodium Chloride 250 ml @ 250 mls/hr ONCE ONCE IV ; Start 07/04/17 at 08:30; Stop 07/04/17 at 09:29; Status UNV Pharmacy Profile Note 0 ml @ 0 mls/hr UNSCH OTHER ; Start 07/04/17 at 08:30; Stop 07/09/17 at 11:30; Status DC Piperacillin Sod/ Tazobactam Sod 50 ml @ 100 mls/hr Q8H IV Last administered on 07/09/17 09:36; Start 07/04/17 at 09:00; Stop 07/09/17 at 11:35; Status DC Sodium Chloride 1,000 ml @ 60 mls/hr [id number] IV Last administered on 10:06; Start 07/04/17 at 08:30; Stop 07/04/17 at 16:18; Status DC Vancomycin HCl 1700 mg/Sodium Chloride 517 ml @ 250 mls/hr Q12H IV Last administered on 07/05/17 23:08; Start 07/04/17 at 11:00; Stop 07/06/17 at 11:38 ; Status DC Miscellaneous Information SPECIFIC LAB TO BE DRAWN:VANCOMY... ONCE ONCE .XX ; Start 07/05/17 at 22:45; Stop 07/05/17 at 22:46; Status DC Metronidazole 100 ml @ 100 mls/hr Q8H IV Last administered on 07/09/17 07:15 ; Start 07/04/17 at 16:00; Stop 07/09/17 at 11:35; Status DC Albuterol/ Ipratropium (Duoneb Neb) 1 ampule Q6HR WHILE AWAKE NEB NEB Last administered on 07/04/17 15:21; Start 07/04/17 at 20:00; Stop 07/04/17 at 20:00 ; Status DC Furosemide (Lasix Inj) 40 mg ONCE ONCE IV PUSH Last administered on 07/04/17 15:36; Start 07/04/17 at 15:30; Stop 07/04/17 at 15:31; Status DC Furosemide (Lasix Inj) 40 mg STK-MED ONCE .ROUTE ; Start 07/04/17 at 15:19; Stop 07/04/17 at 15:20; Status DC Diltiazem HCl (Cardizem Inj) 10 mg ONCE ONCE IV Last administered on 16:07; Start 07/04/17 at 16:00; Stop 07/04/17 at 16:02; Status DC Diltiazem HCl (Cardizem Inj) 25 mg STK-MED ONCE .ROUTE ; Start 07/04/17 at 16:00 ; Stop 07/04/17 at 16:01; Status DC Chlordiazepoxide (Librium) 25 mg Q12H PO Last administered on 07/06/17 02:31; Start 07/05/17 at 04:00; Stop 07/06/17 at 10:08; Status DC Albuterol/ Ipratropium (Duoneb Neb) 1 ampule Q4HR NEB NEB ; Start 07/04/17 at 20:00; Stop 07/05/17 at 06:22; Status DC Albuterol/ Ipratropium (Duoneb Neb) 1 ampule Q2HR NEB PRN NEB SHORTNESS OF BREATH Last administered on 07/11/17 05:48; Start 07/04/17 at 16:15 Clonidine (Catapres) 0.2 mg Q8HR PO Last administered on 07/10/17 21:38; Start 07/04/17 at 22:00 Diltiazem HCl (Cardizem Inj) 10 mg ONCE ONCE IV Last administered on 16:22; Start 07/04/17 at 16:15; Stop 07/04/17 at 16:20; Status DC Albuterol/ Ipratropium (Duoneb Neb) 1 ampule Q6HR WHILE AWAKE NEB NEB Last administered on 07/08/17 08:59; Start 07/04/17 at 20:00; Stop 07/08/17 at 19:59 ; Status DC Bumetanide (Bumex Inj) 1 mg ONCE ONCE IV PUSH Last administered on 07/05/17 12:35; Start 07/05/17 at 11:30; Stop 07/05/17 at 11:31; Status DC Chlordiazepoxide (Librium) 25 mg DAILY PO Last administered on 07/07/17 08:21 ; Start 07/07/17 at 09:00; Stop 07/08/17 at 08:16; Status DC Vancomycin HCl 2000 mg/Sodium Chloride 520 ml @ 257.5 mls/ hr Q12H IV Last administered on 07/09/17 03:43; Start 07/06/17 at 13:00; Stop 07/09/17 at 11:30 ; Status DC Miscellaneous Information SPECIFIC LAB TO BE IGNACIO... ONCE ONCE .XX Last administered on 07/08/17 12:45; Start 07/08/17 at 12:45; Stop 07/08/17 at 12:46 ; Status DC Lactulose (Lactulose Liq) 30 ml TID PO Last administered on 07/10/17 18:21; Start 07/06/17 at 18:00; Status Future Hold Chlordiazepoxide (Librium) 20 mg DAILY PO Last administered on 07/10/17 09:48 ; Start 07/08/17 at 09:00; Stop 07/10/17 at 11:30; Status DC Miscellaneous Information SPECIFIC LAB TO BE DRAWN:VANCOMYCIN TROUGH DATE TO... ONCE ONCE .XX ; Start 07/09/17 at 12:45; Stop 07/09/17 at 12:46; Status Cancel Amoxicillin/ Clavulanate Potassium (Augmentin) 500 mg Q8HR PO Last administered on 07/11/17 06:01; Start 07/09/17 at 14:00 Albuterol/ Ipratropium (Duoneb Neb) 1 ampule Q4HR NEB NEB Last administered on 07/10/17 05:42; Start 07/09/17 at 12:00; Stop 07/10/17 at 12:08; Status DC Methylnaltrexone [place] (Relistor Inj) 12 mg ONCE ONCE SQ Last administered on 07/09/17 13:41; Start 07/09/17 at 12:45; Stop 07/09/17 at 12:52; Status DC Diatrizoate Meglum/ Diatrizoate Sod ( Gastroview Liq) 120 ml STK-MED ONCE PO Last administered on 07/10/17 09:30; Start 07/10/17 at 09:30; Stop 07/10/17 at 11:06; Status DC Diatrizoate Meglum/ Diatrizoate Sod ( Gastroview Liq) 120 ml STK-MED ONCE PO Last administered on 07/10/17 10:40; Start 07/10/17 at 10:40; Stop 07/10/17 at 11:14; Status DC Chlordiazepoxide (Librium) 15 mg ONCE ONCE PO Last administered on 07/11/17 09:37; Start 07/11/17 at 09:00; Stop 07/11/17 at 09:01; Status DC Lorazepam (Ativan) 0.5 mg Q6HR PRN PO ANXIETY; Start 07/10/17 at 12:00 Potassium Chloride (KCl) 20 meq ONCE ONCE PO Last administered on 07/10/17 14 :35; Start 07/10/17 at 13:00; Stop 07/10/17 at 13:01; Status DC A/P Problem List: (1) Esophageal varices ICD Code: I85.00 - Esophageal varices without bleeding (2) Gastrointestinal bleed ICD Code: K92.2 - Gastrointestinal hemorrhage, unspecified (3) GERD Status: Chronic (4) Alcohol use ICD Code: Z78.9 - Other specified health status Status: Acute (5) Tobacco abuse ICD Code: Z72.0 - Tobacco use Status: Chronic (6) Jaundice ICD Code: R17 - Unspecified jaundice (7) Gastritis ICD Code: K29.70 - Gastritis, unspecified, without bleeding Status: Acute (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 Patient with history of right zygomatic/maxillary sinus surgery 2015 CT C-spine 07/01 negative findings Tramadol 50-100 mg every 4 hours as needed pain Atherosclerotic vascular disease Dyslipidemia Hypertension Monitor HR and BP On Clonidine 0.2mg Q8 for BP control Possible Aspiration pneumonia Tobaccoism History of asthma/reactive airway disease Continue with oxygen keep sat> 92% continue neb treatments. switched to po Augmentin Pulm is following-/ Aung acute kidney injury non-oliguric- will monitor the renal function closely; repeat BMP in am. renal sonogram with no acute abnormality. nephrology evaluation appreciated. History esophageal cancer? Menendez's esophagus Gastroesophageal reflux disease Gout Gastritis/duodenitis Splenomegaly ileus on liquid diet EGD 06/30 by GI revealed mild gastritis, duodenitis. Likely esophagitis/Menendez' s not biopsied. Pantoprazole 40 mg IV daily for GI prophylaxis continue Lactulose and Xifaxan . CT abdomen/pelvis revealed splenomegaly 19.3 cm. varices at the esophageal hiatus, gastric ligament and left upper quadrant. Renal splenic shunt appreciated. MRI abdomen showed Hepatomegaly and hepatic steatosis. No focal mass identified. Moderate splenomegaly. Small amount of ascites.Small bilateral pleural effusions. Liver workup including JOSE, ASMA, Hep profile all negative Elevated TSH 6.7. History of gout Sliding-scale insulin Novulin R every 4 hrs for maintain euglycemia hypokalemia replaced. Macrocytic anemia Thrombocytopenia chronic likely secondary to underlying EtOH /cirrhotic liver disease-(improving) Monitor CBC/coags No signs of hemolysis/consumption thrombocytopenia. This appears to be a chronic condition Right ankle pain X-ray right ankle rule out fracture-Soft tissue mass noted to be fluid filled on ultrasound 09/10/2012. No acute fracture PT evaluate and treat Prophylaxis - GI - pantoprazole - DVT - SCD/holding pharmacological prophylaxis in light of thrombocytopenia palliative care evaluation appreciated. previously d/w the patient regarding the code status and he wants to stay on full-code status. Tyson Boyd MD Jul 11, 2017 11:01
--- NOTE | 2017-07-11 12:45 | HHI.NPPN ---
Subjective History of Present Illness 51-year-old male with a past medical history of cirrhosis of the liver, bronchial asthma, depression, hyperlipidemia, pancreatitis, Menendez's esophagus, chronic abdominal pain, possible history of gastric ulcer and varices, questionable esophageal cancer who was admitted with abdominal pain and distension. I was called to see the patient because of elevated BUN and creatinine. Additional Remarks Patient is alert, not eating well, no SOB, has mild abd. distension. Review of Systems General Constitutional: Fatigue Respiratory Lungs: Wheeze Cardiovascular Cardiac: CORTES Gastrointestinal Gastrointestinal: Abdominal Pain Objective Data Data 07/11/17 07/12/17 19:00 07:00 Output Total 1475 ml Balance -1475 ml Stool Total 1475 ml Vital Signs Date Time Temp Pulse Resp B/P (MAP) Pulse Ox O2 Delivery O2 Flow Rate FiO2 07/11/17 08:00 98.2 72 16 101/59 (73) 96 07/11/17 07:29 78 07/11/17 05:53 96 Nasal Cannula 2.00 07/11/17 05:08 99.0 68 20 100/61 (74) 96 07/11/17 01:42 97 Nasal Cannula 2.00 07/11/17 00:13 97.6 72 16 116/73 (87) 98 07/10/17 20:31 97.8 75 20 114/62 (79) 97 07/10/17 17:13 98.0 80 20 115/70 (85) 95 07/10/17 12:55 97.4 84 20 121/68 (85) 95 -: 07/07/17 0537 07/11/17 0510 Physical Exam General Appearance: No Acute Distress, Anxious Throat Throat Exam: Oral Mucosa [place] & Moist Neck Neck Exam: Neck Supple Pulmonary Resp Exam: Breath Sounds Equal, Rhonchi, Decreased Bases Cardiology CV Exam: Regular, Normal Sinus Rhythm Gastrointestinal/Abdomen GI Exam: Soft, Non-Tender, Distended Extremeties Extremities Exam: Trace Edema Neurologic Neuro Exam: Alert, Awake, Oriented Assessment/Plan Assessment Summary: DON/Acute Renal Failure Problem List: (1) Acute kidney injury ICD Codes: N17.9 - Acute kidney failure, unspecified (2) Encephalopathy ICD Codes: G93.40 - Encephalopathy, unspecified (3) Anemia ICD Codes: D64.9 - Anemia, unspecified Status: Acute (4) Jaundice ICD Codes: R17 - Unspecified jaundice (5) Gastritis ICD Codes: K29.70 - Gastritis, unspecified, without bleeding Status: Acute (6) 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 Normal size kidneys and has Normal Na. in the urine. Urine Eosinophils is negative. Most likely has ATN causing DON. Has elevated Bilirubin. BP is stable, Creatinine increase to 2.4, non oliguric. Follow the urine out put and BMP. Avoid Nephrotoxins. Linette Guerra MD Jul 11, 2017 12:45
[2017-07-12] VITALS (8 sets, daily range): BP systolic 98–118; BP diastolic 57–76; PULSE 69–77; RESP 20; TEMP 97.3–98.5; O2SAT 95–98
[2017-07-12] MEDS: INSULIN NovoLIN REGULAR SUPPLEMENTAL SCALE SQ SCH ×6 (02:00→21:27)
[2017-07-12] MEDS: cloNIDine HCL 0.2 MG TAB PO SCH ×3 (06:00→21:25)
[2017-07-12] MEDS: AMOXICILLIN/CLAVULANATE K 500 MG TAB PO SCH ×3 (07:24→21:26)
[2017-07-12] MEDS: METOCLOPRAMIDE HCL 10 MG/2 ML VIAL IV PUSH SCH ×3 (07:24→21:26)
--- NOTE | 2017-07-12 08:57 | HHI.PR ---
Subjective Remarks looks slightly better today. has some lower abdominal pain. no fever. brother at the bedside. Objective Vitals Vital Signs Date Time Temp Pulse Resp B/P (MAP) Pulse Ox O2 Delivery O2 Flow Rate FiO2 07/12/17 04:00 98.5 20 109/62 (78) 95 07/12/17 00:00 97.3 72 20 98/57 (71) 95 07/11/17 20:00 97.2 79 20 114/64 (81) 95 07/11/17 19:31 72 07/11/17 16:00 97.9 76 16 100/62 (75) 94 07/11/17 12:00 97.8 78 16 132/73 (92) 07/11/17 09:20 Nasal Cannula 2.00 I/O 07/11/17 07/11/17 07/11/17 07/12/17 07/12/17 07/12/17 07:00 15:00 23:00 07:00 15:00 23:00 Intake Total 960 ml Output Total 1825 ml 190 ml 350 ml Balance -865 ml -190 ml -350 ml Intake Oral 960 ml Output Urine Total 150 ml 190 ml 350 ml Stool Total 1675 ml # Voids 1 Result Diagram: 07/11/17 0510 Imaging Last Impressions Abdomen X-Ray 07/10/17599 Signed Impressions: Service Date/Time: Monday, July 10, 2017 06:31 - CONCLUSION: Dilated small bowel. Some degree of obstruction needs to be considered. Nikko Mason MD Small Bowel X-Ray 07/10/17 Signed Impressions: Service Date/Time: Monday, July 10, 2017 08:26 - CONCLUSION: 1. Diffuse small bowel dilatation and delayed small bowel transit time of approximately 5- 6 hours without focal transition point, intraluminal filling defect or gross mass. Findings are most consistent with moderate adynamic ileus. Bryson Downing MD Renal Ultrasound 07/10/17 Signed Impressions: Service Date/Time: Monday, July 10, 2017 18:25 - CONCLUSION: 1. Unremarkable renal ultrasound. Mild ascites. Albert Walden MD Chest X-Ray 07/09/17 0600 Signed Impressions: Service Date/Time: July 06:10 - CONCLUSION: 1. Minimal basilar dependent density. Differential diagnosis includes atelectasis. Findings similar to prior exam. Albert Walden MD Chest CT 07/05/17 1635 Signed Impressions: Service Date/Time: Wednesday, July 05, 2017 18:11 - CONCLUSION: 1. Segmental consolidation with volume loss medial right lower lung. 2. Atelectasis or basilar consolidation left lower lung. 3. Mild amount of ascites. Caesar Ann MD Abdomen MRI 07/02/17 0000 Signed Impressions: Service Date/Time: June 16:34 - CONCLUSION: 1. Hepatomegaly and hepatic steatosis. No focal mass identified. 2. Moderate splenomegaly. 3. Small amount of ascites. 4. Small bilateral pleural effusions. Wilbert Howe MD Ankle X-Ray 07/01/17 0000 Signed Impressions: Service Date/Time: Saturday, July 01, 2017 10:22 - CONCLUSION: Soft tissue mass noted to be fluid filled on ultrasound 09/10/2012. Colten Nelson MD FACR Head CT 06/30/17 0000 Signed Impressions: Service Date/Time: Saturday, July 01, 2017 02:24 - CONCLUSION: 1. No acute intracranial abnormalities. Previous fixation left maxillary sinus. Albert Walden MD Cervical Spine CT 06/30/17 0000 Signed Impressions: Service Date/Time: Saturday, July 01, 2017 02:24 - CONCLUSION: Normal examination for a patient of this age. Albert Walden MD Abdomen/Pelvis CT 06/29/17 0000 Signed Impressions: Service Date/Time: Thursday, June 29, 2017 12:52 - CONCLUSION: 1. Hepatosplenomegaly and varices noted as above. 2. Atherosclerosis. 3. Abnormal diffuse heterogeneous appearance of the liver which may be related to either marked hepatic steatosis in an inhomogeneous fashion versus steatosis and underlying diffuse liver masses. An MRI of the abdomen with and without contrast may be helpful for further evaluation of this finding. Navjot Chirinos MD Objective Remarks GENERAL: looks better today. CARDIOVASCULAR: Regular rate and regular rhythm without murmurs, gallops, or rubs. RESPIRATORY: diffuse wheezing with occasional cough GASTROINTESTINAL: Abdomen soft, non-tender, distended. Normal, active bowel sounds MUSCULOSKELETAL: Extremities without clubbing, cyanosis, or edema. NEURO: awake and more alert today. Procedures 06/30/17 EGD Medications and IVs Current Medications Sodium Chloride (NS Flush) 2 ml UNSCH PRN IV FLUSH FLUSH AFTER USING IV ACCESS ; Start 06/29/17 at 11:00; Stop 06/29/17 at 15:56; Status DC Iohexol (Omnipaque 350 Inj) 92 ml STK-MED ONCE IVCONTRAST Last administered on 06/29/17 10:21; Start 06/29/17 at 10:21; Stop 06/29/17 at 13:05; Status DC Octreotide Acetate (SandoSTATIN INJ) 100 mcg ONCE ONCE IV PUSH Last administered on 06/29/17 14:31; Start 06/29/17 at 14:15; Stop 06/29/17 at 14:27 ; Status DC Pantoprazole Sodium (Protonix Inj) 80 mg ONCE ONCE IV PUSH Last administered on 06/29/17 14:31; Start 06/29/17 at 14:15; Stop 06/29/17 at 14:27; Status DC Clonidine (Catapres) 0.1 mg Q4H PRN PO SBP>160, DBP>90; Start 06/29/17 at 16:00 Sodium Chloride 1,000 ml @ 100 mls/hr Q10H IV Last administered on 06/30/17 12:00; Start 06/29/17 at 16:00; Stop 06/30/17 at 17:09; Status DC Sodium Chloride (NS Flush) 2 ml UNSCH PRN IV FLUSH FLUSH AFTER USING IV ACCESS ; Start 06/29/17 at 16:00 Sodium Chloride (NS Flush) 2 ml BID IV FLUSH Last administered on 07/11/17 21: 59; Start 06/29/17 at 21:00 Acetaminophen (Tylenol) 650 mg Q4H PRN PO TEMP > 100.4; Start 06/29/17 at 15:15 Ondansetron HCl (Zofran Inj) 4 mg Q6H PRN IVP NAUSEA OR VOMITING Last administered on 07/08/17 08:43; Start 06/29/17 at 15:15 Prochlorperazine (Compazine Supp) 25 mg Q12H PRN RECTAL NAUSEA OR VOMITING; Start 06/29/17 at 15:15 Acetaminophen (Tylenol) 650 mg Q6H PRN PO PAIN SCALE 1 TO 2 Last administered on 06/30/17 04:52; Start 06/29/17 at 15:15 Morphine Sulfate (Morphine Inj) 2 mg Q3H PRN IV PUSH Pain 3-5; if unable to take PO Last administered on 07/08/17 08:43; Start 06/29/17 at 16:00 Morphine Sulfate (Morphine Inj) 4 mg Q3H PRN IV PUSH Pain 6-10;if unable to take PO; Start 06/29/17 at 16:00 Tramadol HCl (Ultram) 50 mg Q4H PRN PO PAIN SCALE 3 TO 5 Last administered on 07/10/17 22:44; Start 06/29/17 at 16:00 Tramadol HCl (Ultram) 100 mg Q4H PRN PO PAIN SCALE 6 TO 10 Last administered on 07/11/17 09:40; Start 06/29/17 at 16:00 Naloxone HCl (Narcan Inj) 0.4 mg UNSCH PRN IV PUSH SEE LABEL COMMENTS; Start at 16:00 Senna/Docusate Sodium (Brittany-Colace) 1 tab BID PO Last administered on 21:54; Start 06/29/17 at 21:00 Magnesium Hydroxide (Milk Of Magnesia Liq) 30 ml Q12H PRN PO MILD - MODERATE CONSTIPATION; Start 06/29/17 at 15:15 Sennosides (Senokot) 17.2 mg Q12H PRN PO MODERATE - SEVERE CONSTIPATION; Start 06/29/17 at 15:15 Bisacodyl (Dulcolax Supp) 10 mg DAILY PRN RECTAL SEVERE CONSITIPATION; Start at 15:15 Lactulose (Lactulose Liq) 30 ml DAILY PRN PO SEVERE CONSITIPATION; Start at 15:15; Status Future Hold Flumazenil (Romazicon Inj) 0.2 mg Q1M PRN IV PUSH SEE LABEL COMMENTS; Start at 16:00; Stop 07/10/17 at 11:28; Status DC Lorazepam (Ativan) 1 mg Q4H PRN PO CIWA 8 - 10 Last administered on 06/30/17 09:32; Start 06/29/17 at 16:00; Stop 07/10/17 at 11:28; Status DC Lorazepam (Ativan Inj) 1 mg Q4H PRN IV PUSH CIWA 8 - 10 Last administered on 10:17; Start 06/29/17 at 16:00; Stop 07/10/17 at 11:28; Status DC Lorazepam (Ativan) 2 mg Q2H PRN PO CIWA 11-14; Start 06/29/17 at 16:00; Stop 07/10/17 at 11:28; Status DC Lorazepam (Ativan Inj) 2 mg Q2H PRN IV PUSH CIWA 11-14 Last administered on 19:33; Start 06/29/17 at 16:00; Stop 07/10/17 at 11:28; Status DC Lorazepam (Ativan Inj) 2 mg Q1H PRN IV PUSH CIWA 15-20; Start 06/29/17 at 16:00 ; Stop 07/10/17 at 11:28; Status DC Lorazepam (Ativan Inj) 2 mg Q15M PRN IV PUSH CIWA > 20 Last administered on 02:48; Start 06/29/17 at 16:00; Stop 07/10/17 at 11:28; Status DC Haloperidol Lactate (Haldol Inj) 2 mg Q15M PRN IM SEE LABEL COMMENTS Last administered on 07/06/17 01:12; Start 06/29/17 at 16:00; Stop 07/10/17 at 11:28 ; Status DC Sodium Chloride (NS Flush) 2 ml UNSCH PRN IV FLUSH FLUSH AFTER USING IV ACCESS ; Start 06/29/17 at 15:15; Status UNV Sodium Chloride (NS Flush) 2 ml BID IV FLUSH ; Start 06/29/17 at 21:00; Status UNV Folic Acid (Folate) 1 mg DAILY PO Last administered on 07/04/17 10:08; Start 06/29/17 at 16:00; Stop 07/04/17 at 15:59; Status DC Thiamine HCl (Vitamin B1) 100 mg DAILY PO Last administered on 07/11/17 09:38 ; Start 06/29/17 at 16:00; Status Future hold Multivitamins/ Minerals Therapeutic (Theragran M Tab) 1 tab DAILY PO Last administered on 07/04/17 10:08; Start 06/29/17 at 16:00; Stop 07/04/17 at 15:59 ; Status DC Clonidine (Catapres) 0.1 mg Q6H PRN PO SEE LABEL COMMENTS; Start 06/29/17 at 16 :00 Sodium Chloride (NS Flush) 2 ml UNSCH PRN IV FLUSH FLUSH AFTER USING IV ACCESS ; Start 06/29/17 at 15:15; Status UNV Sodium Chloride (NS Flush) 2 ml BID IV FLUSH ; Start 06/29/17 at 21:00; Status UNV Pantoprazole Sodium (Protonix Inj) 40 mg BID IV Last administered on 07/11/17 21:57; Start 06/29/17 at 21:00 Albuterol/ Ipratropium (Duoneb Neb) 1 ampule Q4HR NEB PRN NEB sob; Start at 15:30; Stop 07/01/17 at 07:05; Status DC Guaifenesin (Mucinex Er) 600 mg BID PO Last administered on 07/11/17 21:58; Start 06/29/17 at 21:00 Nicotine (Habitrol 14 Mg Patch.24 Hr) 1 patch ONCE ONCE T-DERMAL Last administered on 06/29/17 18:04; Start 06/29/17 at 16:00; Stop 06/29/17 at 16:01 ; Status DC Nicotine (Habitrol 14 Mg Patch.24 Hr) 1 patch DAILY T-DERMAL Last administered on 07/11/17 09:37; Start 06/30/17 at 09:00 Miscellaneous Information 1 DAILY T-DERMAL Last administered on 07/11/17 09:37 ; Start 06/30/17 at 09:00 Rifaximin (Xifaxan) 550 mg BID PO Last administered on 07/11/17 21:54; Start 06/30/17 at 11:45 Lactulose (Lactulose Liq) 30 ml BID PO Last administered on 07/06/17 09:02; Start 06/30/17 at 21:00; Stop 07/06/17 at 15:21; Status DC Miscellaneous Information ALL NURSING DEPARTME... UNSCH PRN .XX SEE LABEL COMMENTS; Start 06/30/17 at 12:56; Stop 07/01/17 at 12:55; Status DC Chlordiazepoxide (Librium) 50 mg Q6H PO Last administered on 07/04/17 10:08; Start 06/30/17 at 16:00; Stop 07/04/17 at 16:15; Status DC Dexmedetomidine HCl 200 mcg/ Sodium Chloride 50 ml @ 4.86 mls/hr TITRATE PRN IV Desired RASS; Start 06/30/17 at 16:00; Stop 06/30/17 at 16:25; Status DC Dexmedetomidine HCl 1000 mcg/ Sodium Chloride 250 ml @ 4.86 mls/hr TITRATE PRN IV Desired RASS Last administered on 07/01/17 09:03; Start 06/30/17 at 16: 30; Stop 07/03/17 at 09:48; Status DC Dextrose/Sodium Chloride 1,000 ml @ 84 mls/hr [id number] IV Last administered on 07/03/17 04:36; Start 06/30/17 at 17:15; Stop 07/03/17 at 09:48; Status DC Dextrose (D50w (Vial) Inj) 50 ml UNSCH PRN IV PUSH HYPOGLYCEMIA-SEE COMMENTS; Start 06/30/17 at 17:15 Glucagon (Glucagon Inj) 1 mg UNSCH PRN OTHER HYPOGLYCEMIA-SEE COMMENTS; Start 06/30/17 at 17:15 Insulin Human Regular (NovoLIN R SUPPLEMENTAL SCALE) 1 Q4H SQ ; Start 06/30/17 at 18:00 Albuterol/ Ipratropium (Duoneb Neb) 1 ampule Q2HR NEB PRN NEB sob Last administered on 07/03/17 23:32; Start 07/01/17 at 07:15; Stop 07/04/17 at 16:21 ; Status DC Thiamine HCl 100 mg/Sodium Chloride 101 ml @ 101 mls/hr DAILY IV Last administered on 07/03/17 09:12; Start 07/01/17 at 09:00; Stop 07/04/17 at 08:59 ; Status DC Albuterol/ Ipratropium (Duoneb Neb) 1 ampule Q6HR NEB NEB Last administered on 07/04/17 09:47; Start 07/01/17 at 10:00; Stop 07/04/17 at 14:52; Status DC Potassium Chloride (KCl) 80 meq ONCE ONCE PO Last administered on 07/01/17 09 :00; Start 07/01/17 at 07:15; Stop 07/01/17 at 07:37; Status DC Potassium Chloride 100 ml @ 50 mls/hr Q2H PRN IV For Potassium 2.8 - 3.2 mEq/L ; Start 07/01/17 at 09:30; Stop 07/08/17 at 08:16; Status DC Potassium Chloride 100 ml @ 50 mls/hr Q2H PRN IV For Potassium 2.8 - 3.2 mEq/ L Last administered on 07/08/17 06:53; Start 07/01/17 at 09:30; Stop 07/08/17 at 08:16; Status DC Potassium Bicarb/ Potassium Chloride (K-Lyte Cl Eff) 50 meq UNSCH PRN PO For Potassium 3.3 - 3.5 mEq/L Last administered on 07/01/17 17:53; Start 07/01/17 at 09:30 Potassium Chloride 100 ml @ 25 mls/hr UNSCH PRN IV For Potassium 3.3 - 3.5 mEq /L; Start 07/01/17 at 09:30; Stop 07/08/17 at 08:16; Status DC Potassium Chloride 100 ml @ 50 mls/hr Q2H PRN IV For Potassium 3.3 - 3.5 mEq/ L Last administered on 07/04/17 18:26; Start 07/01/17 at 09:30; Stop 07/08/17 at 08:16; Status DC Magnesium Sulfate 4 gm/Sodium Chloride 100 ml @ 50 mls/hr UNSCH PRN IV For Magnesium 0.9 - 1.1 mg/dL; Start 07/01/17 at 09:30; Stop 07/08/17 at 08:16; Status DC Magnesium Oxide (Mag-Ox) 800 mg UNSCH PRN PO For Magnesium 1.2 - 1.6 mg/dL; Start 07/01/17 at 09:30; Stop 07/08/17 at 08:16; Status DC Magnesium Sulfate 2 gm/Sodium Chloride 100 ml @ 50 mls/hr UNSCH PRN IV For Magnesium 1.2 - 1.6 mg/dL; Start 07/01/17 at 09:30; Stop 07/08/17 at 08:16; Status DC Potassium Phosphate (K-Phos) 2,000 mg Q4H PRN PO For Phosphorus < 2.5 mg/dL; Start 07/01/17 at 09:30; Stop 07/08/17 at 08:16; Status DC Sodium Phosphate 30 mmol/Sodium Chloride 250 ml @ 42 mls/hr UNSCH PRN IV For Phosphorus < 2.5 mg/dL; Start 07/01/17 at 09:30; Stop 07/08/17 at 08:16; Status DC Potassium Phosphate (K-Phos) 2,000 mg UNSCH PRN PO/TUBE SEE LABEL COMMENTS; Start 07/01/17 at 09:30; Stop 07/08/17 at 08:16; Status DC Potassium Phosphate 30 mmol/ Sodium Chloride 260 ml @ 42 mls/hr UNSCH PRN IV SEE LABEL COMMENTS; Start 07/01/17 at 09:30; Stop 07/08/17 at 08:16; Status DC Lidocaine HCl (Xylocaine-Mpf 1% Inj) 5 ml STK-MED ONCE OTHER ; Start 06/30/17 at 12:00; Stop 07/01/17 at 15:24; Status DC Propofol (Diprivan 200 Mg/20 ml Inj) 400 mg STK-MED ONCE IV ; Start 06/30/17 at 12:00; Stop 07/01/17 at 15:24; Status DC Metoclopramide HCl (Reglan Inj) 10 mg Q8HR IV PUSH Last administered on 07:24; Start 07/02/17 at 09:00 Polyethylene Glycol (Miralax) 17 gm DAILY PO Last administered on 07/11/17 09: 38; Start 07/02/17 at 09:00 Gadodiamide (Omniscan Pf Inj) 19 ml STK-MED ONCE IVCONTRAST Last administered on 07/02/17 17:13; Start 07/02/17 at 17:13; Stop 07/02/17 at 17:14; Status DC Sodium Biphosphate/ Sodium Phosphate (Fleets Enema (Adult)) 133 ml ONCE ONCE RECTAL Last administered on 07/03/17 17:23; Start 07/03/17 at 17:00; Stop at 17:01; Status DC Furosemide (Lasix Inj) 40 mg NOW ONCE IV PUSH Last administered on 07/03/17 19:20; Start 07/03/17 at 19:15; Stop 07/03/17 at 19:16; Status DC Dexmedetomidine HCl 200 mcg/ Sodium Chloride 52 ml @ 5 mls/hr TITRATE PRN IV SEDATION Last administered on 07/04/17 05:45; Start 07/03/17 at 22:00; Stop at 16:18; Status DC Acetylcysteine (Mucomyst 10% Neb) 2 ml Q6HR NEB NEB Last administered on 07:44; Start 07/04/17 at 04:00; Stop 07/05/17 at 14:10; Status DC Vancomycin HCl 1000 mg/Sodium Chloride 250 ml @ 250 mls/hr ONCE ONCE IV ; Start 07/04/17 at 08:30; Stop 07/04/17 at 09:29; Status UNV Pharmacy Profile Note 0 ml @ 0 mls/hr UNSCH OTHER ; Start 07/04/17 at 08:30; Stop 07/09/17 at 11:30; Status DC Piperacillin Sod/ Tazobactam Sod 50 ml @ 100 mls/hr Q8H IV Last administered on 07/09/17 09:36; Start 07/04/17 at 09:00; Stop 07/09/17 at 11:35; Status DC Sodium Chloride 1,000 ml @ 60 mls/hr [id number] IV Last administered on 10:06; Start 07/04/17 at 08:30; Stop 07/04/17 at 16:18; Status DC Vancomycin HCl 1700 mg/Sodium Chloride 517 ml @ 250 mls/hr Q12H IV Last administered on 07/05/17 23:08; Start 07/04/17 at 11:00; Stop 07/06/17 at 11:38 ; Status DC Miscellaneous Information SPECIFIC LAB TO BE DRAWN:VANCOMY... ONCE ONCE .XX ; Start 07/05/17 at 22:45; Stop 07/05/17 at 22:46; Status DC Metronidazole 100 ml @ 100 mls/hr Q8H IV Last administered on 07/09/17 07:15 ; Start 07/04/17 at 16:00; Stop 07/09/17 at 11:35; Status DC Albuterol/ Ipratropium (Duoneb Neb) 1 ampule Q6HR WHILE AWAKE NEB NEB Last administered on 07/04/17 15:21; Start 07/04/17 at 20:00; Stop 07/04/17 at 20:00 ; Status DC Furosemide (Lasix Inj) 40 mg ONCE ONCE IV PUSH Last administered on 07/04/17 15:36; Start 07/04/17 at 15:30; Stop 07/04/17 at 15:31; Status DC Furosemide (Lasix Inj) 40 mg STK-MED ONCE .ROUTE ; Start 07/04/17 at 15:19; Stop 07/04/17 at 15:20; Status DC Diltiazem HCl (Cardizem Inj) 10 mg ONCE ONCE IV Last administered on 16:07; Start 07/04/17 at 16:00; Stop 07/04/17 at 16:02; Status DC Diltiazem HCl (Cardizem Inj) 25 mg STK-MED ONCE .ROUTE ; Start 07/04/17 at 16:00 ; Stop 07/04/17 at 16:01; Status DC Chlordiazepoxide (Librium) 25 mg Q12H PO Last administered on 07/06/17 02:31; Start 07/05/17 at 04:00; Stop 07/06/17 at 10:08; Status DC Albuterol/ Ipratropium (Duoneb Neb) 1 ampule Q4HR NEB NEB ; Start 07/04/17 at 20:00; Stop 07/05/17 at 06:22; Status DC Albuterol/ Ipratropium (Duoneb Neb) 1 ampule Q2HR NEB PRN NEB SHORTNESS OF BREATH Last administered on 07/11/17 05:48; Start 07/04/17 at 16:15 Clonidine (Catapres) 0.2 mg Q8HR PO Last administered on 07/11/17 21:58; Start 07/04/17 at 22:00 Diltiazem HCl (Cardizem Inj) 10 mg ONCE ONCE IV Last administered on 16:22; Start 07/04/17 at 16:15; Stop 07/04/17 at 16:20; Status DC Albuterol/ Ipratropium (Duoneb Neb) 1 ampule Q6HR WHILE AWAKE NEB NEB Last administered on 07/08/17 08:59; Start 07/04/17 at 20:00; Stop 07/08/17 at 19:59 ; Status DC Bumetanide (Bumex Inj) 1 mg ONCE ONCE IV PUSH Last administered on 07/05/17 12:35; Start 07/05/17 at 11:30; Stop 07/05/17 at 11:31; Status DC Chlordiazepoxide (Librium) 25 mg DAILY PO Last administered on 07/07/17 08:21 ; Start 07/07/17 at 09:00; Stop 07/08/17 at 08:16; Status DC Vancomycin HCl 2000 mg/Sodium Chloride 520 ml @ 257.5 mls/ hr Q12H IV Last administered on 07/09/17 03:43; Start 07/06/17 at 13:00; Stop 07/09/17 at 11:30 ; Status DC Miscellaneous Information SPECIFIC LAB TO BE IGNACIO... ONCE ONCE .XX Last administered on 07/08/17 12:45; Start 07/08/17 at 12:45; Stop 07/08/17 at 12:46 ; Status DC Lactulose (Lactulose Liq) 30 ml TID PO Last administered on 07/10/17 18:21; Start 07/06/17 at 18:00; Status Future Hold Chlordiazepoxide (Librium) 20 mg DAILY PO Last administered on 07/10/17 09:48 ; Start 07/08/17 at 09:00; Stop 07/10/17 at 11:30; Status DC Miscellaneous Information SPECIFIC LAB TO BE DRAWN:VANCOMYCIN TROUGH DATE TO... ONCE ONCE .XX ; Start 07/09/17 at 12:45; Stop 07/09/17 at 12:46; Status Cancel Amoxicillin/ Clavulanate Potassium (Augmentin) 500 mg Q8HR PO Last administered on 07/12/17 07:24; Start 07/09/17 at 14:00 Albuterol/ Ipratropium (Duoneb Neb) 1 ampule Q4HR NEB NEB Last administered on 07/10/17 05:42; Start 07/09/17 at 12:00; Stop 07/10/17 at 12:08; Status DC Methylnaltrexone [place] (Relistor Inj) 12 mg ONCE ONCE SQ Last administered on 07/09/17 13:41; Start 07/09/17 at 12:45; Stop 07/09/17 at 12:52; Status DC Diatrizoate Meglum/ Diatrizoate Sod ( Gastroview Liq) 120 ml STK-MED ONCE PO Last administered on 07/10/17 09:30; Start 07/10/17 at 09:30; Stop 07/10/17 at 11:06; Status DC Diatrizoate Meglum/ Diatrizoate Sod ( Gastrojac Liq) 120 ml STK-MED ONCE PO Last administered on 07/10/17 10:40; Start 07/10/17 at 10:40; Stop 07/10/17 at 11:14; Status DC Chlordiazepoxide (Librium) 15 mg ONCE ONCE PO Last administered on 07/11/17 09:37; Start 07/11/17 at 09:00; Stop 07/11/17 at 09:01; Status DC Lorazepam (Ativan) 0.5 mg Q6HR PRN PO ANXIETY; Start 07/10/17 at 12:00 Potassium Chloride (KCl) 20 meq ONCE ONCE PO Last administered on 07/10/17 14 :35; Start 07/10/17 at 13:00; Stop 07/10/17 at 13:01; Status DC A/P Problem List: (1) Esophageal varices ICD Code: I85.00 - Esophageal varices without bleeding (2) Gastrointestinal bleed ICD Code: K92.2 - Gastrointestinal hemorrhage, unspecified (3) GERD Status: Chronic (4) Alcohol use ICD Code: Z78.9 - Other specified health status Status: Acute (5) Tobacco abuse ICD Code: Z72.0 - Tobacco use Status: Chronic (6) Jaundice ICD Code: R17 - Unspecified jaundice (7) Gastritis ICD Code: K29.70 - Gastritis, unspecified, without bleeding Status: Acute (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 Patient with history of right zygomatic/maxillary sinus surgery 2015 CT C-spine 07/01 negative findings Tramadol 50-100 mg every 4 hours as needed pain Atherosclerotic vascular disease Dyslipidemia Hypertension Monitor HR and BP On Clonidine 0.2mg Q8 for BP control Possible Aspiration pneumonia Tobaccoism History of asthma/reactive airway disease Continue with oxygen keep sat> 92% continue neb treatments. switched to po Augmentin Pulmonary is following-Dr. Horan acute kidney injury non-oliguric- will monitor the renal function closely;BMP today pending. renal sonogram with no acute abnormality. nephrology evaluation appreciated. History esophageal cancer? Menendez's esophagus Gastroesophageal reflux disease Gout Gastritis/duodenitis Splenomegaly ileus on liquid diet EGD 06/30 by GI revealed mild gastritis, duodenitis. Likely esophagitis/Menendez' s not biopsied. Pantoprazole 40 mg IV daily for GI prophylaxis continue Lactulose and Xifaxan . CT abdomen/pelvis revealed splenomegaly 19.3 cm. varices at the esophageal hiatus, gastric ligament and left upper quadrant. Renal splenic shunt appreciated. MRI abdomen showed Hepatomegaly and hepatic steatosis. No focal mass identified. Moderate splenomegaly. Small amount of ascites.Small bilateral pleural effusions. Liver workup including JOSE, ASMA, Hep profile all negative GI following. Elevated TSH 6.7. History of gout Sliding-scale insulin Novulin R every 4 hrs for maintain euglycemia hypokalemia replaced. Macrocytic anemia Thrombocytopenia chronic likely secondary to underlying EtOH /cirrhotic liver disease-(improving) Monitor CBC/coags No signs of hemolysis/consumption thrombocytopenia. This appears to be a chronic condition Right ankle pain X-ray right ankle rule out fracture-Soft tissue mass noted to be fluid filled on ultrasound 09/10/2012. No acute fracture PT evaluate and treat Prophylaxis - GI - pantoprazole - DVT - SCD/holding pharmacological prophylaxis in light of thrombocytopenia palliative care evaluation appreciated. previously d/w the patient regarding the code status and he wants to stay on full-code status. d/w the brother at the bedside. Tyson Byod MD Jul 12, 2017 08:57
[2017-07-12] MEDS: DOCUSATE SODIUM 50 MG/SENNA 8.6 MG TAB PO SCH ×2 (09:01→21:26)
[2017-07-12] MEDS: traMADol HCL 50 MG TAB PO PRN ×2 (09:01→17:44)
[2017-07-12] MEDS: RIFAXIMIN 550 MG TAB PO SCH ×2 (09:01→21:26)
[2017-07-12] MEDS: PANTOPRAZOLE SODIUM 40 MG VIAL IV SCH ×2 (09:01→21:26)
[2017-07-12] MEDS: THIAMINE HCL 100 MG TAB PO SCH (09:01)
[2017-07-12] MEDS: guaiFENesin E.R. 600 MG TAB PO SCH ×2 (09:01→21:26)
[2017-07-12] MEDS: SODIUM CHLORIDE 0.9% FLUSH 10 ML FLUSH IV FLUSH SCH ×2 (09:02→21:00)
[2017-07-12] MEDS: NICOTINE 14 MG/24 HR PATCH T-DERMAL SCH (09:02)
[2017-07-12] MEDS: POLYETHYLENE GLYCOL 17 GM PKG PO SCH (09:02)
[2017-07-12] MEDS: REMOVE OLD PATCH T-DERMAL SCH (09:02)
[2017-07-12 09:07] LABS: BICARBONATE 21.7 MEQ/L (21.0-32.0); CALCIUM 7.9 MG/DL (8.5-10.1); CREATININE 2.59 MG/DL (0.60-1.30)
[2017-07-12] MEDS: RESP: ALBUTEROL 2.5 MG/IPRATROPIUM 0.5 MG NEB (PRN) NEB (09:49)
--- NOTE | 2017-07-12 11:25 | HHI.NPPN ---
Subjective History of Present Illness 51-year-old male with a past medical history of cirrhosis of the liver, bronchial asthma, depression, hyperlipidemia, pancreatitis, Menendez's esophagus, chronic abdominal pain, possible history of gastric ulcer and varices, questionable esophageal cancer who was admitted with abdominal pain and distension. I was called to see the patient because of elevated BUN and creatinine. Additional Remarks Patient is alert, feeling better, taking liquids, and no abd. pain, no SOB. Review of Systems General Constitutional: Fatigue Respiratory Lungs: Wheeze Cardiovascular Cardiac: CORTES Gastrointestinal Gastrointestinal: Abdominal Pain Objective Data Data Vital Signs Date Time Temp Pulse Resp B/P (MAP) Pulse Ox O2 Delivery O2 Flow Rate FiO2 07/12/17 09:50 95 Nasal Cannula 2.00 07/12/17 04:00 98.5 20 109/62 (78) 95 07/12/17 00:00 97.3 72 20 98/57 (71) 95 07/11/17 20:00 97.2 79 20 114/64 (81) 95 07/11/17 19:31 72 07/11/17 16:00 97.9 76 16 100/62 (75) 94 07/11/17 12:00 97.8 78 16 132/73 (92) -: 07/12/17 0703 Physical Exam General Appearance: No Acute Distress, Anxious Throat Throat Exam: Oral Mucosa [place] & Moist Neck Neck Exam: Neck Supple Pulmonary Resp Exam: Breath Sounds Equal, Rhonchi, Decreased Bases Cardiology CV Exam: Regular, Normal Sinus Rhythm Gastrointestinal/Abdomen GI Exam: Soft, Non-Tender, Distended Extremeties Extremities Exam: Trace Edema Neurologic Neuro Exam: Alert, Awake, Oriented Assessment/Plan Assessment Summary: DON/Acute Renal Failure Problem List: (1) Acute kidney injury ICD Codes: N17.9 - Acute kidney failure, unspecified (2) Encephalopathy ICD Codes: G93.40 - Encephalopathy, unspecified (3) Anemia ICD Codes: D64.9 - Anemia, unspecified Status: Acute (4) Jaundice ICD Codes: R17 - Unspecified jaundice (5) Gastritis ICD Codes: K29.70 - Gastritis, unspecified, without bleeding Status: Acute (6) 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 Normal size kidneys and has Normal Na. in the urine. Urine Eosinophils is negative. Most likely has ATN causing DON. Has elevated Bilirubin. BP is stable, Creatinine increase slightly to 2.5, non oliguric. Avoid Nephrotoxins. Encourage oral intake. Follow the urine out put and BMP. Linette Guerra MD Jul 12, 2017 11:25
--- NOTE | 2017-07-12 14:38 | HHI.GIFU ---
Subjective Remarks Patient sleeping, awakes to calling his name but lethargic. Still with some lower abd pain, loose stools in rectal tube, tolerating clears okay (Mayela Quezada GIOVANNA) Objective Vitals I&O Vital Signs Date Time Temp Pulse Resp B/P (MAP) Pulse Ox O2 Delivery O2 Flow Rate FiO2 07/12/17 12:00 97.3 77 20 115/66 (82) 98 07/12/17 09:50 95 Nasal Cannula 2.00 07/12/17 08:00 98.4 77 20 118/76 (90) 96 07/12/17 04:00 98.5 20 109/62 (78) 95 07/12/17 00:00 97.3 72 20 98/57 (71) 95 07/11/17 20:00 97.2 79 20 114/64 (81) 95 07/11/17 19:31 72 07/11/17 16:00 97.9 76 16 100/62 (75) 94 I/O 07/11/17 07/11/17 07/11/17 07/12/17 07/12/17 07/12/17 07:00 15:00 23:00 07:00 15:00 23:00 Intake Total 960 ml Output Total 1825 ml 190 ml 350 ml Balance -865 ml -190 ml -350 ml Intake Oral 960 ml Output Urine Total 150 ml 190 ml 350 ml Stool Total 1675 ml # Voids 1 Laboratory Laboratory Tests Test 07/12/17 07:03 Blood Urea Nitrogen 22 Creatinine 2.59 Random Glucose 99 Calcium Level 7.9 Sodium Level 136 Potassium Level 3.7 Chloride Level 105 Carbon Dioxide Level 21.7 Anion Gap 9 Estimat Glomerular Filtration Rate 26 Date/Time Source Procedure Growth Status 07/04/17 13:00 Blood Peripheral Aerobic Blood Culture - Final NO GROWTH IN 5 DAYS Complete 07/04/17 13:00 Blood Peripheral Anaerobic Blood Culture - Final NO GROWTH IN 5 DAYS Complete 07/04/17 10:00 Sputum Expectorated Sputum Gram Stain - Final Complete 07/04/17 10:00 Sputum Expectorated Sputum Sputum Culture - Final HEAVY GROWTH NORMAL RESPIRATORY BRENNAN Complete 07/09/17 12:38 Urine Catheterized Urine Urine Culture - Final NO GROWTH IN 48 HOURS. Complete Imaging Last Impressions Abdomen X-Ray 07/10/17 0600 Signed Impressions: Service Date/Time: Monday, July 10, 2017 06:31 - CONCLUSION: Dilated small bowel. Some degree of obstruction needs to be considered. Nikko Mason MD Small Bowel X-Ray 07/10/17 0000 Signed Impressions: Service Date/Time: Monday, July 10, 2017 08:26 - CONCLUSION: 1. Diffuse small bowel dilatation and delayed small bowel transit time of approximately 5- 6 hours without focal transition point, intraluminal filling defect or gross mass. Findings are most consistent with moderate adynamic ileus. Bryson Downing MD Renal Ultrasound 07/10/17 0000 Signed Impressions: Service Date/Time: Monday, July 10, 2017 18:25 - CONCLUSION: 1. Unremarkable renal ultrasound. Mild ascites. Albert Walden MD Chest X-Ray 07/09/17 0600 Signed Impressions: Service Date/Time: July 06:10 - CONCLUSION: 1. Minimal basilar dependent density. Differential diagnosis includes atelectasis. Findings similar to prior exam. Albert Walden MD Chest CT 07/05/17 1635 Signed Impressions: Service Date/Time: Wednesday, July 05, 2017 18:11 - CONCLUSION: 1. Segmental consolidation with volume loss medial right lower lung. 2. Atelectasis or basilar consolidation left lower lung. 3. Mild amount of ascites. Caesar Ann MD Abdomen MRI 07/02/17 0000 Signed Impressions: Service Date/Time: June 16:34 - CONCLUSION: 1. Hepatomegaly and hepatic steatosis. No focal mass identified. 2. Moderate splenomegaly. 3. Small amount of ascites. 4. Small bilateral pleural effusions. Wilbert Howe MD Ankle X-Ray 07/01/17 0000 Signed Impressions: Service Date/Time: Saturday, July 01, 2017 10:22 - CONCLUSION: Soft tissue mass noted to be fluid filled on ultrasound 09/10/2012. Colten Nelson MD FACR Head CT 06/30/17 0000 Signed Impressions: Service Date/Time: Saturday, July 01, 2017 02:24 - CONCLUSION: 1. No acute intracranial abnormalities. Previous fixation left maxillary sinus. Albert Walden MD Cervical Spine CT 06/30/17 0000 Signed Impressions: Service Date/Time: Saturday, July 01, 2017 02:24 - CONCLUSION: Normal examination for a patient of this age. Albert Walden MD Abdomen/Pelvis CT 06/29/17 0000 Signed Impressions: Service Date/Time: Thursday, June 29, 2017 12:52 - CONCLUSION: 1. Hepatosplenomegaly and varices noted as above. 2. Atherosclerosis. 3. Abnormal diffuse heterogeneous appearance of the liver which may be related to either marked hepatic steatosis in an inhomogeneous fashion versus steatosis and underlying diffuse liver masses. An MRI of the abdomen with and without contrast may be helpful for further evaluation of this finding. Navjot Chirinos MD Physical Exam HEENT: Normocephalic; atraumatic; + jaundice. CHEST: Resp. even/shallow, diminished CARDIAC: RRR ABDOMEN: Abdomen soft, distended, mild diffuse tenderness; bowel sounds are hypoactive. Rectal tube in place with large amount of liquid brown stool. EXTREMITIES: No clubbing, cyanosis, or edema. SKIN: + jaundice. [employer]: Lethargic, Confused. (Mayela Quezada) Assessment and Plan Plan ASSESSMENT: - Questionable upper GI bleeding. Pt presented to ER with nausea/vomiting with dark emesis and occasional red blood and intermittent dark stools. Not actively bleeding. Of note, does report that he has had nose bleeds x 2 days. However, he does have evidence of liver cirrhosis and varcies on CT imaging. EGD/Colonoscopy (12/24/15)---> There was a 5 cm segment of suspected Menendez's esophagus found in the distal esophagus, multiple biopsies were performed, there was erythematous gastritis in the entire examined stomach; multiple biopsies were performed, normal duodenal mucosa in the bulb and second portion of the duodenum, retroflexion was performed and was normal; the colon mucosa was otherwise normal, retroflexed views revealed no abnormalities. Pathology with gastric antral mucosal biopsies with histopathologic features consistent with chemical gastropathy, as may bee seen with bile reflux, non-steroidal anti-inflammatory drugs or other drug induced disease negative for intestinal metaplasia and dysplasia, farhat stain negative for helicobacter. GE mucosal biopsies with chronic inflammatory gastric changes consistent with reflux exhibiting extensive intestinal metaplasia, negative for dysplasia. 1. 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 Gastropathy and mild gastritis 3. Moderate duodenitis 4. No active bleeding and no sign of old bleeding 5. Retroflexed views revealed no abnormalities PPI. No active bleeding. HH 10.2/31.1. - Persistent ileus. CT scan abdomen and pelvis (06/29/17)----> Hepatosplenomegaly and varices noted as above. Atherosclerosis. Abnormal diffuse heterogeneous appearance of the liver which may be related to either marked hepatic steatosis in an inhomogeneous fashion versus steatosis and underlying diffuse liver masses. An MRI of the abdomen with and without contrast may be helpful for further evaluation of this finding. Pt states this pain began after a hernia repair in July of 2016 and is intermittent at times, but usually more constant. S/P Fleets enema. KUB (07/07/17)---> No significant change mild to moderate bowel distention. S/P SBFT (07/10/17)---> Diffuse small bowel dilatation and delayed small bowel transit time of approximately 5-6 hours without focal transition point, intraluminal filling defect or gross mass. Findings are most consistent with moderate adynamic ileus. Nurse reports that he put out 2,000cc of liquid stool today. S/P Relistor (07/09). Reglan, Miralax. and is also getting lactulose TID. Will hold the lactulose for 1-2 days - Liver cirrhosis/Elevated LFTs. Pt reports that he has been told that his liver was enlarged, but never told that he had liver cirrhosis. He continues to drink ETOH, stating [address] has findings of varcies, he has thrombocytopenia, coagulopathy, hypoalbuminemia, all of which support a dx of liver cirrhosis. MRI (07/02/17)---> hepatomegaly and hepatic steatosis, no focal mass identified. Moderate splenomegaly, small amount of of ascites. Small bilateral pleural effusion. Will check liver workup to r/o other underlying liver disease- JOSE negative, AMA <20.0, ASMA negative, AFP 4.6. ALpha 1 Antitrypsin 221, Ceruloplasmin 37, Ferritin 94, Iron saturation 14.0%. Hepatitis profile neg. This is likely related to ETOH. DF 6.0. MELD 13. - Diarrhea- Negative for C-diff - Menendez's Esophagus, GERD. Takes ranitidine as needed at home, has daily symptoms. EGD as above. PPI - Thrombocytopenia, Coagulopathy. Likely related to cirrhosis. - Anemia, macrocytic. HH stable, Folate 17.2, B12 1711. - Hepatic encephalopathy, Ammonia 66. Lactulose TID, Xifaxan. Still very lethargic, confused, but does arouse and follows commands once awake. - ETOH abuse. DT precautions per attending. - DON, worsening renal function. Creat 2.33 - Resp. Insufficiency/Asthma, per attending. - Depression, Hyperlipidemia. Per attending. PLAN: - will advance diet to heart healthy - Consider EGD next week - Hold lactulose for few days - Cont. Reglan - Cont. Miralax - Cont. Protonix - Cont. Xifaxan - Monitor labs - Supportive care - Further recommendations to follow based on results of above - PT seen and examined by Dr. Salgado and myself and this note is written on her behalf (Mayela Quezada) Mayela Quezada Jul 12, 2017 14:38 Priscila Salgado MD Jul 12, 2017 19:37
[2017-07-13] VITALS (10 sets, daily range): BP systolic 101–123; BP diastolic 56–65; PULSE 64–74; RESP 16–20; TEMP 97.3–98.5; O2SAT 94–99
[2017-07-13] MEDS: INSULIN NovoLIN REGULAR SUPPLEMENTAL SCALE SQ SCH ×6 (01:36→21:09)
[2017-07-13] MEDS: AMOXICILLIN/CLAVULANATE K 500 MG TAB PO SCH ×3 (05:31→21:07)
[2017-07-13] MEDS: METOCLOPRAMIDE HCL 10 MG/2 ML VIAL IV PUSH SCH ×3 (05:33→21:09)
[2017-07-13] MEDS: cloNIDine HCL 0.2 MG TAB PO SCH ×3 (05:33→21:08)
[2017-07-13] MEDS: REMOVE OLD PATCH T-DERMAL SCH (09:00)
--- NOTE | 2017-07-13 09:11 | HHI.PR ---
Subjective Remarks in no acute distress. has some lower abdominal pain. no fever. no nausea. Objective Vitals Vital Signs Date Time Temp Pulse Resp B/P (MAP) Pulse Ox O2 Delivery O2 Flow Rate FiO2 07/13/17 08:43 97.7 64 16 111/56 (74) 98 07/13/17 08:27 95 21 07/13/17 04:00 97.8 71 20 123/65 (84) 98 07/13/17 00:00 98.4 70 20 115/64 (81) 96 07/12/17 21:23 97.8 69 110/60 (77) 98 07/12/17 16:00 97.4 76 20 118/70 (86) 98 07/12/17 12:00 97.3 77 20 115/66 (82) 98 07/12/17 10:50 75 07/12/17 10:20 Nasal Cannula 2.00 07/12/17 09:50 95 Nasal Cannula 2.00 I/O 07/12/17 07/12/17 07/12/17 07/13/17 07/13/17 07/13/17 07:00 15:00 23:00 07:00 15:00 23:00 Intake Total 940 ml Output Total 350 ml 525 ml 450 ml Balance -350 ml 415 ml -450 ml Intake Oral 940 ml Output Urine Total 350 ml 525 ml 450 ml Result Diagram: 07/12/17 0703 Imaging Last Impressions Abdomen X-Ray 07/10/17 06 Signed Impressions: Service Date/Time: Monday, July 10, 2017 06:31 - CONCLUSION: Dilated small bowel. Some degree of obstruction needs to be considered. Nikko Mason MD Small Bowel X-Ray 07/10/17 Signed Impressions: Service Date/Time: Monday, July 10, 2017 08:26 - CONCLUSION: 1. Diffuse small bowel dilatation and delayed small bowel transit time of approximately 5- 6 hours without focal transition point, intraluminal filling defect or gross mass. Findings are most consistent with moderate adynamic ileus. Bryson Downing MD Renal Ultrasound 07/10/17 Signed Impressions: Service Date/Time: Monday, July 10, 2017 18:25 - CONCLUSION: 1. Unremarkable renal ultrasound. Mild ascites. Albert Walden MD Chest X-Ray 07/09/17 0600 Signed Impressions: Service Date/Time: July 06:10 - CONCLUSION: 1. Minimal basilar dependent density. Differential diagnosis includes atelectasis. Findings similar to prior exam. Albert Walden MD Chest CT 07/05/17 1635 Signed Impressions: Service Date/Time: Wednesday, July 05, 2017 18:11 - CONCLUSION: 1. Segmental consolidation with volume loss medial right lower lung. 2. Atelectasis or basilar consolidation left lower lung. 3. Mild amount of ascites. Caesar Ann MD Abdomen MRI 07/02/17 0000 Signed Impressions: Service Date/Time: June 16:34 - CONCLUSION: 1. Hepatomegaly and hepatic steatosis. No focal mass identified. 2. Moderate splenomegaly. 3. Small amount of ascites. 4. Small bilateral pleural effusions. Wilbert Howe MD Ankle X-Ray 07/01/17 0000 Signed Impressions: Service Date/Time: Saturday, July 01, 2017 10:22 - CONCLUSION: Soft tissue mass noted to be fluid filled on ultrasound 09/10/2012. Colten Nelson MD FACR Head CT 06/30/17 0000 Signed Impressions: Service Date/Time: Saturday, July 01, 2017 02:24 - CONCLUSION: 1. No acute intracranial abnormalities. Previous fixation left maxillary sinus. Albert Walden MD Cervical Spine CT 06/30/17 0000 Signed Impressions: Service Date/Time: Saturday, July 01, 2017 02:24 - CONCLUSION: Normal examination for a patient of this age. Albert Walden MD Abdomen/Pelvis CT 06/29/17 0000 Signed Impressions: Service Date/Time: Thursday, June 29, 2017 12:52 - CONCLUSION: 1. Hepatosplenomegaly and varices noted as above. 2. Atherosclerosis. 3. Abnormal diffuse heterogeneous appearance of the liver which may be related to either marked hepatic steatosis in an inhomogeneous fashion versus steatosis and underlying diffuse liver masses. An MRI of the abdomen with and without contrast may be helpful for further evaluation of this finding. Navjot Chirinos MD Objective Remarks GENERAL: looks better today. CARDIOVASCULAR: Regular rate and regular rhythm without murmurs, gallops, or rubs. RESPIRATORY: diffuse wheezing with occasional cough GASTROINTESTINAL: Abdomen soft, non-tender, distended. Normal, active bowel sounds MUSCULOSKELETAL: Extremities without clubbing, cyanosis, or edema. NEURO: awake and more alert today. Procedures 06/30/17 EGD Medications and IVs Current Medications Sodium Chloride (NS Flush) 2 ml UNSCH PRN IV FLUSH FLUSH AFTER USING IV ACCESS ; Start 06/29/17 at 11:00; Stop 06/29/17 at 15:56; Status DC Iohexol (Omnipaque 350 Inj) 92 ml STK-MED ONCE IVCONTRAST Last administered on 06/29/17 10:21; Start 06/29/17 at 10:21; Stop 06/29/17 at 13:05; Status DC Octreotide Acetate (SandoSTATIN INJ) 100 mcg ONCE ONCE IV PUSH Last administered on 06/29/17 14:31; Start 06/29/17 at 14:15; Stop 06/29/17 at 14:27 ; Status DC Pantoprazole Sodium (Protonix Inj) 80 mg ONCE ONCE IV PUSH Last administered on 06/29/17 14:31; Start 06/29/17 at 14:15; Stop 06/29/17 at 14:27; Status DC Clonidine (Catapres) 0.1 mg Q4H PRN PO SBP>160, DBP>90; Start 06/29/17 at 16:00 Sodium Chloride 1,000 ml @ 100 mls/hr Q10H IV Last administered on 06/30/17 12:00; Start 06/29/17 at 16:00; Stop 06/30/17 at 17:09; Status DC Sodium Chloride (NS Flush) 2 ml UNSCH PRN IV FLUSH FLUSH AFTER USING IV ACCESS ; Start 06/29/17 at 16:00 Sodium Chloride (NS Flush) 2 ml BID IV FLUSH Last administered on 07/12/17 21: 00; Start 06/29/17 at 21:00 Acetaminophen (Tylenol) 650 mg Q4H PRN PO TEMP > 100.4; Start 06/29/17 at 15:15 Ondansetron HCl (Zofran Inj) 4 mg Q6H PRN IVP NAUSEA OR VOMITING Last administered on 07/08/17 08:43; Start 06/29/17 at 15:15 Prochlorperazine (Compazine Supp) 25 mg Q12H PRN RECTAL NAUSEA OR VOMITING; Start 06/29/17 at 15:15 Acetaminophen (Tylenol) 650 mg Q6H PRN PO PAIN SCALE 1 TO 2 Last administered on 06/30/17 04:52; Start 06/29/17 at 15:15 Morphine Sulfate (Morphine Inj) 2 mg Q3H PRN IV PUSH Pain 3-5; if unable to take PO Last administered on 07/08/17 08:43; Start 06/29/17 at 16:00 Morphine Sulfate (Morphine Inj) 4 mg Q3H PRN IV PUSH Pain 6-10;if unable to take PO; Start 06/29/17 at 16:00 Tramadol HCl (Ultram) 50 mg Q4H PRN PO PAIN SCALE 3 TO 5 Last administered on 07/10/17 22:44; Start 06/29/17 at 16:00 Tramadol HCl (Ultram) 100 mg Q4H PRN PO PAIN SCALE 6 TO 10 Last administered on 07/12/17 17:44; Start 06/29/17 at 16:00 Naloxone HCl (Narcan Inj) 0.4 mg UNSCH PRN IV PUSH SEE LABEL COMMENTS; Start at 16:00 Senna/Docusate Sodium (Brittany-Colace) 1 tab BID PO Last administered on 21:26; Start 06/29/17 at 21:00 Magnesium Hydroxide (Milk Of Magnesia Liq) 30 ml Q12H PRN PO MILD - MODERATE CONSTIPATION; Start 06/29/17 at 15:15 Sennosides (Senokot) 17.2 mg Q12H PRN PO MODERATE - SEVERE CONSTIPATION; Start 06/29/17 at 15:15 Bisacodyl (Dulcolax Supp) 10 mg DAILY PRN RECTAL SEVERE CONSITIPATION; Start at 15:15 Lactulose (Lactulose Liq) 30 ml DAILY PRN PO SEVERE CONSITIPATION; Start at 15:15; Status Future Hold Flumazenil (Romazicon Inj) 0.2 mg Q1M PRN IV PUSH SEE LABEL COMMENTS; Start at 16:00; Stop 07/10/17 at 11:28; Status DC Lorazepam (Ativan) 1 mg Q4H PRN PO CIWA 8 - 10 Last administered on 06/30/17 09:32; Start 06/29/17 at 16:00; Stop 07/10/17 at 11:28; Status DC Lorazepam (Ativan Inj) 1 mg Q4H PRN IV PUSH CIWA 8 - 10 Last administered on 10:17; Start 06/29/17 at 16:00; Stop 07/10/17 at 11:28; Status DC Lorazepam (Ativan) 2 mg Q2H PRN PO CIWA 11-14; Start 06/29/17 at 16:00; Stop 07/10/17 at 11:28; Status DC Lorazepam (Ativan Inj) 2 mg Q2H PRN IV PUSH CIWA 11-14 Last administered on 19:33; Start 06/29/17 at 16:00; Stop 07/10/17 at 11:28; Status DC Lorazepam (Ativan Inj) 2 mg Q1H PRN IV PUSH CIWA 15-20; Start 06/29/17 at 16:00 ; Stop 07/10/17 at 11:28; Status DC Lorazepam (Ativan Inj) 2 mg Q15M PRN IV PUSH CIWA > 20 Last administered on 02:48; Start 06/29/17 at 16:00; Stop 07/10/17 at 11:28; Status DC Haloperidol Lactate (Haldol Inj) 2 mg Q15M PRN IM SEE LABEL COMMENTS Last administered on 07/06/17 01:12; Start 06/29/17 at 16:00; Stop 07/10/17 at 11:28 ; Status DC Sodium Chloride (NS Flush) 2 ml UNSCH PRN IV FLUSH FLUSH AFTER USING IV ACCESS ; Start 06/29/17 at 15:15; Status UNV Sodium Chloride (NS Flush) 2 ml BID IV FLUSH ; Start 06/29/17 at 21:00; Status UNV Folic Acid (Folate) 1 mg DAILY PO Last administered on 07/04/17 10:08; Start 06/29/17 at 16:00; Stop 07/04/17 at 15:59; Status DC Thiamine HCl (Vitamin B1) 100 mg DAILY PO Last administered on 07/12/17 09:01 ; Start 06/29/17 at 16:00; Status Future hold Multivitamins/ Minerals Therapeutic (Theragran M Tab) 1 tab DAILY PO Last administered on 07/04/17 10:08; Start 06/29/17 at 16:00; Stop 07/04/17 at 15:59 ; Status DC Clonidine (Catapres) 0.1 mg Q6H PRN PO SEE LABEL COMMENTS; Start 06/29/17 at 16 :00 Sodium Chloride (NS Flush) 2 ml UNSCH PRN IV FLUSH FLUSH AFTER USING IV ACCESS ; Start 06/29/17 at 15:15; Status UNV Sodium Chloride (NS Flush) 2 ml BID IV FLUSH ; Start 06/29/17 at 21:00; Status UNV Pantoprazole Sodium (Protonix Inj) 40 mg BID IV Last administered on 07/12/17 21:26; Start 06/29/17 at 21:00 Albuterol/ Ipratropium (Duoneb Neb) 1 ampule Q4HR NEB PRN NEB sob; Start at 15:30; Stop 07/01/17 at 07:05; Status DC Guaifenesin (Mucinex Er) 600 mg BID PO Last administered on 07/12/17 21:26; Start 06/29/17 at 21:00 Nicotine (Habitrol 14 Mg Patch.24 Hr) 1 patch ONCE ONCE T-DERMAL Last administered on 06/29/17 18:04; Start 06/29/17 at 16:00; Stop 06/29/17 at 16:01 ; Status DC Nicotine (Habitrol 14 Mg Patch.24 Hr) 1 patch DAILY T-DERMAL Last administered on 07/12/17 09:02; Start 06/30/17 at 09:00 Miscellaneous Information 1 DAILY T-DERMAL Last administered on 07/12/17 09:02 ; Start 06/30/17 at 09:00 Rifaximin (Xifaxan) 550 mg BID PO Last administered on 07/12/17 21:26; Start 06/30/17 at 11:45 Lactulose (Lactulose Liq) 30 ml BID PO Last administered on 07/06/17 09:02; Start 06/30/17 at 21:00; Stop 07/06/17 at 15:21; Status DC Miscellaneous Information ALL NURSING DEPARTME... UNSCH PRN .XX SEE LABEL COMMENTS; Start 06/30/17 at 12:56; Stop 07/01/17 at 12:55; Status DC Chlordiazepoxide (Librium) 50 mg Q6H PO Last administered on 07/04/17 10:08; Start 06/30/17 at 16:00; Stop 07/04/17 at 16:15; Status DC Dexmedetomidine HCl 200 mcg/ Sodium Chloride 50 ml @ 4.86 mls/hr TITRATE PRN IV Desired RASS; Start 06/30/17 at 16:00; Stop 06/30/17 at 16:25; Status DC Dexmedetomidine HCl 1000 mcg/ Sodium Chloride 250 ml @ 4.86 mls/hr TITRATE PRN IV Desired RASS Last administered on 07/01/17 09:03; Start 06/30/17 at 16: 30; Stop 07/03/17 at 09:48; Status DC Dextrose/Sodium Chloride 1,000 ml @ 84 mls/hr [id number] IV Last administered on 07/03/17 04:36; Start 06/30/17 at 17:15; Stop 07/03/17 at 09:48; Status DC Dextrose (D50w (Vial) Inj) 50 ml UNSCH PRN IV PUSH HYPOGLYCEMIA-SEE COMMENTS; Start 06/30/17 at 17:15 Glucagon (Glucagon Inj) 1 mg UNSCH PRN OTHER HYPOGLYCEMIA-SEE COMMENTS; Start 06/30/17 at 17:15 Insulin Human Regular (NovoLIN R SUPPLEMENTAL SCALE) 1 Q4H SQ ; Start 06/30/17 at 18:00 Albuterol/ Ipratropium (Duoneb Neb) 1 ampule Q2HR NEB PRN NEB sob Last administered on 07/03/17 23:32; Start 07/01/17 at 07:15; Stop 07/04/17 at 16:21 ; Status DC Thiamine HCl 100 mg/Sodium Chloride 101 ml @ 101 mls/hr DAILY IV Last administered on 07/03/17 09:12; Start 07/01/17 at 09:00; Stop 07/04/17 at 08:59 ; Status DC Albuterol/ Ipratropium (Duoneb Neb) 1 ampule Q6HR NEB NEB Last administered on 07/04/17 09:47; Start 07/01/17 at 10:00; Stop 07/04/17 at 14:52; Status DC Potassium Chloride (KCl) 80 meq ONCE ONCE PO Last administered on 07/01/17 09 :00; Start 07/01/17 at 07:15; Stop 07/01/17 at 07:37; Status DC Potassium Chloride 100 ml @ 50 mls/hr Q2H PRN IV For Potassium 2.8 - 3.2 mEq/L ; Start 07/01/17 at 09:30; Stop 07/08/17 at 08:16; Status DC Potassium Chloride 100 ml @ 50 mls/hr Q2H PRN IV For Potassium 2.8 - 3.2 mEq/ L Last administered on 07/08/17 06:53; Start 07/01/17 at 09:30; Stop 07/08/17 at 08:16; Status DC Potassium Bicarb/ Potassium Chloride (K-Lyte Cl Eff) 50 meq UNSCH PRN PO For Potassium 3.3 - 3.5 mEq/L Last administered on 07/01/17 17:53; Start 07/01/17 at 09:30 Potassium Chloride 100 ml @ 25 mls/hr UNSCH PRN IV For Potassium 3.3 - 3.5 mEq /L; Start 07/01/17 at 09:30; Stop 07/08/17 at 08:16; Status DC Potassium Chloride 100 ml @ 50 mls/hr Q2H PRN IV For Potassium 3.3 - 3.5 mEq/ L Last administered on 07/04/17 18:26; Start 07/01/17 at 09:30; Stop 07/08/17 at 08:16; Status DC Magnesium Sulfate 4 gm/Sodium Chloride 100 ml @ 50 mls/hr UNSCH PRN IV For Magnesium 0.9 - 1.1 mg/dL; Start 07/01/17 at 09:30; Stop 07/08/17 at 08:16; Status DC Magnesium Oxide (Mag-Ox) 800 mg UNSCH PRN PO For Magnesium 1.2 - 1.6 mg/dL; Start 07/01/17 at 09:30; Stop 07/08/17 at 08:16; Status DC Magnesium Sulfate 2 gm/Sodium Chloride 100 ml @ 50 mls/hr UNSCH PRN IV For Magnesium 1.2 - 1.6 mg/dL; Start 07/01/17 at 09:30; Stop 07/08/17 at 08:16; Status DC Potassium Phosphate (K-Phos) 2,000 mg Q4H PRN PO For Phosphorus < 2.5 mg/dL; Start 07/01/17 at 09:30; Stop 07/08/17 at 08:16; Status DC Sodium Phosphate 30 mmol/Sodium Chloride 250 ml @ 42 mls/hr UNSCH PRN IV For Phosphorus < 2.5 mg/dL; Start 07/01/17 at 09:30; Stop 07/08/17 at 08:16; Status DC Potassium Phosphate (K-Phos) 2,000 mg UNSCH PRN PO/TUBE SEE LABEL COMMENTS; Start 07/01/17 at 09:30; Stop 07/08/17 at 08:16; Status DC Potassium Phosphate 30 mmol/ Sodium Chloride 260 ml @ 42 mls/hr UNSCH PRN IV SEE LABEL COMMENTS; Start 07/01/17 at 09:30; Stop 07/08/17 at 08:16; Status DC Lidocaine HCl (Xylocaine-Mpf 1% Inj) 5 ml STK-MED ONCE OTHER ; Start 06/30/17 at 12:00; Stop 07/01/17 at 15:24; Status DC Propofol (Diprivan 200 Mg/20 ml Inj) 400 mg STK-MED ONCE IV ; Start 06/30/17 at 12:00; Stop 07/01/17 at 15:24; Status DC Metoclopramide HCl (Reglan Inj) 10 mg Q8HR IV PUSH Last administered on 05:33; Start 07/02/17 at 09:00 Polyethylene Glycol (Miralax) 17 gm DAILY PO Last administered on 07/12/17 09: 02; Start 07/02/17 at 09:00 Gadodiamide (Omniscan Pf Inj) 19 ml STK-MED ONCE IVCONTRAST Last administered on 07/02/17 17:13; Start 07/02/17 at 17:13; Stop 07/02/17 at 17:14; Status DC Sodium Biphosphate/ Sodium Phosphate (Fleets Enema (Adult)) 133 ml ONCE ONCE RECTAL Last administered on 07/03/17 17:23; Start 07/03/17 at 17:00; Stop at 17:01; Status DC Furosemide (Lasix Inj) 40 mg NOW ONCE IV PUSH Last administered on 07/03/17 19:20; Start 07/03/17 at 19:15; Stop 07/03/17 at 19:16; Status DC Dexmedetomidine HCl 200 mcg/ Sodium Chloride 52 ml @ 5 mls/hr TITRATE PRN IV SEDATION Last administered on 07/04/17 05:45; Start 07/03/17 at 22:00; Stop at 16:18; Status DC Acetylcysteine (Mucomyst 10% Neb) 2 ml Q6HR NEB NEB Last administered on 07:44; Start 07/04/17 at 04:00; Stop 07/05/17 at 14:10; Status DC Vancomycin HCl 1000 mg/Sodium Chloride 250 ml @ 250 mls/hr ONCE ONCE IV ; Start 07/04/17 at 08:30; Stop 07/04/17 at 09:29; Status UNV Pharmacy Profile Note 0 ml @ 0 mls/hr UNSCH OTHER ; Start 07/04/17 at 08:30; Stop 07/09/17 at 11:30; Status DC Piperacillin Sod/ Tazobactam Sod 50 ml @ 100 mls/hr Q8H IV Last administered on 07/09/17 09:36; Start 07/04/17 at 09:00; Stop 07/09/17 at 11:35; Status DC Sodium Chloride 1,000 ml @ 60 mls/hr [id number] IV Last administered on 10:06; Start 07/04/17 at 08:30; Stop 07/04/17 at 16:18; Status DC Vancomycin HCl 1700 mg/Sodium Chloride 517 ml @ 250 mls/hr Q12H IV Last administered on 07/05/17 23:08; Start 07/04/17 at 11:00; Stop 07/06/17 at 11:38 ; Status DC Miscellaneous Information SPECIFIC LAB TO BE DRAWN:VANCOMY... ONCE ONCE .XX ; Start 07/05/17 at 22:45; Stop 07/05/17 at 22:46; Status DC Metronidazole 100 ml @ 100 mls/hr Q8H IV Last administered on 07/09/17 07:15 ; Start 07/04/17 at 16:00; Stop 07/09/17 at 11:35; Status DC Albuterol/ Ipratropium (Duoneb Neb) 1 ampule Q6HR WHILE AWAKE NEB NEB Last administered on 07/04/17 15:21; Start 07/04/17 at 20:00; Stop 07/04/17 at 20:00 ; Status DC Furosemide (Lasix Inj) 40 mg ONCE ONCE IV PUSH Last administered on 07/04/17 15:36; Start 07/04/17 at 15:30; Stop 07/04/17 at 15:31; Status DC Furosemide (Lasix Inj) 40 mg STK-MED ONCE .ROUTE ; Start 07/04/17 at 15:19; Stop 07/04/17 at 15:20; Status DC Diltiazem HCl (Cardizem Inj) 10 mg ONCE ONCE IV Last administered on 16:07; Start 07/04/17 at 16:00; Stop 07/04/17 at 16:02; Status DC Diltiazem HCl (Cardizem Inj) 25 mg STK-MED ONCE .ROUTE ; Start 07/04/17 at 16:00 ; Stop 07/04/17 at 16:01; Status DC Chlordiazepoxide (Librium) 25 mg Q12H PO Last administered on 07/06/17 02:31; Start 07/05/17 at 04:00; Stop 07/06/17 at 10:08; Status DC Albuterol/ Ipratropium (Duoneb Neb) 1 ampule Q4HR NEB NEB ; Start 07/04/17 at 20:00; Stop 07/05/17 at 06:22; Status DC Albuterol/ Ipratropium (Duoneb Neb) 1 ampule Q2HR NEB PRN NEB SHORTNESS OF BREATH Last administered on 07/12/17 09:49; Start 07/04/17 at 16:15 Clonidine (Catapres) 0.2 mg Q8HR PO Last administered on 07/13/17 05:33; Start 07/04/17 at 22:00 Diltiazem HCl (Cardizem Inj) 10 mg ONCE ONCE IV Last administered on 16:22; Start 07/04/17 at 16:15; Stop 07/04/17 at 16:20; Status DC Albuterol/ Ipratropium (Duoneb Neb) 1 ampule Q6HR WHILE AWAKE NEB NEB Last administered on 07/08/17 08:59; Start 07/04/17 at 20:00; Stop 07/08/17 at 19:59 ; Status DC Bumetanide (Bumex Inj) 1 mg ONCE ONCE IV PUSH Last administered on 07/05/17 12:35; Start 07/05/17 at 11:30; Stop 07/05/17 at 11:31; Status DC Chlordiazepoxide (Librium) 25 mg DAILY PO Last administered on 07/07/17 08:21 ; Start 07/07/17 at 09:00; Stop 07/08/17 at 08:16; Status DC Vancomycin HCl 2000 mg/Sodium Chloride 520 ml @ 257.5 mls/ hr Q12H IV Last administered on 07/09/17 03:43; Start 07/06/17 at 13:00; Stop 07/09/17 at 11:30 ; Status DC Miscellaneous Information SPECIFIC LAB TO BE IGNACIO... ONCE ONCE .XX Last administered on 07/08/17 12:45; Start 07/08/17 at 12:45; Stop 07/08/17 at 12:46 ; Status DC Lactulose (Lactulose Liq) 30 ml TID PO Last administered on 07/10/17 18:21; Start 07/06/17 at 18:00; Status Future Hold Chlordiazepoxide (Librium) 20 mg DAILY PO Last administered on 07/10/17 09:48 ; Start 07/08/17 at 09:00; Stop 07/10/17 at 11:30; Status DC Miscellaneous Information SPECIFIC LAB TO BE DRAWN:VANCOMYCIN TROUGH DATE TO... ONCE ONCE .XX ; Start 07/09/17 at 12:45; Stop 07/09/17 at 12:46; Status Cancel Amoxicillin/ Clavulanate Potassium (Augmentin) 500 mg Q8HR PO Last administered on 07/13/17 05:31; Start 07/09/17 at 14:00 Albuterol/ Ipratropium (Duoneb Neb) 1 ampule Q4HR NEB NEB Last administered on 07/10/17 05:42; Start 07/09/17 at 12:00; Stop 07/10/17 at 12:08; Status DC Methylnaltrexone [place] (Relistor Inj) 12 mg ONCE ONCE SQ Last administered on 07/09/17 13:41; Start 07/09/17 at 12:45; Stop 07/09/17 at 12:52; Status DC Diatrizoate Meglum/ Diatrizoate Sod ( Gastroview Liq) 120 ml STK-MED ONCE PO Last administered on 07/10/17 09:30; Start 07/10/17 at 09:30; Stop 07/10/17 at 11:06; Status DC Diatrizoate Meglum/ Diatrizoate Sod ( Gastroview Liq) 120 ml STK-MED ONCE PO Last administered on 07/10/17 10:40; Start 07/10/17 at 10:40; Stop 07/10/17 at 11:14; Status DC Chlordiazepoxide (Librium) 15 mg ONCE ONCE PO Last administered on 07/11/17 09:37; Start 07/11/17 at 09:00; Stop 07/11/17 at 09:01; Status DC Lorazepam (Ativan) 0.5 mg Q6HR PRN PO ANXIETY; Start 07/10/17 at 12:00 Potassium Chloride (KCl) 20 meq ONCE ONCE PO Last administered on 07/10/17 14 :35; Start 07/10/17 at 13:00; Stop 07/10/17 at 13:01; Status DC A/P Problem List: (1) Esophageal varices ICD Code: I85.00 - Esophageal varices without bleeding (2) Gastrointestinal bleed ICD Code: K92.2 - Gastrointestinal hemorrhage, unspecified (3) GERD Status: Chronic (4) Alcohol use ICD Code: Z78.9 - Other specified health status Status: Acute (5) Tobacco abuse ICD Code: Z72.0 - Tobacco use Status: Chronic (6) Jaundice ICD Code: R17 - Unspecified jaundice (7) Gastritis ICD Code: K29.70 - Gastritis, unspecified, without bleeding Status: Acute (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 Patient with history of right zygomatic/maxillary sinus surgery 2015 CT C-spine 07/01 negative findings Tramadol 50-100 mg every 4 hours as needed pain Atherosclerotic vascular disease Dyslipidemia Hypertension Monitor HR and BP On Clonidine 0.2mg Q8 for BP control Possible Aspiration pneumonia Tobaccoism History of asthma/reactive airway disease Continue with oxygen keep sat> 92% continue neb treatments. switched to po Augmentin Pulmonary is following-Dr. Horan acute kidney injury non-oliguric- will monitor the renal function closely;BMP today pending. renal sonogram with no acute abnormality. nephrology evaluation appreciated. History esophageal cancer? Menendez's esophagus Gastroesophageal reflux disease Gout Gastritis/duodenitis Splenomegaly ileus on liquid diet EGD 06/30 by GI revealed mild gastritis, duodenitis. Likely esophagitis/Menendez' s not biopsied. Pantoprazole 40 mg IV daily for GI prophylaxis continue Lactulose and Xifaxan . CT abdomen/pelvis revealed splenomegaly 19.3 cm. varices at the esophageal hiatus, gastric ligament and left upper quadrant. Renal splenic shunt appreciated. MRI abdomen showed Hepatomegaly and hepatic steatosis. No focal mass identified. Moderate splenomegaly. Small amount of ascites.Small bilateral pleural effusions. Liver workup including JOSE, ASMA, Hep profile all negative GI following. Elevated TSH 6.7. History of gout Sliding-scale insulin Novulin R every 4 hrs for maintain euglycemia hypokalemia replaced. Macrocytic anemia Thrombocytopenia chronic likely secondary to underlying EtOH /cirrhotic liver disease-(improving) Monitor CBC/coags No signs of hemolysis/consumption thrombocytopenia. This appears to be a chronic condition Right ankle pain X-ray right ankle rule out fracture-Soft tissue mass noted to be fluid filled on ultrasound 09/10/2012. No acute fracture PT evaluate and treat Prophylaxis - GI - pantoprazole - DVT - SCD/holding pharmacological prophylaxis in light of thrombocytopenia palliative care evaluation appreciated. previously d/w the patient regarding the code status and he wants to stay on full-code status. Tyson Boyd MD Jul 13, 2017 09:11
[2017-07-13] MEDS: guaiFENesin E.R. 600 MG TAB PO SCH ×2 (10:16→21:07)
[2017-07-13] MEDS: DOCUSATE SODIUM 50 MG/SENNA 8.6 MG TAB PO SCH ×2 (10:16→21:08)
[2017-07-13] MEDS: RIFAXIMIN 550 MG TAB PO SCH ×2 (10:16→21:00)
[2017-07-13] MEDS: THIAMINE HCL 100 MG TAB PO SCH (10:16)
[2017-07-13] MEDS: NICOTINE 14 MG/24 HR PATCH T-DERMAL SCH (10:17)
[2017-07-13] MEDS: PANTOPRAZOLE SODIUM 40 MG VIAL IV SCH ×2 (10:17→21:08)
[2017-07-13] MEDS: POLYETHYLENE GLYCOL 17 GM PKG PO SCH (10:17)
[2017-07-13] MEDS: SODIUM CHLORIDE 0.9% FLUSH 10 ML FLUSH IV FLUSH SCH ×2 (10:18→21:10)
[2017-07-13 10:25] LABS: BICARBONATE 22.2 MEQ/L (21.0-32.0); CREATININE 2.4 MG/DL (0.60-1.30)
[2017-07-13] MEDS: traMADol HCL 50 MG TAB PO PRN ×2 (10:29→21:28)
--- NOTE | 2017-07-13 10:43 | HHI.NPPN ---
Subjective History of Present Illness 51-year-old male with a past medical history of cirrhosis of the liver, bronchial asthma, depression, hyperlipidemia, pancreatitis, Menendez's esophagus, chronic abdominal pain, possible history of gastric ulcer and varices, questionable esophageal cancer who was admitted with abdominal pain and distension. I was called to see the patient because of elevated BUN and creatinine. Additional Remarks Patient is alert, feeling better, started eating better, no SOB. Review of Systems General Constitutional: Fatigue Respiratory Lungs: Wheeze Cardiovascular Cardiac: CORTES Gastrointestinal Gastrointestinal: Abdominal Pain Objective Data Data Vital Signs Date Time Temp Pulse Resp B/P (MAP) Pulse Ox O2 Delivery O2 Flow Rate FiO2 07/13/17 08:43 97.7 64 16 111/56 (74) 98 07/13/17 08:27 95 21 07/13/17 04:00 97.8 71 20 123/65 (84) 98 07/13/17 00:00 98.4 70 20 115/64 (81) 96 07/12/17 21:23 97.8 69 110/60 (77) 98 07/12/17 16:00 97.4 76 20 118/70 (86) 98 07/12/17 12:00 97.3 77 20 115/66 (82) 98 07/12/17 10:50 75 -: 07/13/17 0911 Physical Exam General Appearance: No Acute Distress, Anxious Throat Throat Exam: Oral Mucosa Palominas & Moist Neck Neck Exam: Neck Supple Pulmonary Resp Exam: Breath Sounds Equal, Rhonchi, Decreased Bases Cardiology CV Exam: Regular, Normal Sinus Rhythm Gastrointestinal/Abdomen GI Exam: Soft, Non-Tender, Distended Extremeties Extremities Exam: Trace Edema Neurologic Neuro Exam: Alert, Awake, Oriented Assessment/Plan Assessment Summary: DON/Acute Renal Failure Problem List: (1) Acute kidney injury ICD Codes: N17.9 - Acute kidney failure, unspecified (2) Encephalopathy ICD Codes: G93.40 - Encephalopathy, unspecified (3) Anemia ICD Codes: D64.9 - Anemia, unspecified Status: Acute (4) Jaundice ICD Codes: R17 - Unspecified jaundice (5) Gastritis ICD Codes: K29.70 - Gastritis, unspecified, without bleeding Status: Acute (6) 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 Normal size kidneys and has Normal Na. in the urine. Urine Eosinophils is negative. Most likely has ATN causing DON. Has elevated Bilirubin. BP is stable, Creatinine now stable at 2.4-2.5. Follow the urine out put and BMP. Avoid Nephrotoxins. Linette Guerra MD Jul 13, 2017 10:42
--- NOTE | 2017-07-13 11:49 | HHI.GIFU ---
Subjective Remarks Resting in bed. Lethargic. Remains distended. Denies any nausea/vomiting. Continues to have abdominal distention and tenderness on exam. States he has not had a bowel movement because he still has the rectal tube in. (Yoli Koenig) Objective Vitals I&O Vital Signs Date Time Temp Pulse Resp B/P (MAP) Pulse Ox O2 Delivery O2 Flow Rate FiO2 07/13/17 08:43 97.7 64 16 111/56 (74) 98 07/13/17 08:27 95 21 07/13/17 04:00 97.8 71 20 123/65 (84) 98 07/13/17 00:00 98.4 70 20 115/64 (81) 96 07/12/17 21:23 97.8 69 110/60 (77) 98 07/12/17 16:00 97.4 76 20 118/70 (86) 98 07/12/17 12:00 97.3 77 20 115/66 (82) 98 I/O 07/12/17 07/12/17 07/12/17 07/13/17 07/13/17 07/13/17 07:00 15:00 23:00 07:00 15:00 23:00 Intake Total 940 ml Output Total 350 ml 525 ml 450 ml Balance -350 ml 415 ml -450 ml Intake Oral 940 ml Output Urine Total 350 ml 525 ml 450 ml Laboratory Laboratory Tests Test 07/13/17 09:11 Blood Urea Nitrogen 23 Creatinine 2.40 Random Glucose 80 Calcium Level 8.0 Sodium Level 134 Potassium Level 3.9 Chloride Level 104 Carbon Dioxide Level 22.2 Anion Gap 8 Estimat Glomerular Filtration Rate 29 Date/Time Source Procedure Growth Status 07/04/17 13:00 Blood Peripheral Aerobic Blood Culture - Final NO GROWTH IN 5 DAYS Complete 07/04/17 13:00 Blood Peripheral Anaerobic Blood Culture - Final NO GROWTH IN 5 DAYS Complete 07/04/17 10:00 Sputum Expectorated Sputum Gram Stain - Final Complete 07/04/17 10:00 Sputum Expectorated Sputum Sputum Culture - Final HEAVY GROWTH NORMAL RESPIRATORY BRENNAN Complete 07/09/17 12:38 Urine Catheterized Urine Urine Culture - Final NO GROWTH IN 48 HOURS. Complete Imaging Last Impressions Abdomen X-Ray 07/10/17 0600 Signed Impressions: Service Date/Time: Monday, July 10, 2017 06:31 - CONCLUSION: Dilated small bowel. Some degree of obstruction needs to be considered. Nikko Mason MD Small Bowel X-Ray 07/10/17 0000 Signed Impressions: Service Date/Time: Monday, July 10, 2017 08:26 - CONCLUSION: 1. Diffuse small bowel dilatation and delayed small bowel transit time of approximately 5- 6 hours without focal transition point, intraluminal filling defect or gross mass. Findings are most consistent with moderate adynamic ileus. Bryson Downing MD Renal Ultrasound 07/10/17 0000 Signed Impressions: Service Date/Time: Monday, July 10, 2017 18:25 - CONCLUSION: 1. Unremarkable renal ultrasound. Mild ascites. Albert Walden MD Chest X-Ray 07/09/17 0600 Signed Impressions: Service Date/Time: July 06:10 - CONCLUSION: 1. Minimal basilar dependent density. Differential diagnosis includes atelectasis. Findings similar to prior exam. Albert Walden MD Chest CT 07/05/17 1635 Signed Impressions: Service Date/Time: Wednesday, July 05, 2017 18:11 - CONCLUSION: 1. Segmental consolidation with volume loss medial right lower lung. 2. Atelectasis or basilar consolidation left lower lung. 3. Mild amount of ascites. Caesar Ann MD Abdomen MRI 07/02/17 0000 Signed Impressions: Service Date/Time: June 16:34 - CONCLUSION: 1. Hepatomegaly and hepatic steatosis. No focal mass identified. 2. Moderate splenomegaly. 3. Small amount of ascites. 4. Small bilateral pleural effusions. Wilbert Howe MD Ankle X-Ray 07/01/17 0000 Signed Impressions: Service Date/Time: Saturday, July 01, 2017 10:22 - CONCLUSION: Soft tissue mass noted to be fluid filled on ultrasound 09/10/2012. Colten Nelson MD FACR Head CT 06/30/17 0000 Signed Impressions: Service Date/Time: Saturday, July 01, 2017 02:24 - CONCLUSION: 1. No acute intracranial abnormalities. Previous fixation left maxillary sinus. Albert Walden MD Cervical Spine CT 06/30/17 0000 Signed Impressions: Service Date/Time: Saturday, July 01, 2017 02:24 - CONCLUSION: Normal examination for a patient of this age. Albert Walden MD Abdomen/Pelvis CT 06/29/17 0000 Signed Impressions: Service Date/Time: Thursday, June 29, 2017 12:52 - CONCLUSION: 1. Hepatosplenomegaly and varices noted as above. 2. Atherosclerosis. 3. Abnormal diffuse heterogeneous appearance of the liver which may be related to either marked hepatic steatosis in an inhomogeneous fashion versus steatosis and underlying diffuse liver masses. An MRI of the abdomen with and without contrast may be helpful for further evaluation of this finding. Navjot Chirinos MD Physical Exam HEENT: Normocephalic; atraumatic; + jaundice. CHEST: Resp. even/shallow, diminished CARDIAC: RRR ABDOMEN: Abdomen tympanic, distended, mild diffuse tenderness; bowel sounds are hypoactive. Rectal tube in place with liquid brown stool. EXTREMITIES: No clubbing, cyanosis, or edema. SKIN: + jaundice. 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 (Yoli Koenig) Assessment and Plan Plan ASSESSMENT: - Persistent ileus. CT scan abdomen and pelvis (06/29/17)----> Hepatosplenomegaly and varices noted as above. Atherosclerosis. Abnormal diffuse heterogeneous appearance of the liver which may be related to either marked hepatic steatosis in an inhomogeneous fashion versus steatosis and underlying diffuse liver masses. An MRI of the abdomen with and without contrast may be helpful for further evaluation of this finding. Pt states this pain began after a hernia repair in July of 2016 and is intermittent at times, but usually more constant. S/P Fleets enema. KUB (07/07/17)---> No significant change mild to moderate bowel distention. S/P SBFT (07/10/17)---> Diffuse small bowel dilatation and delayed small bowel transit time of approximately 5-6 hours without focal transition point, intraluminal filling defect or gross mass. Findings are most consistent with moderate adynamic ileus. Nurse reports that he put out 2,000cc of liquid stool today. S/P Relistor (07/09). Reglan, Miralax. Lactulose is on hold. Pt with persistent distention. KUB ( 07/10/17)---> dilated small bowel. Some degree of obstruction needs to be considered. Will add bethanechol, amitiza. - Questionable upper GI bleeding. Pt presented to ER with nausea/vomiting with dark emesis and occasional red blood and intermittent dark stools. Not actively bleeding. Of note, does report that he has had nose bleeds x 2 days. However, he does have evidence of liver cirrhosis and varcies on CT imaging. EGD/Colonoscopy (12/24/15)---> There was a 5 cm segment of suspected Menendez's esophagus found in the distal esophagus, multiple biopsies were performed, there was erythematous gastritis in the entire examined stomach; multiple biopsies were performed, normal duodenal mucosa in the bulb and second portion of the duodenum, retroflexion was performed and was normal; the colon mucosa was otherwise normal, retroflexed views revealed no abnormalities. Pathology with gastric antral mucosal biopsies with histopathologic features consistent with chemical gastropathy, as may bee seen with bile reflux, non-steroidal anti-inflammatory drugs or other drug induced disease negative for intestinal metaplasia and dysplasia, farhat stain negative for helicobacter. GE mucosal biopsies with chronic inflammatory gastric changes consistent with reflux exhibiting extensive intestinal metaplasia, negative for dysplasia. 1. 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 Gastropathy and mild gastritis 3. Moderate duodenitis 4. No active bleeding and no sign of old bleeding 5. Retroflexed views revealed no abnormalities PPI. No active bleeding. HH stable. Will recheck tomorrow. - Liver cirrhosis/Elevated LFTs. Pt reports that he has been told that his liver was enlarged, but never told that he had liver cirrhosis. He continues to drink ETOH, stating [address] has findings of varcies, he has thrombocytopenia, coagulopathy, hypoalbuminemia, all of which support a dx of liver cirrhosis. MRI (07/02/17)---> hepatomegaly and hepatic steatosis, no focal mass identified. Moderate splenomegaly, small amount of of ascites. Small bilateral pleural effusion. Will check liver workup to r/o other underlying liver disease- JOSE negative, AMA <20.0, ASMA negative, AFP 4.6. ALpha 1 Antitrypsin 221, Ceruloplasmin 37, Ferritin 94, Iron saturation 14.0%. Hepatitis profile neg. This is likely related to ETOH. DF 6.0. MELD 13. - Diarrhea- Negative for C-diff. Pt with ileus, rectal tube with liquid stool. - Menendez's Esophagus, GERD. Takes ranitidine as needed at home, has daily symptoms. EGD as above. PPI - Thrombocytopenia, Coagulopathy. Likely related to cirrhosis. - Anemia, macrocytic. HH stable, Folate 17.2, B12 1711. - Hepatic encephalopathy, Ammonia 66. Lactulose on hold for worsening distention. Getting Xifaxan. Still very lethargic, confused, but does arouse and follows commands once awake. - ETOH abuse. DT precautions per attending. - DON, worsening renal function. Creat 2.40. Renal following, most likely has ATN causing DON. - Resp. Insufficiency/Asthma, per attending. - Depression, Hyperlipidemia. Per attending. PLAN: - Full liquids - Cont. Reglan - Cont. Miralax - Cont. Protonix - Cont. Xifaxan - Add Bethanechol - Trial of Amitiza - KUB in am - CBC, CMP in am - Supportive care - Further recommendations to follow based on results of above - PT seen and examined by Dr. Cowan and myself and this note is written on his behalf (Yoli Koenig) Physician Comments Seen and examined with TRUCK SERVICE TECHNICIAN, abdomen still distended. Small bowel Illeus on kub , added amitiza today. Continue bowel regimen. Repeat kub in am. (Tanya Cowan MD) Yoli Koenig Jul 13, 2017 11:49 Tanya Cowan MD Jul 13, 2017 12:40
[2017-07-13] MEDS: BETHANECHOL CHL 25 MG TAB PO SCH ×2 (14:22→21:08)
--- NOTE | 2017-07-13 15:27 | HHI.HCPN ---
Reason for visit a. To assist with evaluation and management of symptoms including: pain, encephalopathy, and dyspnea b. To assist medical decision maker(s) with: better understanding of current medical conditions; weighing benefits/burdens of medical treatment options; making medical treatment decisions. . Subjective/Interval History Mr. Martin is a 51-year-old male with a history of depression, GERD, hyperlipidemia, pancreatitis, Menendez's esophagus, gastritis, psychiatric disorders, chronic abdominal pain, gout, history of varices and a possible history of esophageal cancer-patient is a poor historian. He presented to [facility] ED on 06/29/2017 for evaluation of nonspecific abdominal pain. Patient admitted for esophageal varices, GI bleed, and EtOH withdrawal. Patient examined in room, patient sitting up on the edge of the bed, eating lunch, son Major at bedside. Patient alert and awake, oriented x 3. Patient reports his abdominal pain has improved however now he has abdominal pain in a new location, he reports it is in his lower abdomen, he describes the pain as a constant ache. Patient's abdomen remains distended and firm. Follow up KUB ordered for the morning. BUN/Creatinine remain elevated, 23/2.40. Palliative Care continues to follow to assist with symptom management and to discuss with the patient/family the benefits and burdens of his current illnesses and the options regarding future care. . Family/friend interactions Bedside discussion with patient and sylvia Gonsalves. Advance Directives Health Care Surrogate: Copy in medical record Advance Directive Specifics Date completed: 07/13/17 . Health Care Surrogate(s): German Martin (son) [phone] Jeanine Salgado (former spouse) [phone] Documented care wishes: No known documented care wishes. . Objective Vital Signs Date Time Temp Pulse Resp B/P (MAP) Pulse Ox O2 Delivery O2 Flow Rate FiO2 07/13/17 12:34 98.5 69 18 101/56 (71) 94 07/13/17 08:43 97.7 64 16 111/56 (74) 98 07/13/17 08:27 95 21 07/13/17 08:00 74 07/13/17 04:00 97.8 71 20 123/65 (84) 98 07/13/17 00:00 98.4 70 20 115/64 (81) 96 07/12/17 21:23 97.8 69 110/60 (77) 98 07/12/17 16:00 97.4 76 20 118/70 (86) 98 Intake & Output 07/13/17 07/13/17 07:00 19:00 Intake Total 720 ml Output Total 450 ml Balance -450 ml 720 ml Intake Oral 720 ml Output Urine Total 450 ml Physical Exam CONSTITUTIONAL/GENERAL: This is an adequately nourished, middle aged male in no acute distress. TUBES/LINES/DRAINS: Sanchez catheter, rectal tube, PIV 2 SKIN: + Jaundice EYES: Pupils equal and round. + scleral icterus. No injection or drainage. ENT: Hearing grossly normal. Nose without bleeding or purulent drainage. CARDIOVASCULAR: Regular rate and rhythm without murmurs, gallops, or rubs. No JVD. Peripheral pulses symmetric. RESPIRATORY/CHEST: Breath sounds diminished bilaterally; respirations shallow, expiratory wheezes. GASTROINTESTINAL: Abdomen is distended; limited palpation secondary to tenderness. Active bowel sounds. Rectal tube in place. GENITOURINARY: Condom catheter. MUSCULOSKELETAL: Extremities without clubbing, cyanosis, or edema. No mottling or clubbing. NEUROLOGICAL: Alert and awake. Oriented x 3. Follows commands. PSYCHIATRIC: No obvious anxiety/depression. no apparent hallucinations or other psychotic thought process. . Diagnostic Tests Laboratory Laboratory Tests Test 07/10/17 19:30 07/11/17 01:50 07/11/17 05:10 07/12/17 07:03 Stool C. difficile Toxin (PCR) NEGATIVE (NEGATIVE) Stl C. difficile Toxin Epiderm 027 PRESUMPTIVE NEGATIVE Urine Eosinophils NONE SEEN /HPF (NONE SEEN) Urine Osmolality 295 MOSM/KG (300-1300) Urine Random Sodium 21 MEQ/L Blood Urea Nitrogen 19 MG/DL (7-18) 22 MG/DL (7-18) Creatinine 2.46 MG/DL (0.60-1.30) 2.59 MG/DL (0.60-1.30) Random Glucose 136 MG/DL (74-106) 99 MG/DL (74-106) Calcium Level 7.8 MG/DL (8.5-10.1) 7.9 MG/DL (8.5-10.1) Sodium Level 143 MEQ/L (136-145) 136 MEQ/L (136-145) Potassium Level 3.6 MEQ/L (3.5-5.1) 3.7 MEQ/L (3.5-5.1) Chloride Level 112 MEQ/L (98-107) 105 MEQ/L (98-107) Carbon Dioxide Level 21.9 MEQ/L (21.0-32.0) 21.7 MEQ/L (21.0-32.0) Anion Gap 9 MEQ/L (5-15) 9 MEQ/L (5-15) Estimat Glomerular Filtration Rate 28 ML/MIN (>89) 26 ML/MIN (>89) Test 07/13/17 09:11 Blood Urea Nitrogen 23 MG/DL (7-18) Creatinine 2.40 MG/DL (0.60-1.30) Random Glucose 80 MG/DL (74-106) Calcium Level 8.0 MG/DL (8.5-10.1) Sodium Level 134 MEQ/L (136-145) Potassium Level 3.9 MEQ/L (3.5-5.1) Chloride Level 104 MEQ/L (98-107) Carbon Dioxide Level 22.2 MEQ/L (21.0-32.0) Anion Gap 8 MEQ/L (5-15) Estimat Glomerular Filtration Rate 29 ML/MIN (>89) Result Diagram: 07/13/17 0911 Procedures 06/30/17: EGD . Assessment and Plan Disease Oriented Problem List: (1) Gastrointestinal bleed (2) Esophageal varices (3) Tobacco abuse (4) Jaundice (5) Gastritis (6) Menendez esophagus Symptom Scale: (1) Pain (2) Dyspnea (3) Encephalopathy Pertinent Non-Medical Issues Psychosocial:Patient is originally from [facility]. He moved to [place] approximately 20 years ago. 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 Patient is but has 4 adult children from this marriage. (Abbey Donnelly, Nikko and Sergio). Apparently he also has a 14-year- old daughter from a different relationship; she lives in [place]. Spiritual: Yarsani ariana Legal: Patient is not . He has 4 adult children (Abbey Donnelly, Nikko and Sergio). Per [place] statutes, in the absence of written advanced directives healthcare proxy decision making would fall to the majority of these 4 children. Son, Andrzej, was present at bedside. He states his siblings would not want to participate in medical decision making; he was willing to provide names and numbers so each could be given the opportunity to opt out of healthcare proxy decision-making. Messages were left for the other 3 siblings ( Abbey, Nikko, Sergio), awaiting return phone calls. Ethical issues impacting care: No known ethical issues impacting care at this time . . Important Contacts Major (HCS), son: [phone] Tea Calhoun, spouse/former spouse: [phone] Abbey, daughter [phone] Nikko, son, Sergio, son: [phone] . Prognosis Patient is a 51-year-old male with multiple comorbid conditions. He was admitted with suspected GI bleed, persistent ileus, liver cirrhosis/elevated LFTs, thrombocytopenia/coagulopathy and hepatic encephalopathy. Now being treated for pneumonia. He is not a candidate for liver transplant. He is at high risk for ongoing complications and decline. . Code Status: Full Code Plan * FULL CODE: Addressed code status with patient again today to confirm, patient endorses he would like to remain a full code and verbalizes aggressive goals. * Decision-making: Patient has waxing and waning neurological status. Suggest shared decision making with patient's son German Martin. Patient designated Major as his [facility] today. A copy of the completed HCS form placed on paper chart, copy faxed to HIM, and original copy provided to patient/son. * Symptom management - encephalopathy: CT brain 07/01 revealed no acute intracranial findings. Hyperalbuminemia/liver cirrhosis/elevated LFTs. Patient on lactulose 30mL TID, rifaximin 550mg BID. No recommendations at this time. * Symptom management - dyspnea: Oxygen saturation in the mid to high 90s on 3L nasal cannula. Duonebs 1 ampule q 2hr PRN for shortness of breath. He is currently being treated for pneumonia.No recommendations. * Symptom management- pain: Multifactorial, secondary to ileus versus SBO, liver failure. Morphine 2mg q 3hr PRN for pain ordered, last dose 07/08/17 @ 0843 , tramadol 100mg q 4 hr PRN for pain, last dose 07/10/17 @ 0952, only one dose utilized in the past 24 hours. * Palliative care will continue to follow this patient throughout his hospitalization to establish trust, assist with symptom management and clarification of medical treatment goals. . Dinora Lock Jul 13, 2017 15:27
--- NOTE | 2017-07-13 15:27 | HHI.HCPN ---
Reason for visit a. To assist with evaluation and management of symptoms including: pain, encephalopathy, and dyspnea b. To assist medical decision maker(s) with: better understanding of current medical conditions; weighing benefits/burdens of medical treatment options; making medical treatment decisions. . Subjective/Interval History Mr. Martin is a 51-year-old male with a history of depression, GERD, hyperlipidemia, pancreatitis, Menendez's esophagus, gastritis, psychiatric disorders, chronic abdominal pain, gout, history of varices and a possible history of esophageal cancer-patient is a poor historian. He presented to [facility] ED on 06/29/2017 for evaluation of nonspecific abdominal pain. Patient admitted for esophageal varices, GI bleed, and EtOH withdrawal. Patient examined in room, patient sitting up on the edge of the bed, eating lunch, son Major at bedside. Patient alert and awake, oriented x 3. Patient reports his abdominal pain has improved however now he has abdominal pain in a new location, he reports it is in his lower abdomen, he describes the pain as a constant ache. Patient's abdomen remains distended and firm. Follow up KUB ordered for the morning. BUN/Creatinine remain elevated, 23/2.40. Palliative Care continues to follow to assist with symptom management and to discuss with the patient/family the benefits and burdens of his current illnesses and the options regarding future care. . Family/friend interactions Bedside discussion with patient and sylvia Gonsalves. Advance Directives Health Care Surrogate: Copy in medical record Advance Directive Specifics Date completed: 07/13/17 . Health Care Surrogate(s): German Martin (son) [phone] Jeanine Salgado (former spouse) [phone] Documented care wishes: No known documented care wishes. . Objective Vital Signs Date Time Temp Pulse Resp B/P (MAP) Pulse Ox O2 Delivery O2 Flow Rate FiO2 07/13/17 12:34 98.5 69 18 101/56 (71) 94 07/13/17 08:43 97.7 64 16 111/56 (74) 98 07/13/17 08:27 95 21 07/13/17 08:00 74 07/13/17 04:00 97.8 71 20 123/65 (84) 98 07/13/17 00:00 98.4 70 20 115/64 (81) 96 07/12/17 21:23 97.8 69 110/60 (77) 98 07/12/17 16:00 97.4 76 20 118/70 (86) 98 Intake & Output 07/13/17 07/13/17 07:00 19:00 Intake Total 720 ml Output Total 450 ml Balance -450 ml 720 ml Intake Oral 720 ml Output Urine Total 450 ml Physical Exam CONSTITUTIONAL/GENERAL: This is an adequately nourished, middle aged male in no acute distress. TUBES/LINES/DRAINS: Sanchez catheter, rectal tube, PIV 2 SKIN: + Jaundice EYES: Pupils equal and round. + scleral icterus. No injection or drainage. ENT: Hearing grossly normal. Nose without bleeding or purulent drainage. CARDIOVASCULAR: Regular rate and rhythm without murmurs, gallops, or rubs. No JVD. Peripheral pulses symmetric. RESPIRATORY/CHEST: Breath sounds diminished bilaterally; respirations shallow, expiratory wheezes. GASTROINTESTINAL: Abdomen is distended; limited palpation secondary to tenderness. Active bowel sounds. Rectal tube in place. GENITOURINARY: Condom catheter. MUSCULOSKELETAL: Extremities without clubbing, cyanosis, or edema. No mottling or clubbing. NEUROLOGICAL: Alert and awake. Oriented x 3. Follows commands. PSYCHIATRIC: No obvious anxiety/depression. no apparent hallucinations or other psychotic thought process. . Diagnostic Tests Laboratory Laboratory Tests Test 07/10/17 19:30 07/11/17 01:50 07/11/17 05:10 07/12/17 07:03 Stool C. difficile Toxin (PCR) NEGATIVE (NEGATIVE) Stl C. difficile Toxin Epiderm 027 PRESUMPTIVE NEGATIVE Urine Eosinophils NONE SEEN /HPF (NONE SEEN) Urine Osmolality 295 MOSM/KG (300-1300) Urine Random Sodium 21 MEQ/L Blood Urea Nitrogen 19 MG/DL (7-18) 22 MG/DL (7-18) Creatinine 2.46 MG/DL (0.60-1.30) 2.59 MG/DL (0.60-1.30) Random Glucose 136 MG/DL (74-106) 99 MG/DL (74-106) Calcium Level 7.8 MG/DL (8.5-10.1) 7.9 MG/DL (8.5-10.1) Sodium Level 143 MEQ/L (136-145) 136 MEQ/L (136-145) Potassium Level 3.6 MEQ/L (3.5-5.1) 3.7 MEQ/L (3.5-5.1) Chloride Level 112 MEQ/L (98-107) 105 MEQ/L (98-107) Carbon Dioxide Level 21.9 MEQ/L (21.0-32.0) 21.7 MEQ/L (21.0-32.0) Anion Gap 9 MEQ/L (5-15) 9 MEQ/L (5-15) Estimat Glomerular Filtration Rate 28 ML/MIN (>89) 26 ML/MIN (>89) Test 07/13/17 09:11 Blood Urea Nitrogen 23 MG/DL (7-18) Creatinine 2.40 MG/DL (0.60-1.30) Random Glucose 80 MG/DL (74-106) Calcium Level 8.0 MG/DL (8.5-10.1) Sodium Level 134 MEQ/L (136-145) Potassium Level 3.9 MEQ/L (3.5-5.1) Chloride Level 104 MEQ/L (98-107) Carbon Dioxide Level 22.2 MEQ/L (21.0-32.0) Anion Gap 8 MEQ/L (5-15) Estimat Glomerular Filtration Rate 29 ML/MIN (>89) Result Diagram: 07/13/17 0911 Procedures 06/30/17: EGD . Assessment and Plan Disease Oriented Problem List: (1) Gastrointestinal bleed (2) Esophageal varices (3) Tobacco abuse (4) Jaundice (5) Gastritis (6) Menendez esophagus Symptom Scale: (1) Pain (2) Dyspnea (3) Encephalopathy Pertinent Non-Medical Issues Psychosocial:Patient is originally from [facility]. He moved to [place] approximately 20 years ago. 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 Patient is but has 4 adult children from this marriage. (Abbey Donnelly, Nikko and Sergio). Apparently he also has a 14-year- old daughter from a different relationship; she lives in [place]. Spiritual: Pentecostal ariana Legal: Patient is not . He has 4 adult children (Abbey Donnelly, Nikko and Sergio). Per [place] statutes, in the absence of written advanced directives healthcare proxy decision making would fall to the majority of these 4 children. Son, Andrzej, was present at bedside. He states his siblings would not want to participate in medical decision making; he was willing to provide names and numbers so each could be given the opportunity to opt out of healthcare proxy decision-making. Messages were left for the other 3 siblings ( Abbey, Nikko, Sergio), awaiting return phone calls. Ethical issues impacting care: No known ethical issues impacting care at this time . . Important Contacts Major (HCS), son: [phone] Tea Calhoun, spouse/former spouse: [phone] Abbey, daughter [phone] Nikko, son, Sergio, son: [phone] . Prognosis Patient is a 51-year-old male with multiple comorbid conditions. He was admitted with suspected GI bleed, persistent ileus, liver cirrhosis/elevated LFTs, thrombocytopenia/coagulopathy and hepatic encephalopathy. Now being treated for pneumonia. He is not a candidate for liver transplant. He is at high risk for ongoing complications and decline. . Code Status: Full Code Plan * FULL CODE: Addressed code status with patient again today to confirm, patient endorses he would like to remain a full code and verbalizes aggressive goals. * Decision-making: Patient has waxing and waning neurological status. Suggest shared decision making with patient's son German Martin. Patient designated Major as his [facility] today. A copy of the completed HCS form placed on paper chart, copy faxed to HIM, and original copy provided to patient/son. * Symptom management - encephalopathy: CT brain 07/01 revealed no acute intracranial findings. Hyperalbuminemia/liver cirrhosis/elevated LFTs. Patient on lactulose 30mL TID, rifaximin 550mg BID. No recommendations at this time. * Symptom management - dyspnea: Oxygen saturation in the mid to high 90s on 3L nasal cannula. Duonebs 1 ampule q 2hr PRN for shortness of breath. He is currently being treated for pneumonia.No recommendations. * Symptom management- pain: Multifactorial, secondary to ileus versus SBO, liver failure. Morphine 2mg q 3hr PRN for pain ordered, last dose 07/08/17 @ 0843 , tramadol 100mg q 4 hr PRN for pain, last dose 07/10/17 @ 0952, only one dose utilized in the past 24 hours. * Palliative care will continue to follow this patient throughout his hospitalization to establish trust, assist with symptom management and clarification of medical treatment goals. . Dinora Lock Jul 13, 2017 15:27
--- NOTE | 2017-07-13 15:27 | HHI.HCPN ---
Reason for visit a. To assist with evaluation and management of symptoms including: pain, encephalopathy, and dyspnea b. To assist medical decision maker(s) with: better understanding of current medical conditions; weighing benefits/burdens of medical treatment options; making medical treatment decisions. . Subjective/Interval History Mr. Martin is a 51-year-old male with a history of depression, GERD, hyperlipidemia, pancreatitis, Menendez's esophagus, gastritis, psychiatric disorders, chronic abdominal pain, gout, history of varices and a possible history of esophageal cancer-patient is a poor historian. He presented to [facility] ED on 06/29/2017 for evaluation of nonspecific abdominal pain. Patient admitted for esophageal varices, GI bleed, and EtOH withdrawal. Patient examined in room, patient sitting up on the edge of the bed, eating lunch, son Major at bedside. Patient alert and awake, oriented x 3. Patient reports his abdominal pain has improved however now he has abdominal pain in a new location, he reports it is in his lower abdomen, he describes the pain as a constant ache. Patient's abdomen remains distended and firm. Follow up KUB ordered for the morning. BUN/Creatinine remain elevated, 23/2.40. Palliative Care continues to follow to assist with symptom management and to discuss with the patient/family the benefits and burdens of his current illnesses and the options regarding future care. . Family/friend interactions Bedside discussion with patient and sylvia Gonsalves. Advance Directives Health Care Surrogate: Copy in medical record Advance Directive Specifics Date completed: 07/13/17 . Health Care Surrogate(s): German Martin (son) [phone] Jeanine Salgado (former spouse) [phone] Documented care wishes: No known documented care wishes. . Objective Vital Signs Date Time Temp Pulse Resp B/P (MAP) Pulse Ox O2 Delivery O2 Flow Rate FiO2 07/13/17 12:34 98.5 69 18 101/56 (71) 94 07/13/17 08:43 97.7 64 16 111/56 (74) 98 07/13/17 08:27 95 21 07/13/17 08:00 74 07/13/17 04:00 97.8 71 20 123/65 (84) 98 07/13/17 00:00 98.4 70 20 115/64 (81) 96 07/12/17 21:23 97.8 69 110/60 (77) 98 07/12/17 16:00 97.4 76 20 118/70 (86) 98 Intake & Output 07/13/17 07/13/17 07:00 19:00 Intake Total 720 ml Output Total 450 ml Balance -450 ml 720 ml Intake Oral 720 ml Output Urine Total 450 ml Physical Exam CONSTITUTIONAL/GENERAL: This is an adequately nourished, middle aged male in no acute distress. TUBES/LINES/DRAINS: Sanchez catheter, rectal tube, PIV 2 SKIN: + Jaundice EYES: Pupils equal and round. + scleral icterus. No injection or drainage. ENT: Hearing grossly normal. Nose without bleeding or purulent drainage. CARDIOVASCULAR: Regular rate and rhythm without murmurs, gallops, or rubs. No JVD. Peripheral pulses symmetric. RESPIRATORY/CHEST: Breath sounds diminished bilaterally; respirations shallow, expiratory wheezes. GASTROINTESTINAL: Abdomen is distended; limited palpation secondary to tenderness. Active bowel sounds. Rectal tube in place. GENITOURINARY: Condom catheter. MUSCULOSKELETAL: Extremities without clubbing, cyanosis, or edema. No mottling or clubbing. NEUROLOGICAL: Alert and awake. Oriented x 3. Follows commands. PSYCHIATRIC: No obvious anxiety/depression. no apparent hallucinations or other psychotic thought process. . Diagnostic Tests Laboratory Laboratory Tests Test 07/10/17 19:30 07/11/17 01:50 07/11/17 05:10 07/12/17 07:03 Stool C. difficile Toxin (PCR) NEGATIVE (NEGATIVE) Stl C. difficile Toxin Epiderm 027 PRESUMPTIVE NEGATIVE Urine Eosinophils NONE SEEN /HPF (NONE SEEN) Urine Osmolality 295 MOSM/KG (300-1300) Urine Random Sodium 21 MEQ/L Blood Urea Nitrogen 19 MG/DL (7-18) 22 MG/DL (7-18) Creatinine 2.46 MG/DL (0.60-1.30) 2.59 MG/DL (0.60-1.30) Random Glucose 136 MG/DL (74-106) 99 MG/DL (74-106) Calcium Level 7.8 MG/DL (8.5-10.1) 7.9 MG/DL (8.5-10.1) Sodium Level 143 MEQ/L (136-145) 136 MEQ/L (136-145) Potassium Level 3.6 MEQ/L (3.5-5.1) 3.7 MEQ/L (3.5-5.1) Chloride Level 112 MEQ/L (98-107) 105 MEQ/L (98-107) Carbon Dioxide Level 21.9 MEQ/L (21.0-32.0) 21.7 MEQ/L (21.0-32.0) Anion Gap 9 MEQ/L (5-15) 9 MEQ/L (5-15) Estimat Glomerular Filtration Rate 28 ML/MIN (>89) 26 ML/MIN (>89) Test 07/13/17 09:11 Blood Urea Nitrogen 23 MG/DL (7-18) Creatinine 2.40 MG/DL (0.60-1.30) Random Glucose 80 MG/DL (74-106) Calcium Level 8.0 MG/DL (8.5-10.1) Sodium Level 134 MEQ/L (136-145) Potassium Level 3.9 MEQ/L (3.5-5.1) Chloride Level 104 MEQ/L (98-107) Carbon Dioxide Level 22.2 MEQ/L (21.0-32.0) Anion Gap 8 MEQ/L (5-15) Estimat Glomerular Filtration Rate 29 ML/MIN (>89) Result Diagram: 07/13/17 0911 Procedures 06/30/17: EGD . Assessment and Plan Disease Oriented Problem List: (1) Gastrointestinal bleed (2) Esophageal varices (3) Tobacco abuse (4) Jaundice (5) Gastritis (6) Menendez esophagus Symptom Scale: (1) Pain (2) Dyspnea (3) Encephalopathy Pertinent Non-Medical Issues Psychosocial:Patient is originally from [facility]. He moved to [place] approximately 20 years ago. 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 Patient is but has 4 adult children from this marriage. (Abbey Donnelly, Nikko and Sergio). Apparently he also has a 14-year- old daughter from a different relationship; she lives in [place]. Spiritual: Uatsdin ariana Legal: Patient is not . He has 4 adult children (Abbey Donnelly, Nikko and Sergio). Per [place] statutes, in the absence of written advanced directives healthcare proxy decision making would fall to the majority of these 4 children. Son, Andrzej, was present at bedside. He states his siblings would not want to participate in medical decision making; he was willing to provide names and numbers so each could be given the opportunity to opt out of healthcare proxy decision-making. Messages were left for the other 3 siblings ( Abbey, Nikko, Sergio), awaiting return phone calls. Ethical issues impacting care: No known ethical issues impacting care at this time . . Important Contacts Major (HCS), son: [phone] Tea Calhoun, spouse/former spouse: [phone] Abbey, daughter [phone] Nikko, son, Sergio, son: [phone] . Prognosis Patient is a 51-year-old male with multiple comorbid conditions. He was admitted with suspected GI bleed, persistent ileus, liver cirrhosis/elevated LFTs, thrombocytopenia/coagulopathy and hepatic encephalopathy. Now being treated for pneumonia. He is not a candidate for liver transplant. He is at high risk for ongoing complications and decline. . Code Status: Full Code Plan * FULL CODE: Addressed code status with patient again today to confirm, patient endorses he would like to remain a full code and verbalizes aggressive goals. * Decision-making: Patient has waxing and waning neurological status. Suggest shared decision making with patient's son German Martin. Patient designated Major as his [facility] today. A copy of the completed HCS form placed on paper chart, copy faxed to HIM, and original copy provided to patient/son. * Symptom management - encephalopathy: CT brain 07/01 revealed no acute intracranial findings. Hyperalbuminemia/liver cirrhosis/elevated LFTs. Patient on lactulose 30mL TID, rifaximin 550mg BID. No recommendations at this time. * Symptom management - dyspnea: Oxygen saturation in the mid to high 90s on 3L nasal cannula. Duonebs 1 ampule q 2hr PRN for shortness of breath. He is currently being treated for pneumonia.No recommendations. * Symptom management- pain: Multifactorial, secondary to ileus versus SBO, liver failure. Morphine 2mg q 3hr PRN for pain ordered, last dose 07/08/17 @ 0843 , tramadol 100mg q 4 hr PRN for pain, last dose 07/10/17 @ 0952, only one dose utilized in the past 24 hours. * Palliative care will continue to follow this patient throughout his hospitalization to establish trust, assist with symptom management and clarification of medical treatment goals. . Dinora Lock Jul 13, 2017 15:27
[2017-07-13] MEDS ORDERED: AMITIZA 24 MCG PO SCH (21:00)
[2017-07-13 21:21] LABS: AUTOMATED NEUTROPHIL # 5.3 TH/MM3 (1.8-7.7); BASOPHIL # 0.1 TH/MM3 (0-0.2); EOSINOPHIL # 0.2 TH/MM3 (0-0.4); EOSINOPHIL % 2.4 % (0.0-4.0); HEMATOCRIT 29.3 % (39.0-51.0); HEMOGLOBIN 9.7 GM/DL (13.0-17.0); LYMPH % 15.5 % (9.0-44.0); LYMPHOCYTE # 1.1 TH/MM3 (1.0-4.8); MEAN CELL VOLUME 104.6 FL (80.0-100.0); MEAN CORPUSCULAR HEMOGLOBIN 34.6 PG (27.0-34.0); MEAN CORPUSCULAR HGB CONC 33.1 % (32.0-36.0); MEAN PLATELET VOLUME 9.3 FL (7.0-11.0); MONOCYTE # 0.5 TH/MM3 (0-0.9); NEUT % 74.1 % (16.0-70.0); PLATELET COUNT 110 TH/MM3 (150-450); RED CELL DISTRIBUTION WIDTH 16.3 % (11.6-17.2); WHITE BLOOD COUNT 7.1 TH/MM3 (4.0-11.0)
[2017-07-14] VITALS (8 sets, daily range): BP systolic 95–194; BP diastolic 55–93; PULSE 61–72; RESP 16–18; TEMP 97.2–98.9; O2SAT 67–99
[2017-07-14] MEDS: INSULIN NovoLIN REGULAR SUPPLEMENTAL SCALE SQ SCH ×6 (02:00→22:00)
[2017-07-14] MEDS: BETHANECHOL CHL 25 MG TAB PO SCH ×3 (06:15→21:06)
[2017-07-14] MEDS: cloNIDine HCL 0.2 MG TAB PO SCH ×5 (06:15→22:00)
[2017-07-14] MEDS: METOCLOPRAMIDE HCL 10 MG/2 ML VIAL IV PUSH SCH ×3 (06:15→21:07)
[2017-07-14] MEDS: AMOXICILLIN/CLAVULANATE K 500 MG TAB PO SCH ×3 (06:15→21:06)
[2017-07-14] MEDS: traMADol HCL 50 MG TAB PO PRN ×2 (06:24→13:45)
--- NOTE | 2017-07-14 08:07 | RADRPT ---
EXAM DATE/TIME: 07/14/2017 07:47 [place] COMPARISON: ABDOMEN KUB ONLY, July 10, 2017, 20:43. INDICATIONS : Ileus. Abdomen pain. MEDICAL HISTORY : Carcinoma, esophageal. Barretts syndrome SURGICAL HISTORY : Left eye surgery. Exploratory laporoscopy. Sinus surgery. ENCOUNTER: Initial ACUITY: 3 weeks PAIN SCORE: 10/10 LOCATION: Bilateral Abdomen. FINDINGS: The examination demonstrates moderate diffuse gaseous distention of the loops of small and large richie l. There is gas throughout the colon nearly down to the rectum. Findings would suggest adynamic ileus . No free peritoneal air is seen. There is no organomegaly. No abnormal calcifications are identified. Note is made of a Sanchez catheter. CONCLUSION: 1. Diffuse gaseous distention of the small and large bowel suggesting adynamic ileus. Franc Nelson MD on July 14, 2017 at 8:05 Board Certified Radiologist. This report was verified electronically.
[2017-07-14 08:19] LABS: ALBUMIN 2.3 GM/DL (3.4-5.0); AST (GOT) 42 U/L (15-37); BICARBONATE 21.4 MEQ/L (21.0-32.0); CALCIUM 7.8 MG/DL (8.5-10.1); CHLORIDE 103 MEQ/L (98-107); CREATININE 2.27 MG/DL (0.60-1.30); GLOMERULAR FILTRATION RATE 31 ML/MIN (>89); GLUCOSE,RANDOM 81 MG/DL (74-106); SODIUM (NA) 133 MEQ/L (136-145)
[2017-07-14 08:23] LABS: BLOOD UREA NITROGEN 24 MG/DL (7-18)
[2017-07-14 08:24] LABS: ALKALINE PHOSPHATASE 89 U/L (45-117); ALT (GPT) 11 U/L (12-78); TOTAL BILIRUBIN ADULT 1.9 MG/DL (0.2-1.0); TOTAL PROTEIN 6.9 GM/DL (6.4-8.2)
[2017-07-14] MEDS: SODIUM CHLORIDE 0.9% FLUSH 10 ML FLUSH IV FLUSH SCH ×2 (09:00→21:11)
[2017-07-14] MEDS: REMOVE OLD PATCH T-DERMAL SCH (09:00)
[2017-07-14] MEDS: POLYETHYLENE GLYCOL 17 GM PKG PO SCH (09:00)
[2017-07-14] MEDS: guaiFENesin E.R. 600 MG TAB PO SCH ×2 (09:16→21:06)
[2017-07-14] MEDS: DOCUSATE SODIUM 50 MG/SENNA 8.6 MG TAB PO SCH ×2 (09:16→21:07)
[2017-07-14] MEDS: PANTOPRAZOLE SODIUM 40 MG VIAL IV SCH ×2 (09:16→21:08)
[2017-07-14] MEDS: THIAMINE HCL 100 MG TAB PO SCH (09:16)
[2017-07-14] MEDS: NICOTINE 14 MG/24 HR PATCH T-DERMAL SCH (09:16)
[2017-07-14] MEDS: RIFAXIMIN 550 MG TAB PO SCH ×2 (10:36→21:08)
--- NOTE | 2017-07-14 10:41 | HHI.PR ---
Subjective Remarks in no acute distress. has mild generalized abdominal pain. abdomen is still distended. no nausea. afebrile. reportedly had some hallucinations earlier. d/w the RN. Objective Vitals Vital Signs Date Time Temp Pulse Resp B/P (MAP) Pulse Ox O2 Delivery O2 Flow Rate FiO2 07/14/17 08:25 97.4 67 18 106/62 (77) 97 07/14/17 04:00 97.6 67 18 110/63 (79) 99 07/14/17 00:00 97.4 69 18 100/57 (71) 99 07/13/17 21:18 99 07/13/17 20:00 97.3 70 18 111/63 (79) 99 07/13/17 16:25 97.6 73 20 108/57 (74) 96 07/13/17 15:00 69 07/13/17 12:34 98.5 69 18 101/56 (71) 94 I/O 07/13/17 07/13/17 07/13/17 07/14/17 07/14/17 07/14/17 07:00 15:00 23:00 07:00 15:00 23:00 Intake Total 720 ml 720 ml Output Total 450 ml 1200 ml 700 ml Balance -450 ml 720 ml -480 ml -700 ml Intake Oral 720 ml 720 ml Output Urine Total 450 ml 1200 ml 700 ml Result Diagram: 07/13/17202507/14/17 0640 Imaging Last Impressions Abdomen X-Ray 07/14/17 0600 Draft Impressions: Service Date/Time: Friday, July 14, 2017 07:47 - CONCLUSION: 1. Diffuse gaseous distention of the small and large bowel suggesting adynamic ileus. Franc Nelson MD Small Bowel X-Ray 07/10/17 0000 Signed Impressions: Service Date/Time: Monday, July 10, 2017 08:26 - CONCLUSION: 1. Diffuse small bowel dilatation and delayed small bowel transit time of approximately 5- 6 hours without focal transition point, intraluminal filling defect or gross mass. Findings are most consistent with moderate adynamic ileus. Bryson Downing MD Renal Ultrasound 07/10/17 0000 Signed Impressions: Service Date/Time: Monday, July 10, 2017 18:25 - CONCLUSION: 1. Unremarkable renal ultrasound. Mild ascites. Albert Walden MD Chest X-Ray 07/09/17 0600 Signed Impressions: Service Date/Time: July 06:10 - CONCLUSION: 1. Minimal basilar dependent density. Differential diagnosis includes atelectasis. Findings similar to prior exam. Albert Walden MD Chest CT 07/05/17 1635 Signed Impressions: Service Date/Time: Wednesday, July 05, 2017 18:11 - CONCLUSION: 1. Segmental consolidation with volume loss medial right lower lung. 2. Atelectasis or basilar consolidation left lower lung. 3. Mild amount of ascites. Caesar Ann MD Abdomen MRI 07/02/17 0000 Signed Impressions: Service Date/Time: June 16:34 - CONCLUSION: 1. Hepatomegaly and hepatic steatosis. No focal mass identified. 2. Moderate splenomegaly. 3. Small amount of ascites. 4. Small bilateral pleural effusions. Wilbert Howe MD Ankle X-Ray 07/01/17 0000 Signed Impressions: Service Date/Time: Saturday, July 01, 2017 10:22 - CONCLUSION: Soft tissue mass noted to be fluid filled on ultrasound 09/10/2012. Colten Nelson MD FACR Head CT 06/30/17 0000 Signed Impressions: Service Date/Time: Saturday, July 01, 2017 02:24 - CONCLUSION: 1. No acute intracranial abnormalities. Previous fixation left maxillary sinus. Albert Walden MD Cervical Spine CT 06/30/17 0000 Signed Impressions: Service Date/Time: Saturday, July 01, 2017 02:24 - CONCLUSION: Normal examination for a patient of this age. Albert Walden MD Abdomen/Pelvis CT 06/29/17 0000 Signed Impressions: Service Date/Time: Thursday, June 29, 2017 12:52 - CONCLUSION: 1. Hepatosplenomegaly and varices noted as above. 2. Atherosclerosis. 3. Abnormal diffuse heterogeneous appearance of the liver which may be related to either marked hepatic steatosis in an inhomogeneous fashion versus steatosis and underlying diffuse liver masses. An MRI of the abdomen with and without contrast may be helpful for further evaluation of this finding. Navjot Chirnios MD Objective Remarks GENERAL: looks better today. CARDIOVASCULAR: Regular rate and regular rhythm without murmurs, gallops, or rubs. RESPIRATORY: diffuse wheezing with occasional cough GASTROINTESTINAL: Abdomen soft, non-tender, distended. Normal, active bowel sounds MUSCULOSKELETAL: Extremities without clubbing, cyanosis, or edema. NEURO: awake and more alert today. Procedures 06/30/17 EGD Medications and IVs Current Medications Sodium Chloride (NS Flush) 2 ml UNSCH PRN IV FLUSH FLUSH AFTER USING IV ACCESS ; Start 06/29/17 at 11:00; Stop 06/29/17 at 15:56; Status DC Iohexol (Omnipaque 350 Inj) 92 ml STK-MED ONCE IVCONTRAST Last administered on 06/29/17 10:21; Start 06/29/17 at 10:21; Stop 06/29/17 at 13:05; Status DC Octreotide Acetate (SandoSTATIN INJ) 100 mcg ONCE ONCE IV PUSH Last administered on 06/29/17 14:31; Start 06/29/17 at 14:15; Stop 06/29/17 at 14:27 ; Status DC Pantoprazole Sodium (Protonix Inj) 80 mg ONCE ONCE IV PUSH Last administered on 06/29/17 14:31; Start 06/29/17 at 14:15; Stop 06/29/17 at 14:27; Status DC Clonidine (Catapres) 0.1 mg Q4H PRN PO SBP>160, DBP>90; Start 06/29/17 at 16:00 Sodium Chloride 1,000 ml @ 100 mls/hr Q10H IV Last administered on 06/30/17 12:00; Start 06/29/17 at 16:00; Stop 06/30/17 at 17:09; Status DC Sodium Chloride (NS Flush) 2 ml UNSCH PRN IV FLUSH FLUSH AFTER USING IV ACCESS ; Start 06/29/17 at 16:00 Sodium Chloride (NS Flush) 2 ml BID IV FLUSH Last administered on 07/14/17 09 :00; Start 06/29/17 at 21:00 Acetaminophen (Tylenol) 650 mg Q4H PRN PO TEMP > 100.4; Start 06/29/17 at 15:15 Ondansetron HCl (Zofran Inj) 4 mg Q6H PRN IVP NAUSEA OR VOMITING Last administered on 07/08/17 08:43; Start 06/29/17 at 15:15 Prochlorperazine (Compazine Supp) 25 mg Q12H PRN RECTAL NAUSEA OR VOMITING; Start 06/29/17 at 15:15 Acetaminophen (Tylenol) 650 mg Q6H PRN PO PAIN SCALE 1 TO 2 Last administered on 06/30/17 04:52; Start 06/29/17 at 15:15 Morphine Sulfate (Morphine Inj) 2 mg Q3H PRN IV PUSH Pain 3-5; if unable to take PO Last administered on 07/08/17 08:43; Start 06/29/17 at 16:00 Morphine Sulfate (Morphine Inj) 4 mg Q3H PRN IV PUSH Pain 6-10;if unable to take PO; Start 06/29/17 at 16:00 Tramadol HCl (Ultram) 50 mg Q4H PRN PO PAIN SCALE 3 TO 5 Last administered on 07/10/17 22:44; Start 06/29/17 at 16:00 Tramadol HCl (Ultram) 100 mg Q4H PRN PO PAIN SCALE 6 TO 10 Last administered on 07/14/17 06:24; Start 06/29/17 at 16:00 Naloxone HCl (Narcan Inj) 0.4 mg UNSCH PRN IV PUSH SEE LABEL COMMENTS; Start at 16:00 Senna/Docusate Sodium (Brittany-Colace) 1 tab BID PO Last administered on 09:16; Start 06/29/17 at 21:00 Magnesium Hydroxide (Milk Of Magnesia Liq) 30 ml Q12H PRN PO MILD - MODERATE CONSTIPATION; Start 06/29/17 at 15:15 Sennosides (Senokot) 17.2 mg Q12H PRN PO MODERATE - SEVERE CONSTIPATION; Start 06/29/17 at 15:15 Bisacodyl (Dulcolax Supp) 10 mg DAILY PRN RECTAL SEVERE CONSITIPATION; Start at 15:15 Lactulose (Lactulose Liq) 30 ml DAILY PRN PO SEVERE CONSITIPATION; Start at 15:15; Status Future Hold Flumazenil (Romazicon Inj) 0.2 mg Q1M PRN IV PUSH SEE LABEL COMMENTS; Start at 16:00; Stop 07/10/17 at 11:28; Status DC Lorazepam (Ativan) 1 mg Q4H PRN PO [facility] 8 - 10 Last administered on 06/30/17 09:32; Start 06/29/17 at 16:00; Stop 07/10/17 at 11:28; Status DC Lorazepam (Ativan Inj) 1 mg Q4H PRN IV PUSH [facility] 8 - 10 Last administered on 10:17; Start 06/29/17 at 16:00; Stop 07/10/17 at 11:28; Status DC Lorazepam (Ativan) 2 mg Q2H PRN PO CIWA 11-14; Start 06/29/17 at 16:00; Stop 07/10/17 at 11:28; Status DC Lorazepam (Ativan Inj) 2 mg Q2H PRN IV PUSH CIWA 11-14 Last administered on 19:33; Start 06/29/17 at 16:00; Stop 07/10/17 at 11:28; Status DC Lorazepam (Ativan Inj) 2 mg Q1H PRN IV PUSH CIWA 15-20; Start 06/29/17 at 16:00 ; Stop 07/10/17 at 11:28; Status DC Lorazepam (Ativan Inj) 2 mg Q15M PRN IV PUSH CIWA > 20 Last administered on 02:48; Start 06/29/17 at 16:00; Stop 07/10/17 at 11:28; Status DC Haloperidol Lactate (Haldol Inj) 2 mg Q15M PRN IM SEE LABEL COMMENTS Last administered on 07/06/17 01:12; Start 06/29/17 at 16:00; Stop 07/10/17 at 11:28 ; Status DC Sodium Chloride (NS Flush) 2 ml UNSCH PRN IV FLUSH FLUSH AFTER USING IV ACCESS ; Start 06/29/17 at 15:15; Status UNV Sodium Chloride (NS Flush) 2 ml BID IV FLUSH ; Start 06/29/17 at 21:00; Status UNV Folic Acid (Folate) 1 mg DAILY PO Last administered on 07/04/17 10:08; Start 06/29/17 at 16:00; Stop 07/04/17 at 15:59; Status DC Thiamine HCl (Vitamin B1) 100 mg DAILY PO Last administered on 07/14/17 09:16 ; Start 06/29/17 at 16:00; Status Future hold Multivitamins/ Minerals Therapeutic (Theragran M Tab) 1 tab DAILY PO Last administered on 07/04/17 10:08; Start 06/29/17 at 16:00; Stop 07/04/17 at 15:59 ; Status DC Clonidine (Catapres) 0.1 mg Q6H PRN PO SEE LABEL COMMENTS; Start 06/29/17 at 16 :00 Sodium Chloride (NS Flush) 2 ml UNSCH PRN IV FLUSH FLUSH AFTER USING IV ACCESS ; Start 06/29/17 at 15:15; Status UNV Sodium Chloride (NS Flush) 2 ml BID IV FLUSH ; Start 06/29/17 at 21:00; Status UNV Pantoprazole Sodium (Protonix Inj) 40 mg BID IV Last administered on 09:16; Start 06/29/17 at 21:00 Albuterol/ Ipratropium (Duoneb Neb) 1 ampule Q4HR NEB PRN NEB sob; Start at 15:30; Stop 07/01/17 at 07:05; Status DC Guaifenesin (Mucinex Er) 600 mg BID PO Last administered on 07/14/17 09:16; Start 06/29/17 at 21:00 Nicotine (Habitrol 14 Mg Patch.24 Hr) 1 patch ONCE ONCE T-DERMAL Last administered on 06/29/17 18:04; Start 06/29/17 at 16:00; Stop 06/29/17 at 16:01 ; Status DC Nicotine (Habitrol 14 Mg Patch.24 Hr) 1 patch DAILY T-DERMAL Last administered on 07/14/17 09:16; Start 06/30/17 at 09:00 Miscellaneous Information 1 DAILY T-DERMAL Last administered on 07/14/17 09: 00; Start 06/30/17 at 09:00 Rifaximin (Xifaxan) 550 mg BID PO Last administered on 07/13/17 21:00; Start 06/30/17 at 11:45 Lactulose (Lactulose Liq) 30 ml BID PO Last administered on 07/06/17 09:02; Start 06/30/17 at 21:00; Stop 07/06/17 at 15:21; Status DC Miscellaneous Information ALL NURSING DEPARTME... UNSCH PRN .XX SEE LABEL COMMENTS; Start 06/30/17 at 12:56; Stop 07/01/17 at 12:55; Status DC Chlordiazepoxide (Librium) 50 mg Q6H PO Last administered on 07/04/17 10:08; Start 06/30/17 at 16:00; Stop 07/04/17 at 16:15; Status DC Dexmedetomidine HCl 200 mcg/ Sodium Chloride 50 ml @ 4.86 mls/hr TITRATE PRN IV Desired RASS; Start 06/30/17 at 16:00; Stop 06/30/17 at 16:25; Status DC Dexmedetomidine HCl 1000 mcg/ Sodium Chloride 250 ml @ 4.86 mls/hr TITRATE PRN IV Desired RASS Last administered on 07/01/17 09:03; Start 06/30/17 at 16: 30; Stop 07/03/17 at 09:48; Status DC Dextrose/Sodium Chloride 1,000 ml @ 84 mls/hr [id number] IV Last administered on 07/03/17 04:36; Start 06/30/17 at 17:15; Stop 07/03/17 at 09:48; Status DC Dextrose (D50w (Vial) Inj) 50 ml UNSCH PRN IV PUSH HYPOGLYCEMIA-SEE COMMENTS; Start 06/30/17 at 17:15 Glucagon (Glucagon Inj) 1 mg UNSCH PRN OTHER HYPOGLYCEMIA-SEE COMMENTS; Start 06/30/17 at 17:15 Insulin Human Regular (NovoLIN R SUPPLEMENTAL SCALE) 1 Q4H SQ ; Start 06/30/17 at 18:00 Albuterol/ Ipratropium (Duoneb Neb) 1 ampule Q2HR NEB PRN NEB sob Last administered on 07/03/17 23:32; Start 07/01/17 at 07:15; Stop 07/04/17 at 16:21 ; Status DC Thiamine HCl 100 mg/Sodium Chloride 101 ml @ 101 mls/hr DAILY IV Last administered on 07/03/17 09:12; Start 07/01/17 at 09:00; Stop 07/04/17 at 08:59 ; Status DC Albuterol/ Ipratropium (Duoneb Neb) 1 ampule Q6HR NEB NEB Last administered on 07/04/17 09:47; Start 07/01/17 at 10:00; Stop 07/04/17 at 14:52; Status DC Potassium Chloride (KCl) 80 meq ONCE ONCE PO Last administered on 07/01/17 09 :00; Start 07/01/17 at 07:15; Stop 07/01/17 at 07:37; Status DC Potassium Chloride 100 ml @ 50 mls/hr Q2H PRN IV For Potassium 2.8 - 3.2 mEq/L ; Start 07/01/17 at 09:30; Stop 07/08/17 at 08:16; Status DC Potassium Chloride 100 ml @ 50 mls/hr Q2H PRN IV For Potassium 2.8 - 3.2 mEq/ L Last administered on 07/08/17 06:53; Start 07/01/17 at 09:30; Stop 07/08/17 at 08:16; Status DC Potassium Bicarb/ Potassium Chloride (K-Lyte Cl Eff) 50 meq UNSCH PRN PO For Potassium 3.3 - 3.5 mEq/L Last administered on 07/01/17 17:53; Start 07/01/17 at 09:30 Potassium Chloride 100 ml @ 25 mls/hr UNSCH PRN IV For Potassium 3.3 - 3.5 mEq /L; Start 07/01/17 at 09:30; Stop 07/08/17 at 08:16; Status DC Potassium Chloride 100 ml @ 50 mls/hr Q2H PRN IV For Potassium 3.3 - 3.5 mEq/ L Last administered on 07/04/17 18:26; Start 07/01/17 at 09:30; Stop 07/08/17 at 08:16; Status DC Magnesium Sulfate 4 gm/Sodium Chloride 100 ml @ 50 mls/hr UNSCH PRN IV For Magnesium 0.9 - 1.1 mg/dL; Start 07/01/17 at 09:30; Stop 07/08/17 at 08:16; Status DC Magnesium Oxide (Mag-Ox) 800 mg UNSCH PRN PO For Magnesium 1.2 - 1.6 mg/dL; Start 07/01/17 at 09:30; Stop 07/08/17 at 08:16; Status DC Magnesium Sulfate 2 gm/Sodium Chloride 100 ml @ 50 mls/hr UNSCH PRN IV For Magnesium 1.2 - 1.6 mg/dL; Start 07/01/17 at 09:30; Stop 07/08/17 at 08:16; Status DC Potassium Phosphate (K-Phos) 2,000 mg Q4H PRN PO For Phosphorus < 2.5 mg/dL; Start 07/01/17 at 09:30; Stop 07/08/17 at 08:16; Status DC Sodium Phosphate 30 mmol/Sodium Chloride 250 ml @ 42 mls/hr UNSCH PRN IV For Phosphorus < 2.5 mg/dL; Start 07/01/17 at 09:30; Stop 07/08/17 at 08:16; Status DC Potassium Phosphate (K-Phos) 2,000 mg UNSCH PRN PO/TUBE SEE LABEL COMMENTS; Start 07/01/17 at 09:30; Stop 07/08/17 at 08:16; Status DC Potassium Phosphate 30 mmol/ Sodium Chloride 260 ml @ 42 mls/hr UNSCH PRN IV SEE LABEL COMMENTS; Start 07/01/17 at 09:30; Stop 07/08/17 at 08:16; Status DC Lidocaine HCl (Xylocaine-Mpf 1% Inj) 5 ml STK-MED ONCE OTHER ; Start 06/30/17 at 12:00; Stop 07/01/17 at 15:24; Status DC Propofol (Diprivan 200 Mg/20 ml Inj) 400 mg STK-MED ONCE IV ; Start 06/30/17 at 12:00; Stop 07/01/17 at 15:24; Status DC Metoclopramide HCl (Reglan Inj) 10 mg Q8HR IV PUSH Last administered on 06:15; Start 07/02/17 at 09:00 Polyethylene Glycol (Miralax) 17 gm DAILY PO Last administered on 07/13/17 10: 17; Start 07/02/17 at 09:00 Gadodiamide (Omniscan Pf Inj) 19 ml STK-MED ONCE IVCONTRAST Last administered on 07/02/17 17:13; Start 07/02/17 at 17:13; Stop 07/02/17 at 17:14; Status DC Sodium Biphosphate/ Sodium Phosphate (Fleets Enema (Adult)) 133 ml ONCE ONCE RECTAL Last administered on 07/03/17 17:23; Start 07/03/17 at 17:00; Stop at 17:01; Status DC Furosemide (Lasix Inj) 40 mg NOW ONCE IV PUSH Last administered on 07/03/17 19:20; Start 07/03/17 at 19:15; Stop 07/03/17 at 19:16; Status DC Dexmedetomidine HCl 200 mcg/ Sodium Chloride 52 ml @ 5 mls/hr TITRATE PRN IV SEDATION Last administered on 07/04/17 05:45; Start 07/03/17 at 22:00; Stop at 16:18; Status DC Acetylcysteine (Mucomyst 10% Neb) 2 ml Q6HR NEB NEB Last administered on 07:44; Start 07/04/17 at 04:00; Stop 07/05/17 at 14:10; Status DC Vancomycin HCl 1000 mg/Sodium Chloride 250 ml @ 250 mls/hr ONCE ONCE IV ; Start 07/04/17 at 08:30; Stop 07/04/17 at 09:29; Status UNV Pharmacy Profile Note 0 ml @ 0 mls/hr UNSCH OTHER ; Start 07/04/17 at 08:30; Stop 07/09/17 at 11:30; Status DC Piperacillin Sod/ Tazobactam Sod 50 ml @ 100 mls/hr Q8H IV Last administered on 07/09/17 09:36; Start 07/04/17 at 09:00; Stop 07/09/17 at 11:35; Status DC Sodium Chloride 1,000 ml @ 60 mls/hr [id number] IV Last administered on 10:06; Start 07/04/17 at 08:30; Stop 07/04/17 at 16:18; Status DC Vancomycin HCl 1700 mg/Sodium Chloride 517 ml @ 250 mls/hr Q12H IV Last administered on 07/05/17 23:08; Start 07/04/17 at 11:00; Stop 07/06/17 at 11:38 ; Status DC Miscellaneous Information SPECIFIC LAB TO BE DRAWN:VANCOMY... ONCE ONCE .XX ; Start 07/05/17 at 22:45; Stop 07/05/17 at 22:46; Status DC Metronidazole 100 ml @ 100 mls/hr Q8H IV Last administered on 07/09/17 07:15 ; Start 07/04/17 at 16:00; Stop 07/09/17 at 11:35; Status DC Albuterol/ Ipratropium (Duoneb Neb) 1 ampule Q6HR WHILE AWAKE NEB NEB Last administered on 07/04/17 15:21; Start 07/04/17 at 20:00; Stop 07/04/17 at 20:00 ; Status DC Furosemide (Lasix Inj) 40 mg ONCE ONCE IV PUSH Last administered on 07/04/17 15:36; Start 07/04/17 at 15:30; Stop 07/04/17 at 15:31; Status DC Furosemide (Lasix Inj) 40 mg STK-MED ONCE .ROUTE ; Start 07/04/17 at 15:19; Stop 07/04/17 at 15:20; Status DC Diltiazem HCl (Cardizem Inj) 10 mg ONCE ONCE IV Last administered on 16:07; Start 07/04/17 at 16:00; Stop 07/04/17 at 16:02; Status DC Diltiazem HCl (Cardizem Inj) 25 mg STK-MED ONCE .ROUTE ; Start 07/04/17 at 16:00 ; Stop 07/04/17 at 16:01; Status DC Chlordiazepoxide (Librium) 25 mg Q12H PO Last administered on 07/06/17 02:31; Start 07/05/17 at 04:00; Stop 07/06/17 at 10:08; Status DC Albuterol/ Ipratropium (Duoneb Neb) 1 ampule Q4HR NEB NEB ; Start 07/04/17 at 20:00; Stop 07/05/17 at 06:22; Status DC Albuterol/ Ipratropium (Duoneb Neb) 1 ampule Q2HR NEB PRN NEB SHORTNESS OF BREATH Last administered on 07/12/17 09:49; Start 07/04/17 at 16:15 Clonidine (Catapres) 0.2 mg Q8HR PO Last administered on 07/14/17 06:15; Start 07/04/17 at 22:00 Diltiazem HCl (Cardizem Inj) 10 mg ONCE ONCE IV Last administered on 16:22; Start 07/04/17 at 16:15; Stop 07/04/17 at 16:20; Status DC Albuterol/ Ipratropium (Duoneb Neb) 1 ampule Q6HR WHILE AWAKE NEB NEB Last administered on 07/08/17 08:59; Start 07/04/17 at 20:00; Stop 07/08/17 at 19:59 ; Status DC Bumetanide (Bumex Inj) 1 mg ONCE ONCE IV PUSH Last administered on 07/05/17 12:35; Start 07/05/17 at 11:30; Stop 07/05/17 at 11:31; Status DC Chlordiazepoxide (Librium) 25 mg DAILY PO Last administered on 07/07/17 08:21 ; Start 07/07/17 at 09:00; Stop 07/08/17 at 08:16; Status DC Vancomycin HCl 2000 mg/Sodium Chloride 520 ml @ 257.5 mls/ hr Q12H IV Last administered on 07/09/17 03:43; Start 07/06/17 at 13:00; Stop 07/09/17 at 11:30 ; Status DC Miscellaneous Information SPECIFIC LAB TO BE IGNACIO... ONCE ONCE .XX Last administered on 07/08/17 12:45; Start 07/08/17 at 12:45; Stop 07/08/17 at 12:46 ; Status DC Lactulose (Lactulose Liq) 30 ml TID PO Last administered on 07/10/17 18:21; Start 07/06/17 at 18:00; Status Future Hold Chlordiazepoxide (Librium) 20 mg DAILY PO Last administered on 07/10/17 09:48 ; Start 07/08/17 at 09:00; Stop 07/10/17 at 11:30; Status DC Miscellaneous Information SPECIFIC LAB TO BE DRAWN:VANCOMYCIN TROUGH DATE TO... ONCE ONCE .XX ; Start 07/09/17 at 12:45; Stop 07/09/17 at 12:46; Status Cancel Amoxicillin/ Clavulanate Potassium (Augmentin) 500 mg Q8HR PO Last administered on 07/14/17 06:15; Start 07/09/17 at 14:00 Albuterol/ Ipratropium (Duoneb Neb) 1 ampule Q4HR NEB NEB Last administered on 07/10/17 05:42; Start 07/09/17 at 12:00; Stop 07/10/17 at 12:08; Status DC Methylnaltrexone [place] (Relistor Inj) 12 mg ONCE ONCE SQ Last administered on 07/09/17 13:41; Start 07/09/17 at 12:45; Stop 07/09/17 at 12:52; Status DC Diatrizoate Meglum/ Diatrizoate Sod ( Gastroview Liq) 120 ml STK-MED ONCE PO Last administered on 07/10/17 09:30; Start 07/10/17 at 09:30; Stop 07/10/17 at 11:06; Status DC Diatrizoate Meglum/ Diatrizoate Sod ( Gastroview Liq) 120 ml STK-MED ONCE PO Last administered on 07/10/17 10:40; Start 07/10/17 at 10:40; Stop 07/10/17 at 11:14; Status DC Chlordiazepoxide (Librium) 15 mg ONCE ONCE PO Last administered on 07/11/17 09:37; Start 07/11/17 at 09:00; Stop 07/11/17 at 09:01; Status DC Lorazepam (Ativan) 0.5 mg Q6HR PRN PO ANXIETY; Start 07/10/17 at 12:00 Potassium Chloride (KCl) 20 meq ONCE ONCE PO Last administered on 07/10/17 14 :35; Start 07/10/17 at 13:00; Stop 07/10/17 at 13:01; Status DC Bethanechol Chloride (Urecholine) 25 mg Q8HR PO Last administered on 06:15; Start 07/13/17 at 14:00 Patient Own Medication PT OWN MED: JAKE... 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 Patient with history of right zygomatic/maxillary sinus surgery 2015 CT C-spine 07/01 negative findings Tramadol 50-100 mg every 4 hours as needed pain Atherosclerotic vascular disease Dyslipidemia Hypertension Monitor HR and BP On Clonidine 0.2mg Q8 for BP control Possible Aspiration pneumonia Tobaccoism History of asthma/reactive airway disease Continue with oxygen keep sat> 92% continue neb treatments. switched to po Augmentin. Pulmonary is following-Dr. Horan acute kidney injury non-oliguric- will monitor the renal function closely. renal sonogram with no acute abnormality. nephrology following. History esophageal cancer? Menendez's esophagus Gastroesophageal reflux disease Gout Gastritis/duodenitis Splenomegaly ileus CT abdomen/pelvis revealed splenomegaly 19.3 cm. varices at the esophageal hiatus, gastric ligament and left upper quadrant. Renal splenic shunt appreciated. MRI abdomen showed Hepatomegaly and hepatic steatosis. No focal mass identified. Moderate splenomegaly. Small amount of ascites.Small bilateral pleural effusions. Liver workup including JOSE, ASMA, Hep profile all negative. on full liquid diet EGD 06/30 by GI revealed mild gastritis, duodenitis. Likely esophagitis/Menendez' s not biopsied. Pantoprazole 40 mg IV daily for GI prophylaxis continue Lactulose and Xifaxan . trial of bethanechol. GI following. Elevated TSH 6.7. History of gout Sliding-scale insulin Novulin R every 4 hrs for maintain euglycemia hypokalemia replaced. Macrocytic anemia Thrombocytopenia chronic likely secondary to underlying EtOH /cirrhotic liver disease-(improving) Monitor CBC/coags No signs of hemolysis/consumption thrombocytopenia. This appears to be a chronic condition Right ankle pain X-ray right ankle rule out fracture-Soft tissue mass noted to be fluid filled on ultrasound 09/10/2012. No acute fracture PT evaluate and treat Prophylaxis - GI - pantoprazole - DVT - SCD/holding pharmacological prophylaxis in light of thrombocytopenia palliative care evaluation appreciated. previously d/w the patient regarding the code status and he wants to stay on full-code status. Discharge Planning still with persistent ileus/ abdominal distention. not ready for discharge. Tyson Boyd MD Jul 14, 2017 10:41
[2017-07-14 12:25] LABS: AUTOMATED NEUTROPHIL # 5.9 TH/MM3 (1.8-7.7); BASOPHIL # 0.1 TH/MM3 (0-0.2); BASOPHIL % 1.2 % (0.0-2.0); EOSINOPHIL # 0.2 TH/MM3 (0-0.4); EOSINOPHIL % 2.7 % (0.0-4.0); HEMATOCRIT 31.2 % (39.0-51.0); HEMOGLOBIN 10.3 GM/DL (13.0-17.0); LYMPH % 16.9 % (9.0-44.0); LYMPHOCYTE # 1.4 TH/MM3 (1.0-4.8); MEAN CELL VOLUME 104.9 FL (80.0-100.0); MEAN CORPUSCULAR HEMOGLOBIN 34.8 PG (27.0-34.0); MEAN CORPUSCULAR HGB CONC 33.1 % (32.0-36.0); MONO % 7.5 % (0.0-8.0); MONOCYTE # 0.6 TH/MM3 (0-0.9); NEUT % 71.7 % (16.0-70.0); PLATELET COUNT 125 TH/MM3 (150-450); RED BLOOD COUNT 2.98 MIL/MM3 (4.50-5.90); RED CELL DISTRIBUTION WIDTH 16.8 % (11.6-17.2); WHITE BLOOD COUNT 8.3 TH/MM3 (4.0-11.0)
--- NOTE | 2017-07-14 16:03 | HHI.GIFU ---
Subjective Remarks Resting in bed. No n/v. Tolerating diet. Continues to have abdominal distention. Rectal tube in place with small amount of liquid stool. (Yoli Koenig) Objective Vitals I&O Vital Signs Date Time Temp Pulse Resp B/P (MAP) Pulse Ox O2 Delivery O2 Flow Rate FiO2 07/14/17 12:42 97.7 62 16 97/55 (69) 97 07/14/17 08:25 97.4 67 18 106/62 (77) 97 07/14/17 04:00 97.6 67 18 110/63 (79) 99 07/14/17 00:00 97.4 69 18 100/57 (71) 99 07/13/17 21:18 99 07/13/17 20:00 97.3 70 18 111/63 (79) 99 07/13/17 16:25 97.6 73 20 108/57 (74) 96 I/O 07/13/17 07/13/17 07/13/17 07/14/17 07/14/17 07/14/17 07:00 15:00 23:00 07:00 15:00 23:00 Intake Total 720 ml 720 ml Output Total 450 ml 1200 ml 700 ml Balance -450 ml 720 ml -480 ml -700 ml Intake Oral 720 ml 720 ml Output Urine Total 450 ml 1200 ml 700 ml Laboratory Laboratory Tests Test 07/13/17 20:26 07/14/17 06:40 07/14/17 11:10 White Blood Count 7.1 8.3 Red Blood Count 2.80 2.98 Hemoglobin 9.7 10.3 Hematocrit 29.3 31.2 Mean Corpuscular Volume 104.6 104.9 Mean Corpuscular Hemoglobin 34.6 34.8 Mean Corpuscular Hemoglobin Concent 33.1 33.1 Red Cell Distribution Width 16.3 16.8 Platelet Count 110 125 Mean Platelet Volume 9.3 10.0 Neutrophils (%) (Auto) 74.1 71.7 Lymphocytes (%) (Auto) 15.5 16.9 Monocytes (%) (Auto) 7.0 7.5 Eosinophils (%) (Auto) 2.4 2.7 Basophils (%) (Auto) 1.0 1.2 Neutrophils # (Auto) 5.3 5.9 Lymphocytes # (Auto) 1.1 1.4 Monocytes # (Auto) 0.5 0.6 Eosinophils # (Auto) 0.2 0.2 Basophils # (Auto) 0.1 0.1 CBC Comment DIFF FINAL DIFF FINAL Differential Comment Blood Urea Nitrogen 24 Creatinine 2.27 Random Glucose 81 Total Protein 6.9 Albumin 2.3 Calcium Level 7.8 Alkaline Phosphatase 89 Aspartate Amino Transf (AST/SGOT) 42 Alanine Aminotransferase (ALT/SGPT) 11 Total Bilirubin 1.9 Sodium Level 133 Potassium Level 4.3 Chloride Level 103 Carbon Dioxide Level 21.4 Anion Gap 9 Estimat Glomerular Filtration Rate 31 Date/Time Source Procedure Growth Status 07/04/17 13:00 Blood Peripheral Aerobic Blood Culture - Final NO GROWTH IN 5 DAYS Complete 07/04/17 13:00 Blood Peripheral Anaerobic Blood Culture - Final NO GROWTH IN 5 DAYS Complete 07/04/17 10:00 Sputum Expectorated Sputum Gram Stain - Final Complete 07/04/17 10:00 Sputum Expectorated Sputum Sputum Culture - Final HEAVY GROWTH NORMAL RESPIRATORY BRENNAN Complete 07/09/17 12:38 Urine Catheterized Urine Urine Culture - Final NO GROWTH IN 48 HOURS. Complete Imaging Last Impressions Abdomen X-Ray 07/14/17 0600 Signed Impressions: Service Date/Time: Friday, July 14, 2017 07:47 - CONCLUSION: 1. Diffuse gaseous distention of the small and large bowel suggesting adynamic ileus. Franc Nelson MD Small Bowel X-Ray 07/10/17 0000 Signed Impressions: Service Date/Time: Monday, July 10, 2017 08:26 - CONCLUSION: 1. Diffuse small bowel dilatation and delayed small bowel transit time of approximately 5- 6 hours without focal transition point, intraluminal filling defect or gross mass. Findings are most consistent with moderate adynamic ileus. Bryson Downing MD Renal Ultrasound 07/10/17 0000 Signed Impressions: Service Date/Time: Monday, July 10, 2017 18:25 - CONCLUSION: 1. Unremarkable renal ultrasound. Mild ascites. Albert Walden MD Chest X-Ray 07/09/17 0600 Signed Impressions: Service Date/Time: July 06:10 - CONCLUSION: 1. Minimal basilar dependent density. Differential diagnosis includes atelectasis. Findings similar to prior exam. Albert Walden MD Chest CT 07/05/17 6905 Signed Impressions: Service Date/Time: Wednesday, July 05, 2017 18:11 - CONCLUSION: 1. Segmental consolidation with volume loss medial right lower lung. 2. Atelectasis or basilar consolidation left lower lung. 3. Mild amount of ascites. Caesar Ann MD Abdomen MRI 07/02/17 0000 Signed Impressions: Service Date/Time: June 16:34 - CONCLUSION: 1. Hepatomegaly and hepatic steatosis. No focal mass identified. 2. Moderate splenomegaly. 3. Small amount of ascites. 4. Small bilateral pleural effusions. Wilbert Howe MD Ankle X-Ray 07/01/17 0000 Signed Impressions: Service Date/Time: Saturday, July 01, 2017 10:22 - CONCLUSION: Soft tissue mass noted to be fluid filled on ultrasound 09/10/2012. Colten Nelson MD FACR Head CT 06/30/17 0000 Signed Impressions: Service Date/Time: Saturday, July 01, 2017 02:24 - CONCLUSION: 1. No acute intracranial abnormalities. Previous fixation left maxillary sinus. Albert Walden MD Cervical Spine CT 06/30/17 0000 Signed Impressions: Service Date/Time: Saturday, July 01, 2017 02:24 - CONCLUSION: Normal examination for a patient of this age. Albert Walden MD Abdomen/Pelvis CT 06/29/17 0000 Signed Impressions: Service Date/Time: Thursday, June 29, 2017 12:52 - CONCLUSION: 1. Hepatosplenomegaly and varices noted as above. 2. Atherosclerosis. 3. Abnormal diffuse heterogeneous appearance of the liver which may be related to either marked hepatic steatosis in an inhomogeneous fashion versus steatosis and underlying diffuse liver masses. An MRI of the abdomen with and without contrast may be helpful for further evaluation of this finding. Navjot Chirinos MD Physical Exam HEENT: Normocephalic; atraumatic; + jaundice. CHEST: Resp. even/shallow, diminished CARDIAC: RRR ABDOMEN: Abdomen tympanic, distended, mild diffuse tenderness; bowel sounds are hypoactive. Rectal tube in place with liquid brown stool. EXTREMITIES: No clubbing, cyanosis, or edema. SKIN: + jaundice. SUPERVISOR INTERMEDIATES: Lethargic, Confused. (Yoli Koenig) Assessment and Plan Plan ASSESSMENT: - Persistent ileus. CT scan abdomen and pelvis (06/29/17)----> Hepatosplenomegaly and varices noted as above. Atherosclerosis. Abnormal diffuse heterogeneous appearance of the liver which may be related to either marked hepatic steatosis in an inhomogeneous fashion versus steatosis and underlying diffuse liver masses. An MRI of the abdomen with and without contrast may be helpful for further evaluation of this finding. Pt states this pain began after a hernia repair in July of 2016 and is intermittent at times, but usually more constant. S/P Fleets enema. KUB (07/07/17)---> No significant change mild to moderate bowel distention. S/P SBFT (07/10/17)---> Diffuse small bowel dilatation and delayed small bowel transit time of approximately 5-6 hours without focal transition point, intraluminal filling defect or gross mass. Findings are most consistent with moderate adynamic ileus. Nurse reports that he put out 2,000cc of liquid stool today. S/P Relistor (07/09). Reglan, Miralax. Lactulose is on hold. Pt with persistent distention. KUB ( 07/14/17)---> Diffuse gaseous distention of the small and large bowel suggesting adynamic ileus. Reglan, Miralax, Bethanechol, Amitiza was ordered, but not available. Still with persistent large and small bowel ileus- will d/c rectal tube and give enemas. Golytely 1/2 gallon. - Questionable upper GI bleeding. Pt presented to ER with nausea/vomiting with dark emesis and occasional red blood and intermittent dark stools. Not actively bleeding. Of note, does report that he has had nose bleeds x 2 days. However, he does have evidence of liver cirrhosis and varcies on CT imaging. EGD/Colonoscopy (12/24/15)---> There was a 5 cm segment of suspected Menendez's esophagus found in the distal esophagus, multiple biopsies were performed, there was erythematous gastritis in the entire examined stomach; multiple biopsies were performed, normal duodenal mucosa in the bulb and second portion of the duodenum, retroflexion was performed and was normal; the colon mucosa was otherwise normal, retroflexed views revealed no abnormalities. Pathology with gastric antral mucosal biopsies with histopathologic features consistent with chemical gastropathy, as may bee seen with bile reflux, non-steroidal anti-inflammatory drugs or other drug induced disease negative for intestinal metaplasia and dysplasia, farhat stain negative for helicobacter. GE mucosal biopsies with chronic inflammatory gastric changes consistent with reflux exhibiting extensive intestinal metaplasia, negative for dysplasia. 1. 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 Gastropathy and mild gastritis 3. Moderate duodenitis 4. No active bleeding and no sign of old bleeding 5. Retroflexed views revealed no abnormalities PPI. No active bleeding. HH stable at 10.3/31.2. - Liver cirrhosis/Elevated LFTs. Pt reports that he has been told that his liver was enlarged, but never told that he had liver cirrhosis. He continues to drink ETOH, stating [address] has findings of varcies, he has thrombocytopenia, coagulopathy, hypoalbuminemia, all of which support a dx of liver cirrhosis. MRI (07/02/17)---> hepatomegaly and hepatic steatosis, no focal mass identified. Moderate splenomegaly, small amount of of ascites. Small bilateral pleural effusion. Will check liver workup to r/o other underlying liver disease- JOSE negative, AMA <20.0, ASMA negative, AFP 4.6. ALpha 1 Antitrypsin 221, Ceruloplasmin 37, Ferritin 94, Iron saturation 14.0%. Hepatitis profile neg. This is likely related to ETOH. DF 6.0. MELD 13. - Diarrhea- Negative for C-diff. - Menendez's Esophagus, GERD. Takes ranitidine as needed at home, has daily symptoms. EGD as above. PPI - Thrombocytopenia, Coagulopathy. Likely related to cirrhosis. - Anemia, macrocytic. HH stable, Folate 17.2, B12 1711. - Hepatic encephalopathy, Ammonia 66. Lactulose on hold for worsening distention. Getting Xifaxan. Still very lethargic, confused, but does arouse and follows commands once awake. - ETOH abuse. DT precautions per attending. - DON, worsening renal function. Creat 2.27. Renal following, most likely has ATN causing DON. - Resp. Insufficiency/Asthma, per attending. - Depression, Hyperlipidemia. Per attending. PLAN: - Full liquids - D/C rectal tube - SSE x 2 - Golytely 1/2 gallon po x 1 - Cont. Reglan - Cont. Miralax - Cont. Protonix - Cont. Xifaxan - Cont. Bethanechol - Amitiza not available. - Monitor labs - Supportive care - Further recommendations to follow based on results of above - PT seen and examined by Dr. Cowan and myself and this note is written on his behalf (Yoli Koenig) Physician Comments Seen and examined with GIOVANNA, still with abdominal distension. DC rectal tube. Soap suds enemas x 2 today and golytle by mouth. (Tanya Cowan MD) Yoli Koenig Jul 14, 2017 16:03 Tanya Cowan MD Jul 14, 2017 17:14
--- NOTE | 2017-07-14 16:03 | HHI.NPPN ---
Subjective History of Present Illness 51-year-old male with a past medical history of cirrhosis of the liver, bronchial asthma, depression, hyperlipidemia, pancreatitis, Menendez's esophagus, chronic abdominal pain, possible history of gastric ulcer and varices, questionable esophageal cancer who was admitted with abdominal pain and distension. I was called to see the patient because of elevated BUN and creatinine. Additional Remarks Patient is alert, no SOB, started eating. Review of Systems General Constitutional: Fatigue Respiratory Lungs: Wheeze Cardiovascular Cardiac: CORTES Gastrointestinal Gastrointestinal: Abdominal Pain Objective Data Data Vital Signs Date Time Temp Pulse Resp B/P (MAP) Pulse Ox O2 Delivery O2 Flow Rate FiO2 07/14/17 12:42 97.7 62 16 97/55 (69) 97 07/14/17 08:25 97.4 67 18 106/62 (77) 97 07/14/17 04:00 97.6 67 18 110/63 (79) 99 07/14/17 00:00 97.4 69 18 100/57 (71) 99 07/13/17 21:18 99 07/13/17 20:00 97.3 70 18 111/63 (79) 99 07/13/17 16:25 97.6 73 20 108/57 (74) 96 -: 07/14/17 1110 07/14/17 0640 Physical Exam General Appearance: No Acute Distress, Anxious Throat Throat Exam: Oral Mucosa [place] & Moist Neck Neck Exam: Neck Supple Pulmonary Resp Exam: Breath Sounds Equal, Rhonchi, Decreased Bases Cardiology CV Exam: Regular, Normal Sinus Rhythm Gastrointestinal/Abdomen GI Exam: Soft, Non-Tender, Distended Extremeties Extremities Exam: Trace Edema Neurologic Neuro Exam: Alert, Awake, Oriented Assessment/Plan Assessment Summary: DON/Acute Renal Failure Problem List: (1) Acute kidney injury ICD Codes: N17.9 - Acute kidney failure, unspecified (2) Encephalopathy ICD Codes: G93.40 - Encephalopathy, unspecified (3) Anemia ICD Codes: D64.9 - Anemia, unspecified Status: Acute (4) Jaundice ICD Codes: R17 - Unspecified jaundice (5) Gastritis ICD Codes: K29.70 - Gastritis, unspecified, without bleeding Status: Acute (6) 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 Normal size kidneys and has Normal Na. in the urine. Urine Eosinophils is negative. Most likely has ATN causing DON. Has elevated Bilirubin. BP is stable, Creatinine is slightly better, 2.2. Follow the urine out put and BMP. Linette Guerra MD Jul 14, 2017 16:03
[2017-07-14] MEDS ORDERED: PEG (High)/E-LYTE SOLN 4000 ML BTL PO ONE (17:00)
[2017-07-15] VITALS (8 sets, daily range): BP systolic 89–117; BP diastolic 53–78; PULSE 64–75; RESP 16–20; TEMP 97.3–98.1; O2SAT 94–99
[2017-07-15] MEDS: INSULIN NovoLIN REGULAR SUPPLEMENTAL SCALE SQ SCH ×6 (02:00→22:00)
[2017-07-15] MEDS: AMOXICILLIN/CLAVULANATE K 500 MG TAB PO SCH (06:43)
[2017-07-15] MEDS: traMADol HCL 50 MG TAB PO PRN ×3 (06:45→22:42)
[2017-07-15] MEDS: BETHANECHOL CHL 25 MG TAB PO SCH ×3 (06:46→22:10)
[2017-07-15] MEDS: METOCLOPRAMIDE HCL 10 MG/2 ML VIAL IV PUSH SCH ×3 (06:47→22:11)
[2017-07-15] MEDS: POLYETHYLENE GLYCOL 17 GM PKG PO SCH (09:00)
[2017-07-15] MEDS: REMOVE OLD PATCH T-DERMAL SCH (09:00)
[2017-07-15] MEDS: DOCUSATE SODIUM 50 MG/SENNA 8.6 MG TAB PO SCH ×2 (09:00→22:10)
[2017-07-15] MEDS: RIFAXIMIN 550 MG TAB PO SCH ×2 (09:21→22:34)
[2017-07-15] MEDS: SODIUM CHLORIDE 0.9% FLUSH 10 ML FLUSH IV FLUSH SCH ×2 (09:21→22:12)
[2017-07-15] MEDS: PANTOPRAZOLE SODIUM 40 MG VIAL IV SCH ×2 (09:21→22:13)
[2017-07-15] MEDS: THIAMINE HCL 100 MG TAB PO SCH (09:22)
[2017-07-15] MEDS: NICOTINE 14 MG/24 HR PATCH T-DERMAL SCH (09:22)
[2017-07-15] MEDS: guaiFENesin E.R. 600 MG TAB PO SCH ×2 (09:22→22:10)
--- NOTE | 2017-07-15 10:39 | HHI.PR ---
Subjective Remarks still with some abdominal pain and distention. rectal tube has been removed. no nausea. afebrile. Objective Vitals Vital Signs Date Time Temp Pulse Resp B/P (MAP) Pulse Ox O2 Delivery O2 Flow Rate FiO2 07/15/17 08:34 98.1 70 20 112/68 (83) 98 07/15/17 08:00 64 07/15/17 08:00 Nasal Cannula 2.00 07/15/17 05:30 97.6 70 18 108/67 (81) 98 07/15/17 00:30 97.3 66 16 89/53 (65) 95 07/14/17 22:00 68 07/14/17 21:00 Nasal Cannula 2.00 07/14/17 20:00 97.2 67 16 95/58 (70) 96 07/14/17 18:00 61 07/14/17 16:55 98.9 69 18 103/60 (74) 95 07/14/17 16:00 Nasal Cannula 2.00 07/14/17 12:42 97.7 62 16 97/55 (69) 97 I/O 07/14/17 07/14/17 07/14/17 07/15/17 07/15/17 07/15/17 06:59 14:59 22:59 06:59 14:59 22:59 Intake Total 480 ml 240 ml 1000 ml Output Total 700 ml 1750 ml 800 ml Balance -700 ml -1270 ml 240 ml 200 ml Intake Oral 480 ml 240 ml 1000 ml Output Urine Total 700 ml 1500 ml 800 ml Stool Total 250 ml # Bowel Movements 2 Result Diagram: 07/14/17 1110 07/14/17 0640 Imaging Last Impressions Abdomen X-Ray 07/14/17 0600 Signed Impressions: Service Date/Time: Friday, July 14, 2017 07:47 - CONCLUSION: 1. Diffuse gaseous distention of the small and large bowel suggesting adynamic ileus. Franc Nelson MD Small Bowel X-Ray 07/10/17 0000 Signed Impressions: Service Date/Time: Monday, July 10, 2017 08:26 - CONCLUSION: 1. Diffuse small bowel dilatation and delayed small bowel transit time of approximately 5- 6 hours without focal transition point, intraluminal filling defect or gross mass. Findings are most consistent with moderate adynamic ileus. Bryson Downing MD Renal Ultrasound 07/10/17 0000 Signed Impressions: Service Date/Time: Monday, July 10, 2017 18:25 - CONCLUSION: 1. Unremarkable renal ultrasound. Mild ascites. Albert Walden MD Chest X-Ray 07/09/17 0600 Signed Impressions: Service Date/Time: July 06:10 - CONCLUSION: 1. Minimal basilar dependent density. Differential diagnosis includes atelectasis. Findings similar to prior exam. Albert Walden MD Chest CT 07/05/17 1635 Signed Impressions: Service Date/Time: Wednesday, July 05, 2017 18:11 - CONCLUSION: 1. Segmental consolidation with volume loss medial right lower lung. 2. Atelectasis or basilar consolidation left lower lung. 3. Mild amount of ascites. Caesar Ann MD Abdomen MRI 07/02/17 0000 Signed Impressions: Service Date/Time: June 16:34 - CONCLUSION: 1. Hepatomegaly and hepatic steatosis. No focal mass identified. 2. Moderate splenomegaly. 3. Small amount of ascites. 4. Small bilateral pleural effusions. Wilbert Howe MD Ankle X-Ray 07/01/17 0000 Signed Impressions: Service Date/Time: Saturday, July 01, 2017 10:22 - CONCLUSION: Soft tissue mass noted to be fluid filled on ultrasound 09/10/2012. Colten Nelson MD FACR Head CT 06/30/17 0000 Signed Impressions: Service Date/Time: Saturday, July 01, 2017 02:24 - CONCLUSION: 1. No acute intracranial abnormalities. Previous fixation left maxillary sinus. Albert Walden MD Cervical Spine CT 06/30/17 0000 Signed Impressions: Service Date/Time: Saturday, July 01, 2017 02:24 - CONCLUSION: Normal examination for a patient of this age. Albert Walden MD Abdomen/Pelvis CT 06/29/17 0000 Signed Impressions: Service Date/Time: Thursday, June 29, 2017 12:52 - CONCLUSION: 1. Hepatosplenomegaly and varices noted as above. 2. Atherosclerosis. 3. Abnormal diffuse heterogeneous appearance of the liver which may be related to either marked hepatic steatosis in an inhomogeneous fashion versus steatosis and underlying diffuse liver masses. An MRI of the abdomen with and without contrast may be helpful for further evaluation of this finding. Navjot Chirinos MD Objective Remarks GENERAL: looks better today. CARDIOVASCULAR: Regular rate and regular rhythm without murmurs, gallops, or rubs. RESPIRATORY: diffuse wheezing with occasional cough GASTROINTESTINAL: Abdomen soft, non-tender, distended. Normal, active bowel sounds MUSCULOSKELETAL: Extremities without clubbing, cyanosis, or edema. NEURO: awake and more alert today. Procedures 06/30/17 EGD Medications and IVs Current Medications Sodium Chloride (NS Flush) 2 ml UNSCH PRN IV FLUSH FLUSH AFTER USING IV ACCESS ; Start 06/29/17 at 11:00; Stop 06/29/17 at 15:56; Status DC Iohexol (Omnipaque 350 Inj) 92 ml STK-MED ONCE IVCONTRAST Last administered on 06/29/17 10:21; Start 06/29/17 at 10:21; Stop 06/29/17 at 13:05; Status DC Octreotide Acetate (SandoSTATIN INJ) 100 mcg ONCE ONCE IV PUSH Last administered on 06/29/17 14:31; Start 06/29/17 at 14:15; Stop 06/29/17 at 14:27 ; Status DC Pantoprazole Sodium (Protonix Inj) 80 mg ONCE ONCE IV PUSH Last administered on 06/29/17 14:31; Start 06/29/17 at 14:15; Stop 06/29/17 at 14:27; Status DC Clonidine (Catapres) 0.1 mg Q4H PRN PO SBP>160, DBP>90; Start 06/29/17 at 16:00 Sodium Chloride 1,000 ml @ 100 mls/hr Q10H IV Last administered on 06/30/17 12:00; Start 06/29/17 at 16:00; Stop 06/30/17 at 17:09; Status DC Sodium Chloride (NS Flush) 2 ml UNSCH PRN IV FLUSH FLUSH AFTER USING IV ACCESS ; Start 06/29/17 at 16:00 Sodium Chloride (NS Flush) 2 ml BID IV FLUSH Last administered on 07/15/17 09 :21; Start 06/29/17 at 21:00 Acetaminophen (Tylenol) 650 mg Q4H PRN PO TEMP > 100.4; Start 06/29/17 at 15:15 Ondansetron HCl (Zofran Inj) 4 mg Q6H PRN IVP NAUSEA OR VOMITING Last administered on 07/08/17 08:43; Start 06/29/17 at 15:15 Prochlorperazine (Compazine Supp) 25 mg Q12H PRN RECTAL NAUSEA OR VOMITING; Start 06/29/17 at 15:15 Acetaminophen (Tylenol) 650 mg Q6H PRN PO PAIN SCALE 1 TO 2 Last administered on 06/30/17 04:52; Start 06/29/17 at 15:15 Morphine Sulfate (Morphine Inj) 2 mg Q3H PRN IV PUSH Pain 3-5; if unable to take PO Last administered on 07/08/17 08:43; Start 06/29/17 at 16:00 Morphine Sulfate (Morphine Inj) 4 mg Q3H PRN IV PUSH Pain 6-10;if unable to take PO; Start 06/29/17 at 16:00 Tramadol HCl (Ultram) 50 mg Q4H PRN PO PAIN SCALE 3 TO 5 Last administered on 07/10/17 22:44; Start 06/29/17 at 16:00 Tramadol HCl (Ultram) 100 mg Q4H PRN PO PAIN SCALE 6 TO 10 Last administered on 07/15/17 06:45; Start 06/29/17 at 16:00 Naloxone HCl (Narcan Inj) 0.4 mg UNSCH PRN IV PUSH SEE LABEL COMMENTS; Start at 16:00 Senna/Docusate Sodium (Brittany-Colace) 1 tab BID PO Last administered on 21:07; Start 06/29/17 at 21:00 Magnesium Hydroxide (Milk Of Magnesia Liq) 30 ml Q12H PRN PO MILD - MODERATE CONSTIPATION; Start 06/29/17 at 15:15 Sennosides (Senokot) 17.2 mg Q12H PRN PO MODERATE - SEVERE CONSTIPATION; Start 06/29/17 at 15:15 Bisacodyl (Dulcolax Supp) 10 mg DAILY PRN RECTAL SEVERE CONSITIPATION; Start at 15:15 Lactulose (Lactulose Liq) 30 ml DAILY PRN PO SEVERE CONSITIPATION; Start at 15:15; Status Future Hold Flumazenil (Romazicon Inj) 0.2 mg Q1M PRN IV PUSH SEE LABEL COMMENTS; Start at 16:00; Stop 07/10/17 at 11:28; Status DC Lorazepam (Ativan) 1 mg Q4H PRN PO CIWA 8 - 10 Last administered on 06/30/17 09:32; Start 06/29/17 at 16:00; Stop 07/10/17 at 11:28; Status DC Lorazepam (Ativan Inj) 1 mg Q4H PRN IV PUSH CIWA 8 - 10 Last administered on 10:17; Start 06/29/17 at 16:00; Stop 07/10/17 at 11:28; Status DC Lorazepam (Ativan) 2 mg Q2H PRN PO CIWA 11-14; Start 06/29/17 at 16:00; Stop 07/10/17 at 11:28; Status DC Lorazepam (Ativan Inj) 2 mg Q2H PRN IV PUSH CIWA 11-14 Last administered on 19:33; Start 06/29/17 at 16:00; Stop 07/10/17 at 11:28; Status DC Lorazepam (Ativan Inj) 2 mg Q1H PRN IV PUSH CIWA 15-20; Start 06/29/17 at 16:00 ; Stop 07/10/17 at 11:28; Status DC Lorazepam (Ativan Inj) 2 mg Q15M PRN IV PUSH CIWA > 20 Last administered on 02:48; Start 06/29/17 at 16:00; Stop 07/10/17 at 11:28; Status DC Haloperidol Lactate (Haldol Inj) 2 mg Q15M PRN IM SEE LABEL COMMENTS Last administered on 07/06/17 01:12; Start 06/29/17 at 16:00; Stop 07/10/17 at 11:28 ; Status DC Sodium Chloride (NS Flush) 2 ml UNSCH PRN IV FLUSH FLUSH AFTER USING IV ACCESS ; Start 06/29/17 at 15:15; Status UNV Sodium Chloride (NS Flush) 2 ml BID IV FLUSH ; Start 06/29/17 at 21:00; Status UNV Folic Acid (Folate) 1 mg DAILY PO Last administered on 07/04/17 10:08; Start 06/29/17 at 16:00; Stop 07/04/17 at 15:59; Status DC Thiamine HCl (Vitamin B1) 100 mg DAILY PO Last administered on 07/15/17 09:22 ; Start 06/29/17 at 16:00; Status Future hold Multivitamins/ Minerals Therapeutic (Theragran M Tab) 1 tab DAILY PO Last administered on 07/04/17 10:08; Start 06/29/17 at 16:00; Stop 07/04/17 at 15:59 ; Status DC Clonidine (Catapres) 0.1 mg Q6H PRN PO SEE LABEL COMMENTS; Start 06/29/17 at 16 :00 Sodium Chloride (NS Flush) 2 ml UNSCH PRN IV FLUSH FLUSH AFTER USING IV ACCESS ; Start 06/29/17 at 15:15; Status UNV Sodium Chloride (NS Flush) 2 ml BID IV FLUSH ; Start 06/29/17 at 21:00; Status UNV Pantoprazole Sodium (Protonix Inj) 40 mg BID IV Last administered on 09:21; Start 06/29/17 at 21:00 Albuterol/ Ipratropium (Duoneb Neb) 1 ampule Q4HR NEB PRN NEB sob; Start at 15:30; Stop 07/01/17 at 07:05; Status DC Guaifenesin (Mucinex Er) 600 mg BID PO Last administered on 07/15/17 09:22; Start 06/29/17 at 21:00 Nicotine (Habitrol 14 Mg Patch.24 Hr) 1 patch ONCE ONCE T-DERMAL Last administered on 06/29/17 18:04; Start 06/29/17 at 16:00; Stop 06/29/17 at 16:01 ; Status DC Nicotine (Habitrol 14 Mg Patch.24 Hr) 1 patch DAILY T-DERMAL Last administered on 07/15/17 09:22; Start 06/30/17 at 09:00 Miscellaneous Information 1 DAILY T-DERMAL Last administered on 07/15/17 09: 00; Start 06/30/17 at 09:00 Rifaximin (Xifaxan) 550 mg BID PO Last administered on 07/15/17 09:21; Start 06/30/17 at 11:45 Lactulose (Lactulose Liq) 30 ml BID PO Last administered on 07/06/17 09:02; Start 06/30/17 at 21:00; Stop 07/06/17 at 15:21; Status DC Miscellaneous Information ALL NURSING DEPARTME... UNSCH PRN .XX SEE LABEL COMMENTS; Start 06/30/17 at 12:56; Stop 07/01/17 at 12:55; Status DC Chlordiazepoxide (Librium) 50 mg Q6H PO Last administered on 07/04/17 10:08; Start 06/30/17 at 16:00; Stop 07/04/17 at 16:15; Status DC Dexmedetomidine HCl 200 mcg/ Sodium Chloride 50 ml @ 4.86 mls/hr TITRATE PRN IV Desired RASS; Start 06/30/17 at 16:00; Stop 06/30/17 at 16:25; Status DC Dexmedetomidine HCl 1000 mcg/ Sodium Chloride 250 ml @ 4.86 mls/hr TITRATE PRN IV Desired RASS Last administered on 07/01/17 09:03; Start 06/30/17 at 16: 30; Stop 07/03/17 at 09:48; Status DC Dextrose/Sodium Chloride 1,000 ml @ 84 mls/hr [id number] IV Last administered on 07/03/17 04:36; Start 06/30/17 at 17:15; Stop 07/03/17 at 09:48; Status DC Dextrose (D50w (Vial) Inj) 50 ml UNSCH PRN IV PUSH HYPOGLYCEMIA-SEE COMMENTS; Start 06/30/17 at 17:15 Glucagon (Glucagon Inj) 1 mg UNSCH PRN OTHER HYPOGLYCEMIA-SEE COMMENTS; Start 06/30/17 at 17:15 Insulin Human Regular (NovoLIN R SUPPLEMENTAL SCALE) 1 Q4H SQ ; Start 06/30/17 at 18:00 Albuterol/ Ipratropium (Duoneb Neb) 1 ampule Q2HR NEB PRN NEB sob Last administered on 07/03/17 23:32; Start 07/01/17 at 07:15; Stop 07/04/17 at 16:21 ; Status DC Thiamine HCl 100 mg/Sodium Chloride 101 ml @ 101 mls/hr DAILY IV Last administered on 07/03/17 09:12; Start 07/01/17 at 09:00; Stop 07/04/17 at 08:59 ; Status DC Albuterol/ Ipratropium (Duoneb Neb) 1 ampule Q6HR NEB NEB Last administered on 07/04/17 09:47; Start 07/01/17 at 10:00; Stop 07/04/17 at 14:52; Status DC Potassium Chloride (KCl) 80 meq ONCE ONCE PO Last administered on 07/01/17 09 :00; Start 07/01/17 at 07:15; Stop 07/01/17 at 07:37; Status DC Potassium Chloride 100 ml @ 50 mls/hr Q2H PRN IV For Potassium 2.8 - 3.2 mEq/L ; Start 07/01/17 at 09:30; Stop 07/08/17 at 08:16; Status DC Potassium Chloride 100 ml @ 50 mls/hr Q2H PRN IV For Potassium 2.8 - 3.2 mEq/ L Last administered on 07/08/17 06:53; Start 07/01/17 at 09:30; Stop 07/08/17 at 08:16; Status DC Potassium Bicarb/ Potassium Chloride (K-Lyte Cl Eff) 50 meq UNSCH PRN PO For Potassium 3.3 - 3.5 mEq/L Last administered on 07/01/17 17:53; Start 07/01/17 at 09:30 Potassium Chloride 100 ml @ 25 mls/hr UNSCH PRN IV For Potassium 3.3 - 3.5 mEq /L; Start 07/01/17 at 09:30; Stop 07/08/17 at 08:16; Status DC Potassium Chloride 100 ml @ 50 mls/hr Q2H PRN IV For Potassium 3.3 - 3.5 mEq/ L Last administered on 07/04/17 18:26; Start 07/01/17 at 09:30; Stop 07/08/17 at 08:16; Status DC Magnesium Sulfate 4 gm/Sodium Chloride 100 ml @ 50 mls/hr UNSCH PRN IV For Magnesium 0.9 - 1.1 mg/dL; Start 07/01/17 at 09:30; Stop 07/08/17 at 08:16; Status DC Magnesium Oxide (Mag-Ox) 800 mg UNSCH PRN PO For Magnesium 1.2 - 1.6 mg/dL; Start 07/01/17 at 09:30; Stop 07/08/17 at 08:16; Status DC Magnesium Sulfate 2 gm/Sodium Chloride 100 ml @ 50 mls/hr UNSCH PRN IV For Magnesium 1.2 - 1.6 mg/dL; Start 07/01/17 at 09:30; Stop 07/08/17 at 08:16; Status DC Potassium Phosphate (K-Phos) 2,000 mg Q4H PRN PO For Phosphorus < 2.5 mg/dL; Start 07/01/17 at 09:30; Stop 07/08/17 at 08:16; Status DC Sodium Phosphate 30 mmol/Sodium Chloride 250 ml @ 42 mls/hr UNSCH PRN IV For Phosphorus < 2.5 mg/dL; Start 07/01/17 at 09:30; Stop 07/08/17 at 08:16; Status DC Potassium Phosphate (K-Phos) 2,000 mg UNSCH PRN PO/TUBE SEE LABEL COMMENTS; Start 07/01/17 at 09:30; Stop 07/08/17 at 08:16; Status DC Potassium Phosphate 30 mmol/ Sodium Chloride 260 ml @ 42 mls/hr UNSCH PRN IV SEE LABEL COMMENTS; Start 07/01/17 at 09:30; Stop 07/08/17 at 08:16; Status DC Lidocaine HCl (Xylocaine-Mpf 1% Inj) 5 ml STK-MED ONCE OTHER ; Start 06/30/17 at 12:00; Stop 07/01/17 at 15:24; Status DC Propofol (Diprivan 200 Mg/20 ml Inj) 400 mg STK-MED ONCE IV ; Start 06/30/17 at 12:00; Stop 07/01/17 at 15:24; Status DC Metoclopramide HCl (Reglan Inj) 10 mg Q8HR IV PUSH Last administered on 06:47; Start 07/02/17 at 09:00 Polyethylene Glycol (Miralax) 17 gm DAILY PO Last administered on 07/13/17 10: 17; Start 07/02/17 at 09:00 Gadodiamide (Omniscan Pf Inj) 19 ml STK-MED ONCE IVCONTRAST Last administered on 07/02/17 17:13; Start 07/02/17 at 17:13; Stop 07/02/17 at 17:14; Status DC Sodium Biphosphate/ Sodium Phosphate (Fleets Enema (Adult)) 133 ml ONCE ONCE RECTAL Last administered on 07/03/17 17:23; Start 07/03/17 at 17:00; Stop at 17:01; Status DC Furosemide (Lasix Inj) 40 mg NOW ONCE IV PUSH Last administered on 07/03/17 19:20; Start 07/03/17 at 19:15; Stop 07/03/17 at 19:16; Status DC Dexmedetomidine HCl 200 mcg/ Sodium Chloride 52 ml @ 5 mls/hr TITRATE PRN IV SEDATION Last administered on 07/04/17 05:45; Start 07/03/17 at 22:00; Stop at 16:18; Status DC Acetylcysteine (Mucomyst 10% Neb) 2 ml Q6HR NEB NEB Last administered on 07:44; Start 07/04/17 at 04:00; Stop 07/05/17 at 14:10; Status DC Vancomycin HCl 1000 mg/Sodium Chloride 250 ml @ 250 mls/hr ONCE ONCE IV ; Start 07/04/17 at 08:30; Stop 07/04/17 at 09:29; Status UNV Pharmacy Profile Note 0 ml @ 0 mls/hr UNSCH OTHER ; Start 07/04/17 at 08:30; Stop 07/09/17 at 11:30; Status DC Piperacillin Sod/ Tazobactam Sod 50 ml @ 100 mls/hr Q8H IV Last administered on 07/09/17 09:36; Start 07/04/17 at 09:00; Stop 07/09/17 at 11:35; Status DC Sodium Chloride 1,000 ml @ 60 mls/hr [id number] IV Last administered on 10:06; Start 07/04/17 at 08:30; Stop 07/04/17 at 16:18; Status DC Vancomycin HCl 1700 mg/Sodium Chloride 517 ml @ 250 mls/hr Q12H IV Last administered on 07/05/17 23:08; Start 07/04/17 at 11:00; Stop 07/06/17 at 11:38 ; Status DC Miscellaneous Information SPECIFIC LAB TO BE DRAWN:VANCOMY... ONCE ONCE .XX ; Start 07/05/17 at 22:45; Stop 07/05/17 at 22:46; Status DC Metronidazole 100 ml @ 100 mls/hr Q8H IV Last administered on 07/09/17 07:15 ; Start 07/04/17 at 16:00; Stop 07/09/17 at 11:35; Status DC Albuterol/ Ipratropium (Duoneb Neb) 1 ampule Q6HR WHILE AWAKE NEB NEB Last administered on 07/04/17 15:21; Start 07/04/17 at 20:00; Stop 07/04/17 at 20:00 ; Status DC Furosemide (Lasix Inj) 40 mg ONCE ONCE IV PUSH Last administered on 07/04/17 15:36; Start 07/04/17 at 15:30; Stop 07/04/17 at 15:31; Status DC Furosemide (Lasix Inj) 40 mg STK-MED ONCE .ROUTE ; Start 07/04/17 at 15:19; Stop 07/04/17 at 15:20; Status DC Diltiazem HCl (Cardizem Inj) 10 mg ONCE ONCE IV Last administered on 16:07; Start 07/04/17 at 16:00; Stop 07/04/17 at 16:02; Status DC Diltiazem HCl (Cardizem Inj) 25 mg STK-MED ONCE .ROUTE ; Start 07/04/17 at 16:00 ; Stop 07/04/17 at 16:01; Status DC Chlordiazepoxide (Librium) 25 mg Q12H PO Last administered on 07/06/17 02:31; Start 07/05/17 at 04:00; Stop 07/06/17 at 10:08; Status DC Albuterol/ Ipratropium (Duoneb Neb) 1 ampule Q4HR NEB NEB ; Start 07/04/17 at 20:00; Stop 07/05/17 at 06:22; Status DC Albuterol/ Ipratropium (Duoneb Neb) 1 ampule Q2HR NEB PRN NEB SHORTNESS OF BREATH Last administered on 07/12/17 09:49; Start 07/04/17 at 16:15 Clonidine (Catapres) 0.2 mg Q8HR PO Last administered on 07/14/17 13:45; Start 07/04/17 at 22:00 Diltiazem HCl (Cardizem Inj) 10 mg ONCE ONCE IV Last administered on 16:22; Start 07/04/17 at 16:15; Stop 07/04/17 at 16:20; Status DC Albuterol/ Ipratropium (Duoneb Neb) 1 ampule Q6HR WHILE AWAKE NEB NEB Last administered on 07/08/17 08:59; Start 07/04/17 at 20:00; Stop 07/08/17 at 19:59 ; Status DC Bumetanide (Bumex Inj) 1 mg ONCE ONCE IV PUSH Last administered on 07/05/17 12:35; Start 07/05/17 at 11:30; Stop 07/05/17 at 11:31; Status DC Chlordiazepoxide (Librium) 25 mg DAILY PO Last administered on 07/07/17 08:21 ; Start 07/07/17 at 09:00; Stop 07/08/17 at 08:16; Status DC Vancomycin HCl 2000 mg/Sodium Chloride 520 ml @ 257.5 mls/ hr Q12H IV Last administered on 07/09/17 03:43; Start 07/06/17 at 13:00; Stop 07/09/17 at 11:30 ; Status DC Miscellaneous Information SPECIFIC LAB TO BE IGNACIO... ONCE ONCE .XX Last administered on 07/08/17 12:45; Start 07/08/17 at 12:45; Stop 07/08/17 at 12:46 ; Status DC Lactulose (Lactulose Liq) 30 ml TID PO Last administered on 07/10/17 18:21; Start 07/06/17 at 18:00; Status Future Hold Chlordiazepoxide (Librium) 20 mg DAILY PO Last administered on 07/10/17 09:48 ; Start 07/08/17 at 09:00; Stop 07/10/17 at 11:30; Status DC Miscellaneous Information SPECIFIC LAB TO BE DRAWN:VANCOMYCIN TROUGH DATE TO... ONCE ONCE .XX ; Start 07/09/17 at 12:45; Stop 07/09/17 at 12:46; Status Cancel Amoxicillin/ Clavulanate Potassium (Augmentin) 500 mg Q8HR PO Last administered on 07/15/17 06:43; Start 07/09/17 at 14:00 Albuterol/ Ipratropium (Duoneb Neb) 1 ampule Q4HR NEB NEB Last administered on 07/10/17 05:42; Start 07/09/17 at 12:00; Stop 07/10/17 at 12:08; Status DC Methylnaltrexone [place] (Relistor Inj) 12 mg ONCE ONCE SQ Last administered on 07/09/17 13:41; Start 07/09/17 at 12:45; Stop 07/09/17 at 12:52; Status DC Diatrizoate Meglum/ Diatrizoate Sod ( Gastroview Liq) 120 ml STK-MED ONCE PO Last administered on 07/10/17 09:30; Start 07/10/17 at 09:30; Stop 07/10/17 at 11:06; Status DC Diatrizoate Meglum/ Diatrizoate Sod ( Gastroview Liq) 120 ml STK-MED ONCE PO Last administered on 07/10/17 10:40; Start 07/10/17 at 10:40; Stop 07/10/17 at 11:14; Status DC Chlordiazepoxide (Librium) 15 mg ONCE ONCE PO Last administered on 07/11/17 09:37; Start 07/11/17 at 09:00; Stop 07/11/17 at 09:01; Status DC Lorazepam (Ativan) 0.5 mg Q6HR PRN PO ANXIETY; Start 07/10/17 at 12:00 Potassium Chloride (KCl) 20 meq ONCE ONCE PO Last administered on 07/10/17 14 :35; Start 07/10/17 at 13:00; Stop 07/10/17 at 13:01; Status DC Bethanechol Chloride (Urecholine) 25 mg Q8HR PO Last administered on 06:46; Start 07/13/17 at 14:00 Patient Own Medication PT OWN MED: JAKE... BID PO ; Start 07/13/17 at 21:00; Status Future Hold Polyethylene Glycol/ Electrolytes (Colyte Liq) 2,000 ml ONCE ONCE PO Last administered on 07/14/17 21:11; Start 07/14/17 at 17:00; Stop 07/14/17 at 17 :01; Status DC A/P Problem List: (1) Esophageal varices ICD Code: I85.00 - Esophageal varices without bleeding (2) Gastrointestinal bleed ICD Code: K92.2 - Gastrointestinal hemorrhage, unspecified (3) GERD Status: Chronic (4) Alcohol use ICD Code: Z78.9 - Other specified health status Status: Acute (5) Tobacco abuse ICD Code: Z72.0 - Tobacco use Status: Chronic (6) Jaundice ICD Code: R17 - Unspecified jaundice (7) Gastritis ICD Code: K29.70 - Gastritis, unspecified, without bleeding Status: Acute (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 Patient with history of right zygomatic/maxillary sinus surgery 2015 CT C-spine 07/01 negative findings Tramadol 50-100 mg every 4 hours as needed pain Atherosclerotic vascular disease Dyslipidemia Hypertension Monitor HR and BP On Clonidine 0.2mg Q8 for BP control Possible Aspiration pneumonia Tobaccoism History of asthma/reactive airway disease Continue with oxygen keep sat> 92% continue neb treatments. stop Augmentin. Pulmonary is following-Dr. Horan acute kidney injury non-oliguric- will monitor the renal function closely. renal sonogram with no acute abnormality. nephrology following. History esophageal cancer? Menendez's esophagus Gastroesophageal reflux disease Gout Gastritis/duodenitis Splenomegaly ileus CT abdomen/pelvis revealed splenomegaly 19.3 cm. varices at the esophageal hiatus, gastric ligament and left upper quadrant. Renal splenic shunt appreciated. MRI abdomen showed Hepatomegaly and hepatic steatosis. No focal mass identified. Moderate splenomegaly. Small amount of ascites.Small bilateral pleural effusions. Liver workup including JOSE, ASMA, Hep profile all negative. on full liquid diet EGD 06/30 by GI revealed mild gastritis, duodenitis. Likely esophagitis/Menendez' s not biopsied. Pantoprazole 40 mg IV daily for GI prophylaxis continue Lactulose and Xifaxan . trial of bethanechol. GI following. Elevated TSH 6.7. History of gout Sliding-scale insulin Novulin R every 4 hrs for maintain euglycemia hypokalemia replaced. Macrocytic anemia Thrombocytopenia chronic likely secondary to underlying EtOH /cirrhotic liver disease-(improving) Monitor CBC/coags No signs of hemolysis/consumption thrombocytopenia. This appears to be a chronic condition Right ankle pain X-ray right ankle rule out fracture-Soft tissue mass noted to be fluid filled on ultrasound 09/10/2012. No acute fracture PT evaluate and treat Prophylaxis - GI - pantoprazole - DVT - SCD/holding pharmacological prophylaxis in light of thrombocytopenia palliative care evaluation appreciated. previously d/w the patient regarding the code status and he wants to stay on full-code status. Discharge Planning still with persistent ileus/ abdominal distention. GI following. not ready for discharge. Tyson Boyd MD Jul 15, 2017 10:39
[2017-07-15 10:55] LABS: BICARBONATE 23.6 MEQ/L (21.0-32.0); CALCIUM 8.4 MG/DL (8.5-10.1); CREATININE 1.97 MG/DL (0.60-1.30)
--- NOTE | 2017-07-15 11:12 | HHI.NPPN ---
Subjective History of Present Illness 51-year-old male with a past medical history of cirrhosis of the liver, bronchial asthma, depression, hyperlipidemia, pancreatitis, Menendez's esophagus, chronic abdominal pain, possible history of gastric ulcer and varices, questionable esophageal cancer who was admitted with abdominal pain and distension. I was called to see the patient because of elevated BUN and creatinine. Additional Remarks Patient is alert, no SOB, started eating, complain of abd. distension. Review of Systems General Constitutional: Fatigue Respiratory Lungs: Wheeze Cardiovascular Cardiac: CORTES Gastrointestinal Gastrointestinal: Abdominal Pain Objective Data Data Vital Signs Date Time Temp Pulse Resp B/P (MAP) Pulse Ox O2 Delivery O2 Flow Rate FiO2 07/15/17 08:34 98.1 70 20 112/68 (83) 98 07/15/17 08:00 64 07/15/17 08:00 Nasal Cannula 2.00 07/15/17 05:30 97.6 70 18 108/67 (81) 98 07/15/17 00:30 97.3 66 16 89/53 (65) 95 07/14/17 22:00 68 07/14/17 21:00 Nasal Cannula 2.00 07/14/17 20:00 97.2 67 16 95/58 (70) 96 07/14/17 18:00 61 07/14/17 16:55 98.9 69 18 103/60 (74) 95 07/14/17 16:00 Nasal Cannula 2.00 07/14/17 12:42 97.7 62 16 97/55 (69) 97 -: 07/14/17 1110 07/15/17 0850 Physical Exam General Appearance: No Acute Distress, Anxious Throat Throat Exam: Oral Mucosa [place] & Moist Neck Neck Exam: Neck Supple Pulmonary Resp Exam: Breath Sounds Equal, Rhonchi, Decreased Bases Cardiology CV Exam: Regular, Normal Sinus Rhythm Gastrointestinal/Abdomen GI Exam: Soft, Non-Tender, Distended Extremeties Extremities Exam: Trace Edema Neurologic Neuro Exam: Alert, Awake, Oriented Assessment/Plan Assessment Summary: DON/Acute Renal Failure Problem List: (1) Acute kidney injury ICD Codes: N17.9 - Acute kidney failure, unspecified (2) Encephalopathy ICD Codes: G93.40 - Encephalopathy, unspecified (3) Anemia ICD Codes: D64.9 - Anemia, unspecified Status: Acute (4) Jaundice ICD Codes: R17 - Unspecified jaundice (5) Gastritis ICD Codes: K29.70 - Gastritis, unspecified, without bleeding Status: Acute (6) 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 Normal size kidneys and has Normal Na. in the urine. Urine Eosinophils is negative. Most likely has ATN causing DON. Has elevated Bilirubin. BP is stable, Creatinine is slightly better, now 1.9. Follow the urine out put and BMP. Avoid Nephrotoxins. Linette Guerra MD Jul 15, 2017 11:12
--- NOTE | 2017-07-15 12:48 | HHI.HCPN ---
Reason for visit a. To assist with evaluation and management of symptoms including: pain, encephalopathy, and dyspnea b. To assist medical decision maker(s) with: better understanding of current medical conditions; weighing benefits/burdens of medical treatment options; making medical treatment decisions. . Subjective/Interval History Patient examined in room, no family at bedside. Patient is drowsy today, oriented x 2-3, intermittent confusion and nonsensical speech. Patient reports his abdomen is sore today, he stated after drinking the Go-Lytely yesterday he had several bowel movements, it is documented in the EMR that he had two BMs over the past 24 hours. His abdomen remains distended, firm, tender in all four quadrants. BUN/creatinine slowly improving, 23/1.97 today, LFTs also slowly improving today: Total bilirubin:1.9, AST:42, ALT:11. Family/friend interactions Called patient's son Major ([facility]) no availability to leave VM. Advance Directives Health Care Surrogate: Copy in medical record Advance Directive Specifics Date completed: 07/13/17 . Health Care Surrogate(s): German Martin (son) [phone] Jeanine Salgado (former spouse) [phone] Documented care wishes: No known documented care wishes. . Objective Vital Signs Date Time Temp Pulse Resp B/P (MAP) Pulse Ox O2 Delivery O2 Flow Rate FiO2 07/15/17 12:14 98.1 68 20 106/62 (77) 94 07/15/17 08:34 98.1 70 20 112/68 (83) 98 07/15/17 08:00 64 07/15/17 08:00 Nasal Cannula 2.00 07/15/17 05:30 97.6 70 18 108/67 (81) 98 07/15/17 00:30 97.3 66 16 89/53 (65) 95 07/14/17 22:00 68 07/14/17 21:00 Nasal Cannula 2.00 07/14/17 20:00 97.2 67 16 95/58 (70) 96 07/14/17 18:00 61 07/14/17 16:55 98.9 69 18 103/60 (74) 95 07/14/17 16:00 Nasal Cannula 2.00 07/14/17 12:42 97.7 62 16 97/55 (69) 97 Intake & Output 07/15/17 07/15/17 07:00 19:00 Intake Total 1000 ml Output Total 800 ml Balance 200 ml Intake Oral 1000 ml Output Urine Total 800 ml # Bowel Movements 2 . Physical Exam CONSTITUTIONAL/GENERAL: This is an adequately nourished, middle aged male in no acute distress. TUBES/LINES/DRAINS: Sanchez catheter, PIV 2 EYES: Pupils equal and round. No injection or drainage. ENT: Hearing grossly normal. Nose without bleeding or purulent drainage. CARDIOVASCULAR: Regular rate and rhythm without murmurs, gallops, or rubs. No JVD. Peripheral pulses symmetric. RESPIRATORY/CHEST: Breath sounds diminished bilaterally. GASTROINTESTINAL: Abdomen is distended; limited palpation secondary to tenderness. Active bowel sounds. GENITOURINARY: Condom catheter, draining dark oral urine. MUSCULOSKELETAL: Extremities without clubbing, cyanosis, or edema. No mottling or clubbing. NEUROLOGICAL: Alert and awake. Oriented x 3. Follows commands. PSYCHIATRIC: No obvious anxiety/depression. no apparent hallucinations or other psychotic thought process. . Diagnostic Tests Laboratory Laboratory Tests Test 07/13/17 09:11 07/13/17 20:26 07/14/17 06:40 07/14/17 11:10 Blood Urea Nitrogen 23 MG/DL (7-18) 24 MG/DL (7-18) Creatinine 2.40 MG/DL (0.60-1.30) 2.27 MG/DL (0.60-1.30) Random Glucose 80 MG/DL (74-106) 81 MG/DL (74-106) Calcium Level 8.0 MG/DL (8.5-10.1) 7.8 MG/DL (8.5-10.1) Sodium Level 134 MEQ/L (136-145) 133 MEQ/L (136-145) Potassium Level 3.9 MEQ/L (3.5-5.1) 4.3 MEQ/L (3.5-5.1) Chloride Level 104 MEQ/L (98-107) 103 MEQ/L (98-107) Carbon Dioxide Level 22.2 MEQ/L (21.0-32.0) 21.4 MEQ/L (21.0-32.0) Anion Gap 8 MEQ/L (5-15) 9 MEQ/L (5-15) Estimat Glomerular Filtration Rate 29 ML/MIN (>89) 31 ML/MIN (>89) White Blood Count 7.1 TH/MM3 (4.0-11.0) 8.3 TH/MM3 (4.0-11.0) Red Blood Count 2.80 MIL/MM3 (4.50-5.90) 2.98 MIL/MM3 (4.50-5.90) Hemoglobin 9.7 GM/DL (13.0-17.0) 10.3 GM/DL (13.0-17.0) Hematocrit 29.3 % (39.0-51.0) 31.2 % (39.0-51.0) Mean Corpuscular Volume 104.6 FL (80.0-100.0) 104.9 FL (80.0-100.0) Mean Corpuscular Hemoglobin 34.6 PG (27.0-34.0) 34.8 PG (27.0-34.0) Mean Corpuscular Hemoglobin Concent 33.1 % (32.0-36.0) 33.1 % (32.0-36.0) Red Cell Distribution Width 16.3 % (11.6-17.2) 16.8 % (11.6-17.2) Platelet Count 110 TH/MM3 (150-450) 125 TH/MM3 (150-450) Mean Platelet Volume 9.3 FL (7.0-11.0) 10.0 FL (7.0-11.0) Neutrophils (%) (Auto) 74.1 % (16.0-70.0) 71.7 % (16.0-70.0) Lymphocytes (%) (Auto) 15.5 % (9.0-44.0) 16.9 % (9.0-44.0) Monocytes (%) (Auto) 7.0 % (0.0-8.0) 7.5 % (0.0-8.0) Eosinophils (%) (Auto) 2.4 % (0.0-4.0) 2.7 % (0.0-4.0) Basophils (%) (Auto) 1.0 % (0.0-2.0) 1.2 % (0.0-2.0) Neutrophils # (Auto) 5.3 TH/MM3 (1.8-7.7) 5.9 TH/MM3 (1.8-7.7) Lymphocytes # (Auto) 1.1 TH/MM3 (1.0-4.8) 1.4 TH/MM3 (1.0-4.8) Monocytes # (Auto) 0.5 TH/MM3 (0-0.9) 0.6 TH/MM3 (0-0.9) Eosinophils # (Auto) 0.2 TH/MM3 (0-0.4) 0.2 TH/MM3 (0-0.4) Basophils # (Auto) 0.1 TH/MM3 (0-0.2) 0.1 TH/MM3 (0-0.2) CBC Comment DIFF FINAL DIFF FINAL Differential Comment Total Protein 6.9 GM/DL (6.4-8.2) Albumin 2.3 GM/DL (3.4-5.0) Alkaline Phosphatase 89 U/L (45-117) Aspartate Amino Transf (AST/SGOT) 42 U/L (15-37) Alanine Aminotransferase (ALT/SGPT) 11 U/L (12-78) Total Bilirubin 1.9 MG/DL (0.2-1.0) Test 07/15/17 08:50 Blood Urea Nitrogen 23 MG/DL (7-18) Creatinine 1.97 MG/DL (0.60-1.30) Random Glucose 93 MG/DL (74-106) Calcium Level 8.4 MG/DL (8.5-10.1) Sodium Level 134 MEQ/L (136-145) Potassium Level 3.5 MEQ/L (3.5-5.1) Chloride Level 102 MEQ/L (98-107) Carbon Dioxide Level 23.6 MEQ/L (21.0-32.0) Anion Gap 8 MEQ/L (5-15) Estimat Glomerular Filtration Rate 36 ML/MIN (>89) . Result Diagram: 07/14/17 1110 07/15/17 0850 Procedures 06/30/17: EGD . Assessment and Plan Disease Oriented Problem List: (1) Gastrointestinal bleed (2) Esophageal varices (3) Tobacco abuse (4) Jaundice (5) Gastritis (6) Menendez esophagus Symptom Scale: (1) Pain (2) Dyspnea (3) Encephalopathy Pertinent Non-Medical Issues Psychosocial:Patient is originally from [facility]. He moved to [place] approximately 20 years ago. 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 Patient is but has 4 adult children from this marriage. (Andrzej, Abbey, Nikko and Sergio). Apparently he also has a 14-year- old daughter from a different relationship; she lives in [place]. Spiritual: Pentecostalism ariana Legal: Patient is not . He has 4 adult children (Andrzej, Abbey, Nikko and Sergio). Per [place] statutes, in the absence of written advanced directives healthcare proxy decision making would fall to the majority of these 4 children. Son, Andrzej, was present at bedside. He states his siblings would not want to participate in medical decision making; he was willing to provide names and numbers so each could be given the opportunity to opt out of healthcare proxy decision-making. Messages were left for the other 3 siblings ( Abbey, Nikko, Sergio), awaiting return phone calls. Ethical issues impacting care: No known ethical issues impacting care at this time . . Important Contacts Major ([facility]), son: [phone] Teakacey Wilkinshowie, spouse/former spouse: [phone] Abbey, daughter [phone] Nikko, son, Sergio, son: [phone] . Prognosis Patient is a 51-year-old male with multiple comorbid conditions. He was admitted with suspected GI bleed, persistent ileus, liver cirrhosis/elevated LFTs, thrombocytopenia/coagulopathy and hepatic encephalopathy. Now being treated for pneumonia. He is not a candidate for liver transplant. He is at high risk for ongoing complications and decline. . Code Status: Full Code Plan * FULL CODE * Decision-making: Patient has waxing and waning neurological status. Suggest shared decision making with patient's son German Martin ([facility]). * Symptom management - encephalopathy: CT brain 07/01 revealed no acute intracranial findings. Hyperalbuminemia/liver cirrhosis/elevated LFTs. Patient on lactulose 30mL TID, rifaximin 550mg BID. No recommendations at this time. * Symptom management - dyspnea: Oxygen saturation in the mid to high 90s on 3L nasal cannula. Duonebs 1 ampule q 2hr PRN for shortness of breath. No recommendations. * Symptom management- pain: Multifactorial, secondary to ileus versus SBO, liver failure. Morphine 2mg q 3hr PRN for pain ordered, last dose 07/08/17 @ 0843 , tramadol 100mg q 4 hr PRN for pain, last dose 07/15/17 @ 0645, 3 doses utilized in the past 24 hours. * Palliative care will continue to follow this patient throughout his hospitalization to establish trust, assist with symptom management and clarification of medical treatment goals. . Attestation To help prompt me to consider important information that might be impacting today's encounter and assessment, information from prior notes written by myself or my colleagues may have been "brought forward" into today's note. My signature on this note, however, is an attestation that I personally performed the exam, history, and/or decision-making noted today, and, unless otherwise indicated, the interactions with patient, family, and staff as well as the review of records all occurred today. I also attest that the listed assessment and stated plan reflect my best clinical judgment today based on the combination of historical information, prior notes, and today's exam/ interactions. When time spent is documented, it refers only to time spent today by the signer, or if indicated, combined time spent today by collaborating physician/nurse practitioner. Dinora Lock Jul 15, 2017 12:48
--- NOTE | 2017-07-15 12:48 | HHI.HCPN ---
Reason for visit a. To assist with evaluation and management of symptoms including: pain, encephalopathy, and dyspnea b. To assist medical decision maker(s) with: better understanding of current medical conditions; weighing benefits/burdens of medical treatment options; making medical treatment decisions. . Subjective/Interval History Patient examined in room, no family at bedside. Patient is drowsy today, oriented x 2-3, intermittent confusion and nonsensical speech. Patient reports his abdomen is sore today, he stated after drinking the Go-Lytely yesterday he had several bowel movements, it is documented in the EMR that he had two BMs over the past 24 hours. His abdomen remains distended, firm, tender in all four quadrants. BUN/creatinine slowly improving, 23/1.97 today, LFTs also slowly improving today: Total bilirubin:1.9, AST:42, ALT:11. Family/friend interactions Called patient's son Major ([facility]) no availability to leave VM. Advance Directives Health Care Surrogate: Copy in medical record Advance Directive Specifics Date completed: 07/13/17 . Health Care Surrogate(s): German Martin (son) [phone] Jeanine Salgado (former spouse) [phone] Documented care wishes: No known documented care wishes. . Objective Vital Signs Date Time Temp Pulse Resp B/P (MAP) Pulse Ox O2 Delivery O2 Flow Rate FiO2 07/15/17 12:14 98.1 68 20 106/62 (77) 94 07/15/17 08:34 98.1 70 20 112/68 (83) 98 07/15/17 08:00 64 07/15/17 08:00 Nasal Cannula 2.00 07/15/17 05:30 97.6 70 18 108/67 (81) 98 07/15/17 00:30 97.3 66 16 89/53 (65) 95 07/14/17 22:00 68 07/14/17 21:00 Nasal Cannula 2.00 07/14/17 20:00 97.2 67 16 95/58 (70) 96 07/14/17 18:00 61 07/14/17 16:55 98.9 69 18 103/60 (74) 95 07/14/17 16:00 Nasal Cannula 2.00 07/14/17 12:42 97.7 62 16 97/55 (69) 97 Intake & Output 07/15/17 07/15/17 07:00 19:00 Intake Total 1000 ml Output Total 800 ml Balance 200 ml Intake Oral 1000 ml Output Urine Total 800 ml # Bowel Movements 2 . Physical Exam CONSTITUTIONAL/GENERAL: This is an adequately nourished, middle aged male in no acute distress. TUBES/LINES/DRAINS: Sanchez catheter, PIV 2 EYES: Pupils equal and round. No injection or drainage. ENT: Hearing grossly normal. Nose without bleeding or purulent drainage. CARDIOVASCULAR: Regular rate and rhythm without murmurs, gallops, or rubs. No JVD. Peripheral pulses symmetric. RESPIRATORY/CHEST: Breath sounds diminished bilaterally. GASTROINTESTINAL: Abdomen is distended; limited palpation secondary to tenderness. Active bowel sounds. GENITOURINARY: Condom catheter, draining dark oral urine. MUSCULOSKELETAL: Extremities without clubbing, cyanosis, or edema. No mottling or clubbing. NEUROLOGICAL: Alert and awake. Oriented x 3. Follows commands. PSYCHIATRIC: No obvious anxiety/depression. no apparent hallucinations or other psychotic thought process. . Diagnostic Tests Laboratory Laboratory Tests Test 07/13/17 09:11 07/13/17 20:26 07/14/17 06:40 07/14/17 11:10 Blood Urea Nitrogen 23 MG/DL (7-18) 24 MG/DL (7-18) Creatinine 2.40 MG/DL (0.60-1.30) 2.27 MG/DL (0.60-1.30) Random Glucose 80 MG/DL (74-106) 81 MG/DL (74-106) Calcium Level 8.0 MG/DL (8.5-10.1) 7.8 MG/DL (8.5-10.1) Sodium Level 134 MEQ/L (136-145) 133 MEQ/L (136-145) Potassium Level 3.9 MEQ/L (3.5-5.1) 4.3 MEQ/L (3.5-5.1) Chloride Level 104 MEQ/L (98-107) 103 MEQ/L (98-107) Carbon Dioxide Level 22.2 MEQ/L (21.0-32.0) 21.4 MEQ/L (21.0-32.0) Anion Gap 8 MEQ/L (5-15) 9 MEQ/L (5-15) Estimat Glomerular Filtration Rate 29 ML/MIN (>89) 31 ML/MIN (>89) White Blood Count 7.1 TH/MM3 (4.0-11.0) 8.3 TH/MM3 (4.0-11.0) Red Blood Count 2.80 MIL/MM3 (4.50-5.90) 2.98 MIL/MM3 (4.50-5.90) Hemoglobin 9.7 GM/DL (13.0-17.0) 10.3 GM/DL (13.0-17.0) Hematocrit 29.3 % (39.0-51.0) 31.2 % (39.0-51.0) Mean Corpuscular Volume 104.6 FL (80.0-100.0) 104.9 FL (80.0-100.0) Mean Corpuscular Hemoglobin 34.6 PG (27.0-34.0) 34.8 PG (27.0-34.0) Mean Corpuscular Hemoglobin Concent 33.1 % (32.0-36.0) 33.1 % (32.0-36.0) Red Cell Distribution Width 16.3 % (11.6-17.2) 16.8 % (11.6-17.2) Platelet Count 110 TH/MM3 (150-450) 125 TH/MM3 (150-450) Mean Platelet Volume 9.3 FL (7.0-11.0) 10.0 FL (7.0-11.0) Neutrophils (%) (Auto) 74.1 % (16.0-70.0) 71.7 % (16.0-70.0) Lymphocytes (%) (Auto) 15.5 % (9.0-44.0) 16.9 % (9.0-44.0) Monocytes (%) (Auto) 7.0 % (0.0-8.0) 7.5 % (0.0-8.0) Eosinophils (%) (Auto) 2.4 % (0.0-4.0) 2.7 % (0.0-4.0) Basophils (%) (Auto) 1.0 % (0.0-2.0) 1.2 % (0.0-2.0) Neutrophils # (Auto) 5.3 TH/MM3 (1.8-7.7) 5.9 TH/MM3 (1.8-7.7) Lymphocytes # (Auto) 1.1 TH/MM3 (1.0-4.8) 1.4 TH/MM3 (1.0-4.8) Monocytes # (Auto) 0.5 TH/MM3 (0-0.9) 0.6 TH/MM3 (0-0.9) Eosinophils # (Auto) 0.2 TH/MM3 (0-0.4) 0.2 TH/MM3 (0-0.4) Basophils # (Auto) 0.1 TH/MM3 (0-0.2) 0.1 TH/MM3 (0-0.2) CBC Comment DIFF FINAL DIFF FINAL Differential Comment Total Protein 6.9 GM/DL (6.4-8.2) Albumin 2.3 GM/DL (3.4-5.0) Alkaline Phosphatase 89 U/L (45-117) Aspartate Amino Transf (AST/SGOT) 42 U/L (15-37) Alanine Aminotransferase (ALT/SGPT) 11 U/L (12-78) Total Bilirubin 1.9 MG/DL (0.2-1.0) Test 07/15/17 08:50 Blood Urea Nitrogen 23 MG/DL (7-18) Creatinine 1.97 MG/DL (0.60-1.30) Random Glucose 93 MG/DL (74-106) Calcium Level 8.4 MG/DL (8.5-10.1) Sodium Level 134 MEQ/L (136-145) Potassium Level 3.5 MEQ/L (3.5-5.1) Chloride Level 102 MEQ/L (98-107) Carbon Dioxide Level 23.6 MEQ/L (21.0-32.0) Anion Gap 8 MEQ/L (5-15) Estimat Glomerular Filtration Rate 36 ML/MIN (>89) . Result Diagram: 07/14/17 1110 07/15/17 0850 Procedures 06/30/17: EGD . Assessment and Plan Disease Oriented Problem List: (1) Gastrointestinal bleed (2) Esophageal varices (3) Tobacco abuse (4) Jaundice (5) Gastritis (6) Menendez esophagus Symptom Scale: (1) Pain (2) Dyspnea (3) Encephalopathy Pertinent Non-Medical Issues Psychosocial:Patient is originally from [facility]. He moved to [place] approximately 20 years ago. 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 Patient is but has 4 adult children from this marriage. (Andrzej, Abbey, Nikko and Sergio). Apparently he also has a 14-year- old daughter from a different relationship; she lives in [place]. Spiritual: Mormon ariana Legal: Patient is not . He has 4 adult children (Andrzej, Abbey, Nikko and Sergio). Per [place] statutes, in the absence of written advanced directives healthcare proxy decision making would fall to the majority of these 4 children. Son, Andrzej, was present at bedside. He states his siblings would not want to participate in medical decision making; he was willing to provide names and numbers so each could be given the opportunity to opt out of healthcare proxy decision-making. Messages were left for the other 3 siblings ( Abbey, Nikko, Sergio), awaiting return phone calls. Ethical issues impacting care: No known ethical issues impacting care at this time . . Important Contacts Major ([facility]), son: [phone] Teakacey Wilkinshowie, spouse/former spouse: [phone] Abbey, daughter [phone] Nikko, son, Sergio, son: [phone] . Prognosis Patient is a 51-year-old male with multiple comorbid conditions. He was admitted with suspected GI bleed, persistent ileus, liver cirrhosis/elevated LFTs, thrombocytopenia/coagulopathy and hepatic encephalopathy. Now being treated for pneumonia. He is not a candidate for liver transplant. He is at high risk for ongoing complications and decline. . Code Status: Full Code Plan * FULL CODE * Decision-making: Patient has waxing and waning neurological status. Suggest shared decision making with patient's son German Martin ([facility]). * Symptom management - encephalopathy: CT brain 07/01 revealed no acute intracranial findings. Hyperalbuminemia/liver cirrhosis/elevated LFTs. Patient on lactulose 30mL TID, rifaximin 550mg BID. No recommendations at this time. * Symptom management - dyspnea: Oxygen saturation in the mid to high 90s on 3L nasal cannula. Duonebs 1 ampule q 2hr PRN for shortness of breath. No recommendations. * Symptom management- pain: Multifactorial, secondary to ileus versus SBO, liver failure. Morphine 2mg q 3hr PRN for pain ordered, last dose 07/08/17 @ 0843 , tramadol 100mg q 4 hr PRN for pain, last dose 07/15/17 @ 0645, 3 doses utilized in the past 24 hours. * Palliative care will continue to follow this patient throughout his hospitalization to establish trust, assist with symptom management and clarification of medical treatment goals. . Attestation To help prompt me to consider important information that might be impacting today's encounter and assessment, information from prior notes written by myself or my colleagues may have been "brought forward" into today's note. My signature on this note, however, is an attestation that I personally performed the exam, history, and/or decision-making noted today, and, unless otherwise indicated, the interactions with patient, family, and staff as well as the review of records all occurred today. I also attest that the listed assessment and stated plan reflect my best clinical judgment today based on the combination of historical information, prior notes, and today's exam/ interactions. When time spent is documented, it refers only to time spent today by the signer, or if indicated, combined time spent today by collaborating physician/nurse practitioner. iDnora Lock Jul 15, 2017 12:48
[2017-07-15] MEDS: cloNIDine HCL 0.2 MG TAB PO SCH ×2 (12:52→22:10)
--- NOTE | 2017-07-15 16:06 | HHI.GIFU ---
Subjective Remarks Pt resting in bed. "Am I still in the hospital?" Difficult to understand his speech but he does indicate that he had an extremely large BM and is passing gas. RN says he did have rather large bm in addition to several liquid stools last night. (Dilcia Morel) Objective Vitals I&O Vital Signs Date Time Temp Pulse Resp B/P (MAP) Pulse Ox O2 Delivery O2 Flow Rate FiO2 07/15/17 15:58 98.1 68 19 105/58 (74) 99 07/15/17 12:14 98.1 68 20 106/62 (77) 94 07/15/17 08:34 98.1 70 20 112/68 (83) 98 07/15/17 08:00 64 07/15/17 08:00 Nasal Cannula 2.00 07/15/17 05:30 97.6 70 18 108/67 (81) 98 07/15/17 00:30 97.3 66 16 89/53 (65) 95 07/14/17 22:00 68 07/14/17 21:00 Nasal Cannula 2.00 07/14/17 20:00 97.2 67 16 95/58 (70) 96 07/14/17 18:00 61 07/14/17 16:55 98.9 69 18 103/60 (74) 95 I/O 07/14/17 07/14/17 07/14/17 07/15/17 07/15/17 07/15/17 07:00 15:00 23:00 07:00 15:00 23:00 Intake Total 480 ml 240 ml 1000 ml 480 ml Output Total 700 ml 1750 ml 800 ml 850 ml Balance -700 ml -1270 ml 240 ml 200 ml -370 ml Intake Oral 480 ml 240 ml 1000 ml 480 ml Output Urine Total 700 ml 1500 ml 800 ml 850 ml Stool Total 250 ml # Bowel Movements 2 2 Laboratory Laboratory Tests Test 07/15/17 08:50 Blood Urea Nitrogen 23 Creatinine 1.97 Random Glucose 93 Calcium Level 8.4 Sodium Level 134 Potassium Level 3.5 Chloride Level 102 Carbon Dioxide Level 23.6 Anion Gap 8 Estimat Glomerular Filtration Rate 36 Date/Time Source Procedure Growth Status 07/04/17 13:00 Blood Peripheral Aerobic Blood Culture - Final NO GROWTH IN 5 DAYS Complete 07/04/17 13:00 Blood Peripheral Anaerobic Blood Culture - Final NO GROWTH IN 5 DAYS Complete 07/04/17 10:00 Sputum Expectorated Sputum Gram Stain - Final Complete 07/04/17 10:00 Sputum Expectorated Sputum Sputum Culture - Final HEAVY GROWTH NORMAL RESPIRATORY BRENNAN Complete 07/09/17 12:38 Urine Catheterized Urine Urine Culture - Final NO GROWTH IN 48 HOURS. Complete Physical Exam HEENT: Normocephalic; atraumatic; + jaundice. CHEST: Resp. even/shallow, diminished CARDIAC: RRR ABDOMEN: Abdomen tympanic, semifirm, distended, mild diffuse tenderness; bowel sounds present x 4. EXTREMITIES: No clubbing, cyanosis, or edema. SKIN: + jaundice. 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 (Dilcia Morel) Assessment and Plan Plan ASSESSMENT: - Persistent ileus. CT scan abdomen and pelvis (06/29/17)----> Hepatosplenomegaly and varices noted as above. Atherosclerosis. Abnormal diffuse heterogeneous appearance of the liver which may be related to either marked hepatic steatosis in an inhomogeneous fashion versus steatosis and underlying diffuse liver masses. An MRI of the abdomen with and without contrast may be helpful for further evaluation of this finding. Pt states this pain began after a hernia repair in July of 2016 and is intermittent at times, but usually more constant. S/P Fleets enema. KUB (07/07/17)---> No significant change mild to moderate bowel distention. S/P SBFT (07/10/17)---> Diffuse small bowel dilatation and delayed small bowel transit time of approximately 5-6 hours without focal transition point, intraluminal filling defect or gross mass. Findings are most consistent with moderate adynamic ileus. Nurse reports that he put out 2,000cc of liquid stool today. S/P Relistor (07/09). Reglan, Miralax. Lactulose is on hold. Pt with persistent distention. KUB ( 07/14/17)---> Diffuse gaseous distention of the small and large bowel suggesting adynamic ileus. Reglan, Miralax, Bethanechol, Amitiza was ordered, but not available. Still with persistent large and small bowel ileus- will d/c rectal tube and give enemas. Golytely 1/2 gallon. - Questionable upper GI bleeding. Pt presented to ER with nausea/vomiting with dark emesis and occasional red blood and intermittent dark stools. Not actively bleeding. Of note, does report that he has had nose bleeds x 2 days. However, he does have evidence of liver cirrhosis and varcies on CT imaging. EGD/Colonoscopy (12/24/15)---> There was a 5 cm segment of suspected Menendez's esophagus found in the distal esophagus, multiple biopsies were performed, there was erythematous gastritis in the entire examined stomach; multiple biopsies were performed, normal duodenal mucosa in the bulb and second portion of the duodenum, retroflexion was performed and was normal; the colon mucosa was otherwise normal, retroflexed views revealed no abnormalities. Pathology with gastric antral mucosal biopsies with histopathologic features consistent with chemical gastropathy, as may bee seen with bile reflux, non-steroidal anti-inflammatory drugs or other drug induced disease negative for intestinal metaplasia and dysplasia, farhat stain negative for helicobacter. GE mucosal biopsies with chronic inflammatory gastric changes consistent with reflux exhibiting extensive intestinal metaplasia, negative for dysplasia. 1. 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 Gastropathy and mild gastritis 3. Moderate duodenitis 4. No active bleeding and no sign of old bleeding 5. Retroflexed views revealed no abnormalities PPI. No active bleeding. HH stable at 10.3/31.2. - Liver cirrhosis/Elevated LFTs. Pt reports that he has been told that his liver was enlarged, but never told that he had liver cirrhosis. He continues to drink ETOH, stating [address] has findings of varcies, he has thrombocytopenia, coagulopathy, hypoalbuminemia, all of which support a dx of liver cirrhosis. MRI (07/02/17)---> hepatomegaly and hepatic steatosis, no focal mass identified. Moderate splenomegaly, small amount of of ascites. Small bilateral pleural effusion. Will check liver workup to r/o other underlying liver disease- JOSE negative, AMA <20.0, ASMA negative, AFP 4.6. ALpha 1 Antitrypsin 221, Ceruloplasmin 37, Ferritin 94, Iron saturation 14.0%. Hepatitis profile neg. This is likely related to ETOH. DF 6.0. MELD 13. - Diarrhea- Negative for C-diff. - Menendez's Esophagus, GERD. Takes ranitidine as needed at home, has daily symptoms. EGD as above. PPI - Thrombocytopenia, Coagulopathy. Likely related to cirrhosis. - Anemia, macrocytic. HH stable, Folate 17.2, B12 1711. - Hepatic encephalopathy, Ammonia 66. Lactulose on hold for worsening distention. Getting Xifaxan. Still very lethargic, confused, but does arouse and follows commands once awake. - ETOH abuse. DT precautions per attending. - DON, worsening renal function. Renal following, most likely has ATN causing DON. - Resp. Insufficiency/Asthma, per attending. - Depression, Hyperlipidemia. Per attending. 07/15/17 - had quite large BM and additional liquid stool last night, per nursing staff. + flatus. no labs today. still confused PLAN: - Full liquid diet - Cont. Reglan - PPI - Cont. Xifaxan - Cont. Bethanechol - Monitor labs - Supportive care - PT seen and examined by Dr. Cowan and myself and this note is written on his behalf (Dilcia Morel) Physician Comments Seen and examined with GIOVANNA, doing better today after large BM. Continue bowel regimen. (Tanya Cowan MD) Dilcia Morel Jul 15, 2017 16:06 Tanya Cowan MD Jul 15, 2017 16:54
[2017-07-16] VITALS (8 sets, daily range): BP systolic 106–125; BP diastolic 59–76; PULSE 64–74; RESP 16–20; TEMP 97.5–98.5; O2SAT 96–100
[2017-07-16] MEDS: INSULIN NovoLIN REGULAR SUPPLEMENTAL SCALE SQ SCH (02:00)
[2017-07-16] MEDS: cloNIDine HCL 0.2 MG TAB PO SCH ×3 (05:35→22:20)
[2017-07-16] MEDS: BETHANECHOL CHL 25 MG TAB PO SCH ×3 (05:36→22:20)
[2017-07-16] MEDS: METOCLOPRAMIDE HCL 10 MG/2 ML VIAL IV PUSH SCH ×3 (05:49→22:21)
[2017-07-16] MEDS: POLYETHYLENE GLYCOL 17 GM PKG PO SCH (09:00)
[2017-07-16] MEDS: DOCUSATE SODIUM 50 MG/SENNA 8.6 MG TAB PO SCH ×2 (09:00→20:36)
[2017-07-16] MEDS: REMOVE OLD PATCH T-DERMAL SCH (09:00)
[2017-07-16] MEDS: RIFAXIMIN 550 MG TAB PO SCH ×2 (09:13→20:35)
[2017-07-16] MEDS: guaiFENesin E.R. 600 MG TAB PO SCH ×2 (09:13→20:35)
[2017-07-16] MEDS: traMADol HCL 50 MG TAB PO PRN ×2 (09:13→22:20)
[2017-07-16] MEDS: NICOTINE 14 MG/24 HR PATCH T-DERMAL SCH (09:13)
[2017-07-16] MEDS: PANTOPRAZOLE SODIUM 40 MG VIAL IV SCH ×2 (09:13→20:35)
[2017-07-16] MEDS: SODIUM CHLORIDE 0.9% FLUSH 10 ML FLUSH IV FLUSH SCH ×2 (09:13→20:36)
[2017-07-16] MEDS: THIAMINE HCL 100 MG TAB PO SCH (09:13)
--- NOTE | 2017-07-16 09:19 | HHI.PR ---
Subjective Remarks Follow up acute kidney injury, ileus. The patient states that he feels a little better today. Has had multiple bowel movements overnight. Objective Vitals Vital Signs Date Time Temp Pulse Resp B/P (MAP) Pulse Ox O2 Delivery O2 Flow Rate FiO2 07/16/17 07:44 98.1 64 20 107/68 (81) 100 07/16/17 05:21 98.0 67 16 109/66 (80) 96 07/16/17 01:00 72 07/16/17 00:05 98.2 72 18 106/59 (75) 96 07/15/17 22:10 75 117/78 (91) 07/15/17 21:00 Nasal Cannula 3.00 07/15/17 20:39 98.0 72 18 105/58 (74) 97 07/15/17 15:58 98.1 68 19 105/58 (74) 99 07/15/17 12:14 98.1 68 20 106/62 (77) 94 I/O 07/15/17 07/15/17 07/15/17 07/16/17 07/16/17 07/16/17 07:00 15:00 23:00 07:00 15:00 23:00 Intake Total 1000 ml 480 ml Output Total 800 ml 850 ml 900 ml Balance 200 ml -370 ml -900 ml Intake Oral 1000 ml 480 ml Output Urine Total 800 ml 850 ml 900 ml # Bowel Movements 2 2 3 Result Diagram: 07/14/17 1110 07/15/17 0850 Imaging Last Impressions Abdomen X-Ray 07/14/17 0600 Signed Impressions: Service Date/Time: Friday, July 14, 2017 07:47 - CONCLUSION: 1. Diffuse gaseous distention of the small and large bowel suggesting adynamic ileus. Franc Nelson MD Small Bowel X-Ray 07/10/17 0000 Signed Impressions: Service Date/Time: Monday, July 10, 2017 08:26 - CONCLUSION: 1. Diffuse small bowel dilatation and delayed small bowel transit time of approximately 5- 6 hours without focal transition point, intraluminal filling defect or gross mass. Findings are most consistent with moderate adynamic ileus. Bryson Downing MD Renal Ultrasound 07/10/17 0000 Signed Impressions: Service Date/Time: Monday, July 10, 2017 18:25 - CONCLUSION: 1. Unremarkable renal ultrasound. Mild ascites. Albert Walden MD Chest X-Ray 07/09/17 0600 Signed Impressions: Service Date/Time: July 06:10 - CONCLUSION: 1. Minimal basilar dependent density. Differential diagnosis includes atelectasis. Findings similar to prior exam. Albert Walden MD Chest CT 07/05/17 1635 Signed Impressions: Service Date/Time: Wednesday, July 05, 2017 18:11 - CONCLUSION: 1. Segmental consolidation with volume loss medial right lower lung. 2. Atelectasis or basilar consolidation left lower lung. 3. Mild amount of ascites. Caesar Ann MD Abdomen MRI 07/02/17 0000 Signed Impressions: Service Date/Time: June 16:34 - CONCLUSION: 1. Hepatomegaly and hepatic steatosis. No focal mass identified. 2. Moderate splenomegaly. 3. Small amount of ascites. 4. Small bilateral pleural effusions. Wilbert Howe MD Ankle X-Ray 07/01/17 0000 Signed Impressions: Service Date/Time: Saturday, July 01, 2017 10:22 - CONCLUSION: Soft tissue mass noted to be fluid filled on ultrasound 09/10/2012. Colten Nelson MD FACR Head CT 06/30/17 0000 Signed Impressions: Service Date/Time: Saturday, July 01, 2017 02:24 - CONCLUSION: 1. No acute intracranial abnormalities. Previous fixation left maxillary sinus. Albert Walden MD Cervical Spine CT 06/30/17 0000 Signed Impressions: Service Date/Time: Saturday, July 01, 2017 02:24 - CONCLUSION: Normal examination for a patient of this age. Albert Walden MD Abdomen/Pelvis CT 06/29/17 0000 Signed Impressions: Service Date/Time: Thursday, June 29, 2017 12:52 - CONCLUSION: 1. Hepatosplenomegaly and varices noted as above. 2. Atherosclerosis. 3. Abnormal diffuse heterogeneous appearance of the liver which may be related to either marked hepatic steatosis in an inhomogeneous fashion versus steatosis and underlying diffuse liver masses. An MRI of the abdomen with and without contrast may be helpful for further evaluation of this finding. Navjot Chirinos MD Objective Remarks General: No acute distress. Heart: Regular rate and rhythm. No murmur. Lungs: Clear to auscultation bilaterally. No wheezes, rales, or rhonchi. Breathing is nonlabored. Abdomen: Soft, mild diffuse tenderness without rebound or guarding, mildly distended. Positive bowel sounds. Extremities: No lower extremity edema. SCDs. Psych: Alert, answers questions appropriately. 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 Ileus: Improved. Patient having multiple bowel movements overnight. Appreciate GI recommendations. 2. Alcohol withdrawal: Tapered off Librium. Continue multivitamin, folic acid, thiamine. 3. Acute kidney injury: Nonoliguric. Labs are pending today. Monitor BUN and creatinine. Renal ultrasound negative. Appreciate nephrology recommendations. 4. Hepatic encephalopathy: Continue lactulose, Xifaxan. 5. GI bleed: EGD on 06/30/17 showed mild gastritis, duodenitis. Continue Protonix. 6. Possible aspiration pneumonia: Status post treatment with Augmentin. Appreciate pulmonology recommendations. Oxygen, bronchodilators as needed. 7. Appreciate palliative care assistance. 8. DVT prophylaxis: DRU Salmon. Ozzie Robbins MD Jul 16, 2017 09:19
[2017-07-16 10:11] LABS: BICARBONATE 24.3 MEQ/L (21.0-32.0); CALCIUM 7.9 MG/DL (8.5-10.1); CREATININE 1.87 MG/DL (0.60-1.30)
--- NOTE | 2017-07-16 10:37 | HHI.GIFU ---
Subjective Remarks Resting in bed. More alert today. States he had a "huge bowel movement" just now. States he is very weak and not able to stand well. States he is sick of the liquid diet and does not want anymore grits (Yoli Koenig) Objective Vitals I&O Vital Signs Date Time Temp Pulse Resp B/P (MAP) Pulse Ox O2 Delivery O2 Flow Rate FiO2 07/16/17 10:18 74 07/16/17 07:44 98.1 64 20 107/68 (81) 100 07/16/17 05:21 98.0 67 16 109/66 (80) 96 07/16/17 01:00 72 07/16/17 00:05 98.2 72 18 106/59 (75) 96 07/15/17 22:10 75 117/78 (91) 07/15/17 21:00 Nasal Cannula 3.00 07/15/17 20:39 98.0 72 18 105/58 (74) 97 07/15/17 15:58 98.1 68 19 105/58 (74) 99 07/15/17 12:14 98.1 68 20 106/62 (77) 94 I/O 07/15/17 07/15/17 07/15/17 07/16/17 07/16/17 07/16/17 07:00 15:00 23:00 07:00 15:00 23:00 Intake Total 1000 ml 480 ml Output Total 800 ml 850 ml 900 ml Balance 200 ml -370 ml -900 ml Intake Oral 1000 ml 480 ml Output Urine Total 800 ml 850 ml 900 ml # Bowel Movements 2 2 3 Laboratory Laboratory Tests Test 07/16/17 09:18 Blood Urea Nitrogen 20 Creatinine 1.87 Random Glucose 82 Calcium Level 7.9 Sodium Level 136 Potassium Level 3.6 Chloride Level 104 Carbon Dioxide Level 24.3 Anion Gap 8 Estimat Glomerular Filtration Rate 38 Date/Time Source Procedure Growth Status 07/04/17 13:00 Blood Peripheral Aerobic Blood Culture - Final NO GROWTH IN 5 DAYS Complete 07/04/17 13:00 Blood Peripheral Anaerobic Blood Culture - Final NO GROWTH IN 5 DAYS Complete 07/04/17 10:00 Sputum Expectorated Sputum Gram Stain - Final Complete 07/04/17 10:00 Sputum Expectorated Sputum Sputum Culture - Final HEAVY GROWTH NORMAL RESPIRATORY BRENNAN Complete 07/09/17 12:38 Urine Catheterized Urine Urine Culture - Final NO GROWTH IN 48 HOURS. Complete Imaging Last Impressions Abdomen X-Ray 07/14/17 0600 Signed Impressions: Service Date/Time: Friday, July 14, 2017 07:47 - CONCLUSION: 1. Diffuse gaseous distention of the small and large bowel suggesting adynamic ileus. Franc Nelson MD Small Bowel X-Ray 07/10/17 0000 Signed Impressions: Service Date/Time: Monday, July 10, 2017 08:26 - CONCLUSION: 1. Diffuse small bowel dilatation and delayed small bowel transit time of approximately 5- 6 hours without focal transition point, intraluminal filling defect or gross mass. Findings are most consistent with moderate adynamic ileus. Bryson Downing MD Renal Ultrasound 07/10/17 0000 Signed Impressions: Service Date/Time: Monday, July 10, 2017 18:25 - CONCLUSION: 1. Unremarkable renal ultrasound. Mild ascites. Albert Walden MD Chest X-Ray 07/09/17 0600 Signed Impressions: Service Date/Time: July 06:10 - CONCLUSION: 1. Minimal basilar dependent density. Differential diagnosis includes atelectasis. Findings similar to prior exam. Albert Walden MD Chest CT 07/05/17 1635 Signed Impressions: Service Date/Time: Wednesday, July 05, 2017 18:11 - CONCLUSION: 1. Segmental consolidation with volume loss medial right lower lung. 2. Atelectasis or basilar consolidation left lower lung. 3. Mild amount of ascites. Caesar Ann MD Abdomen MRI 07/02/17 0000 Signed Impressions: Service Date/Time: June 16:34 - CONCLUSION: 1. Hepatomegaly and hepatic steatosis. No focal mass identified. 2. Moderate splenomegaly. 3. Small amount of ascites. 4. Small bilateral pleural effusions. Wilbert Howe MD Ankle X-Ray 07/01/17 0000 Signed Impressions: Service Date/Time: Saturday, July 01, 2017 10:22 - CONCLUSION: Soft tissue mass noted to be fluid filled on ultrasound 09/10/2012. Colten Nelson MD FACR Head CT 06/30/17 0000 Signed Impressions: Service Date/Time: Saturday, July 01, 2017 02:24 - CONCLUSION: 1. No acute intracranial abnormalities. Previous fixation left maxillary sinus. Albert Walden MD Cervical Spine CT 06/30/17 0000 Signed Impressions: Service Date/Time: Saturday, July 01, 2017 02:24 - CONCLUSION: Normal examination for a patient of this age. Albert Walden MD Abdomen/Pelvis CT 06/29/17 0000 Signed Impressions: Service Date/Time: Thursday, June 29, 2017 12:52 - CONCLUSION: 1. Hepatosplenomegaly and varices noted as above. 2. Atherosclerosis. 3. Abnormal diffuse heterogeneous appearance of the liver which may be related to either marked hepatic steatosis in an inhomogeneous fashion versus steatosis and underlying diffuse liver masses. An MRI of the abdomen with and without contrast may be helpful for further evaluation of this finding. Navjot Chirinos MD Physical Exam HEENT: Normocephalic; atraumatic; + jaundice. CHEST: Resp. even/shallow, diminished CARDIAC: RRR ABDOMEN: Abdomen soft, distended, nontender; bowel sounds present x 4. EXTREMITIES: No clubbing, cyanosis, or edema. SKIN: + jaundice. 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 IMPROVED. CT scan abdomen and pelvis (06/29/17)----> Hepatosplenomegaly and varices noted as above. Atherosclerosis. Abnormal diffuse heterogeneous appearance of the liver which may be related to either marked hepatic steatosis in an inhomogeneous fashion versus steatosis and underlying diffuse liver masses. An MRI of the abdomen with and without contrast may be helpful for further evaluation of this finding. Pt states this pain began after a hernia repair in July of 2016 and is intermittent at times, but usually more constant. S/P Fleets enema. KUB (07/07/17)---> No significant change mild to moderate bowel distention. S/P SBFT (07/10/17)---> Diffuse small bowel dilatation and delayed small bowel transit time of approximately 5-6 hours without focal transition point, intraluminal filling defect or gross mass. Findings are most consistent with moderate adynamic ileus. Nurse reports that he put out 2,000cc of liquid stool today. S/P Relistor (07/09). Reglan, Miralax. Lactulose is on hold. Pt with persistent distention. KUB ( 07/14/17)---> Diffuse gaseous distention of the small and large bowel suggesting adynamic ileus. Reglan, Miralax, Bethanechol, Amitiza was ordered, but not available. Rectal tube was d/c'd. S/P Golytely. Multiple large bowel movements. Abdomen softer, less distended. Cont. Reglan, bethanechol, miralax. Pt needs to get oob. Will ask for him to get oob to chair for all meals. - Questionable upper GI bleeding. Pt presented to ER with nausea/vomiting with dark emesis and occasional red blood and intermittent dark stools. Not actively bleeding. Of note, does report that he has had nose bleeds x 2 days. However, he does have evidence of liver cirrhosis and varcies on CT imaging. EGD/Colonoscopy (12/24/15)---> There was a 5 cm segment of suspected Menendez's esophagus found in the distal esophagus, multiple biopsies were performed, there was erythematous gastritis in the entire examined stomach; multiple biopsies were performed, normal duodenal mucosa in the bulb and second portion of the duodenum, retroflexion was performed and was normal; the colon mucosa was otherwise normal, retroflexed views revealed no abnormalities. Pathology with gastric antral mucosal biopsies with histopathologic features consistent with chemical gastropathy, as may bee seen with bile reflux, non-steroidal anti-inflammatory drugs or other drug induced disease negative for intestinal metaplasia and dysplasia, farhat stain negative for helicobacter. GE mucosal biopsies with chronic inflammatory gastric changes consistent with reflux exhibiting extensive intestinal metaplasia, negative for dysplasia. 1. 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 Gastropathy and mild gastritis 3. Moderate duodenitis 4. No active bleeding and no sign of old bleeding 5. Retroflexed views revealed no abnormalities PPI. No active bleeding. HH stable. Will recheck in am. - Liver cirrhosis/Elevated LFTs. Pt reports that he has been told that his liver was enlarged, but never told that he had liver cirrhosis. He continues to drink ETOH, stating [address] has findings of varcies, he has thrombocytopenia, coagulopathy, hypoalbuminemia, all of which support a dx of liver cirrhosis. MRI (07/02/17)---> hepatomegaly and hepatic steatosis, no focal mass identified. Moderate splenomegaly, small amount of of ascites. Small bilateral pleural effusion. Will check liver workup to r/o other underlying liver disease- JOSE negative, AMA <20.0, ASMA negative, AFP 4.6. ALpha 1 Antitrypsin 221, Ceruloplasmin 37, Ferritin 94, Iron saturation 14.0%. Hepatitis profile neg. This is likely related to ETOH. DF 6.0. MELD 13. LFTs improving. - Menendez's Esophagus, GERD. Takes ranitidine as needed at home, has daily symptoms. EGD as above. PPI - Thrombocytopenia, Coagulopathy. Likely related to cirrhosis. - Anemia, macrocytic. HH stable, Folate 17.2, B12 1711. - Hepatic encephalopathy, Ammonia 66. Lactulose on hold for worsening distention. Getting Xifaxan. Improved. More alert today. - ETOH abuse. DT precautions per attending. - DON. Renal following, most likely has ATN causing DON. Creat 1.87 today. - Resp. Insufficiency/Asthma, improved per attending. - Depression, Hyperlipidemia. Per attending. PLAN: - Heart healthy low salt soft diet - OOB to chair for all meals - Cont. Reglan - Cont. Miralax - Cont. Bethanechol - Cont. PPI - Cont. Xifaxan - CBC, CMP in am - Lactulose is on hold for abdominal distention, if continues to improve, will possibly restart tomorrow - Supportive care - Further recommendations to follow based on results of above - PT seen and examined by Dr. Cowan and myself and this note is written on his behalf (Yoli Koenig) Physician Comments Seen and examined with GIOVANNA, illeus resolving. Advance diet (Tanya Cowna MD) Yoli Koenig Jul 16, 2017 10:37 Tayna Cowan MD Jul 16, 2017 14:59
--- NOTE | 2017-07-16 15:44 | HHI.NPPN ---
Subjective History of Present Illness 51-year-old male with a past medical history of cirrhosis of the liver, bronchial asthma, depression, hyperlipidemia, pancreatitis, Menendez's esophagus, chronic abdominal pain, possible history of gastric ulcer and varices, questionable esophageal cancer who was admitted with abdominal pain and distension. I was called to see the patient because of elevated BUN and creatinine. Additional Remarks Patient is alert, no SOB, started eating, has mild lower abd. pain. Review of Systems General Constitutional: Fatigue Respiratory Lungs: Wheeze Cardiovascular Cardiac: CORTES Gastrointestinal Gastrointestinal: Abdominal Pain Objective Data Data 07/16/17 07/17/17 19:00 07:00 Intake Total 600 ml Output Total 650 ml Balance -50 ml Intake Oral 600 ml Output Urine Total 650 ml # Bowel Movements 3 Vital Signs Date Time Temp Pulse Resp B/P (MAP) Pulse Ox O2 Delivery O2 Flow Rate FiO2 07/16/17 12:09 97.5 71 20 112/68 (83) 97 07/16/17 10:18 74 07/16/17 07:44 98.1 64 20 107/68 (81) 100 07/16/17 05:21 98.0 67 16 109/66 (80) 96 07/16/17 01:00 72 07/16/17 00:05 98.2 72 18 106/59 (75) 96 07/15/17 22:10 75 117/78 (91) 07/15/17 21:00 Nasal Cannula 3.00 07/15/17 20:39 98.0 72 18 105/58 (74) 97 07/15/17 15:58 98.1 68 19 105/58 (74) 99 -: 07/14/17 1110 07/16/17 0918 Physical Exam General Appearance: No Acute Distress, Anxious Throat Throat Exam: Oral Mucosa [place] & Moist Neck Neck Exam: Neck Supple Pulmonary Resp Exam: Breath Sounds Equal, Rhonchi, Decreased Bases Cardiology CV Exam: Regular, Normal Sinus Rhythm Gastrointestinal/Abdomen GI Exam: Soft, Bowel Sounds Present, Distended Extremeties Extremities Exam: Trace Edema Neurologic Neuro Exam: Alert, Awake, Oriented Assessment/Plan Assessment Summary: DON/Acute Renal Failure Problem List: (1) Acute kidney injury ICD Codes: N17.9 - Acute kidney failure, unspecified (2) Encephalopathy ICD Codes: G93.40 - Encephalopathy, unspecified (3) Anemia ICD Codes: D64.9 - Anemia, unspecified Status: Acute (4) Jaundice ICD Codes: R17 - Unspecified jaundice (5) Gastritis ICD Codes: K29.70 - Gastritis, unspecified, without bleeding Status: Acute (6) 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 Normal size kidneys and has Normal Na. in the urine. Urine Eosinophils is negative. Most likely has ATN causing DON. Has elevated Bilirubin. BP is stable, Creatinine is improving, now 1.87 Follow the urine out put and BMP. Avoid Nephrotoxins. Encourage oral intake. Linette Guerra MD Jul 16, 2017 15:43
[2017-07-17] VITALS (7 sets, daily range): BP systolic 97–125; BP diastolic 55–76; PULSE 64–80; RESP 18–19; TEMP 97.8–98.8; O2SAT 94–97
[2017-07-17] MEDS: BETHANECHOL CHL 25 MG TAB PO SCH ×3 (06:30→21:52)
[2017-07-17] MEDS: METOCLOPRAMIDE HCL 10 MG/2 ML VIAL IV PUSH SCH ×3 (06:30→21:55)
[2017-07-17] MEDS: cloNIDine HCL 0.2 MG TAB PO SCH ×3 (06:30→21:52)
[2017-07-17] MEDS: traMADol HCL 50 MG TAB PO PRN ×3 (06:43→21:53)
[2017-07-17 07:25] LABS: AUTOMATED NEUTROPHIL # 4.8 TH/MM3 (1.8-7.7); BASOPHIL # 0.1 TH/MM3 (0-0.2); BASOPHIL % 0.8 % (0.0-2.0); EOSINOPHIL # 0.1 TH/MM3 (0-0.4); EOSINOPHIL % 2.2 % (0.0-4.0); HEMATOCRIT 30.3 % (39.0-51.0); HEMOGLOBIN 10.2 GM/DL (13.0-17.0); LYMPH % 15.6 % (9.0-44.0); MEAN CELL VOLUME 103.8 FL (80.0-100.0); MEAN CORPUSCULAR HEMOGLOBIN 35.1 PG (27.0-34.0); MEAN CORPUSCULAR HGB CONC 33.8 % (32.0-36.0); MEAN PLATELET VOLUME 9.1 FL (7.0-11.0); MONO % 6.9 % (0.0-8.0); MONOCYTE # 0.4 TH/MM3 (0-0.9); NEUT % 74.5 % (16.0-70.0); PLATELET COUNT 106 TH/MM3 (150-450); RED BLOOD COUNT 2.92 MIL/MM3 (4.50-5.90); RED CELL DISTRIBUTION WIDTH 16.2 % (11.6-17.2); WHITE BLOOD COUNT 6.5 TH/MM3 (4.0-11.0)
[2017-07-17] MEDS: DOCUSATE SODIUM 50 MG/SENNA 8.6 MG TAB PO SCH ×2 (07:58→21:00)
[2017-07-17] MEDS: POLYETHYLENE GLYCOL 17 GM PKG PO SCH (07:59)
[2017-07-17 08:00] LABS: BLOOD UREA NITROGEN 17 MG/DL (7-18); CREATININE 1.64 MG/DL (0.60-1.30); GLOMERULAR FILTRATION RATE 45 ML/MIN (>89); GLUCOSE,RANDOM 82 MG/DL (74-106); TOTAL PROTEIN 6.6 GM/DL (6.4-8.2)
[2017-07-17] MEDS: NICOTINE 14 MG/24 HR PATCH T-DERMAL SCH (08:00)
[2017-07-17] MEDS: PANTOPRAZOLE SODIUM 40 MG VIAL IV SCH ×2 (08:00→21:54)
[2017-07-17] MEDS: THIAMINE HCL 100 MG TAB PO SCH (08:00)
[2017-07-17] MEDS: REMOVE OLD PATCH T-DERMAL SCH (08:00)
[2017-07-17] MEDS: SODIUM CHLORIDE 0.9% FLUSH 10 ML FLUSH IV FLUSH SCH ×2 (08:00→21:00)
[2017-07-17] MEDS: RIFAXIMIN 550 MG TAB PO SCH ×2 (08:00→21:52)
[2017-07-17] MEDS: guaiFENesin E.R. 600 MG TAB PO SCH ×2 (08:00→21:52)
[2017-07-17 08:01] LABS: ALBUMIN 2.1 GM/DL (3.4-5.0); ALKALINE PHOSPHATASE 92 U/L (45-117); ALT (GPT) 11 U/L (12-78); AST (GOT) 35 U/L (15-37); BICARBONATE 25.1 MEQ/L (21.0-32.0); CALCIUM 7.9 MG/DL (8.5-10.1); CHLORIDE 104 MEQ/L (98-107); SODIUM (NA) 136 MEQ/L (136-145); TOTAL BILIRUBIN ADULT 1.5 MG/DL (0.2-1.0)
--- NOTE | 2017-07-17 10:39 | HHI.NPPN ---
Subjective History of Present Illness 51-year-old male with a past medical history of cirrhosis of the liver, bronchial asthma, depression, hyperlipidemia, pancreatitis, Menendez's esophagus, chronic abdominal pain, possible history of gastric ulcer and varices, questionable esophageal cancer who was admitted with abdominal pain and distension. I was called to see the patient because of elevated BUN and creatinine. Additional Remarks Patient is alert, no SOB, has mild lower abd. pain, clinically same. Review of Systems General Constitutional: Fatigue Respiratory Lungs: Wheeze Cardiovascular Cardiac: CORTES Gastrointestinal Gastrointestinal: Abdominal Pain Objective Data Data Vital Signs Date Time Temp Pulse Resp B/P (MAP) Pulse Ox O2 Delivery O2 Flow Rate FiO2 07/17/17 10:10 72 07/17/17 08:00 97.8 69 18 112/64 (80) 96 07/17/17 04:30 98.8 74 18 120/66 (84) 97 07/17/17 00:00 98.1 75 18 125/76 (92) 96 07/16/17 21:30 98.5 74 17 123/68 (86) 96 07/16/17 16:00 98.1 70 20 125/76 (92) 97 07/16/17 12:09 97.5 71 20 112/68 (83) 97 -: 07/17/17 0602 07/17/17 0602 Physical Exam General Appearance: No Acute Distress, Anxious Throat Throat Exam: Oral Mucosa [place] & Moist Neck Neck Exam: Neck Supple Pulmonary Resp Exam: Breath Sounds Equal, Rhonchi, Decreased Bases Cardiology CV Exam: Regular, Normal Sinus Rhythm Gastrointestinal/Abdomen GI Exam: Soft, Bowel Sounds Present, Distended Extremeties Extremities Exam: Trace Edema Neurologic Neuro Exam: Alert, Awake, Oriented Assessment/Plan Assessment Summary: DON/Acute Renal Failure Problem List: (1) Acute kidney injury ICD Codes: N17.9 - Acute kidney failure, unspecified (2) Encephalopathy ICD Codes: G93.40 - Encephalopathy, unspecified (3) Anemia ICD Codes: D64.9 - Anemia, unspecified Status: Acute (4) Jaundice ICD Codes: R17 - Unspecified jaundice (5) Gastritis ICD Codes: K29.70 - Gastritis, unspecified, without bleeding Status: Acute (6) 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 Normal size kidneys and has Normal Na. in the urine. Urine Eosinophils is negative. Most likely has ATN causing DON. Has elevated Bilirubin. BP is stable, Creatinine is improving,now 1.6, his baseline is normal. Follow the urine out put and BMP. Avoid Nephrotoxins. Encourage oral intake. Linette Guerra MD Jul 17, 2017 10:39
--- NOTE | 2017-07-17 13:50 | HHI.PR ---
Subjective Remarks Follow up ileus, acute kidney injury, weakness. Patient states that he still feels very weak. He reports sharp abdominal pain. No BM today. Does report flatus. Objective Vitals Vital Signs Date Time Temp Pulse Resp B/P (MAP) Pulse Ox O2 Delivery O2 Flow Rate FiO2 07/17/17 12:00 98.3 64 18 97/55 (69) 96 07/17/17 10:10 72 07/17/17 08:00 97.8 69 18 112/64 (80) 96 07/17/17 04:30 98.8 74 18 120/66 (84) 97 07/17/17 00:00 98.1 75 18 125/76 (92) 96 07/16/17 21:30 98.5 74 17 123/68 (86) 96 07/16/17 16:00 98.1 70 20 125/76 (92) 97 I/O 07/16/17 07/16/17 07/16/17 07/17/17 07/17/17 07/17/17 07:00 15:00 23:00 07:00 15:00 23:00 Intake Total 600 ml 750 ml 775 ml Output Total 900 ml 650 ml 400 ml 600 ml Balance -900 ml -50 ml 350 ml 175 ml Intake Oral 600 ml 750 ml 775 ml Output Urine Total 900 ml 650 ml 400 ml 600 ml # Bowel Movements 3 3 1 1 Result Diagram: 07/17/17 0602 07/17/17 0602 Imaging Last Impressions Abdomen X-Ray 07/14/17 0600 Signed Impressions: Service Date/Time: Friday, July 14, 2017 07:47 - CONCLUSION: 1. Diffuse gaseous distention of the small and large bowel suggesting adynamic ileus. Franc Nelson MD Small Bowel X-Ray 07/10/17 0000 Signed Impressions: Service Date/Time: Monday, July 10, 2017 08:26 - CONCLUSION: 1. Diffuse small bowel dilatation and delayed small bowel transit time of approximately 5- 6 hours without focal transition point, intraluminal filling defect or gross mass. Findings are most consistent with moderate adynamic ileus. Bryson Downing MD Renal Ultrasound 07/10/17 0000 Signed Impressions: Service Date/Time: Monday, July 10, 2017 18:25 - CONCLUSION: 1. Unremarkable renal ultrasound. Mild ascites. Albert Walden MD Chest X-Ray 07/09/17 0600 Signed Impressions: Service Date/Time: July 06:10 - CONCLUSION: 1. Minimal basilar dependent density. Differential diagnosis includes atelectasis. Findings similar to prior exam. Albert Walden MD Chest CT 07/05/17 1635 Signed Impressions: Service Date/Time: Wednesday, July 05, 2017 18:11 - CONCLUSION: 1. Segmental consolidation with volume loss medial right lower lung. 2. Atelectasis or basilar consolidation left lower lung. 3. Mild amount of ascites. Caesar Ann MD Abdomen MRI 07/02/17 0000 Signed Impressions: Service Date/Time: June 16:34 - CONCLUSION: 1. Hepatomegaly and hepatic steatosis. No focal mass identified. 2. Moderate splenomegaly. 3. Small amount of ascites. 4. Small bilateral pleural effusions. Wilbert Howe MD Ankle X-Ray 07/01/17 0000 Signed Impressions: Service Date/Time: Saturday, July 01, 2017 10:22 - CONCLUSION: Soft tissue mass noted to be fluid filled on ultrasound 09/10/2012. Colten Nelson MD FACR Head CT 06/30/17 0000 Signed Impressions: Service Date/Time: Saturday, July 01, 2017 02:24 - CONCLUSION: 1. No acute intracranial abnormalities. Previous fixation left maxillary sinus. Albert Walden MD Cervical Spine CT 06/30/17 0000 Signed Impressions: Service Date/Time: Saturday, July 01, 2017 02:24 - CONCLUSION: Normal examination for a patient of this age. Albert Walden MD Abdomen/Pelvis CT 06/29/17 0000 Signed Impressions: Service Date/Time: Thursday, June 29, 2017 12:52 - CONCLUSION: 1. Hepatosplenomegaly and varices noted as above. 2. Atherosclerosis. 3. Abnormal diffuse heterogeneous appearance of the liver which may be related to either marked hepatic steatosis in an inhomogeneous fashion versus steatosis and underlying diffuse liver masses. An MRI of the abdomen with and without contrast may be helpful for further evaluation of this finding. Navjot Chirinos MD Objective Remarks General: No acute distress. Heart: Regular rate and rhythm. No murmur. Lungs: Clear to auscultation bilaterally. No wheezes, rales, or rhonchi. Breathing is nonlabored. Abdomen: Soft, mild diffuse tenderness without rebound or guarding, mildly distended. Positive bowel sounds. Extremities: No lower extremity edema. SCDs. Psych: Alert. Answers questions appropriately, but does display some confusion. 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 Ileus: Improved. Patient having multiple bowel movements overnight. Appreciate GI recommendations. 2. Alcohol withdrawal: Tapered off Librium. Continue multivitamin, folic acid, thiamine. 3. Acute kidney injury: Nonoliguric. Creatinine continues to improve. Renal ultrasound negative. Appreciate nephrology recommendations. 4. Hepatic encephalopathy: Continue Xifaxan. Lactulose on hold. 5. GI bleed: EGD on 06/30/17 showed mild gastritis, duodenitis. Continue Protonix. 6. Possible aspiration pneumonia: Status post treatment with Augmentin. Appreciate pulmonology recommendations. Oxygen, bronchodilators as needed. 7. Appreciate palliative care assistance. 8. Generalized weakness: Continue physical therapy. 9. DVT prophylaxis: DRU [place]. Ozzie Robbins MD Jul 17, 2017 13:50
--- NOTE | 2017-07-17 14:12 | HHI.GIFU ---
Subjective Remarks Resting in bed. Feeling much better- ambulated 12 feet with PT today. No n/v. Tolerating diet. No bm for a few days. (Yoli Koenig) Objective Vitals I&O Vital Signs Date Time Temp Pulse Resp B/P (MAP) Pulse Ox O2 Delivery O2 Flow Rate FiO2 07/17/17 12:00 98.3 64 18 97/55 (69) 96 07/17/17 10:10 72 07/17/17 08:00 97.8 69 18 112/64 (80) 96 07/17/17 04:30 98.8 74 18 120/66 (84) 97 07/17/17 00:00 98.1 75 18 125/76 (92) 96 07/16/17 21:30 98.5 74 17 123/68 (86) 96 07/16/17 16:00 98.1 70 20 125/76 (92) 97 I/O 07/16/17 07/16/17 07/16/17 07/17/17 07/17/17 07/17/17 07:00 15:00 23:00 07:00 15:00 23:00 Intake Total 600 ml 750 ml 775 ml Output Total 900 ml 650 ml 400 ml 600 ml Balance -900 ml -50 ml 350 ml 175 ml Intake Oral 600 ml 750 ml 775 ml Output Urine Total 900 ml 650 ml 400 ml 600 ml # Bowel Movements 3 3 1 1 Laboratory Laboratory Tests Test 07/17/17 06:02 White Blood Count 6.5 Red Blood Count 2.92 Hemoglobin 10.2 Hematocrit 30.3 Mean Corpuscular Volume 103.8 Mean Corpuscular Hemoglobin 35.1 Mean Corpuscular Hemoglobin Concent 33.8 Red Cell Distribution Width 16.2 Platelet Count 106 Mean Platelet Volume 9.1 Neutrophils (%) (Auto) 74.5 Lymphocytes (%) (Auto) 15.6 Monocytes (%) (Auto) 6.9 Eosinophils (%) (Auto) 2.2 Basophils (%) (Auto) 0.8 Neutrophils # (Auto) 4.8 Lymphocytes # (Auto) 1.0 Monocytes # (Auto) 0.4 Eosinophils # (Auto) 0.1 Basophils # (Auto) 0.1 CBC Comment DIFF FINAL Differential Comment Blood Urea Nitrogen 17 Creatinine 1.64 Random Glucose 82 Total Protein 6.6 Albumin 2.1 Calcium Level 7.9 Alkaline Phosphatase 92 Aspartate Amino Transf (AST/SGOT) 35 Alanine Aminotransferase (ALT/SGPT) 11 Total Bilirubin 1.5 Sodium Level 136 Potassium Level 3.5 Chloride Level 104 Carbon Dioxide Level 25.1 Anion Gap 7 Estimat Glomerular Filtration Rate 45 Date/Time Source Procedure Growth Status 07/04/17 13:00 Blood Peripheral Aerobic Blood Culture - Final NO GROWTH IN 5 DAYS Complete 07/04/17 13:00 Blood Peripheral Anaerobic Blood Culture - Final NO GROWTH IN 5 DAYS Complete 07/04/17 10:00 Sputum Expectorated Sputum Gram Stain - Final Complete 07/04/17 10:00 Sputum Expectorated Sputum Sputum Culture - Final HEAVY GROWTH NORMAL RESPIRATORY BRENNAN Complete 07/09/17 12:38 Urine Catheterized Urine Urine Culture - Final NO GROWTH IN 48 HOURS. Complete Imaging Last Impressions Abdomen X-Ray 07/14/17 0600 Signed Impressions: Service Date/Time: Friday, July 14, 2017 07:47 - CONCLUSION: 1. Diffuse gaseous distention of the small and large bowel suggesting adynamic ileus. Franc Nelson MD Small Bowel X-Ray 07/10/17 0000 Signed Impressions: Service Date/Time: Monday, July 10, 2017 08:26 - CONCLUSION: 1. Diffuse small bowel dilatation and delayed small bowel transit time of approximately 5- 6 hours without focal transition point, intraluminal filling defect or gross mass. Findings are most consistent with moderate adynamic ileus. Bryson Downing MD Renal Ultrasound 07/10/17 0000 Signed Impressions: Service Date/Time: Monday, July 10, 2017 18:25 - CONCLUSION: 1. Unremarkable renal ultrasound. Mild ascites. Albert Walden MD Chest X-Ray 07/09/17 0600 Signed Impressions: Service Date/Time: July 06:10 - CONCLUSION: 1. Minimal basilar dependent density. Differential diagnosis includes atelectasis. Findings similar to prior exam. Albert Walden MD Chest CT 07/05/17 1635 Signed Impressions: Service Date/Time: Wednesday, July 05, 2017 18:11 - CONCLUSION: 1. Segmental consolidation with volume loss medial right lower lung. 2. Atelectasis or basilar consolidation left lower lung. 3. Mild amount of ascites. Caesar Ann MD Abdomen MRI 07/02/17 0000 Signed Impressions: Service Date/Time: June 16:34 - CONCLUSION: 1. Hepatomegaly and hepatic steatosis. No focal mass identified. 2. Moderate splenomegaly. 3. Small amount of ascites. 4. Small bilateral pleural effusions. Wilbert Howe MD Ankle X-Ray 07/01/17 0000 Signed Impressions: Service Date/Time: Saturday, July 01, 2017 10:22 - CONCLUSION: Soft tissue mass noted to be fluid filled on ultrasound 09/10/2012. Colten Nelson MD FACR Head CT 06/30/17 0000 Signed Impressions: Service Date/Time: Saturday, July 01, 2017 02:24 - CONCLUSION: 1. No acute intracranial abnormalities. Previous fixation left maxillary sinus. Albert Wadlen MD Cervical Spine CT 06/30/17 0000 Signed Impressions: Service Date/Time: Saturday, July 01, 2017 02:24 - CONCLUSION: Normal examination for a patient of this age. Albert Walden MD Abdomen/Pelvis CT 06/29/17 0000 Signed Impressions: Service Date/Time: Thursday, June 29, 2017 12:52 - CONCLUSION: 1. Hepatosplenomegaly and varices noted as above. 2. Atherosclerosis. 3. Abnormal diffuse heterogeneous appearance of the liver which may be related to either marked hepatic steatosis in an inhomogeneous fashion versus steatosis and underlying diffuse liver masses. An MRI of the abdomen with and without contrast may be helpful for further evaluation of this finding. Navjot Chirinos MD Physical Exam HEENT: Normocephalic; atraumatic; jaundice. CHEST: Resp. even/shallow, diminished CARDIAC: RRR ABDOMEN: Abdomen soft, much less distended, nontender; bowel sounds present x 4. EXTREMITIES: No clubbing, cyanosis, or edema. SKIN: + jaundice. FIELD SALES REPRESENTATIVE: Lethargic,oriented x3 (Yoli Koenig) Assessment and Plan Plan ASSESSMENT: - Persistent ileus. IMPROVED. CT scan abdomen and pelvis (06/29/17)----> Hepatosplenomegaly and varices noted as above. Atherosclerosis. Abnormal diffuse heterogeneous appearance of the liver which may be related to either marked hepatic steatosis in an inhomogeneous fashion versus steatosis and underlying diffuse liver masses. An MRI of the abdomen with and without contrast may be helpful for further evaluation of this finding. Pt states this pain began after a hernia repair in July of 2016 and is intermittent at times, but usually more constant. S/P Fleets enema. KUB (07/07/17)---> No significant change mild to moderate bowel distention. S/P SBFT (07/10/17)---> Diffuse small bowel dilatation and delayed small bowel transit time of approximately 5-6 hours without focal transition point, intraluminal filling defect or gross mass. Findings are most consistent with moderate adynamic ileus. Nurse reports that he put out 2,000cc of liquid stool today. S/P Relistor (07/09). Reglan, Miralax. Lactulose is on hold. Pt with persistent distention. KUB ( 07/14/17)---> Diffuse gaseous distention of the small and large bowel suggesting adynamic ileus. Reglan, Miralax, Bethanechol, Amitiza was ordered, but not available. Rectal tube was d/c'd. S/P Golytely. Multiple large bowel movements. Distention much improved. He is ambulating with PT now. No bm for a few days. Will restart his lactulose and cont. reglan, bethanechol, miralax. OOB to chair for all meals. - Questionable upper GI bleeding. Pt presented to ER with nausea/vomiting with dark emesis and occasional red blood and intermittent dark stools. Not actively bleeding. Of note, does report that he has had nose bleeds x 2 days. However, he does have evidence of liver cirrhosis and varcies on CT imaging. EGD/Colonoscopy (12/24/15)---> There was a 5 cm segment of suspected Menendez's esophagus found in the distal esophagus, multiple biopsies were performed, there was erythematous gastritis in the entire examined stomach; multiple biopsies were performed, normal duodenal mucosa in the bulb and second portion of the duodenum, retroflexion was performed and was normal; the colon mucosa was otherwise normal, retroflexed views revealed no abnormalities. Pathology with gastric antral mucosal biopsies with histopathologic features consistent with chemical gastropathy, as may bee seen with bile reflux, non-steroidal anti-inflammatory drugs or other drug induced disease negative for intestinal metaplasia and dysplasia, farhat stain negative for helicobacter. GE mucosal biopsies with chronic inflammatory gastric changes consistent with reflux exhibiting extensive intestinal metaplasia, negative for dysplasia. 1. 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 Gastropathy and mild gastritis 3. Moderate duodenitis 4. No active bleeding and no sign of old bleeding 5. Retroflexed views revealed no abnormalities PPI. No active bleeding. HH 10.2/30.3. - Liver cirrhosis/Elevated LFTs. Pt reports that he has been told that his liver was enlarged, but never told that he had liver cirrhosis. He continues to drink ETOH, stating [address] has findings of varcies, he has thrombocytopenia, coagulopathy, hypoalbuminemia, all of which support a dx of liver cirrhosis. MRI (07/02/17)---> hepatomegaly and hepatic steatosis, no focal mass identified. Moderate splenomegaly, small amount of of ascites. Small bilateral pleural effusion. Will check liver workup to r/o other underlying liver disease- JOSE negative, AMA <20.0, ASMA negative, AFP 4.6. ALpha 1 Antitrypsin 221, Ceruloplasmin 37, Ferritin 94, Iron saturation 14.0%. Hepatitis profile neg. This is likely related to ETOH. DF 6.0. MELD 13. LFTs improving. - Menendez's Esophagus, GERD. Takes ranitidine as needed at home, has daily symptoms. EGD as above. PPI - Thrombocytopenia, Coagulopathy. Likely related to cirrhosis. - Anemia, macrocytic. HH stable, Folate 17.2, B12 1711. - Hepatic encephalopathy, Ammonia 66. Lactulose on hold for worsening distention. Getting Xifaxan. Improved. More alert today. Will restart lactulose - ETOH abuse. DT precautions per attending. - DON. Renal following, most likely has ATN causing DON. Improving, creat 1.64 today. - Resp. Insufficiency/Asthma, improved per attending. - Depression, Hyperlipidemia. Per attending. PLAN: - Heart healthy low salt soft diet - OOB to chair for all meals - Restart Lactulose 30mL po BID - Cont. Reglan - Cont. Miralax - Cont. Bethanechol - Cont. PPI - Cont. Xifaxan - Monitor labs - GI will sign off, please reconsult as needed - PT seen and examined by Dr. Cowan and myself and this note is written on his behalf (Yoli Koenig) Physician Comments Seen and examined with GIOVANNA, resolving illeus. Advance diet. Ambulate with assistance. GI fu upon dc. Gi will sign off. Thankyou (Tanya Cowan MD) Yoli Koenig Jul 17, 2017 14:12 Tanya Cowan MD Jul 17, 2017 15:26
[2017-07-17] MEDS: LACTULOSE SYRUP 20 GM/30 ML CUP PO SCH ×2 (14:46→21:52)
[2017-07-18] VITALS (7 sets, daily range): BP systolic 111–133; BP diastolic 62–76; PULSE 61–88; RESP 17–20; TEMP 97.3–98.8; O2SAT 94–96
[2017-07-18] MEDS: BETHANECHOL CHL 25 MG TAB PO SCH ×3 (06:04→23:15)
[2017-07-18] MEDS: cloNIDine HCL 0.2 MG TAB PO SCH ×3 (06:04→22:00)
[2017-07-18] MEDS: METOCLOPRAMIDE HCL 10 MG/2 ML VIAL IV PUSH SCH ×3 (06:04→23:16)
[2017-07-18] MEDS: traMADol HCL 50 MG TAB PO PRN ×3 (06:05→23:33)
[2017-07-18 08:58] LABS: BICARBONATE 20.5 MEQ/L (21.0-32.0); CALCIUM 8.1 MG/DL (8.5-10.1); CREATININE 1.58 MG/DL (0.60-1.30)
[2017-07-18] MEDS: POLYETHYLENE GLYCOL 17 GM PKG PO SCH (09:00)
[2017-07-18] MEDS: REMOVE OLD PATCH T-DERMAL SCH (09:00)
[2017-07-18] MEDS: DOCUSATE SODIUM 50 MG/SENNA 8.6 MG TAB PO SCH ×2 (09:00→21:00)
[2017-07-18] MEDS: guaiFENesin E.R. 600 MG TAB PO SCH ×2 (10:40→23:15)
[2017-07-18] MEDS: NICOTINE 14 MG/24 HR PATCH T-DERMAL SCH (10:40)
[2017-07-18] MEDS: LACTULOSE SYRUP 20 GM/30 ML CUP PO SCH ×2 (10:40→21:00)
[2017-07-18] MEDS: PANTOPRAZOLE SODIUM 40 MG VIAL IV SCH ×2 (10:40→23:17)
[2017-07-18] MEDS: RIFAXIMIN 550 MG TAB PO SCH ×2 (10:40→23:15)
[2017-07-18] MEDS: THIAMINE HCL 100 MG TAB PO SCH (10:40)
[2017-07-18] MEDS: SODIUM CHLORIDE 0.9% FLUSH 10 ML FLUSH IV FLUSH SCH ×2 (10:41→23:17)
--- NOTE | 2017-07-18 14:16 | HHI.NPPN ---
Subjective History of Present Illness 51-year-old male with a past medical history of cirrhosis of the liver, bronchial asthma, depression, hyperlipidemia, pancreatitis, Menendez's esophagus, chronic abdominal pain, possible history of gastric ulcer and varices, questionable esophageal cancer who was admitted with abdominal pain and distension. I was called to see the patient because of elevated BUN and creatinine. Additional Remarks Patient is alert, no acute complaints Review of Systems General Constitutional: Fatigue Respiratory Lungs: Wheeze Cardiovascular Cardiac: CORTES Gastrointestinal Gastrointestinal: Abdominal Pain Objective Data Data Vital Signs Date Time Temp Pulse Resp B/P (MAP) Pulse Ox O2 Delivery O2 Flow Rate FiO2 07/18/17 12:00 97.9 66 19 111/69 (83) 95 07/18/17 08:00 97.7 68 18 112/67 (82) 95 07/18/17 08:00 61 07/18/17 04:40 97.3 70 17 115/62 (79) 96 07/18/17 02:11 71 07/18/17 00:30 98.8 88 18 120/70 (87) 94 07/17/17 20:40 98.4 80 19 122/67 (85) 95 07/17/17 16:00 98.3 70 18 108/62 (77) 94 -: 07/17/17 0602 07/18/17 0559 Physical Exam General Appearance: No Acute Distress, Anxious Throat Throat Exam: Oral Mucosa [place] & Moist Neck Neck Exam: Neck Supple Pulmonary Resp Exam: Breath Sounds Equal, Rhonchi, Decreased Bases Cardiology CV Exam: Regular, Normal Sinus Rhythm Gastrointestinal/Abdomen GI Exam: Soft, Bowel Sounds Present, Distended Extremeties Extremities Exam: Trace Edema Neurologic Neuro Exam: Alert, Awake, Oriented Assessment/Plan Assessment Summary: DON/Acute Renal Failure Problem List: (1) Acute kidney injury ICD Codes: N17.9 - Acute kidney failure, unspecified (2) Encephalopathy ICD Codes: G93.40 - Encephalopathy, unspecified (3) Anemia ICD Codes: D64.9 - Anemia, unspecified Status: Acute (4) Jaundice ICD Codes: R17 - Unspecified jaundice (5) Gastritis ICD Codes: K29.70 - Gastritis, unspecified, without bleeding Status: Acute (6) 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 Normal size kidneys and has Normal Na. in the urine. Urine Eosinophils is negative. Most likely has ATN causing DON. Has elevated Bilirubin. BP is stable, Creatinine is improving, now 1.58 Follow the urine out put and BMP. Avoid Nephrotoxins. Encourage oral intake. Renal function improving, stable for d/c from renal standpoint. Will need further physical therapy Franc Oakes MD Jul 18, 2017 14:16
--- NOTE | 2017-07-18 14:35 | HHI.PR ---
Subjective Remarks Follow up generalized weakness. Patient states that he feels very weak, but that he is getting stronger. Denies chest pain, dyspnea, nausea, vomiting. Objective Vitals Vital Signs Date Time Temp Pulse Resp B/P (MAP) Pulse Ox O2 Delivery O2 Flow Rate FiO2 07/18/17 12:00 97.9 66 19 111/69 (83) 95 07/18/17 08:00 97.7 68 18 112/67 (82) 95 07/18/17 08:00 61 07/18/17 04:40 97.3 70 17 115/62 (79) 96 07/18/17 02:11 71 07/18/17 00:30 98.8 88 18 120/70 (87) 94 07/17/17 20:40 98.4 80 19 122/67 (85) 95 07/17/17 16:00 98.3 70 18 108/62 (77) 94 I/O 07/17/17 07/17/17 07/17/17 07/18/17 07/18/17 07/18/17 07:00 15:00 23:00 07:00 15:00 23:00 Intake Total 775 ml 900 ml Output Total 600 ml 750 ml Balance 175 ml 150 ml Intake Oral 775 ml 900 ml Output Urine Total 600 ml 750 ml # Voids 1 # Bowel Movements 1 4 Result Diagram: 07/17/17 0602 07/18/17 0559 Imaging Last Impressions Abdomen X-Ray 07/14/17 0600 Signed Impressions: Service Date/Time: Friday, July 14, 2017 07:47 - CONCLUSION: 1. Diffuse gaseous distention of the small and large bowel suggesting adynamic ileus. Franc Nelson MD Small Bowel X-Ray 07/10/17 0000 Signed Impressions: Service Date/Time: Monday, July 10, 2017 08:26 - CONCLUSION: 1. Diffuse small bowel dilatation and delayed small bowel transit time of approximately 5- 6 hours without focal transition point, intraluminal filling defect or gross mass. Findings are most consistent with moderate adynamic ileus. Bryson Downing MD Renal Ultrasound 07/10/17 0000 Signed Impressions: Service Date/Time: Monday, July 10, 2017 18:25 - CONCLUSION: 1. Unremarkable renal ultrasound. Mild ascites. Albert Walden MD Chest X-Ray 07/09/17 0600 Signed Impressions: Service Date/Time: July 06:10 - CONCLUSION: 1. Minimal basilar dependent density. Differential diagnosis includes atelectasis. Findings similar to prior exam. Albert Walden MD Chest CT 07/05/17 1635 Signed Impressions: Service Date/Time: Wednesday, July 05, 2017 18:11 - CONCLUSION: 1. Segmental consolidation with volume loss medial right lower lung. 2. Atelectasis or basilar consolidation left lower lung. 3. Mild amount of ascites. Caesar Ann MD Abdomen MRI 07/02/17 0000 Signed Impressions: Service Date/Time: June 16:34 - CONCLUSION: 1. Hepatomegaly and hepatic steatosis. No focal mass identified. 2. Moderate splenomegaly. 3. Small amount of ascites. 4. Small bilateral pleural effusions. Wilbert Howe MD Ankle X-Ray 07/01/17 0000 Signed Impressions: Service Date/Time: Saturday, July 01, 2017 10:22 - CONCLUSION: Soft tissue mass noted to be fluid filled on ultrasound 09/10/2012. Colten Nelson MD FACR Head CT 06/30/17 0000 Signed Impressions: Service Date/Time: Saturday, July 01, 2017 02:24 - CONCLUSION: 1. No acute intracranial abnormalities. Previous fixation left maxillary sinus. Albert Walden MD Cervical Spine CT 06/30/17 0000 Signed Impressions: Service Date/Time: Saturday, July 01, 2017 02:24 - CONCLUSION: Normal examination for a patient of this age. Albert Walden MD Abdomen/Pelvis CT 06/29/17 0000 Signed Impressions: Service Date/Time: Thursday, June 29, 2017 12:52 - CONCLUSION: 1. Hepatosplenomegaly and varices noted as above. 2. Atherosclerosis. 3. Abnormal diffuse heterogeneous appearance of the liver which may be related to either marked hepatic steatosis in an inhomogeneous fashion versus steatosis and underlying diffuse liver masses. An MRI of the abdomen with and without contrast may be helpful for further evaluation of this finding. Navjot Chirinos MD Objective Remarks General: No acute distress. Heart: Regular rate and rhythm. No murmur. Lungs: Clear to auscultation bilaterally. No wheezes, rales, or rhonchi. Breathing is nonlabored. Abdomen: Soft, nontender, mildly distended. Positive bowel sounds. Extremities: No lower extremity edema. SCDs. Psych: Alert. Answers questions appropriately, but does display some confusion. 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 Ileus: Improved. Patient having multiple bowel movements overnight. GI has signed off. 2. Alcohol withdrawal: Tapered off Librium. Continue multivitamin, folic acid, thiamine. 3. Acute kidney injury: Nonoliguric. Creatinine continues to improve. Renal ultrasound negative. Appreciate nephrology recommendations. 4. Hepatic encephalopathy: Continue Xifaxan. Lactulose on hold. 5. GI bleed: EGD on 06/30/17 showed mild gastritis, duodenitis. Continue Protonix. 6. Possible aspiration pneumonia: Status post treatment with Augmentin. Appreciate pulmonology recommendations. Oxygen, bronchodilators as needed. 7. Appreciate palliative care assistance. 8. Generalized weakness: Continue physical therapy. Slowly improving. 9. DVT prophylaxis: DRU [place]. Discharge Planning Pending further improvement. Not safe for discharge at this time due to profound weakness. PT/OT recommending rehab, however patient has no payor source. Ozzie Robbins MD Jul 18, 2017 14:35
[2017-07-19] VITALS (8 sets, daily range): BP systolic 110–120; BP diastolic 64–72; PULSE 58–79; RESP 18–24; TEMP 96.9–98.5; O2SAT 94–100
[2017-07-19] MEDS: METOCLOPRAMIDE HCL 10 MG/2 ML VIAL IV PUSH SCH ×3 (06:06→21:33)
[2017-07-19] MEDS: BETHANECHOL CHL 25 MG TAB PO SCH ×3 (06:09→21:31)
[2017-07-19] MEDS: cloNIDine HCL 0.2 MG TAB PO SCH ×3 (06:09→21:31)
[2017-07-19] MEDS: traMADol HCL 50 MG TAB PO PRN ×3 (06:57→21:30)
[2017-07-19] MEDS: guaiFENesin E.R. 600 MG TAB PO SCH ×2 (08:30→21:31)
[2017-07-19] MEDS: THIAMINE HCL 100 MG TAB PO SCH (08:30)
[2017-07-19] MEDS: LACTULOSE SYRUP 20 GM/30 ML CUP PO SCH ×2 (08:30→21:32)
[2017-07-19] MEDS: REMOVE OLD PATCH T-DERMAL SCH (08:30)
[2017-07-19] MEDS: RIFAXIMIN 550 MG TAB PO SCH ×2 (08:30→21:32)
[2017-07-19] MEDS: PANTOPRAZOLE SODIUM 40 MG VIAL IV SCH ×2 (08:30→21:32)
[2017-07-19] MEDS: SODIUM CHLORIDE 0.9% FLUSH 10 ML FLUSH IV FLUSH SCH ×2 (08:30→21:33)
[2017-07-19] MEDS: NICOTINE 14 MG/24 HR PATCH T-DERMAL SCH (08:30)
[2017-07-19] MEDS: POLYETHYLENE GLYCOL 17 GM PKG PO SCH (08:31)
[2017-07-19] MEDS: DOCUSATE SODIUM 50 MG/SENNA 8.6 MG TAB PO SCH ×2 (08:31→21:32)
[2017-07-19 08:58] LABS: CREATININE 1.51 MG/DL (0.60-1.30)
--- NOTE | 2017-07-19 11:16 | HHI.NPPN ---
Subjective History of Present Illness 51-year-old male with a past medical history of cirrhosis of the liver, bronchial asthma, depression, hyperlipidemia, pancreatitis, Menendez's esophagus, chronic abdominal pain, possible history of gastric ulcer and varices, questionable esophageal cancer who was admitted with abdominal pain and distension. I was called to see the patient because of elevated BUN and creatinine. Additional Remarks Patient is alert, no acute complaints Review of Systems General Constitutional: Fatigue Respiratory Lungs: Wheeze Cardiovascular Cardiac: CORTES Gastrointestinal Gastrointestinal: Abdominal Pain Objective Data Data 07/19/17 07/20/17 19:00 07:00 Intake Total 240 ml Output Total 800 ml Balance -560 ml Intake Oral 240 ml Output Urine Total 800 ml # Bowel Movements 1 Vital Signs Date Time Temp Pulse Resp B/P (MAP) Pulse Ox O2 Delivery O2 Flow Rate FiO2 07/19/17 10:11 79 07/19/17 08:00 98.5 69 18 117/70 (86) 94 07/19/17 05:46 98.1 72 20 117/68 (84) 99 07/19/17 04:53 62 07/19/17 01:08 97.8 69 20 114/68 (83) 100 07/18/17 21:13 97.8 71 20 133/76 (95) 96 07/18/17 16:00 97.5 64 19 112/64 (80) 96 07/18/17 12:00 97.9 66 19 111/69 (83) 95 -: 07/17/17 0602 07/19/17 0813 Physical Exam General Appearance: No Acute Distress, Anxious Throat Throat Exam: Oral Mucosa [place] & Moist Neck Neck Exam: Neck Supple Pulmonary Resp Exam: Breath Sounds Equal, Rhonchi, Decreased Bases Cardiology CV Exam: Regular, Normal Sinus Rhythm Gastrointestinal/Abdomen GI Exam: Soft, Bowel Sounds Present, Distended Extremeties Extremities Exam: Trace Edema Neurologic Neuro Exam: Alert, Awake, Oriented Assessment/Plan Assessment Summary: DON/Acute Renal Failure Problem List: (1) Acute kidney injury ICD Codes: N17.9 - Acute kidney failure, unspecified (2) Encephalopathy ICD Codes: G93.40 - Encephalopathy, unspecified (3) Anemia ICD Codes: D64.9 - Anemia, unspecified Status: Acute (4) Jaundice ICD Codes: R17 - Unspecified jaundice (5) Gastritis ICD Codes: K29.70 - Gastritis, unspecified, without bleeding Status: Acute (6) 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 Normal size kidneys and has Normal Na. in the urine. Urine Eosinophils is negative. Most likely has ATN causing DON. Has elevated Bilirubin. BP is stable, Creatinine is improving, now stable at 1.5 Follow the urine out put and BMP. Avoid Nephrotoxins. Encourage oral intake. Renal function improving, stable for d/c from renal standpoint. Will need further physical therapy Franc Oakes MD Jul 19, 2017 11:16
--- NOTE | 2017-07-19 11:25 | HHI.PR ---
Subjective Remarks Follow up generalized weakness. Patient reports pain in both legs. He is tired. No chest pain, dyspnea. Objective Vitals Vital Signs Date Time Temp Pulse Resp B/P (MAP) Pulse Ox O2 Delivery O2 Flow Rate FiO2 07/19/17 10:11 79 07/19/17 08:00 98.5 69 18 117/70 (86) 94 07/19/17 05:46 98.1 72 20 117/68 (84) 99 07/19/17 04:53 62 07/19/17 01:08 97.8 69 20 114/68 (83) 100 07/18/17 21:13 97.8 71 20 133/76 (95) 96 07/18/17 16:00 97.5 64 19 112/64 (80) 96 07/18/17 12:00 97.9 66 19 111/69 (83) 95 I/O 07/18/17 07/18/17 07/18/17 07/19/17 07/19/17 07/19/17 07:00 15:00 23:00 07:00 15:00 23:00 Intake Total 900 ml 240 ml Output Total 750 ml 300 ml 300 ml 800 ml Balance 150 ml -300 ml -300 ml -560 ml Intake Oral 900 ml 240 ml Output Urine Total 750 ml 300 ml 300 ml 800 ml # Voids 1 # Bowel Movements 4 1 1 Result Diagram: 07/17/17 0602 07/19/17 0813 Imaging Last Impressions Abdomen X-Ray 07/14/17 0600 Signed Impressions: Service Date/Time: Friday, July 14, 2017 07:47 - CONCLUSION: 1. Diffuse gaseous distention of the small and large bowel suggesting adynamic ileus. Franc Nelson MD Small Bowel X-Ray 07/10/17 0000 Signed Impressions: Service Date/Time: Monday, July 10, 2017 08:26 - CONCLUSION: 1. Diffuse small bowel dilatation and delayed small bowel transit time of approximately 5- 6 hours without focal transition point, intraluminal filling defect or gross mass. Findings are most consistent with moderate adynamic ileus. Bryson Downing MD Renal Ultrasound 07/10/17 0000 Signed Impressions: Service Date/Time: Monday, July 10, 2017 18:25 - CONCLUSION: 1. Unremarkable renal ultrasound. Mild ascites. Albert Walden MD Chest X-Ray 07/09/17 0600 Signed Impressions: Service Date/Time: July 06:10 - CONCLUSION: 1. Minimal basilar dependent density. Differential diagnosis includes atelectasis. Findings similar to prior exam. Albert Walden MD Chest CT 07/05/17 1635 Signed Impressions: Service Date/Time: Wednesday, July 05, 2017 18:11 - CONCLUSION: 1. Segmental consolidation with volume loss medial right lower lung. 2. Atelectasis or basilar consolidation left lower lung. 3. Mild amount of ascites. Caesar Ann MD Abdomen MRI 07/02/17 0000 Signed Impressions: Service Date/Time: June 16:34 - CONCLUSION: 1. Hepatomegaly and hepatic steatosis. No focal mass identified. 2. Moderate splenomegaly. 3. Small amount of ascites. 4. Small bilateral pleural effusions. Wilbert Howe MD Ankle X-Ray 07/01/17 0000 Signed Impressions: Service Date/Time: Saturday, July 01, 2017 10:22 - CONCLUSION: Soft tissue mass noted to be fluid filled on ultrasound 09/10/2012. Colten Nelson MD FACR Head CT 06/30/17 0000 Signed Impressions: Service Date/Time: Saturday, July 01, 2017 02:24 - CONCLUSION: 1. No acute intracranial abnormalities. Previous fixation left maxillary sinus. Albert Walden MD Cervical Spine CT 06/30/17 0000 Signed Impressions: Service Date/Time: Saturday, July 01, 2017 02:24 - CONCLUSION: Normal examination for a patient of this age. Albert Walden MD Abdomen/Pelvis CT 06/29/17 0000 Signed Impressions: Service Date/Time: Thursday, June 29, 2017 12:52 - CONCLUSION: 1. Hepatosplenomegaly and varices noted as above. 2. Atherosclerosis. 3. Abnormal diffuse heterogeneous appearance of the liver which may be related to either marked hepatic steatosis in an inhomogeneous fashion versus steatosis and underlying diffuse liver masses. An MRI of the abdomen with and without contrast may be helpful for further evaluation of this finding. Navjot Chirinos MD Objective Remarks General: No acute distress. Heart: Regular rate and rhythm. No murmur. Lungs: Clear to auscultation bilaterally. No wheezes, rales, or rhonchi. Breathing is nonlabored. Abdomen: Soft, nontender, mildly distended. Positive bowel sounds. Extremities: 2+ left lower extremity edema. SCDs. Psych: Sleeping, but awakens and questions appropriately. 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 Ileus: Improved. Patient having multiple bowel movements overnight. GI has signed off. 2. Alcohol withdrawal: Tapered off Librium. Continue multivitamin, folic acid, thiamine. 3. Acute kidney injury: Nonoliguric. Creatinine continues to improve. Renal ultrasound negative. Appreciate nephrology recommendations. 4. Hepatic encephalopathy: Continue Xifaxan. Lactulose on hold. 5. GI bleed: EGD on 06/30/17 showed mild gastritis, duodenitis. Continue Protonix. 6. Possible aspiration pneumonia: Status post treatment with Augmentin. Appreciate pulmonology recommendations. Oxygen, bronchodilators as needed. 7. Appreciate palliative care assistance. 8. Generalized weakness: Continue physical therapy. Slowly improving. 9. Left lower extremity edema: Check ultrasound. 10. DVT prophylaxis: SCDs, DRU [place]. Discharge Planning Pending further improvement. Not safe for discharge at this time due to profound weakness. PT/OT recommending rehab, however patient has no payor source. Stoverink,Ozzie D. MD Jul 19, 2017 11:25
--- NOTE | 2017-07-19 17:28 | RADRPT ---
EXAM DATE/TIME: 07/19/2017 15:46 [facility] COMPARISON: No previous studies available for comparison. INDICATIONS : Left leg swelling. MEDICAL HISTORY : Carcinoma, esophageal. Menendez's disease. tremors. asthma. ulcer. hematemesis. SURGICAL HISTORY : Surgery left eye. ENCOUNTER: Initial ACUITY: 2 day PAIN SCORE: 5/10 LOCATION: Left leg. TECHNIQUE: Venous ultrasound of the leg was performed from the inguinal ligament to the proximal calf. Real-garfield e, color Doppler and spectral tracing, compression and augmentation techniques were used. FINDINGS: There is normal compressibility of the deep venous system from the inguinal region to the proximal ca lf. No echogenic clot is seen in the lumen of the common femoral, femoral, popliteal, and posterior tibial veins. There is a normal response of the venous system to proximal and distal augmentation an d respiration. CONCLUSION: 1. No evidence of deep venous thrombosis. Bharath May MD on July 19, 2017 at 17:26 Board Certified Radiologist. This report was verified electronically.
[2017-07-20] VITALS (8 sets, daily range): BP systolic 113–131; BP diastolic 60–94; PULSE 69–73; RESP 18–20; TEMP 97.6–98.1; O2SAT 92–95
[2017-07-20] MEDS: cloNIDine HCL 0.2 MG TAB PO SCH ×3 (06:25→22:14)
[2017-07-20] MEDS: METOCLOPRAMIDE HCL 10 MG/2 ML VIAL IV PUSH SCH ×3 (06:25→22:13)
[2017-07-20] MEDS: BETHANECHOL CHL 25 MG TAB PO SCH ×3 (06:25→22:14)
[2017-07-20] MEDS: traMADol HCL 50 MG TAB PO PRN ×2 (06:26→13:52)
[2017-07-20 07:17] LABS: BICARBONATE 26.9 MEQ/L (21.0-32.0); CALCIUM 8.2 MG/DL (8.5-10.1); CREATININE 1.61 MG/DL (0.60-1.30)
[2017-07-20] MEDS: NICOTINE 14 MG/24 HR PATCH T-DERMAL SCH (08:50)
[2017-07-20] MEDS: THIAMINE HCL 100 MG TAB PO SCH (08:50)
[2017-07-20] MEDS: LACTULOSE SYRUP 20 GM/30 ML CUP PO SCH ×2 (08:50→22:13)
[2017-07-20] MEDS: SODIUM CHLORIDE 0.9% FLUSH 10 ML FLUSH IV FLUSH SCH ×2 (08:50→22:13)
[2017-07-20] MEDS: RIFAXIMIN 550 MG TAB PO SCH ×2 (08:50→22:13)
[2017-07-20] MEDS: guaiFENesin E.R. 600 MG TAB PO SCH ×2 (08:50→22:13)
[2017-07-20] MEDS: POLYETHYLENE GLYCOL 17 GM PKG PO SCH (08:51)
[2017-07-20] MEDS: PANTOPRAZOLE SODIUM 40 MG VIAL IV SCH ×2 (08:51→22:12)
[2017-07-20] MEDS: DOCUSATE SODIUM 50 MG/SENNA 8.6 MG TAB PO SCH ×2 (08:51→22:13)
[2017-07-20] MEDS: REMOVE OLD PATCH T-DERMAL SCH (08:51)
--- NOTE | 2017-07-20 12:01 | HHI.PR ---
Subjective Remarks No new complaints from the patient. He says his upper extremities feel strongly that his lower extremities feel weak. He continues to work well with PT. Objective Vital Signs Date Time Temp Pulse Resp B/P (MAP) Pulse Ox O2 Delivery O2 Flow Rate FiO2 07/20/17 08:40 70 07/20/17 08:00 97.8 69 18 113/94 (100) 94 07/20/17 05:36 97.7 72 20 114/60 (78) 95 07/20/17 02:44 69 07/20/17 01:27 98.0 73 20 114/62 (79) 92 07/19/17 21:03 97.8 68 24 120/72 (88) 95 07/19/17 16:00 96.9 58 19 110/64 (79) 95 07/19/17 12:00 97.9 60 18 118/70 (86) 94 I/O 07/19/17 07/19/17 07/19/17 07/20/17 07/20/17 07/20/17 07:00 15:00 23:00 07:00 15:00 23:00 Intake Total 1000 ml Output Total 300 ml 1300 ml 300 ml Balance -300 ml -300 ml -300 ml Intake Oral 1000 ml Output Urine Total 300 ml 1300 ml 300 ml # Bowel Movements 2 Result Diagram: 07/17/17 0607/20/17 0519 Objective Remarks GENERAL: NAD, A&Ox3 HEAD: Normocephalic. NECK: Supple, trachea midline. No lymphadenopathy. EYES: No scleral icterus. No injection or drainage. CARDIOVASCULAR: Regular rate and rhythm without murmurs, gallops, or rubs. RESPIRATORY: Breath sounds equal bilaterally. No accessory muscle use. GASTROINTESTINAL: Abdomen soft, non-tender, nondistended. MUSCULOSKELETAL: No cyanosis, or edema. Lower extremity weakness. SKIN: Warm and dry. NEURO: No focal neurological deficitis. A/P Problem List: (1) Weakness ICD Code: R53.1 - Weakness (2) Acute kidney injury ICD Code: N17.9 - Acute kidney failure, unspecified (3) Alcohol use ICD Code: Z78.9 - Other specified health status Status: Acute Assessment and Plan Assessment and Plan 51 year old male admitted with ETOH withdraw and Ileus. Ileus Improved Follow for any recurrence ETOH Withdraw Resolved Continue folic acid Continue thiamine Continue multivitamin DON No significant change for better or worse Not yet to baseline Follow renal function Hepatic Encephalopathy Continue Xifaxan GI Bleed CBC shows no evidence of active bleed Etiology had been gastritis and duodenitis Continue protonix Generalized Weakness PT Slow improvement No payor source for SNF DVT Prophylaxis SCDs (high bleed risk) Discharge Planning To much weakness for safe discharge SNF not yet an option due to lack of payor source Franc Byrd MD Jul 20, 2017 12:01
--- NOTE | 2017-07-20 12:11 | HHI.PR ---
Subjective Remarks No new complaints from the patient. He says his upper extremities feel strongly that his lower extremities feel weak. He continues to work well with PT. Objective Vital Signs Date Time Temp Pulse Resp B/P (MAP) Pulse Ox O2 Delivery O2 Flow Rate FiO2 07/20/17 08:40 70 07/20/17 08:00 97.8 69 18 113/94 (100) 94 07/20/17 05:36 97.7 72 20 114/60 (78) 95 07/20/17 02:44 69 07/20/17 01:27 98.0 73 20 114/62 (79) 92 07/19/17 21:03 97.8 68 24 120/72 (88) 95 07/19/17 16:00 96.9 58 19 110/64 (79) 95 I/O 07/19/17 07/19/17 07/19/17 07/20/17 07/20/17 07/20/17 07:00 15:00 23:00 07:00 15:00 23:00 Intake Total 1000 ml Output Total 300 ml 1300 ml 300 ml Balance -300 ml -300 ml -300 ml Intake Oral 1000 ml Output Urine Total 300 ml 1300 ml 300 ml # Bowel Movements 2 Result Diagram: 07/17/17 0602 07/20/17 0519 Objective Remarks GENERAL: NAD, A&Ox3 HEAD: Normocephalic. NECK: Supple, trachea midline. No lymphadenopathy. EYES: No scleral icterus. No injection or drainage. CARDIOVASCULAR: Regular rate and rhythm without murmurs, gallops, or rubs. RESPIRATORY: Breath sounds equal bilaterally. No accessory muscle use. GASTROINTESTINAL: Abdomen soft, non-tender, nondistended. MUSCULOSKELETAL: No cyanosis, or edema. Lower extremity weakness. SKIN: Warm and dry. NEURO: No focal neurological deficitis. A/P Problem List: (1) Weakness ICD Code: R53.1 - Weakness (2) Acute kidney injury ICD Code: N17.9 - Acute kidney failure, unspecified (3) Alcohol use ICD Code: Z78.9 - Other specified health status Status: Acute Assessment and Plan Assessment and Plan 51 year old male admitted with ETOH withdraw and Ileus. Ileus Improved Follow for any recurrence ETOH Withdraw Resolved Continue folic acid Continue thiamine Continue multivitamin DON No significant change for better or worse Not yet to baseline Follow renal function Hepatic Encephalopathy Continue Xifaxan GI Bleed CBC shows no evidence of active bleed Etiology had been gastritis and duodenitis Continue protonix Generalized Weakness PT Slow improvement No payor source for SNF Degree of weakness is greater than expected given patient's clinical presentation Evaluate for Guillain-Segovia syndrome Consult neurology DVT Prophylaxis SCDs (high bleed risk) Discharge Planning To much weakness for safe discharge SNF not yet an option due to lack of payor source Franc Byrd MD Jul 20, 2017 12:11
--- NOTE | 2017-07-20 18:51 | HHI.NPPN ---
Subjective History of Present Illness 51-year-old male with a past medical history of cirrhosis of the liver, bronchial asthma, depression, hyperlipidemia, pancreatitis, Menendez's esophagus, chronic abdominal pain, possible history of gastric ulcer and varices, questionable esophageal cancer who was admitted with abdominal pain and distension. I was called to see the patient because of elevated BUN and creatinine. Additional Remarks Patient is alert, complain of abd. distension, not eating well. Review of Systems General Constitutional: Fatigue Respiratory Lungs: Wheeze Cardiovascular Cardiac: CORTES Gastrointestinal Gastrointestinal: Abdominal Pain Objective Data Data Vital Signs Date Time Temp Pulse Resp B/P (MAP) Pulse Ox O2 Delivery O2 Flow Rate FiO2 07/20/17 16:00 97.6 73 18 126/69 (88) 93 07/20/17 12:00 98.1 70 18 129/78 (95) 93 07/20/17 08:40 70 07/20/17 08:00 97.8 69 18 113/94 (100) 94 07/20/17 05:36 97.7 72 20 114/60 (78) 95 07/20/17 02:44 69 07/20/17 01:27 98.0 73 20 114/62 (79) 92 07/19/17 21:03 97.8 68 24 120/72 (88) 95 -: 07/17/17 0602 07/20/17 0519 Physical Exam General Appearance: No Acute Distress, Anxious Throat Throat Exam: Oral Mucosa [place] & Moist Neck Neck Exam: Neck Supple Pulmonary Resp Exam: Breath Sounds Equal, Rhonchi, Decreased Bases Cardiology CV Exam: Regular, Normal Sinus Rhythm Gastrointestinal/Abdomen GI Exam: Soft, Bowel Sounds Present, Distended Extremeties Extremities Exam: Trace Edema Neurologic Neuro Exam: Alert, Awake, Oriented Assessment/Plan Assessment Summary: DON/Acute Renal Failure Problem List: (1) Acute kidney injury ICD Codes: N17.9 - Acute kidney failure, unspecified (2) Encephalopathy ICD Codes: G93.40 - Encephalopathy, unspecified (3) Anemia ICD Codes: D64.9 - Anemia, unspecified Status: Acute (4) Jaundice ICD Codes: R17 - Unspecified jaundice (5) Gastritis ICD Codes: K29.70 - Gastritis, unspecified, without bleeding Status: Acute (6) 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 Normal size kidneys and has Normal Na. in the urine. Urine Eosinophils is negative. Most likely has ATN causing DON. Has elevated Bilirubin. BP is stable, Creatinine remain stable at 1.5-1.6, non oliguric. Follow the urine out put and BMP. Avoid Nephrotoxins. Encourage oral intake. Can be discharged from Nephrology, with follow up. Linette Guerra MD Jul 20, 2017 18:51
--- NOTE | 2017-07-20 20:18 | MB ---
cc: DEMETRA HERNANDEZ DATE OF CONSULTATION 07/20/2017 HISTORY He is a 51-year-old left-handed man with stomach cancer, new diagnosis. He says he has been falling for three months, balance has been a bit off. I am seeing him for possible Guillain-[place] syndrome. He has been on the hospital since 06/29/2017 when he was admitted with heavy alcohol us. Came to the emergency room with abdominal pain, hernia repair in the middle of his abdomen, having pain there. Multiple cocktails a day with vodka and cranberry large. He has felt some weakness he says in his legs, unsteady gait for about 3 months. He has developed abdominal distension. He had alcohol withdrawal and ileus. Some hepatic encephalopathy. He ambulated 12 feet with physical therapy and the walker. I do not see any mention of stomach cancer in the chart. REVIEW OF SYSTEMS He denies any hypertension, diabetes, hypercholesterolemia, [place], CABG, cardiac arrhythmia, renal, hepatic or pulmonary disease, thyroid disease, lupus, ulcer, seizure or stroke. SOCIAL HISTORY He is a smoker. He denies any alcohol use but obviously he has been a heavy alcohol drinker. Lives by herself. FAMILY HISTORY Positive for cancer. Negative for seizure or stroke. CURRENT MEDICATIONS 1. Lactulose. 2. Urecholine. 3. As needed Ativan for anxiety. 4. Clonidine. 5. Reglan. 6. MiraLax. 7. Rifaximin. 8. Protonix. 9. Mucinex. 10. Catapres p.r.n. 11. Morphine p.r.n. 12. Ultram which he has been getting also. PHYSICAL EXAMINATION VITAL SIGNS: On exam afebrile, 70, 18, 129/78. NECK: There were no carotid bruits. CARDIOVASCULAR: Heart was regular rhythm. I do not detect a murmur. NEUROLOGIC: Pupils are equal, visual chavez are full. Extraocular movements intact without nystagmus. Face symmetric with normal sensation. Tongue was midline. There was no drift. He had normal strength in bilateral upper extremities, triceps, finger extensors, FTI, APB. Best testing bilateral lower extremities had normal strength in iliopsoas with his knees up off the bed. Quadriceps, tibialis anterior, foot inversion, eversion. His hamstring normal on the left, about a 4+/5 on the right. DTRs are 2+ symmetric at the knees, trace in the legs. Toes are downgoing bilaterally. He has no ankle clonus. Tone was normal throughout. He has some slight diffuse edema. His abdomen is severely distended and very tight. Bowel sounds are positive. Pinprick was absent to the ankle bilaterally but vibratory sense and proprioception was intact. He is not ataxic on [id number]. Pinprick was also intact in the hands, the face and the scrotum. LABORATORY DATA Hematocrit 30. White count is normal. Platelet count 106. Hepatitis screen negative. JOSE negative. UA negative. Creatinine 1.61. BMP otherwise normal. Calcium normal. LFTs are normal. Ammonia level of 66. LDL cholesterol 101. B12 was normal. TSH slightly elevated. Folate level normal. CPK normal on 07/09/2017. IMAGING He had a cervical spine CT done which was normal. Head CT done in December of last year showed some facial fractures. head CT done on this admission negative. IMPRESSION I thought he actually looked fairly well neurologically. He does have some numbness in his in his feet bilaterally. 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 He needs to get up and ambulate more but his stomach is extremely distended. The narcotics could only worsen the ileus if that is what is causing his abdominal distension and I would defer to the med team if that needs to be stopped or not. He was under the impression that he had stomach cancer by I do not see any evidence of that. He has had since 2015 hepatosplenomegaly, how much is from his alcohol use is unclear, but I did suggest it could be from that. I do not see any evidence of Guillain-[place] syndrome. He has good reflexes and I will talk to physical therapy and see how he ambulates tomorrow but a lot of this could be from disuse and from his alcohol use and deconditioning. MD TERRANCE Devi/KALEB /5:04 PM /7:45 PM
--- NOTE | 2017-07-20 20:18 | MB ---
cc: DEMETRA HERNANDEZ DATE OF CONSULTATION 07/20/2017 HISTORY He is a 51-year-old left-handed man with stomach cancer, new diagnosis. He says he has been falling for three months, balance has been a bit off. I am seeing him for possible Guillain-[place] syndrome. He has been on the hospital since 06/29/2017 when he was admitted with heavy alcohol us. Came to the emergency room with abdominal pain, hernia repair in the middle of his abdomen, having pain there. Multiple cocktails a day with vodka and cranberry large. He has felt some weakness he says in his legs, unsteady gait for about 3 months. He has developed abdominal distension. He had alcohol withdrawal and ileus. Some hepatic encephalopathy. He ambulated 12 feet with physical therapy and the walker. I do not see any mention of stomach cancer in the chart. REVIEW OF SYSTEMS He denies any hypertension, diabetes, hypercholesterolemia, [place], CABG, cardiac arrhythmia, renal, hepatic or pulmonary disease, thyroid disease, lupus, ulcer, seizure or stroke. SOCIAL HISTORY He is a smoker. He denies any alcohol use but obviously he has been a heavy alcohol drinker. Lives by herself. FAMILY HISTORY Positive for cancer. Negative for seizure or stroke. CURRENT MEDICATIONS 1. Lactulose. 2. Urecholine. 3. As needed Ativan for anxiety. 4. Clonidine. 5. Reglan. 6. MiraLax. 7. Rifaximin. 8. Protonix. 9. Mucinex. 10. Catapres p.r.n. 11. Morphine p.r.n. 12. Ultram which he has been getting also. PHYSICAL EXAMINATION VITAL SIGNS: On exam afebrile, 70, 18, 129/78. NECK: There were no carotid bruits. CARDIOVASCULAR: Heart was regular rhythm. I do not detect a murmur. NEUROLOGIC: Pupils are equal, visual chavez are full. Extraocular movements intact without nystagmus. Face symmetric with normal sensation. Tongue was midline. There was no drift. He had normal strength in bilateral upper extremities, triceps, finger extensors, FTI, APB. Best testing bilateral lower extremities had normal strength in iliopsoas with his knees up off the bed. Quadriceps, tibialis anterior, foot inversion, eversion. His hamstring normal on the left, about a 4+/5 on the right. DTRs are 2+ symmetric at the knees, trace in the legs. Toes are downgoing bilaterally. He has no ankle clonus. Tone was normal throughout. He has some slight diffuse edema. His abdomen is severely distended and very tight. Bowel sounds are positive. Pinprick was absent to the ankle bilaterally but vibratory sense and proprioception was intact. He is not ataxic on [id number]. Pinprick was also intact in the hands, the face and the scrotum. LABORATORY DATA Hematocrit 30. White count is normal. Platelet count 106. Hepatitis screen negative. JOSE negative. UA negative. Creatinine 1.61. BMP otherwise normal. Calcium normal. LFTs are normal. Ammonia level of 66. LDL cholesterol 101. B12 was normal. TSH slightly elevated. Folate level normal. CPK normal on 07/09/2017. IMAGING He had a cervical spine CT done which was normal. Head CT done in December of last year showed some facial fractures. head CT done on this admission negative. IMPRESSION I thought he actually looked fairly well neurologically. He does have some numbness in his in his feet bilaterally. 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 He needs to get up and ambulate more but his stomach is extremely distended. The narcotics could only worsen the ileus if that is what is causing his abdominal distension and I would defer to the med team if that needs to be stopped or not. He was under the impression that he had stomach cancer by I do not see any evidence of that. He has had since 2015 hepatosplenomegaly, how much is from his alcohol use is unclear, but I did suggest it could be from that. I do not see any evidence of Guillain-[place] syndrome. He has good reflexes and I will talk to physical therapy and see how he ambulates tomorrow but a lot of this could be from disuse and from his alcohol use and deconditioning. MD TERRANCE Devi/KALEB /5:04 PM /7:45 PM
--- NOTE | 2017-07-20 20:18 | MB ---
cc: DEMETRA HERNANDEZ DATE OF CONSULTATION 07/20/2017 HISTORY He is a 51-year-old left-handed man with stomach cancer, new diagnosis. He says he has been falling for three months, balance has been a bit off. I am seeing him for possible Guillain-[place] syndrome. He has been on the hospital since 06/29/2017 when he was admitted with heavy alcohol us. Came to the emergency room with abdominal pain, hernia repair in the middle of his abdomen, having pain there. Multiple cocktails a day with vodka and cranberry large. He has felt some weakness he says in his legs, unsteady gait for about 3 months. He has developed abdominal distension. He had alcohol withdrawal and ileus. Some hepatic encephalopathy. He ambulated 12 feet with physical therapy and the walker. I do not see any mention of stomach cancer in the chart. REVIEW OF SYSTEMS He denies any hypertension, diabetes, hypercholesterolemia, [place], CABG, cardiac arrhythmia, renal, hepatic or pulmonary disease, thyroid disease, lupus, ulcer, seizure or stroke. SOCIAL HISTORY He is a smoker. He denies any alcohol use but obviously he has been a heavy alcohol drinker. Lives by herself. FAMILY HISTORY Positive for cancer. Negative for seizure or stroke. CURRENT MEDICATIONS 1. Lactulose. 2. Urecholine. 3. As needed Ativan for anxiety. 4. Clonidine. 5. Reglan. 6. MiraLax. 7. Rifaximin. 8. Protonix. 9. Mucinex. 10. Catapres p.r.n. 11. Morphine p.r.n. 12. Ultram which he has been getting also. PHYSICAL EXAMINATION VITAL SIGNS: On exam afebrile, 70, 18, 129/78. NECK: There were no carotid bruits. CARDIOVASCULAR: Heart was regular rhythm. I do not detect a murmur. NEUROLOGIC: Pupils are equal, visual chavez are full. Extraocular movements intact without nystagmus. Face symmetric with normal sensation. Tongue was midline. There was no drift. He had normal strength in bilateral upper extremities, triceps, finger extensors, FTI, APB. Best testing bilateral lower extremities had normal strength in iliopsoas with his knees up off the bed. Quadriceps, tibialis anterior, foot inversion, eversion. His hamstring normal on the left, about a 4+/5 on the right. DTRs are 2+ symmetric at the knees, trace in the legs. Toes are downgoing bilaterally. He has no ankle clonus. Tone was normal throughout. He has some slight diffuse edema. His abdomen is severely distended and very tight. Bowel sounds are positive. Pinprick was absent to the ankle bilaterally but vibratory sense and proprioception was intact. He is not ataxic on [id number]. Pinprick was also intact in the hands, the face and the scrotum. LABORATORY DATA Hematocrit 30. White count is normal. Platelet count 106. Hepatitis screen negative. JOSE negative. UA negative. Creatinine 1.61. BMP otherwise normal. Calcium normal. LFTs are normal. Ammonia level of 66. LDL cholesterol 101. B12 was normal. TSH slightly elevated. Folate level normal. CPK normal on 07/09/2017. IMAGING He had a cervical spine CT done which was normal. Head CT done in December of last year showed some facial fractures. head CT done on this admission negative. IMPRESSION I thought he actually looked fairly well neurologically. He does have some numbness in his in his feet bilaterally. 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 He needs to get up and ambulate more but his stomach is extremely distended. The narcotics could only worsen the ileus if that is what is causing his abdominal distension and I would defer to the med team if that needs to be stopped or not. He was under the impression that he had stomach cancer by I do not see any evidence of that. He has had since 2015 hepatosplenomegaly, how much is from his alcohol use is unclear, but I did suggest it could be from that. I do not see any evidence of Guillain-[place] syndrome. He has good reflexes and I will talk to physical therapy and see how he ambulates tomorrow but a lot of this could be from disuse and from his alcohol use and deconditioning. MD TERRANCE Devi/KALEB /5:04 PM /7:45 PM
[2017-07-20] MEDS: ONDANSETRON HCL 4 MG/2 ML VIAL IVP PRN (22:09)
[2017-07-20] MEDS: PSYLLIUM FIBER SF/GF 6 GM POWD PKT PO SCH (22:13)
[2017-07-21] VITALS (9 sets, daily range): BP systolic 103–217; BP diastolic 55–106; PULSE 66–81; RESP 18–20; TEMP 97.4–98.1; O2SAT 93–97
[2017-07-21] MEDS: ONDANSETRON HCL 4 MG/2 ML VIAL IVP PRN (03:05)
[2017-07-21] MEDS: cloNIDine HCL 0.2 MG TAB PO SCH ×3 (05:20→22:47)
[2017-07-21] MEDS: BETHANECHOL CHL 25 MG TAB PO SCH ×3 (05:20→22:47)
[2017-07-21] MEDS: METOCLOPRAMIDE HCL 10 MG/2 ML VIAL IV PUSH SCH ×3 (05:21→22:48)
[2017-07-21] MEDS: traMADol HCL 50 MG TAB PO PRN ×2 (05:22→18:57)
[2017-07-21 07:09] LABS: HEMATOCRIT 30.1 % (39.0-51.0); HEMOGLOBIN 10.3 GM/DL (13.0-17.0); MEAN CELL VOLUME 103.3 FL (80.0-100.0); MEAN CORPUSCULAR HEMOGLOBIN 35.2 PG (27.0-34.0); MEAN CORPUSCULAR HGB CONC 34.1 % (32.0-36.0); MEAN PLATELET VOLUME 9.2 FL (7.0-11.0); PLATELET COUNT 130 TH/MM3 (150-450); RED BLOOD COUNT 2.91 MIL/MM3 (4.50-5.90); RED CELL DISTRIBUTION WIDTH 16.2 % (11.6-17.2)
[2017-07-21 07:43] LABS: ALBUMIN 2.3 GM/DL (3.4-5.0); AST (GOT) 35 U/L (15-37); BICARBONATE 25.4 MEQ/L (21.0-32.0); BLOOD UREA NITROGEN 14 MG/DL (7-18); CALCIUM 8.1 MG/DL (8.5-10.1); CHLORIDE 105 MEQ/L (98-107); CREATININE 1.64 MG/DL (0.60-1.30); GLOMERULAR FILTRATION RATE 45 ML/MIN (>89); GLUCOSE,RANDOM 111 MG/DL (74-106); SODIUM (NA) 139 MEQ/L (136-145)
--- NOTE | 2017-07-21 07:47 | HHI.PR ---
Objective Vital Signs Date Time Temp Pulse Resp B/P (MAP) Pulse Ox O2 Delivery O2 Flow Rate FiO2 07/21/17 04:00 97.9 81 18 110/55 (73) 93 07/21/17 02:16 80 07/20/17 20:00 97.8 71 18 131/71 (91) 92 07/20/17 16:00 97.6 73 18 126/69 (88) 93 07/20/17 12:00 98.1 70 18 129/78 (95) 93 07/20/17 08:40 70 07/20/17 08:00 97.8 69 18 113/94 (100) 94 I/O 07/20/17 07/20/17 07/20/17 07/21/17 07/21/17 07/21/17 07:00 15:00 23:00 07:00 15:00 23:00 # Voids 4 # Bowel Movements 3 Result Diagram: 07/21/17 0533 07/21/17 0533 Objective Remarks sound asleep Assessment and Plan Assessment and Plan imp i will dw PT and check standing bp a little weak r ham o/w i thought looked well neurowise Bharath Lama MD Jul 21, 2017 07:47
[2017-07-21 07:50] LABS: ALKALINE PHOSPHATASE 85 U/L (45-117); ALT (GPT) 8 U/L (12-78); TOTAL BILIRUBIN ADULT 1.7 MG/DL (0.2-1.0); TOTAL PROTEIN 6.9 GM/DL (6.4-8.2)
[2017-07-21] MEDS: REMOVE OLD PATCH T-DERMAL SCH (09:00)
[2017-07-21] MEDS: guaiFENesin E.R. 600 MG TAB PO SCH ×2 (09:48→21:31)
[2017-07-21] MEDS: DOCUSATE SODIUM 50 MG/SENNA 8.6 MG TAB PO SCH ×2 (09:48→21:31)
[2017-07-21] MEDS: THIAMINE HCL 100 MG TAB PO SCH (09:48)
[2017-07-21] MEDS: RIFAXIMIN 550 MG TAB PO SCH ×2 (09:48→21:31)
[2017-07-21] MEDS: NICOTINE 14 MG/24 HR PATCH T-DERMAL SCH (09:48)
[2017-07-21] MEDS: LACTULOSE SYRUP 20 GM/30 ML CUP PO SCH ×2 (09:48→21:32)
[2017-07-21] MEDS: PANTOPRAZOLE SODIUM 40 MG VIAL IV SCH ×2 (09:48→21:33)
[2017-07-21] MEDS: PSYLLIUM FIBER SF/GF 6 GM POWD PKT PO SCH ×2 (09:49→21:36)
[2017-07-21] MEDS: SODIUM CHLORIDE 0.9% FLUSH 10 ML FLUSH IV FLUSH SCH ×2 (09:49→21:33)
[2017-07-21] MEDS: POLYETHYLENE GLYCOL 17 GM PKG PO SCH (09:49)
--- NOTE | 2017-07-21 12:21 | HHI.PR ---
Subjective Remarks Patient is out of bed in chair today. No new complaints. He still complains of weakness. Neurology evaluation is appreciated. Neurology did not find neurologic findings to suggest Guillain-[place] syndrome. Objective Vital Signs Date Time Temp Pulse Resp B/P (MAP) Pulse Ox O2 Delivery O2 Flow Rate FiO2 07/21/17 08:00 97.7 78 20 123/64 (83) 94 121/61 (81) 07/21/17 04:00 97.9 81 18 110/55 (73) 93 07/21/17 02:16 80 07/20/17 20:00 97.8 71 18 131/71 (91) 92 07/20/17 16:00 97.6 73 18 126/69 (88) 93 I/O 07/20/17 07/20/17 07/20/17 07/21/17 07/21/17 07/21/17 06:59 14:59 22:59 06:59 14:59 22:59 # Voids 4 # Bowel Movements 3 Result Diagram: 07/21/17 0533 07/21/1733 Objective Remarks GENERAL: NAD, A&Ox3 HEAD: Normocephalic. NECK: Supple, trachea midline. No lymphadenopathy. EYES: No scleral icterus. No injection or drainage. CARDIOVASCULAR: Regular rate and rhythm without murmurs, gallops, or rubs. RESPIRATORY: Breath sounds equal bilaterally. No accessory muscle use. GASTROINTESTINAL: Abdomen soft, non-tender, nondistended. MUSCULOSKELETAL: No cyanosis, or edema. Lower extremity weakness. SKIN: Warm and dry. NEURO: No focal neurological deficitis. A/P Problem List: (1) Weakness ICD Code: R53.1 - Weakness (2) Acute kidney injury ICD Code: N17.9 - Acute kidney failure, unspecified (3) Alcohol use ICD Code: Z78.9 - Other specified health status Status: Acute Assessment and Plan Assessment and Plan 51 year old male admitted with ETOH withdraw and Ileus. Continue physical therapy. Ileus Improved Follow for any recurrence ETOH Withdraw Resolved Continue folic acid Continue thiamine Continue multivitamin DON No significant change for better or worse Not yet to baseline Follow renal function Hepatic Encephalopathy Continue Xifaxan GI Bleed CBC shows no evidence of active bleed Etiology had been gastritis and duodenitis Continue protonix Generalized Weakness PT Slow improvement No payor source for SNF Degree of weakness is greater than expected given patient's clinical presentation Neurologic findings were not suggestive of Guillain-[place] syndrome, per neurology Neurology following DVT Prophylaxis SCDs (high bleed risk) Discharge Planning To much weakness for safe discharge SNF not yet an option due to lack of payor source Franc Byrd MD Jul 21, 2017 12:21
--- NOTE | 2017-07-21 17:18 | HHI.NPPN ---
Subjective History of Present Illness 51-year-old male with a past medical history of cirrhosis of the liver, bronchial asthma, depression, hyperlipidemia, pancreatitis, Menendez's esophagus, chronic abdominal pain, possible history of gastric ulcer and varices, questionable esophageal cancer who was admitted with abdominal pain and distension. I was called to see the patient because of elevated BUN and creatinine. Additional Remarks Patient is alert, no abd. pain now, no SOB. Review of Systems General Constitutional: Fatigue Respiratory Lungs: Wheeze Cardiovascular Cardiac: CORTES Gastrointestinal Gastrointestinal: Abdominal Pain Objective Data Data Vital Signs Date Time Temp Pulse Resp B/P (MAP) Pulse Ox O2 Delivery O2 Flow Rate FiO2 07/21/17 16:00 98.1 77 20 118/64 (82) 96 07/21/17 12:00 97.4 71 20 103/60 (74) 95 07/21/17 08:00 97.7 78 20 123/64 (83) 94 121/61 (81) 07/21/17 08:00 78 07/21/17 04:00 97.9 81 18 110/55 (73) 93 07/21/17 02:16 80 07/20/17 20:00 97.8 71 18 131/71 (91) 92 -: 07/21/17 0533 07/21/17 0533 Physical Exam General Appearance: No Acute Distress, Anxious Throat Throat Exam: Oral Mucosa [place] & Moist Neck Neck Exam: Neck Supple Pulmonary Resp Exam: Breath Sounds Equal, Rhonchi, Decreased Bases Cardiology CV Exam: Regular, Normal Sinus Rhythm Gastrointestinal/Abdomen GI Exam: Soft, Bowel Sounds Present, Distended Extremeties Extremities Exam: Trace Edema Neurologic Neuro Exam: Alert, Awake, Oriented Assessment/Plan Assessment Summary: DON/Acute Renal Failure Problem List: (1) Acute kidney injury ICD Codes: N17.9 - Acute kidney failure, unspecified (2) Encephalopathy ICD Codes: G93.40 - Encephalopathy, unspecified (3) Anemia ICD Codes: D64.9 - Anemia, unspecified Status: Acute (4) Jaundice ICD Codes: R17 - Unspecified jaundice (5) Gastritis ICD Codes: K29.70 - Gastritis, unspecified, without bleeding Status: Acute (6) 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 Normal size kidneys and has Normal Na. in the urine. Urine Eosinophils is negative. Most likely has ATN causing DON. Has elevated Bilirubin. BP is stable, non oliguric. Follow the urine out put and BMP. Can be discharged from Nephrology, with follow up. Creatinine is same, 1.6. Linette Guerra MD Jul 21, 2017 17:18
[2017-07-22] VITALS (7 sets, daily range): BP systolic 102–128; BP diastolic 60–73; PULSE 62–72; RESP 16–20; TEMP 97.2–98.7; O2SAT 95–97
[2017-07-22] MEDS: METOCLOPRAMIDE HCL 10 MG/2 ML VIAL IV PUSH SCH ×3 (05:23→22:20)
[2017-07-22] MEDS: BETHANECHOL CHL 25 MG TAB PO SCH ×3 (05:24→22:20)
[2017-07-22] MEDS: traMADol HCL 50 MG TAB PO PRN (05:24)
[2017-07-22] MEDS: cloNIDine HCL 0.2 MG TAB PO SCH ×4 (05:24→22:20)
--- NOTE | 2017-07-22 07:15 | HHI.PR ---
Subjective Remarks pain all over can barely take a step with PT Objective Vital Signs Date Time Temp Pulse Resp B/P (MAP) Pulse Ox O2 Delivery O2 Flow Rate FiO2 07/22/17 04:00 97.7 70 18 118/60 (79) 97 07/22/17 00:00 97.2 62 18 102/60 (74) 95 07/21/17 21:31 66 07/21/17 20:00 97.6 70 18 120/60 (80) 95 07/21/17 16:00 98.1 77 20 118/64 (82) 96 07/21/17 12:00 97.4 71 20 103/60 (74) 95 07/21/17 08:00 97.7 78 20 123/64 (83) 94 121/61 (81) 07/21/17 08:00 78 I/O 07/21/17 07/21/17 07/21/17 07/22/17 07/22/17 07/22/17 07:00 15:00 23:00 07:00 15:00 23:00 Output Total 500 ml Balance -500 ml Output Urine Total 500 ml # Voids 4 2 # Bowel Movements 3 1 1 Result Diagram: 07/21/17 0533 07/21/17 0533 Objective Remarks alert ip nl bilat some inc tone ble mild cannot really take more than a mini 1/4 step with assist Assessment and Plan Assessment and Plan imp i dw PT poor gait unclear why check mri brai and cord check standing bp low keep monitoring a little weak r ham pain i am not rec narcotics try neurontin check crp rf oob to chair most of day plz dvt prophylaxis? defer to med team Bharath Lama MD Jul 22, 2017 07:15
[2017-07-22] MEDS: PSYLLIUM FIBER SF/GF 6 GM POWD PKT PO SCH ×2 (09:00→22:20)
[2017-07-22] MEDS: REMOVE OLD PATCH T-DERMAL SCH (09:00)
[2017-07-22] MEDS: LACTULOSE SYRUP 20 GM/30 ML CUP PO SCH ×2 (09:32→22:19)
[2017-07-22] MEDS: POLYETHYLENE GLYCOL 17 GM PKG PO SCH (09:34)
[2017-07-22] MEDS: NICOTINE 14 MG/24 HR PATCH T-DERMAL SCH (09:35)
[2017-07-22] MEDS: SODIUM CHLORIDE 0.9% FLUSH 10 ML FLUSH IV FLUSH SCH ×2 (09:36→22:21)
[2017-07-22] MEDS: guaiFENesin E.R. 600 MG TAB PO SCH ×2 (09:36→22:20)
[2017-07-22] MEDS: GABAPENTIN 300 MG CAP PO SCH ×3 (09:36→18:52)
[2017-07-22] MEDS: DOCUSATE SODIUM 50 MG/SENNA 8.6 MG TAB PO SCH ×2 (09:36→21:00)
[2017-07-22] MEDS: PANTOPRAZOLE SODIUM 40 MG VIAL IV SCH ×2 (09:36→22:19)
[2017-07-22] MEDS: RIFAXIMIN 550 MG TAB PO SCH ×2 (09:36→22:20)
[2017-07-22] MEDS: THIAMINE HCL 100 MG TAB PO SCH (09:36)
[2017-07-22 11:14] LABS: RHEUMATOID FACTOR SCREEN NEGATIVE (NEGATIVE)
[2017-07-22] MEDS ORDERED: GADODIAMIDE PF 287 MG/ML 20 ML VIAL (for RAD MRI) IVCONTRAST ONE (13:06)
--- NOTE | 2017-07-22 14:05 | RADRPT ---
EXAM DATE/TIME: 07/22/2017 12:06 [facility] COMPARISON: CT ABDOMEN & PELVIS W CONTRAST, June 29, 2017, 12:52. INDICATIONS : Myelopathy. MEDICAL HISTORY : Carcinoma, esophageal. Asthma SURGICAL HISTORY : Left eye surgery, Sinus surgery ENCOUNTER: Subsequent ACUITY: 3 weeks PAIN SCORE: 6/10 LOCATION: lumbar spine TECHNIQUE: Multiplanar multisequence MRI of the lumbar spine was performed without contrast. FINDINGS: The most caudal appearing lumbar vertebra is numbered as L5. VERTEBRAE: There is chronic endplate change at the anterior superior endplate of L3. Otherwise, bone marrow sign al is within normal limits. Vertebral body height is maintained. There is no anterolisthesis or retro listhesis. CONUS: Normal level and configuration. T12-L1: No disc herniation, canal stenosis, or neural foraminal stenosis. L1-L2: No disc herniation, canal stenosis, or neural foraminal stenosis. L2-L3: There is decreased disc height with disc desiccation and chronic endplate changes. A diffuse disc bul ge is present. No spinal canal stenosis or neural foraminal stenosis is present. L3-L4: There is mild disc desiccation. No disc herniation, canal stenosis, or neural foraminal stenosis is p resent. L4-L5: No disc herniation, canal stenosis, or neural foraminal stenosis. There is facet hypertrophy. L5-S1: No disc herniation, canal stenosis, or neural foraminal stenosis. Visualized paraspinous structures demonstrate varices in the left upper quadrant. CONCLUSION: 1. Mild degenerative disc disease at L2-L3. No spinal canal stenosis or neural foraminal stenosis is present. 2. Left upper quadrant varices. These were documented on prior CT from 06/29/4017 and are likely relat ed to chronic liver disease/cirrhosis. Nikko Cote MD on July 22, 2017 at 13:07 Board Certified Radiologist. This report was verified electronically.
--- NOTE | 2017-07-22 14:05 | RADRPT ---
EXAM DATE/TIME: 07/22/2017 12:06 [facility] COMPARISON: No previous studies available for comparison. INDICATIONS : Myelopathy. CONTRAST: 19 cc Omniscan (gadodiamide) IV MEDICAL HISTORY : Carcinoma, esophageal. Asthma SURGICAL HISTORY : Left eye surgery, Sinus surgery ENCOUNTER: Subsequent ACUITY: 3 weeks PAIN SCORE: 6/10 LOCATION: cervical TECHNIQUE: Multiplanar, multisequence MRI examination of the cervical spine was performed. FINDINGS: Image quality degraded by patient motion. VERTEBRAE: Normal vertebral body height. Bone marrow signal is within normal limits. ALIGNMENT: There is no anterolisthesis or retrolisthesis. CORD: Normal configuration and signal. POST FOSSA: The cerebellar tonsils are normal in position. POST-CONTRAST: No abnormal areas of enhancement are seen. The craniocervical junction and C1-C2 level demonstrate no abnormality. C2-C3: No disc herniation, canal stenosis, or neural foraminal stenosis. C3-C4: No disc herniation, canal stenosis, or neural foraminal stenosis. C4-C5: There is a small central disc osteophyte complex. No spinal canal stenosis or neural foraminal stenos is is present. C5-C6: Decreased disc height with a small posterior disc osteophyte complex diffusely. No spinal canal steno sis or significant neural foraminal narrowing is appreciated. C6-C7: Decreased disc height with minimal posterior disc osteophyte complex. No spinal canal stenosis or kaitlynn ral foraminal narrowing is appreciated. C7-T1: No disc herniation, canal stenosis, or neural foraminal stenosis. CONCLUSION: Degenerative disc disease at C5-C6 and C6-C7. However, no spinal canal stenosis or neural foraminal n arrowing is present. Spinal cord demonstrates no abnormality. Nikko Cote MD on July 22, 2017 at 13:39 Board Certified Radiologist. This report was verified electronically.
--- NOTE | 2017-07-22 14:05 | RADRPT ---
EXAM DATE/TIME: 07/22/2017 12:06 [place] COMPARISON: No previous studies available for comparison. INDICATIONS : Myelopathy. CONTRAST: 19 cc Omniscan (gadodiamide) IV MEDICAL HISTORY : Carcinoma, esophageal. Asthma SURGICAL HISTORY : Left eye surger, Sinus surgery ENCOUNTER: Subsequent ACUITY: 3 weeks PAIN SCORE: 6/10 LOCATION: thoracic spine TECHNIQUE: Multiplanar multisequence MRI of the thoracic spine was performed. FINDINGS: VERTEBRA: Normal vertebral body height. Homogeneous marrow signal. ALIGNMENT: Normal. CORD: Normal position and configuration. POST CONTRAST: No abnormal areas of contrast enhancement seen. T1-T2: Normal. T2-T3: The thecal sac has a normal diameter. No evidence of disc bulge or protrusion. T3-T4: The thecal sac has a normal diameter. No evidence of disc bulge or protrusion. T4-T5: The thecal sac has a normal diameter. No evidence of disc bulge or protrusion. T5-T6: The thecal sac has a normal diameter. No evidence of disc bulge or protrusion. T6-T7: The thecal sac has a normal diameter. No evidence of disc bulge or protrusion. T7-T8: The thecal sac has a normal diameter. No evidence of disc bulge or protrusion. T8-T9: The thecal sac has a normal diameter. No evidence of disc bulge or protrusion. T9-T10: The thecal sac has a normal diameter. No evidence of disc bulge or protrusion. T10-T11: The thecal sac has a normal diameter. No evidence of disc bulge or protrusion. T11-T12: The thecal sac has a normal diameter. No evidence of disc bulge or protrusion. T12-L1: The thecal sac has a normal diameter. No evidence of disc bulge or protrusion. CONCLUSION: 1. Small bilateral pleural effusions. 2. Patent central canal. Caesar Shafer Jr., MD on July 22, 2017 at 13:31 Board Certified Radiologist. This report was verified electronically.
--- NOTE | 2017-07-22 14:25 | HHI.HCPN ---
Reason for visit a. To assist with evaluation and management of symptoms including: pain, encephalopathy, and dyspnea b. To assist medical decision maker(s) with: better understanding of current medical conditions; weighing benefits/burdens of medical treatment options; making medical treatment decisions. . Subjective/Interval History Patient for follow up today, he is awake, alert, and oriented x 3. He states his abdominal pain has improved, he reports having liquid bowel movements. He also reports his nausea has resolved and his appetite has improved. The patient states he still feels weak, he states his lower extremities feel weaker compared to his upper extremities, he does endorse he has been working with physical therapy and was able to ambulate about 12 feet today. Neurology was consulted to evaluate patient for generalized weakness rule out Guillain Dumont, MRI of brain and spinal cord ordered, results pending. Advance Directives Health Care Surrogate: Copy in medical record Advance Directive Specifics Date completed: 07/13/17 . Health Care Surrogate(s): German Martin (son) [phone] Jeanine Salgado (former spouse) [phone] Documented care wishes: No known documented care wishes. . Objective Vital Signs Date Time Temp Pulse Resp B/P (MAP) Pulse Ox O2 Delivery O2 Flow Rate FiO2 07/22/17 08:33 98.0 68 19 113/64 (80) 95 07/22/17 04:00 97.7 70 18 118/60 (79) 97 07/22/17 00:00 97.2 62 18 102/60 (74) 95 07/21/17 21:31 66 07/21/17 20:00 97.6 70 18 120/60 (80) 95 07/21/17 16:00 98.1 77 20 118/64 (82) 96 Intake & Output 07/22/17 07/22/17 07:00 19:00 # Voids 2 2 # Bowel Movements 2 . Physical Exam CONSTITUTIONAL/GENERAL: This is an adequately nourished, middle aged male in no acute distress. TUBES/LINES/DRAINS: PIV 2 EYES: Pupils equal and round. No injection or drainage. ENT: Hearing grossly normal. Nose without bleeding or purulent drainage. CARDIOVASCULAR: Regular rate and rhythm without murmurs, gallops, or rubs. No JVD. Peripheral pulses symmetric. RESPIRATORY/CHEST: Breath sounds diminished bilaterally. GASTROINTESTINAL: Abdomen soft, nontender. Active bowel sounds. GENITOURINARY: Voids. MUSCULOSKELETAL: Extremities without clubbing, cyanosis, or edema. No mottling or clubbing. NEUROLOGICAL: Alert and awake. Oriented x 3. Follows commands. PSYCHIATRIC: No obvious anxiety/depression. no apparent hallucinations or other psychotic thought process. . Diagnostic Tests Laboratory Laboratory Tests Test 07/20/17 05:19 07/21/17 05:33 07/22/17 08:45 Blood Urea Nitrogen 14 MG/DL (7-18) 14 MG/DL (7-18) Creatinine 1.61 MG/DL (0.60-1.30) 1.64 MG/DL (0.60-1.30) Random Glucose 89 MG/DL (74-106) 111 MG/DL (74-106) Calcium Level 8.2 MG/DL (8.5-10.1) 8.1 MG/DL (8.5-10.1) Sodium Level 140 MEQ/L (136-145) 139 MEQ/L (136-145) Potassium Level 3.8 MEQ/L (3.5-5.1) 4.1 MEQ/L (3.5-5.1) Chloride Level 106 MEQ/L (98-107) 105 MEQ/L (98-107) Carbon Dioxide Level 26.9 MEQ/L (21.0-32.0) 25.4 MEQ/L (21.0-32.0) Anion Gap 7 MEQ/L (5-15) 9 MEQ/L (5-15) Estimat Glomerular Filtration Rate 46 ML/MIN (>89) 45 ML/MIN (>89) White Blood Count 9.0 TH/MM3 (4.0-11.0) Red Blood Count 2.91 MIL/MM3 (4.50-5.90) Hemoglobin 10.3 GM/DL (13.0-17.0) Hematocrit 30.1 % (39.0-51.0) Mean Corpuscular Volume 103.3 FL (80.0-100.0) Mean Corpuscular Hemoglobin 35.2 PG (27.0-34.0) Mean Corpuscular Hemoglobin Concent 34.1 % (32.0-36.0) Red Cell Distribution Width 16.2 % (11.6-17.2) Platelet Count 130 TH/MM3 (150-450) Mean Platelet Volume 9.2 FL (7.0-11.0) Total Protein 6.9 GM/DL (6.4-8.2) Albumin 2.3 GM/DL (3.4-5.0) Alkaline Phosphatase 85 U/L (45-117) Aspartate Amino Transf (AST/SGOT) 35 U/L (15-37) Alanine Aminotransferase (ALT/SGPT) 8 U/L (12-78) Total Bilirubin 1.7 MG/DL (0.2-1.0) Erythrocyte Sedimentation Rate 74 mm/hr (0-15) C-Reactive Protein 1.10 MG/DL (0.00-0.30) Rheumatoid Factor Screen NEGATIVE (NEGATIVE) Rheumatoid Factor Titer IU/ML (0.0-14.9) Result Diagram: 07/21/17 0533 07/21/17 0533 Procedures 06/30/17: EGD . Assessment and Plan Disease Oriented Problem List: (1) Gastrointestinal bleed (2) Esophageal varices (3) Tobacco abuse (4) Jaundice (5) Gastritis (6) Menendez esophagus Symptom Scale: (1) Pain (2) Dyspnea (3) Encephalopathy Pertinent Non-Medical Issues Psychosocial:Patient is originally from [facility]. He moved to [place] approximately 20 years ago. 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 Patient is but has 4 adult children from this marriage. (Abbey Donnelly, Nikko and Sergio). Apparently he also has a 14-year- old daughter from a different relationship; she lives in [place]. Spiritual: Adventist ariana Legal: Patient is not . He has 4 adult children (Andrzej, Abbey, Nikko and Sergio). Per [place] statutes, in the absence of written advanced directives healthcare proxy decision making would fall to the majority of these 4 children. Son, Andrzej, was present at bedside. He states his siblings would not want to participate in medical decision making; he was willing to provide names and numbers so each could be given the opportunity to opt out of healthcare proxy decision-making. Messages were left for the other 3 siblings ( Abbey, Nikko, Sergio), awaiting return phone calls. Ethical issues impacting care: No known ethical issues impacting care at this time . . Important Contacts Major ([facility]), son: [phone] Tea Calhoun, spouse/former spouse: [phone] Abbey, daughter [phone] Nikko, son, Sergio, son: [phone] . Prognosis Patient is a 51-year-old male with multiple comorbid conditions. He was admitted with suspected GI bleed, persistent ileus, liver cirrhosis/elevated LFTs, thrombocytopenia/coagulopathy and hepatic encephalopathy. Now being treated for pneumonia. He is not a candidate for liver transplant. He is at high risk for ongoing complications and decline. . Code Status: Full Code Plan * FULL CODE * Decision-making: Patient has waxing and waning neurological status. Suggest shared decision making with patient's son German Martin ([facility]). * GOALS: Aggressive. * Symptom management - encephalopathy: Improved. Hyperalbuminemia/liver cirrhosis/elevated LFTs. Patient on lactulose 30mL TID, rifaximin 550mg BID. No recommendations at this time. * Symptom management - dyspnea:Resolved. On room air. Duonebs 1 ampule q 2hr PRN for shortness of breath. No recommendations. * Symptom management- pain: Multifactorial, patient's abdominal pain has resolved, now C/O generalized pain. Gabapentin 300mg TID added 07/22. Morphine 2mg q 3hr PRN for pain ordered, last dose 07/08/17 @ 0843, tramadol 100mg q 4 hr PRN for pain, last dose 07/22/17 @ 0524, 2 doses utilized in the past 24 hours. * Palliative care will continue to follow this patient throughout his hospitalization to establish trust, assist with symptom management and clarification of medical treatment goals. . Attestation To help prompt me to consider important information that might be impacting today's encounter and assessment, information from prior notes written by myself or my colleagues may have been "brought forward" into today's note. My signature on this note, however, is an attestation that I personally performed the exam, history, and/or decision-making noted today, and, unless otherwise indicated, the interactions with patient, family, and staff as well as the review of records all occurred today. I also attest that the listed assessment and stated plan reflect my best clinical judgment today based on the combination of historical information, prior notes, and today's exam/ interactions. When time spent is documented, it refers only to time spent today by the signer, or if indicated, combined time spent today by collaborating physician/nurse practitioner. Dinora Lock Jul 22, 2017 14:25
--- NOTE | 2017-07-22 14:25 | HHI.HCPN ---
Reason for visit a. To assist with evaluation and management of symptoms including: pain, encephalopathy, and dyspnea b. To assist medical decision maker(s) with: better understanding of current medical conditions; weighing benefits/burdens of medical treatment options; making medical treatment decisions. . Subjective/Interval History Patient for follow up today, he is awake, alert, and oriented x 3. He states his abdominal pain has improved, he reports having liquid bowel movements. He also reports his nausea has resolved and his appetite has improved. The patient states he still feels weak, he states his lower extremities feel weaker compared to his upper extremities, he does endorse he has been working with physical therapy and was able to ambulate about 12 feet today. Neurology was consulted to evaluate patient for generalized weakness rule out Guillain Winn, MRI of brain and spinal cord ordered, results pending. Advance Directives Health Care Surrogate: Copy in medical record Advance Directive Specifics Date completed: 07/13/17 . Health Care Surrogate(s): German Martin (son) [phone] Jeanine Salgado (former spouse) [phone] Documented care wishes: No known documented care wishes. . Objective Vital Signs Date Time Temp Pulse Resp B/P (MAP) Pulse Ox O2 Delivery O2 Flow Rate FiO2 07/22/17 08:33 98.0 68 19 113/64 (80) 95 07/22/17 04:00 97.7 70 18 118/60 (79) 97 07/22/17 00:00 97.2 62 18 102/60 (74) 95 07/21/17 21:31 66 07/21/17 20:00 97.6 70 18 120/60 (80) 95 07/21/17 16:00 98.1 77 20 118/64 (82) 96 Intake & Output 07/22/17 07/22/17 07:00 19:00 # Voids 2 2 # Bowel Movements 2 . Physical Exam CONSTITUTIONAL/GENERAL: This is an adequately nourished, middle aged male in no acute distress. TUBES/LINES/DRAINS: PIV 2 EYES: Pupils equal and round. No injection or drainage. ENT: Hearing grossly normal. Nose without bleeding or purulent drainage. CARDIOVASCULAR: Regular rate and rhythm without murmurs, gallops, or rubs. No JVD. Peripheral pulses symmetric. RESPIRATORY/CHEST: Breath sounds diminished bilaterally. GASTROINTESTINAL: Abdomen soft, nontender. Active bowel sounds. GENITOURINARY: Voids. MUSCULOSKELETAL: Extremities without clubbing, cyanosis, or edema. No mottling or clubbing. NEUROLOGICAL: Alert and awake. Oriented x 3. Follows commands. PSYCHIATRIC: No obvious anxiety/depression. no apparent hallucinations or other psychotic thought process. . Diagnostic Tests Laboratory Laboratory Tests Test 07/20/17 05:19 07/21/17 05:33 07/22/17 08:45 Blood Urea Nitrogen 14 MG/DL (7-18) 14 MG/DL (7-18) Creatinine 1.61 MG/DL (0.60-1.30) 1.64 MG/DL (0.60-1.30) Random Glucose 89 MG/DL (74-106) 111 MG/DL (74-106) Calcium Level 8.2 MG/DL (8.5-10.1) 8.1 MG/DL (8.5-10.1) Sodium Level 140 MEQ/L (136-145) 139 MEQ/L (136-145) Potassium Level 3.8 MEQ/L (3.5-5.1) 4.1 MEQ/L (3.5-5.1) Chloride Level 106 MEQ/L (98-107) 105 MEQ/L (98-107) Carbon Dioxide Level 26.9 MEQ/L (21.0-32.0) 25.4 MEQ/L (21.0-32.0) Anion Gap 7 MEQ/L (5-15) 9 MEQ/L (5-15) Estimat Glomerular Filtration Rate 46 ML/MIN (>89) 45 ML/MIN (>89) White Blood Count 9.0 TH/MM3 (4.0-11.0) Red Blood Count 2.91 MIL/MM3 (4.50-5.90) Hemoglobin 10.3 GM/DL (13.0-17.0) Hematocrit 30.1 % (39.0-51.0) Mean Corpuscular Volume 103.3 FL (80.0-100.0) Mean Corpuscular Hemoglobin 35.2 PG (27.0-34.0) Mean Corpuscular Hemoglobin Concent 34.1 % (32.0-36.0) Red Cell Distribution Width 16.2 % (11.6-17.2) Platelet Count 130 TH/MM3 (150-450) Mean Platelet Volume 9.2 FL (7.0-11.0) Total Protein 6.9 GM/DL (6.4-8.2) Albumin 2.3 GM/DL (3.4-5.0) Alkaline Phosphatase 85 U/L (45-117) Aspartate Amino Transf (AST/SGOT) 35 U/L (15-37) Alanine Aminotransferase (ALT/SGPT) 8 U/L (12-78) Total Bilirubin 1.7 MG/DL (0.2-1.0) Erythrocyte Sedimentation Rate 74 mm/hr (0-15) C-Reactive Protein 1.10 MG/DL (0.00-0.30) Rheumatoid Factor Screen NEGATIVE (NEGATIVE) Rheumatoid Factor Titer IU/ML (0.0-14.9) Result Diagram: 07/21/17 0533 07/21/17 0533 Procedures 06/30/17: EGD . Assessment and Plan Disease Oriented Problem List: (1) Gastrointestinal bleed (2) Esophageal varices (3) Tobacco abuse (4) Jaundice (5) Gastritis (6) Menendez esophagus Symptom Scale: (1) Pain (2) Dyspnea (3) Encephalopathy Pertinent Non-Medical Issues Psychosocial:Patient is originally from [facility]. He moved to [place] approximately 20 years ago. 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 Patient is but has 4 adult children from this marriage. (Abbey Donnelly, Nikko and Sergio). Apparently he also has a 14-year- old daughter from a different relationship; she lives in [place]. Spiritual: Sabianism ariana Legal: Patient is not . He has 4 adult children (Andrzej, Abbey, Nikko and Sergio). Per [place] statutes, in the absence of written advanced directives healthcare proxy decision making would fall to the majority of these 4 children. Son, Andrzej, was present at bedside. He states his siblings would not want to participate in medical decision making; he was willing to provide names and numbers so each could be given the opportunity to opt out of healthcare proxy decision-making. Messages were left for the other 3 siblings ( Abbey, Nikko, Sergio), awaiting return phone calls. Ethical issues impacting care: No known ethical issues impacting care at this time . . Important Contacts Major ([facility]), son: [phone] Tea Calhoun, spouse/former spouse: [phone] Abbey, daughter [phone] Nikko, son, Sergio, son: [phone] . Prognosis Patient is a 51-year-old male with multiple comorbid conditions. He was admitted with suspected GI bleed, persistent ileus, liver cirrhosis/elevated LFTs, thrombocytopenia/coagulopathy and hepatic encephalopathy. Now being treated for pneumonia. He is not a candidate for liver transplant. He is at high risk for ongoing complications and decline. . Code Status: Full Code Plan * FULL CODE * Decision-making: Patient has waxing and waning neurological status. Suggest shared decision making with patient's son German Martin ([facility]). * GOALS: Aggressive. * Symptom management - encephalopathy: Improved. Hyperalbuminemia/liver cirrhosis/elevated LFTs. Patient on lactulose 30mL TID, rifaximin 550mg BID. No recommendations at this time. * Symptom management - dyspnea:Resolved. On room air. Duonebs 1 ampule q 2hr PRN for shortness of breath. No recommendations. * Symptom management- pain: Multifactorial, patient's abdominal pain has resolved, now C/O generalized pain. Gabapentin 300mg TID added 07/22. Morphine 2mg q 3hr PRN for pain ordered, last dose 07/08/17 @ 0843, tramadol 100mg q 4 hr PRN for pain, last dose 07/22/17 @ 0524, 2 doses utilized in the past 24 hours. * Palliative care will continue to follow this patient throughout his hospitalization to establish trust, assist with symptom management and clarification of medical treatment goals. . Attestation To help prompt me to consider important information that might be impacting today's encounter and assessment, information from prior notes written by myself or my colleagues may have been "brought forward" into today's note. My signature on this note, however, is an attestation that I personally performed the exam, history, and/or decision-making noted today, and, unless otherwise indicated, the interactions with patient, family, and staff as well as the review of records all occurred today. I also attest that the listed assessment and stated plan reflect my best clinical judgment today based on the combination of historical information, prior notes, and today's exam/ interactions. When time spent is documented, it refers only to time spent today by the signer, or if indicated, combined time spent today by collaborating physician/nurse practitioner. Dinora Lock Jul 22, 2017 14:25
--- NOTE | 2017-07-22 14:25 | HHI.HCPN ---
Reason for visit a. To assist with evaluation and management of symptoms including: pain, encephalopathy, and dyspnea b. To assist medical decision maker(s) with: better understanding of current medical conditions; weighing benefits/burdens of medical treatment options; making medical treatment decisions. . Subjective/Interval History Patient for follow up today, he is awake, alert, and oriented x 3. He states his abdominal pain has improved, he reports having liquid bowel movements. He also reports his nausea has resolved and his appetite has improved. The patient states he still feels weak, he states his lower extremities feel weaker compared to his upper extremities, he does endorse he has been working with physical therapy and was able to ambulate about 12 feet today. Neurology was consulted to evaluate patient for generalized weakness rule out Guillain Vaughn, MRI of brain and spinal cord ordered, results pending. Advance Directives Health Care Surrogate: Copy in medical record Advance Directive Specifics Date completed: 07/13/17 . Health Care Surrogate(s): German Martin (son) [phone] Jeanine Salgado (former spouse) [phone] Documented care wishes: No known documented care wishes. . Objective Vital Signs Date Time Temp Pulse Resp B/P (MAP) Pulse Ox O2 Delivery O2 Flow Rate FiO2 07/22/17 08:33 98.0 68 19 113/64 (80) 95 07/22/17 04:00 97.7 70 18 118/60 (79) 97 07/22/17 00:00 97.2 62 18 102/60 (74) 95 07/21/17 21:31 66 07/21/17 20:00 97.6 70 18 120/60 (80) 95 07/21/17 16:00 98.1 77 20 118/64 (82) 96 Intake & Output 07/22/17 07/22/17 07:00 19:00 # Voids 2 2 # Bowel Movements 2 . Physical Exam CONSTITUTIONAL/GENERAL: This is an adequately nourished, middle aged male in no acute distress. TUBES/LINES/DRAINS: PIV 2 EYES: Pupils equal and round. No injection or drainage. ENT: Hearing grossly normal. Nose without bleeding or purulent drainage. CARDIOVASCULAR: Regular rate and rhythm without murmurs, gallops, or rubs. No JVD. Peripheral pulses symmetric. RESPIRATORY/CHEST: Breath sounds diminished bilaterally. GASTROINTESTINAL: Abdomen soft, nontender. Active bowel sounds. GENITOURINARY: Voids. MUSCULOSKELETAL: Extremities without clubbing, cyanosis, or edema. No mottling or clubbing. NEUROLOGICAL: Alert and awake. Oriented x 3. Follows commands. PSYCHIATRIC: No obvious anxiety/depression. no apparent hallucinations or other psychotic thought process. . Diagnostic Tests Laboratory Laboratory Tests Test 07/20/17 05:19 07/21/17 05:33 07/22/17 08:45 Blood Urea Nitrogen 14 MG/DL (7-18) 14 MG/DL (7-18) Creatinine 1.61 MG/DL (0.60-1.30) 1.64 MG/DL (0.60-1.30) Random Glucose 89 MG/DL (74-106) 111 MG/DL (74-106) Calcium Level 8.2 MG/DL (8.5-10.1) 8.1 MG/DL (8.5-10.1) Sodium Level 140 MEQ/L (136-145) 139 MEQ/L (136-145) Potassium Level 3.8 MEQ/L (3.5-5.1) 4.1 MEQ/L (3.5-5.1) Chloride Level 106 MEQ/L (98-107) 105 MEQ/L (98-107) Carbon Dioxide Level 26.9 MEQ/L (21.0-32.0) 25.4 MEQ/L (21.0-32.0) Anion Gap 7 MEQ/L (5-15) 9 MEQ/L (5-15) Estimat Glomerular Filtration Rate 46 ML/MIN (>89) 45 ML/MIN (>89) White Blood Count 9.0 TH/MM3 (4.0-11.0) Red Blood Count 2.91 MIL/MM3 (4.50-5.90) Hemoglobin 10.3 GM/DL (13.0-17.0) Hematocrit 30.1 % (39.0-51.0) Mean Corpuscular Volume 103.3 FL (80.0-100.0) Mean Corpuscular Hemoglobin 35.2 PG (27.0-34.0) Mean Corpuscular Hemoglobin Concent 34.1 % (32.0-36.0) Red Cell Distribution Width 16.2 % (11.6-17.2) Platelet Count 130 TH/MM3 (150-450) Mean Platelet Volume 9.2 FL (7.0-11.0) Total Protein 6.9 GM/DL (6.4-8.2) Albumin 2.3 GM/DL (3.4-5.0) Alkaline Phosphatase 85 U/L (45-117) Aspartate Amino Transf (AST/SGOT) 35 U/L (15-37) Alanine Aminotransferase (ALT/SGPT) 8 U/L (12-78) Total Bilirubin 1.7 MG/DL (0.2-1.0) Erythrocyte Sedimentation Rate 74 mm/hr (0-15) C-Reactive Protein 1.10 MG/DL (0.00-0.30) Rheumatoid Factor Screen NEGATIVE (NEGATIVE) Rheumatoid Factor Titer IU/ML (0.0-14.9) Result Diagram: 07/21/17 0533 07/21/17 0533 Procedures 06/30/17: EGD . Assessment and Plan Disease Oriented Problem List: (1) Gastrointestinal bleed (2) Esophageal varices (3) Tobacco abuse (4) Jaundice (5) Gastritis (6) Menendez esophagus Symptom Scale: (1) Pain (2) Dyspnea (3) Encephalopathy Pertinent Non-Medical Issues Psychosocial:Patient is originally from [facility]. He moved to [place] approximately 20 years ago. 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 Patient is but has 4 adult children from this marriage. (Abbey Donnelly, Nikko and Sergio). Apparently he also has a 14-year- old daughter from a different relationship; she lives in [place]. Spiritual: Sabianist ariana Legal: Patient is not . He has 4 adult children (Andrzje, Abbey, Nikko and Sergio). Per [place] statutes, in the absence of written advanced directives healthcare proxy decision making would fall to the majority of these 4 children. Son, Andrzej, was present at bedside. He states his siblings would not want to participate in medical decision making; he was willing to provide names and numbers so each could be given the opportunity to opt out of healthcare proxy decision-making. Messages were left for the other 3 siblings ( Abbey, Nikko, Sergio), awaiting return phone calls. Ethical issues impacting care: No known ethical issues impacting care at this time . . Important Contacts Major ([facility]), son: [phone] Tea Calhoun, spouse/former spouse: [phone] Abbey, daughter [phone] Nikko, son, Sergio, son: [phone] . Prognosis Patient is a 51-year-old male with multiple comorbid conditions. He was admitted with suspected GI bleed, persistent ileus, liver cirrhosis/elevated LFTs, thrombocytopenia/coagulopathy and hepatic encephalopathy. Now being treated for pneumonia. He is not a candidate for liver transplant. He is at high risk for ongoing complications and decline. . Code Status: Full Code Plan * FULL CODE * Decision-making: Patient has waxing and waning neurological status. Suggest shared decision making with patient's son German Martin ([facility]). * GOALS: Aggressive. * Symptom management - encephalopathy: Improved. Hyperalbuminemia/liver cirrhosis/elevated LFTs. Patient on lactulose 30mL TID, rifaximin 550mg BID. No recommendations at this time. * Symptom management - dyspnea:Resolved. On room air. Duonebs 1 ampule q 2hr PRN for shortness of breath. No recommendations. * Symptom management- pain: Multifactorial, patient's abdominal pain has resolved, now C/O generalized pain. Gabapentin 300mg TID added 07/22. Morphine 2mg q 3hr PRN for pain ordered, last dose 07/08/17 @ 0843, tramadol 100mg q 4 hr PRN for pain, last dose 07/22/17 @ 0524, 2 doses utilized in the past 24 hours. * Palliative care will continue to follow this patient throughout his hospitalization to establish trust, assist with symptom management and clarification of medical treatment goals. . Attestation To help prompt me to consider important information that might be impacting today's encounter and assessment, information from prior notes written by myself or my colleagues may have been "brought forward" into today's note. My signature on this note, however, is an attestation that I personally performed the exam, history, and/or decision-making noted today, and, unless otherwise indicated, the interactions with patient, family, and staff as well as the review of records all occurred today. I also attest that the listed assessment and stated plan reflect my best clinical judgment today based on the combination of historical information, prior notes, and today's exam/ interactions. When time spent is documented, it refers only to time spent today by the signer, or if indicated, combined time spent today by collaborating physician/nurse practitioner. Dinora Lock Jul 22, 2017 14:25
--- NOTE | 2017-07-22 14:59 | RADRPT ---
EXAM DATE/TIME: 07/22/2017 12:06 [facility] COMPARISON: No previous studies available for comparison. INDICATIONS : CVA. CONTRAST: 19 cc Omniscan (gadodiamide) IV MEDICAL HISTORY : Carcinoma, esophageal. Asthma SURGICAL HISTORY : Left eye surgery, Sinus surgery ENCOUNTER: Subsequent ACUITY: 3 weeks PAIN SCORE: LOCATION: cranial TECHNIQUE: Multiplanar, multisequence MRI of the brain was performed both prior to and following the administrat ion of paramagnetic contrast. FINDINGS: CEREBRUM: Minimal periventricular white matter changes are noted. Ventricle size is appropriate. There are no extra-axial fluid collections appreciated. WHITE MATTER: Minimal periventricular white matter changes. POSTERIOR FOSSA: The cerebellum and brainstem are intact. The 4th ventricle is midline. The cerebellopontine angle is unremarkable. The cerebellar tonsils are normal in position. DIFFUSION IMAGING: No focal areas of restricted diffusion are seen. No evidence of acute infarction. EXTRACRANIAL: The visualized portions of the orbits and paranasal sinuses are unremarkable. POST-CONTRAST: No abnormal areas of parenchymal or dural enhancement. No evidence of blood-brain barrier breakdown. CONCLUSION: Negative MRI of the brain for acute process. I do not see evidence for an ischemic event. Colten Nelson MD FACR on July 22, 2017 at 14:09 Board Certified Radiologist. This report was verified electronically.
--- NOTE | 2017-07-22 15:38 | HHI.PR ---
Subjective Remarks Improving slowly with functionality. Able to ambulate 12 feet today. Patient has had bowel movements today. He reports his ileus symptoms are improving. Objective Vital Signs Date Time Temp Pulse Resp B/P (MAP) Pulse Ox O2 Delivery O2 Flow Rate FiO2 07/22/17 14:17 97.2 72 20 112/67 (82) 97 07/22/17 08:33 98.0 68 19 113/64 (80) 95 07/22/17 04:00 97.7 70 18 118/60 (79) 97 07/22/17 00:00 97.2 62 18 102/60 (74) 95 07/21/17 21:31 66 07/21/17 20:00 97.6 70 18 120/60 (80) 95 07/21/17 16:00 98.1 77 20 118/64 (82) 96 I/O 07/21/17 07/21/17 07/21/17 07/22/17 07/22/17 07/22/17 06:59 14:59 22:59 06:59 14:59 22:59 Intake Total 360 ml Output Total 500 ml Balance -500 ml 360 ml Intake Oral 360 ml Output Urine Total 500 ml # Voids 4 2 4 # Bowel Movements 3 1 1 Result Diagram: 07/21/1753207/21/17532 Objective Remarks GENERAL: NAD, A&Ox3 HEAD: Normocephalic. NECK: Supple, trachea midline. No lymphadenopathy. EYES: No scleral icterus. No injection or drainage. CARDIOVASCULAR: Regular rate and rhythm without murmurs, gallops, or rubs. RESPIRATORY: Breath sounds equal bilaterally. No accessory muscle use. GASTROINTESTINAL: Abdomen soft, non-tender, nondistended. MUSCULOSKELETAL: No cyanosis, or edema. Lower extremity weakness. SKIN: Warm and dry. NEURO: No focal neurological deficitis. A/P Problem List: (1) Weakness ICD Code: R53.1 - Weakness (2) Acute kidney injury ICD Code: N17.9 - Acute kidney failure, unspecified (3) Alcohol use ICD Code: Z78.9 - Other specified health status Status: Acute Assessment and Plan Assessment and Plan 51 year old male admitted with ETOH withdraw and Ileus. Continue physical therapy. Continue to monitor for continued bowel movements and improvement in GI symptoms. Ileus Improved Follow for any recurrence ETOH Withdraw Resolved Continue folic acid Continue thiamine Continue multivitamin DON No significant change for better or worse Not yet to baseline Follow renal function Hepatic Encephalopathy Continue Xifaxan GI Bleed CBC shows no evidence of active bleed Etiology had been gastritis and duodenitis Continue protonix Generalized Weakness PT Slow improvement No payor source for SNF Degree of weakness is greater than expected given patient's clinical presentation Neurologic findings were not suggestive of Guillain-Segovia syndrome, per neurology Neurology following DVT Prophylaxis SCDs (high bleed risk) Discharge Planning To much weakness for safe discharge SNF not yet an option due to lack of payor source Franc Byrd MD Jul 22, 2017 15:38
--- NOTE | 2017-07-22 17:21 | HHI.NPPN ---
Subjective History of Present Illness 51-year-old male with a past medical history of cirrhosis of the liver, bronchial asthma, depression, hyperlipidemia, pancreatitis, Menendez's esophagus, chronic abdominal pain, possible history of gastric ulcer and varices, questionable esophageal cancer who was admitted with abdominal pain and distension. I was called to see the patient because of elevated BUN and creatinine. Additional Remarks Patient is alert, no abd. pain now, no SOB, clinically same. Review of Systems General Constitutional: Fatigue Respiratory Lungs: Wheeze Cardiovascular Cardiac: CORTES Gastrointestinal Gastrointestinal: Abdominal Pain Objective Data Data 07/22/17 07/23/17 19:00 07:00 Intake Total 360 ml Balance 360 ml Intake Oral 360 ml # Voids 4 Vital Signs Date Time Temp Pulse Resp B/P (MAP) Pulse Ox O2 Delivery O2 Flow Rate FiO2 07/22/17 16:32 97.9 72 20 117/62 (80) 96 07/22/17 14:17 97.2 72 20 112/67 (82) 97 07/22/17 08:33 98.0 68 19 113/64 (80) 95 07/22/17 08:00 69 07/22/17 04:00 97.7 70 18 118/60 (79) 97 07/22/17 00:00 97.2 62 18 102/60 (74) 95 07/21/17 21:31 66 07/21/17 20:00 97.6 70 18 120/60 (80) 95 -: 07/21/17 0533 07/21/17 0533 Physical Exam General Appearance: No Acute Distress, Anxious Throat Throat Exam: Oral Mucosa [place] & Moist Neck Neck Exam: Neck Supple Pulmonary Resp Exam: Breath Sounds Equal, Rhonchi, Decreased Bases Cardiology CV Exam: Regular, Normal Sinus Rhythm Gastrointestinal/Abdomen GI Exam: Soft, Bowel Sounds Present, Distended Extremeties Extremities Exam: Trace Edema Neurologic Neuro Exam: Alert, Awake, Oriented Assessment/Plan Assessment Summary: DON/Acute Renal Failure Problem List: (1) Acute kidney injury ICD Codes: N17.9 - Acute kidney failure, unspecified (2) Encephalopathy ICD Codes: G93.40 - Encephalopathy, unspecified (3) Anemia ICD Codes: D64.9 - Anemia, unspecified Status: Acute (4) Jaundice ICD Codes: R17 - Unspecified jaundice (5) Gastritis ICD Codes: K29.70 - Gastritis, unspecified, without bleeding Status: Acute (6) 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 Normal size kidneys and has Normal Na. in the urine. Urine Eosinophils is negative. Most likely has ATN causing DON. Has elevated Bilirubin. BP is stable, non oliguric. Follow the urine out put and BMP. Can be discharged from Nephrology, with follow up. Creatinine is stable, started eating better. Linette Guerra MD Jul 22, 2017 17:21
[2017-07-22] MEDS: ACETAMINOPHEN 325 MG TAB PO PRN (22:46)
[2017-07-23] VITALS (9 sets, daily range): BP systolic 107–129; BP diastolic 59–100; PULSE 63–73; RESP 16–20; TEMP 97.5–98.1; O2SAT 95–97
[2017-07-23] MEDS: ACETAMINOPHEN 325 MG TAB PO PRN ×2 (05:54→13:11)
[2017-07-23] MEDS: cloNIDine HCL 0.2 MG TAB PO SCH ×3 (05:54→22:05)
[2017-07-23] MEDS: BETHANECHOL CHL 25 MG TAB PO SCH ×3 (05:54→22:06)
[2017-07-23] MEDS: METOCLOPRAMIDE HCL 10 MG/2 ML VIAL IV PUSH SCH ×3 (06:00→22:06)
--- NOTE | 2017-07-23 07:38 | HHI.PR ---
Subjective Remarks pain all over still nad walked with PT yest he tells me Objective Vital Signs Date Time Temp Pulse Resp B/P (MAP) Pulse Ox O2 Delivery O2 Flow Rate FiO2 07/23/17 06:00 97.5 68 18 126/100 (109) 95 114/65 (81) 128/69 (88) 07/23/17 01:50 63 07/23/17 00:28 98.1 73 16 113/59 (77) 97 07/22/17 20:30 98.7 71 16 128/73 (91) 96 07/22/17 20:30 98.7 71 16 114/63 (80) 96 07/22/17 16:32 97.9 72 20 117/62 (80) 96 07/22/17 14:17 97.2 72 20 112/67 (82) 97 07/22/17 08:33 98.0 68 19 113/64 (80) 95 07/22/17 08:00 69 I/O 07/22/17 07/22/17 07/22/17 07/23/17 07/23/17 07/23/17 06:59 14:59 22:59 06:59 14:59 22:59 Intake Total 360 ml Output Total 250 ml Balance 360 ml -250 ml Intake Oral 360 ml Output Urine Total 250 ml # Voids 4 2 # Bowel Movements 1 1 3 Result Diagram: 07/21/1733 07/21/17532 Objective Remarks awake alert in bed Assessment and Plan Assessment and Plan imp i dw PT poor gait unclear why mri brain and cord neg check standing bp low keep monitoring none documented a little weak r ham pain i am not rec narcotics try neurontin says only got one yest crp rf neg oob to chair most of day plz dvt prophylaxis? defer to med team Bharath Lama MD Jul 23, 2017 07:38
[2017-07-23] MEDS: GABAPENTIN 300 MG CAP PO SCH ×3 (08:03→17:18)
[2017-07-23] MEDS: RIFAXIMIN 550 MG TAB PO SCH ×2 (08:04→22:05)
[2017-07-23] MEDS: THIAMINE HCL 100 MG TAB PO SCH (08:04)
[2017-07-23] MEDS: guaiFENesin E.R. 600 MG TAB PO SCH ×2 (08:04→22:05)
[2017-07-23] MEDS: DOCUSATE SODIUM 50 MG/SENNA 8.6 MG TAB PO SCH ×2 (08:04→22:05)
[2017-07-23] MEDS: MULTIVITAMIN TAB PO SCH (08:04)
[2017-07-23] MEDS: LACTULOSE SYRUP 20 GM/30 ML CUP PO SCH ×2 (08:05→22:05)
[2017-07-23] MEDS: PANTOPRAZOLE SODIUM 40 MG VIAL IV SCH ×2 (08:05→21:00)
[2017-07-23] MEDS: POLYETHYLENE GLYCOL 17 GM PKG PO SCH (08:07)
[2017-07-23] MEDS: PSYLLIUM FIBER SF/GF 6 GM POWD PKT PO SCH ×2 (08:07→22:06)
[2017-07-23] MEDS: SODIUM CHLORIDE 0.9% FLUSH 10 ML FLUSH IV FLUSH SCH ×2 (08:09→22:16)
[2017-07-23] MEDS: REMOVE OLD PATCH T-DERMAL SCH (08:10)
[2017-07-23] MEDS: NICOTINE 14 MG/24 HR PATCH T-DERMAL SCH (08:10)
[2017-07-23 08:55] LABS: HEMOGLOBIN 9.9 GM/DL (13.0-17.0); MEAN CELL VOLUME 102.4 FL (80.0-100.0); MEAN CORPUSCULAR HGB CONC 34.1 % (32.0-36.0); MEAN PLATELET VOLUME 8.6 FL (7.0-11.0); PLATELET COUNT 119 TH/MM3 (150-450); RED BLOOD COUNT 2.83 MIL/MM3 (4.50-5.90); RED CELL DISTRIBUTION WIDTH 15.9 % (11.6-17.2); WHITE BLOOD COUNT 4.3 TH/MM3 (4.0-11.0)
[2017-07-23 09:17] LABS: BICARBONATE 24.5 MEQ/L (21.0-32.0); CALCIUM 7.9 MG/DL (8.5-10.1); CREATININE 1.62 MG/DL (0.60-1.30)
--- NOTE | 2017-07-23 13:10 | HHI.PR ---
Subjective Remarks Patient seen while in wheelchair wheeling down the hong pos BM, pos flatus, good urine output offers no specific complaints at this time Objective Vitals Vital Signs Date Time Temp Pulse Resp B/P (MAP) Pulse Ox O2 Delivery O2 Flow Rate FiO2 07/23/17 12:00 97.6 70 20 129/67 (87) 96 126/70 (88) 07/23/17 08:04 67 07/23/17 08:00 97.7 69 20 107/62 (77) 97 112/63 (79) 07/23/17 06:00 97.5 68 18 126/100 (109) 95 114/65 (81) 128/69 (88) 07/23/17 01:50 63 07/23/17 00:28 98.1 73 16 113/59 (77) 97 07/22/17 20:30 98.7 71 16 128/73 (91) 96 07/22/17 20:30 98.7 71 16 114/63 (80) 96 07/22/17 16:32 97.9 72 20 117/62 (80) 96 07/22/17 14:17 97.2 72 20 112/67 (82) 97 I/O 07/22/17 07/22/17 07/22/17 07/23/17 07/23/17 07/23/17 07:00 15:00 23:00 07:00 15:00 23:00 Intake Total 360 ml Output Total 250 ml Balance 360 ml -250 ml Intake Oral 360 ml Output Urine Total 250 ml # Voids 4 2 # Bowel Movements 1 1 3 1 Result Diagram: 07/23/17 0604 07/23/17 0654 Other Results Laboratory Tests Test 07/21/17 05:33 07/22/17 08:45 07/23/17 06:04 07/23/17 06:54 White Blood Count 9.0 TH/MM3 4.3 TH/MM3 Red Blood Count 2.91 MIL/MM3 2.83 MIL/MM3 Hemoglobin 10.3 GM/DL 9.9 GM/DL Hematocrit 30.1 % 29.0 % Mean Corpuscular Volume 103.3 FL 102.4 FL Mean Corpuscular Hemoglobin 35.2 PG 35.0 PG Mean Corpuscular Hemoglobin Concent 34.1 % 34.1 % Red Cell Distribution Width 16.2 % 15.9 % Platelet Count 130 TH/MM3 119 TH/MM3 Mean Platelet Volume 9.2 FL 8.6 FL Blood Urea Nitrogen 14 MG/DL 13 MG/DL Creatinine 1.64 MG/DL 1.62 MG/DL Random Glucose 111 MG/DL 84 MG/DL Total Protein 6.9 GM/DL Albumin 2.3 GM/DL Calcium Level 8.1 MG/DL 7.9 MG/DL Alkaline Phosphatase 85 U/L Aspartate Amino Transf (AST/SGOT) 35 U/L Alanine Aminotransferase (ALT/SGPT) 8 U/L Total Bilirubin 1.7 MG/DL Sodium Level 139 MEQ/L 136 MEQ/L Potassium Level 4.1 MEQ/L 3.4 MEQ/L Chloride Level 105 MEQ/L 104 MEQ/L Carbon Dioxide Level 25.4 MEQ/L 24.5 MEQ/L Anion Gap 9 MEQ/L 8 MEQ/L Estimat Glomerular Filtration Rate 45 ML/MIN 45 ML/MIN Erythrocyte Sedimentation Rate 74 mm/hr C-Reactive Protein 1.10 MG/DL Rheumatoid Factor Screen NEGATIVE Rheumatoid Factor Titer IU/ML Imaging Last Impressions Thoracic Spine MRI 07/22/17704 Signed Impressions: Service Date/Time: Saturday, July 22, 2017 12:06 - CONCLUSION: 1. Small bilateral pleural effusions. 2. Patent central canal. Caesar Shafer Jr., MD Lumbar Spine MRI 07/22/17704 Signed Impressions: Service Date/Time: Saturday, July 22, 2017 12:06 - CONCLUSION: 1. Mild degenerative disc disease at L2-L3. No spinal canal stenosis or neural foraminal stenosis is present. 2. Left upper quadrant varices. These were documented on prior CT from 06/29/4017 and are likely related to chronic liver disease/cirrhosis. Nikko Cote MD Cervical Spine MRI 07/22/17704 Signed Impressions: Service Date/Time: Saturday, July 22, 2017 12:06 - CONCLUSION: Degenerative disc disease at C5-C6 and C6-C7. However, no spinal canal stenosis or neural foraminal narrowing is present. Spinal cord demonstrates no abnormality. Nikko Cote MD Brain MRI 07/22/17704 Signed Impressions: Service Date/Time: Saturday, July 22, 2017 12:06 - CONCLUSION: Negative MRI of the brain for acute process. I do not see evidence for an ischemic event. Colten Nelson MD FACR Lower Extremity Ultrasound 07/19/17 0000 Signed Impressions: Service Date/Time: Wednesday, July 19, 2017 15:46 - CONCLUSION: 1. No evidence of deep venous thrombosis. Bharath May MD Abdomen X-Ray 07/14/17 0600 Signed Impressions: Service Date/Time: Friday, July 14, 2017 07:47 - CONCLUSION: 1. Diffuse gaseous distention of the small and large bowel suggesting adynamic ileus. Franc Nelson MD Small Bowel X-Ray 07/10/17 0000 Signed Impressions: Service Date/Time: Monday, July 10, 2017 08:26 - CONCLUSION: 1. Diffuse small bowel dilatation and delayed small bowel transit time of approximately 5- 6 hours without focal transition point, intraluminal filling defect or gross mass. Findings are most consistent with moderate adynamic ileus. Bryson Downing MD Renal Ultrasound 07/10/17 0000 Signed Impressions: Service Date/Time: Monday, July 10, 2017 18:25 - CONCLUSION: 1. Unremarkable renal ultrasound. Mild ascites. Albert Walden MD Chest X-Ray 07/09/17 0600 Signed Impressions: Service Date/Time: July 06:10 - CONCLUSION: 1. Minimal basilar dependent density. Differential diagnosis includes atelectasis. Findings similar to prior exam. Albert Walden MD Chest CT 07/05/17 1635 Signed Impressions: Service Date/Time: Wednesday, July 05, 2017 18:11 - CONCLUSION: 1. Segmental consolidation with volume loss medial right lower lung. 2. Atelectasis or basilar consolidation left lower lung. 3. Mild amount of ascites. Caesar Ann MD Abdomen MRI 07/02/17 0000 Signed Impressions: Service Date/Time: June 16:34 - CONCLUSION: 1. Hepatomegaly and hepatic steatosis. No focal mass identified. 2. Moderate splenomegaly. 3. Small amount of ascites. 4. Small bilateral pleural effusions. Wilbert Howe MD Ankle X-Ray 07/01/17 0000 Signed Impressions: Service Date/Time: Saturday, July 01, 2017 10:22 - CONCLUSION: Soft tissue mass noted to be fluid filled on ultrasound 09/10/2012. Colten Nelson MD FACR Head CT 06/30/17 0000 Signed Impressions: Service Date/Time: Saturday, July 01, 2017 02:24 - CONCLUSION: 1. No acute intracranial abnormalities. Previous fixation left maxillary sinus. Albert Walden MD Cervical Spine CT 06/30/17 0000 Signed Impressions: Service Date/Time: Saturday, July 01, 2017 02:24 - CONCLUSION: Normal examination for a patient of this age. Albert Walden MD Abdomen/Pelvis CT 06/29/17 0000 Signed Impressions: Service Date/Time: Thursday, June 29, 2017 12:52 - CONCLUSION: 1. Hepatosplenomegaly and varices noted as above. 2. Atherosclerosis. 3. Abnormal diffuse heterogeneous appearance of the liver which may be related to either marked hepatic steatosis in an inhomogeneous fashion versus steatosis and underlying diffuse liver masses. An MRI of the abdomen with and without contrast may be helpful for further evaluation of this finding. Navjot Chirinos MD Objective Remarks GENERAL: NAD, A&Ox3 HEAD: Normocephalic. NECK: Supple, trachea midline. No lymphadenopathy. EYES: No scleral icterus. No injection or drainage. CARDIOVASCULAR: Regular rate and rhythm without murmurs, gallops, or rubs. RESPIRATORY: Breath sounds equal bilaterally. No accessory muscle use. GASTROINTESTINAL: Abdomen soft, non-tender, nondistended. MUSCULOSKELETAL: No cyanosis, or edema. Lower extremity weakness. SKIN: Warm and dry. NEURO: No focal neurological deficits. 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 Continue physical therapy. Continue to monitor for continued bowel movements and improvement in GI symptoms. Ileus Improved Follow for any recurrence ETOH Withdraw Resolved Continue folic acid Continue thiamine Continue multivitamin DON No significant change for better or worse Not yet to baseline Follow renal function Hepatic Encephalopathy Continue Xifaxan GI Bleed CBC shows no evidence of active bleed Etiology had been gastritis and duodenitis Continue Protonix Generalized Weakness continue PT Slow improvement No payor source for SNF Degree of weakness is greater than expected given patient's clinical presentation Neurologic findings were not suggestive of Guillain-Segovia syndrome, per neurology Neurology following DVT Prophylaxis SCDs (high bleed risk) Discharge Planning To much weakness for safe discharge SNF not yet an option due to lack of payor source Discussed with patient and Cris Henson Jul 23, 2017 13:10
--- NOTE | 2017-07-23 21:58 | HHI.NPPN ---
Subjective History of Present Illness 51-year-old male with a past medical history of cirrhosis of the liver, bronchial asthma, depression, hyperlipidemia, pancreatitis, Menendez's esophagus, chronic abdominal pain, possible history of gastric ulcer and varices, questionable esophageal cancer who was admitted with abdominal pain and distension. I was called to see the patient because of elevated BUN and creatinine. Additional Remarks Patient is alert, no abd. pain now, no SOB. Review of Systems General Constitutional: Fatigue Respiratory Lungs: Wheeze Cardiovascular Cardiac: CORTES Gastrointestinal Gastrointestinal: Abdominal Pain Objective Data Data 07/23/17 07/24/17 19:00 07:00 Intake Total 450 ml Output Total 400 ml Balance 50 ml Intake Oral 450 ml Output Urine Total 400 ml # Bowel Movements 2 Vital Signs Date Time Temp Pulse Resp B/P (MAP) Pulse Ox O2 Delivery O2 Flow Rate FiO2 07/23/17 20:41 97.7 65 18 115/62 (79) 97 07/23/17 16:55 112/64 (80) 120/68 (85) 07/23/17 16:16 97.7 65 20 108/62 (77) 97 111/67 (82) 07/23/17 12:00 97.6 70 20 129/67 (87) 96 126/70 (88) 07/23/17 08:04 67 07/23/17 08:00 97.7 69 20 107/62 (77) 97 112/63 (79) 07/23/17 06:00 97.5 68 18 126/100 (109) 95 114/65 (81) 128/69 (88) 07/23/17 01:50 63 07/23/17 00:28 98.1 73 16 113/59 (77) 97 -: 07/23/17 0604 07/23/17 0654 Physical Exam General Appearance: No Acute Distress, Anxious Throat Throat Exam: Oral Mucosa [place] & Moist Neck Neck Exam: Neck Supple Pulmonary Resp Exam: Breath Sounds Equal, Rhonchi, Decreased Bases Cardiology CV Exam: Regular, Normal Sinus Rhythm Gastrointestinal/Abdomen GI Exam: Soft, Bowel Sounds Present, Distended Extremeties Extremities Exam: Trace Edema Neurologic Neuro Exam: Alert, Awake, Oriented Assessment/Plan Assessment Summary: DON/Acute Renal Failure Problem List: (1) Acute kidney injury ICD Codes: N17.9 - Acute kidney failure, unspecified (2) Encephalopathy ICD Codes: G93.40 - Encephalopathy, unspecified (3) Anemia ICD Codes: D64.9 - Anemia, unspecified Status: Acute (4) Jaundice ICD Codes: R17 - Unspecified jaundice (5) Gastritis ICD Codes: K29.70 - Gastritis, unspecified, without bleeding Status: Acute (6) 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 Normal size kidneys and has Normal Na. in the urine. Urine Eosinophils is negative. Most likely has ATN causing DON. Has elevated Bilirubin. BP is stable, now eating well. Follow the urine out put and BMP. Can be discharged from Nephrology, with follow up. Creatinine is stable at 1.6. Linette Guerra MD Jul 23, 2017 21:58
[2017-07-24] VITALS (8 sets, daily range): BP systolic 95–134; BP diastolic 58–77; PULSE 66–80; RESP 16–20; TEMP 97.5–98.7; O2SAT 84–98
[2017-07-24] MEDS: BETHANECHOL CHL 25 MG TAB PO SCH ×2 (05:01→13:37)
[2017-07-24] MEDS: METOCLOPRAMIDE HCL 10 MG/2 ML VIAL IV PUSH SCH ×3 (05:01→20:52)
[2017-07-24] MEDS: cloNIDine HCL 0.2 MG TAB PO SCH ×3 (05:01→20:52)
[2017-07-24] MEDS: ACETAMINOPHEN 325 MG TAB PO PRN ×2 (05:06→17:53)
--- NOTE | 2017-07-24 07:56 | HHI.PR ---
Subjective Remarks pain in hels he states walked with PT yest i dw them he is walking farther every day Objective Vital Signs Date Time Temp Pulse Resp B/P (MAP) Pulse Ox O2 Delivery O2 Flow Rate FiO2 07/24/17 05:39 97.8 68 16 120/70 (87) 98 07/24/17 03:30 74 07/24/17 00:47 98.0 74 18 120/63 (82) 95 122/63 (82) 134/77 (96) 07/23/17 20:41 97.7 65 18 115/62 (79) 97 07/23/17 16:55 112/64 (80) 120/68 (85) 07/23/17 16:16 97.7 65 20 108/62 (77) 97 111/67 (82) 07/23/17 12:00 97.6 70 20 129/67 (87) 96 126/70 (88) 07/23/17 08:04 67 07/23/17 08:00 97.7 69 20 107/62 (77) 97 112/63 (79) I/O 07/23/17 07/23/17 07/23/17 07/24/17 07/24/17 07/24/17 07:00 15:00 23:00 07:00 15:00 23:00 Intake Total 450 ml Output Total 400 ml Balance 50 ml Intake Oral 450 ml Output Urine Total 400 ml # Voids 2 2 # Bowel Movements 3 2 2 Result Diagram: 07/23/17 0604 07/23/17 0654 Objective Remarks awake alert in bed moves ble well to stimulation not great effort Assessment and Plan Assessment and Plan imp i dw PT gait getting better mri brain and cord neg standing bp ok pain inc neurontin i would add mobic but creat up a little so defer to med team crp rf neg oob to chair most of day plz dvt prophylaxis? defer to med team Bharath Lama MD Jul 24, 2017 07:56
[2017-07-24] MEDS: LACTULOSE SYRUP 20 GM/30 ML CUP PO SCH ×2 (08:25→20:51)
[2017-07-24] MEDS: MULTIVITAMIN TAB PO SCH (08:25)
[2017-07-24] MEDS: GABAPENTIN 300 MG CAP PO SCH ×3 (08:26→17:53)
[2017-07-24] MEDS: DOCUSATE SODIUM 50 MG/SENNA 8.6 MG TAB PO SCH ×2 (08:26→20:57)
[2017-07-24] MEDS: guaiFENesin E.R. 600 MG TAB PO SCH ×2 (08:26→20:52)
[2017-07-24] MEDS: RIFAXIMIN 550 MG TAB PO SCH ×2 (08:27→20:52)
[2017-07-24] MEDS: SODIUM CHLORIDE 0.9% FLUSH 10 ML FLUSH IV FLUSH SCH ×2 (08:27→20:53)
[2017-07-24] MEDS: THIAMINE HCL 100 MG TAB PO SCH (08:27)
[2017-07-24] MEDS: PANTOPRAZOLE SODIUM 40 MG VIAL IV SCH ×2 (08:28→20:53)
[2017-07-24] MEDS: POLYETHYLENE GLYCOL 17 GM PKG PO SCH (08:28)
[2017-07-24] MEDS: PSYLLIUM FIBER SF/GF 6 GM POWD PKT PO SCH ×2 (08:28→20:53)
[2017-07-24] MEDS: NICOTINE 14 MG/24 HR PATCH T-DERMAL SCH (08:30)
[2017-07-24] MEDS: REMOVE OLD PATCH T-DERMAL SCH (08:30)
--- NOTE | 2017-07-24 10:01 | HHI.PR ---
Subjective Remarks did well with PT this am denies any ehadaches, or pain voiding po improving Objective Vitals Vital Signs Date Time Temp Pulse Resp B/P (MAP) Pulse Ox O2 Delivery O2 Flow Rate FiO2 07/24/17 08:46 97.5 66 16 108/62 (77) 96 95/58 (70) 07/24/17 08:02 66 07/24/17 05:39 97.8 68 16 120/70 (87) 98 07/24/17 03:30 74 07/24/17 00:47 98.0 74 18 120/63 (82) 95 122/63 (82) 134/77 (96) 07/23/17 20:41 97.7 65 18 115/62 (79) 97 07/23/17 16:55 112/64 (80) 120/68 (85) 07/23/17 16:16 97.7 65 20 108/62 (77) 97 111/67 (82) 07/23/17 12:00 97.6 70 20 129/67 (87) 96 126/70 (88) I/O 07/23/17 07/23/17 07/23/17 07/24/17 07/24/17 07/24/17 07:00 15:00 23:00 07:00 15:00 23:00 Intake Total 450 ml Output Total 400 ml 400 ml Balance 50 ml -400 ml Intake Oral 450 ml Output Urine Total 400 ml 400 ml # Voids 2 2 # Bowel Movements 3 2 2 Result Diagram: 07/23/1760307/23/17653 Imaging Last Impressions Thoracic Spine MRI 07/22/17704 Signed Impressions: Service Date/Time: Saturday, July 22, 2017 12:06 - CONCLUSION: 1. Small bilateral pleural effusions. 2. Patent central canal. Caesar Shafer Jr., MD Lumbar Spine MRI 07/22/17704 Signed Impressions: Service Date/Time: Saturday, July 22, 2017 12:06 - CONCLUSION: 1. Mild degenerative disc disease at L2-L3. No spinal canal stenosis or neural foraminal stenosis is present. 2. Left upper quadrant varices. These were documented on prior CT from 06/29/4017 and are likely related to chronic liver disease/cirrhosis. Nikko Cote MD Cervical Spine MRI 07/22/17704 Signed Impressions: Service Date/Time: Saturday, July 22, 2017 12:06 - CONCLUSION: Degenerative disc disease at C5-C6 and C6-C7. However, no spinal canal stenosis or neural foraminal narrowing is present. Spinal cord demonstrates no abnormality. Nikko Cote MD Brain MRI 07/22/17 0705 Signed Impressions: Service Date/Time: Saturday, July 22, 2017 12:06 - CONCLUSION: Negative MRI of the brain for acute process. I do not see evidence for an ischemic event. Colten Nelson MD FACR Lower Extremity Ultrasound 07/19/17 0000 Signed Impressions: Service Date/Time: Wednesday, July 19, 2017 15:46 - CONCLUSION: 1. No evidence of deep venous thrombosis. Bharath May MD Abdomen X-Ray 07/14/17 0600 Signed Impressions: Service Date/Time: Friday, July 14, 2017 07:47 - CONCLUSION: 1. Diffuse gaseous distention of the small and large bowel suggesting adynamic ileus. Franc Nelson MD Small Bowel X-Ray 07/10/17 0000 Signed Impressions: Service Date/Time: Monday, July 10, 2017 08:26 - CONCLUSION: 1. Diffuse small bowel dilatation and delayed small bowel transit time of approximately 5- 6 hours without focal transition point, intraluminal filling defect or gross mass. Findings are most consistent with moderate adynamic ileus. Bryson Downing MD Renal Ultrasound 07/10/17 0000 Signed Impressions: Service Date/Time: Monday, July 10, 2017 18:25 - CONCLUSION: 1. Unremarkable renal ultrasound. Mild ascites. Albert Walden MD Chest X-Ray 07/09/17 0600 Signed Impressions: Service Date/Time: July 06:10 - CONCLUSION: 1. Minimal basilar dependent density. Differential diagnosis includes atelectasis. Findings similar to prior exam. Albert Walden MD Chest CT 07/05/17 1635 Signed Impressions: Service Date/Time: Wednesday, July 05, 2017 18:11 - CONCLUSION: 1. Segmental consolidation with volume loss medial right lower lung. 2. Atelectasis or basilar consolidation left lower lung. 3. Mild amount of ascites. Caesar Ann MD Abdomen MRI 07/02/17 0000 Signed Impressions: Service Date/Time: June 16:34 - CONCLUSION: 1. Hepatomegaly and hepatic steatosis. No focal mass identified. 2. Moderate splenomegaly. 3. Small amount of ascites. 4. Small bilateral pleural effusions. Wilbert Howe MD Ankle X-Ray 07/01/17 0000 Signed Impressions: Service Date/Time: Saturday, July 01, 2017 10:22 - CONCLUSION: Soft tissue mass noted to be fluid filled on ultrasound 09/10/2012. Colten Nelson MD FACR Head CT 06/30/17 0000 Signed Impressions: Service Date/Time: Saturday, July 01, 2017 02:24 - CONCLUSION: 1. No acute intracranial abnormalities. Previous fixation left maxillary sinus. Albert Walden MD Cervical Spine CT 06/30/17 0000 Signed Impressions: Service Date/Time: Saturday, July 01, 2017 02:24 - CONCLUSION: Normal examination for a patient of this age. Albert Walden MD Abdomen/Pelvis CT 06/29/17 0000 Signed Impressions: Service Date/Time: Thursday, June 29, 2017 12:52 - CONCLUSION: 1. Hepatosplenomegaly and varices noted as above. 2. Atherosclerosis. 3. Abnormal diffuse heterogeneous appearance of the liver which may be related to either marked hepatic steatosis in an inhomogeneous fashion versus steatosis and underlying diffuse liver masses. An MRI of the abdomen with and without contrast may be helpful for further evaluation of this finding. Navjot Chirinos MD Objective Remarks awake and alert anicteric lungs- no rales, no wheezes regular rhythm abdomen- slightly distended but soft, good bowel sounds extremities trace edema moves all extremities spontaneously Procedures 06/30/17 EGD A/P Problem List: (1) Esophageal varices ICD Code: I85.00 - Esophageal varices without bleeding (2) Gastrointestinal bleed ICD Code: K92.2 - Gastrointestinal hemorrhage, unspecified (3) GERD Status: Chronic (4) Alcohol use ICD Code: Z78.9 - Other specified health status Status: Acute (5) Tobacco abuse ICD Code: Z72.0 - Tobacco use Status: Chronic (6) Jaundice ICD Code: R17 - Unspecified jaundice (7) Gastritis ICD Code: K29.70 - Gastritis, unspecified, without bleeding Status: Acute (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 Continue physical therapy. Continue to monitor for continued bowel movements and improvement in GI symptoms. Ileus Improved- po intake improving Follow for any recurrence ETOH Withdraw Resolved Continue folic acid Continue thiamine Continue multivitamin DON creatinine stabilizing Follow renal function will not start NSAIDs Hepatic Encephalopathy Continue Xifaxan GI Bleed CBC shows no evidence of active bleed Etiology had been gastritis and duodenitis Continue Protonix Generalized Weakness/Deconditioning continue PT Slow improvement No payor source for SNF Degree of weakness is greater than expected given patient's clinical presentation Neurologic findings were not suggestive of Guillain-Segovia syndrome, per neurology will not start NSAIds with DON Neurontin added to regimen 07/24 DVT Prophylaxis SCDs (high bleed risk)- GIB-on presentation Discharge Planning To much weakness for safe discharge SNF not yet an option due to lack of payor source Kera Christensen MD Jul 24, 2017 10:01
--- NOTE | 2017-07-24 11:04 | HHI.NPPN ---
Subjective History of Present Illness 51-year-old male with a past medical history of cirrhosis of the liver, bronchial asthma, depression, hyperlipidemia, pancreatitis, Menendez's esophagus, chronic abdominal pain, possible history of gastric ulcer and varices, questionable esophageal cancer who was admitted with abdominal pain and distension. I was called to see the patient because of elevated BUN and creatinine. Additional Remarks Patient is alert, no SOB, now in the wheelchair, started eating better. Review of Systems General Constitutional: Fatigue Respiratory Lungs: Wheeze Cardiovascular Cardiac: CORTES Gastrointestinal Gastrointestinal: Abdominal Pain Objective Data Data 07/24/17 07/25/17 19:00 07:00 Output Total 400 ml Balance -400 ml Output Urine Total 400 ml Vital Signs Date Time Temp Pulse Resp B/P (MAP) Pulse Ox O2 Delivery O2 Flow Rate FiO2 07/24/17 08:46 97.5 66 16 108/62 (77) 96 95/58 (70) 07/24/17 08:02 66 07/24/17 05:39 97.8 68 16 120/70 (87) 98 07/24/17 03:30 74 07/24/17 00:47 98.0 74 18 120/63 (82) 95 122/63 (82) 134/77 (96) 07/23/17 20:41 97.7 65 18 115/62 (79) 97 07/23/17 16:55 112/64 (80) 120/68 (85) 07/23/17 16:16 97.7 65 20 108/62 (77) 97 111/67 (82) 07/23/17 12:00 97.6 70 20 129/67 (87) 96 126/70 (88) -: 07/23/17 0604 07/23/17 0654 Physical Exam General Appearance: No Acute Distress, Anxious Throat Throat Exam: Oral Mucosa [place] & Moist Neck Neck Exam: Neck Supple Pulmonary Resp Exam: Breath Sounds Equal, Rhonchi, Decreased Bases Cardiology CV Exam: Regular, Normal Sinus Rhythm Gastrointestinal/Abdomen GI Exam: Soft, Bowel Sounds Present, Distended Extremeties Extremities Exam: Trace Edema Neurologic Neuro Exam: Alert, Awake, Oriented Assessment/Plan Assessment Summary: DON/Acute Renal Failure Problem List: (1) Acute kidney injury ICD Codes: N17.9 - Acute kidney failure, unspecified (2) Encephalopathy ICD Codes: G93.40 - Encephalopathy, unspecified (3) Anemia ICD Codes: D64.9 - Anemia, unspecified Status: Acute (4) Jaundice ICD Codes: R17 - Unspecified jaundice (5) Gastritis ICD Codes: K29.70 - Gastritis, unspecified, without bleeding Status: Acute (6) 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 Normal size kidneys and has Normal Na. in the urine. Urine Eosinophils is negative. Most likely has ATN causing DON. Has elevated Bilirubin. BP is stable, Creatinine is improving,now 1.6, his baseline is normal. Follow the urine out put and BMP. Avoid Nephrotoxins. Encourage oral intake. Can be discharged from Nephrology, with out patient follow up. Linette Guerra MD Jul 24, 2017 11:04
[2017-07-24] MEDS ORDERED: POTASSIUM CHLORIDE 10 MEQ CONTROLLED RELEASE TAB PO ONE ×2 (17:00→17:45)
[2017-07-25] VITALS (8 sets, daily range): BP systolic 111–170; BP diastolic 57–76; PULSE 67–91; RESP 18–22; TEMP 97–98.1; O2SAT 95–99
[2017-07-25] MEDS: BETHANECHOL CHL 25 MG TAB PO SCH ×4 (00:53→21:24)
[2017-07-25] MEDS: METOCLOPRAMIDE HCL 10 MG/2 ML VIAL IV PUSH SCH ×3 (06:34→21:23)
[2017-07-25] MEDS: cloNIDine HCL 0.2 MG TAB PO SCH ×3 (06:35→21:23)
[2017-07-25 07:38] LABS: BICARBONATE 26.5 MEQ/L (21.0-32.0); CALCIUM 8.3 MG/DL (8.5-10.1); CREATININE 1.53 MG/DL (0.60-1.30)
--- NOTE | 2017-07-25 08:33 | HHI.PR ---
Subjective Remarks awake and alert very motivated to do more physical therapy - "you bet" denies any nausea or vomiting Objective Vitals Vital Signs Date Time Temp Pulse Resp B/P (MAP) Pulse Ox O2 Delivery O2 Flow Rate FiO2 07/25/17 08:00 97.0 67 18 111/62 (78) 96 07/25/17 04:40 97.7 70 20 132/66 (88) 99 07/25/17 00:00 97.6 91 22 130/68 (88) 96 07/24/17 20:00 80 07/24/17 20:00 97.7 74 20 115/59 (77) 95 07/24/17 20:00 117/59 (78) 84 07/24/17 16:57 98.7 72 18 119/60 (79) 95 07/24/17 12:42 98.0 75 18 113/65 (81) 96 118/70 (86) 07/24/17 08:46 97.5 66 16 108/62 (77) 96 95/58 (70) I/O 07/24/17 07/24/17 07/24/17 07/25/17 07/25/17 07/25/17 07:00 15:00 23:00 07:00 15:00 23:00 Intake Total 480 ml 240 ml Output Total 600 ml 600 ml 0 ml Balance -120 ml -360 ml 0 ml Intake Oral 480 ml 240 ml Output Urine Total 600 ml 600 ml 0 ml # Voids 2 # Bowel Movements 2 0 0 Result Diagram: 07/23/17 0604 07/25/17608 Imaging Last Impressions Thoracic Spine MRI 07/22/17704 Signed Impressions: Service Date/Time: Saturday, July 22, 2017 12:06 - CONCLUSION: 1. Small bilateral pleural effusions. 2. Patent central canal. Caesar Shafer Jr., MD Lumbar Spine MRI 07/22/17704 Signed Impressions: Service Date/Time: Saturday, July 22, 2017 12:06 - CONCLUSION: 1. Mild degenerative disc disease at L2-L3. No spinal canal stenosis or neural foraminal stenosis is present. 2. Left upper quadrant varices. These were documented on prior CT from 06/29/4017 and are likely related to chronic liver disease/cirrhosis. Nikko Cote MD Cervical Spine MRI 07/22/17704 Signed Impressions: Service Date/Time: Saturday, July 22, 2017 12:06 - CONCLUSION: Degenerative disc disease at C5-C6 and C6-C7. However, no spinal canal stenosis or neural foraminal narrowing is present. Spinal cord demonstrates no abnormality. Nikko Cote MD Brain MRI 07/22/17 0705 Signed Impressions: Service Date/Time: Saturday, July 22, 2017 12:06 - CONCLUSION: Negative MRI of the brain for acute process. I do not see evidence for an ischemic event. Colten Nelson MD FACR Lower Extremity Ultrasound 07/19/17 0000 Signed Impressions: Service Date/Time: Wednesday, July 19, 2017 15:46 - CONCLUSION: 1. No evidence of deep venous thrombosis. Bharath May MD Abdomen X-Ray 07/14/17 0600 Signed Impressions: Service Date/Time: Friday, July 14, 2017 07:47 - CONCLUSION: 1. Diffuse gaseous distention of the small and large bowel suggesting adynamic ileus. Franc Nelson MD Small Bowel X-Ray 07/10/17 0000 Signed Impressions: Service Date/Time: Monday, July 10, 2017 08:26 - CONCLUSION: 1. Diffuse small bowel dilatation and delayed small bowel transit time of approximately 5- 6 hours without focal transition point, intraluminal filling defect or gross mass. Findings are most consistent with moderate adynamic ileus. Bryson Downing MD Renal Ultrasound 07/10/17 0000 Signed Impressions: Service Date/Time: Monday, July 10, 2017 18:25 - CONCLUSION: 1. Unremarkable renal ultrasound. Mild ascites. Albert Walden MD Chest X-Ray 07/09/17 0600 Signed Impressions: Service Date/Time: July 06:10 - CONCLUSION: 1. Minimal basilar dependent density. Differential diagnosis includes atelectasis. Findings similar to prior exam. Albert Walden MD Chest CT 07/05/17 1635 Signed Impressions: Service Date/Time: Wednesday, July 05, 2017 18:11 - CONCLUSION: 1. Segmental consolidation with volume loss medial right lower lung. 2. Atelectasis or basilar consolidation left lower lung. 3. Mild amount of ascites. Caesar Ann MD Abdomen MRI 07/02/17 0000 Signed Impressions: Service Date/Time: June 16:34 - CONCLUSION: 1. Hepatomegaly and hepatic steatosis. No focal mass identified. 2. Moderate splenomegaly. 3. Small amount of ascites. 4. Small bilateral pleural effusions. Wilbert Howe MD Ankle X-Ray 07/01/17 0000 Signed Impressions: Service Date/Time: Saturday, July 01, 2017 10:22 - CONCLUSION: Soft tissue mass noted to be fluid filled on ultrasound 09/10/2012. Colten Nelson MD FACR Head CT 06/30/17 0000 Signed Impressions: Service Date/Time: Saturday, July 01, 2017 02:24 - CONCLUSION: 1. No acute intracranial abnormalities. Previous fixation left maxillary sinus. Albert Walden MD Cervical Spine CT 06/30/17 0000 Signed Impressions: Service Date/Time: Saturday, July 01, 2017 02:24 - CONCLUSION: Normal examination for a patient of this age. Albert Walden MD Abdomen/Pelvis CT 06/29/17 0000 Signed Impressions: Service Date/Time: Thursday, June 29, 2017 12:52 - CONCLUSION: 1. Hepatosplenomegaly and varices noted as above. 2. Atherosclerosis. 3. Abnormal diffuse heterogeneous appearance of the liver which may be related to either marked hepatic steatosis in an inhomogeneous fashion versus steatosis and underlying diffuse liver masses. An MRI of the abdomen with and without contrast may be helpful for further evaluation of this finding. Navjot Chirinos MD Objective Remarks awake and alert anicteric lungs- no rales, no wheezes regular rhythm abdomen- more distended but soft, good bowel sounds extremities + edema, mild calf tenderness moves all extremities spontaneously Procedures 06/30/17 EGD A/P Problem List: (1) Esophageal varices ICD Code: I85.00 - Esophageal varices without bleeding (2) Gastrointestinal bleed ICD Code: K92.2 - Gastrointestinal hemorrhage, unspecified (3) GERD Status: Chronic (4) Alcohol use ICD Code: Z78.9 - Other specified health status Status: Acute (5) Tobacco abuse ICD Code: Z72.0 - Tobacco use Status: Chronic (6) Jaundice ICD Code: R17 - Unspecified jaundice (7) Gastritis ICD Code: K29.70 - Gastritis, unspecified, without bleeding Status: Acute (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 Continue physical therapy. Continue to monitor for continued bowel movements and improvement in GI symptoms. Ileus Improved- po intake improving Follow for any recurrence ETOH Withdrawal -Resolved Continue folic acid Continue thiamine Continue multivitamin DON creatinine stabilizing Follow renal function will not start NSAIDs Hepatic Encephalopathy Liver cirrhosis bilateral LE edema Continue Xifaxan more LE edema on exam today- c/o pain- check doppler r/o DVT consider diuretics with monitoring of renal functions GI Bleed Ileus- more distention on exam CBC shows no evidence of active bleed Etiology had been gastritis and duodenitis Continue Protonix bid recheck KUB. check US for ascites Generalized Weakness/Deconditioning continue PT Slow improvement No payor source for SNF Degree of weakness is greater than expected given patient's clinical presentation Neurologic findings were not suggestive of Guillain-Segovia syndrome, per neurology will not start NSAIds with DON Neurontin added to regimen 07/24 DVT Prophylaxis SCDs (high bleed risk)- GIB-on presentation Discharge Planning To much weakness for safe discharge SNF not yet an option due to lack of payor source Kera Christensen MD Jul 25, 2017 08:33
[2017-07-25] MEDS: NICOTINE 14 MG/24 HR PATCH T-DERMAL SCH (09:24)
[2017-07-25] MEDS: GABAPENTIN 300 MG CAP PO SCH ×3 (09:24→17:06)
--- NOTE | 2017-07-25 09:24 | RADRPT ---
EXAM DATE/TIME: 07/25/2017 09:35 [facility] COMPARISON: ABDOMEN KUB ONLY, July 14, 2017, 7:47. INDICATIONS : Distention. MEDICAL HISTORY : None. SURGICAL HISTORY : None. ENCOUNTER: Subsequent ACUITY: 3 weeks PAIN SCORE: 3/10 LOCATION: across abdomen FINDINGS: Supine view of the abdomen was performed. Air seen within mildly distended small bowel in the midabd omen. Free air is not seen. No abnormal masses, calcifications, or organomegaly is seen. The osseous structures are unremarkable. CONCLUSION: Nonspecific mildly distended small bowel. Some degree of ileus or obstruction can be considered. Nikko Mason MD on July 25, 2017 at 9:21 Board Certified Radiologist. This report was verified electronically.
[2017-07-25] MEDS: MULTIVITAMIN TAB PO SCH (09:25)
[2017-07-25] MEDS: LACTULOSE SYRUP 20 GM/30 ML CUP PO SCH ×2 (09:25→21:21)
[2017-07-25] MEDS: REMOVE OLD PATCH T-DERMAL SCH (09:26)
[2017-07-25] MEDS: POLYETHYLENE GLYCOL 17 GM PKG PO SCH (09:26)
[2017-07-25] MEDS: SODIUM CHLORIDE 0.9% FLUSH 10 ML FLUSH IV FLUSH SCH ×2 (09:26→21:20)
[2017-07-25] MEDS: DOCUSATE SODIUM 50 MG/SENNA 8.6 MG TAB PO SCH ×2 (09:26→21:21)
[2017-07-25] MEDS: PSYLLIUM FIBER SF/GF 6 GM POWD PKT PO SCH ×2 (09:26→21:00)
[2017-07-25] MEDS: guaiFENesin E.R. 600 MG TAB PO SCH ×2 (09:26→21:21)
[2017-07-25] MEDS: RIFAXIMIN 550 MG TAB PO SCH ×2 (09:26→21:23)
[2017-07-25] MEDS: PANTOPRAZOLE SOD 40 MG DELAYED RELEASE TAB PO SCH ×2 (09:26→21:22)
[2017-07-25] MEDS: THIAMINE HCL 100 MG TAB PO SCH (09:26)
[2017-07-25 09:48] LABS: HEMATOCRIT 32.6 % (39.0-51.0); HEMOGLOBIN 11.3 GM/DL (13.0-17.0); MEAN CORPUSCULAR HEMOGLOBIN 35.8 PG (27.0-34.0); MEAN CORPUSCULAR HGB CONC 34.8 % (32.0-36.0); MEAN PLATELET VOLUME 8.3 FL (7.0-11.0); PLATELET COUNT 128 TH/MM3 (150-450); RED BLOOD COUNT 3.17 MIL/MM3 (4.50-5.90); RED CELL DISTRIBUTION WIDTH 16.2 % (11.6-17.2); WHITE BLOOD COUNT 4.1 TH/MM3 (4.0-11.0)
[2017-07-25 10:07] LABS: ALBUMIN 2.9 GM/DL (3.4-5.0); ALT (GPT) 13 U/L (12-78); AST (GOT) 43 U/L (15-37); BICARBONATE 28.2 MEQ/L (21.0-32.0); BLOOD UREA NITROGEN 11 MG/DL (7-18); CALCIUM 8.6 MG/DL (8.5-10.1); CHLORIDE 108 MEQ/L (98-107); CREATININE 1.47 MG/DL (0.60-1.30); GLOMERULAR FILTRATION RATE 51 ML/MIN (>89); GLUCOSE,RANDOM 90 MG/DL (74-106); SODIUM (NA) 140 MEQ/L (136-145)
[2017-07-25 10:10] LABS: ALKALINE PHOSPHATASE 83 U/L (45-117); TOTAL BILIRUBIN ADULT 1.4 MG/DL (0.2-1.0); TOTAL PROTEIN 7.5 GM/DL (6.4-8.2)
--- NOTE | 2017-07-25 10:45 | RADRPT ---
EXAM DATE/TIME: 07/25/2017 10:27 [facility] COMPARISON: No previous studies available for comparison. INDICATIONS : Ascites. MEDICAL HISTORY : Asthma. Carcinoma, esophageal. Ulcers. Menendez's disorder. SURGICAL HISTORY : Explatory laproscopy. ENCOUNTER: Initial ACUITY: 2 days PAIN SCORE: 8/10 LOCATION: Abdomen. AREA EVALUATED: Abdomen. FINDINGS: Imaging of the abdomen and pelvis was performed to evaluate for ascites for possible paracentesis. Th ere is a mild amount of ascites seen in the right upper quadrant and in the pelvis. CONCLUSION: Mild ascites. Nikko Mason MD on July 25, 2017 at 10:40 Board Certified Radiologist. This report was verified electronically.
--- NOTE | 2017-07-25 10:49 | HHI.NPPN ---
Subjective History of Present Illness 51-year-old male with a past medical history of cirrhosis of the liver, bronchial asthma, depression, hyperlipidemia, pancreatitis, Menednez's esophagus, chronic abdominal pain, possible history of gastric ulcer and varices, questionable esophageal cancer who was admitted with abdominal pain and distension. I was called to see the patient because of elevated BUN and creatinine. Additional Remarks Patient is alert, no SOB, now in the wheelchair, complain of increase leg swelling. Review of Systems General Constitutional: Fatigue Respiratory Lungs: Wheeze Cardiovascular Cardiac: CORTES Gastrointestinal Gastrointestinal: Abdominal Pain Objective Data Data Vital Signs Date Time Temp Pulse Resp B/P (MAP) Pulse Ox O2 Delivery O2 Flow Rate FiO2 07/25/17 08:00 97.0 67 18 111/62 (78) 96 07/25/17 04:40 97.7 70 20 132/66 (88) 99 07/25/17 00:00 97.6 91 22 130/68 (88) 96 07/24/17 20:00 80 07/24/17 20:00 97.7 74 20 115/59 (77) 95 07/24/17 20:00 117/59 (78) 84 07/24/17 16:57 98.7 72 18 119/60 (79) 95 07/24/17 12:42 98.0 75 18 113/65 (81) 96 118/70 (86) -: 07/25/17 0930 07/25/17 0930 Physical Exam General Appearance: No Acute Distress, Anxious Throat Throat Exam: Oral Mucosa [place] & Moist Neck Neck Exam: Neck Supple Pulmonary Resp Exam: Breath Sounds Equal, Rhonchi, Decreased Bases Cardiology CV Exam: Regular, Normal Sinus Rhythm Gastrointestinal/Abdomen GI Exam: Soft, Bowel Sounds Present, Distended Extremeties Extremities Exam: Moderate Edema, Pitting Edema Neurologic Neuro Exam: Alert, Awake, Oriented Assessment/Plan Assessment Summary: DON/Acute Renal Failure Problem List: (1) Acute kidney injury ICD Codes: N17.9 - Acute kidney failure, unspecified (2) Encephalopathy ICD Codes: G93.40 - Encephalopathy, unspecified (3) Anemia ICD Codes: D64.9 - Anemia, unspecified Status: Acute (4) Jaundice ICD Codes: R17 - Unspecified jaundice (5) Gastritis ICD Codes: K29.70 - Gastritis, unspecified, without bleeding Status: Acute (6) 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 Normal size kidneys and has Normal Na. in the urine. Urine Eosinophils is negative. Most likely has ATN causing DON. Has elevated Bilirubin. BP is stable, Last Creatinine was 1.4. Follow the urine out put and BMP. Avoid Nephrotoxins. Encourage oral intake. Start Bumex for increasing leg edema. Linette Guerra MD Jul 25, 2017 10:49
[2017-07-25] MEDS: BUMETANIDE 1 MG TAB PO SCH (12:13)
--- NOTE | 2017-07-25 18:27 | RADRPT ---
EXAM DATE/TIME: 07/25/2017 17:47 [facility] COMPARISON: No previous studies available for comparison. INDICATIONS : Bilateral leg swelling. MEDICAL HISTORY : Asthma. Ulcer. Menendez's disorder. carcinoma, espohageal. SURGICAL HISTORY : Left eye surgery. Sinus surgery. ENCOUNTER: Subsequent ACUITY: 1 day PAIN SCORE: 4/10 LOCATION: Bilateral legs. TECHNIQUE: Venous ultrasound of the left and right leg was performed from the inguinal ligament to the proximal calf. Real-time, color Doppler and spectral tracing, compression and augmentation techniques were us ed. FINDINGS: RIGHT LEG: There is normal compressibility of the deep venous system from the inguinal region to the proximal ca lf. No echogenic clot is seen in the lumen of the common femoral, femoral, popliteal, and posterior tibial veins. There is a normal response of the venous system to proximal and distal augmentation an d respiration. LEFT LEG: There is normal compressibility of the deep venous system from the inguinal region to the proximal ca lf. No echogenic clot is seen in the lumen of the common femoral, femoral, popliteal, and posterior tibial veins. There is a normal response of the venous system to proximal and distal augmentation an d respiration. CONCLUSION: Normal examination. Albert Walden MD on July 25, 2017 at 18:25 Board Certified Radiologist. This report was verified electronically.
[2017-07-25] MEDS: ACETAMINOPHEN 325 MG TAB PO PRN (18:42)
[2017-07-26] VITALS (7 sets, daily range): BP systolic 108–180; BP diastolic 57–82; PULSE 72–98; RESP 18–20; TEMP 97.4–98.7; O2SAT 95
[2017-07-26] MEDS: cloNIDine HCL 0.2 MG TAB PO SCH ×3 (05:57→22:03)
[2017-07-26] MEDS: BETHANECHOL CHL 25 MG TAB PO SCH ×3 (05:57→22:03)
[2017-07-26] MEDS: METOCLOPRAMIDE HCL 10 MG/2 ML VIAL IV PUSH SCH ×3 (05:57→22:03)
[2017-07-26] MEDS: ACETAMINOPHEN 325 MG TAB PO PRN (06:08)
[2017-07-26] MEDS: THIAMINE HCL 100 MG TAB PO SCH (08:12)
[2017-07-26] MEDS: POLYETHYLENE GLYCOL 17 GM PKG PO SCH (08:12)
[2017-07-26] MEDS: MULTIVITAMIN TAB PO SCH (08:12)
[2017-07-26] MEDS: LACTULOSE SYRUP 20 GM/30 ML CUP PO SCH ×2 (08:12→22:01)
[2017-07-26] MEDS: guaiFENesin E.R. 600 MG TAB PO SCH ×2 (08:12→22:01)
[2017-07-26] MEDS: DOCUSATE SODIUM 50 MG/SENNA 8.6 MG TAB PO SCH ×2 (08:13→22:02)
[2017-07-26] MEDS: BUMETANIDE 1 MG TAB PO SCH (08:13)
[2017-07-26] MEDS: PANTOPRAZOLE SOD 40 MG DELAYED RELEASE TAB PO SCH ×2 (08:13→22:02)
[2017-07-26] MEDS: GABAPENTIN 300 MG CAP PO SCH ×3 (08:13→22:01)
[2017-07-26] MEDS: RIFAXIMIN 550 MG TAB PO SCH ×2 (08:13→22:02)
[2017-07-26] MEDS: REMOVE OLD PATCH T-DERMAL SCH (08:14)
[2017-07-26] MEDS: NICOTINE 14 MG/24 HR PATCH T-DERMAL SCH (08:14)
[2017-07-26] MEDS: SODIUM CHLORIDE 0.9% FLUSH 10 ML FLUSH IV FLUSH SCH ×2 (08:15→22:00)
[2017-07-26] MEDS: PSYLLIUM FIBER SF/GF 6 GM POWD PKT PO SCH ×2 (08:15→21:00)
--- NOTE | 2017-07-26 15:53 | HHI.PR ---
Subjective Remarks awake and alert, voiding well complains of burning pain legs specially at night- not sleeping good no abdominal pain, nausea or vomiting Objective Vitals Vital Signs Date Time Temp Pulse Resp B/P (MAP) Pulse Ox O2 Delivery O2 Flow Rate FiO2 07/26/17 12:00 97.4 94 18 180/76 (110) 95 157/71 (99) 07/26/17 11:15 81 07/26/17 08:00 98.3 78 18 133/65 (87) 95 133/67 (89) 07/26/17 00:00 97.9 72 20 108/57 (74) 95 07/25/17 21:00 72 07/25/17 20:00 97.3 78 20 129/61 (83) 95 133/89 (104) 119/57 (77) 07/25/17 16:00 98.1 85 18 170/76 (107) 97 I/O 07/25/17 07/25/17 07/25/17 07/26/17 07/26/17 07/26/17 07:00 15:00 23:00 07:00 15:00 23:00 Output Total 0 ml 400 ml Balance 0 ml -400 ml Output Urine Total 0 ml 400 ml # Voids 1 1 # Bowel Movements 0 1 1 1 Result Diagram: 07/25/1792907/25/17929 Objective Remarks awake and alert anicteric lungs- no rales, no wheezes regular rhythm abdomen- more distended but soft, good bowel sounds extremities + edema, mild calf tenderness moves all extremities spontaneously Procedures 06/30/17 EGD A/P Problem List: (1) Esophageal varices ICD Code: I85.00 - Esophageal varices without bleeding (2) Gastrointestinal bleed ICD Code: K92.2 - Gastrointestinal hemorrhage, unspecified (3) GERD Status: Chronic (4) Alcohol use ICD Code: Z78.9 - Other specified health status Status: Acute (5) Tobacco abuse ICD Code: Z72.0 - Tobacco use Status: Chronic (6) Jaundice ICD Code: R17 - Unspecified jaundice (7) Gastritis ICD Code: K29.70 - Gastritis, unspecified, without bleeding Status: Acute (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 Continue physical therapy. Continue to monitor for continued bowel movements and improvement in GI symptoms. Ileus Improved- po intake improving Follow for any recurrence ETOH Withdrawal -Resolved Continue folic acid Continue thiamine Continue multivitamin DON creatinine stabilizing Follow renal function will not start NSAIDs Hepatic Encephalopathy Liver cirrhosis bilateral LE edema Continue Xifaxan more LE edema on exam today- c/o pain- check doppler r/o DVT consider diuretics with monitoring of renal functions GI Bleed Ileus- CBC shows no evidence of active bleed Etiology had been gastritis and duodenitis Continue Protonix bid minimal ascites on US 07/25 Generalized Weakness/Deconditioning continue PT Slow improvement No payor source for SNF Degree of weakness is greater than expected given patient's clinical presentation Neurologic findings were not suggestive of Guillain-Segovia syndrome, per neurology will not start NSAIds with DON Neurontin added to regimen 07/24 DVT Prophylaxis SCDs (high bleed risk)- GIB-on presentation, high risk of bleeding, varices, thrombocytopenia from cirrhosis Discharge Planning To much weakness for safe discharge SNF not yet an option due to lack of payor source Kera Christensen MD Jul 26, 2017 15:53
[2017-07-27] VITALS (8 sets, daily range): BP systolic 95–142; BP diastolic 48–72; PULSE 78–88; RESP 18–20; TEMP 97.8–99.5; O2SAT 93–96
[2017-07-27] MEDS: cloNIDine HCL 0.2 MG TAB PO SCH ×3 (06:12→21:56)
[2017-07-27] MEDS: BETHANECHOL CHL 25 MG TAB PO SCH ×3 (06:12→21:55)
[2017-07-27] MEDS: METOCLOPRAMIDE HCL 10 MG/2 ML VIAL IV PUSH SCH (06:13)
[2017-07-27] MEDS: REMOVE OLD PATCH T-DERMAL SCH (09:00)
[2017-07-27] MEDS: SODIUM CHLORIDE 0.9% FLUSH 10 ML FLUSH IV FLUSH SCH ×2 (09:00→21:56)
[2017-07-27] MEDS: BUMETANIDE 1 MG TAB PO SCH ×2 (09:00→21:55)
[2017-07-27] MEDS: RIFAXIMIN 550 MG TAB PO SCH ×2 (09:09→21:55)
[2017-07-27] MEDS: GABAPENTIN 300 MG CAP PO SCH ×3 (09:11→21:54)
[2017-07-27] MEDS: guaiFENesin E.R. 600 MG TAB PO SCH ×2 (09:11→21:55)
[2017-07-27] MEDS: PANTOPRAZOLE SOD 40 MG DELAYED RELEASE TAB PO SCH ×2 (09:12→21:55)
[2017-07-27] MEDS: THIAMINE HCL 100 MG TAB PO SCH (09:12)
[2017-07-27] MEDS: LACTULOSE SYRUP 20 GM/30 ML CUP PO SCH ×2 (09:13→21:54)
[2017-07-27] MEDS: MULTIVITAMIN TAB PO SCH (09:13)
[2017-07-27] MEDS: DOCUSATE SODIUM 50 MG/SENNA 8.6 MG TAB PO SCH ×2 (09:13→21:54)
[2017-07-27] MEDS: POLYETHYLENE GLYCOL 17 GM PKG PO SCH (09:14)
[2017-07-27] MEDS: PSYLLIUM FIBER SF/GF 6 GM POWD PKT PO SCH ×2 (09:14→21:57)
[2017-07-27] MEDS: NICOTINE 14 MG/24 HR PATCH T-DERMAL SCH (09:18)
--- NOTE | 2017-07-27 09:37 | HHI.PR ---
Subjective Remarks very motivated, good po slept very well last night with increase Neurontin HS dose Objective Vitals Vital Signs Date Time Temp Pulse Resp B/P (MAP) Pulse Ox O2 Delivery O2 Flow Rate FiO2 07/27/17 08:43 98.7 80 18 111/58 (75) 94 115/57 (76) 107/59 (75) 07/27/17 04:00 97.8 81 20 142/61 (88) 95 07/27/17 00:00 98.5 86 20 132/72 (92) 96 07/26/17 21:00 86 07/26/17 20:00 98.7 98 20 130/77 (94) 95 136/82 (100) 07/26/17 16:00 97.4 90 20 163/81 (108) 95 157/71 (99) 07/26/17 12:00 97.4 94 18 180/76 (110) 95 157/71 (99) 07/26/17 11:15 81 I/O 07/26/17 07/26/17 07/26/17 07/27/17 07/27/17 07/27/17 07:00 15:00 23:00 07:00 15:00 23:00 Output Total 225 ml Balance -225 ml Output Urine Total 225 ml # Voids 4 2 # Bowel Movements 1 1 1 Result Diagram: 07/25/1792907/25/17929 Imaging Last Impressions Lower Extremity Ultrasound 07/25/17 Signed Impressions: Service Date/Time: Tuesday, July 25, 2017 17:47 - CONCLUSION: Normal examination. Albert Walden MD Abdomen X-Ray 07/25/17 Signed Impressions: Service Date/Time: Tuesday, July 25, 2017 09:35 - CONCLUSION: Nonspecific mildly distended small bowel. Some degree of ileus or obstruction can be considered. Nikko Mason MD Abdomen Ultrasound 07/25/17 0000 Signed Impressions: Service Date/Time: Tuesday, July 25, 2017 10:27 - CONCLUSION: Mild ascites. Nikko Mason MD Thoracic Spine MRI 07/22/17704 Signed Impressions: Service Date/Time: Saturday, July 22, 2017 12:06 - CONCLUSION: 1. Small bilateral pleural effusions. 2. Patent central canal. Caesar Shafer Jr., MD Lumbar Spine MRI 07/22/17704 Signed Impressions: Service Date/Time: Saturday, July 22, 2017 12:06 - CONCLUSION: 1. Mild degenerative disc disease at L2-L3. No spinal canal stenosis or neural foraminal stenosis is present. 2. Left upper quadrant varices. These were documented on prior CT from 06/29/4017 and are likely related to chronic liver disease/cirrhosis. Nikko Cote MD Cervical Spine MRI 07/22/17704 Signed Impressions: Service Date/Time: Saturday, July 22, 2017 12:06 - CONCLUSION: Degenerative disc disease at C5-C6 and C6-C7. However, no spinal canal stenosis or neural foraminal narrowing is present. Spinal cord demonstrates no abnormality. Nikko Cote MD Brain MRI 07/22/17704 Signed Impressions: Service Date/Time: Saturday, July 22, 2017 12:06 - CONCLUSION: Negative MRI of the brain for acute process. I do not see evidence for an ischemic event. Colten Nelson MD FACR Small Bowel X-Ray 07/10/17 0000 Signed Impressions: Service Date/Time: Monday, July 10, 2017 08:26 - CONCLUSION: 1. Diffuse small bowel dilatation and delayed small bowel transit time of approximately 5- 6 hours without focal transition point, intraluminal filling defect or gross mass. Findings are most consistent with moderate adynamic ileus. Bryson Downing MD Renal Ultrasound 07/10/17 0000 Signed Impressions: Service Date/Time: Monday, July 10, 2017 18:25 - CONCLUSION: 1. Unremarkable renal ultrasound. Mild ascites. Albert Walden MD Chest X-Ray 07/09/17 0600 Signed Impressions: Service Date/Time: July 06:10 - CONCLUSION: 1. Minimal basilar dependent density. Differential diagnosis includes atelectasis. Findings similar to prior exam. Albert Walden MD Chest CT 07/05/17 1635 Signed Impressions: Service Date/Time: Wednesday, July 05, 2017 18:11 - CONCLUSION: 1. Segmental consolidation with volume loss medial right lower lung. 2. Atelectasis or basilar consolidation left lower lung. 3. Mild amount of ascites. Caesar Ann MD Abdomen MRI 07/02/17 0000 Signed Impressions: Service Date/Time: June 16:34 - CONCLUSION: 1. Hepatomegaly and hepatic steatosis. No focal mass identified. 2. Moderate splenomegaly. 3. Small amount of ascites. 4. Small bilateral pleural effusions. Wilbert Howe MD Ankle X-Ray 07/01/17 0000 Signed Impressions: Service Date/Time: Saturday, July 01, 2017 10:22 - CONCLUSION: Soft tissue mass noted to be fluid filled on ultrasound 09/10/2012. Colten Nelson MD FACR Head CT 06/30/17 0000 Signed Impressions: Service Date/Time: Saturday, July 01, 2017 02:24 - CONCLUSION: 1. No acute intracranial abnormalities. Previous fixation left maxillary sinus. Albert Walden MD Cervical Spine CT 06/30/17 0000 Signed Impressions: Service Date/Time: Saturday, July 01, 2017 02:24 - CONCLUSION: Normal examination for a patient of this age. Albert Walden MD Abdomen/Pelvis CT 06/29/17 0000 Signed Impressions: Service Date/Time: Thursday, June 29, 2017 12:52 - CONCLUSION: 1. Hepatosplenomegaly and varices noted as above. 2. Atherosclerosis. 3. Abnormal diffuse heterogeneous appearance of the liver which may be related to either marked hepatic steatosis in an inhomogeneous fashion versus steatosis and underlying diffuse liver masses. An MRI of the abdomen with and without contrast may be helpful for further evaluation of this finding. Navjot Chirinos MD Objective Remarks awake and alert anicteric lungs- no rales, no wheezes regular rhythm abdomen- soft, good bowel sounds extremities + edema, no calf tenderness moves all extremities spontaneously needs assistance for ADLs Procedures 06/30/17 EGD A/P Problem List: (1) Esophageal varices ICD Code: I85.00 - Esophageal varices without bleeding (2) Gastrointestinal bleed ICD Code: K92.2 - Gastrointestinal hemorrhage, unspecified (3) GERD Status: Chronic (4) Alcohol use ICD Code: Z78.9 - Other specified health status Status: Acute (5) Tobacco abuse ICD Code: Z72.0 - Tobacco use Status: Chronic (6) Jaundice ICD Code: R17 - Unspecified jaundice (7) Gastritis ICD Code: K29.70 - Gastritis, unspecified, without bleeding Status: Acute (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 Continue physical therapy. Continue to monitor for continued bowel movements and improvement in GI symptoms. Ileus- resolved Improved- po intake improving. + BM ETOH Withdrawal -Resolved Continue folic acid Continue thiamine Continue multivitamin DON creatinine stabilizing Follow renal function no NSAIDs Hepatic Encephalopathy Liver cirrhosis bilateral LE edema Continue Xifaxan + LE edema- doppler negative for DVT started on Bumex per Nephrologu GI Bleed CBC shows no evidence of active bleed Etiology had been gastritis and duodenitis Continue Protonix bid minimal ascites on US 07/25 Generalized Weakness/Deconditioning continue PT Slow improvement No payor source for SNF Degree of weakness is greater than expected given patient's clinical presentation Neurologic findings were not suggestive of Guillain-Segovia syndrome, per neurology will not start NSAIds with DON Neurontin evening dose - helped a lots DVT Prophylaxis SCDs (high bleed risk)- GIB-on presentation, high risk of bleeding, varices, thrombocytopenia from cirrhosis Discharge Planning To much weakness for safe discharge SNF not yet an option due to lack of payor source Kera Christensen MD Jul 27, 2017 09:37
[2017-07-27] MEDS: ACETAMINOPHEN 325 MG TAB PO PRN ×2 (10:28→16:39)
--- NOTE | 2017-07-27 11:00 | HHI.HCPN ---
Reason for visit a. To assist with evaluation and management of symptoms including: pain, encephalopathy, and dyspnea b. To assist medical decision maker(s) with: better understanding of current medical conditions; weighing benefits/burdens of medical treatment options; making medical treatment decisions. . Subjective/Interval History Patient seen and examined for follow up today, laboratory data, imaging, and chart reviewed. Patient is sitting up in a wheel chair, he is awake, alert, and oriented x 3. He states he is still having ongoing pain in his legs, he describes the pain as a constant ache, he also complains of BLE edema. Lower extremity U/S negative for DVT, nephrology started patient on bumex 2mg daily on 07/25 for BLE edema. The patient also states his abdomen remains tender, he reports that he has been having more regular bowel movements, it is documented in the EMR that he has had 4 bowel movements in the past 24 hours. Abdominal XR on 07/25 revealed nonspecific mildly distended bowel, some degree of ileus or obstruction can be considered, abdominal U/S with mild ascites. Family/friend interactions Attempted to reach patient's son Major to provide an update, unable to leave a voicemail as his inbox is not set up. . Advance Directives Health Care Surrogate: Copy in medical record Advance Directive Specifics Date completed: 07/13/17 . Health Care Surrogate(s): German Martin (son) [phone] Jeanine Salgado (former spouse) [phone] Documented care wishes: No known documented care wishes. . Objective Vital Signs Date Time Temp Pulse Resp B/P (MAP) Pulse Ox O2 Delivery O2 Flow Rate FiO2 07/27/17 10:14 83 07/27/17 09:24 94 07/27/17 08:43 98.7 80 18 111/58 (75) 94 115/57 (76) 107/59 (75) 07/27/17 04:00 97.8 81 20 142/61 (88) 95 07/27/17 00:00 98.5 86 20 132/72 (92) 96 07/26/17 21:00 86 07/26/17 20:00 98.7 98 20 130/77 (94) 95 136/82 (100) 07/26/17 16:00 97.4 90 20 163/81 (108) 95 157/71 (99) 07/26/17 12:00 97.4 94 18 180/76 (110) 95 157/71 (99) 07/26/17 11:15 81 Intake & Output 07/27/17 07/27/17 07:00 19:00 Output Total 225 ml Balance -225 ml Output Urine Total 225 ml # Voids 2 # Bowel Movements 1 . Physical Exam CONSTITUTIONAL/GENERAL: This is an adequately nourished, middle aged male in no acute distress. TUBES/LINES/DRAINS: PIV 1 EYES: Pupils equal and round. No injection or drainage. ENT: Hearing grossly normal. Nose without bleeding or purulent drainage. CARDIOVASCULAR: Regular rate and rhythm without murmurs, gallops, or rubs. No JVD. Peripheral pulses symmetric. RESPIRATORY/CHEST: Breath sounds clear, diminished bilaterally. GASTROINTESTINAL: Abdomen soft, nontender to palpation, patient reports his abdomen has a a general tenderness. Active bowel sounds. GENITOURINARY: Voids. MUSCULOSKELETAL: Extremities without clubbing, cyanosis. BLE 2+ pitting edema. No mottling or clubbing. NEUROLOGICAL: Alert and awake. Oriented x 3. Follows commands. PSYCHIATRIC: No obvious anxiety/depression. no apparent hallucinations or other psychotic thought process. . Diagnostic Tests Laboratory Laboratory Tests Test 07/25/17 06:09 07/25/17 09:30 Blood Urea Nitrogen 11 MG/DL (7-18) 11 MG/DL (7-18) Creatinine 1.53 MG/DL (0.60-1.30) 1.47 MG/DL (0.60-1.30) Random Glucose 94 MG/DL (74-106) 90 MG/DL (74-106) Calcium Level 8.3 MG/DL (8.5-10.1) 8.6 MG/DL (8.5-10.1) Sodium Level 140 MEQ/L (136-145) 140 MEQ/L (136-145) Potassium Level 3.6 MEQ/L (3.5-5.1) 3.9 MEQ/L (3.5-5.1) Chloride Level 107 MEQ/L (98-107) 108 MEQ/L (98-107) Carbon Dioxide Level 26.5 MEQ/L (21.0-32.0) 28.2 MEQ/L (21.0-32.0) Anion Gap 7 MEQ/L (5-15) 4 MEQ/L (5-15) Estimat Glomerular Filtration Rate 48 ML/MIN (>89) 51 ML/MIN (>89) White Blood Count 4.1 TH/MM3 (4.0-11.0) Red Blood Count 3.17 MIL/MM3 (4.50-5.90) Hemoglobin 11.3 GM/DL (13.0-17.0) Hematocrit 32.6 % (39.0-51.0) Mean Corpuscular Volume 103.0 FL (80.0-100.0) Mean Corpuscular Hemoglobin 35.8 PG (27.0-34.0) Mean Corpuscular Hemoglobin Concent 34.8 % (32.0-36.0) Red Cell Distribution Width 16.2 % (11.6-17.2) Platelet Count 128 TH/MM3 (150-450) Mean Platelet Volume 8.3 FL (7.0-11.0) Total Protein 7.5 GM/DL (6.4-8.2) Albumin 2.9 GM/DL (3.4-5.0) Alkaline Phosphatase 83 U/L (45-117) Aspartate Amino Transf (AST/SGOT) 43 U/L (15-37) Alanine Aminotransferase (ALT/SGPT) 13 U/L (12-78) Total Bilirubin 1.4 MG/DL (0.2-1.0) . Result Diagram: 07/25/1792907/25/17929 Imaging Last 72 hours Impressions Lower Extremity Ultrasound 07/25/17 0000 Signed Impressions: Service Date/Time: Tuesday, July 25, 2017 17:47 - CONCLUSION: Normal examination. Albert Walden MD Abdomen X-Ray 07/25/17 Signed Impressions: Service Date/Time: Tuesday, July 25, 2017 09:35 - CONCLUSION: Nonspecific mildly distended small bowel. Some degree of ileus or obstruction can be considered. Nikko Mason MD Abdomen Ultrasound 07/25/17 0000 Signed Impressions: Service Date/Time: Tuesday, July 25, 2017 10:27 - CONCLUSION: Mild ascites. Nikko Mason MD Procedures 06/30/17: EGD . Assessment and Plan Disease Oriented Problem List: (1) Gastrointestinal bleed (2) Esophageal varices (3) Menendez esophagus (4) Jaundice (5) Gastritis (6) Tobacco abuse Symptom Scale: (1) Pain (2) Dyspnea (3) Encephalopathy Pertinent Non-Medical Issues Psychosocial:Patient is originally from [facility]. He moved to [place] approximately 20 years ago. 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 Patient is but has 4 adult children from this marriage. (Andrzej, Abbey, Nikko and Sergio). Apparently he also has a 14-year- old daughter from a different relationship; she lives in [place]. Spiritual: Restorationist ariana Legal: None known. Ethical issues impacting care: No known ethical issues impacting care at this time . . Important Contacts Major ([facility]), son: [phone] Tea Calhoun, spouse/former spouse: [phone] Abbey, daughter [phone] Nikko, son, Sergio, son: [phone] . Prognosis Patient is a 51-year-old male with multiple comorbid conditions. He was admitted with suspected GI bleed, persistent ileus, liver cirrhosis/elevated LFTs, thrombocytopenia/coagulopathy and hepatic encephalopathy. Now being treated for pneumonia. He is not a candidate for liver transplant. He is at high risk for ongoing complications and decline. . Code Status: Full Code Plan * FULL CODE * Decision-making: Patient has waxing and waning neurological status. Suggest shared decision making with patient's son German Martin ([facility]). * GOALS: Aggressive. * Symptom management - encephalopathy: Improved. Hyperalbuminemia/liver cirrhosis/elevated LFTs. Patient on lactulose 30mL TID, rifaximin 550mg BID. No recommendations at this time. * Symptom management - dyspnea:Resolved. On room air. Duonebs 1 ampule q 2hr PRN for shortness of breath. No recommendations. * Symptom management- pain: Multifactorial, patient's abdominal pain is intermittent, now C/O generalized pain. Gabapentin 600mg TID and 900mg QHS. Patient reports improvement in pain following increase in QHS tramadol. No recommendations at this time. * Palliative care will continue to follow this patient throughout his hospitalization to establish trust, assist with symptom management and clarification of medical treatment goals. . Attestation To help prompt me to consider important information that might be impacting today's encounter and assessment, information from prior notes written by myself or my colleagues may have been "brought forward" into today's note. My signature on this note, however, is an attestation that I personally performed the exam, history, and/or decision-making noted today, and, unless otherwise indicated, the interactions with patient, family, and staff as well as the review of records all occurred today. I also attest that the listed assessment and stated plan reflect my best clinical judgment today based on the combination of historical information, prior notes, and today's exam/ interactions. When time spent is documented, it refers only to time spent today by the signer, or if indicated, combined time spent today by collaborating physician/nurse practitioner. Dinora Lock Jul 27, 2017 11:00
--- NOTE | 2017-07-27 11:00 | HHI.HCPN ---
Reason for visit a. To assist with evaluation and management of symptoms including: pain, encephalopathy, and dyspnea b. To assist medical decision maker(s) with: better understanding of current medical conditions; weighing benefits/burdens of medical treatment options; making medical treatment decisions. . Subjective/Interval History Patient seen and examined for follow up today, laboratory data, imaging, and chart reviewed. Patient is sitting up in a wheel chair, he is awake, alert, and oriented x 3. He states he is still having ongoing pain in his legs, he describes the pain as a constant ache, he also complains of BLE edema. Lower extremity U/S negative for DVT, nephrology started patient on bumex 2mg daily on 07/25 for BLE edema. The patient also states his abdomen remains tender, he reports that he has been having more regular bowel movements, it is documented in the EMR that he has had 4 bowel movements in the past 24 hours. Abdominal XR on 07/25 revealed nonspecific mildly distended bowel, some degree of ileus or obstruction can be considered, abdominal U/S with mild ascites. Family/friend interactions Attempted to reach patient's son Major to provide an update, unable to leave a voicemail as his inbox is not set up. . Advance Directives Health Care Surrogate: Copy in medical record Advance Directive Specifics Date completed: 07/13/17 . Health Care Surrogate(s): German Martin (son) [phone] Jeanine Salgado (former spouse) [phone] Documented care wishes: No known documented care wishes. . Objective Vital Signs Date Time Temp Pulse Resp B/P (MAP) Pulse Ox O2 Delivery O2 Flow Rate FiO2 07/27/17 10:14 83 07/27/17 09:24 94 07/27/17 08:43 98.7 80 18 111/58 (75) 94 115/57 (76) 107/59 (75) 07/27/17 04:00 97.8 81 20 142/61 (88) 95 07/27/17 00:00 98.5 86 20 132/72 (92) 96 07/26/17 21:00 86 07/26/17 20:00 98.7 98 20 130/77 (94) 95 136/82 (100) 07/26/17 16:00 97.4 90 20 163/81 (108) 95 157/71 (99) 07/26/17 12:00 97.4 94 18 180/76 (110) 95 157/71 (99) 07/26/17 11:15 81 Intake & Output 07/27/17 07/27/17 07:00 19:00 Output Total 225 ml Balance -225 ml Output Urine Total 225 ml # Voids 2 # Bowel Movements 1 . Physical Exam CONSTITUTIONAL/GENERAL: This is an adequately nourished, middle aged male in no acute distress. TUBES/LINES/DRAINS: PIV 1 EYES: Pupils equal and round. No injection or drainage. ENT: Hearing grossly normal. Nose without bleeding or purulent drainage. CARDIOVASCULAR: Regular rate and rhythm without murmurs, gallops, or rubs. No JVD. Peripheral pulses symmetric. RESPIRATORY/CHEST: Breath sounds clear, diminished bilaterally. GASTROINTESTINAL: Abdomen soft, nontender to palpation, patient reports his abdomen has a a general tenderness. Active bowel sounds. GENITOURINARY: Voids. MUSCULOSKELETAL: Extremities without clubbing, cyanosis. BLE 2+ pitting edema. No mottling or clubbing. NEUROLOGICAL: Alert and awake. Oriented x 3. Follows commands. PSYCHIATRIC: No obvious anxiety/depression. no apparent hallucinations or other psychotic thought process. . Diagnostic Tests Laboratory Laboratory Tests Test 07/25/17 06:09 07/25/17 09:30 Blood Urea Nitrogen 11 MG/DL (7-18) 11 MG/DL (7-18) Creatinine 1.53 MG/DL (0.60-1.30) 1.47 MG/DL (0.60-1.30) Random Glucose 94 MG/DL (74-106) 90 MG/DL (74-106) Calcium Level 8.3 MG/DL (8.5-10.1) 8.6 MG/DL (8.5-10.1) Sodium Level 140 MEQ/L (136-145) 140 MEQ/L (136-145) Potassium Level 3.6 MEQ/L (3.5-5.1) 3.9 MEQ/L (3.5-5.1) Chloride Level 107 MEQ/L (98-107) 108 MEQ/L (98-107) Carbon Dioxide Level 26.5 MEQ/L (21.0-32.0) 28.2 MEQ/L (21.0-32.0) Anion Gap 7 MEQ/L (5-15) 4 MEQ/L (5-15) Estimat Glomerular Filtration Rate 48 ML/MIN (>89) 51 ML/MIN (>89) White Blood Count 4.1 TH/MM3 (4.0-11.0) Red Blood Count 3.17 MIL/MM3 (4.50-5.90) Hemoglobin 11.3 GM/DL (13.0-17.0) Hematocrit 32.6 % (39.0-51.0) Mean Corpuscular Volume 103.0 FL (80.0-100.0) Mean Corpuscular Hemoglobin 35.8 PG (27.0-34.0) Mean Corpuscular Hemoglobin Concent 34.8 % (32.0-36.0) Red Cell Distribution Width 16.2 % (11.6-17.2) Platelet Count 128 TH/MM3 (150-450) Mean Platelet Volume 8.3 FL (7.0-11.0) Total Protein 7.5 GM/DL (6.4-8.2) Albumin 2.9 GM/DL (3.4-5.0) Alkaline Phosphatase 83 U/L (45-117) Aspartate Amino Transf (AST/SGOT) 43 U/L (15-37) Alanine Aminotransferase (ALT/SGPT) 13 U/L (12-78) Total Bilirubin 1.4 MG/DL (0.2-1.0) . Result Diagram: 07/25/1792907/25/17929 Imaging Last 72 hours Impressions Lower Extremity Ultrasound 07/25/17 0000 Signed Impressions: Service Date/Time: Tuesday, July 25, 2017 17:47 - CONCLUSION: Normal examination. Albert Walden MD Abdomen X-Ray 07/25/17 Signed Impressions: Service Date/Time: Tuesday, July 25, 2017 09:35 - CONCLUSION: Nonspecific mildly distended small bowel. Some degree of ileus or obstruction can be considered. Nikko Mason MD Abdomen Ultrasound 07/25/17 0000 Signed Impressions: Service Date/Time: Tuesday, July 25, 2017 10:27 - CONCLUSION: Mild ascites. Nikko Mason MD Procedures 06/30/17: EGD . Assessment and Plan Disease Oriented Problem List: (1) Gastrointestinal bleed (2) Esophageal varices (3) Menendez esophagus (4) Jaundice (5) Gastritis (6) Tobacco abuse Symptom Scale: (1) Pain (2) Dyspnea (3) Encephalopathy Pertinent Non-Medical Issues Psychosocial:Patient is originally from [facility]. He moved to [place] approximately 20 years ago. 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 Patient is but has 4 adult children from this marriage. (Andrzej, Abbey, Nikko and Sergio). Apparently he also has a 14-year- old daughter from a different relationship; she lives in [place]. Spiritual: Yazidi ariana Legal: None known. Ethical issues impacting care: No known ethical issues impacting care at this time . . Important Contacts Major ([facility]), son: [phone] Tea Calhoun, spouse/former spouse: [phone] Abbey, daughter [phone] Nikko, son, Sergio, son: [phone] . Prognosis Patient is a 51-year-old male with multiple comorbid conditions. He was admitted with suspected GI bleed, persistent ileus, liver cirrhosis/elevated LFTs, thrombocytopenia/coagulopathy and hepatic encephalopathy. Now being treated for pneumonia. He is not a candidate for liver transplant. He is at high risk for ongoing complications and decline. . Code Status: Full Code Plan * FULL CODE * Decision-making: Patient has waxing and waning neurological status. Suggest shared decision making with patient's son German Martin ([facility]). * GOALS: Aggressive. * Symptom management - encephalopathy: Improved. Hyperalbuminemia/liver cirrhosis/elevated LFTs. Patient on lactulose 30mL TID, rifaximin 550mg BID. No recommendations at this time. * Symptom management - dyspnea:Resolved. On room air. Duonebs 1 ampule q 2hr PRN for shortness of breath. No recommendations. * Symptom management- pain: Multifactorial, patient's abdominal pain is intermittent, now C/O generalized pain. Gabapentin 600mg TID and 900mg QHS. Patient reports improvement in pain following increase in QHS tramadol. No recommendations at this time. * Palliative care will continue to follow this patient throughout his hospitalization to establish trust, assist with symptom management and clarification of medical treatment goals. . Attestation To help prompt me to consider important information that might be impacting today's encounter and assessment, information from prior notes written by myself or my colleagues may have been "brought forward" into today's note. My signature on this note, however, is an attestation that I personally performed the exam, history, and/or decision-making noted today, and, unless otherwise indicated, the interactions with patient, family, and staff as well as the review of records all occurred today. I also attest that the listed assessment and stated plan reflect my best clinical judgment today based on the combination of historical information, prior notes, and today's exam/ interactions. When time spent is documented, it refers only to time spent today by the signer, or if indicated, combined time spent today by collaborating physician/nurse practitioner. Dinora Lock Jul 27, 2017 11:00
--- NOTE | 2017-07-27 11:00 | HHI.HCPN ---
Reason for visit a. To assist with evaluation and management of symptoms including: pain, encephalopathy, and dyspnea b. To assist medical decision maker(s) with: better understanding of current medical conditions; weighing benefits/burdens of medical treatment options; making medical treatment decisions. . Subjective/Interval History Patient seen and examined for follow up today, laboratory data, imaging, and chart reviewed. Patient is sitting up in a wheel chair, he is awake, alert, and oriented x 3. He states he is still having ongoing pain in his legs, he describes the pain as a constant ache, he also complains of BLE edema. Lower extremity U/S negative for DVT, nephrology started patient on bumex 2mg daily on 07/25 for BLE edema. The patient also states his abdomen remains tender, he reports that he has been having more regular bowel movements, it is documented in the EMR that he has had 4 bowel movements in the past 24 hours. Abdominal XR on 07/25 revealed nonspecific mildly distended bowel, some degree of ileus or obstruction can be considered, abdominal U/S with mild ascites. Family/friend interactions Attempted to reach patient's son Major to provide an update, unable to leave a voicemail as his inbox is not set up. . Advance Directives Health Care Surrogate: Copy in medical record Advance Directive Specifics Date completed: 07/13/17 . Health Care Surrogate(s): German Martin (son) [phone] Jeanine Salgado (former spouse) [phone] Documented care wishes: No known documented care wishes. . Objective Vital Signs Date Time Temp Pulse Resp B/P (MAP) Pulse Ox O2 Delivery O2 Flow Rate FiO2 07/27/17 10:14 83 07/27/17 09:24 94 07/27/17 08:43 98.7 80 18 111/58 (75) 94 115/57 (76) 107/59 (75) 07/27/17 04:00 97.8 81 20 142/61 (88) 95 07/27/17 00:00 98.5 86 20 132/72 (92) 96 07/26/17 21:00 86 07/26/17 20:00 98.7 98 20 130/77 (94) 95 136/82 (100) 07/26/17 16:00 97.4 90 20 163/81 (108) 95 157/71 (99) 07/26/17 12:00 97.4 94 18 180/76 (110) 95 157/71 (99) 07/26/17 11:15 81 Intake & Output 07/27/17 07/27/17 07:00 19:00 Output Total 225 ml Balance -225 ml Output Urine Total 225 ml # Voids 2 # Bowel Movements 1 . Physical Exam CONSTITUTIONAL/GENERAL: This is an adequately nourished, middle aged male in no acute distress. TUBES/LINES/DRAINS: PIV 1 EYES: Pupils equal and round. No injection or drainage. ENT: Hearing grossly normal. Nose without bleeding or purulent drainage. CARDIOVASCULAR: Regular rate and rhythm without murmurs, gallops, or rubs. No JVD. Peripheral pulses symmetric. RESPIRATORY/CHEST: Breath sounds clear, diminished bilaterally. GASTROINTESTINAL: Abdomen soft, nontender to palpation, patient reports his abdomen has a a general tenderness. Active bowel sounds. GENITOURINARY: Voids. MUSCULOSKELETAL: Extremities without clubbing, cyanosis. BLE 2+ pitting edema. No mottling or clubbing. NEUROLOGICAL: Alert and awake. Oriented x 3. Follows commands. PSYCHIATRIC: No obvious anxiety/depression. no apparent hallucinations or other psychotic thought process. . Diagnostic Tests Laboratory Laboratory Tests Test 07/25/17 06:09 07/25/17 09:30 Blood Urea Nitrogen 11 MG/DL (7-18) 11 MG/DL (7-18) Creatinine 1.53 MG/DL (0.60-1.30) 1.47 MG/DL (0.60-1.30) Random Glucose 94 MG/DL (74-106) 90 MG/DL (74-106) Calcium Level 8.3 MG/DL (8.5-10.1) 8.6 MG/DL (8.5-10.1) Sodium Level 140 MEQ/L (136-145) 140 MEQ/L (136-145) Potassium Level 3.6 MEQ/L (3.5-5.1) 3.9 MEQ/L (3.5-5.1) Chloride Level 107 MEQ/L (98-107) 108 MEQ/L (98-107) Carbon Dioxide Level 26.5 MEQ/L (21.0-32.0) 28.2 MEQ/L (21.0-32.0) Anion Gap 7 MEQ/L (5-15) 4 MEQ/L (5-15) Estimat Glomerular Filtration Rate 48 ML/MIN (>89) 51 ML/MIN (>89) White Blood Count 4.1 TH/MM3 (4.0-11.0) Red Blood Count 3.17 MIL/MM3 (4.50-5.90) Hemoglobin 11.3 GM/DL (13.0-17.0) Hematocrit 32.6 % (39.0-51.0) Mean Corpuscular Volume 103.0 FL (80.0-100.0) Mean Corpuscular Hemoglobin 35.8 PG (27.0-34.0) Mean Corpuscular Hemoglobin Concent 34.8 % (32.0-36.0) Red Cell Distribution Width 16.2 % (11.6-17.2) Platelet Count 128 TH/MM3 (150-450) Mean Platelet Volume 8.3 FL (7.0-11.0) Total Protein 7.5 GM/DL (6.4-8.2) Albumin 2.9 GM/DL (3.4-5.0) Alkaline Phosphatase 83 U/L (45-117) Aspartate Amino Transf (AST/SGOT) 43 U/L (15-37) Alanine Aminotransferase (ALT/SGPT) 13 U/L (12-78) Total Bilirubin 1.4 MG/DL (0.2-1.0) . Result Diagram: 07/25/1792907/25/17929 Imaging Last 72 hours Impressions Lower Extremity Ultrasound 07/25/17 0000 Signed Impressions: Service Date/Time: Tuesday, July 25, 2017 17:47 - CONCLUSION: Normal examination. Albert Walden MD Abdomen X-Ray 07/25/17 Signed Impressions: Service Date/Time: Tuesday, July 25, 2017 09:35 - CONCLUSION: Nonspecific mildly distended small bowel. Some degree of ileus or obstruction can be considered. Nikko Mason MD Abdomen Ultrasound 07/25/17 0000 Signed Impressions: Service Date/Time: Tuesday, July 25, 2017 10:27 - CONCLUSION: Mild ascites. Nikko Mason MD Procedures 06/30/17: EGD . Assessment and Plan Disease Oriented Problem List: (1) Gastrointestinal bleed (2) Esophageal varices (3) Menendez esophagus (4) Jaundice (5) Gastritis (6) Tobacco abuse Symptom Scale: (1) Pain (2) Dyspnea (3) Encephalopathy Pertinent Non-Medical Issues Psychosocial:Patient is originally from [facility]. He moved to [place] approximately 20 years ago. 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 Patient is but has 4 adult children from this marriage. (Andrzej, Abbey, Nikko and Sergio). Apparently he also has a 14-year- old daughter from a different relationship; she lives in [place]. Spiritual: Yazidism ariana Legal: None known. Ethical issues impacting care: No known ethical issues impacting care at this time . . Important Contacts Major ([facility]), son: [phone] Tea Calhoun, spouse/former spouse: [phone] Abbey, daughter [phone] Nikko, son, Sergio, son: [phone] . Prognosis Patient is a 51-year-old male with multiple comorbid conditions. He was admitted with suspected GI bleed, persistent ileus, liver cirrhosis/elevated LFTs, thrombocytopenia/coagulopathy and hepatic encephalopathy. Now being treated for pneumonia. He is not a candidate for liver transplant. He is at high risk for ongoing complications and decline. . Code Status: Full Code Plan * FULL CODE * Decision-making: Patient has waxing and waning neurological status. Suggest shared decision making with patient's son German Martin ([facility]). * GOALS: Aggressive. * Symptom management - encephalopathy: Improved. Hyperalbuminemia/liver cirrhosis/elevated LFTs. Patient on lactulose 30mL TID, rifaximin 550mg BID. No recommendations at this time. * Symptom management - dyspnea:Resolved. On room air. Duonebs 1 ampule q 2hr PRN for shortness of breath. No recommendations. * Symptom management- pain: Multifactorial, patient's abdominal pain is intermittent, now C/O generalized pain. Gabapentin 600mg TID and 900mg QHS. Patient reports improvement in pain following increase in QHS tramadol. No recommendations at this time. * Palliative care will continue to follow this patient throughout his hospitalization to establish trust, assist with symptom management and clarification of medical treatment goals. . Attestation To help prompt me to consider important information that might be impacting today's encounter and assessment, information from prior notes written by myself or my colleagues may have been "brought forward" into today's note. My signature on this note, however, is an attestation that I personally performed the exam, history, and/or decision-making noted today, and, unless otherwise indicated, the interactions with patient, family, and staff as well as the review of records all occurred today. I also attest that the listed assessment and stated plan reflect my best clinical judgment today based on the combination of historical information, prior notes, and today's exam/ interactions. When time spent is documented, it refers only to time spent today by the signer, or if indicated, combined time spent today by collaborating physician/nurse practitioner. Dinora Lock Jul 27, 2017 11:00
[2017-07-27] MEDS: METOCLOPRAMIDE HCL 10 MG TAB PO SCH ×3 (12:35→21:55)
--- NOTE | 2017-07-27 16:40 | HHI.NPPN ---
Subjective History of Present Illness 51-year-old male with a past medical history of cirrhosis of the liver, bronchial asthma, depression, hyperlipidemia, pancreatitis, Menendez's esophagus, chronic abdominal pain, possible history of gastric ulcer and varices, questionable esophageal cancer who was admitted with abdominal pain and distension. I was called to see the patient because of elevated BUN and creatinine. Additional Remarks Patient is alert, no SOB, now in the wheelchair, complain of increase leg swelling, no SOB. Review of Systems General Constitutional: Fatigue Respiratory Lungs: Wheeze Cardiovascular Cardiac: CORTES Gastrointestinal Gastrointestinal: Abdominal Pain Objective Data Data 07/27/17 07/28/17 19:00 07:00 Intake Total 620 ml Balance 620 ml Intake Oral 620 ml # Voids 2 # Bowel Movements 2 Vital Signs Date Time Temp Pulse Resp B/P (MAP) Pulse Ox O2 Delivery O2 Flow Rate FiO2 07/27/17 16:30 98.7 78 20 127/61 (83) 96 07/27/17 13:01 98.6 88 18 141/65 (90) 96 07/27/17 10:14 83 07/27/17 09:24 94 07/27/17 08:43 98.7 80 18 111/58 (75) 94 115/57 (76) 107/59 (75) 07/27/17 04:00 97.8 81 20 142/61 (88) 95 07/27/17 00:00 98.5 86 20 132/72 (92) 96 07/26/17 21:00 86 07/26/17 20:00 98.7 98 20 130/77 (94) 95 136/82 (100) -: 07/25/17 0930 07/25/17 0930 Physical Exam General Appearance: No Acute Distress, Anxious Throat Throat Exam: Oral Mucosa [place] & Moist Neck Neck Exam: Neck Supple Pulmonary Resp Exam: Breath Sounds Equal, Rhonchi, Decreased Bases Cardiology CV Exam: Regular, Normal Sinus Rhythm Gastrointestinal/Abdomen GI Exam: Soft, Bowel Sounds Present, Distended Extremeties Extremities Exam: Moderate Edema, Pitting Edema Neurologic Neuro Exam: Alert, Awake, Oriented Assessment/Plan Assessment Summary: DON/Acute Renal Failure Problem List: (1) Acute kidney injury ICD Codes: N17.9 - Acute kidney failure, unspecified (2) Encephalopathy ICD Codes: G93.40 - Encephalopathy, unspecified (3) Anemia ICD Codes: D64.9 - Anemia, unspecified Status: Acute (4) Jaundice ICD Codes: R17 - Unspecified jaundice (5) Gastritis ICD Codes: K29.70 - Gastritis, unspecified, without bleeding Status: Acute (6) 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 Normal size kidneys and has Normal Na. in the urine. Urine Eosinophils is negative. Most likely has ATN causing DON. Has elevated Bilirubin. BP is stable, Last Creatinine was 1.4. Follow the urine out put and BMP. Avoid Nephrotoxins. Encourage oral intake. Increase Bumex, follow the urine out put and BMP. Told to restrict oral fluid intake. Linette Guerra MD Jul 27, 2017 16:40
[2017-07-28] VITALS (7 sets, daily range): BP systolic 107–141; BP diastolic 56–86; PULSE 68–96; RESP 18–20; TEMP 94.2–98.9; O2SAT 92–96
[2017-07-28] MEDS: METOCLOPRAMIDE HCL 10 MG TAB PO SCH ×4 (06:35→20:57)
[2017-07-28] MEDS: cloNIDine HCL 0.2 MG TAB PO SCH ×3 (06:36→20:59)
[2017-07-28] MEDS: BETHANECHOL CHL 25 MG TAB PO SCH ×3 (06:36→20:59)
[2017-07-28] MEDS: ACETAMINOPHEN 325 MG TAB PO PRN ×2 (06:39→18:24)
[2017-07-28] MEDS: BUMETANIDE 1 MG TAB PO SCH (08:27)
[2017-07-28] MEDS: PANTOPRAZOLE SOD 40 MG DELAYED RELEASE TAB PO SCH ×2 (08:28→20:58)
[2017-07-28] MEDS: RIFAXIMIN 550 MG TAB PO SCH ×2 (08:28→20:58)
[2017-07-28] MEDS: THIAMINE HCL 100 MG TAB PO SCH (08:29)
[2017-07-28] MEDS: DOCUSATE SODIUM 50 MG/SENNA 8.6 MG TAB PO SCH ×2 (08:29→20:58)
[2017-07-28] MEDS: guaiFENesin E.R. 600 MG TAB PO SCH ×2 (08:29→20:56)
[2017-07-28] MEDS: MULTIVITAMIN TAB PO SCH (08:29)
[2017-07-28] MEDS: PSYLLIUM FIBER SF/GF 6 GM POWD PKT PO SCH ×2 (08:30→21:00)
[2017-07-28] MEDS: POLYETHYLENE GLYCOL 17 GM PKG PO SCH (08:30)
[2017-07-28] MEDS: LACTULOSE SYRUP 20 GM/30 ML CUP PO SCH ×2 (08:30→20:56)
[2017-07-28] MEDS: REMOVE OLD PATCH T-DERMAL SCH (08:31)
[2017-07-28] MEDS: NICOTINE 14 MG/24 HR PATCH T-DERMAL SCH (08:31)
[2017-07-28] MEDS: GABAPENTIN 300 MG CAP PO SCH ×3 (08:41→20:56)
[2017-07-28] MEDS: SODIUM CHLORIDE 0.9% FLUSH 10 ML FLUSH IV FLUSH SCH ×2 (08:41→21:00)
--- NOTE | 2017-07-28 10:46 | HHI.PR ---
Subjective Remarks patient complains of epigastric discomfort with tenderness on exam, slight nausea , no vomiting states had a good BM last evening Objective Vitals Vital Signs Date Time Temp Pulse Resp B/P (MAP) Pulse Ox O2 Delivery O2 Flow Rate FiO2 07/28/17 08:33 98.3 79 18 107/58 (74) 94 07/28/17 05:36 94.2 80 20 120/57 (78) 92 07/28/17 01:10 98.1 88 20 131/69 (89) 96 07/28/17 00:48 96 07/27/17 22:07 99.5 82 20 95/48 (64) 93 07/27/17 16:30 98.7 78 20 127/61 (83) 96 07/27/17 13:01 98.6 88 18 141/65 (90) 96 I/O 07/27/17 07/27/17 07/27/17 07/28/17 07/28/17 07/28/17 07:00 15:00 23:00 07:00 15:00 23:00 Intake Total 620 ml 240 ml Output Total 225 ml 300 ml 1300 ml Balance -225 ml 620 ml -300 ml -1060 ml Intake Oral 620 ml 240 ml Output Urine Total 225 ml 300 ml 1300 ml # Voids 2 1 # Bowel Movements 1 2 1 1 Result Diagram: 07/25/1792907/25/17929 Imaging Last Impressions Lower Extremity Ultrasound 07/25/17 0000 Signed Impressions: Service Date/Time: Tuesday, July 25, 2017 17:47 - CONCLUSION: Normal examination. Albert Walden MD Abdomen X-Ray 07/25/17 0000 Signed Impressions: Service Date/Time: Tuesday, July 25, 2017 09:35 - CONCLUSION: Nonspecific mildly distended small bowel. Some degree of ileus or obstruction can be considered. Nikko Mason MD Abdomen Ultrasound 07/25/17 0000 Signed Impressions: Service Date/Time: Tuesday, July 25, 2017 10:27 - CONCLUSION: Mild ascites. Nikko Mason MD Thoracic Spine MRI 07/22/17704 Signed Impressions: Service Date/Time: Saturday, July 22, 2017 12:06 - CONCLUSION: 1. Small bilateral pleural effusions. 2. Patent central canal. Caesar Shafer Jr., MD Lumbar Spine MRI 07/22/17704 Signed Impressions: Service Date/Time: Saturday, July 22, 2017 12:06 - CONCLUSION: 1. Mild degenerative disc disease at L2-L3. No spinal canal stenosis or neural foraminal stenosis is present. 2. Left upper quadrant varices. These were documented on prior CT from 06/29/4017 and are likely related to chronic liver disease/cirrhosis. Nikko Cote MD Cervical Spine MRI 07/22/17704 Signed Impressions: Service Date/Time: Saturday, July 22, 2017 12:06 - CONCLUSION: Degenerative disc disease at C5-C6 and C6-C7. However, no spinal canal stenosis or neural foraminal narrowing is present. Spinal cord demonstrates no abnormality. Nikko Cote MD Brain MRI 07/22/17704 Signed Impressions: Service Date/Time: Saturday, July 22, 2017 12:06 - CONCLUSION: Negative MRI of the brain for acute process. I do not see evidence for an ischemic event. Colten Nelson MD FACR Small Bowel X-Ray 07/10/17 0000 Signed Impressions: Service Date/Time: Monday, July 10, 2017 08:26 - CONCLUSION: 1. Diffuse small bowel dilatation and delayed small bowel transit time of approximately 5- 6 hours without focal transition point, intraluminal filling defect or gross mass. Findings are most consistent with moderate adynamic ileus. Bryson Downing MD Renal Ultrasound 07/10/17 0000 Signed Impressions: Service Date/Time: Monday, July 10, 2017 18:25 - CONCLUSION: 1. Unremarkable renal ultrasound. Mild ascites. Albert Walden MD Chest X-Ray 07/09/17 0600 Signed Impressions: Service Date/Time: July 06:10 - CONCLUSION: 1. Minimal basilar dependent density. Differential diagnosis includes atelectasis. Findings similar to prior exam. Albert Walden MD Chest CT 07/05/17 1635 Signed Impressions: Service Date/Time: Wednesday, July 05, 2017 18:11 - CONCLUSION: 1. Segmental consolidation with volume loss medial right lower lung. 2. Atelectasis or basilar consolidation left lower lung. 3. Mild amount of ascites. Caesar Ann MD Abdomen MRI 07/02/17 0000 Signed Impressions: Service Date/Time: June 16:34 - CONCLUSION: 1. Hepatomegaly and hepatic steatosis. No focal mass identified. 2. Moderate splenomegaly. 3. Small amount of ascites. 4. Small bilateral pleural effusions. Wilbert Howe MD Ankle X-Ray 07/01/17 0000 Signed Impressions: Service Date/Time: Saturday, July 01, 2017 10:22 - CONCLUSION: Soft tissue mass noted to be fluid filled on ultrasound 09/10/2012. Colten Nelson MD FACR Head CT 06/30/17 0000 Signed Impressions: Service Date/Time: Saturday, July 01, 2017 02:24 - CONCLUSION: 1. No acute intracranial abnormalities. Previous fixation left maxillary sinus. Albert Walden MD Cervical Spine CT 06/30/17 0000 Signed Impressions: Service Date/Time: Saturday, July 01, 2017 02:24 - CONCLUSION: Normal examination for a patient of this age. Albert Walden MD Abdomen/Pelvis CT 06/29/17 0000 Signed Impressions: Service Date/Time: Thursday, June 29, 2017 12:52 - CONCLUSION: 1. Hepatosplenomegaly and varices noted as above. 2. Atherosclerosis. 3. Abnormal diffuse heterogeneous appearance of the liver which may be related to either marked hepatic steatosis in an inhomogeneous fashion versus steatosis and underlying diffuse liver masses. An MRI of the abdomen with and without contrast may be helpful for further evaluation of this finding. Navjot Chirinos MD Objective Remarks awake and alert anicteric lungs- no rales, no wheezes regular rhythm abdomen- soft, good bowel sounds, + tenderness epigastric area extremities + edema, no calf tenderness moves all extremities spontaneously needs assistance for ADLs Procedures 06/30/17 EGD A/P Problem List: (1) Esophageal varices ICD Code: I85.00 - Esophageal varices without bleeding (2) Gastrointestinal bleed ICD Code: K92.2 - Gastrointestinal hemorrhage, unspecified (3) GERD Status: Chronic (4) Alcohol use ICD Code: Z78.9 - Other specified health status Status: Acute (5) Tobacco abuse ICD Code: Z72.0 - Tobacco use Status: Chronic (6) Jaundice ICD Code: R17 - Unspecified jaundice (7) Gastritis ICD Code: K29.70 - Gastritis, unspecified, without bleeding Status: Acute (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 Continue physical therapy. Continue to monitor for continued bowel movements and improvement in GI symptoms. Ileus- resolved Epigastric pain this am - check lipase- r/o pancreatitis + flatus + BM ETOH Withdrawal -Resolved Continue folic acid Continue thiamine Continue multivitamin DON creatinine stabilizing Follow renal function on Bumex . check BMP no NSAIDs bilateral LE edema Continue Xifaxan + LE edema- doppler negative for DVT started on Bumex per Nephrologu GI Bleed Hepatic Encephalopathy Liver cirrhosis - now with epigastric discomfort- check lipase- CBC shows no evidence of active bleed Etiology had been gastritis and duodenitis Continue Protonix bid minimal ascites on US 07/25 Generalized Weakness/Deconditioning continue PT Slow improvement No payor source for SNF Degree of weakness is greater than expected given patient's clinical presentation will not start NSAIds with DON Neurontin evening dose - helped a lots ideally - needs SNF DVT Prophylaxis SCDs (high bleed risk)- GIB-on presentation, high risk of bleeding, varices, thrombocytopenia from cirrhosis Discharge Planning To much weakness for safe discharge SNF not yet an option due to lack of payor source Kera Christensen MD Jul 28, 2017 10:46
[2017-07-28] MEDS: ONDANSETRON HCL 4 MG/2 ML VIAL IVP PRN (13:24)
[2017-07-28 16:48] LABS: ALBUMIN 2.9 GM/DL (3.4-5.0); ALKALINE PHOSPHATASE 109 U/L (45-117); ALT (GPT) 17 U/L (12-78); AST (GOT) 56 U/L (15-37); BICARBONATE 30.7 MEQ/L (21.0-32.0); BLOOD UREA NITROGEN 13 MG/DL (7-18); CALCIUM 7.8 MG/DL (8.5-10.1); CHLORIDE 96 MEQ/L (98-107); CREATININE 1.64 MG/DL (0.60-1.30); GLOMERULAR FILTRATION RATE 45 ML/MIN (>89); GLUCOSE,RANDOM 82 MG/DL (74-106); LIPASE 862 U/L (73-393); SODIUM (NA) 137 MEQ/L (136-145); TOTAL BILIRUBIN ADULT 1.2 MG/DL (0.2-1.0); TOTAL PROTEIN 7.8 GM/DL (6.4-8.2)
[2017-07-28] MEDS ORDERED: NS + KCL 20 MEQ INJ 1,000 ML IV SCH (17:30)
[2017-07-28] MEDS ORDERED: POTASSIUM CHLORIDE 20 MEQ CONTROLLED RELEASE TAB PO ONE (18:00)
[2017-07-28] MEDS ORDERED: POTASSIUM CHLOR 10 MEQ PREMIX 100 ML IV ONE (18:00)
--- NOTE | 2017-07-28 19:32 | HHI.NPPN ---
Subjective History of Present Illness 51-year-old male with a past medical history of cirrhosis of the liver, bronchial asthma, depression, hyperlipidemia, pancreatitis, Menendez's esophagus, chronic abdominal pain, possible history of gastric ulcer and varices, questionable esophageal cancer who was admitted with abdominal pain and distension. I was called to see the patient because of elevated BUN and creatinine. Additional Remarks Patient is alert, no SOB, feeling better, still has swelling in the legs. Review of Systems General Constitutional: Fatigue Respiratory Lungs: Wheeze Cardiovascular Cardiac: CORTES Gastrointestinal Gastrointestinal: Abdominal Pain Objective Data Data 07/28/17 07/29/17 19:00 07:00 Intake Total 960 ml Output Total 700 ml Balance 260 ml Intake Oral 960 ml Output Urine Total 700 ml # Voids 1 # Bowel Movements 1 Vital Signs Date Time Temp Pulse Resp B/P (MAP) Pulse Ox O2 Delivery O2 Flow Rate FiO2 07/28/17 17:15 98.3 88 18 141/86 (104) 96 07/28/17 12:34 98.1 83 18 111/56 (74) 94 07/28/17 08:33 98.3 79 18 107/58 (74) 94 07/28/17 05:36 94.2 80 20 120/57 (78) 92 07/28/17 01:10 98.1 88 20 131/69 (89) 96 07/28/17 00:48 96 07/27/17 22:07 99.5 82 20 95/48 (64) 93 -: 07/25/17 0930 07/28/17 1505 Physical Exam General Appearance: No Acute Distress, Anxious Throat Throat Exam: Oral Mucosa [place] & Moist Neck Neck Exam: Neck Supple Pulmonary Resp Exam: Breath Sounds Equal, Rhonchi, Decreased Bases Cardiology CV Exam: Regular, Normal Sinus Rhythm Gastrointestinal/Abdomen GI Exam: Soft, Bowel Sounds Present, Distended Extremeties Extremities Exam: Moderate Edema, Pitting Edema Neurologic Neuro Exam: Alert, Awake, Oriented Assessment/Plan Assessment Summary: DON/Acute Renal Failure Problem List: (1) Acute kidney injury ICD Codes: N17.9 - Acute kidney failure, unspecified (2) Encephalopathy ICD Codes: G93.40 - Encephalopathy, unspecified (3) Anemia ICD Codes: D64.9 - Anemia, unspecified Status: Acute (4) Jaundice ICD Codes: R17 - Unspecified jaundice (5) Gastritis ICD Codes: K29.70 - Gastritis, unspecified, without bleeding Status: Acute (6) 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 Normal size kidneys and has Normal Na. in the urine. Urine Eosinophils is negative. Most likely has ATN causing DON. Has elevated Bilirubin. BP is stable, Follow the urine out put and BMP. Avoid Nephrotoxins. Encourage oral intake. Creatinine increase to 1.6, possibly related to diuretics. K was low and replaced. Continue Bumex. Linette Guerra MD Jul 28, 2017 19:32
[2017-07-28] MEDS: D5-NS + KCL 20 MEQ INJ 1,000 ML IV SCH (21:03)
[2017-07-29] VITALS (8 sets, daily range): BP systolic 105–122; BP diastolic 55–60; PULSE 69–85; RESP 17–18; TEMP 98.2–98.6; O2SAT 93–97
[2017-07-29] MEDS: ACETAMINOPHEN 325 MG TAB PO PRN (04:29)
[2017-07-29] MEDS: BETHANECHOL CHL 25 MG TAB PO SCH ×3 (06:15→20:19)
[2017-07-29] MEDS: cloNIDine HCL 0.2 MG TAB PO SCH ×3 (06:16→20:19)
[2017-07-29] MEDS: METOCLOPRAMIDE HCL 10 MG TAB PO SCH ×4 (06:17→20:16)
--- NOTE | 2017-07-29 07:05 | HHI.PR ---
Subjective Remarks pain in mm now not cramping though Objective Vital Signs Date Time Temp Pulse Resp B/P (MAP) Pulse Ox O2 Delivery O2 Flow Rate FiO2 07/29/17 00:00 98.4 79 18 105/55 (72) 93 07/28/17 20:00 98.9 68 18 115/62 (79) 93 07/28/17 17:15 98.3 88 18 141/86 (104) 96 07/28/17 12:34 98.1 83 18 111/56 (74) 94 07/28/17 08:33 98.3 79 18 107/58 (74) 94 I/O 07/28/17 07/28/17 07/28/17 07/29/17 07/29/17 07/29/17 07:00 15:00 23:00 07:00 15:00 23:00 Intake Total 240 ml 960 ml Output Total 1300 ml 700 ml Balance -1060 ml 260 ml Intake Oral 240 ml 960 ml Output Urine Total 1300 ml 700 ml # Voids 1 # Bowel Movements 1 1 Result Diagram: 07/25/17 0930 07/28/17 1505 Objective Remarks awake alert can stand with great effort and uses his arms a lot ip quad and ta 5/5 walks and can take larger steps edema and some redness lower legs Assessment and Plan Assessment and Plan imp i dw PT gait getting better mri brain and cord neg standing bp ok pain inc neurontin i would add mobic but creat up a little so defer to med team crp rf neg oob to chair most of day plz dvt prophylaxis? defer to med team 07/29/17 walking a lot better on tid neurontin we could push this dose up to 1200 tid if it is felt by med team that the neurontin is not the cause of ble edema will need rehab keep off narcotics asking for mm relaxers but no spasms or cramps robertoley to help check rpr Bharath Lama MD Jul 29, 2017 07:05
[2017-07-29] MEDS: SODIUM CHLORIDE 0.9% FLUSH 10 ML FLUSH IV FLUSH SCH ×2 (08:17→20:20)
[2017-07-29] MEDS: PSYLLIUM FIBER SF/GF 6 GM POWD PKT PO SCH ×2 (08:23→20:23)
[2017-07-29] MEDS: LACTULOSE SYRUP 20 GM/30 ML CUP PO SCH ×2 (08:23→20:16)
[2017-07-29] MEDS: PANTOPRAZOLE SOD 40 MG DELAYED RELEASE TAB PO SCH ×2 (08:24→20:19)
[2017-07-29] MEDS: MULTIVITAMIN TAB PO SCH (08:24)
[2017-07-29] MEDS: THIAMINE HCL 100 MG TAB PO SCH (08:24)
[2017-07-29] MEDS: guaiFENesin E.R. 600 MG TAB PO SCH (08:24)
[2017-07-29] MEDS: RIFAXIMIN 550 MG TAB PO SCH ×2 (08:24→20:20)
[2017-07-29] MEDS: DOCUSATE SODIUM 50 MG/SENNA 8.6 MG TAB PO SCH ×2 (08:24→20:23)
[2017-07-29] MEDS: POLYETHYLENE GLYCOL 17 GM PKG PO SCH (08:24)
[2017-07-29] MEDS: REMOVE OLD PATCH T-DERMAL SCH (08:29)
[2017-07-29] MEDS: NICOTINE 14 MG/24 HR PATCH T-DERMAL SCH (08:29)
--- NOTE | 2017-07-29 08:31 | HHI.PR ---
Subjective Remarks abdominal pain better- "a little pinch" pointing to the left upper quadrant area no nausea or vomiting + BM this am Objective Vitals Vital Signs Date Time Temp Pulse Resp B/P (MAP) Pulse Ox O2 Delivery O2 Flow Rate FiO2 07/29/17 04:00 98.2 85 18 111/57 (75) 95 07/29/17 02:11 85 07/29/17 00:00 98.4 79 18 105/55 (72) 93 07/28/17 20:00 98.9 68 18 115/62 (79) 93 07/28/17 17:15 98.3 88 18 141/86 (104) 96 07/28/17 12:34 98.1 83 18 111/56 (74) 94 07/28/17 08:33 98.3 79 18 107/58 (74) 94 I/O 07/28/17 07/28/17 07/28/17 07/29/17 07/29/17 07/29/17 07:00 15:00 23:00 07:00 15:00 23:00 Intake Total 240 ml 960 ml Output Total 1300 ml 700 ml 2000 ml Balance -1060 ml 260 ml -2000 ml Intake Oral 240 ml 960 ml Output Urine Total 1300 ml 700 ml 2000 ml # Voids 1 # Bowel Movements 1 1 1 Result Diagram: 07/25/17 0930 07/28/17 1505 Imaging Last Impressions Lower Extremity Ultrasound 07/25/17 0000 Signed Impressions: Service Date/Time: Tuesday, July 25, 2017 17:47 - CONCLUSION: Normal examination. Albert Walden MD Abdomen X-Ray 07/25/17 0000 Signed Impressions: Service Date/Time: Tuesday, July 25, 2017 09:35 - CONCLUSION: Nonspecific mildly distended small bowel. Some degree of ileus or obstruction can be considered. Nikko Mason MD Abdomen Ultrasound 07/25/17 0000 Signed Impressions: Service Date/Time: Tuesday, July 25, 2017 10:27 - CONCLUSION: Mild ascites. Nikko Mason MD Thoracic Spine MRI 07/22/17704 Signed Impressions: Service Date/Time: Saturday, July 22, 2017 12:06 - CONCLUSION: 1. Small bilateral pleural effusions. 2. Patent central canal. Caesar Shafer Jr., MD Lumbar Spine MRI 07/22/17704 Signed Impressions: Service Date/Time: Saturday, July 22, 2017 12:06 - CONCLUSION: 1. Mild degenerative disc disease at L2-L3. No spinal canal stenosis or neural foraminal stenosis is present. 2. Left upper quadrant varices. These were documented on prior CT from 06/29/4017 and are likely related to chronic liver disease/cirrhosis. Nikko Cote MD Cervical Spine MRI 07/22/17704 Signed Impressions: Service Date/Time: Saturday, July 22, 2017 12:06 - CONCLUSION: Degenerative disc disease at C5-C6 and C6-C7. However, no spinal canal stenosis or neural foraminal narrowing is present. Spinal cord demonstrates no abnormality. Nikko Cote MD Brain MRI 07/22/17704 Signed Impressions: Service Date/Time: Saturday, July 22, 2017 12:06 - CONCLUSION: Negative MRI of the brain for acute process. I do not see evidence for an ischemic event. Colten Nelson MD FACR Small Bowel X-Ray 07/10/17 0000 Signed Impressions: Service Date/Time: Monday, July 10, 2017 08:26 - CONCLUSION: 1. Diffuse small bowel dilatation and delayed small bowel transit time of approximately 5- 6 hours without focal transition point, intraluminal filling defect or gross mass. Findings are most consistent with moderate adynamic ileus. Bryson Downing MD Renal Ultrasound 07/10/17 0000 Signed Impressions: Service Date/Time: Monday, July 10, 2017 18:25 - CONCLUSION: 1. Unremarkable renal ultrasound. Mild ascites. Albert Walden MD Chest X-Ray 07/09/17 0600 Signed Impressions: Service Date/Time: July 06:10 - CONCLUSION: 1. Minimal basilar dependent density. Differential diagnosis includes atelectasis. Findings similar to prior exam. Albert Walden MD Chest CT 07/05/17 1635 Signed Impressions: Service Date/Time: Wednesday, July 05, 2017 18:11 - CONCLUSION: 1. Segmental consolidation with volume loss medial right lower lung. 2. Atelectasis or basilar consolidation left lower lung. 3. Mild amount of ascites. Caesar Ann MD Abdomen MRI 07/02/17 0000 Signed Impressions: Service Date/Time: June 16:34 - CONCLUSION: 1. Hepatomegaly and hepatic steatosis. No focal mass identified. 2. Moderate splenomegaly. 3. Small amount of ascites. 4. Small bilateral pleural effusions. Wilbert Howe MD Ankle X-Ray 07/01/17 0000 Signed Impressions: Service Date/Time: Saturday, July 01, 2017 10:22 - CONCLUSION: Soft tissue mass noted to be fluid filled on ultrasound 09/10/2012. Colten Nelson MD FACR Head CT 06/30/17 0000 Signed Impressions: Service Date/Time: Saturday, July 01, 2017 02:24 - CONCLUSION: 1. No acute intracranial abnormalities. Previous fixation left maxillary sinus. Albert Walden MD Cervical Spine CT 06/30/17 0000 Signed Impressions: Service Date/Time: Saturday, July 01, 2017 02:24 - CONCLUSION: Normal examination for a patient of this age. Albert Walden MD Abdomen/Pelvis CT 06/29/17 0000 Signed Impressions: Service Date/Time: Thursday, June 29, 2017 12:52 - CONCLUSION: 1. Hepatosplenomegaly and varices noted as above. 2. Atherosclerosis. 3. Abnormal diffuse heterogeneous appearance of the liver which may be related to either marked hepatic steatosis in an inhomogeneous fashion versus steatosis and underlying diffuse liver masses. An MRI of the abdomen with and without contrast may be helpful for further evaluation of this finding. Navjot Chirinos MD Objective Remarks awake and alert anicteric lungs- no rales, no wheezes regular rhythm abdomen- soft, good bowel sounds,no guarding, no tenderness, good bowel sounds, no rebound tenderness extremities + edema, no calf tenderness moves all extremities spontaneously, limited by edema needs assistance for ADLs Procedures 06/30/17 EGD A/P Problem List: (1) Esophageal varices ICD Code: I85.00 - Esophageal varices without bleeding (2) Gastrointestinal bleed ICD Code: K92.2 - Gastrointestinal hemorrhage, unspecified (3) GERD Status: Chronic (4) Alcohol use ICD Code: Z78.9 - Other specified health status Status: Acute (5) Tobacco abuse ICD Code: Z72.0 - Tobacco use Status: Chronic (6) Jaundice ICD Code: R17 - Unspecified jaundice (7) Gastritis ICD Code: K29.70 - Gastritis, unspecified, without bleeding Status: Acute (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 Continue physical therapy. Continue to monitor for continued bowel movements and improvement in GI symptoms. Ileus- resolved Acute pancreatitis- lipase elevated 500s 07/28- recheck today - abdominal pain better, exam benign -recheck lipase today- if improved- start liquids DON HYpokalemia- 2.7- 07/28 creatinine stabilizing K replaced recheck today Bumex held yesterday- restart 2 mg po bid with KCL bid ff BMP bilateral LE edema Continue Xifaxan + LE edema- doppler negative for DVT on Bumex per Nephrology GI Bleed Hepatic Encephalopathy Liver cirrhosis CBC shows no evidence of active bleed Etiology had been gastritis and duodenitis Continue Protonix bid minimal ascites on US 07/25 Generalized Weakness/Deconditioning continue PT Slow improvement No payor source for SNF Degree of weakness is greater than expected given patient's clinical presentation will not start NSAIds with DON Neurontin evening dose - helped a lot- continue to monitor and adjust ideally - needs SNF ETOH Withdrawal -Resolved Continue folic acid Continue thiamine Continue multivitamin DVT Prophylaxis SCDs (high bleed risk)- GIB-on presentation, high risk of bleeding, varices, thrombocytopenia from cirrhosis Discharge Planning To much weakness for safe discharge SNF not yet an option due to lack of payor source Kera Christensen MD Jul 29, 2017 08:31
[2017-07-29] MEDS: GABAPENTIN 300 MG CAP PO SCH ×3 (08:32→20:18)
[2017-07-29] MEDS: POTASSIUM CHLORIDE 10 MEQ CAP PO SCH ×2 (09:55→20:18)
[2017-07-29] MEDS: BUMETANIDE 1 MG TAB PO SCH ×2 (09:56→20:20)
--- NOTE | 2017-07-29 11:24 | HHI.HCPN ---
Reason for visit a. To assist with evaluation and management of symptoms including: pain, encephalopathy, and dyspnea b. To assist medical decision maker(s) with: better understanding of current medical conditions; weighing benefits/burdens of medical treatment options; making medical treatment decisions. . (Dinora Lock) Subjective/Interval History Patient seen and examined today, no family at bedside, patient resting in bed. Awake, alert, and oriented x 3. Patient stated he still has persistent abdominal pain, however he describes the pain differently than previous abdominal pain. He describes the pain as an intermittent sharp pinch in his LUQ , lipase elevated yesterday at 862, recheck pending today. He endorses that his continues to have regular bowel movements, 6 BMs documented in the past 25 hours. Patient complains of persistent pain in BLE and edema, he states he feels the swelling in his legs has improved slightly. (Dinora Lock) Advance Directives Health Care Surrogate: Copy in medical record (Dinora Lock) Advance Directive Specifics Date completed: 07/13/17 . Health Care Surrogate(s): German Martin (son) [phone] Jeanine Salgado (former spouse) [phone] Documented care wishes: No known documented care wishes. . (Dinora Lock) Objective Vital Signs Date Time Temp Pulse Resp B/P (MAP) Pulse Ox O2 Delivery O2 Flow Rate FiO2 07/29/17 08:37 98.5 69 18 108/55 (72) 95 07/29/17 04:00 98.2 85 18 111/57 (75) 95 07/29/17 02:11 85 07/29/17 00:00 98.4 79 18 105/55 (72) 93 07/28/17 20:00 98.9 68 18 115/62 (79) 93 07/28/17 17:15 98.3 88 18 141/86 (104) 96 07/28/17 12:34 98.1 83 18 111/56 (74) 94 Intake & Output 07/29/17 07/29/17 07:00 19:00 Output Total 2000 ml Balance -2000 ml Output Urine Total 2000 ml # Bowel Movements 1 . Physical Exam CONSTITUTIONAL/GENERAL: This is an adequately nourished, middle aged male in no acute distress. TUBES/LINES/DRAINS: PIV 1 EYES: Pupils equal and round. No injection or drainage. ENT: Hearing grossly normal. Nose without bleeding or purulent drainage. CARDIOVASCULAR: Regular rate and rhythm without murmurs, gallops, or rubs. No JVD. Peripheral pulses symmetric. RESPIRATORY/CHEST: Breath sounds clear, diminished bilaterally. GASTROINTESTINAL: Abdomen soft, nontender to palpation, patient reports his abdomen has a a general tenderness. Active bowel sounds. GENITOURINARY: Voids. MUSCULOSKELETAL: Extremities without clubbing, cyanosis. BLE 2+ pitting edema. No mottling or clubbing. NEUROLOGICAL: Alert and awake. Oriented x 3. Follows commands. PSYCHIATRIC: No obvious anxiety/depression. No apparent hallucinations or other psychotic thought process. . (Dinora Lock) Diagnostic Tests Laboratory Laboratory Tests Test 07/28/17 15:05 07/29/17 08:22 Blood Urea Nitrogen 13 MG/DL (7-18) Creatinine 1.64 MG/DL (0.60-1.30) Random Glucose 82 MG/DL (74-106) Total Protein 7.8 GM/DL (6.4-8.2) Albumin 2.9 GM/DL (3.4-5.0) Calcium Level 7.8 MG/DL (8.5-10.1) Alkaline Phosphatase 109 U/L (45-117) Aspartate Amino Transf (AST/SGOT) 56 U/L (15-37) Alanine Aminotransferase (ALT/SGPT) 17 U/L (12-78) Total Bilirubin 1.2 MG/DL (0.2-1.0) Sodium Level 137 MEQ/L (136-145) Potassium Level 2.8 MEQ/L (3.5-5.1) Chloride Level 96 MEQ/L (98-107) Carbon Dioxide Level 30.7 MEQ/L (21.0-32.0) Anion Gap 10 MEQ/L (5-15) Estimat Glomerular Filtration Rate 45 ML/MIN (>89) Lipase 862 U/L (73-393) (Dinora Lock) Result Diagram: 07/25/17 0930 07/28/17 1505 Procedures 06/30/17: EGD . (Dinora Lock) Assessment and Plan Disease Oriented Problem List: (1) Gastrointestinal bleed (2) Esophageal varices (3) Menendez esophagus (4) Jaundice (5) Gastritis (6) Tobacco abuse Symptom Scale: (1) Pain (2) Dyspnea (3) Encephalopathy Pertinent Non-Medical Issues Psychosocial:Patient is originally from [facility]. He moved to [place] approximately 20 years ago. 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 Patient is but has 4 adult children from this marriage. (Abbey Donnelly, Nikko and Sergio). Apparently he also has a 14-year- old daughter from a different relationship; she lives in [place]. Spiritual: [employer] ariana Legal: None known. Ethical issues impacting care: No known ethical issues impacting care at this time . . Important Contacts Major ([facility]), son: [phone] Tea Calhoun, spouse/former spouse: [phone] Abbey, daughter [phone] Nikko, son, Sergio, son: [phone] . Prognosis Patient is a 51-year-old male with multiple comorbid conditions. He was admitted with suspected GI bleed, persistent ileus, liver cirrhosis/elevated LFTs, thrombocytopenia/coagulopathy and hepatic encephalopathy. Now being treated for pneumonia. He is not a candidate for liver transplant. He is at high risk for ongoing complications and decline. . Code Status: Full Code Plan * FULL CODE * Decision-making: Patient has waxing and waning neurological status. Suggest shared decision making with patient's son German Martin ([facility]). * GOALS: Aggressive. * Symptom management - encephalopathy: Resolved. No recommendations at this time. * Symptom management - dyspnea:Resolved. On room air. Duonebs 1 ampule q 2hr PRN for shortness of breath. No recommendations. * Symptom management- pain: Multifactorial, patient's abdominal pain is intermittent, now C/O generalized pain. Gabapentin 600mg TID and 900mg QHS. Patient reports improvement in pain following increase in QHS tramadol. No recommendations at this time. * Palliative care will continue to follow this patient throughout his hospitalization to establish trust, assist with symptom management and clarification of medical treatment goals. . (Dinora Lock) Attestation To help prompt me to consider important information that might be impacting today's encounter and assessment, information from prior notes written by myself or my colleagues may have been "brought forward" into today's note. My signature on this note, however, is an attestation that I personally performed the exam, history, and/or decision-making noted today, and, unless otherwise indicated, the interactions with patient, family, and staff as well as the review of records all occurred today. I also attest that the listed assessment and stated plan reflect my best clinical judgment today based on the combination of historical information, prior notes, and today's exam/ interactions. When time spent is documented, it refers only to time spent today by the signer, or if indicated, combined time spent today by collaborating physician/nurse practitioner. (Dinora Lock) Collaborating MD Comments Chart reviewed. 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 Above note reviewed and I concur. . (Albert Garcia MD) Dinora Lock Jul 29, 2017 11:24 Albert Garcia MD Jul 30, 2017 17:21
--- NOTE | 2017-07-29 11:24 | HHI.HCPN ---
Reason for visit a. To assist with evaluation and management of symptoms including: pain, encephalopathy, and dyspnea b. To assist medical decision maker(s) with: better understanding of current medical conditions; weighing benefits/burdens of medical treatment options; making medical treatment decisions. . (Dinora Lock) Subjective/Interval History Patient seen and examined today, no family at bedside, patient resting in bed. Awake, alert, and oriented x 3. Patient stated he still has persistent abdominal pain, however he describes the pain differently than previous abdominal pain. He describes the pain as an intermittent sharp pinch in his LUQ , lipase elevated yesterday at 862, recheck pending today. He endorses that his continues to have regular bowel movements, 6 BMs documented in the past 25 hours. Patient complains of persistent pain in BLE and edema, he states he feels the swelling in his legs has improved slightly. (Dinora Lock) Advance Directives Health Care Surrogate: Copy in medical record (Dinora Lock) Advance Directive Specifics Date completed: 07/13/17 . Health Care Surrogate(s): German Matrin (son) [phone] Jeanine Salgado (former spouse) [phone] Documented care wishes: No known documented care wishes. . (Dinora Lock) Objective Vital Signs Date Time Temp Pulse Resp B/P (MAP) Pulse Ox O2 Delivery O2 Flow Rate FiO2 07/29/17 08:37 98.5 69 18 108/55 (72) 95 07/29/17 04:00 98.2 85 18 111/57 (75) 95 07/29/17 02:11 85 07/29/17 00:00 98.4 79 18 105/55 (72) 93 07/28/17 20:00 98.9 68 18 115/62 (79) 93 07/28/17 17:15 98.3 88 18 141/86 (104) 96 07/28/17 12:34 98.1 83 18 111/56 (74) 94 Intake & Output 07/29/17 07/29/17 07:00 19:00 Output Total 2000 ml Balance -2000 ml Output Urine Total 2000 ml # Bowel Movements 1 . Physical Exam CONSTITUTIONAL/GENERAL: This is an adequately nourished, middle aged male in no acute distress. TUBES/LINES/DRAINS: PIV 1 EYES: Pupils equal and round. No injection or drainage. ENT: Hearing grossly normal. Nose without bleeding or purulent drainage. CARDIOVASCULAR: Regular rate and rhythm without murmurs, gallops, or rubs. No JVD. Peripheral pulses symmetric. RESPIRATORY/CHEST: Breath sounds clear, diminished bilaterally. GASTROINTESTINAL: Abdomen soft, nontender to palpation, patient reports his abdomen has a a general tenderness. Active bowel sounds. GENITOURINARY: Voids. MUSCULOSKELETAL: Extremities without clubbing, cyanosis. BLE 2+ pitting edema. No mottling or clubbing. NEUROLOGICAL: Alert and awake. Oriented x 3. Follows commands. PSYCHIATRIC: No obvious anxiety/depression. No apparent hallucinations or other psychotic thought process. . (Dinora Lock) Diagnostic Tests Laboratory Laboratory Tests Test 07/28/17 15:05 07/29/17 08:22 Blood Urea Nitrogen 13 MG/DL (7-18) Creatinine 1.64 MG/DL (0.60-1.30) Random Glucose 82 MG/DL (74-106) Total Protein 7.8 GM/DL (6.4-8.2) Albumin 2.9 GM/DL (3.4-5.0) Calcium Level 7.8 MG/DL (8.5-10.1) Alkaline Phosphatase 109 U/L (45-117) Aspartate Amino Transf (AST/SGOT) 56 U/L (15-37) Alanine Aminotransferase (ALT/SGPT) 17 U/L (12-78) Total Bilirubin 1.2 MG/DL (0.2-1.0) Sodium Level 137 MEQ/L (136-145) Potassium Level 2.8 MEQ/L (3.5-5.1) Chloride Level 96 MEQ/L (98-107) Carbon Dioxide Level 30.7 MEQ/L (21.0-32.0) Anion Gap 10 MEQ/L (5-15) Estimat Glomerular Filtration Rate 45 ML/MIN (>89) Lipase 862 U/L (73-393) (Dinora Lock) Result Diagram: 07/25/17 0930 07/28/17 1505 Procedures 06/30/17: EGD . (Dinora Lock) Assessment and Plan Disease Oriented Problem List: (1) Gastrointestinal bleed (2) Esophageal varices (3) Menendez esophagus (4) Jaundice (5) Gastritis (6) Tobacco abuse Symptom Scale: (1) Pain (2) Dyspnea (3) Encephalopathy Pertinent Non-Medical Issues Psychosocial:Patient is originally from [facility]. He moved to [place] approximately 20 years ago. 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 Patient is but has 4 adult children from this marriage. (Abbey Donnelly, Nikko and Sergio). Apparently he also has a 14-year- old daughter from a different relationship; she lives in [place]. Spiritual: Orthodox ariana Legal: None known. Ethical issues impacting care: No known ethical issues impacting care at this time . . Important Contacts Major ([facility]), son: [phone] Tea Calhoun, spouse/former spouse: [phone] Abbey, daughter [phone] Nikko, son, Sergio, son: [phone] . Prognosis Patient is a 51-year-old male with multiple comorbid conditions. He was admitted with suspected GI bleed, persistent ileus, liver cirrhosis/elevated LFTs, thrombocytopenia/coagulopathy and hepatic encephalopathy. Now being treated for pneumonia. He is not a candidate for liver transplant. He is at high risk for ongoing complications and decline. . Code Status: Full Code Plan * FULL CODE * Decision-making: Patient has waxing and waning neurological status. Suggest shared decision making with patient's son German Martin ([facility]). * GOALS: Aggressive. * Symptom management - encephalopathy: Resolved. No recommendations at this time. * Symptom management - dyspnea:Resolved. On room air. Duonebs 1 ampule q 2hr PRN for shortness of breath. No recommendations. * Symptom management- pain: Multifactorial, patient's abdominal pain is intermittent, now C/O generalized pain. Gabapentin 600mg TID and 900mg QHS. Patient reports improvement in pain following increase in QHS tramadol. No recommendations at this time. * Palliative care will continue to follow this patient throughout his hospitalization to establish trust, assist with symptom management and clarification of medical treatment goals. . (Dinora Lock) Attestation To help prompt me to consider important information that might be impacting today's encounter and assessment, information from prior notes written by myself or my colleagues may have been "brought forward" into today's note. My signature on this note, however, is an attestation that I personally performed the exam, history, and/or decision-making noted today, and, unless otherwise indicated, the interactions with patient, family, and staff as well as the review of records all occurred today. I also attest that the listed assessment and stated plan reflect my best clinical judgment today based on the combination of historical information, prior notes, and today's exam/ interactions. When time spent is documented, it refers only to time spent today by the signer, or if indicated, combined time spent today by collaborating physician/nurse practitioner. (Dinora Lock) Collaborating MD Comments Chart reviewed. Case discussed with palliative care FLUE BLOWER. Above note reviewed and I concur. . (Albert Garcia MD) Dinora Lock Jul 29, 2017 11:24 Albert Garica MD Jul 30, 2017 17:21
--- NOTE | 2017-07-29 11:24 | HHI.HCPN ---
Reason for visit a. To assist with evaluation and management of symptoms including: pain, encephalopathy, and dyspnea b. To assist medical decision maker(s) with: better understanding of current medical conditions; weighing benefits/burdens of medical treatment options; making medical treatment decisions. . (Dinora Lock) Subjective/Interval History Patient seen and examined today, no family at bedside, patient resting in bed. Awake, alert, and oriented x 3. Patient stated he still has persistent abdominal pain, however he describes the pain differently than previous abdominal pain. He describes the pain as an intermittent sharp pinch in his LUQ , lipase elevated yesterday at 862, recheck pending today. He endorses that his continues to have regular bowel movements, 6 BMs documented in the past 25 hours. Patient complains of persistent pain in BLE and edema, he states he feels the swelling in his legs has improved slightly. (Dinora Lock) Advance Directives Health Care Surrogate: Copy in medical record (Dinora Lock) Advance Directive Specifics Date completed: 07/13/17 . Health Care Surrogate(s): German Martin (son) [phone] Jeanine Salgado (former spouse) [phone] Documented care wishes: No known documented care wishes. . (Dinora Lock) Objective Vital Signs Date Time Temp Pulse Resp B/P (MAP) Pulse Ox O2 Delivery O2 Flow Rate FiO2 07/29/17 08:37 98.5 69 18 108/55 (72) 95 07/29/17 04:00 98.2 85 18 111/57 (75) 95 07/29/17 02:11 85 07/29/17 00:00 98.4 79 18 105/55 (72) 93 07/28/17 20:00 98.9 68 18 115/62 (79) 93 07/28/17 17:15 98.3 88 18 141/86 (104) 96 07/28/17 12:34 98.1 83 18 111/56 (74) 94 Intake & Output 07/29/17 07/29/17 07:00 19:00 Output Total 2000 ml Balance -2000 ml Output Urine Total 2000 ml # Bowel Movements 1 . Physical Exam CONSTITUTIONAL/GENERAL: This is an adequately nourished, middle aged male in no acute distress. TUBES/LINES/DRAINS: PIV 1 EYES: Pupils equal and round. No injection or drainage. ENT: Hearing grossly normal. Nose without bleeding or purulent drainage. CARDIOVASCULAR: Regular rate and rhythm without murmurs, gallops, or rubs. No JVD. Peripheral pulses symmetric. RESPIRATORY/CHEST: Breath sounds clear, diminished bilaterally. GASTROINTESTINAL: Abdomen soft, nontender to palpation, patient reports his abdomen has a a general tenderness. Active bowel sounds. GENITOURINARY: Voids. MUSCULOSKELETAL: Extremities without clubbing, cyanosis. BLE 2+ pitting edema. No mottling or clubbing. NEUROLOGICAL: Alert and awake. Oriented x 3. Follows commands. PSYCHIATRIC: No obvious anxiety/depression. No apparent hallucinations or other psychotic thought process. . (Dinora Lock) Diagnostic Tests Laboratory Laboratory Tests Test 07/28/17 15:05 07/29/17 08:22 Blood Urea Nitrogen 13 MG/DL (7-18) Creatinine 1.64 MG/DL (0.60-1.30) Random Glucose 82 MG/DL (74-106) Total Protein 7.8 GM/DL (6.4-8.2) Albumin 2.9 GM/DL (3.4-5.0) Calcium Level 7.8 MG/DL (8.5-10.1) Alkaline Phosphatase 109 U/L (45-117) Aspartate Amino Transf (AST/SGOT) 56 U/L (15-37) Alanine Aminotransferase (ALT/SGPT) 17 U/L (12-78) Total Bilirubin 1.2 MG/DL (0.2-1.0) Sodium Level 137 MEQ/L (136-145) Potassium Level 2.8 MEQ/L (3.5-5.1) Chloride Level 96 MEQ/L (98-107) Carbon Dioxide Level 30.7 MEQ/L (21.0-32.0) Anion Gap 10 MEQ/L (5-15) Estimat Glomerular Filtration Rate 45 ML/MIN (>89) Lipase 862 U/L (73-393) (Dinora Lock) Result Diagram: 07/25/17 0930 07/28/17 1505 Procedures 06/30/17: EGD . (Dinora Lock) Assessment and Plan Disease Oriented Problem List: (1) Gastrointestinal bleed (2) Esophageal varices (3) Menendez esophagus (4) Jaundice (5) Gastritis (6) Tobacco abuse Symptom Scale: (1) Pain (2) Dyspnea (3) Encephalopathy Pertinent Non-Medical Issues Psychosocial:Patient is originally from [facility]. He moved to [place] approximately 20 years ago. 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 Patient is but has 4 adult children from this marriage. (Abbey Donnelly, Nikko and Sergio). Apparently he also has a 14-year- old daughter from a different relationship; she lives in [place]. Spiritual: Mandaeism ariana Legal: None known. Ethical issues impacting care: No known ethical issues impacting care at this time . . Important Contacts Major ([facility]), son: [phone] Tea Calhoun, spouse/former spouse: [phone] Abbey, daughter [phone] Nikko, son, Sergio, son: [phone] . Prognosis Patient is a 51-year-old male with multiple comorbid conditions. He was admitted with suspected GI bleed, persistent ileus, liver cirrhosis/elevated LFTs, thrombocytopenia/coagulopathy and hepatic encephalopathy. Now being treated for pneumonia. He is not a candidate for liver transplant. He is at high risk for ongoing complications and decline. . Code Status: Full Code Plan * FULL CODE * Decision-making: Patient has waxing and waning neurological status. Suggest shared decision making with patient's son German Martin ([facility]). * GOALS: Aggressive. * Symptom management - encephalopathy: Resolved. No recommendations at this time. * Symptom management - dyspnea:Resolved. On room air. Duonebs 1 ampule q 2hr PRN for shortness of breath. No recommendations. * Symptom management- pain: Multifactorial, patient's abdominal pain is intermittent, now C/O generalized pain. Gabapentin 600mg TID and 900mg QHS. Patient reports improvement in pain following increase in QHS tramadol. No recommendations at this time. * Palliative care will continue to follow this patient throughout his hospitalization to establish trust, assist with symptom management and clarification of medical treatment goals. . (Dinora Lock) Attestation To help prompt me to consider important information that might be impacting today's encounter and assessment, information from prior notes written by myself or my colleagues may have been "brought forward" into today's note. My signature on this note, however, is an attestation that I personally performed the exam, history, and/or decision-making noted today, and, unless otherwise indicated, the interactions with patient, family, and staff as well as the review of records all occurred today. I also attest that the listed assessment and stated plan reflect my best clinical judgment today based on the combination of historical information, prior notes, and today's exam/ interactions. When time spent is documented, it refers only to time spent today by the signer, or if indicated, combined time spent today by collaborating physician/nurse practitioner. (Dinora Lock) Collaborating MD Comments Chart reviewed. Case discussed with palliative care CVIR TECH. Above note reviewed and I concur. . (Albert Garcia MD) Dinora Lock Jul 29, 2017 11:24 Albert Garcia MD Jul 30, 2017 17:21
[2017-07-29 11:41] LABS: ALBUMIN 2.6 GM/DL (3.4-5.0); CALCIUM 7.4 MG/DL (8.5-10.1); CALCIUM-PROTEIN CORRECTED 7.7 MG/DL (8.5-10.1); CREATININE 1.58 MG/DL (0.60-1.30); TOTAL BILIRUBIN ADULT 1.2 MG/DL (0.2-1.0); TOTAL PROTEIN 6.6 GM/DL (6.4-8.2)
[2017-07-29] MEDS: POTASSIUM CHLOR 10 MEQ PREMIX 100 ML IV SCH ×3 (13:30→18:54)
[2017-07-29 13:36] LABS: RPR SCREEN FOR REFLEX NON-REACTIVE (NON-REACTVE)
--- NOTE | 2017-07-29 17:08 | HHI.NPPN ---
Subjective History of Present Illness 51-year-old male with a past medical history of cirrhosis of the liver, bronchial asthma, depression, hyperlipidemia, pancreatitis, Menendez's esophagus, chronic abdominal pain, possible history of gastric ulcer and varices, questionable esophageal cancer who was admitted with abdominal pain and distension. I was called to see the patient because of elevated BUN and creatinine. Additional Remarks Patient is alert, no SOB, swelling in the legs improving. Review of Systems General Constitutional: Fatigue Respiratory Lungs: Wheeze Cardiovascular Cardiac: CORTES Gastrointestinal Gastrointestinal: Abdominal Pain Objective Data Data 07/29/17 07/30/17 19:00 07:00 Intake Total 100 ml Balance 100 ml IV Total 100 ml Vital Signs Date Time Temp Pulse Resp B/P (MAP) Pulse Ox O2 Delivery O2 Flow Rate FiO2 07/29/17 12:59 98.6 76 18 122/59 (80) 94 07/29/17 08:37 98.5 69 18 108/55 (72) 95 07/29/17 04:00 98.2 85 18 111/57 (75) 95 07/29/17 02:11 85 07/29/17 00:00 98.4 79 18 105/55 (72) 93 07/28/17 20:00 98.9 68 18 115/62 (79) 93 07/28/17 17:15 98.3 88 18 141/86 (104) 96 -: 07/25/17 0930 07/29/17 0822 Physical Exam General Appearance: No Acute Distress, Anxious Throat Throat Exam: Oral Mucosa [place] & Moist Neck Neck Exam: Neck Supple Pulmonary Resp Exam: Breath Sounds Equal, Rhonchi, Decreased Bases Cardiology CV Exam: Regular, Normal Sinus Rhythm Gastrointestinal/Abdomen GI Exam: Soft, Bowel Sounds Present, Distended Extremeties Extremities Exam: Moderate Edema, Pitting Edema Neurologic Neuro Exam: Alert, Awake, Oriented Assessment/Plan Assessment Summary: DON/Acute Renal Failure Problem List: (1) Acute kidney injury ICD Codes: N17.9 - Acute kidney failure, unspecified (2) Encephalopathy ICD Codes: G93.40 - Encephalopathy, unspecified (3) Anemia ICD Codes: D64.9 - Anemia, unspecified Status: Acute (4) Jaundice ICD Codes: R17 - Unspecified jaundice (5) Gastritis ICD Codes: K29.70 - Gastritis, unspecified, without bleeding Status: Acute (6) 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 Normal size kidneys and has Normal Na. in the urine. Urine Eosinophils is negative. Most likely has ATN causing DON. Has elevated Bilirubin. BP is stable, Follow the urine out put and BMP. Avoid Nephrotoxins. Encourage oral intake. Creatinine is now 1.5, K is 3.0, on replacement. Linette Guerra MD Jul 29, 2017 17:08
[2017-07-30] VITALS (7 sets, daily range): BP systolic 108–137; BP diastolic 55–75; PULSE 66–81; RESP 17–20; TEMP 98–98.9; O2SAT 94–96
[2017-07-30] MEDS: D5-NS + KCL 20 MEQ INJ 1,000 ML IV SCH (00:56)
[2017-07-30] MEDS: ACETAMINOPHEN 325 MG TAB PO PRN ×2 (03:15→18:34)
[2017-07-30] MEDS: BETHANECHOL CHL 25 MG TAB PO SCH ×3 (05:28→21:58)
[2017-07-30] MEDS: cloNIDine HCL 0.2 MG TAB PO SCH ×3 (05:28→13:16)
[2017-07-30 09:00] LABS: BICARBONATE 31.4 MEQ/L (21.0-32.0); CALCIUM 7.9 MG/DL (8.5-10.1); CREATININE 1.66 MG/DL (0.60-1.30)
[2017-07-30] MEDS: SODIUM CHLORIDE 0.9% FLUSH 10 ML FLUSH IV FLUSH SCH ×2 (09:00→22:17)
[2017-07-30] MEDS: POLYETHYLENE GLYCOL 17 GM PKG PO SCH (09:00)
[2017-07-30] MEDS: REMOVE OLD PATCH T-DERMAL SCH (09:00)
[2017-07-30] MEDS: METOCLOPRAMIDE HCL 10 MG TAB PO SCH ×4 (09:23→21:58)
[2017-07-30] MEDS: LACTULOSE SYRUP 20 GM/30 ML CUP PO SCH (09:23)
[2017-07-30] MEDS: DOCUSATE SODIUM 50 MG/SENNA 8.6 MG TAB PO SCH (09:23)
[2017-07-30] MEDS: POTASSIUM CHLORIDE 10 MEQ CAP PO SCH ×2 (09:24→22:14)
[2017-07-30] MEDS: THIAMINE HCL 100 MG TAB PO SCH (09:24)
[2017-07-30] MEDS: NICOTINE 14 MG/24 HR PATCH T-DERMAL SCH (09:24)
[2017-07-30] MEDS: PANTOPRAZOLE SOD 40 MG DELAYED RELEASE TAB PO SCH ×2 (09:24→21:58)
[2017-07-30] MEDS: PSYLLIUM FIBER SF/GF 6 GM POWD PKT PO SCH ×2 (09:24→21:59)
[2017-07-30] MEDS: BUMETANIDE 1 MG TAB PO SCH ×2 (09:24→21:58)
[2017-07-30] MEDS: RIFAXIMIN 550 MG TAB PO SCH ×2 (09:24→21:58)
[2017-07-30] MEDS: MULTIVITAMIN TAB PO SCH (09:24)
[2017-07-30] MEDS: GABAPENTIN 300 MG CAP PO SCH ×3 (09:27→21:58)
--- NOTE | 2017-07-30 09:49 | HHI.NPPN ---
Subjective History of Present Illness 51-year-old male with a past medical history of cirrhosis of the liver, bronchial asthma, depression, hyperlipidemia, pancreatitis, Menendez's esophagus, chronic abdominal pain, possible history of gastric ulcer and varices, questionable esophageal cancer who was admitted with abdominal pain and distension. I was called to see the patient because of elevated BUN and creatinine. Additional Remarks Patient is alert, no SOB, swelling in the legs improving, still has leg pain. Review of Systems General Constitutional: Fatigue Respiratory Lungs: Wheeze Cardiovascular Cardiac: CORTES Gastrointestinal Gastrointestinal: Abdominal Pain Objective Data Data 07/30/17 07/31/17 19:00 07:00 Intake Total 495 ml Output Total 475 ml Balance 20 ml Intake Oral 295 ml IV Total 200 ml Output Urine Total 475 ml Vital Signs Date Time Temp Pulse Resp B/P (MAP) Pulse Ox O2 Delivery O2 Flow Rate FiO2 07/30/17 08:17 98.2 66 20 114/57 (76) 94 07/30/17 05:22 98.3 81 17 137/75 (95) 94 07/30/17 02:25 70 07/30/17 00:48 98.9 68 17 112/57 (75) 96 07/29/17 20:13 98.2 77 17 114/60 (78) 96 07/29/17 17:54 81 07/29/17 17:35 98.3 72 18 105/58 (74) 97 07/29/17 12:59 98.6 76 18 122/59 (80) 94 -: 07/30/17 0635 Physical Exam General Appearance: No Acute Distress, Anxious Throat Throat Exam: Oral Mucosa [place] & Moist Neck Neck Exam: Neck Supple Pulmonary Resp Exam: Breath Sounds Equal, Rhonchi, Decreased Bases Cardiology CV Exam: Regular, Normal Sinus Rhythm Gastrointestinal/Abdomen GI Exam: Soft, Bowel Sounds Present, Distended Extremeties Extremities Exam: Moderate Edema, Pitting Edema Neurologic Neuro Exam: Alert, Awake, Oriented Assessment/Plan Assessment Summary: DON/Acute Renal Failure Problem List: (1) Acute kidney injury ICD Codes: N17.9 - Acute kidney failure, unspecified (2) Encephalopathy ICD Codes: G93.40 - Encephalopathy, unspecified (3) Anemia ICD Codes: D64.9 - Anemia, unspecified Status: Acute (4) Jaundice ICD Codes: R17 - Unspecified jaundice (5) Gastritis ICD Codes: K29.70 - Gastritis, unspecified, without bleeding Status: Acute (6) 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 Normal size kidneys and has Normal Na. in the urine. Urine Eosinophils is negative. Most likely has ATN causing DON. Has elevated Bilirubin. BP is stable, Follow the urine out put and BMP. Avoid Nephrotoxins. Encourage oral intake. Creatinine is stable, K is 3.0. On Kcl, PO and IV Bolus. D/C IVF. Linette Guerra MD Jul 30, 2017 09:49
[2017-07-30] MEDS ORDERED: POTASSIUM BICARBONATE 25 MEQ EFFERVESCENT TAB PO ONE (13:30)
--- NOTE | 2017-07-30 13:40 | HHI.PR ---
Subjective Remarks no nause aor vomiting no abdominal pain " just grumbling" having diarrhea- on laxatives Objective Vitals Vital Signs Date Time Temp Pulse Resp B/P (MAP) Pulse Ox O2 Delivery O2 Flow Rate FiO2 07/30/17 12:14 98.2 68 20 108/55 (72) 95 07/30/17 08:17 98.2 66 20 114/57 (76) 94 07/30/17 05:22 98.3 81 17 137/75 (95) 94 07/30/17 02:25 70 07/30/17 00:48 98.9 68 17 112/57 (75) 96 07/29/17 20:13 98.2 77 17 114/60 (78) 96 07/29/17 17:54 81 07/29/17 17:35 98.3 72 18 105/58 (74) 97 I/O 07/29/17 07/29/17 07/29/17 07/30/17 07/30/17 07/30/17 07:00 15:00 23:00 07:00 15:00 23:00 Intake Total 1400 ml 860 ml 695 ml Output Total 2000 ml 700 ml 2125 ml 475 ml Balance -2000 ml 700 ml -1265 ml 220 ml Intake Oral 1200 ml 860 ml 295 ml IV Total 200 ml 400 ml Output Urine Total 2000 ml 700 ml 2125 ml 475 ml # Bowel Movements 1 2 Result Diagram: 07/30/17 0635 Imaging Last Impressions Lower Extremity Ultrasound 07/25/17 0000 Signed Impressions: Service Date/Time: Tuesday, July 25, 2017 17:47 - CONCLUSION: Normal examination. Albert Walden MD Abdomen X-Ray 07/25/17 0000 Signed Impressions: Service Date/Time: Tuesday, July 25, 2017 09:35 - CONCLUSION: Nonspecific mildly distended small bowel. Some degree of ileus or obstruction can be considered. Nikko Mason MD Abdomen Ultrasound 07/25/17 0000 Signed Impressions: Service Date/Time: Tuesday, July 25, 2017 10:27 - CONCLUSION: Mild ascites. Nikko Mason MD Thoracic Spine MRI 07/22/17 0705 Signed Impressions: Service Date/Time: Saturday, July 22, 2017 12:06 - CONCLUSION: 1. Small bilateral pleural effusions. 2. Patent central canal. Caesar Shafer Jr., MD Lumbar Spine MRI 07/22/17704 Signed Impressions: Service Date/Time: Saturday, July 22, 2017 12:06 - CONCLUSION: 1. Mild degenerative disc disease at L2-L3. No spinal canal stenosis or neural foraminal stenosis is present. 2. Left upper quadrant varices. These were documented on prior CT from 06/29/4017 and are likely related to chronic liver disease/cirrhosis. Nikko Cote MD Cervical Spine MRI 07/22/17704 Signed Impressions: Service Date/Time: Saturday, July 22, 2017 12:06 - CONCLUSION: Degenerative disc disease at C5-C6 and C6-C7. However, no spinal canal stenosis or neural foraminal narrowing is present. Spinal cord demonstrates no abnormality. Nikko Cote MD Brain MRI 07/22/17704 Signed Impressions: Service Date/Time: Saturday, July 22, 2017 12:06 - CONCLUSION: Negative MRI of the brain for acute process. I do not see evidence for an ischemic event. Colten Nelson MD FACR Small Bowel X-Ray 07/10/17 0000 Signed Impressions: Service Date/Time: Monday, July 10, 2017 08:26 - CONCLUSION: 1. Diffuse small bowel dilatation and delayed small bowel transit time of approximately 5- 6 hours without focal transition point, intraluminal filling defect or gross mass. Findings are most consistent with moderate adynamic ileus. Bryson Downing MD Renal Ultrasound 07/10/17 0000 Signed Impressions: Service Date/Time: Monday, July 10, 2017 18:25 - CONCLUSION: 1. Unremarkable renal ultrasound. Mild ascites. Albert Walden MD Chest X-Ray 07/09/17 0600 Signed Impressions: Service Date/Time: July 06:10 - CONCLUSION: 1. Minimal basilar dependent density. Differential diagnosis includes atelectasis. Findings similar to prior exam. Albert Walden MD Chest CT 07/05/17 1635 Signed Impressions: Service Date/Time: Wednesday, July 05, 2017 18:11 - CONCLUSION: 1. Segmental consolidation with volume loss medial right lower lung. 2. Atelectasis or basilar consolidation left lower lung. 3. Mild amount of ascites. Caesar Ann MD Abdomen MRI 07/02/17 0000 Signed Impressions: Service Date/Time: June 16:34 - CONCLUSION: 1. Hepatomegaly and hepatic steatosis. No focal mass identified. 2. Moderate splenomegaly. 3. Small amount of ascites. 4. Small bilateral pleural effusions. Wilbert Howe MD Ankle X-Ray 07/01/17 0000 Signed Impressions: Service Date/Time: Saturday, July 01, 2017 10:22 - CONCLUSION: Soft tissue mass noted to be fluid filled on ultrasound 09/10/2012. Colten Nelson MD FACR Head CT 06/30/17 0000 Signed Impressions: Service Date/Time: Saturday, July 01, 2017 02:24 - CONCLUSION: 1. No acute intracranial abnormalities. Previous fixation left maxillary sinus. Albert Walden MD Cervical Spine CT 06/30/17 0000 Signed Impressions: Service Date/Time: Saturday, July 01, 2017 02:24 - CONCLUSION: Normal examination for a patient of this age. Albert Walden MD Abdomen/Pelvis CT 06/29/17 0000 Signed Impressions: Service Date/Time: Thursday, June 29, 2017 12:52 - CONCLUSION: 1. Hepatosplenomegaly and varices noted as above. 2. Atherosclerosis. 3. Abnormal diffuse heterogeneous appearance of the liver which may be related to either marked hepatic steatosis in an inhomogeneous fashion versus steatosis and underlying diffuse liver masses. An MRI of the abdomen with and without contrast may be helpful for further evaluation of this finding. Navjot Chirinos MD Objective Remarks awake and alert anicteric lungs- no rales, no wheezes regular rhythm abdomen- soft, good bowel sounds,no guarding, no tenderness, good bowel sounds, no rebound tenderness extremities + edema, no calf tenderness moves all extremities spontaneously, limited by edema needs assistance for ADLs Procedures 06/30/17 EGD A/P Problem List: (1) Esophageal varices ICD Code: I85.00 - Esophageal varices without bleeding (2) Gastrointestinal bleed ICD Code: K92.2 - Gastrointestinal hemorrhage, unspecified (3) GERD Status: Chronic (4) Alcohol use ICD Code: Z78.9 - Other specified health status Status: Acute (5) Tobacco abuse ICD Code: Z72.0 - Tobacco use Status: Chronic (6) Jaundice ICD Code: R17 - Unspecified jaundice (7) Gastritis ICD Code: K29.70 - Gastritis, unspecified, without bleeding Status: Acute (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 Continue physical therapy. Continue to monitor for continued bowel movements and improvement in GI symptoms. Ileus- resolved- now having loose stool Acute pancreatitis- lipase elevated 500s 07/28- lipase trending down - abdominal pain better, exam benign - hold laxatives- - now having diarrhea- stop Miralax and colace and Lactulose for now and monitor DON HYpokalemia- 2.7- 07/28 creatinine stabilizing K replace Bumex 2 mg po bid with KCL bid ff BMP hold laxatives give KCL 50 ,eq po x 1 BMP in am bilateral LE edema Continue Xifaxan + LE edema- doppler negative for DVT on Bumex per Nephrology GI Bleed Hepatic Encephalopathy Liver cirrhosis CBC shows no evidence of active bleed Etiology had been gastritis and duodenitis Continue Protonix bid minimal ascites on US 07/25 Generalized Weakness/Deconditioning continue PT Slow improvement No payor source for SNF Degree of weakness is greater than expected given patient's clinical presentation will not start NSAIds with DON Neurontin evening dose - helped a lot- continue to monitor and adjust ideally - needs SNF ETOH Withdrawal -Resolved Continue folic acid Continue thiamine Continue multivitamin DVT Prophylaxis SCDs (high bleed risk)- GIB-on presentation, high risk of bleeding, varices, thrombocytopenia from cirrhosis Discharge Planning To much weakness for safe discharge SNF not yet an option due to lack of payor source Kera Christensen MD Jul 30, 2017 13:40
[2017-07-30] MEDS: POTASSIUM CHLORIDE 25 MEQ EFFERVESCENT TAB PO PRN (14:49)
[2017-07-30] MEDS: MAGNESIUM SULFATE 1 GM PREMIX 100 ML IV SCH ×2 (17:23→18:34)
[2017-07-31] VITALS (7 sets, daily range): BP systolic 98–125; BP diastolic 52–72; PULSE 71–80; RESP 18–20; TEMP 97.5–99; O2SAT 91–96
[2017-07-31] MEDS: ACETAMINOPHEN 325 MG TAB PO PRN ×3 (01:52→21:55)
[2017-07-31] MEDS: BETHANECHOL CHL 25 MG TAB PO SCH ×3 (06:27→21:56)
[2017-07-31] MEDS: cloNIDine HCL 0.2 MG TAB PO SCH ×3 (06:31→21:42)
[2017-07-31] MEDS: MULTIVITAMIN TAB PO SCH (07:57)
[2017-07-31] MEDS: POTASSIUM CHLORIDE 10 MEQ CAP PO SCH ×2 (07:57→21:56)
[2017-07-31] MEDS: PANTOPRAZOLE SOD 40 MG DELAYED RELEASE TAB PO SCH ×2 (07:57→21:56)
[2017-07-31] MEDS: THIAMINE HCL 100 MG TAB PO SCH (07:58)
[2017-07-31] MEDS: RIFAXIMIN 550 MG TAB PO SCH ×2 (07:58→21:54)
[2017-07-31] MEDS: METOCLOPRAMIDE HCL 10 MG TAB PO SCH ×4 (07:58→21:56)
[2017-07-31] MEDS: BUMETANIDE 1 MG TAB PO SCH ×2 (07:58→21:54)
[2017-07-31] MEDS: SODIUM CHLORIDE 0.9% FLUSH 10 ML FLUSH IV FLUSH SCH ×2 (07:58→21:56)
[2017-07-31] MEDS: NICOTINE 14 MG/24 HR PATCH T-DERMAL SCH (07:59)
[2017-07-31] MEDS: REMOVE OLD PATCH T-DERMAL SCH (07:59)
[2017-07-31] MEDS: PSYLLIUM FIBER SF/GF 6 GM POWD PKT PO SCH ×2 (07:59→21:52)
[2017-07-31] MEDS: GABAPENTIN 300 MG CAP PO SCH ×3 (08:03→21:57)
--- NOTE | 2017-07-31 10:02 | HHI.PR ---
Subjective Remarks no complains getting around with a wheelchair, no urinary symptoms Objective Vitals Vital Signs Date Time Temp Pulse Resp B/P (MAP) Pulse Ox O2 Delivery O2 Flow Rate FiO2 07/31/17 08:28 98.3 72 20 115/72 (86) 94 07/31/17 04:00 98.0 75 18 115/57 (76) 91 07/31/17 03:05 78 07/31/17 00:00 98.1 78 18 125/58 (80) 95 07/30/17 20:00 98.7 74 18 110/58 (75) 94 07/30/17 16:09 98.0 80 20 129/67 (87) 95 07/30/17 12:14 98.2 68 20 108/55 (72) 95 I/O 07/30/17 07/30/17 07/30/17 07/31/17 07/31/17 07/31/17 07:00 15:00 23:00 07:00 15:00 23:00 Intake Total 860 ml 935 ml 560 ml Output Total 2125 ml 475 ml 2250 ml Balance -1265 ml 460 ml 560 ml -2250 ml Intake Oral 860 ml 535 ml 360 ml IV Total 400 ml 200 ml Output Urine Total 2125 ml 475 ml 2250 ml # Voids 2 # Bowel Movements 1 Result Diagram: 07/30/17634 Imaging Last Impressions Lower Extremity Ultrasound 07/25/17 Signed Impressions: Service Date/Time: Tuesday, July 25, 2017 17:47 - CONCLUSION: Normal examination. Albert Walden MD Abdomen X-Ray 07/25/17 Signed Impressions: Service Date/Time: Tuesday, July 25, 2017 09:35 - CONCLUSION: Nonspecific mildly distended small bowel. Some degree of ileus or obstruction can be considered. Nikko Mason MD Abdomen Ultrasound 07/25/17 Signed Impressions: Service Date/Time: Tuesday, July 25, 2017 10:27 - CONCLUSION: Mild ascites. Nikko Mason MD Thoracic Spine MRI 07/22/17704 Signed Impressions: Service Date/Time: Saturday, July 22, 2017 12:06 - CONCLUSION: 1. Small bilateral pleural effusions. 2. Patent central canal. Caesar Shafer Jr., MD Lumbar Spine MRI 07/22/17704 Signed Impressions: Service Date/Time: Saturday, July 22, 2017 12:06 - CONCLUSION: 1. Mild degenerative disc disease at L2-L3. No spinal canal stenosis or neural foraminal stenosis is present. 2. Left upper quadrant varices. These were documented on prior CT from 06/29/4017 and are likely related to chronic liver disease/cirrhosis. Nikko Cote MD Cervical Spine MRI 07/22/17704 Signed Impressions: Service Date/Time: Saturday, July 22, 2017 12:06 - CONCLUSION: Degenerative disc disease at C5-C6 and C6-C7. However, no spinal canal stenosis or neural foraminal narrowing is present. Spinal cord demonstrates no abnormality. Nikko Cote MD Brain MRI 07/22/17704 Signed Impressions: Service Date/Time: Saturday, July 22, 2017 12:06 - CONCLUSION: Negative MRI of the brain for acute process. I do not see evidence for an ischemic event. Colten Nelson MD FACR Small Bowel X-Ray 07/10/17 0000 Signed Impressions: Service Date/Time: Monday, July 10, 2017 08:26 - CONCLUSION: 1. Diffuse small bowel dilatation and delayed small bowel transit time of approximately 5- 6 hours without focal transition point, intraluminal filling defect or gross mass. Findings are most consistent with moderate adynamic ileus. Bryson Downing MD Renal Ultrasound 07/10/17 0000 Signed Impressions: Service Date/Time: Monday, July 10, 2017 18:25 - CONCLUSION: 1. Unremarkable renal ultrasound. Mild ascites. Albert Walden MD Chest X-Ray 07/09/17 0600 Signed Impressions: Service Date/Time: July 06:10 - CONCLUSION: 1. Minimal basilar dependent density. Differential diagnosis includes atelectasis. Findings similar to prior exam. Albert Walden MD Chest CT 07/05/17 1635 Signed Impressions: Service Date/Time: Wednesday, July 05, 2017 18:11 - CONCLUSION: 1. Segmental consolidation with volume loss medial right lower lung. 2. Atelectasis or basilar consolidation left lower lung. 3. Mild amount of ascites. Caesar Ann MD Abdomen MRI 07/02/17 0000 Signed Impressions: Service Date/Time: June 16:34 - CONCLUSION: 1. Hepatomegaly and hepatic steatosis. No focal mass identified. 2. Moderate splenomegaly. 3. Small amount of ascites. 4. Small bilateral pleural effusions. Wilbert Howe MD Ankle X-Ray 07/01/17 0000 Signed Impressions: Service Date/Time: Saturday, July 01, 2017 10:22 - CONCLUSION: Soft tissue mass noted to be fluid filled on ultrasound 09/10/2012. Colten Nelson MD FACR Head CT 06/30/17 0000 Signed Impressions: Service Date/Time: Saturday, July 01, 2017 02:24 - CONCLUSION: 1. No acute intracranial abnormalities. Previous fixation left maxillary sinus. Albert Walden MD Cervical Spine CT 06/30/17 0000 Signed Impressions: Service Date/Time: Saturday, July 01, 2017 02:24 - CONCLUSION: Normal examination for a patient of this age. Albert Walden MD Abdomen/Pelvis CT 06/29/17 0000 Signed Impressions: Service Date/Time: Thursday, June 29, 2017 12:52 - CONCLUSION: 1. Hepatosplenomegaly and varices noted as above. 2. Atherosclerosis. 3. Abnormal diffuse heterogeneous appearance of the liver which may be related to either marked hepatic steatosis in an inhomogeneous fashion versus steatosis and underlying diffuse liver masses. An MRI of the abdomen with and without contrast may be helpful for further evaluation of this finding. Navjot Chirinos MD Objective Remarks awake and alert anicteric lungs- no rales, no wheezes regular rhythm abdomen- soft, good bowel sounds,no guarding, no tenderness, good bowel sounds, no rebound tenderness extremities + edema, no calf tenderness moves all extremities spontaneously, limited by edema needs assistance for ADLs Procedures 06/30/17 EGD A/P Problem List: (1) Esophageal varices ICD Code: I85.00 - Esophageal varices without bleeding (2) Gastrointestinal bleed ICD Code: K92.2 - Gastrointestinal hemorrhage, unspecified (3) GERD Status: Chronic (4) Alcohol use ICD Code: Z78.9 - Other specified health status Status: Acute (5) Tobacco abuse ICD Code: Z72.0 - Tobacco use Status: Chronic (6) Jaundice ICD Code: R17 - Unspecified jaundice (7) Gastritis ICD Code: K29.70 - Gastritis, unspecified, without bleeding Status: Acute (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 Continue physical therapy. Continue to monitor for continued bowel movements and improvement in GI symptoms. Ileus- resolved- now having loose stool- improved Acute pancreatitis- lipase elevated 500s 07/28- lipase trending down - abdominal pain better, exam benign - - due to loose stools- DON HYpokalemia- 2.7- 07/28 creatinine stabilizing K replace Bumex 2 mg po bid with KCL bid ff BMP hold laxatives give KCL 50 ,eq po x 1 BMP pending bilateral LE edema Continue Xifaxan + LE edema- doppler negative for DVT on Bumex per Nephrology GI Bleed Hepatic Encephalopathy Liver cirrhosis CBC shows no evidence of active bleed Etiology had been gastritis and duodenitis Continue Protonix bid minimal ascites on US 07/25 Generalized Weakness/Deconditioning continue PT Slow improvement No payor source for SNF Degree of weakness is greater than expected given patient's clinical presentation will not start NSAIds with DON Neurontin evening dose - helped a lot- continue to monitor and adjust ideally - needs SNF ETOH Withdrawal -Resolved Continue folic acid Continue thiamine Continue multivitamin DVT Prophylaxis SCDs (high bleed risk)- GIB-on presentation, high risk of bleeding, varices, thrombocytopenia from cirrhosis patient getting around and trying Discharge Planning To much weakness for safe discharge SNF not yet an option due to lack of payor source Kera Christensen MD Jul 31, 2017 10:02
[2017-07-31 10:05] LABS: BICARBONATE 30.6 MEQ/L (21.0-32.0); CALCIUM 8.2 MG/DL (8.5-10.1); CREATININE 1.55 MG/DL (0.60-1.30); MAGNESIUM 1.8 MG/DL (1.5-2.5)
--- NOTE | 2017-07-31 11:51 | HHI.NPPN ---
Subjective History of Present Illness 51-year-old male with a past medical history of cirrhosis of the liver, bronchial asthma, depression, hyperlipidemia, pancreatitis, Menendez's esophagus, chronic abdominal pain, possible history of gastric ulcer and varices, questionable esophageal cancer who was admitted with abdominal pain and distension. I was called to see the patient because of elevated BUN and creatinine. Additional Remarks Patient is alert, no SOB, swelling in the legs improving, no SOB. Review of Systems General Constitutional: Fatigue Respiratory Lungs: Wheeze Cardiovascular Cardiac: CORTES Gastrointestinal Gastrointestinal: Abdominal Pain Objective Data Data Vital Signs Date Time Temp Pulse Resp B/P (MAP) Pulse Ox O2 Delivery O2 Flow Rate FiO2 07/31/17 08:28 98.3 72 20 115/72 (86) 94 07/31/17 04:00 98.0 75 18 115/57 (76) 91 07/31/17 03:05 78 07/31/17 00:00 98.1 78 18 125/58 (80) 95 07/30/17 20:00 98.7 74 18 110/58 (75) 94 07/30/17 16:09 98.0 80 20 129/67 (87) 95 07/30/17 12:14 98.2 68 20 108/55 (72) 95 -: 07/31/17 0740 Physical Exam General Appearance: No Acute Distress, Anxious Throat Throat Exam: Oral Mucosa [place] & Moist Neck Neck Exam: Neck Supple Pulmonary Resp Exam: Breath Sounds Equal, Rhonchi, Decreased Bases Cardiology CV Exam: Regular, Normal Sinus Rhythm Gastrointestinal/Abdomen GI Exam: Soft, Bowel Sounds Present, Distended Extremeties Extremities Exam: Moderate Edema, Pitting Edema Neurologic Neuro Exam: Alert, Awake, Oriented Assessment/Plan Assessment Summary: DON/Acute Renal Failure Problem List: (1) Acute kidney injury ICD Codes: N17.9 - Acute kidney failure, unspecified (2) Encephalopathy ICD Codes: G93.40 - Encephalopathy, unspecified (3) Anemia ICD Codes: D64.9 - Anemia, unspecified Status: Acute (4) Jaundice ICD Codes: R17 - Unspecified jaundice (5) Gastritis ICD Codes: K29.70 - Gastritis, unspecified, without bleeding Status: Acute (6) 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 Normal size kidneys and has Normal Na. in the urine. Urine Eosinophils is negative. Most likely has ATN causing DON. Has elevated Bilirubin. BP is stable, Follow the urine out put and BMP. Avoid Nephrotoxins. Encourage oral intake. Creatinine is stable, avoid Nephrotoxins. Problem Qualifiers (1) Anemia: Qualified Codes: D64.9 - Anemia, unspecified (2) Gastritis: (3) Menendez esophagus: Qualified Codes: K22.70 - Menendez's esophagus without dysplasia Linette Guerra MD Jul 31, 2017 11:51
[2017-08-01] VITALS (8 sets, daily range): BP systolic 91–108; BP diastolic 52–61; PULSE 67–73; RESP 18–20; TEMP 98–99; O2SAT 92–96
[2017-08-01] MEDS: cloNIDine HCL 0.2 MG TAB PO SCH ×3 (05:21→22:00)
[2017-08-01] MEDS: BETHANECHOL CHL 25 MG TAB PO SCH ×3 (06:16→23:25)
[2017-08-01] MEDS: ACETAMINOPHEN 325 MG TAB PO PRN ×2 (06:17→12:28)
[2017-08-01] MEDS ORDERED: BENCH (07:37)
[2017-08-01] MEDS ORDERED: COMMODE 3-IN-11 MIS (07:38)
[2017-08-01] MEDS: PSYLLIUM FIBER SF/GF 6 GM POWD PKT PO SCH ×2 (08:36→21:00)
[2017-08-01] MEDS: PANTOPRAZOLE SOD 40 MG DELAYED RELEASE TAB PO SCH ×2 (08:36→23:24)
[2017-08-01] MEDS: THIAMINE HCL 100 MG TAB PO SCH (08:37)
[2017-08-01] MEDS: RIFAXIMIN 550 MG TAB PO SCH ×2 (08:37→23:26)
[2017-08-01] MEDS: METOCLOPRAMIDE HCL 10 MG TAB PO SCH ×4 (08:37→23:25)
[2017-08-01] MEDS: MULTIVITAMIN TAB PO SCH (08:37)
[2017-08-01] MEDS: POTASSIUM CHLORIDE 10 MEQ CAP PO SCH (08:37)
[2017-08-01] MEDS: BUMETANIDE 1 MG TAB PO SCH ×2 (08:38→23:25)
[2017-08-01] MEDS: NICOTINE 14 MG/24 HR PATCH T-DERMAL SCH (08:38)
[2017-08-01] MEDS: REMOVE OLD PATCH T-DERMAL SCH (08:38)
[2017-08-01] MEDS: SODIUM CHLORIDE 0.9% FLUSH 10 ML FLUSH IV FLUSH SCH ×2 (08:39→21:00)
[2017-08-01] MEDS: GABAPENTIN 300 MG CAP PO SCH ×3 (08:43→23:25)
--- NOTE | 2017-08-01 13:08 | HHI.PR ---
Subjective Remarks voiding well complains of LE pain- chronic- " heavy no diarrhea no abdominal pain Objective Vitals Vital Signs Date Time Temp Pulse Resp B/P (MAP) Pulse Ox O2 Delivery O2 Flow Rate FiO2 08/01/17 12:30 98.4 67 20 106/58 (74) 94 08/01/17 08:16 98.2 72 20 101/55 (70) 94 08/01/17 04:24 98.9 70 20 103/59 (74) 92 08/01/17 00:33 73 08/01/17 00:14 99.0 73 20 93/54 (67) 93 07/31/17 23:15 18 07/31/17 20:40 99.0 73 20 98/52 (67) 93 07/31/17 16:13 97.5 71 18 108/53 (71) 96 I/O 07/31/17 07/31/17 07/31/17 08/01/17 08/01/17 08/01/17 07:00 15:00 23:00 07:00 15:00 23:00 Intake Total 600 ml Output Total 2250 ml 1500 ml 700 ml 1400 ml 300 ml Balance -2250 ml -900 ml -700 ml -1400 ml -300 ml Intake Oral 600 ml Output Urine Total 2250 ml 1500 ml 700 ml 1400 ml 300 ml # Bowel Movements 0 Result Diagram: 07/31/1740 Imaging Last Impressions Lower Extremity Ultrasound 07/25/17 0000 Signed Impressions: Service Date/Time: Tuesday, July 25, 2017 17:47 - CONCLUSION: Normal examination. Albert Walden MD Abdomen X-Ray 07/25/17 0000 Signed Impressions: Service Date/Time: Tuesday, July 25, 2017 09:35 - CONCLUSION: Nonspecific mildly distended small bowel. Some degree of ileus or obstruction can be considered. Nikko Mason MD Abdomen Ultrasound 07/25/17 Signed Impressions: Service Date/Time: Tuesday, July 25, 2017 10:27 - CONCLUSION: Mild ascites. Nikko Mason MD Thoracic Spine MRI 07/22/17704 Signed Impressions: Service Date/Time: Saturday, July 22, 2017 12:06 - CONCLUSION: 1. Small bilateral pleural effusions. 2. Patent central canal. Caesar Shafer Jr., MD Lumbar Spine MRI 07/22/17704 Signed Impressions: Service Date/Time: Saturday, July 22, 2017 12:06 - CONCLUSION: 1. Mild degenerative disc disease at L2-L3. No spinal canal stenosis or neural foraminal stenosis is present. 2. Left upper quadrant varices. These were documented on prior CT from 06/29/4017 and are likely related to chronic liver disease/cirrhosis. Nikko Cote MD Cervical Spine MRI 07/22/17704 Signed Impressions: Service Date/Time: Saturday, July 22, 2017 12:06 - CONCLUSION: Degenerative disc disease at C5-C6 and C6-C7. However, no spinal canal stenosis or neural foraminal narrowing is present. Spinal cord demonstrates no abnormality. Nikko Cote MD Brain MRI 07/22/17704 Signed Impressions: Service Date/Time: Saturday, July 22, 2017 12:06 - CONCLUSION: Negative MRI of the brain for acute process. I do not see evidence for an ischemic event. Colten Nelson MD FACR Small Bowel X-Ray 07/10/17 0000 Signed Impressions: Service Date/Time: Monday, July 10, 2017 08:26 - CONCLUSION: 1. Diffuse small bowel dilatation and delayed small bowel transit time of approximately 5- 6 hours without focal transition point, intraluminal filling defect or gross mass. Findings are most consistent with moderate adynamic ileus. Bryson Downing MD Renal Ultrasound 07/10/17 0000 Signed Impressions: Service Date/Time: Monday, July 10, 2017 18:25 - CONCLUSION: 1. Unremarkable renal ultrasound. Mild ascites. Albert Walden MD Chest X-Ray 07/09/17 0600 Signed Impressions: Service Date/Time: July 06:10 - CONCLUSION: 1. Minimal basilar dependent density. Differential diagnosis includes atelectasis. Findings similar to prior exam. Albert Walden MD Chest CT 07/05/17 1635 Signed Impressions: Service Date/Time: Wednesday, July 05, 2017 18:11 - CONCLUSION: 1. Segmental consolidation with volume loss medial right lower lung. 2. Atelectasis or basilar consolidation left lower lung. 3. Mild amount of ascites. Caesar Ann MD Abdomen MRI 07/02/17 0000 Signed Impressions: Service Date/Time: June 16:34 - CONCLUSION: 1. Hepatomegaly and hepatic steatosis. No focal mass identified. 2. Moderate splenomegaly. 3. Small amount of ascites. 4. Small bilateral pleural effusions. Wilbert Howe MD Ankle X-Ray 07/01/17 0000 Signed Impressions: Service Date/Time: Saturday, July 01, 2017 10:22 - CONCLUSION: Soft tissue mass noted to be fluid filled on ultrasound 09/10/2012. Colten Nelson MD FACR Head CT 06/30/17 0000 Signed Impressions: Service Date/Time: Saturday, July 01, 2017 02:24 - CONCLUSION: 1. No acute intracranial abnormalities. Previous fixation left maxillary sinus. Albert Walden MD Cervical Spine CT 06/30/17 0000 Signed Impressions: Service Date/Time: Saturday, July 01, 2017 02:24 - CONCLUSION: Normal examination for a patient of this age. Albert Walden MD Abdomen/Pelvis CT 06/29/17 0000 Signed Impressions: Service Date/Time: Thursday, June 29, 2017 12:52 - CONCLUSION: 1. Hepatosplenomegaly and varices noted as above. 2. Atherosclerosis. 3. Abnormal diffuse heterogeneous appearance of the liver which may be related to either marked hepatic steatosis in an inhomogeneous fashion versus steatosis and underlying diffuse liver masses. An MRI of the abdomen with and without contrast may be helpful for further evaluation of this finding. Navjot Chirinos MD Objective Remarks awake and alert anicteric lungs- no rales, no wheezes regular rhythm abdomen- soft, good bowel sounds,no guarding, no tenderness, good bowel sounds, no rebound tenderness extremities + edema, no calf tenderness moves all extremities spontaneously, limited by edema needs assistance for ADLs Procedures 06/30/17 EGD A/P Problem List: (1) Esophageal varices ICD Code: I85.00 - Esophageal varices without bleeding (2) Gastrointestinal bleed ICD Code: K92.2 - Gastrointestinal hemorrhage, unspecified (3) GERD Status: Chronic (4) Alcohol use ICD Code: Z78.9 - Other specified health status Status: Acute (5) Tobacco abuse ICD Code: Z72.0 - Tobacco use Status: Chronic (6) Jaundice ICD Code: R17 - Unspecified jaundice (7) Gastritis ICD Code: K29.70 - Gastritis, unspecified, without bleeding Status: Acute (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 Continue physical therapy. Continue to monitor for continued bowel movements and improvement in GI symptoms. Ileus- resolved- now having loose stool- improved Acute pancreatitis- lipase elevated 500s 07/28- lipase trending down - abdominal pain better, exam benign - - due to loose stools- DON HYpokalemia- replaced creatinine stabilizing BMP pending Bumex 2 mg po bid with KCL bid ff BMP hold laxatives bilateral LE edema Continue Xifaxan + LE edema- doppler negative for DVT on Bumex per Nephrology GI Bleed Hepatic Encephalopathy Liver cirrhosis CBC shows no evidence of active bleed Etiology had been gastritis and duodenitis Continue Protonix bid minimal ascites on US 07/25 Generalized Weakness/Deconditioning Pain continue PT Slow improvement No payor source for SNF Degree of weakness is greater than expected given patient's clinical presentation will not start NSAIds with DON Neurontin evening dose - helped a lot- continue to monitor and adjust ideally - needs SNF Tramadol prn for pain ETOH Withdrawal -Resolved Continue folic acid Continue thiamine Continue multivitamin DVT Prophylaxis SCDs (high bleed risk)- GIB-on presentation, high risk of bleeding, varices, thrombocytopenia from cirrhosis patient getting around and trying Discharge Planning To much weakness for safe discharge SNF not yet an option due to lack of payor source Kera Christensen MD Aug 01, 2017 13:08
[2017-08-01] MEDS: traMADol HCL 50 MG TAB PO PRN ×2 (15:15→23:26)
[2017-08-01 15:24] LABS: BICARBONATE 31.3 MEQ/L (21.0-32.0); CALCIUM 7.7 MG/DL (8.5-10.1); CREATININE 1.65 MG/DL (0.60-1.30); MAGNESIUM 1.5 MG/DL (1.5-2.5)
--- NOTE | 2017-08-01 15:28 | HHI.NPPN ---
Subjective History of Present Illness 51-year-old male with a past medical history of cirrhosis of the liver, bronchial asthma, depression, hyperlipidemia, pancreatitis, Menendez's esophagus, chronic abdominal pain, possible history of gastric ulcer and varices, questionable esophageal cancer who was admitted with abdominal pain and distension. I was called to see the patient because of elevated BUN and creatinine. Additional Remarks Patient is alert, no SOB, swelling in the legs improving, still has leg pain. Review of Systems General Constitutional: Fatigue Respiratory Lungs: Wheeze Cardiovascular Cardiac: CORTES Gastrointestinal Gastrointestinal: Abdominal Pain Objective Data Data 08/01/17 08/02/17 19:00 07:00 Output Total 300 ml Balance -300 ml Output Urine Total 300 ml Vital Signs Date Time Temp Pulse Resp B/P (MAP) Pulse Ox O2 Delivery O2 Flow Rate FiO2 08/01/17 12:30 98.4 67 20 106/58 (74) 94 08/01/17 08:16 98.2 72 20 101/55 (70) 94 08/01/17 04:24 98.9 70 20 103/59 (74) 92 08/01/17 00:33 73 08/01/17 00:14 99.0 73 20 93/54 (67) 93 07/31/17 23:15 18 07/31/17 20:40 99.0 73 20 98/52 (67) 93 07/31/17 16:13 97.5 71 18 108/53 (71) 96 -: 07/31/17 0740 Physical Exam General Appearance: No Acute Distress, Anxious Throat Throat Exam: Oral Mucosa [place] & Moist Neck Neck Exam: Neck Supple Pulmonary Resp Exam: Breath Sounds Equal, Rhonchi, Decreased Bases Cardiology CV Exam: Regular, Normal Sinus Rhythm Gastrointestinal/Abdomen GI Exam: Soft, Bowel Sounds Present, Distended Extremeties Extremities Exam: Moderate Edema, Pitting Edema Neurologic Neuro Exam: Alert, Awake, Oriented Assessment/Plan Assessment Summary: DON/Acute Renal Failure Problem List: (1) Acute kidney injury ICD Codes: N17.9 - Acute kidney failure, unspecified (2) Encephalopathy ICD Codes: G93.40 - Encephalopathy, unspecified (3) Anemia ICD Codes: D64.9 - Anemia, unspecified Status: Acute (4) Jaundice ICD Codes: R17 - Unspecified jaundice (5) Gastritis ICD Codes: K29.70 - Gastritis, unspecified, without bleeding Status: Acute (6) 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 Normal size kidneys and has Normal Na. in the urine. Urine Eosinophils is negative. Most likely has ATN causing DON. Has elevated Bilirubin. BP is stable, Follow the urine out put and BMP. Avoid Nephrotoxins. Dr. Guerra to follow Maddie éPrez MD Aug 01, 2017 15:28
[2017-08-01] MEDS ORDERED: POTASSIUM CHLORIDE 25 MEQ EFFERVESCENT TAB PO ONE (15:45)
[2017-08-01] MEDS ORDERED: POTASSIUM CHLOR 20 MEQ PREMIX 100 ML IV ONE (15:45)
[2017-08-01] MEDS ORDERED: MAGNESIUM OXIDE 400 MG TAB PO ONE (15:45)
[2017-08-01] MEDS: POTASSIUM CHLORIDE 20 MEQ CONTROLLED RELEASE TAB PO SCH (21:00)
[2017-08-01] MEDS: POTASSIUM CHLORIDE 25 MEQ EFFERVESCENT TAB PO PRN (23:26)
[2017-08-02] VITALS (10 sets, daily range): BP systolic 101–145; BP diastolic 50–88; PULSE 71–99; RESP 18–20; TEMP 97–98.6; O2SAT 92–98
[2017-08-02] MEDS: traMADol HCL 50 MG TAB PO PRN ×3 (05:50→21:25)
[2017-08-02] MEDS: BETHANECHOL CHL 25 MG TAB PO SCH ×3 (05:50→21:24)
[2017-08-02] MEDS: cloNIDine HCL 0.2 MG TAB PO SCH ×3 (05:51→21:24)
[2017-08-02 07:52] LABS: BICARBONATE 30.7 MEQ/L (21.0-32.0); CREATININE 1.49 MG/DL (0.60-1.30); MAGNESIUM 1.6 MG/DL (1.5-2.5)
[2017-08-02] MEDS: METOCLOPRAMIDE HCL 10 MG TAB PO SCH ×4 (09:51→21:24)
[2017-08-02] MEDS: BUMETANIDE 1 MG TAB PO SCH ×2 (09:51→21:24)
[2017-08-02] MEDS: MULTIVITAMIN TAB PO SCH (09:52)
[2017-08-02] MEDS: RIFAXIMIN 550 MG TAB PO SCH ×2 (09:52→21:24)
[2017-08-02] MEDS: THIAMINE HCL 100 MG TAB PO SCH (09:52)
[2017-08-02] MEDS: PANTOPRAZOLE SOD 40 MG DELAYED RELEASE TAB PO SCH ×2 (09:52→21:24)
[2017-08-02] MEDS: GABAPENTIN 300 MG CAP PO SCH ×3 (09:53→21:26)
[2017-08-02] MEDS: SODIUM CHLORIDE 0.9% FLUSH 10 ML FLUSH IV FLUSH SCH ×2 (09:53→21:26)
[2017-08-02] MEDS: NICOTINE 14 MG/24 HR PATCH T-DERMAL SCH (09:53)
[2017-08-02] MEDS: REMOVE OLD PATCH T-DERMAL SCH (09:53)
[2017-08-02] MEDS: PSYLLIUM FIBER SF/GF 6 GM POWD PKT PO SCH ×2 (09:53→21:24)
[2017-08-02] MEDS ORDERED: MAGNESIUM OXIDE 400 MG TAB PO ONE (10:30)
[2017-08-02] MEDS ORDERED: POTASSIUM BICARBONATE 25 MEQ EFFERVESCENT TAB PO ONE (10:30)
[2017-08-02] MEDS: POTASSIUM CHLORIDE 20 MEQ CONTROLLED RELEASE TAB PO SCH ×2 (12:12→21:23)
--- NOTE | 2017-08-02 17:02 | HHI.PR ---
Subjective Remarks no complains voiding well no diarrhea- formed stools Objective Vitals Vital Signs Date Time Temp Pulse Resp B/P (MAP) Pulse Ox O2 Delivery O2 Flow Rate FiO2 08/02/17 16:27 71 08/02/17 16:26 98.3 78 20 117/54 (75) 93 08/02/17 13:18 95 Nasal Cannula 2.00 08/02/17 12:00 98.2 73 20 111/61 (78) 95 08/02/17 08:39 98.6 99 20 101/50 (67) 92 08/02/17 07:13 18 08/02/17 04:30 97.4 90 18 118/58 (78) 98 08/02/17 01:49 78 08/02/17 00:00 97.0 86 18 145/61 (89) 94 08/01/17 20:00 98.2 71 18 91/52 (65) 93 08/01/17 17:35 71 I/O 08/01/17 08/01/17 08/01/17 08/02/17 08/02/17 08/02/17 07:00 15:00 23:00 07:00 15:00 23:00 Intake Total 1206 ml 960 ml Output Total 1400 ml 300 ml 2125 ml 1425 ml Balance -1400 ml -300 ml -2125 ml 1206 ml -465 ml Intake Oral 340 ml 960 ml IV Total 866 ml Output Urine Total 1400 ml 300 ml 2125 ml 1425 ml Result Diagram: 08/02/17 0615 Imaging Last Impressions Lower Extremity Ultrasound 07/25/17 0000 Signed Impressions: Service Date/Time: Tuesday, July 25, 2017 17:47 - CONCLUSION: Normal examination. Albert Walden MD Abdomen X-Ray 07/25/17 0000 Signed Impressions: Service Date/Time: Tuesday, July 25, 2017 09:35 - CONCLUSION: Nonspecific mildly distended small bowel. Some degree of ileus or obstruction can be considered. Nikko Mason MD Abdomen Ultrasound 07/25/17 0000 Signed Impressions: Service Date/Time: Tuesday, July 25, 2017 10:27 - CONCLUSION: Mild ascites. Nikko Mason MD Thoracic Spine MRI 07/22/17 0705 Signed Impressions: Service Date/Time: Saturday, July 22, 2017 12:06 - CONCLUSION: 1. Small bilateral pleural effusions. 2. Patent central canal. Caesar Shafer Jr., MD Lumbar Spine MRI 07/22/17704 Signed Impressions: Service Date/Time: Saturday, July 22, 2017 12:06 - CONCLUSION: 1. Mild degenerative disc disease at L2-L3. No spinal canal stenosis or neural foraminal stenosis is present. 2. Left upper quadrant varices. These were documented on prior CT from 06/29/4017 and are likely related to chronic liver disease/cirrhosis. Nikko Cote MD Cervical Spine MRI 07/22/17704 Signed Impressions: Service Date/Time: Saturday, July 22, 2017 12:06 - CONCLUSION: Degenerative disc disease at C5-C6 and C6-C7. However, no spinal canal stenosis or neural foraminal narrowing is present. Spinal cord demonstrates no abnormality. Nikko Cote MD Brain MRI 07/22/17704 Signed Impressions: Service Date/Time: Saturday, July 22, 2017 12:06 - CONCLUSION: Negative MRI of the brain for acute process. I do not see evidence for an ischemic event. Colten Nelson MD FACR Small Bowel X-Ray 07/10/17 0000 Signed Impressions: Service Date/Time: Monday, July 10, 2017 08:26 - CONCLUSION: 1. Diffuse small bowel dilatation and delayed small bowel transit time of approximately 5- 6 hours without focal transition point, intraluminal filling defect or gross mass. Findings are most consistent with moderate adynamic ileus. Bryson Downing MD Renal Ultrasound 07/10/17 0000 Signed Impressions: Service Date/Time: Monday, July 10, 2017 18:25 - CONCLUSION: 1. Unremarkable renal ultrasound. Mild ascites. Albert Walden MD Chest X-Ray 07/09/17 0600 Signed Impressions: Service Date/Time: July 06:10 - CONCLUSION: 1. Minimal basilar dependent density. Differential diagnosis includes atelectasis. Findings similar to prior exam. Albert Walden MD Chest CT 07/05/17 1635 Signed Impressions: Service Date/Time: Wednesday, July 05, 2017 18:11 - CONCLUSION: 1. Segmental consolidation with volume loss medial right lower lung. 2. Atelectasis or basilar consolidation left lower lung. 3. Mild amount of ascites. Caesar Ann MD Abdomen MRI 07/02/17 0000 Signed Impressions: Service Date/Time: June 16:34 - CONCLUSION: 1. Hepatomegaly and hepatic steatosis. No focal mass identified. 2. Moderate splenomegaly. 3. Small amount of ascites. 4. Small bilateral pleural effusions. Wilbert Howe MD Ankle X-Ray 07/01/17 0000 Signed Impressions: Service Date/Time: Saturday, July 01, 2017 10:22 - CONCLUSION: Soft tissue mass noted to be fluid filled on ultrasound 09/10/2012. Colten Nelson MD FACR Head CT 06/30/17 0000 Signed Impressions: Service Date/Time: Saturday, July 01, 2017 02:24 - CONCLUSION: 1. No acute intracranial abnormalities. Previous fixation left maxillary sinus. Albert Walden MD Cervical Spine CT 06/30/17 0000 Signed Impressions: Service Date/Time: Saturday, July 01, 2017 02:24 - CONCLUSION: Normal examination for a patient of this age. Albert Walden MD Abdomen/Pelvis CT 06/29/17 0000 Signed Impressions: Service Date/Time: Thursday, June 29, 2017 12:52 - CONCLUSION: 1. Hepatosplenomegaly and varices noted as above. 2. Atherosclerosis. 3. Abnormal diffuse heterogeneous appearance of the liver which may be related to either marked hepatic steatosis in an inhomogeneous fashion versus steatosis and underlying diffuse liver masses. An MRI of the abdomen with and without contrast may be helpful for further evaluation of this finding. Navjot Chirinos MD Objective Remarks awake and alert anicteric lungs- no rales, no wheezes regular rhythm abdomen- soft, good bowel sounds,no guarding, no tenderness, good bowel sounds, no rebound tenderness extremities + edema, no calf tenderness moves all extremities spontaneously, limited by edema Procedures 06/30/17 EGD A/P Problem List: (1) Esophageal varices ICD Code: I85.00 - Esophageal varices without bleeding (2) Gastrointestinal bleed ICD Code: K92.2 - Gastrointestinal hemorrhage, unspecified (3) GERD Status: Chronic (4) Alcohol use ICD Code: Z78.9 - Other specified health status Status: Acute (5) Tobacco abuse ICD Code: Z72.0 - Tobacco use Status: Chronic (6) Jaundice ICD Code: R17 - Unspecified jaundice (7) Gastritis ICD Code: K29.70 - Gastritis, unspecified, without bleeding Status: Acute (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 Continue physical therapy. Continue to monitor for continued bowel movements and improvement in GI symptoms. Ileus- resolved- Acute pancreatitis- lipase elevated 500s 07/28- lipase trending down- clinically improved - abdominal pain better, exam benign DON HYpokalemia- creatinine stabilizing Bumex 2 mg po bid with KCL bid KCL 40 meq po bid. give extra dose today hold laxatives bilateral LE edema- chronic Continue Xifaxan + LE edema- doppler negative for DVT on Bumex per Nephrology GI Bleed Hepatic Encephalopathy Liver cirrhosis CBC shows no evidence of active bleed Etiology had been gastritis and duodenitis Continue Protonix bid minimal ascites on US 07/25 Generalized Weakness/Deconditioning Pain continue PT Slow improvement No payor source for SNF Degree of weakness is greater than expected given patient's clinical presentation will not start NSAIds with DON Neurontin evening dose - helped a lot- continue to monitor and adjust ideally - needs SNF Tramadol prn for pain ETOH Withdrawal -Resolved Continue folic acid Continue thiamine Continue multivitamin DVT Prophylaxis SCDs (high bleed risk)- GIB-on presentation, high risk of bleeding, varices, thrombocytopenia from cirrhosis patient getting around and trying Discharge Planning To much weakness for safe discharge SNF not yet an option due to lack of payor source Kera Christensen MD Aug 02, 2017 17:02
[2017-08-03] VITALS (10 sets, daily range): BP systolic 101–117; BP diastolic 50–60; PULSE 67–78; RESP 16–18; TEMP 98.4–99.3; O2SAT 94–95
[2017-08-03] MEDS: cloNIDine HCL 0.2 MG TAB PO SCH (06:00)
[2017-08-03] MEDS: BETHANECHOL CHL 25 MG TAB PO SCH ×3 (06:00→20:41)
[2017-08-03] MEDS: traMADol HCL 50 MG TAB PO PRN ×3 (06:45→20:39)
--- NOTE | 2017-08-03 08:18 | HHI.PR ---
Subjective Remarks lot of edema ble Objective Vital Signs Date Time Temp Pulse Resp B/P (MAP) Pulse Ox O2 Delivery O2 Flow Rate FiO2 08/03/17 05:49 98.4 73 18 107/50 (69) 94 08/03/17 01:39 67 08/03/17 00:00 98.7 76 18 101/56 (71) 95 08/02/17 22:25 18 08/02/17 20:42 97.8 76 18 119/88 (98) 98 08/02/17 17:58 93 Nasal Cannula 2.00 08/02/17 16:27 71 08/02/17 16:26 98.3 78 20 117/54 (75) 93 08/02/17 13:18 95 Nasal Cannula 2.00 08/02/17 12:00 98.2 73 20 111/61 (78) 95 08/02/17 08:39 98.6 99 20 101/50 (67) 92 I/O 08/02/17 08/02/17 08/02/17 08/03/17 08/03/17 08/03/17 07:00 15:00 23:00 07:00 15:00 23:00 Intake Total 1206 ml 960 ml Output Total 1425 ml 2000 ml Balance 1206 ml -465 ml -2000 ml Intake Oral 340 ml 960 ml IV Total 866 ml Output Urine Total 1425 ml 2000 ml Result Diagram: 08/02/17 0615 Objective Remarks awake alert ta and gastroc move well but some loss of fine motor control there edema and some redness lower legs Assessment and Plan Assessment and Plan imp i dw PT gait getting better mri brain and cord neg standing bp ok pain inc neurontin i would add mobic but creat up a little so defer to med team crp rf neg oob to chair most of day plz dvt prophylaxis? defer to med team 07/29/17 walking a lot better on tid neurontin we could push this dose up to 1200 tid if it is felt by med team that the neurontin is not the cause of ble edema will need rehab keep off narcotics asking for mm relaxers but no spasms or cramps unlikley to help check rpr 08/03/17 motor [place] and gait better his rpr neg lot of edema ?teds some fine motor degredation feet but overall better needs rehab edema could be gabapentin Bharath Gudino MD Aug 03, 2017 08:18
[2017-08-03] MEDS: SODIUM CHLORIDE 0.9% FLUSH 10 ML FLUSH IV FLUSH SCH ×2 (09:00→20:43)
[2017-08-03] MEDS: POTASSIUM CHLORIDE 20 MEQ CONTROLLED RELEASE TAB PO SCH ×2 (09:00→21:04)
[2017-08-03] MEDS: REMOVE OLD PATCH T-DERMAL SCH (09:00)
[2017-08-03 09:51] LABS: BICARBONATE 29.7 MEQ/L (21.0-32.0); CALCIUM 7.8 MG/DL (8.5-10.1); CREATININE 1.46 MG/DL (0.60-1.30); MAGNESIUM 1.6 MG/DL (1.5-2.5)
[2017-08-03] MEDS: NICOTINE 14 MG/24 HR PATCH T-DERMAL SCH (09:54)
[2017-08-03] MEDS: THIAMINE HCL 100 MG TAB PO SCH (09:56)
[2017-08-03] MEDS: RIFAXIMIN 550 MG TAB PO SCH ×2 (09:56→20:41)
[2017-08-03] MEDS: METOCLOPRAMIDE HCL 10 MG TAB PO SCH ×3 (09:56→20:40)
[2017-08-03] MEDS: PSYLLIUM FIBER SF/GF 6 GM POWD PKT PO SCH ×2 (09:57→20:44)
[2017-08-03] MEDS: BUMETANIDE 1 MG TAB PO SCH ×2 (09:57→20:40)
[2017-08-03] MEDS: MULTIVITAMIN TAB PO SCH (09:57)
[2017-08-03] MEDS: PANTOPRAZOLE SOD 40 MG DELAYED RELEASE TAB PO SCH ×2 (09:57→20:40)
[2017-08-03] MEDS ORDERED: POTASSIUM CHLORIDE 25 MEQ EFFERVESCENT TAB PO ONE (10:45)
--- NOTE | 2017-08-03 10:52 | HHI.PR ---
Subjective Remarks awake and alert states can't get around much- from leg swelling encourage to be more active- even when in chair- to do exercises- legs/knees Objective Vitals Vital Signs Date Time Temp Pulse Resp B/P (MAP) Pulse Ox O2 Delivery O2 Flow Rate FiO2 08/03/17 08:00 98.4 73 16 107/57 (74) 95 08/03/17 05:49 98.4 73 18 107/50 (69) 94 08/03/17 01:39 67 08/03/17 00:00 98.7 76 18 101/56 (71) 95 08/02/17 22:25 18 08/02/17 20:42 97.8 76 18 119/88 (98) 98 08/02/17 17:58 93 Nasal Cannula 2.00 08/02/17 16:27 71 08/02/17 16:26 98.3 78 20 117/54 (75) 93 08/02/17 13:18 95 Nasal Cannula 2.00 08/02/17 12:00 98.2 73 20 111/61 (78) 95 I/O 08/02/17 08/02/17 08/02/17 08/03/17 08/03/17 08/03/17 07:00 15:00 23:00 07:00 15:00 23:00 Intake Total 1206 ml 960 ml Output Total 1425 ml 2000 ml Balance 1206 ml -465 ml -2000 ml Intake Oral 340 ml 960 ml IV Total 866 ml Output Urine Total 1425 ml 2000 ml Result Diagram: 08/03/17 0830 Imaging Last Impressions Lower Extremity Ultrasound 07/25/17 0000 Signed Impressions: Service Date/Time: Tuesday, July 25, 2017 17:47 - CONCLUSION: Normal examination. Albert Walden MD Abdomen X-Ray 07/25/17 0000 Signed Impressions: Service Date/Time: Tuesday, July 25, 2017 09:35 - CONCLUSION: Nonspecific mildly distended small bowel. Some degree of ileus or obstruction can be considered. Nikko Mason MD Abdomen Ultrasound 07/25/17 0000 Signed Impressions: Service Date/Time: Tuesday, July 25, 2017 10:27 - CONCLUSION: Mild ascites. Nikko Mason MD Thoracic Spine MRI 07/22/17 0705 Signed Impressions: Service Date/Time: Saturday, July 22, 2017 12:06 - CONCLUSION: 1. Small bilateral pleural effusions. 2. Patent central canal. Caesar Shafer Jr., MD Lumbar Spine MRI 07/22/17704 Signed Impressions: Service Date/Time: Saturday, July 22, 2017 12:06 - CONCLUSION: 1. Mild degenerative disc disease at L2-L3. No spinal canal stenosis or neural foraminal stenosis is present. 2. Left upper quadrant varices. These were documented on prior CT from 06/29/4017 and are likely related to chronic liver disease/cirrhosis. Nikko Cote MD Cervical Spine MRI 07/22/17704 Signed Impressions: Service Date/Time: Saturday, July 22, 2017 12:06 - CONCLUSION: Degenerative disc disease at C5-C6 and C6-C7. However, no spinal canal stenosis or neural foraminal narrowing is present. Spinal cord demonstrates no abnormality. Nikko Cote MD Brain MRI 07/22/17704 Signed Impressions: Service Date/Time: Saturday, July 22, 2017 12:06 - CONCLUSION: Negative MRI of the brain for acute process. I do not see evidence for an ischemic event. Colten Nelson MD FACR Small Bowel X-Ray 07/10/17 0000 Signed Impressions: Service Date/Time: Monday, July 10, 2017 08:26 - CONCLUSION: 1. Diffuse small bowel dilatation and delayed small bowel transit time of approximately 5- 6 hours without focal transition point, intraluminal filling defect or gross mass. Findings are most consistent with moderate adynamic ileus. Bryson Downing MD Renal Ultrasound 07/10/17 0000 Signed Impressions: Service Date/Time: Monday, July 10, 2017 18:25 - CONCLUSION: 1. Unremarkable renal ultrasound. Mild ascites. Albert Walden MD Chest X-Ray 07/09/17 0600 Signed Impressions: Service Date/Time: July 06:10 - CONCLUSION: 1. Minimal basilar dependent density. Differential diagnosis includes atelectasis. Findings similar to prior exam. Albert Walden MD Chest CT 07/05/17 1635 Signed Impressions: Service Date/Time: Wednesday, July 05, 2017 18:11 - CONCLUSION: 1. Segmental consolidation with volume loss medial right lower lung. 2. Atelectasis or basilar consolidation left lower lung. 3. Mild amount of ascites. Caesar Ann MD Abdomen MRI 07/02/17 0000 Signed Impressions: Service Date/Time: June 16:34 - CONCLUSION: 1. Hepatomegaly and hepatic steatosis. No focal mass identified. 2. Moderate splenomegaly. 3. Small amount of ascites. 4. Small bilateral pleural effusions. Wilbert Howe MD Ankle X-Ray 07/01/17 0000 Signed Impressions: Service Date/Time: Saturday, July 01, 2017 10:22 - CONCLUSION: Soft tissue mass noted to be fluid filled on ultrasound 09/10/2012. Colten Nelson MD FACR Head CT 06/30/17 0000 Signed Impressions: Service Date/Time: Saturday, July 01, 2017 02:24 - CONCLUSION: 1. No acute intracranial abnormalities. Previous fixation left maxillary sinus. Albert Walden MD Cervical Spine CT 06/30/17 0000 Signed Impressions: Service Date/Time: Saturday, July 01, 2017 02:24 - CONCLUSION: Normal examination for a patient of this age. Albert Walden MD Abdomen/Pelvis CT 06/29/17 0000 Signed Impressions: Service Date/Time: Thursday, June 29, 2017 12:52 - CONCLUSION: 1. Hepatosplenomegaly and varices noted as above. 2. Atherosclerosis. 3. Abnormal diffuse heterogeneous appearance of the liver which may be related to either marked hepatic steatosis in an inhomogeneous fashion versus steatosis and underlying diffuse liver masses. An MRI of the abdomen with and without contrast may be helpful for further evaluation of this finding. Navjot Chirinos MD Objective Remarks awake and alert anicteric lungs- no rales, no wheezes regular rhythm abdomen- soft, good bowel sounds,no guarding, no tenderness, good bowel sounds, no rebound tenderness extremities + edema, no calf tenderness moves all extremities spontaneously, no deficits Procedures 06/30/17 EGD A/P Problem List: (1) Esophageal varices ICD Code: I85.00 - Esophageal varices without bleeding (2) Gastrointestinal bleed ICD Code: K92.2 - Gastrointestinal hemorrhage, unspecified (3) GERD Status: Chronic (4) Alcohol use ICD Code: Z78.9 - Other specified health status Status: Acute (5) Tobacco abuse ICD Code: Z72.0 - Tobacco use Status: Chronic (6) Jaundice ICD Code: R17 - Unspecified jaundice (7) Gastritis ICD Code: K29.70 - Gastritis, unspecified, without bleeding Status: Acute (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 Continue physical therapy. Continue to monitor for continued bowel movements and improvement in GI symptoms. Ileus- resolved- Acute pancreatitis- lipase elevated 500s 07/28- lipase trending down- clinically improved - abdominal pain better, exam benign DON HYpokalemia- K up to 3.4 creatinine stabilizing Bumex 2 mg po bid with KCL bid KCL 40 meq po bid. give extra dose today bilateral LE edema- chronic Continue Xifaxan + LE edema- doppler negative for DVT on Bumex per Nephrology GI Bleed Hepatic Encephalopathy Liver cirrhosis CBC shows no evidence of active bleed Etiology had been gastritis and duodenitis Continue Protonix bid minimal ascites on US 07/25 Generalized Weakness/Deconditioning Pain continue PT- d/w him to be more active as tolerable No payor source for SNF will not start NSAIds with DON Neurontin- dc by neurology ideally - needs SNF Tramadol prn for pain ETOH Withdrawal -Resolved Continue folic acid Continue thiamine Continue multivitamin DVT Prophylaxis SCDs (high bleed risk)- GIB-on presentation, high risk of bleeding, varices, thrombocytopenia from cirrhosis patient getting around and trying Discharge Planning To much weakness for safe discharge SNF not yet an option due to lack of payor source Kera Christensen MD Aug 03, 2017 10:52
--- NOTE | 2017-08-03 13:05 | HHI.HCPN ---
Reason for visit a. To assist with evaluation and management of symptoms including: pain, encephalopathy, and dyspnea b. To assist medical decision maker(s) with: better understanding of current medical conditions; weighing benefits/burdens of medical treatment options; making medical treatment decisions. . Subjective/Interval History Patient seen and examined today, chart and available laboratory data reviewed. Patient up to chair, finishing his lunch, awake, alert, and oriented x 3. Patient states his abdominal pain has resolved and he has not experienced any nausea recently. He complains of ongoing pain, weakness, and swelling in BLE. Neurology is following, gabapentin DC today due to questionable causative source of swelling. Advance Directives Health Care Surrogate: Copy in medical record Advance Directive Specifics Date completed: 07/13/17 . Health Care Surrogate(s): German Martin (son) [phone] Jeanine Salgado (former spouse) [phone] Documented care wishes: No known documented care wishes. . Objective Vital Signs Date Time Temp Pulse Resp B/P (MAP) Pulse Ox O2 Delivery O2 Flow Rate FiO2 08/03/17 08:00 98.4 73 16 107/57 (74) 95 08/03/17 05:49 98.4 73 18 107/50 (69) 94 08/03/17 01:39 67 08/03/17 00:00 98.7 76 18 101/56 (71) 95 08/02/17 22:25 18 08/02/17 20:42 97.8 76 18 119/88 (98) 98 08/02/17 17:58 93 Nasal Cannula 2.00 08/02/17 16:27 71 08/02/17 16:26 98.3 78 20 117/54 (75) 93 08/02/17 13:18 95 Nasal Cannula 2.00 Intake & Output 08/03/17 08/03/17 07:00 19:00 Output Total 2000 ml Balance -2000 ml Output Urine Total 2000 ml . Physical Exam CONSTITUTIONAL/GENERAL: This is an adequately nourished, middle aged male in no acute distress. TUBES/LINES/DRAINS: PIV 1 EYES: Pupils equal and round. No injection or drainage. ENT: Hearing grossly normal. Nose without bleeding or purulent drainage. CARDIOVASCULAR: Regular rate and rhythm without murmurs, gallops, or rubs. No JVD. Peripheral pulses symmetric. RESPIRATORY/CHEST: Breath sounds clear, diminished bilaterally. GASTROINTESTINAL: Abdomen soft, nontender to palpation, patient reports his abdomen has a a general tenderness. Active bowel sounds. GENITOURINARY: Voids. MUSCULOSKELETAL: Extremities without clubbing, cyanosis. BLE 2+ pitting edema. No mottling or clubbing. NEUROLOGICAL: Alert and awake. Oriented x 3. Follows commands. PSYCHIATRIC: No obvious anxiety/depression. No apparent hallucinations or other psychotic thought process. . Diagnostic Tests Laboratory Laboratory Tests Test 08/01/17 14:30 08/02/17 06:15 08/03/17 08:30 Blood Urea Nitrogen 8 MG/DL (7-18) 7 MG/DL (7-18) 6 MG/DL (7-18) Creatinine 1.65 MG/DL (0.60-1.30) 1.49 MG/DL (0.60-1.30) 1.46 MG/DL (0.60-1.30) Random Glucose 133 MG/DL (74-106) 108 MG/DL (74-106) 105 MG/DL (74-106) Calcium Level 7.7 MG/DL (8.5-10.1) 8.0 MG/DL (8.5-10.1) 7.8 MG/DL (8.5-10.1) Phosphorus Level 3.0 MG/DL (2.5-4.9) Magnesium Level 1.5 MG/DL (1.5-2.5) 1.6 MG/DL (1.5-2.5) 1.6 MG/DL (1.5-2.5) Sodium Level 135 MEQ/L (136-145) 136 MEQ/L (136-145) 134 MEQ/L (136-145) Potassium Level 2.9 MEQ/L (3.5-5.1) 3.0 MEQ/L (3.5-5.1) 3.4 MEQ/L (3.5-5.1) Chloride Level 96 MEQ/L (98-107) 97 MEQ/L (98-107) 96 MEQ/L (98-107) Carbon Dioxide Level 31.3 MEQ/L (21.0-32.0) 30.7 MEQ/L (21.0-32.0) 29.7 MEQ/L (21.0-32.0) Anion Gap 8 MEQ/L (5-15) 8 MEQ/L (5-15) 8 MEQ/L (5-15) Estimat Glomerular Filtration Rate 44 ML/MIN (>89) 50 ML/MIN (>89) 51 ML/MIN (>89) Result Diagram: 08/03/17 0830 Procedures 06/30/17: EGD . Assessment and Plan Disease Oriented Problem List: (1) Gastrointestinal bleed (2) Esophageal varices (3) Menendez esophagus (4) Jaundice (5) Gastritis (6) Tobacco abuse Symptom Scale: (1) Pain (2) Dyspnea (3) Encephalopathy Pertinent Non-Medical Issues Psychosocial:Patient is originally from [facility]. He moved to [place] approximately 20 years ago. 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 Patient is but has 4 adult children from this marriage. (Abbey Donnelly, Nikko and Sergio). Apparently he also has a 14-year- old daughter from a different relationship; she lives in [place]. Spiritual: Scientology ariana Legal: None known. Ethical issues impacting care: No known ethical issues impacting care at this time . . Important Contacts Major ([facility]), son: [phone] Tea Calhoun, spouse/former spouse: [phone] Abbey, daughter [phone] Nikko, son, Sergio, son: [phone] . Prognosis Patient is a 51-year-old male with multiple comorbid conditions. He was admitted with suspected GI bleed, persistent ileus, liver cirrhosis/elevated LFTs, thrombocytopenia/coagulopathy and hepatic encephalopathy. Now being treated for pneumonia. He is not a candidate for liver transplant. He is at high risk for ongoing complications and decline. . Code Status: Full Code Plan * FULL CODE * Decision-making: Patient has waxing and waning neurological status. Suggest shared decision making with patient's son German Martin ([facility]). * GOALS: Aggressive. No change in goals. * Symptom management - encephalopathy: Resolved. No recommendations at this time. * Symptom management - dyspnea:Resolved. On room air. Duonebs 1 ampule q 2hr PRN for shortness of breath. No recommendations. * Symptom management- pain: Multifactorial, patient's abdominal pain is intermittent, now C/O generalized pain. Gabapentin 600mg TID and 900mg QHS. Patient reports improvement in pain following increase in QHS tramadol. No recommendations at this time. * Palliative care will continue to follow this patient throughout his hospitalization to establish trust, assist with symptom management and clarification of medical treatment goals. . Attestation To help prompt me to consider important information that might be impacting today's encounter and assessment, information from prior notes written by myself or my colleagues may have been "brought forward" into today's note. My signature on this note, however, is an attestation that I personally performed the exam, history, and/or decision-making noted today, and, unless otherwise indicated, the interactions with patient, family, and staff as well as the review of records all occurred today. I also attest that the listed assessment and stated plan reflect my best clinical judgment today based on the combination of historical information, prior notes, and today's exam/ interactions. When time spent is documented, it refers only to time spent today by the signer, or if indicated, combined time spent today by collaborating physician/nurse practitioner. Dinora Lock Aug 03, 2017 13:05
--- NOTE | 2017-08-03 13:05 | HHI.HCPN ---
Reason for visit a. To assist with evaluation and management of symptoms including: pain, encephalopathy, and dyspnea b. To assist medical decision maker(s) with: better understanding of current medical conditions; weighing benefits/burdens of medical treatment options; making medical treatment decisions. . Subjective/Interval History Patient seen and examined today, chart and available laboratory data reviewed. Patient up to chair, finishing his lunch, awake, alert, and oriented x 3. Patient states his abdominal pain has resolved and he has not experienced any nausea recently. He complains of ongoing pain, weakness, and swelling in BLE. Neurology is following, gabapentin DC today due to questionable causative source of swelling. Advance Directives Health Care Surrogate: Copy in medical record Advance Directive Specifics Date completed: 07/13/17 . Health Care Surrogate(s): German Martin (son) [phone] Jeanine Salgado (former spouse) [phone] Documented care wishes: No known documented care wishes. . Objective Vital Signs Date Time Temp Pulse Resp B/P (MAP) Pulse Ox O2 Delivery O2 Flow Rate FiO2 08/03/17 08:00 98.4 73 16 107/57 (74) 95 08/03/17 05:49 98.4 73 18 107/50 (69) 94 08/03/17 01:39 67 08/03/17 00:00 98.7 76 18 101/56 (71) 95 08/02/17 22:25 18 08/02/17 20:42 97.8 76 18 119/88 (98) 98 08/02/17 17:58 93 Nasal Cannula 2.00 08/02/17 16:27 71 08/02/17 16:26 98.3 78 20 117/54 (75) 93 08/02/17 13:18 95 Nasal Cannula 2.00 Intake & Output 08/03/17 08/03/17 07:00 19:00 Output Total 2000 ml Balance -2000 ml Output Urine Total 2000 ml . Physical Exam CONSTITUTIONAL/GENERAL: This is an adequately nourished, middle aged male in no acute distress. TUBES/LINES/DRAINS: PIV 1 EYES: Pupils equal and round. No injection or drainage. ENT: Hearing grossly normal. Nose without bleeding or purulent drainage. CARDIOVASCULAR: Regular rate and rhythm without murmurs, gallops, or rubs. No JVD. Peripheral pulses symmetric. RESPIRATORY/CHEST: Breath sounds clear, diminished bilaterally. GASTROINTESTINAL: Abdomen soft, nontender to palpation, patient reports his abdomen has a a general tenderness. Active bowel sounds. GENITOURINARY: Voids. MUSCULOSKELETAL: Extremities without clubbing, cyanosis. BLE 2+ pitting edema. No mottling or clubbing. NEUROLOGICAL: Alert and awake. Oriented x 3. Follows commands. PSYCHIATRIC: No obvious anxiety/depression. No apparent hallucinations or other psychotic thought process. . Diagnostic Tests Laboratory Laboratory Tests Test 08/01/17 14:30 08/02/17 06:15 08/03/17 08:30 Blood Urea Nitrogen 8 MG/DL (7-18) 7 MG/DL (7-18) 6 MG/DL (7-18) Creatinine 1.65 MG/DL (0.60-1.30) 1.49 MG/DL (0.60-1.30) 1.46 MG/DL (0.60-1.30) Random Glucose 133 MG/DL (74-106) 108 MG/DL (74-106) 105 MG/DL (74-106) Calcium Level 7.7 MG/DL (8.5-10.1) 8.0 MG/DL (8.5-10.1) 7.8 MG/DL (8.5-10.1) Phosphorus Level 3.0 MG/DL (2.5-4.9) Magnesium Level 1.5 MG/DL (1.5-2.5) 1.6 MG/DL (1.5-2.5) 1.6 MG/DL (1.5-2.5) Sodium Level 135 MEQ/L (136-145) 136 MEQ/L (136-145) 134 MEQ/L (136-145) Potassium Level 2.9 MEQ/L (3.5-5.1) 3.0 MEQ/L (3.5-5.1) 3.4 MEQ/L (3.5-5.1) Chloride Level 96 MEQ/L (98-107) 97 MEQ/L (98-107) 96 MEQ/L (98-107) Carbon Dioxide Level 31.3 MEQ/L (21.0-32.0) 30.7 MEQ/L (21.0-32.0) 29.7 MEQ/L (21.0-32.0) Anion Gap 8 MEQ/L (5-15) 8 MEQ/L (5-15) 8 MEQ/L (5-15) Estimat Glomerular Filtration Rate 44 ML/MIN (>89) 50 ML/MIN (>89) 51 ML/MIN (>89) Result Diagram: 08/03/17 0830 Procedures 06/30/17: EGD . Assessment and Plan Disease Oriented Problem List: (1) Gastrointestinal bleed (2) Esophageal varices (3) Menendez esophagus (4) Jaundice (5) Gastritis (6) Tobacco abuse Symptom Scale: (1) Pain (2) Dyspnea (3) Encephalopathy Pertinent Non-Medical Issues Psychosocial:Patient is originally from [facility]. He moved to [place] approximately 20 years ago. 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 Patient is but has 4 adult children from this marriage. (Abbey Donnelly, Nikko and Sergio). Apparently he also has a 14-year- old daughter from a different relationship; she lives in [place]. Spiritual: Holiness ariana Legal: None known. Ethical issues impacting care: No known ethical issues impacting care at this time . . Important Contacts Major ([facility]), son: [phone] Tea Calhoun, spouse/former spouse: [phone] Abbey, daughter [phone] Nikko, son, Sergio, son: [phone] . Prognosis Patient is a 51-year-old male with multiple comorbid conditions. He was admitted with suspected GI bleed, persistent ileus, liver cirrhosis/elevated LFTs, thrombocytopenia/coagulopathy and hepatic encephalopathy. Now being treated for pneumonia. He is not a candidate for liver transplant. He is at high risk for ongoing complications and decline. . Code Status: Full Code Plan * FULL CODE * Decision-making: Patient has waxing and waning neurological status. Suggest shared decision making with patient's son German Martin ([facility]). * GOALS: Aggressive. No change in goals. * Symptom management - encephalopathy: Resolved. No recommendations at this time. * Symptom management - dyspnea:Resolved. On room air. Duonebs 1 ampule q 2hr PRN for shortness of breath. No recommendations. * Symptom management- pain: Multifactorial, patient's abdominal pain is intermittent, now C/O generalized pain. Gabapentin 600mg TID and 900mg QHS. Patient reports improvement in pain following increase in QHS tramadol. No recommendations at this time. * Palliative care will continue to follow this patient throughout his hospitalization to establish trust, assist with symptom management and clarification of medical treatment goals. . Attestation To help prompt me to consider important information that might be impacting today's encounter and assessment, information from prior notes written by myself or my colleagues may have been "brought forward" into today's note. My signature on this note, however, is an attestation that I personally performed the exam, history, and/or decision-making noted today, and, unless otherwise indicated, the interactions with patient, family, and staff as well as the review of records all occurred today. I also attest that the listed assessment and stated plan reflect my best clinical judgment today based on the combination of historical information, prior notes, and today's exam/ interactions. When time spent is documented, it refers only to time spent today by the signer, or if indicated, combined time spent today by collaborating physician/nurse practitioner. Dinora Lokc Aug 03, 2017 13:05
--- NOTE | 2017-08-03 13:05 | HHI.HCPN ---
Reason for visit a. To assist with evaluation and management of symptoms including: pain, encephalopathy, and dyspnea b. To assist medical decision maker(s) with: better understanding of current medical conditions; weighing benefits/burdens of medical treatment options; making medical treatment decisions. . Subjective/Interval History Patient seen and examined today, chart and available laboratory data reviewed. Patient up to chair, finishing his lunch, awake, alert, and oriented x 3. Patient states his abdominal pain has resolved and he has not experienced any nausea recently. He complains of ongoing pain, weakness, and swelling in BLE. Neurology is following, gabapentin DC today due to questionable causative source of swelling. Advance Directives Health Care Surrogate: Copy in medical record Advance Directive Specifics Date completed: 07/13/17 . Health Care Surrogate(s): German Martin (son) [phone] Jeanine Salgado (former spouse) [phone] Documented care wishes: No known documented care wishes. . Objective Vital Signs Date Time Temp Pulse Resp B/P (MAP) Pulse Ox O2 Delivery O2 Flow Rate FiO2 08/03/17 08:00 98.4 73 16 107/57 (74) 95 08/03/17 05:49 98.4 73 18 107/50 (69) 94 08/03/17 01:39 67 08/03/17 00:00 98.7 76 18 101/56 (71) 95 08/02/17 22:25 18 08/02/17 20:42 97.8 76 18 119/88 (98) 98 08/02/17 17:58 93 Nasal Cannula 2.00 08/02/17 16:27 71 08/02/17 16:26 98.3 78 20 117/54 (75) 93 08/02/17 13:18 95 Nasal Cannula 2.00 Intake & Output 08/03/17 08/03/17 07:00 19:00 Output Total 2000 ml Balance -2000 ml Output Urine Total 2000 ml . Physical Exam CONSTITUTIONAL/GENERAL: This is an adequately nourished, middle aged male in no acute distress. TUBES/LINES/DRAINS: PIV 1 EYES: Pupils equal and round. No injection or drainage. ENT: Hearing grossly normal. Nose without bleeding or purulent drainage. CARDIOVASCULAR: Regular rate and rhythm without murmurs, gallops, or rubs. No JVD. Peripheral pulses symmetric. RESPIRATORY/CHEST: Breath sounds clear, diminished bilaterally. GASTROINTESTINAL: Abdomen soft, nontender to palpation, patient reports his abdomen has a a general tenderness. Active bowel sounds. GENITOURINARY: Voids. MUSCULOSKELETAL: Extremities without clubbing, cyanosis. BLE 2+ pitting edema. No mottling or clubbing. NEUROLOGICAL: Alert and awake. Oriented x 3. Follows commands. PSYCHIATRIC: No obvious anxiety/depression. No apparent hallucinations or other psychotic thought process. . Diagnostic Tests Laboratory Laboratory Tests Test 08/01/17 14:30 08/02/17 06:15 08/03/17 08:30 Blood Urea Nitrogen 8 MG/DL (7-18) 7 MG/DL (7-18) 6 MG/DL (7-18) Creatinine 1.65 MG/DL (0.60-1.30) 1.49 MG/DL (0.60-1.30) 1.46 MG/DL (0.60-1.30) Random Glucose 133 MG/DL (74-106) 108 MG/DL (74-106) 105 MG/DL (74-106) Calcium Level 7.7 MG/DL (8.5-10.1) 8.0 MG/DL (8.5-10.1) 7.8 MG/DL (8.5-10.1) Phosphorus Level 3.0 MG/DL (2.5-4.9) Magnesium Level 1.5 MG/DL (1.5-2.5) 1.6 MG/DL (1.5-2.5) 1.6 MG/DL (1.5-2.5) Sodium Level 135 MEQ/L (136-145) 136 MEQ/L (136-145) 134 MEQ/L (136-145) Potassium Level 2.9 MEQ/L (3.5-5.1) 3.0 MEQ/L (3.5-5.1) 3.4 MEQ/L (3.5-5.1) Chloride Level 96 MEQ/L (98-107) 97 MEQ/L (98-107) 96 MEQ/L (98-107) Carbon Dioxide Level 31.3 MEQ/L (21.0-32.0) 30.7 MEQ/L (21.0-32.0) 29.7 MEQ/L (21.0-32.0) Anion Gap 8 MEQ/L (5-15) 8 MEQ/L (5-15) 8 MEQ/L (5-15) Estimat Glomerular Filtration Rate 44 ML/MIN (>89) 50 ML/MIN (>89) 51 ML/MIN (>89) Result Diagram: 08/03/17 0830 Procedures 06/30/17: EGD . Assessment and Plan Disease Oriented Problem List: (1) Gastrointestinal bleed (2) Esophageal varices (3) Menendez esophagus (4) Jaundice (5) Gastritis (6) Tobacco abuse Symptom Scale: (1) Pain (2) Dyspnea (3) Encephalopathy Pertinent Non-Medical Issues Psychosocial:Patient is originally from [facility]. He moved to [place] approximately 20 years ago. 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 Patient is but has 4 adult children from this marriage. (Abbey Donnelly, Nikko and Sergio). Apparently he also has a 14-year- old daughter from a different relationship; she lives in [place]. Spiritual: Sabianist ariana Legal: None known. Ethical issues impacting care: No known ethical issues impacting care at this time . . Important Contacts Major ([facility]), son: [phone] Tea Calhoun, spouse/former spouse: [phone] Abbey, daughter [phone] Nikko, son, Sergio, son: [phone] . Prognosis Patient is a 51-year-old male with multiple comorbid conditions. He was admitted with suspected GI bleed, persistent ileus, liver cirrhosis/elevated LFTs, thrombocytopenia/coagulopathy and hepatic encephalopathy. Now being treated for pneumonia. He is not a candidate for liver transplant. He is at high risk for ongoing complications and decline. . Code Status: Full Code Plan * FULL CODE * Decision-making: Patient has waxing and waning neurological status. Suggest shared decision making with patient's son German Martin ([facility]). * GOALS: Aggressive. No change in goals. * Symptom management - encephalopathy: Resolved. No recommendations at this time. * Symptom management - dyspnea:Resolved. On room air. Duonebs 1 ampule q 2hr PRN for shortness of breath. No recommendations. * Symptom management- pain: Multifactorial, patient's abdominal pain is intermittent, now C/O generalized pain. Gabapentin 600mg TID and 900mg QHS. Patient reports improvement in pain following increase in QHS tramadol. No recommendations at this time. * Palliative care will continue to follow this patient throughout his hospitalization to establish trust, assist with symptom management and clarification of medical treatment goals. . Attestation To help prompt me to consider important information that might be impacting today's encounter and assessment, information from prior notes written by myself or my colleagues may have been "brought forward" into today's note. My signature on this note, however, is an attestation that I personally performed the exam, history, and/or decision-making noted today, and, unless otherwise indicated, the interactions with patient, family, and staff as well as the review of records all occurred today. I also attest that the listed assessment and stated plan reflect my best clinical judgment today based on the combination of historical information, prior notes, and today's exam/ interactions. When time spent is documented, it refers only to time spent today by the signer, or if indicated, combined time spent today by collaborating physician/nurse practitioner. Dinora Lock Aug 03, 2017 13:05
[2017-08-03] MEDS: cloNIDine HCL 0.1 MG TAB PO SCH ×2 (14:00→20:42)
[2017-08-03] MEDS ORDERED: MAGNESIUM OXIDE 400 MG TAB PO ONE (14:15)
--- NOTE | 2017-08-03 17:15 | HHI.NPPN ---
Subjective History of Present Illness 51-year-old male with a past medical history of cirrhosis of the liver, bronchial asthma, depression, hyperlipidemia, pancreatitis, Menendez's esophagus, chronic abdominal pain, possible history of gastric ulcer and varices, questionable esophageal cancer who was admitted with abdominal pain and distension. I was called to see the patient because of elevated BUN and creatinine. Additional Remarks Patient is alert, no SOB, swelling in the legs improving, still has leg pain. Review of Systems General Constitutional: Fatigue Respiratory Lungs: Wheeze Cardiovascular Cardiac: CORTES Gastrointestinal Gastrointestinal: Abdominal Pain Objective Data Data Vital Signs Date Time Temp Pulse Resp B/P (MAP) Pulse Ox O2 Delivery O2 Flow Rate FiO2 08/03/17 14:43 94 Nasal Cannula 2.00 08/03/17 12:00 98.6 78 16 111/60 (77) 94 08/03/17 08:00 98.4 73 16 107/57 (74) 95 08/03/17 05:49 98.4 73 18 107/50 (69) 94 08/03/17 01:39 67 08/03/17 00:00 98.7 76 18 101/56 (71) 95 08/02/17 22:25 18 08/02/17 20:42 97.8 76 18 119/88 (98) 98 08/02/17 17:58 93 Nasal Cannula 2.00 -: 08/03/17 0830 Physical Exam General Appearance: No Acute Distress, Anxious Throat Throat Exam: Oral Mucosa [place] & Moist Neck Neck Exam: Neck Supple Pulmonary Resp Exam: Breath Sounds Equal, Rhonchi, Decreased Bases Cardiology CV Exam: Regular, Normal Sinus Rhythm Gastrointestinal/Abdomen GI Exam: Soft, Bowel Sounds Present, Distended Extremeties Extremities Exam: Moderate Edema, Pitting Edema Neurologic Neuro Exam: Alert, Awake, Oriented Assessment/Plan Assessment Summary: DON/Acute Renal Failure Problem List: (1) Acute kidney injury ICD Codes: N17.9 - Acute kidney failure, unspecified (2) Encephalopathy ICD Codes: G93.40 - Encephalopathy, unspecified (3) Anemia ICD Codes: D64.9 - Anemia, unspecified Status: Acute (4) Jaundice ICD Codes: R17 - Unspecified jaundice (5) Gastritis ICD Codes: K29.70 - Gastritis, unspecified, without bleeding Status: Acute (6) 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 Normal size kidneys and has Normal Na. in the urine. Urine Eosinophils is negative. Most likely has ATN causing DON. Has elevated Bilirubin. BP is stable, Follow the urine out put and BMP. Avoid Nephrotoxins. Dr. Guerra to follow Linette Guerra MD Aug 03, 2017 17:14
[2017-08-04] VITALS (7 sets, daily range): BP systolic 102–120; BP diastolic 55–60; PULSE 73–84; RESP 16–18; TEMP 98–99.8; O2SAT 94–95
[2017-08-04] MEDS: traMADol HCL 50 MG TAB PO PRN ×4 (02:58→21:55)
[2017-08-04] MEDS: BETHANECHOL CHL 25 MG TAB PO SCH ×3 (05:46→21:56)
[2017-08-04] MEDS: cloNIDine HCL 0.1 MG TAB PO SCH (05:46)
[2017-08-04 07:27] LABS: BICARBONATE 30.7 MEQ/L (21.0-32.0); CALCIUM 7.7 MG/DL (8.5-10.1); CREATININE 1.46 MG/DL (0.60-1.30); MAGNESIUM 1.6 MG/DL (1.5-2.5)
--- NOTE | 2017-08-04 08:33 | HHI.PR ---
Subjective Remarks awake and alert voiding well getting around with walker motivated- legs to heavy for him to even bear weight Objective Vitals Vital Signs Date Time Temp Pulse Resp B/P (MAP) Pulse Ox O2 Delivery O2 Flow Rate FiO2 08/04/17 04:00 98.6 75 18 107/55 (72) 94 08/03/17 21:02 99.3 77 18 102/51 (68) 94 08/03/17 20:47 94 Nasal Cannula 2.00 08/03/17 20:00 76 08/03/17 16:00 98.7 76 16 117/59 (78) 94 08/03/17 14:43 94 Nasal Cannula 2.00 08/03/17 12:00 98.6 78 16 111/60 (77) 94 I/O 08/03/17 08/03/17 08/03/17 08/04/17 08/04/17 08/04/17 07:00 15:00 23:00 07:00 15:00 23:00 Intake Total 1620 ml Output Total 2000 ml 2275 ml 2100 ml Balance -2000 ml -655 ml -2100 ml Intake Oral 1620 ml Output Urine Total 2000 ml 2275 ml 2100 ml # Bowel Movements 2 1 Result Diagram: 08/04/17 0625 Imaging Last Impressions Lower Extremity Ultrasound 07/25/17 0000 Signed Impressions: Service Date/Time: Tuesday, July 25, 2017 17:47 - CONCLUSION: Normal examination. Albert Walden MD Abdomen X-Ray 07/25/17 0000 Signed Impressions: Service Date/Time: Tuesday, July 25, 2017 09:35 - CONCLUSION: Nonspecific mildly distended small bowel. Some degree of ileus or obstruction can be considered. Nikko Mason MD Abdomen Ultrasound 07/25/17 0000 Signed Impressions: Service Date/Time: Tuesday, July 25, 2017 10:27 - CONCLUSION: Mild ascites. Nikko Mason MD Thoracic Spine MRI 07/22/17 0705 Signed Impressions: Service Date/Time: Saturday, July 22, 2017 12:06 - CONCLUSION: 1. Small bilateral pleural effusions. 2. Patent central canal. Caesar Shafer Jr., MD Lumbar Spine MRI 07/22/17 0705 Signed Impressions: Service Date/Time: Saturday, July 22, 2017 12:06 - CONCLUSION: 1. Mild degenerative disc disease at L2-L3. No spinal canal stenosis or neural foraminal stenosis is present. 2. Left upper quadrant varices. These were documented on prior CT from 06/29/4017 and are likely related to chronic liver disease/cirrhosis. Nikko Cote MD Cervical Spine MRI 07/22/17 0705 Signed Impressions: Service Date/Time: Saturday, July 22, 2017 12:06 - CONCLUSION: Degenerative disc disease at C5-C6 and C6-C7. However, no spinal canal stenosis or neural foraminal narrowing is present. Spinal cord demonstrates no abnormality. Nikko Cote MD Brain MRI 07/22/17 07 Signed Impressions: Service Date/Time: Saturday, July 22, 2017 12:06 - CONCLUSION: Negative MRI of the brain for acute process. I do not see evidence for an ischemic event. Colten Nelson MD FACR Small Bowel X-Ray 07/10/17 0000 Signed Impressions: Service Date/Time: Monday, July 10, 2017 08:26 - CONCLUSION: 1. Diffuse small bowel dilatation and delayed small bowel transit time of approximately 5- 6 hours without focal transition point, intraluminal filling defect or gross mass. Findings are most consistent with moderate adynamic ileus. Bryson Downing MD Renal Ultrasound 07/10/17 0000 Signed Impressions: Service Date/Time: Monday, July 10, 2017 18:25 - CONCLUSION: 1. Unremarkable renal ultrasound. Mild ascites. Albert Walden MD Chest X-Ray 07/09/17 0600 Signed Impressions: Service Date/Time: July 06:10 - CONCLUSION: 1. Minimal basilar dependent density. Differential diagnosis includes atelectasis. Findings similar to prior exam. Albert Walden MD Chest CT 07/05/17 1635 Signed Impressions: Service Date/Time: Wednesday, July 05, 2017 18:11 - CONCLUSION: 1. Segmental consolidation with volume loss medial right lower lung. 2. Atelectasis or basilar consolidation left lower lung. 3. Mild amount of ascites. Caesar Ann MD Abdomen MRI 07/02/17 0000 Signed Impressions: Service Date/Time: June 16:34 - CONCLUSION: 1. Hepatomegaly and hepatic steatosis. No focal mass identified. 2. Moderate splenomegaly. 3. Small amount of ascites. 4. Small bilateral pleural effusions. Wilbert Howe MD Ankle X-Ray 07/01/17 0000 Signed Impressions: Service Date/Time: Saturday, July 01, 2017 10:22 - CONCLUSION: Soft tissue mass noted to be fluid filled on ultrasound 09/10/2012. Colten Nelson MD FACR Head CT 06/30/17 0000 Signed Impressions: Service Date/Time: Saturday, July 01, 2017 02:24 - CONCLUSION: 1. No acute intracranial abnormalities. Previous fixation left maxillary sinus. Albert Walden MD Cervical Spine CT 06/30/17 0000 Signed Impressions: Service Date/Time: Saturday, July 01, 2017 02:24 - CONCLUSION: Normal examination for a patient of this age. Albert Walden MD Abdomen/Pelvis CT 06/29/17 0000 Signed Impressions: Service Date/Time: Thursday, June 29, 2017 12:52 - CONCLUSION: 1. Hepatosplenomegaly and varices noted as above. 2. Atherosclerosis. 3. Abnormal diffuse heterogeneous appearance of the liver which may be related to either marked hepatic steatosis in an inhomogeneous fashion versus steatosis and underlying diffuse liver masses. An MRI of the abdomen with and without contrast may be helpful for further evaluation of this finding. Navjot Chirinos MD Objective Remarks awake and alert, oriented x 3 anicteric lungs- no rales, no wheezes regular rhythm abdomen- soft, good bowel sounds,no guarding, no tenderness, good bowel sounds, no rebound tenderness extremities ++ edema- improving, no calf tenderness moves all extremities spontaneously, no deficits Procedures 06/30/17 EGD A/P Problem List: (1) Esophageal varices ICD Code: I85.00 - Esophageal varices without bleeding (2) Gastrointestinal bleed ICD Code: K92.2 - Gastrointestinal hemorrhage, unspecified (3) GERD Status: Chronic (4) Alcohol use ICD Code: Z78.9 - Other specified health status Status: Acute (5) Tobacco abuse ICD Code: Z72.0 - Tobacco use Status: Chronic (6) Jaundice ICD Code: R17 - Unspecified jaundice (7) Gastritis ICD Code: K29.70 - Gastritis, unspecified, without bleeding Status: Acute (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 Continue physical therapy. Continue to monitor for continued bowel movements and improvement in GI symptoms. Ileus- resolved- Acute pancreatitis- lipase elevated 500s 07/28- lipase trending down- clinically improved - abdominal pain better, exam benign - tolerating regular diet DON- creatinine stabilizing HYpokalemia-improved - non oliguric Bumex 2 mg po bid with KCL bid KCL 40 meq po bid. - FF BMP -Nephrology ff HYpertension- improved readings - controlled with Bumex - Clonidine tapering and adjusting - was on 0.2 mg po q8 at one point - now down to 0.1 mg q8 - not getting it- will DC altogether and just write for prn - continue to monitor bilateral LE edema- chronic- gradually improving- likely will have chronic edema with cirrhosis Continue Xifaxan- + LE edema- doppler negative for DVT - will control with bumex with monitoring of renal functions on Bumex per Nephrology GI Bleed- resolved Hepatic Encephalopathy- resolved Liver cirrhosis Etiology had been gastritis and duodenitis Continue Protonix bid minimal ascites on US 07/25 LFTs trended down and stabilizing Generalized Weakness/Deconditioning Pain continue PT- d/w him to be more active as tolerable No payor source for SNF will not start NSAIds with DON Neurontin- dc by neurology ideally - needs SNF. no payor source Tramadol prn for pain ETOH Withdrawal -Resolved Continue folic acid Continue thiamine Continue multivitamin DVT Prophylaxis SCDs (high bleed risk)- GIB-on presentation, high risk of bleeding, varices, thrombocytopenia from cirrhosis patient getting around Discharge Planning To much weakness for safe discharge- lives by himself SNF not yet an option due to lack of payor source CM assisting up- has a disability hearing- by phone- 3rd appeal scheduled by this Kera Christensen MD Aug 04, 2017 08:33
[2017-08-04] MEDS: SODIUM CHLORIDE 0.9% FLUSH 10 ML FLUSH IV FLUSH SCH ×2 (09:00→21:55)
[2017-08-04] MEDS: REMOVE OLD PATCH T-DERMAL SCH (09:00)
[2017-08-04] MEDS ORDERED: cloNIDine HCL 0.1 MG TAB PO PRN (09:00)
[2017-08-04] MEDS: RIFAXIMIN 550 MG TAB PO SCH ×2 (09:18→21:56)
[2017-08-04] MEDS: BUMETANIDE 1 MG TAB PO SCH ×2 (09:19→21:56)
[2017-08-04] MEDS: PANTOPRAZOLE SOD 40 MG DELAYED RELEASE TAB PO SCH ×2 (09:19→21:56)
[2017-08-04] MEDS: METOCLOPRAMIDE HCL 10 MG TAB PO SCH ×4 (09:19→21:56)
[2017-08-04] MEDS: MULTIVITAMIN TAB PO SCH (09:19)
[2017-08-04] MEDS: POTASSIUM CHLORIDE 20 MEQ CONTROLLED RELEASE TAB PO SCH ×2 (09:20→22:09)
[2017-08-04] MEDS: THIAMINE HCL 100 MG TAB PO SCH (09:20)
[2017-08-04] MEDS: PSYLLIUM FIBER SF/GF 6 GM POWD PKT PO SCH ×2 (09:20→22:10)
[2017-08-04] MEDS: NICOTINE 14 MG/24 HR PATCH T-DERMAL SCH (09:23)
[2017-08-04] MEDS: POTASSIUM CHLORIDE 25 MEQ EFFERVESCENT TAB PO PRN (21:57)
[2017-08-05] VITALS (7 sets, daily range): BP systolic 110–123; BP diastolic 56–60; PULSE 79–88; RESP 16–18; TEMP 98.8–99.2; O2SAT 91–98
[2017-08-05] MEDS: BETHANECHOL CHL 25 MG TAB PO SCH ×3 (04:52→21:26)
[2017-08-05] MEDS: traMADol HCL 50 MG TAB PO PRN ×4 (04:53→23:12)
[2017-08-05] MEDS: PSYLLIUM FIBER SF/GF 6 GM POWD PKT PO SCH ×2 (09:00→21:00)
[2017-08-05] MEDS: REMOVE OLD PATCH T-DERMAL SCH (09:00)
[2017-08-05] MEDS: SODIUM CHLORIDE 0.9% FLUSH 10 ML FLUSH IV FLUSH SCH ×2 (09:00→21:00)
[2017-08-05] MEDS: PANTOPRAZOLE SOD 40 MG DELAYED RELEASE TAB PO SCH ×2 (09:51→21:27)
[2017-08-05] MEDS: THIAMINE HCL 100 MG TAB PO SCH (09:51)
[2017-08-05] MEDS: BUMETANIDE 1 MG TAB PO SCH (09:51)
[2017-08-05] MEDS: MULTIVITAMIN TAB PO SCH (09:51)
[2017-08-05] MEDS: METOCLOPRAMIDE HCL 10 MG TAB PO SCH ×4 (09:51→21:26)
[2017-08-05] MEDS: RIFAXIMIN 550 MG TAB PO SCH ×2 (09:52→21:27)
[2017-08-05] MEDS: NICOTINE 14 MG/24 HR PATCH T-DERMAL SCH (09:52)
[2017-08-05 10:09] LABS: BICARBONATE 30.2 MEQ/L (21.0-32.0); CREATININE 1.28 MG/DL (0.60-1.30)
[2017-08-05] MEDS: POTASSIUM CHLORIDE 20 MEQ CONTROLLED RELEASE TAB PO SCH ×2 (11:25→21:27)
--- NOTE | 2017-08-05 13:59 | HHI.HCPN ---
Reason for visit a. To assist with evaluation and management of symptoms including: pain, encephalopathy, and dyspnea b. To assist medical decision maker(s) with: better understanding of current medical conditions; weighing benefits/burdens of medical treatment options; making medical treatment decisions. . Subjective/Interval History Patient examined today, chart and available laboratory data reviewed. Patient was returning to bed, he is awake, alert, and oriented x 3. He states his abdominal pain has resolved, to exam patient's abdomen is no longer distended, his abdomen is soft, and nontender to palpation. The patient's lower extremity edema remains unresolved, he complains of ongoing pain, weakness, and swelling in BLE. Patient's BLE are red, edematous, and hot. Neurology DC'd gabapentin on Thursday due to questionable causative source of swelling. Advance Directives Health Care Surrogate: Copy in medical record Advance Directive Specifics Date completed: 07/13/17 . Health Care Surrogate(s): German Martin (son) [phone] Jeanine Salgado (former spouse) [phone] Documented care wishes: No known documented care wishes. . Objective Vital Signs Date Time Temp Pulse Resp B/P (MAP) Pulse Ox O2 Delivery O2 Flow Rate FiO2 08/05/17 12:49 98.9 88 16 116/60 (78) 96 08/05/17 08:37 98.8 81 18 123/59 (80) 95 08/05/17 04:00 98.8 86 18 114/57 (76) 91 08/05/17 00:00 99.2 79 18 110/56 (74) 95 08/04/17 20:45 78 08/04/17 20:00 99.8 84 18 102/55 (71) 94 08/04/17 18:10 99.5 80 16 119/60 (79) 95 Intake & Output 08/05/17 08/05/17 07:00 19:00 Intake Total 360 ml Output Total 1950 ml Balance -1590 ml Intake Oral 360 ml Output Urine Total 1950 ml # Voids 3 Physical Exam CONSTITUTIONAL/GENERAL: This is an adequately nourished, middle aged male in no acute distress. TUBES/LINES/DRAINS: PIV 1 EYES: Pupils equal and round. No injection or drainage. ENT: Hearing grossly normal. Nose without bleeding or purulent drainage. CARDIOVASCULAR: Regular rate and rhythm without murmurs, gallops, or rubs. No JVD. Peripheral pulses symmetric. RESPIRATORY/CHEST: Breath sounds clear, diminished bilaterally. GASTROINTESTINAL: Abdomen soft, nondistended, nontender to palpation. Active bowel sounds. GENITOURINARY: Voids. MUSCULOSKELETAL: Extremities without clubbing, cyanosis. BLE 2+ pitting edema, red, and hot. No mottling or clubbing. NEUROLOGICAL: Alert and awake. Oriented x 3. Follows commands. PSYCHIATRIC: No obvious anxiety/depression. No apparent hallucinations or other psychotic thought process. . Diagnostic Tests Laboratory Laboratory Tests Test 08/03/17 08:30 08/04/17 06:25 08/05/17 07:52 Blood Urea Nitrogen 6 MG/DL (7-18) 6 MG/DL (7-18) 6 MG/DL (7-18) Creatinine 1.46 MG/DL (0.60-1.30) 1.46 MG/DL (0.60-1.30) 1.28 MG/DL (0.60-1.30) Random Glucose 105 MG/DL (74-106) 101 MG/DL (74-106) 98 MG/DL (74-106) Calcium Level 7.8 MG/DL (8.5-10.1) 7.7 MG/DL (8.5-10.1) 8.0 MG/DL (8.5-10.1) Magnesium Level 1.6 MG/DL (1.5-2.5) 1.6 MG/DL (1.5-2.5) Sodium Level 134 MEQ/L (136-145) 133 MEQ/L (136-145) 136 MEQ/L (136-145) Potassium Level 3.4 MEQ/L (3.5-5.1) 3.5 MEQ/L (3.5-5.1) 3.1 MEQ/L (3.5-5.1) Chloride Level 96 MEQ/L (98-107) 96 MEQ/L (98-107) 97 MEQ/L (98-107) Carbon Dioxide Level 29.7 MEQ/L (21.0-32.0) 30.7 MEQ/L (21.0-32.0) 30.2 MEQ/L (21.0-32.0) Anion Gap 8 MEQ/L (5-15) 6 MEQ/L (5-15) 9 MEQ/L (5-15) Estimat Glomerular Filtration Rate 51 ML/MIN (>89) 51 ML/MIN (>89) 59 ML/MIN (>89) Result Diagram: 08/05/17 0752 Procedures 06/30/17: EGD . Assessment and Plan Disease Oriented Problem List: (1) Gastrointestinal bleed (2) Esophageal varices (3) Menendez esophagus (4) Jaundice (5) Gastritis (6) Tobacco abuse Symptom Scale: (1) Pain (2) Dyspnea (3) Encephalopathy Pertinent Non-Medical Issues Psychosocial:Patient is originally from [facility]. He moved to [place] approximately 20 years ago. 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 Patient is but has 4 adult children from this marriage. (Abbey Donnelly, Nikko and Sergio). Apparently he also has a 14-year- old daughter from a different relationship; she lives in [place]. Spiritual: Hoahaoism ariana Legal: None known. Ethical issues impacting care: No known ethical issues impacting care at this time . . Important Contacts Major ([facility]), son: [phone] Tea Calhoun, spouse/former spouse: [phone] Abbey, daughter [phone] Nikko, son, Sergio, son: [phone] . Prognosis Patient is a 51-year-old male with multiple comorbid conditions. He was admitted with suspected GI bleed, persistent ileus, liver cirrhosis/elevated LFTs, thrombocytopenia/coagulopathy and hepatic encephalopathy. Now being treated for pneumonia. He is not a candidate for liver transplant. He is at high risk for ongoing complications and decline. . Code Status: Full Code Plan * FULL CODE * Decision-making: Patient currently has the capacity to make informed medical decisions independently. He has previously designated his son German Martin ([facility]). * GOALS: Aggressive. Patient is awaiting disability hearing tomorrow in which he will phone in to participate. Due to lack of payor source placement has been an issue, patient lives alone and is not safe to discharge home due to profound weakness. * Patient has had ongoing unresolved lower extremity edema, given his persistent unresolved edema and history of atherosclerotic vascular disease, dyslipidemia, and hypertension, would recommend evaluating cardiac contribution to his ongoing problems with an echocardiogram and/or cardiac consultation as felt indicated. Review of records does not show any previous echocardiogram or cardiac evaluation. * Symptom management - encephalopathy: Resolved. No recommendations at this time. * Symptom management - dyspnea:Resolved. On room air. Duonebs 1 ampule q 2hr PRN for shortness of breath. No recommendations. * Symptom management- pain: Multifactorial, patient's abdominal pain is intermittent, now C/O generalized pain. Gabapentin 600mg TID and 900mg QHS. Patient reports improvement in pain following increase in QHS tramadol. No recommendations at this time. * Palliative care will continue to follow this patient throughout his hospitalization to establish trust, assist with symptom management and clarification of medical treatment goals. . Dinora Lock Aug 05, 2017 13:59
--- NOTE | 2017-08-05 13:59 | HHI.HCPN ---
Reason for visit a. To assist with evaluation and management of symptoms including: pain, encephalopathy, and dyspnea b. To assist medical decision maker(s) with: better understanding of current medical conditions; weighing benefits/burdens of medical treatment options; making medical treatment decisions. . Subjective/Interval History Patient examined today, chart and available laboratory data reviewed. Patient was returning to bed, he is awake, alert, and oriented x 3. He states his abdominal pain has resolved, to exam patient's abdomen is no longer distended, his abdomen is soft, and nontender to palpation. The patient's lower extremity edema remains unresolved, he complains of ongoing pain, weakness, and swelling in BLE. Patient's BLE are red, edematous, and hot. Neurology DC'd gabapentin on Thursday due to questionable causative source of swelling. Advance Directives Health Care Surrogate: Copy in medical record Advance Directive Specifics Date completed: 07/13/17 . Health Care Surrogate(s): German Martin (son) [phone] Jeanine Salgado (former spouse) [phone] Documented care wishes: No known documented care wishes. . Objective Vital Signs Date Time Temp Pulse Resp B/P (MAP) Pulse Ox O2 Delivery O2 Flow Rate FiO2 08/05/17 12:49 98.9 88 16 116/60 (78) 96 08/05/17 08:37 98.8 81 18 123/59 (80) 95 08/05/17 04:00 98.8 86 18 114/57 (76) 91 08/05/17 00:00 99.2 79 18 110/56 (74) 95 08/04/17 20:45 78 08/04/17 20:00 99.8 84 18 102/55 (71) 94 08/04/17 18:10 99.5 80 16 119/60 (79) 95 Intake & Output 08/05/17 08/05/17 07:00 19:00 Intake Total 360 ml Output Total 1950 ml Balance -1590 ml Intake Oral 360 ml Output Urine Total 1950 ml # Voids 3 Physical Exam CONSTITUTIONAL/GENERAL: This is an adequately nourished, middle aged male in no acute distress. TUBES/LINES/DRAINS: PIV 1 EYES: Pupils equal and round. No injection or drainage. ENT: Hearing grossly normal. Nose without bleeding or purulent drainage. CARDIOVASCULAR: Regular rate and rhythm without murmurs, gallops, or rubs. No JVD. Peripheral pulses symmetric. RESPIRATORY/CHEST: Breath sounds clear, diminished bilaterally. GASTROINTESTINAL: Abdomen soft, nondistended, nontender to palpation. Active bowel sounds. GENITOURINARY: Voids. MUSCULOSKELETAL: Extremities without clubbing, cyanosis. BLE 2+ pitting edema, red, and hot. No mottling or clubbing. NEUROLOGICAL: Alert and awake. Oriented x 3. Follows commands. PSYCHIATRIC: No obvious anxiety/depression. No apparent hallucinations or other psychotic thought process. . Diagnostic Tests Laboratory Laboratory Tests Test 08/03/17 08:30 08/04/17 06:25 08/05/17 07:52 Blood Urea Nitrogen 6 MG/DL (7-18) 6 MG/DL (7-18) 6 MG/DL (7-18) Creatinine 1.46 MG/DL (0.60-1.30) 1.46 MG/DL (0.60-1.30) 1.28 MG/DL (0.60-1.30) Random Glucose 105 MG/DL (74-106) 101 MG/DL (74-106) 98 MG/DL (74-106) Calcium Level 7.8 MG/DL (8.5-10.1) 7.7 MG/DL (8.5-10.1) 8.0 MG/DL (8.5-10.1) Magnesium Level 1.6 MG/DL (1.5-2.5) 1.6 MG/DL (1.5-2.5) Sodium Level 134 MEQ/L (136-145) 133 MEQ/L (136-145) 136 MEQ/L (136-145) Potassium Level 3.4 MEQ/L (3.5-5.1) 3.5 MEQ/L (3.5-5.1) 3.1 MEQ/L (3.5-5.1) Chloride Level 96 MEQ/L (98-107) 96 MEQ/L (98-107) 97 MEQ/L (98-107) Carbon Dioxide Level 29.7 MEQ/L (21.0-32.0) 30.7 MEQ/L (21.0-32.0) 30.2 MEQ/L (21.0-32.0) Anion Gap 8 MEQ/L (5-15) 6 MEQ/L (5-15) 9 MEQ/L (5-15) Estimat Glomerular Filtration Rate 51 ML/MIN (>89) 51 ML/MIN (>89) 59 ML/MIN (>89) Result Diagram: 08/05/17 0752 Procedures 06/30/17: EGD . Assessment and Plan Disease Oriented Problem List: (1) Gastrointestinal bleed (2) Esophageal varices (3) Menendez esophagus (4) Jaundice (5) Gastritis (6) Tobacco abuse Symptom Scale: (1) Pain (2) Dyspnea (3) Encephalopathy Pertinent Non-Medical Issues Psychosocial:Patient is originally from [facility]. He moved to [place] approximately 20 years ago. 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 Patient is but has 4 adult children from this marriage. (Abbey Donnelly, Nikko and Sergio). Apparently he also has a 14-year- old daughter from a different relationship; she lives in [place]. Spiritual: Sikh ariana Legal: None known. Ethical issues impacting care: No known ethical issues impacting care at this time . . Important Contacts Major ([facility]), son: [phone] Tea Calhoun, spouse/former spouse: [phone] Abbey, daughter [phone] Nikko, son, Sergio, son: [phone] . Prognosis Patient is a 51-year-old male with multiple comorbid conditions. He was admitted with suspected GI bleed, persistent ileus, liver cirrhosis/elevated LFTs, thrombocytopenia/coagulopathy and hepatic encephalopathy. Now being treated for pneumonia. He is not a candidate for liver transplant. He is at high risk for ongoing complications and decline. . Code Status: Full Code Plan * FULL CODE * Decision-making: Patient currently has the capacity to make informed medical decisions independently. He has previously designated his son German Martin ([facility]). * GOALS: Aggressive. Patient is awaiting disability hearing tomorrow in which he will phone in to participate. Due to lack of payor source placement has been an issue, patient lives alone and is not safe to discharge home due to profound weakness. * Patient has had ongoing unresolved lower extremity edema, given his persistent unresolved edema and history of atherosclerotic vascular disease, dyslipidemia, and hypertension, would recommend evaluating cardiac contribution to his ongoing problems with an echocardiogram and/or cardiac consultation as felt indicated. Review of records does not show any previous echocardiogram or cardiac evaluation. * Symptom management - encephalopathy: Resolved. No recommendations at this time. * Symptom management - dyspnea:Resolved. On room air. Duonebs 1 ampule q 2hr PRN for shortness of breath. No recommendations. * Symptom management- pain: Multifactorial, patient's abdominal pain is intermittent, now C/O generalized pain. Gabapentin 600mg TID and 900mg QHS. Patient reports improvement in pain following increase in QHS tramadol. No recommendations at this time. * Palliative care will continue to follow this patient throughout his hospitalization to establish trust, assist with symptom management and clarification of medical treatment goals. . Dinora Lock Aug 05, 2017 13:59
--- NOTE | 2017-08-05 13:59 | HHI.HCPN ---
Reason for visit a. To assist with evaluation and management of symptoms including: pain, encephalopathy, and dyspnea b. To assist medical decision maker(s) with: better understanding of current medical conditions; weighing benefits/burdens of medical treatment options; making medical treatment decisions. . Subjective/Interval History Patient examined today, chart and available laboratory data reviewed. Patient was returning to bed, he is awake, alert, and oriented x 3. He states his abdominal pain has resolved, to exam patient's abdomen is no longer distended, his abdomen is soft, and nontender to palpation. The patient's lower extremity edema remains unresolved, he complains of ongoing pain, weakness, and swelling in BLE. Patient's BLE are red, edematous, and hot. Neurology DC'd gabapentin on Thursday due to questionable causative source of swelling. Advance Directives Health Care Surrogate: Copy in medical record Advance Directive Specifics Date completed: 07/13/17 . Health Care Surrogate(s): German Martin (son) [phone] Jeanine Salgado (former spouse) [phone] Documented care wishes: No known documented care wishes. . Objective Vital Signs Date Time Temp Pulse Resp B/P (MAP) Pulse Ox O2 Delivery O2 Flow Rate FiO2 08/05/17 12:49 98.9 88 16 116/60 (78) 96 08/05/17 08:37 98.8 81 18 123/59 (80) 95 08/05/17 04:00 98.8 86 18 114/57 (76) 91 08/05/17 00:00 99.2 79 18 110/56 (74) 95 08/04/17 20:45 78 08/04/17 20:00 99.8 84 18 102/55 (71) 94 08/04/17 18:10 99.5 80 16 119/60 (79) 95 Intake & Output 08/05/17 08/05/17 07:00 19:00 Intake Total 360 ml Output Total 1950 ml Balance -1590 ml Intake Oral 360 ml Output Urine Total 1950 ml # Voids 3 Physical Exam CONSTITUTIONAL/GENERAL: This is an adequately nourished, middle aged male in no acute distress. TUBES/LINES/DRAINS: PIV 1 EYES: Pupils equal and round. No injection or drainage. ENT: Hearing grossly normal. Nose without bleeding or purulent drainage. CARDIOVASCULAR: Regular rate and rhythm without murmurs, gallops, or rubs. No JVD. Peripheral pulses symmetric. RESPIRATORY/CHEST: Breath sounds clear, diminished bilaterally. GASTROINTESTINAL: Abdomen soft, nondistended, nontender to palpation. Active bowel sounds. GENITOURINARY: Voids. MUSCULOSKELETAL: Extremities without clubbing, cyanosis. BLE 2+ pitting edema, red, and hot. No mottling or clubbing. NEUROLOGICAL: Alert and awake. Oriented x 3. Follows commands. PSYCHIATRIC: No obvious anxiety/depression. No apparent hallucinations or other psychotic thought process. . Diagnostic Tests Laboratory Laboratory Tests Test 08/03/17 08:30 08/04/17 06:25 08/05/17 07:52 Blood Urea Nitrogen 6 MG/DL (7-18) 6 MG/DL (7-18) 6 MG/DL (7-18) Creatinine 1.46 MG/DL (0.60-1.30) 1.46 MG/DL (0.60-1.30) 1.28 MG/DL (0.60-1.30) Random Glucose 105 MG/DL (74-106) 101 MG/DL (74-106) 98 MG/DL (74-106) Calcium Level 7.8 MG/DL (8.5-10.1) 7.7 MG/DL (8.5-10.1) 8.0 MG/DL (8.5-10.1) Magnesium Level 1.6 MG/DL (1.5-2.5) 1.6 MG/DL (1.5-2.5) Sodium Level 134 MEQ/L (136-145) 133 MEQ/L (136-145) 136 MEQ/L (136-145) Potassium Level 3.4 MEQ/L (3.5-5.1) 3.5 MEQ/L (3.5-5.1) 3.1 MEQ/L (3.5-5.1) Chloride Level 96 MEQ/L (98-107) 96 MEQ/L (98-107) 97 MEQ/L (98-107) Carbon Dioxide Level 29.7 MEQ/L (21.0-32.0) 30.7 MEQ/L (21.0-32.0) 30.2 MEQ/L (21.0-32.0) Anion Gap 8 MEQ/L (5-15) 6 MEQ/L (5-15) 9 MEQ/L (5-15) Estimat Glomerular Filtration Rate 51 ML/MIN (>89) 51 ML/MIN (>89) 59 ML/MIN (>89) Result Diagram: 08/05/17 0752 Procedures 06/30/17: EGD . Assessment and Plan Disease Oriented Problem List: (1) Gastrointestinal bleed (2) Esophageal varices (3) Menendez esophagus (4) Jaundice (5) Gastritis (6) Tobacco abuse Symptom Scale: (1) Pain (2) Dyspnea (3) Encephalopathy Pertinent Non-Medical Issues Psychosocial:Patient is originally from [facility]. He moved to [place] approximately 20 years ago. 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 Patient is but has 4 adult children from this marriage. (Abbey Donnelly, Nikko and Sergio). Apparently he also has a 14-year- old daughter from a different relationship; she lives in [place]. Spiritual: Congregation ariana Legal: None known. Ethical issues impacting care: No known ethical issues impacting care at this time . . Important Contacts Major ([facility]), son: [phone] Tea Calhoun, spouse/former spouse: [phone] Abbey, daughter [phone] Nikko, son, Sergio, son: [phone] . Prognosis Patient is a 51-year-old male with multiple comorbid conditions. He was admitted with suspected GI bleed, persistent ileus, liver cirrhosis/elevated LFTs, thrombocytopenia/coagulopathy and hepatic encephalopathy. Now being treated for pneumonia. He is not a candidate for liver transplant. He is at high risk for ongoing complications and decline. . Code Status: Full Code Plan * FULL CODE * Decision-making: Patient currently has the capacity to make informed medical decisions independently. He has previously designated his son German Martin ([facility]). * GOALS: Aggressive. Patient is awaiting disability hearing tomorrow in which he will phone in to participate. Due to lack of payor source placement has been an issue, patient lives alone and is not safe to discharge home due to profound weakness. * Patient has had ongoing unresolved lower extremity edema, given his persistent unresolved edema and history of atherosclerotic vascular disease, dyslipidemia, and hypertension, would recommend evaluating cardiac contribution to his ongoing problems with an echocardiogram and/or cardiac consultation as felt indicated. Review of records does not show any previous echocardiogram or cardiac evaluation. * Symptom management - encephalopathy: Resolved. No recommendations at this time. * Symptom management - dyspnea:Resolved. On room air. Duonebs 1 ampule q 2hr PRN for shortness of breath. No recommendations. * Symptom management- pain: Multifactorial, patient's abdominal pain is intermittent, now C/O generalized pain. Gabapentin 600mg TID and 900mg QHS. Patient reports improvement in pain following increase in QHS tramadol. No recommendations at this time. * Palliative care will continue to follow this patient throughout his hospitalization to establish trust, assist with symptom management and clarification of medical treatment goals. . Dinora Lock Aug 05, 2017 13:59
--- NOTE | 2017-08-05 14:56 | HHI.PR ---
Subjective Remarks Follow-up visit acute kidney injury, hypokalemia, liver cirrhosis, bilateral lower extremity edema. Patient seen and examined today lying in bed. States he had walked 3 steps forward today. As per nursing, patient was unable to climb up stairs. Complaints of continued bilateral lower extremity edema and pain states that it has reached his waist area. States he is drinking small amounts of water only and has been voiding throughout the day without difficulty. Denies pain and discomfort. Denies SOB/ dyspnea. Denies chest pain , palpitations, headaches, dizziness. Denies chills, n/v/d. Denies hematuria, dysuria. Objective Vitals Vital Signs Date Time Temp Pulse Resp B/P (MAP) Pulse Ox O2 Delivery O2 Flow Rate FiO2 08/05/17 12:49 98.9 88 16 116/60 (78) 96 08/05/17 08:37 98.8 81 18 123/59 (80) 95 08/05/17 04:00 98.8 86 18 114/57 (76) 91 08/05/17 00:00 99.2 79 18 110/56 (74) 95 08/04/17 20:45 78 08/04/17 20:00 99.8 84 18 102/55 (71) 94 08/04/17 18:10 99.5 80 16 119/60 (79) 95 I/O 08/04/17 08/04/17 08/04/17 08/05/17 08/05/17 08/05/17 07:00 15:00 23:00 07:00 15:00 23:00 Intake Total 1180 ml 120 ml Output Total 2100 ml 2275 ml 1450 ml Balance -2100 ml -1095 ml -1330 ml Intake Oral 1180 ml 120 ml Output Urine Total 2100 ml 2275 ml 1450 ml # Voids 3 # Bowel Movements 1 Result Diagram: 08/05/17 0752 Imaging Last Impressions Lower Extremity Ultrasound 07/25/17 0000 Signed Impressions: Service Date/Time: Tuesday, July 25, 2017 17:47 - CONCLUSION: Normal examination. Albert Walden MD Abdomen X-Ray 07/25/17 0000 Signed Impressions: Service Date/Time: Tuesday, July 25, 2017 09:35 - CONCLUSION: Nonspecific mildly distended small bowel. Some degree of ileus or obstruction can be considered. Nikko Mason MD Abdomen Ultrasound 07/25/17 Signed Impressions: Service Date/Time: Tuesday, July 25, 2017 10:27 - CONCLUSION: Mild ascites. Nikko Mason MD Thoracic Spine MRI 07/22/17704 Signed Impressions: Service Date/Time: Saturday, July 22, 2017 12:06 - CONCLUSION: 1. Small bilateral pleural effusions. 2. Patent central canal. Caesar Shafer Jr., MD Lumbar Spine MRI 07/22/17704 Signed Impressions: Service Date/Time: Saturday, July 22, 2017 12:06 - CONCLUSION: 1. Mild degenerative disc disease at L2-L3. No spinal canal stenosis or neural foraminal stenosis is present. 2. Left upper quadrant varices. These were documented on prior CT from 06/29/4017 and are likely related to chronic liver disease/cirrhosis. Nikko Cote MD Cervical Spine MRI 07/22/17704 Signed Impressions: Service Date/Time: Saturday, July 22, 2017 12:06 - CONCLUSION: Degenerative disc disease at C5-C6 and C6-C7. However, no spinal canal stenosis or neural foraminal narrowing is present. Spinal cord demonstrates no abnormality. Nikko Cote MD Brain MRI 07/22/17704 Signed Impressions: Service Date/Time: Saturday, July 22, 2017 12:06 - CONCLUSION: Negative MRI of the brain for acute process. I do not see evidence for an ischemic event. Colten Nelson MD FACR Small Bowel X-Ray 07/10/17 Signed Impressions: Service Date/Time: Monday, July 10, 2017 08:26 - CONCLUSION: 1. Diffuse small bowel dilatation and delayed small bowel transit time of approximately 5- 6 hours without focal transition point, intraluminal filling defect or gross mass. Findings are most consistent with moderate adynamic ileus. Bryson Downing MD Renal Ultrasound 07/10/17 Signed Impressions: Service Date/Time: Monday, July 10, 2017 18:25 - CONCLUSION: 1. Unremarkable renal ultrasound. Mild ascites. Albert Walden MD Chest X-Ray 07/09/17 0600 Signed Impressions: Service Date/Time: July 06:10 - CONCLUSION: 1. Minimal basilar dependent density. Differential diagnosis includes atelectasis. Findings similar to prior exam. Albert Walden MD Chest CT 07/05/17 1635 Signed Impressions: Service Date/Time: Wednesday, July 05, 2017 18:11 - CONCLUSION: 1. Segmental consolidation with volume loss medial right lower lung. 2. Atelectasis or basilar consolidation left lower lung. 3. Mild amount of ascites. Caesar Ann MD Abdomen MRI 07/02/17 0000 Signed Impressions: Service Date/Time: June 16:34 - CONCLUSION: 1. Hepatomegaly and hepatic steatosis. No focal mass identified. 2. Moderate splenomegaly. 3. Small amount of ascites. 4. Small bilateral pleural effusions. Wilbert Howe MD Ankle X-Ray 07/01/17 0000 Signed Impressions: Service Date/Time: Saturday, July 01, 2017 10:22 - CONCLUSION: Soft tissue mass noted to be fluid filled on ultrasound 09/10/2012. Colten Nelson MD FACR Head CT 06/30/17 0000 Signed Impressions: Service Date/Time: Saturday, July 01, 2017 02:24 - CONCLUSION: 1. No acute intracranial abnormalities. Previous fixation left maxillary sinus. Albert Walden MD Cervical Spine CT 06/30/17 0000 Signed Impressions: Service Date/Time: Saturday, July 01, 2017 02:24 - CONCLUSION: Normal examination for a patient of this age. Albert Walden MD Abdomen/Pelvis CT 06/29/17 0000 Signed Impressions: Service Date/Time: Thursday, June 29, 2017 12:52 - CONCLUSION: 1. Hepatosplenomegaly and varices noted as above. 2. Atherosclerosis. 3. Abnormal diffuse heterogeneous appearance of the liver which may be related to either marked hepatic steatosis in an inhomogeneous fashion versus steatosis and underlying diffuse liver masses. An MRI of the abdomen with and without contrast may be helpful for further evaluation of this finding. Navjot Chirinos MD Objective Remarks GENERAL: This is a well-nourished, well-developed patient, in no apparent distress. SKIN: Warm and dry. HEENT: Normocephalic. Pupils equal round and reactive. Nose without bleeding. Airway patent. NECK: Trachea midline. CARDIOVASCULAR: Regular rate and rhythm without murmurs, gallops, or rubs. RESPIRATORY: Diminished bases. No wheezes, rales, or rhonchi. GASTROINTESTINAL: Abdomen soft, non-tender, nondistended. Bowel Sounds normoactive x4. MUSCULOSKELETAL: Extremities without clubbing, cyanosis. Bilateral lower ext +4 edema. Anasarca. NEUROLOGICAL: Awake and alert. Oriented to place, person. No focal neuro deficit. Moves all extremities. Normal speech. 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 Continue physical therapy. Continue to monitor for continued bowel movements and improvement in GI symptoms. DON, acute - non oliguric. Improving. - Nephrology following. Most likely ATN causing a KI. Normal size kidneys and has normal sodium and a urine. - Follow renal indices Hypokalemia - On Bumex 2 mg po bid with KCL 40mg BID - Potassium replacements when necessary - Monitor BMP Bilateral lower extremity edema, chronic - This is possibly due to liver cirrhosis. Continue Xifaxan - US Doppler negative for DVT - Impedes patient's mobility - On Bumex 2 mg by mouth twice a day with KCl. Will hold off Bumex by mouth and switch over to Bumex IV 1 mg twice a day, resume by mouth after if improved. Spoke with Dr. Jumani regarding switch. - Will add Aldactone - Jerome wraps Hypertension, chronic - Controlled with Bumex - Clonidine PRN - Continue to Monitor BP Trend Liver cirrhosis GI Bleed - resolved Hepatic Encephalopathy- resolved - Etiology had been gastritis and duodenitis - Continue Protonix bid - Minimal ascites on US 07/25/17 - LFTs trended down and stabilizing Generalized Weakness/Deconditioning Pain - continue PT- d/w him to be more active as tolerable - No payor source for SNF - Tramadol prn for pain, will not start NSAIds with DON - Neurontin discontinued by neurology - Barrier includes need to do stair living in a trailer with steps and limited space. BLE and pain with ambulation - bumex increased and aldactone aded. Jerome wraps when OOB. ETOH Withdrawal -Resolved - Continue folic acid - Continue thiamine - Continue multivitamin Ileus - resolved Acute pancreatitis- lipase elevated 500s 07/28- lipase trending down- clinically improved - abdominal pain better, exam benign - tolerating regular diet DVT Prophylaxis SCDs (high bleed risk)- GIB-on presentation, high risk of bleeding, varices, thrombocytopenia from cirrhosis, continue ambulation with PT Discharge Planning No payor source. Placement issue. CM following. Plan to DC home when patient is able to maneuver stairs. Markus Vergara Aug 05, 2017 14:56
[2017-08-05] MEDS ORDERED: POTASSIUM CHLORIDE 25 MEQ EFFERVESCENT TAB PO ONE (15:00)
[2017-08-05] MEDS ORDERED: BUMETANIDE INJ 1 MG/4 ML VIAL IV PUSH SCH (18:00)
--- NOTE | 2017-08-05 21:42 | HHI.NPPN ---
Subjective History of Present Illness 51-year-old male with a past medical history of cirrhosis of the liver, bronchial asthma, depression, hyperlipidemia, pancreatitis, Menendez's esophagus, chronic abdominal pain, possible history of gastric ulcer and varices, questionable esophageal cancer who was admitted with abdominal pain and distension. I was called to see the patient because of elevated BUN and creatinine. Additional Remarks Patient is alert, no SOB, swelling in the legs increased now. Review of Systems General Constitutional: Fatigue Respiratory Lungs: Wheeze Cardiovascular Cardiac: CORTES Gastrointestinal Gastrointestinal: Abdominal Pain Objective Data Data 08/05/17 08/06/17 19:00 07:00 Output Total 2950 ml Balance -2950 ml Output Urine Total 2950 ml Vital Signs Date Time Temp Pulse Resp B/P (MAP) Pulse Ox O2 Delivery O2 Flow Rate FiO2 08/05/17 16:59 99.0 82 18 111/59 (76) 98 08/05/17 12:49 98.9 88 16 116/60 (78) 96 08/05/17 08:37 98.8 81 18 123/59 (80) 95 08/05/17 04:00 98.8 86 18 114/57 (76) 91 08/05/17 00:00 99.2 79 18 110/56 (74) 95 -: 08/05/17 0752 Physical Exam General Appearance: No Acute Distress, Anxious Throat Throat Exam: Oral Mucosa [place] & Moist Neck Neck Exam: Neck Supple Pulmonary Resp Exam: Breath Sounds Equal, Rhonchi, Decreased Bases Cardiology CV Exam: Regular, Normal Sinus Rhythm Gastrointestinal/Abdomen GI Exam: Soft, Bowel Sounds Present, Distended Extremeties Extremities Exam: Moderate Edema, Pitting Edema Neurologic Neuro Exam: Alert, Awake, Oriented Assessment/Plan Assessment Summary: DON/Acute Renal Failure Problem List: (1) Acute kidney injury ICD Codes: N17.9 - Acute kidney failure, unspecified (2) Encephalopathy ICD Codes: G93.40 - Encephalopathy, unspecified (3) Anemia ICD Codes: D64.9 - Anemia, unspecified Status: Acute (4) Jaundice ICD Codes: R17 - Unspecified jaundice (5) Gastritis ICD Codes: K29.70 - Gastritis, unspecified, without bleeding Status: Acute (6) 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 Normal size kidneys and has Normal Na. in the urine. Urine Eosinophils is negative. Most likely has ATN causing DON. Has elevated Bilirubin. BP is stable, Follow the urine out put and BMP. Avoid Nephrotoxins. Creatinine is improving. Need more diuresis, changed Bumex to IV, increase to 2 mg. Also on Aldactone. Low Albumin also contributing to edema. Linette Guerra MD Aug 05, 2017 21:42
[2017-08-06] VITALS (7 sets, daily range): BP systolic 98–137; BP diastolic 52–75; PULSE 78–100; RESP 18; TEMP 98–98.9; O2SAT 92–95
[2017-08-06] MEDS: BETHANECHOL CHL 25 MG TAB PO SCH ×3 (05:21→20:59)
[2017-08-06] MEDS: traMADol HCL 50 MG TAB PO PRN ×4 (05:21→23:57)
[2017-08-06] MEDS: REMOVE OLD PATCH T-DERMAL SCH (09:00)
[2017-08-06] MEDS: PSYLLIUM FIBER SF/GF 6 GM POWD PKT PO SCH ×2 (09:00→21:00)
[2017-08-06] MEDS: SODIUM CHLORIDE 0.9% FLUSH 10 ML FLUSH IV FLUSH SCH ×2 (09:00→21:00)
[2017-08-06] MEDS: NICOTINE 14 MG/24 HR PATCH T-DERMAL SCH (09:37)
[2017-08-06] MEDS: RIFAXIMIN 550 MG TAB PO SCH ×2 (09:38→20:59)
[2017-08-06] MEDS: METOCLOPRAMIDE HCL 10 MG TAB PO SCH ×4 (09:38→20:59)
[2017-08-06] MEDS: PANTOPRAZOLE SOD 40 MG DELAYED RELEASE TAB PO SCH ×2 (09:38→20:59)
[2017-08-06] MEDS: MULTIVITAMIN TAB PO SCH (09:38)
[2017-08-06] MEDS: POTASSIUM CHLORIDE 20 MEQ CONTROLLED RELEASE TAB PO SCH ×2 (09:38→21:00)
[2017-08-06] MEDS: SPIRONOLACTONE 25 MG TAB PO SCH ×2 (09:38→13:15)
[2017-08-06] MEDS: THIAMINE HCL 100 MG TAB PO SCH (09:38)
[2017-08-06] MEDS: BUMETANIDE INJ 1 MG/4 ML VIAL IV PUSH SCH ×2 (09:48→17:52)
[2017-08-06 10:37] LABS: BICARBONATE 32.8 MEQ/L (21.0-32.0); CALCIUM 8.1 MG/DL (8.5-10.1); CREATININE 1.32 MG/DL (0.60-1.30)
--- NOTE | 2017-08-06 14:20 | HHI.PR ---
Subjective Remarks Follow-up visit acute kidney injury, hypokalemia, liver cirrhosis, bilateral lower extremity edema. Patient seen and examined today lying in bed. Reports he is doing well. Patient is requesting when he can eat. States his abdomen is a lot better, swelling on bilateral waist and pelvis area has improved. Denies pain and discomfort. Denies SOB/ dyspnea. Denies chest pain, palpitations, headaches, dizziness. Denies fevers, chills, n/v/d. Objective Vitals Vital Signs Date Time Temp Pulse Resp B/P (MAP) Pulse Ox O2 Delivery O2 Flow Rate FiO2 08/06/17 11:44 98.5 87 18 122/65 (84) 93 08/06/17 08:00 98.0 83 18 112/64 (80) 95 08/06/17 04:00 98.7 79 18 117/58 (77) 94 08/06/17 00:00 98.9 78 18 98/52 (67) 93 08/05/17 21:31 84 08/05/17 20:00 99.1 84 18 122/59 (80) 93 08/05/17 16:59 99.0 82 18 111/59 (76) 98 I/O 08/05/17 08/05/17 08/05/17 08/06/17 08/06/17 08/06/17 07:00 15:00 23:00 07:00 15:00 23:00 Intake Total 120 ml Output Total 1450 ml 2950 ml 1725 ml Balance -1330 ml -2950 ml -1725 ml Intake Oral 120 ml Output Urine Total 1450 ml 2950 ml 1725 ml # Voids 3 Result Diagram: 08/06/17 0940 Imaging Last Impressions Lower Extremity Ultrasound 07/25/17 0000 Signed Impressions: Service Date/Time: Tuesday, July 25, 2017 17:47 - CONCLUSION: Normal examination. Albert Walden MD Abdomen X-Ray 07/25/17 0000 Signed Impressions: Service Date/Time: Tuesday, July 25, 2017 09:35 - CONCLUSION: Nonspecific mildly distended small bowel. Some degree of ileus or obstruction can be considered. Nikko Mason MD Abdomen Ultrasound 07/25/17 0000 Signed Impressions: Service Date/Time: Tuesday, July 25, 2017 10:27 - CONCLUSION: Mild ascites. Nikko Mason MD Thoracic Spine MRI 07/22/17704 Signed Impressions: Service Date/Time: Saturday, July 22, 2017 12:06 - CONCLUSION: 1. Small bilateral pleural effusions. 2. Patent central canal. Caesar Shafer Jr., MD Lumbar Spine MRI 07/22/17704 Signed Impressions: Service Date/Time: Saturday, July 22, 2017 12:06 - CONCLUSION: 1. Mild degenerative disc disease at L2-L3. No spinal canal stenosis or neural foraminal stenosis is present. 2. Left upper quadrant varices. These were documented on prior CT from 06/29/4017 and are likely related to chronic liver disease/cirrhosis. Nikko Cote MD Cervical Spine MRI 07/22/17704 Signed Impressions: Service Date/Time: Saturday, July 22, 2017 12:06 - CONCLUSION: Degenerative disc disease at C5-C6 and C6-C7. However, no spinal canal stenosis or neural foraminal narrowing is present. Spinal cord demonstrates no abnormality. Nikko Cote MD Brain MRI 07/22/17704 Signed Impressions: Service Date/Time: Saturday, July 22, 2017 12:06 - CONCLUSION: Negative MRI of the brain for acute process. I do not see evidence for an ischemic event. Colten Nelson MD FACR Small Bowel X-Ray 07/10/17 0000 Signed Impressions: Service Date/Time: Monday, July 10, 2017 08:26 - CONCLUSION: 1. Diffuse small bowel dilatation and delayed small bowel transit time of approximately 5- 6 hours without focal transition point, intraluminal filling defect or gross mass. Findings are most consistent with moderate adynamic ileus. Bryson Downing MD Renal Ultrasound 07/10/17 0000 Signed Impressions: Service Date/Time: Monday, July 10, 2017 18:25 - CONCLUSION: 1. Unremarkable renal ultrasound. Mild ascites. Albert Walden MD Chest X-Ray 07/09/17 0600 Signed Impressions: Service Date/Time: July 06:10 - CONCLUSION: 1. Minimal basilar dependent density. Differential diagnosis includes atelectasis. Findings similar to prior exam. Albert Walden MD Chest CT 07/05/17 1635 Signed Impressions: Service Date/Time: Wednesday, July 05, 2017 18:11 - CONCLUSION: 1. Segmental consolidation with volume loss medial right lower lung. 2. Atelectasis or basilar consolidation left lower lung. 3. Mild amount of ascites. Caesar Ann MD Abdomen MRI 07/02/17 0000 Signed Impressions: Service Date/Time: June 16:34 - CONCLUSION: 1. Hepatomegaly and hepatic steatosis. No focal mass identified. 2. Moderate splenomegaly. 3. Small amount of ascites. 4. Small bilateral pleural effusions. Wilbert Howe MD Ankle X-Ray 07/01/17 0000 Signed Impressions: Service Date/Time: Saturday, July 01, 2017 10:22 - CONCLUSION: Soft tissue mass noted to be fluid filled on ultrasound 09/10/2012. Colten Nelson MD FACR Head CT 06/30/17 0000 Signed Impressions: Service Date/Time: Saturday, July 01, 2017 02:24 - CONCLUSION: 1. No acute intracranial abnormalities. Previous fixation left maxillary sinus. Albert Walden MD Cervical Spine CT 06/30/17 0000 Signed Impressions: Service Date/Time: Saturday, July 01, 2017 02:24 - CONCLUSION: Normal examination for a patient of this age. Albert Walden MD Abdomen/Pelvis CT 06/29/17 0000 Signed Impressions: Service Date/Time: Thursday, June 29, 2017 12:52 - CONCLUSION: 1. Hepatosplenomegaly and varices noted as above. 2. Atherosclerosis. 3. Abnormal diffuse heterogeneous appearance of the liver which may be related to either marked hepatic steatosis in an inhomogeneous fashion versus steatosis and underlying diffuse liver masses. An MRI of the abdomen with and without contrast may be helpful for further evaluation of this finding. Navjot Chirinos MD Objective Remarks GENERAL: This is a well-nourished, well-developed patient, in no apparent distress. SKIN: Warm and dry. HEENT: Normocephalic. Pupils equal round and reactive. Nose without bleeding. Airway patent. NECK: Trachea midline. CARDIOVASCULAR: Regular rate and rhythm without murmurs, gallops, or rubs. RESPIRATORY: Diminished bases. No wheezes, rales, or rhonchi. GASTROINTESTINAL: Abdomen soft, non-tender, nondistended. Bowel Sounds normoactive x4. MUSCULOSKELETAL: Extremities without clubbing, cyanosis. Bilateral lower ext +4 edema. Anasarca - improving NEUROLOGICAL: Awake and alert. Oriented to place, person. No focal neuro deficit. Moves all extremities. Normal speech. 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 Continue physical therapy. Continue to monitor for continued bowel movements and improvement in GI symptoms. DON, acute - non oliguric. Improving. - Nephrology following. Most likely ATN causing a KI. Normal size kidneys and has normal sodium and a urine. - Follow renal indices Hypokalemia - On Bumex 2 mg po bid with KCL 40mg BID - Potassium replacements when necessary - Monitor BMP Bilateral lower extremity edema, chronic - This is possibly due to liver cirrhosis. Continue Xifaxan - US Doppler negative for DVT - Impedes patient's mobility - On Bumex 2 mg by mouth twice a day with KCl. Will hold off Bumex by mouth and switch over to Bumex IV - Aldactone 25mg, may increase to 50mg if needed - Jerome wraps - Nephro recommends Bumex IV 2mg BID Hypertension, chronic - Controlled with Bumex - Clonidine PRN - Continue to Monitor BP Trend Liver cirrhosis GI Bleed - resolved Hepatic Encephalopathy- resolved - Etiology had been gastritis and duodenitis - Continue Protonix bid - Minimal ascites on US 07/25/17 - LFTs trended down and stabilizing - Resume diet as tolerated Generalized Weakness/Deconditioning Pain - continue PT- d/w him to be more active as tolerable - No payor source for SNF - Tramadol prn for pain, will not start NSAIDs with DON - Neurontin discontinued by neurology - Barrier includes need to do stair living in a trailer with steps and limited space. BLE and pain with ambulation - bumex increased and aldactone aded. Jerome wraps when OOB. ETOH Withdrawal -Resolved - Continue folic acid - Continue thiamine - Continue multivitamin Ileus - resolved Acute pancreatitis- lipase elevated 500s 07/28- lipase trending down- clinically improved - abdominal pain better, exam benign - tolerating regular diet DVT Prophylaxis SCDs (high bleed risk)- GIB-on presentation, high risk of bleeding, varices, thrombocytopenia from cirrhosis, continue ambulation with PT Discuss with patient, nursing, Dr. Hudson Discharge Planning No payor source. Placement issue. CM following. Plan to DC home when patient is able to maneuver stairs. Markus Vergara Aug 06, 2017 14:20
--- NOTE | 2017-08-06 17:10 | HHI.NPPN ---
Subjective History of Present Illness 51-year-old male with a past medical history of cirrhosis of the liver, bronchial asthma, depression, hyperlipidemia, pancreatitis, Menendez's esophagus, chronic abdominal pain, possible history of gastric ulcer and varices, questionable esophageal cancer who was admitted with abdominal pain and distension. I was called to see the patient because of elevated BUN and creatinine. Additional Remarks Patient is alert, no SOB, swelling in the legs slightly better. Review of Systems General Constitutional: Fatigue Respiratory Lungs: Wheeze Cardiovascular Cardiac: CORTES Gastrointestinal Gastrointestinal: Abdominal Pain Objective Data Data 08/06/17 08/07/17 19:00 07:00 Output Total 1725 ml Balance -1725 ml Output Urine Total 1725 ml Vital Signs Date Time Temp Pulse Resp B/P (MAP) Pulse Ox O2 Delivery O2 Flow Rate FiO2 08/06/17 15:35 98.5 100 18 137/75 (95) 93 08/06/17 11:44 98.5 87 18 122/65 (84) 93 08/06/17 08:00 98.0 83 18 112/64 (80) 95 08/06/17 04:00 98.7 79 18 117/58 (77) 94 08/06/17 00:00 98.9 78 18 98/52 (67) 93 08/05/17 21:31 84 08/05/17 20:00 99.1 84 18 122/59 (80) 93 -: 08/06/17 0940 Physical Exam General Appearance: No Acute Distress, Anxious Throat Throat Exam: Oral Mucosa [place] & Moist Neck Neck Exam: Neck Supple Pulmonary Resp Exam: Breath Sounds Equal, Rhonchi, Decreased Bases Cardiology CV Exam: Regular, Normal Sinus Rhythm Gastrointestinal/Abdomen GI Exam: Soft, Bowel Sounds Present, Distended Extremeties Extremities Exam: Moderate Edema, Pitting Edema Neurologic Neuro Exam: Alert, Awake, Oriented Assessment/Plan Assessment Summary: DON/Acute Renal Failure Problem List: (1) Acute kidney injury ICD Codes: N17.9 - Acute kidney failure, unspecified (2) Encephalopathy ICD Codes: G93.40 - Encephalopathy, unspecified (3) Anemia ICD Codes: D64.9 - Anemia, unspecified Status: Acute (4) Jaundice ICD Codes: R17 - Unspecified jaundice (5) Gastritis ICD Codes: K29.70 - Gastritis, unspecified, without bleeding Status: Acute (6) 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 Normal size kidneys and has Normal Na. in the urine. Urine Eosinophils is negative. Most likely has ATN causing DON. Has elevated Bilirubin. BP is stable, Follow the urine out put and BMP. Avoid Nephrotoxins. Need more diuresis, changed Bumex to IV, 2 mg BID. Also on Aldactone. Low Albumin also contributing to edema. Told to restrict salt and fluid intake. Creatinine is stable. Linette Guerra MD Aug 06, 2017 17:10
[2017-08-07] VITALS (7 sets, daily range): BP systolic 106–132; BP diastolic 59–68; PULSE 80–98; RESP 18–20; TEMP 98.3–98.7; O2SAT 92–98
[2017-08-07] MEDS: traMADol HCL 50 MG TAB PO PRN ×3 (05:33→17:06)
[2017-08-07] MEDS: BETHANECHOL CHL 25 MG TAB PO SCH ×3 (05:34→21:26)
[2017-08-07] MEDS: METOCLOPRAMIDE HCL 10 MG TAB PO SCH ×4 (08:00→21:25)
[2017-08-07 08:31] LABS: BICARBONATE 32.4 MEQ/L (21.0-32.0); CALCIUM 8.3 MG/DL (8.5-10.1); CREATININE 1.18 MG/DL (0.60-1.30)
[2017-08-07] MEDS: SODIUM CHLORIDE 0.9% FLUSH 10 ML FLUSH IV FLUSH SCH ×2 (08:33→21:00)
[2017-08-07] MEDS: REMOVE OLD PATCH T-DERMAL SCH (08:35)
[2017-08-07] MEDS: NICOTINE 14 MG/24 HR PATCH T-DERMAL SCH (08:35)
[2017-08-07] MEDS: POTASSIUM CHLORIDE 20 MEQ CONTROLLED RELEASE TAB PO SCH ×3 (08:36→17:05)
[2017-08-07] MEDS: MULTIVITAMIN TAB PO SCH (08:36)
[2017-08-07] MEDS: PANTOPRAZOLE SOD 40 MG DELAYED RELEASE TAB PO SCH ×2 (08:36→21:26)
[2017-08-07] MEDS: THIAMINE HCL 100 MG TAB PO SCH (08:36)
[2017-08-07] MEDS: RIFAXIMIN 550 MG TAB PO SCH ×2 (08:36→21:25)
[2017-08-07] MEDS: BUMETANIDE INJ 1 MG/4 ML VIAL IV PUSH SCH ×2 (08:37→17:06)
[2017-08-07] MEDS: SPIRONOLACTONE 25 MG TAB PO SCH ×2 (08:43→14:02)
[2017-08-07] MEDS: PSYLLIUM FIBER SF/GF 6 GM POWD PKT PO SCH ×2 (08:46→21:00)
--- NOTE | 2017-08-07 13:09 | HHI.HCPN ---
Reason for visit a. To assist with evaluation and management of symptoms including: pain, encephalopathy, and dyspnea b. To assist medical decision maker(s) with: better understanding of current medical conditions; weighing benefits/burdens of medical treatment options; making medical treatment decisions. . Subjective/Interval History Patient examined today, patient is resting in bed, he is awake, alert, and oriented x 3. The patient's lower extremity edema remains unresolved, he complains of ongoing pain, weakness, and swelling in BLE. He states there has been no improvement in his BLE edema however the edema located around his hips and abdomen has improved. Patient's BLE are red, edematous, and hot, there is no visible improvement. Advance Directives Health Care Surrogate: Copy in medical record Advance Directive Specifics Date completed: 07/13/17 . Health Care Surrogate(s): German Martin (son) [phone] Jeanine Salgado (former spouse) [phone] Documented care wishes: No known documented care wishes. . Objective Vital Signs Date Time Temp Pulse Resp B/P (MAP) Pulse Ox O2 Delivery O2 Flow Rate FiO2 08/07/17 07:53 98.4 83 18 113/68 (83) 92 08/07/17 04:00 98.6 83 18 106/59 (75) 93 08/07/17 00:40 95 08/07/17 00:00 98.3 98 18 117/60 (79) 98 08/06/17 20:00 98.3 93 18 109/59 (76) 92 08/06/17 15:35 98.5 100 18 137/75 (95) 93 Intake & Output 08/07/17 08/07/17 07:00 19:00 Output Total 950 ml Balance -950 ml Output Urine Total 950 ml # Bowel Movements 1 Physical Exam CONSTITUTIONAL/GENERAL: This is an adequately nourished, middle aged male in no acute distress. TUBES/LINES/DRAINS: PIV 1 EYES: Pupils equal and round. No injection or drainage. CARDIOVASCULAR: Regular rate and rhythm without murmurs, gallops, or rubs. No JVD. Peripheral pulses symmetric. RESPIRATORY/CHEST: Breath sounds clear, diminished bilaterally. GASTROINTESTINAL: Abdomen soft, nondistended, nontender to palpation. Active bowel sounds. MUSCULOSKELETAL: Extremities without clubbing, cyanosis. BLE 2+ pitting edema, red, and hot. No mottling or clubbing. NEUROLOGICAL: Alert and awake. Oriented x 3. Follows commands. PSYCHIATRIC: No obvious anxiety/depression. No apparent hallucinations or other psychotic thought process. . Diagnostic Tests Laboratory Laboratory Tests Test 08/05/17 07:52 08/06/17 09:40 08/07/17 06:24 Blood Urea Nitrogen 6 MG/DL (7-18) 6 MG/DL (7-18) 6 MG/DL (7-18) Creatinine 1.28 MG/DL (0.60-1.30) 1.32 MG/DL (0.60-1.30) 1.18 MG/DL (0.60-1.30) Random Glucose 98 MG/DL (74-106) 103 MG/DL (74-106) 83 MG/DL (74-106) Calcium Level 8.0 MG/DL (8.5-10.1) 8.1 MG/DL (8.5-10.1) 8.3 MG/DL (8.5-10.1) Sodium Level 136 MEQ/L (136-145) 136 MEQ/L (136-145) 137 MEQ/L (136-145) Potassium Level 3.1 MEQ/L (3.5-5.1) 3.4 MEQ/L (3.5-5.1) 3.2 MEQ/L (3.5-5.1) Chloride Level 97 MEQ/L (98-107) 97 MEQ/L (98-107) 96 MEQ/L (98-107) Carbon Dioxide Level 30.2 MEQ/L (21.0-32.0) 32.8 MEQ/L (21.0-32.0) 32.4 MEQ/L (21.0-32.0) Anion Gap 9 MEQ/L (5-15) 6 MEQ/L (5-15) 9 MEQ/L (5-15) Estimat Glomerular Filtration Rate 59 ML/MIN (>89) 57 ML/MIN (>89) 65 ML/MIN (>89) Lipase 146 U/L (73-393) Result Diagram: 08/07/17 0624 Procedures 06/30/17: EGD . Assessment and Plan Disease Oriented Problem List: (1) Gastrointestinal bleed (2) Esophageal varices (3) Menendez esophagus (4) Jaundice (5) Gastritis (6) Tobacco abuse Symptom Scale: (1) Pain (2) Dyspnea (3) Encephalopathy Pertinent Non-Medical Issues Psychosocial:Patient is originally from [facility]. He moved to [place] approximately 20 years ago. 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 Patient is but has 4 adult children from this marriage. (Andrzej, Abbey, Nikko and Sergio). Apparently he also has a 14-year- old daughter from a different relationship; she lives in [place]. Spiritual: Voodoo ariana Legal: None known. Ethical issues impacting care: No known ethical issues impacting care at this time . . Important Contacts Major ([facility]), son: [phone] Tea Calhoun, spouse/former spouse: [phone] Abbey, daughter [phone] Nikko, son, Sergio, son: [phone] . Prognosis Patient is a 51-year-old male with multiple comorbid conditions. He was admitted with suspected GI bleed, persistent ileus, liver cirrhosis/elevated LFTs, thrombocytopenia/coagulopathy and hepatic encephalopathy. Patient is not a candidate for liver transplant. He is at high risk for ongoing complications and decline. . Code Status: Full Code Plan * FULL CODE * Decision-making: Patient currently has the capacity to make informed medical decisions independently. He has previously designated his son German Martin ([facility]). * GOALS: Aggressive. Due to lack of payor source placement has been an issue, patient lives alone and is not safe to discharge home due to profound weakness. * Symptom management - encephalopathy: Resolved. No recommendations at this time. * Symptom management - dyspnea:Resolved. On room air. Duonebs 1 ampule q 2hr PRN for shortness of breath. No recommendations. * Symptom management- pain: Multifactorial, patient's abdominal pain is intermittent, now C/O generalized pain. Gabapentin 600mg TID and 900mg QHS. Patient reports improvement in pain following increase in QHS tramadol. No recommendations at this time. * Palliative care will continue to follow this patient throughout his hospitalization to establish trust, assist with symptom management and clarification of medical treatment goals. . Attestation To help prompt me to consider important information that might be impacting today's encounter and assessment, information from prior notes written by myself or my colleagues may have been "brought forward" into today's note. My signature on this note, however, is an attestation that I personally performed the exam, history, and/or decision-making noted today, and, unless otherwise indicated, the interactions with patient, family, and staff as well as the review of records all occurred today. I also attest that the listed assessment and stated plan reflect my best clinical judgment today based on the combination of historical information, prior notes, and today's exam/ interactions. When time spent is documented, it refers only to time spent today by the signer, or if indicated, combined time spent today by collaborating physician/nurse practitioner. Dinora Lock Aug 07, 2017 13:09
--- NOTE | 2017-08-07 13:09 | HHI.HCPN ---
Reason for visit a. To assist with evaluation and management of symptoms including: pain, encephalopathy, and dyspnea b. To assist medical decision maker(s) with: better understanding of current medical conditions; weighing benefits/burdens of medical treatment options; making medical treatment decisions. . Subjective/Interval History Patient examined today, patient is resting in bed, he is awake, alert, and oriented x 3. The patient's lower extremity edema remains unresolved, he complains of ongoing pain, weakness, and swelling in BLE. He states there has been no improvement in his BLE edema however the edema located around his hips and abdomen has improved. Patient's BLE are red, edematous, and hot, there is no visible improvement. Advance Directives Health Care Surrogate: Copy in medical record Advance Directive Specifics Date completed: 07/13/17 . Health Care Surrogate(s): German Martin (son) [phone] Jeanine Salgado (former spouse) [phone] Documented care wishes: No known documented care wishes. . Objective Vital Signs Date Time Temp Pulse Resp B/P (MAP) Pulse Ox O2 Delivery O2 Flow Rate FiO2 08/07/17 07:53 98.4 83 18 113/68 (83) 92 08/07/17 04:00 98.6 83 18 106/59 (75) 93 08/07/17 00:40 95 08/07/17 00:00 98.3 98 18 117/60 (79) 98 08/06/17 20:00 98.3 93 18 109/59 (76) 92 08/06/17 15:35 98.5 100 18 137/75 (95) 93 Intake & Output 08/07/17 08/07/17 07:00 19:00 Output Total 950 ml Balance -950 ml Output Urine Total 950 ml # Bowel Movements 1 Physical Exam CONSTITUTIONAL/GENERAL: This is an adequately nourished, middle aged male in no acute distress. TUBES/LINES/DRAINS: PIV 1 EYES: Pupils equal and round. No injection or drainage. CARDIOVASCULAR: Regular rate and rhythm without murmurs, gallops, or rubs. No JVD. Peripheral pulses symmetric. RESPIRATORY/CHEST: Breath sounds clear, diminished bilaterally. GASTROINTESTINAL: Abdomen soft, nondistended, nontender to palpation. Active bowel sounds. MUSCULOSKELETAL: Extremities without clubbing, cyanosis. BLE 2+ pitting edema, red, and hot. No mottling or clubbing. NEUROLOGICAL: Alert and awake. Oriented x 3. Follows commands. PSYCHIATRIC: No obvious anxiety/depression. No apparent hallucinations or other psychotic thought process. . Diagnostic Tests Laboratory Laboratory Tests Test 08/05/17 07:52 08/06/17 09:40 08/07/17 06:24 Blood Urea Nitrogen 6 MG/DL (7-18) 6 MG/DL (7-18) 6 MG/DL (7-18) Creatinine 1.28 MG/DL (0.60-1.30) 1.32 MG/DL (0.60-1.30) 1.18 MG/DL (0.60-1.30) Random Glucose 98 MG/DL (74-106) 103 MG/DL (74-106) 83 MG/DL (74-106) Calcium Level 8.0 MG/DL (8.5-10.1) 8.1 MG/DL (8.5-10.1) 8.3 MG/DL (8.5-10.1) Sodium Level 136 MEQ/L (136-145) 136 MEQ/L (136-145) 137 MEQ/L (136-145) Potassium Level 3.1 MEQ/L (3.5-5.1) 3.4 MEQ/L (3.5-5.1) 3.2 MEQ/L (3.5-5.1) Chloride Level 97 MEQ/L (98-107) 97 MEQ/L (98-107) 96 MEQ/L (98-107) Carbon Dioxide Level 30.2 MEQ/L (21.0-32.0) 32.8 MEQ/L (21.0-32.0) 32.4 MEQ/L (21.0-32.0) Anion Gap 9 MEQ/L (5-15) 6 MEQ/L (5-15) 9 MEQ/L (5-15) Estimat Glomerular Filtration Rate 59 ML/MIN (>89) 57 ML/MIN (>89) 65 ML/MIN (>89) Lipase 146 U/L (73-393) Result Diagram: 08/07/17 0624 Procedures 06/30/17: EGD . Assessment and Plan Disease Oriented Problem List: (1) Gastrointestinal bleed (2) Esophageal varices (3) Menendez esophagus (4) Jaundice (5) Gastritis (6) Tobacco abuse Symptom Scale: (1) Pain (2) Dyspnea (3) Encephalopathy Pertinent Non-Medical Issues Psychosocial:Patient is originally from [facility]. He moved to [place] approximately 20 years ago. 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 Patient is but has 4 adult children from this marriage. (Andrzej, Abbey, Nikko and Sergio). Apparently he also has a 14-year- old daughter from a different relationship; she lives in [place]. Spiritual: Christianity ariana Legal: None known. Ethical issues impacting care: No known ethical issues impacting care at this time . . Important Contacts Major ([facility]), son: [phone] Tea Calhoun, spouse/former spouse: [phone] Abbey, daughter [phone] Nikko, son, Sergio, son: [phone] . Prognosis Patient is a 51-year-old male with multiple comorbid conditions. He was admitted with suspected GI bleed, persistent ileus, liver cirrhosis/elevated LFTs, thrombocytopenia/coagulopathy and hepatic encephalopathy. Patient is not a candidate for liver transplant. He is at high risk for ongoing complications and decline. . Code Status: Full Code Plan * FULL CODE * Decision-making: Patient currently has the capacity to make informed medical decisions independently. He has previously designated his son German Martin ([facility]). * GOALS: Aggressive. Due to lack of payor source placement has been an issue, patient lives alone and is not safe to discharge home due to profound weakness. * Symptom management - encephalopathy: Resolved. No recommendations at this time. * Symptom management - dyspnea:Resolved. On room air. Duonebs 1 ampule q 2hr PRN for shortness of breath. No recommendations. * Symptom management- pain: Multifactorial, patient's abdominal pain is intermittent, now C/O generalized pain. Gabapentin 600mg TID and 900mg QHS. Patient reports improvement in pain following increase in QHS tramadol. No recommendations at this time. * Palliative care will continue to follow this patient throughout his hospitalization to establish trust, assist with symptom management and clarification of medical treatment goals. . Attestation To help prompt me to consider important information that might be impacting today's encounter and assessment, information from prior notes written by myself or my colleagues may have been "brought forward" into today's note. My signature on this note, however, is an attestation that I personally performed the exam, history, and/or decision-making noted today, and, unless otherwise indicated, the interactions with patient, family, and staff as well as the review of records all occurred today. I also attest that the listed assessment and stated plan reflect my best clinical judgment today based on the combination of historical information, prior notes, and today's exam/ interactions. When time spent is documented, it refers only to time spent today by the signer, or if indicated, combined time spent today by collaborating physician/nurse practitioner. Dinora Lock Aug 07, 2017 13:09
--- NOTE | 2017-08-07 13:09 | HHI.HCPN ---
Reason for visit a. To assist with evaluation and management of symptoms including: pain, encephalopathy, and dyspnea b. To assist medical decision maker(s) with: better understanding of current medical conditions; weighing benefits/burdens of medical treatment options; making medical treatment decisions. . Subjective/Interval History Patient examined today, patient is resting in bed, he is awake, alert, and oriented x 3. The patient's lower extremity edema remains unresolved, he complains of ongoing pain, weakness, and swelling in BLE. He states there has been no improvement in his BLE edema however the edema located around his hips and abdomen has improved. Patient's BLE are red, edematous, and hot, there is no visible improvement. Advance Directives Health Care Surrogate: Copy in medical record Advance Directive Specifics Date completed: 07/13/17 . Health Care Surrogate(s): German Martin (son) [phone] Jeanine Salgado (former spouse) [phone] Documented care wishes: No known documented care wishes. . Objective Vital Signs Date Time Temp Pulse Resp B/P (MAP) Pulse Ox O2 Delivery O2 Flow Rate FiO2 08/07/17 07:53 98.4 83 18 113/68 (83) 92 08/07/17 04:00 98.6 83 18 106/59 (75) 93 08/07/17 00:40 95 08/07/17 00:00 98.3 98 18 117/60 (79) 98 08/06/17 20:00 98.3 93 18 109/59 (76) 92 08/06/17 15:35 98.5 100 18 137/75 (95) 93 Intake & Output 08/07/17 08/07/17 07:00 19:00 Output Total 950 ml Balance -950 ml Output Urine Total 950 ml # Bowel Movements 1 Physical Exam CONSTITUTIONAL/GENERAL: This is an adequately nourished, middle aged male in no acute distress. TUBES/LINES/DRAINS: PIV 1 EYES: Pupils equal and round. No injection or drainage. CARDIOVASCULAR: Regular rate and rhythm without murmurs, gallops, or rubs. No JVD. Peripheral pulses symmetric. RESPIRATORY/CHEST: Breath sounds clear, diminished bilaterally. GASTROINTESTINAL: Abdomen soft, nondistended, nontender to palpation. Active bowel sounds. MUSCULOSKELETAL: Extremities without clubbing, cyanosis. BLE 2+ pitting edema, red, and hot. No mottling or clubbing. NEUROLOGICAL: Alert and awake. Oriented x 3. Follows commands. PSYCHIATRIC: No obvious anxiety/depression. No apparent hallucinations or other psychotic thought process. . Diagnostic Tests Laboratory Laboratory Tests Test 08/05/17 07:52 08/06/17 09:40 08/07/17 06:24 Blood Urea Nitrogen 6 MG/DL (7-18) 6 MG/DL (7-18) 6 MG/DL (7-18) Creatinine 1.28 MG/DL (0.60-1.30) 1.32 MG/DL (0.60-1.30) 1.18 MG/DL (0.60-1.30) Random Glucose 98 MG/DL (74-106) 103 MG/DL (74-106) 83 MG/DL (74-106) Calcium Level 8.0 MG/DL (8.5-10.1) 8.1 MG/DL (8.5-10.1) 8.3 MG/DL (8.5-10.1) Sodium Level 136 MEQ/L (136-145) 136 MEQ/L (136-145) 137 MEQ/L (136-145) Potassium Level 3.1 MEQ/L (3.5-5.1) 3.4 MEQ/L (3.5-5.1) 3.2 MEQ/L (3.5-5.1) Chloride Level 97 MEQ/L (98-107) 97 MEQ/L (98-107) 96 MEQ/L (98-107) Carbon Dioxide Level 30.2 MEQ/L (21.0-32.0) 32.8 MEQ/L (21.0-32.0) 32.4 MEQ/L (21.0-32.0) Anion Gap 9 MEQ/L (5-15) 6 MEQ/L (5-15) 9 MEQ/L (5-15) Estimat Glomerular Filtration Rate 59 ML/MIN (>89) 57 ML/MIN (>89) 65 ML/MIN (>89) Lipase 146 U/L (73-393) Result Diagram: 08/07/17 0624 Procedures 06/30/17: EGD . Assessment and Plan Disease Oriented Problem List: (1) Gastrointestinal bleed (2) Esophageal varices (3) Menendez esophagus (4) Jaundice (5) Gastritis (6) Tobacco abuse Symptom Scale: (1) Pain (2) Dyspnea (3) Encephalopathy Pertinent Non-Medical Issues Psychosocial:Patient is originally from [facility] [address]. He moved to [place] approximately 20 years ago. 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 Patient is but has 4 adult children from this marriage. (Andrzej, Abbey, Nikko and Sergio). Apparently he also has a 14-year- old daughter from a different relationship; she lives in [place]. Spiritual: Anglican ariana Legal: None known. Ethical issues impacting care: No known ethical issues impacting care at this time . . Important Contacts Major ([facility]), son: [phone] Tea Calhoun, spouse/former spouse: [phone] Abbey, daughter [phone] Nikko, son, Sergio, son: [phone] . Prognosis Patient is a 51-year-old male with multiple comorbid conditions. He was admitted with suspected GI bleed, persistent ileus, liver cirrhosis/elevated LFTs, thrombocytopenia/coagulopathy and hepatic encephalopathy. Patient is not a candidate for liver transplant. He is at high risk for ongoing complications and decline. . Code Status: Full Code Plan * FULL CODE * Decision-making: Patient currently has the capacity to make informed medical decisions independently. He has previously designated his son German Martin ([facility]). * GOALS: Aggressive. Due to lack of payor source placement has been an issue, patient lives alone and is not safe to discharge home due to profound weakness. * Symptom management - encephalopathy: Resolved. No recommendations at this time. * Symptom management - dyspnea:Resolved. On room air. Duonebs 1 ampule q 2hr PRN for shortness of breath. No recommendations. * Symptom management- pain: Multifactorial, patient's abdominal pain is intermittent, now C/O generalized pain. Gabapentin 600mg TID and 900mg QHS. Patient reports improvement in pain following increase in QHS tramadol. No recommendations at this time. * Palliative care will continue to follow this patient throughout his hospitalization to establish trust, assist with symptom management and clarification of medical treatment goals. . Attestation To help prompt me to consider important information that might be impacting today's encounter and assessment, information from prior notes written by myself or my colleagues may have been "brought forward" into today's note. My signature on this note, however, is an attestation that I personally performed the exam, history, and/or decision-making noted today, and, unless otherwise indicated, the interactions with patient, family, and staff as well as the review of records all occurred today. I also attest that the listed assessment and stated plan reflect my best clinical judgment today based on the combination of historical information, prior notes, and today's exam/ interactions. When time spent is documented, it refers only to time spent today by the signer, or if indicated, combined time spent today by collaborating physician/nurse practitioner. Dinora Lock Aug 07, 2017 13:09
--- NOTE | 2017-08-07 15:37 | HHI.NPPN ---
Subjective History of Present Illness 51-year-old male with a past medical history of cirrhosis of the liver, bronchial asthma, depression, hyperlipidemia, pancreatitis, Menendez's esophagus, chronic abdominal pain, possible history of gastric ulcer and varices, questionable esophageal cancer who was admitted with abdominal pain and distension. I was called to see the patient because of elevated BUN and creatinine. Additional Remarks Patient is alert, no SOB, has good urine out put, no SOB. Review of Systems General Constitutional: Fatigue Respiratory Lungs: Wheeze Cardiovascular Cardiac: CORTES Gastrointestinal Gastrointestinal: Abdominal Pain Objective Data Data Vital Signs Date Time Temp Pulse Resp B/P (MAP) Pulse Ox O2 Delivery O2 Flow Rate FiO2 08/07/17 07:53 98.4 83 18 113/68 (83) 92 08/07/17 04:00 98.6 83 18 106/59 (75) 93 08/07/17 00:40 95 08/07/17 00:00 98.3 98 18 117/60 (79) 98 08/06/17 20:00 98.3 93 18 109/59 (76) 92 -: 08/07/17 0624 Physical Exam General Appearance: No Acute Distress, Anxious Throat Throat Exam: Oral Mucosa [place] & Moist Neck Neck Exam: Neck Supple Pulmonary Resp Exam: Breath Sounds Equal, Rhonchi, Decreased Bases Cardiology CV Exam: Regular, Normal Sinus Rhythm Gastrointestinal/Abdomen GI Exam: Soft, Bowel Sounds Present, Distended Extremeties Extremities Exam: Moderate Edema, Pitting Edema Neurologic Neuro Exam: Alert, Awake, Oriented Assessment/Plan Assessment Summary: DON/Acute Renal Failure Problem List: (1) Acute kidney injury ICD Codes: N17.9 - Acute kidney failure, unspecified (2) Encephalopathy ICD Codes: G93.40 - Encephalopathy, unspecified (3) Anemia ICD Codes: D64.9 - Anemia, unspecified Status: Acute (4) Jaundice ICD Codes: R17 - Unspecified jaundice (5) Gastritis ICD Codes: K29.70 - Gastritis, unspecified, without bleeding Status: Acute (6) 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 Normal size kidneys and has Normal Na. in the urine. Urine Eosinophils is negative. Most likely has ATN causing DON. Has elevated Bilirubin. BP is stable, Follow the urine out put and BMP. Avoid Nephrotoxins. Need more diuresis, changed Bumex to IV, 2 mg BID. Also on Aldactone. Low Albumin also contributing to edema. Told to restrict salt and fluid intake. Creatinine is improving, check daily weight. Linette Guerra MD Aug 07, 2017 15:37
--- NOTE | 2017-08-07 16:31 | HHI.PR ---
Subjective Remarks Follow-up visit acute kidney injury, hypokalemia, liver cirrhosis, bilateral lower extremity edema. Patient seen and examined today lying in bed. Reports he is doing well. Patient states that he started on diet yesterday but still has some nausea after eating, no vomiting. Patient states that his waist, abdomen, bilateral hips have decreased in size with the diuretics. Denies pain and discomfort. Denies SOB/ dyspnea. Denies chest pain, palpitations, headaches, dizziness. Denies fevers, chills, diarrhea. Objective Vitals Vital Signs Date Time Temp Pulse Resp B/P (MAP) Pulse Ox O2 Delivery O2 Flow Rate FiO2 08/07/17 15:38 98.3 85 18 128/62 (84) 95 08/07/17 12:00 98.4 80 18 125/61 (82) 08/07/17 07:53 98.4 83 18 113/68 (83) 92 08/07/17 04:00 98.6 83 18 106/59 (75) 93 08/07/17 00:40 95 08/07/17 00:00 98.3 98 18 117/60 (79) 98 08/06/17 20:00 98.3 93 18 109/59 (76) 92 I/O 08/06/17 08/06/17 08/06/17 08/07/17 08/07/17 08/07/17 07:00 15:00 23:00 07:00 15:00 23:00 Output Total 1725 ml 950 ml Balance -1725 ml -950 ml Output Urine Total 1725 ml 950 ml # Voids 3 # Bowel Movements 1 Result Diagram: 08/07/17 0624 Imaging Last Impressions Lower Extremity Ultrasound 07/25/17 0000 Signed Impressions: Service Date/Time: Tuesday, July 25, 2017 17:47 - CONCLUSION: Normal examination. Albert Walden MD Abdomen X-Ray 07/25/17 0000 Signed Impressions: Service Date/Time: Tuesday, July 25, 2017 09:35 - CONCLUSION: Nonspecific mildly distended small bowel. Some degree of ileus or obstruction can be considered. Nikko Mason MD Abdomen Ultrasound 07/25/17 0000 Signed Impressions: Service Date/Time: Tuesday, July 25, 2017 10:27 - CONCLUSION: Mild ascites. Nikko Mason MD Thoracic Spine MRI 07/22/17704 Signed Impressions: Service Date/Time: Saturday, July 22, 2017 12:06 - CONCLUSION: 1. Small bilateral pleural effusions. 2. Patent central canal. Caesar Shafer Jr., MD Lumbar Spine MRI 07/22/17704 Signed Impressions: Service Date/Time: Saturday, July 22, 2017 12:06 - CONCLUSION: 1. Mild degenerative disc disease at L2-L3. No spinal canal stenosis or neural foraminal stenosis is present. 2. Left upper quadrant varices. These were documented on prior CT from 06/29/4017 and are likely related to chronic liver disease/cirrhosis. Nikko Cote MD Cervical Spine MRI 07/22/17704 Signed Impressions: Service Date/Time: Saturday, July 22, 2017 12:06 - CONCLUSION: Degenerative disc disease at C5-C6 and C6-C7. However, no spinal canal stenosis or neural foraminal narrowing is present. Spinal cord demonstrates no abnormality. Nikko Cote MD Brain MRI 07/22/17704 Signed Impressions: Service Date/Time: Saturday, July 22, 2017 12:06 - CONCLUSION: Negative MRI of the brain for acute process. I do not see evidence for an ischemic event. Colten Nelson MD FACR Small Bowel X-Ray 07/10/17 0000 Signed Impressions: Service Date/Time: Monday, July 10, 2017 08:26 - CONCLUSION: 1. Diffuse small bowel dilatation and delayed small bowel transit time of approximately 5- 6 hours without focal transition point, intraluminal filling defect or gross mass. Findings are most consistent with moderate adynamic ileus. Bryson Downing MD Renal Ultrasound 07/10/17 0000 Signed Impressions: Service Date/Time: Monday, July 10, 2017 18:25 - CONCLUSION: 1. Unremarkable renal ultrasound. Mild ascites. Albert Walden MD Chest X-Ray 07/09/17 0600 Signed Impressions: Service Date/Time: July 06:10 - CONCLUSION: 1. Minimal basilar dependent density. Differential diagnosis includes atelectasis. Findings similar to prior exam. Albert Walden MD Chest CT 07/05/17 1635 Signed Impressions: Service Date/Time: Wednesday, July 05, 2017 18:11 - CONCLUSION: 1. Segmental consolidation with volume loss medial right lower lung. 2. Atelectasis or basilar consolidation left lower lung. 3. Mild amount of ascites. Caesar Ann MD Abdomen MRI 07/02/17 0000 Signed Impressions: Service Date/Time: June 16:34 - CONCLUSION: 1. Hepatomegaly and hepatic steatosis. No focal mass identified. 2. Moderate splenomegaly. 3. Small amount of ascites. 4. Small bilateral pleural effusions. Wilbert Howe MD Ankle X-Ray 07/01/17 0000 Signed Impressions: Service Date/Time: Saturday, July 01, 2017 10:22 - CONCLUSION: Soft tissue mass noted to be fluid filled on ultrasound 09/10/2012. Colten Nelson MD FACR Head CT 06/30/17 0000 Signed Impressions: Service Date/Time: Saturday, July 01, 2017 02:24 - CONCLUSION: 1. No acute intracranial abnormalities. Previous fixation left maxillary sinus. Albert Walden MD Cervical Spine CT 06/30/17 0000 Signed Impressions: Service Date/Time: Saturday, July 01, 2017 02:24 - CONCLUSION: Normal examination for a patient of this age. Albert Walden MD Abdomen/Pelvis CT 06/29/17 0000 Signed Impressions: Service Date/Time: Thursday, June 29, 2017 12:52 - CONCLUSION: 1. Hepatosplenomegaly and varices noted as above. 2. Atherosclerosis. 3. Abnormal diffuse heterogeneous appearance of the liver which may be related to either marked hepatic steatosis in an inhomogeneous fashion versus steatosis and underlying diffuse liver masses. An MRI of the abdomen with and without contrast may be helpful for further evaluation of this finding. Navjot Chirinos MD Objective Remarks GENERAL: This is a well-nourished, well-developed patient, in no apparent distress. SKIN: Warm and dry. HEENT: Normocephalic. Pupils equal round and reactive. Nose without bleeding. Airway patent. NECK: Trachea midline. CARDIOVASCULAR: Regular rate and rhythm without murmurs, gallops, or rubs. RESPIRATORY: Diminished bases. No wheezes, rales, or rhonchi. GASTROINTESTINAL: Abdomen soft, non-tender, nondistended. Bowel Sounds normoactive x4. MUSCULOSKELETAL: Extremities without clubbing, cyanosis. Bilateral lower ext +4 edema. Anasarca - improving NEUROLOGICAL: Awake and alert. Oriented to place, person. No focal neuro deficit. Moves all extremities. Normal speech. 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 Continue physical therapy. Continue to monitor for continued bowel movements and improvement in GI symptoms. Liver cirrhosis GI Bleed - resolved Hepatic Encephalopathy- resolved - Etiology had been gastritis and duodenitis - Continue Protonix bid - Minimal ascites on US 07/25/17 - LFTs trended down and stabilizing - Resume diet as tolerated DON, acute - non oliguric. Improving. - Nephrology following. Most likely ATN causing a KI. Normal size kidneys and has normal sodium and a urine. - Follow renal indices Hypokalemia - On Bumex 2 mg IV with KCL 40mg TID - Potassium replacements when necessary - Monitor BMP Bilateral lower extremity edema, chronic - This is possibly due to liver cirrhosis. Continue Xifaxan - US Doppler negative for DVT - Impedes patient's mobility - Bumex switch over to Bumex IV - Increase Aldactone 50mg - Jerome wraps - Nephro recommends Bumex IV 2mg BID - Improving Hypertension, chronic - Controlled with Bumex - Clonidine PRN - Continue to Monitor BP Trend Generalized Weakness/Deconditioning Pain - continue PT- d/w him to be more active as tolerable - No payor source for SNF - Tramadol prn for pain, will not start NSAIDs with DON - Neurontin discontinued by neurology - Barrier includes need to do stair living in a trailer with steps and limited space. BLE and pain with ambulation - bumex increased and aldactone added. - Jerome wraps when OOB. - Plan for ramp placement at home ETOH Withdrawal - Resolved - Continue folic acid - Continue thiamine - Continue multivitamin Ileus - resolved Acute pancreatitis- lipase elevated 500s 07/28- lipase trending down- clinically improved - abdominal pain better, exam benign - tolerating regular diet DVT Prophylaxis SCDs (high bleed risk)- GIB-on presentation, high risk of bleeding, varices, thrombocytopenia from cirrhosis, continue ambulation with PT Discuss with patient, nursing, Dr. Hudson Discharge Planning No payor source. Placement issue. CM following. Plan to DC home when patient is able to maneuver stairs. Placement of ramp. Markus Vergara [facility] Aug 07, 2017 16:31
[2017-08-08] VITALS (7 sets, daily range): BP systolic 124–149; BP diastolic 61–78; PULSE 77–88; RESP 18–20; TEMP 97.6–99.4; O2SAT 93–98
[2017-08-08] MEDS: traMADol HCL 50 MG TAB PO PRN ×4 (00:14→17:52)
[2017-08-08] MEDS: BETHANECHOL CHL 25 MG TAB PO SCH ×3 (06:14→21:30)
[2017-08-08 08:12] LABS: HEMOGLOBIN 9.7 GM/DL (13.0-17.0); MEAN CELL VOLUME 98.9 FL (80.0-100.0); MEAN CORPUSCULAR HEMOGLOBIN 34.1 PG (27.0-34.0); MEAN CORPUSCULAR HGB CONC 34.5 % (32.0-36.0); PLATELET COUNT 105 TH/MM3 (150-450); RED BLOOD COUNT 2.83 MIL/MM3 (4.50-5.90); RED CELL DISTRIBUTION WIDTH 14.7 % (11.6-17.2); WHITE BLOOD COUNT 3.7 TH/MM3 (4.0-11.0)
[2017-08-08] MEDS: BUMETANIDE INJ 1 MG/4 ML VIAL IV PUSH SCH ×2 (08:31→17:45)
[2017-08-08] MEDS: METOCLOPRAMIDE HCL 10 MG TAB PO SCH ×4 (08:31→21:14)
[2017-08-08] MEDS: THIAMINE HCL 100 MG TAB PO SCH (08:31)
[2017-08-08] MEDS: RIFAXIMIN 550 MG TAB PO SCH ×2 (08:32→21:14)
[2017-08-08] MEDS: PANTOPRAZOLE SOD 40 MG DELAYED RELEASE TAB PO SCH ×2 (08:32→21:15)
[2017-08-08] MEDS: SPIRONOLACTONE 25 MG TAB PO SCH ×2 (08:32→14:14)
[2017-08-08] MEDS: POTASSIUM CHLORIDE 20 MEQ CONTROLLED RELEASE TAB PO SCH ×3 (08:32→17:45)
[2017-08-08] MEDS: PSYLLIUM FIBER SF/GF 6 GM POWD PKT PO SCH ×2 (08:32→21:00)
[2017-08-08] MEDS: MULTIVITAMIN TAB PO SCH (08:32)
[2017-08-08] MEDS: NICOTINE 14 MG/24 HR PATCH T-DERMAL SCH (08:33)
[2017-08-08] MEDS: REMOVE OLD PATCH T-DERMAL SCH (08:33)
[2017-08-08] MEDS: SODIUM CHLORIDE 0.9% FLUSH 10 ML FLUSH IV FLUSH SCH ×2 (08:34→21:00)
[2017-08-08 08:43] LABS: ALBUMIN 2.6 GM/DL (3.4-5.0); BICARBONATE 31.3 MEQ/L (21.0-32.0); CALCIUM 8.3 MG/DL (8.5-10.1); CREATININE 1.29 MG/DL (0.60-1.30); DIRECT BILIRUBIN ADULT 0.9 MG/DL (0.0-0.2)
[2017-08-08 08:45] LABS: INDIRECT BILIRUBIN 0.6 MG/DL (0.0-0.8); TOTAL BILIRUBIN ADULT 1.5 MG/DL (0.2-1.0); TOTAL PROTEIN 6.7 GM/DL (6.4-8.2)
--- NOTE | 2017-08-08 09:12 | HHI.PR ---
Subjective Remarks Patient seen and examined this morning. Vitals are stable and the patient is afebrile. He denies difficulty breathing or chest pain, wants me to check his left heel. Diet increased yesterday, reports he ate fish yest and toast and eggs this am. Experienced some nausea. Overall is well without any complaints. Objective Vital Signs Date Time Temp Pulse Resp B/P (MAP) Pulse Ox O2 Delivery O2 Flow Rate FiO2 08/08/17 04:00 98.5 87 18 128/65 (86) 94 08/08/17 03:24 82 08/08/17 00:00 98.6 84 18 127/66 (86) 93 08/07/17 19:52 98.7 88 20 132/67 (88) 95 08/07/17 15:38 98.3 85 18 128/62 (84) 95 08/07/17 12:00 98.4 80 18 125/61 (82) I/O 08/07/17 08/07/17 08/07/17 08/08/17 08/08/17 08/08/17 06:59 14:59 22:59 06:59 14:59 22:59 Output Total 950 ml 1000 ml Balance -950 ml -1000 ml Output Urine Total 950 ml 1000 ml # Bowel Movements 1 Result Diagram: 08/08/17 0642 08/08/1742 Imaging Last Impressions Lower Extremity Ultrasound 07/25/17 0000 Signed Impressions: Service Date/Time: Tuesday, July 25, 2017 17:47 - CONCLUSION: Normal examination. Albert Walden MD Abdomen X-Ray 07/25/17 0000 Signed Impressions: Service Date/Time: Tuesday, July 25, 2017 09:35 - CONCLUSION: Nonspecific mildly distended small bowel. Some degree of ileus or obstruction can be considered. Nikko Mason MD Abdomen Ultrasound 07/25/17 0000 Signed Impressions: Service Date/Time: Tuesday, July 25, 2017 10:27 - CONCLUSION: Mild ascites. Nikko Mason MD Thoracic Spine MRI 07/22/17704 Signed Impressions: Service Date/Time: Saturday, July 22, 2017 12:06 - CONCLUSION: 1. Small bilateral pleural effusions. 2. Patent central canal. Caesar Shafer Jr., MD Lumbar Spine MRI 07/22/17704 Signed Impressions: Service Date/Time: Saturday, July 22, 2017 12:06 - CONCLUSION: 1. Mild degenerative disc disease at L2-L3. No spinal canal stenosis or neural foraminal stenosis is present. 2. Left upper quadrant varices. These were documented on prior CT from 06/29/4017 and are likely related to chronic liver disease/cirrhosis. Nikko Cote MD Cervical Spine MRI 07/22/1705 Signed Impressions: Service Date/Time: Saturday, July 22, 2017 12:06 - CONCLUSION: Degenerative disc disease at C5-C6 and C6-C7. However, no spinal canal stenosis or neural foraminal narrowing is present. Spinal cord demonstrates no abnormality. Nikko Cote MD Brain MRI 07/22/17704 Signed Impressions: Service Date/Time: Saturday, July 22, 2017 12:06 - CONCLUSION: Negative MRI of the brain for acute process. I do not see evidence for an ischemic event. Colten Nelson MD FACR Small Bowel X-Ray 07/10/17 0000 Signed Impressions: Service Date/Time: Monday, July 10, 2017 08:26 - CONCLUSION: 1. Diffuse small bowel dilatation and delayed small bowel transit time of approximately 5- 6 hours without focal transition point, intraluminal filling defect or gross mass. Findings are most consistent with moderate adynamic ileus. Bryson Downing MD Renal Ultrasound 07/10/17 0000 Signed Impressions: Service Date/Time: Monday, July 10, 2017 18:25 - CONCLUSION: 1. Unremarkable renal ultrasound. Mild ascites. Albert Walden MD Chest X-Ray 07/09/17 0600 Signed Impressions: Service Date/Time: July 06:10 - CONCLUSION: 1. Minimal basilar dependent density. Differential diagnosis includes atelectasis. Findings similar to prior exam. Albert Walden MD Chest CT 07/05/17 1635 Signed Impressions: Service Date/Time: Wednesday, July 05, 2017 18:11 - CONCLUSION: 1. Segmental consolidation with volume loss medial right lower lung. 2. Atelectasis or basilar consolidation left lower lung. 3. Mild amount of ascites. Caesar Ann MD Abdomen MRI 07/02/17 0000 Signed Impressions: Service Date/Time: June 16:34 - CONCLUSION: 1. Hepatomegaly and hepatic steatosis. No focal mass identified. 2. Moderate splenomegaly. 3. Small amount of ascites. 4. Small bilateral pleural effusions. Wilbert Howe MD Ankle X-Ray 07/01/17 0000 Signed Impressions: Service Date/Time: Saturday, July 01, 2017 10:22 - CONCLUSION: Soft tissue mass noted to be fluid filled on ultrasound 09/10/2012. Colten Nelson MD FACR Head CT 06/30/17 0000 Signed Impressions: Service Date/Time: Saturday, July 01, 2017 02:24 - CONCLUSION: 1. No acute intracranial abnormalities. Previous fixation left maxillary sinus. Albert Walden MD Cervical Spine CT 06/30/17 0000 Signed Impressions: Service Date/Time: Saturday, July 01, 2017 02:24 - CONCLUSION: Normal examination for a patient of this age. Albert Walden MD Abdomen/Pelvis CT 06/29/17 0000 Signed Impressions: Service Date/Time: Thursday, June 29, 2017 12:52 - CONCLUSION: 1. Hepatosplenomegaly and varices noted as above. 2. Atherosclerosis. 3. Abnormal diffuse heterogeneous appearance of the liver which may be related to either marked hepatic steatosis in an inhomogeneous fashion versus steatosis and underlying diffuse liver masses. An MRI of the abdomen with and without contrast may be helpful for further evaluation of this finding. Navjot Chirinos MD Objective Remarks GENERAL: well appearing, laying in bed SKIN: Warm and dry. Healed wound with black scab left heel. HEAD: Normocephalic. EYES: No scleral icterus. No injection or drainage. NECK: Supple, trachea midline. No JVD or lymphadenopathy. CARDIOVASCULAR: Regular rate and rhythm without murmurs, gallops, or rubs. RESPIRATORY: Breath sounds equal bilaterally. No accessory muscle use. GASTROINTESTINAL: Abdomen soft, non-tender, nondistended. MUSCULOSKELETAL: Bilat LE with trace pitting edema, tender to touch. . A/P Problem List: (1) Gastritis ICD Code: K29.70 - Gastritis, unspecified, without bleeding Status: Acute (2) Acute kidney injury ICD Code: N17.9 - Acute kidney failure, unspecified (3) Physical deconditioning ICD Code: R53.81 - Other malaise (4) Gastrointestinal bleed ICD Code: K92.2 - Gastrointestinal hemorrhage, unspecified Assessment and Plan Patient is 51 year old male admitted with ETOH withdraw and Ileus. Continue physical therapy. Continue to monitor for continued bowel movements and improvement in GI symptoms. Palliative care has seen and evaluated the patient. He has been noted to have capacity. His goals remain aggressive. The patient lives alone and is not safe to be discharged home due to significant weakness. Liver cirrhosis GI Bleed - resolved Hepatic Encephalopathy- resolved - Etiology had been gastritis and duodenitis - Continue Protonix bid - Minimal ascites on US 07/25/17 - LFTs trended down and stabilizing - Resume diet as tolerated DON, acute - non oliguric. Improving. - Nephrology following. Most likely ATN causing a KI. Normal size kidneys and has normal sodium and a urine. Negative urine eosinophils. The more diuresis, change Bumex to IV 2 mg twice a day. Aldactone added. Low albumin contributing to edema. Restrict salt and fluid intake. Daily weight. - Follow renal indices Hypokalemia - On Bumex 2 mg IV with KCL 40mg TID - Potassium replacements when necessary - Monitor BMP Bilateral lower extremity edema, chronic - This is possibly due to liver cirrhosis. Continue Xifaxan - US Doppler negative for DVT - Impedes patient's mobility - Increase Aldactone 50mg - Jerome wraps - Nephro recommends Bumex IV 2mg BID - Improving Hypertension, chronic - Controlled with Bumex - Clonidine PRN - Continue to Monitor BP Trend Generalized Weakness/Deconditioning Pain - continue PT- d/w him to be more active as tolerable - No payor source for SNF - Tramadol prn for pain, will not start NSAIDs with DON - Neurontin discontinued by neurology - Barrier includes need to do stair living in a trailer with steps and limited space. BLE and pain with ambulation - bumex increased and aldactone added. - Jerome wraps when OOB. - Plan for ramp placement at home ETOH Withdrawal - Resolved - Continue folic acid - Continue thiamine - Continue multivitamin Ileus - resolved Acute pancreatitis- lipase elevated 500s 07/28- lipase trending down- clinically improved - abdominal pain better, exam benign - tolerating regular diet DVT Prophylaxis SCDs (high bleed risk)- GIB-on presentation, high risk of bleeding, varices, thrombocytopenia from cirrhosis, continue ambulation with PT Discharge Planning No payor source. Placement issue. CM following. Plan to DC home when patient is able to maneuver stairs. Placement of ramp. Joyce Chiu MD Aug 08, 2017 09:12
--- NOTE | 2017-08-08 13:02 | HHI.NPPN ---
Subjective History of Present Illness 51-year-old male with a past medical history of cirrhosis of the liver, bronchial asthma, depression, hyperlipidemia, pancreatitis, Menendez's esophagus, chronic abdominal pain, possible history of gastric ulcer and varices, questionable esophageal cancer who was admitted with abdominal pain and distension. I was called to see the patient because of elevated BUN and creatinine. Additional Remarks Patient is alert, no SOB, has good urine out put, swelling is improving. Review of Systems General Constitutional: Fatigue Respiratory Lungs: Wheeze Cardiovascular Cardiac: CORTES Gastrointestinal Gastrointestinal: Abdominal Pain Objective Data Data Vital Signs Date Time Temp Pulse Resp B/P (MAP) Pulse Ox O2 Delivery O2 Flow Rate FiO2 08/08/17 08:00 98.3 88 20 149/61 (90) 95 08/08/17 04:00 98.5 87 18 128/65 (86) 94 08/08/17 03:24 82 08/08/17 00:00 98.6 84 18 127/66 (86) 93 08/07/17 19:52 98.7 88 20 132/67 (88) 95 08/07/17 15:38 98.3 85 18 128/62 (84) 95 -: 08/08/17 0642 08/08/17 0642 Physical Exam General Appearance: No Acute Distress, Anxious Throat Throat Exam: Oral Mucosa [place] & Moist Neck Neck Exam: Neck Supple Pulmonary Resp Exam: Breath Sounds Equal, Rhonchi, Decreased Bases Cardiology CV Exam: Regular, Normal Sinus Rhythm Gastrointestinal/Abdomen GI Exam: Soft, Bowel Sounds Present, Distended Extremeties Extremities Exam: Moderate Edema, Pitting Edema Neurologic Neuro Exam: Alert, Awake, Oriented Assessment/Plan Assessment Summary: DON/Acute Renal Failure Problem List: (1) Acute kidney injury ICD Codes: N17.9 - Acute kidney failure, unspecified (2) Encephalopathy ICD Codes: G93.40 - Encephalopathy, unspecified (3) Anemia ICD Codes: D64.9 - Anemia, unspecified Status: Acute (4) Jaundice ICD Codes: R17 - Unspecified jaundice (5) Gastritis ICD Codes: K29.70 - Gastritis, unspecified, without bleeding Status: Acute (6) 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 Normal size kidneys and has Normal Na. in the urine. Urine Eosinophils is negative. Most likely has ATN causing DON. Has elevated Bilirubin. BP is stable, Follow the urine out put and BMP. Avoid Nephrotoxins. Need more diuresis, changed Bumex to IV, 2 mg BID. Also on Aldactone. Low Albumin also contributing to edema. Told to restrict salt and fluid intake. Creatinine is stable. Increase Bumex, continue Aldactone, Kcl increased. Linette Guerra MD Aug 08, 2017 13:02
[2017-08-09] VITALS (8 sets, daily range): BP systolic 106–138; BP diastolic 56–81; PULSE 78–102; RESP 16–20; TEMP 97.7–98.7; O2SAT 91–94
[2017-08-09] MEDS: BETHANECHOL CHL 25 MG TAB PO SCH ×3 (05:26→21:36)
[2017-08-09] MEDS: traMADol HCL 50 MG TAB PO PRN ×3 (05:26→21:37)
[2017-08-09] MEDS: REMOVE OLD PATCH T-DERMAL SCH (08:59)
[2017-08-09] MEDS: NICOTINE 14 MG/24 HR PATCH T-DERMAL SCH (08:59)
[2017-08-09] MEDS: BUMETANIDE INJ 1 MG/4 ML VIAL IV PUSH SCH ×3 (08:59→18:05)
[2017-08-09] MEDS: SODIUM CHLORIDE 0.9% FLUSH 10 ML FLUSH IV FLUSH SCH ×2 (09:00→21:00)
[2017-08-09] MEDS: PSYLLIUM FIBER SF/GF 6 GM POWD PKT PO SCH ×2 (09:00→21:35)
[2017-08-09] MEDS: RIFAXIMIN 550 MG TAB PO SCH ×2 (09:02→21:36)
[2017-08-09] MEDS: PANTOPRAZOLE SOD 40 MG DELAYED RELEASE TAB PO SCH ×2 (09:03→21:36)
[2017-08-09] MEDS: THIAMINE HCL 100 MG TAB PO SCH (09:03)
[2017-08-09] MEDS: METOCLOPRAMIDE HCL 10 MG TAB PO SCH ×4 (09:03→21:36)
[2017-08-09] MEDS: MULTIVITAMIN TAB PO SCH (09:03)
[2017-08-09] MEDS: POTASSIUM CHLORIDE 20 MEQ CONTROLLED RELEASE TAB PO SCH ×3 (09:04→18:02)
[2017-08-09] MEDS: SPIRONOLACTONE 25 MG TAB PO SCH ×2 (09:07→13:47)
--- NOTE | 2017-08-09 09:45 | HHI.PR ---
Subjective Remarks Patient seen and examined this morning. Vitals are stable and the patient is afebrile. Breathing well, denies complaints. No overnight events. Objective Vital Signs Date Time Temp Pulse Resp B/P (MAP) Pulse Ox O2 Delivery O2 Flow Rate FiO2 08/09/17 09:13 97.7 90 20 113/56 (75) 91 08/09/17 04:00 98.2 78 16 106/68 (81) 93 08/09/17 00:00 98.5 83 16 107/70 (82) 93 08/08/17 20:00 98.6 77 18 124/69 (87) 95 08/08/17 17:00 97.6 82 18 136/78 (97) 98 08/08/17 13:02 99.4 85 20 133/71 (91) 95 I/O 08/08/17 08/08/17 08/08/17 08/09/17 08/09/17 08/09/17 07:00 15:00 23:00 07:00 15:00 23:00 Output Total 1000 ml Balance -1000 ml Output Urine Total 1000 ml # Voids 4 Result Diagram: 08/08/17 0642 08/08/17 0642 Imaging Last Impressions Lower Extremity Ultrasound 07/25/17 0000 Signed Impressions: Service Date/Time: Tuesday, July 25, 2017 17:47 - CONCLUSION: Normal examination. Albert Walden MD Abdomen X-Ray 07/25/17 0000 Signed Impressions: Service Date/Time: Tuesday, July 25, 2017 09:35 - CONCLUSION: Nonspecific mildly distended small bowel. Some degree of ileus or obstruction can be considered. Nikko Mason MD Abdomen Ultrasound 07/25/17 0000 Signed Impressions: Service Date/Time: Tuesday, July 25, 2017 10:27 - CONCLUSION: Mild ascites. Nikko Mason MD Thoracic Spine MRI 07/22/17 0705 Signed Impressions: Service Date/Time: Saturday, July 22, 2017 12:06 - CONCLUSION: 1. Small bilateral pleural effusions. 2. Patent central canal. Caesar Shafer Jr., MD Lumbar Spine MRI 07/22/17 0705 Signed Impressions: Service Date/Time: Saturday, July 22, 2017 12:06 - CONCLUSION: 1. Mild degenerative disc disease at L2-L3. No spinal canal stenosis or neural foraminal stenosis is present. 2. Left upper quadrant varices. These were documented on prior CT from 06/29/4017 and are likely related to chronic liver disease/cirrhosis. Nikko Cote MD Cervical Spine MRI 07/22/1705 Signed Impressions: Service Date/Time: Saturday, July 22, 2017 12:06 - CONCLUSION: Degenerative disc disease at C5-C6 and C6-C7. However, no spinal canal stenosis or neural foraminal narrowing is present. Spinal cord demonstrates no abnormality. Nikko Cote MD Brain MRI 07/22/17704 Signed Impressions: Service Date/Time: Saturday, July 22, 2017 12:06 - CONCLUSION: Negative MRI of the brain for acute process. I do not see evidence for an ischemic event. Colten Nelson MD FACR Small Bowel X-Ray 07/10/17 0000 Signed Impressions: Service Date/Time: Monday, July 10, 2017 08:26 - CONCLUSION: 1. Diffuse small bowel dilatation and delayed small bowel transit time of approximately 5- 6 hours without focal transition point, intraluminal filling defect or gross mass. Findings are most consistent with moderate adynamic ileus. Bryson Downing MD Renal Ultrasound 07/10/17 0000 Signed Impressions: Service Date/Time: Monday, July 10, 2017 18:25 - CONCLUSION: 1. Unremarkable renal ultrasound. Mild ascites. Albert Walden MD Chest X-Ray 07/09/17 0600 Signed Impressions: Service Date/Time: July 06:10 - CONCLUSION: 1. Minimal basilar dependent density. Differential diagnosis includes atelectasis. Findings similar to prior exam. Albert Walden MD Chest CT 07/05/17 1635 Signed Impressions: Service Date/Time: Wednesday, July 05, 2017 18:11 - CONCLUSION: 1. Segmental consolidation with volume loss medial right lower lung. 2. Atelectasis or basilar consolidation left lower lung. 3. Mild amount of ascites. Caesar Ann MD Abdomen MRI 07/02/17 0000 Signed Impressions: Service Date/Time: June 16:34 - CONCLUSION: 1. Hepatomegaly and hepatic steatosis. No focal mass identified. 2. Moderate splenomegaly. 3. Small amount of ascites. 4. Small bilateral pleural effusions. Wilbert Howe MD Ankle X-Ray 07/01/17 Signed Impressions: Service Date/Time: Saturday, July 01, 2017 10:22 - CONCLUSION: Soft tissue mass noted to be fluid filled on ultrasound 09/10/2012. Colten Nelson MD FACR Head CT 06/30/17 0000 Signed Impressions: Service Date/Time: Saturday, July 01, 2017 02:24 - CONCLUSION: 1. No acute intracranial abnormalities. Previous fixation left maxillary sinus. Albert Walden MD Cervical Spine CT 06/30/17 Signed Impressions: Service Date/Time: Saturday, July 01, 2017 02:24 - CONCLUSION: Normal examination for a patient of this age. Albert Walden MD Abdomen/Pelvis CT 06/29/17 Signed Impressions: Service Date/Time: Thursday, June 29, 2017 12:52 - CONCLUSION: 1. Hepatosplenomegaly and varices noted as above. 2. Atherosclerosis. 3. Abnormal diffuse heterogeneous appearance of the liver which may be related to either marked hepatic steatosis in an inhomogeneous fashion versus steatosis and underlying diffuse liver masses. An MRI of the abdomen with and without contrast may be helpful for further evaluation of this finding. Navjot Chirinos MD Objective Remarks GENERAL: well appearing, laying in bed SKIN: Warm and dry. Healed wound with black scab left heel. HEAD: Normocephalic. EYES: No scleral icterus. No injection or drainage. NECK: Supple, trachea midline. No JVD or lymphadenopathy. CARDIOVASCULAR: Regular rate and rhythm without murmurs, gallops, or rubs. RESPIRATORY: Breath sounds equal bilaterally. No accessory muscle use. GASTROINTESTINAL: Abdomen soft, non-tender, nondistended. MUSCULOSKELETAL: Bilat LE with trace pitting edema, tender to touch. . A/P Problem List: (1) Gastritis ICD Code: K29.70 - Gastritis, unspecified, without bleeding Status: Acute (2) Acute kidney injury ICD Code: N17.9 - Acute kidney failure, unspecified (3) Physical deconditioning ICD Code: R53.81 - Other malaise (4) Gastrointestinal bleed ICD Code: K92.2 - Gastrointestinal hemorrhage, unspecified Assessment and Plan Patient is 51 year old male admitted with ETOH withdraw and Ileus. Continue physical therapy. Continue to monitor for continued bowel movements and improvement in GI symptoms. Palliative care has seen and evaluated the patient. He has been noted to have capacity. His goals remain aggressive. The patient lives alone and is not safe to be discharged home due to significant weakness. Liver cirrhosis GI Bleed - resolved Hepatic Encephalopathy- resolved - Etiology had been gastritis and duodenitis - Continue Protonix bid - Minimal ascites on US 07/25/17 - LFTs trended down and stabilizing - Resume diet as tolerated DON, acute - non oliguric. Improving. - Nephrology following. Most likely ATN causing a KI. Normal size kidneys and has normal sodium and a urine. Negative urine eosinophils. The more diuresis, change Bumex to IV 2 mg twice a day. Aldactone added. Low albumin contributing to edema. Restrict salt and fluid intake. Daily weight. - Follow renal indices Hypokalemia - On Bumex 2 mg IV with KCL 40mg TID - Potassium replacements when necessary - Monitor BMP Bilateral lower extremity edema, chronic - This is possibly due to liver cirrhosis. Continue Xifaxan - US Doppler negative for DVT - Impedes patient's mobility - Increase Aldactone 50mg - Jerome wraps - Nephro recommends Bumex IV 2mg BID - Improving Hypertension, chronic - Controlled with Bumex - Clonidine PRN - Continue to Monitor BP Trend Generalized Weakness/Deconditioning Pain - continue PT- d/w him to be more active as tolerable - No payor source for SNF - Tramadol prn for pain, will not start NSAIDs with DON - Neurontin discontinued by neurology - Barrier includes need to do stair living in a trailer with steps and limited space. BLE and pain with ambulation - bumex increased and aldactone added. - Jerome wraps when OOB. - Plan for ramp placement at home ETOH Withdrawal - Resolved - Continue folic acid - Continue thiamine - Continue multivitamin Ileus - resolved Acute pancreatitis- lipase elevated 500s 07/28- lipase trending down- clinically improved - abdominal pain better, exam benign - tolerating regular diet DVT Prophylaxis SCDs (high bleed risk)- GIB-on presentation, high risk of bleeding, varices, thrombocytopenia from cirrhosis, continue ambulation with PT Discharge Planning No payor source. Placement issue. CM following. Plan to DC home when patient is able to maneuver stairs. Placement of ramp. Joyce Chiu MD Aug 09, 2017 09:45
[2017-08-09] MEDS ORDERED: POTASSIUM CHLORIDE 10 MEQ CONTROLLED RELEASE TAB PO ONE (14:30)
[2017-08-10] VITALS (8 sets, daily range): BP systolic 117–142; BP diastolic 60–89; PULSE 84–103; RESP 17–20; TEMP 98–98.9; O2SAT 90–95
[2017-08-10] MEDS: BETHANECHOL CHL 25 MG TAB PO SCH ×3 (05:48→22:57)
[2017-08-10] MEDS: traMADol HCL 50 MG TAB PO PRN ×4 (05:48→23:13)
[2017-08-10 08:47] LABS: BASOPHIL % 0.6 % (0.0-2.0); EOSINOPHIL # 0.3 TH/MM3 (0-0.4); EOSINOPHIL % 6.9 % (0.0-4.0); HEMATOCRIT 29.9 % (39.0-51.0); HEMOGLOBIN 10.2 GM/DL (13.0-17.0); LYMPH % 26.8 % (9.0-44.0); MEAN CELL VOLUME 97.3 FL (80.0-100.0); MEAN CORPUSCULAR HEMOGLOBIN 33.4 PG (27.0-34.0); MEAN CORPUSCULAR HGB CONC 34.3 % (32.0-36.0); MEAN PLATELET VOLUME 7.7 FL (7.0-11.0); MONO % 11.4 % (0.0-8.0); MONOCYTE # 0.4 TH/MM3 (0-0.9); NEUT % 54.3 % (16.0-70.0); PLATELET COUNT 120 TH/MM3 (150-450); RED BLOOD COUNT 3.07 MIL/MM3 (4.50-5.90); RED CELL DISTRIBUTION WIDTH 14.7 % (11.6-17.2); WHITE BLOOD COUNT 3.6 TH/MM3 (4.0-11.0)
[2017-08-10] MEDS: RIFAXIMIN 550 MG TAB PO SCH ×2 (08:51→22:59)
[2017-08-10] MEDS: PANTOPRAZOLE SOD 40 MG DELAYED RELEASE TAB PO SCH ×2 (08:51→22:59)
[2017-08-10] MEDS: THIAMINE HCL 100 MG TAB PO SCH (08:51)
[2017-08-10] MEDS: MULTIVITAMIN TAB PO SCH (08:52)
[2017-08-10] MEDS: METOCLOPRAMIDE HCL 10 MG TAB PO SCH ×4 (08:52→22:59)
[2017-08-10] MEDS: PSYLLIUM FIBER SF/GF 6 GM POWD PKT PO SCH ×2 (08:53→21:00)
[2017-08-10] MEDS: POTASSIUM CHLORIDE 20 MEQ CONTROLLED RELEASE TAB PO SCH ×3 (08:53→17:29)
[2017-08-10] MEDS: REMOVE OLD PATCH T-DERMAL SCH (08:57)
[2017-08-10] MEDS: NICOTINE 14 MG/24 HR PATCH T-DERMAL SCH (08:57)
[2017-08-10] MEDS: BUMETANIDE INJ 1 MG/4 ML VIAL IV PUSH SCH ×3 (08:58→17:26)
[2017-08-10] MEDS: SODIUM CHLORIDE 0.9% FLUSH 10 ML FLUSH IV FLUSH SCH ×2 (08:59→21:00)
[2017-08-10] MEDS: SPIRONOLACTONE 25 MG TAB PO SCH ×2 (09:03→14:05)
[2017-08-10 09:36] LABS: BICARBONATE 30.7 MEQ/L (21.0-32.0); CALCIUM 9.2 MG/DL (8.5-10.1); CREATININE 1.24 MG/DL (0.60-1.30)
--- NOTE | 2017-08-10 09:48 | HHI.PR ---
Subjective Remarks Follow-up visit acute kidney injury, hypokalemia, liver cirrhosis, bilateral lower extremity edema. Patient seen and examined today lying in bed. Reports he is doing well. He states that bilateral lower extremity edema and also abdomen has decreased with diuretic use. States his mobility is improving including his ambulation. Patient states that he may not need to ramp since he is moving to a different rental work and it is just a 1 or 2 steps up with garage. He is also not aware if a ramp is going to be allowed. Denies pain and discomfort. Denies SOB/ dyspnea. Denies chest pain, palpitations, headaches, dizziness. Denies fevers, chills, diarrhea. Objective Vitals Vital Signs Date Time Temp Pulse Resp B/P (MAP) Pulse Ox O2 Delivery O2 Flow Rate FiO2 08/10/17 08:12 98.3 93 19 126/73 (90) 90 08/10/17 04:00 98.6 85 18 124/60 (81) 92 08/10/17 04:00 98.6 85 18 124/60 (81) 92 08/10/17 00:00 98.3 84 18 132/76 (94) 93 08/09/17 20:00 98.7 91 18 138/78 (98) 93 08/09/17 19:00 102 08/09/17 16:00 98.3 94 20 136/81 (99) 08/09/17 12:26 98.2 92 20 124/72 (89) 94 I/O 08/09/17 08/09/17 08/09/17 08/10/17 08/10/17 08/10/17 07:00 15:00 23:00 07:00 15:00 23:00 # Voids 4 4 Result Diagram: 08/10/17 0753 08/10/17 0753 Imaging Last Impressions Lower Extremity Ultrasound 07/25/17 0000 Signed Impressions: Service Date/Time: Tuesday, July 25, 2017 17:47 - CONCLUSION: Normal examination. Albert Walden MD Abdomen X-Ray 07/25/17 0000 Signed Impressions: Service Date/Time: Tuesday, July 25, 2017 09:35 - CONCLUSION: Nonspecific mildly distended small bowel. Some degree of ileus or obstruction can be considered. Nikko Mason MD Abdomen Ultrasound 07/25/17 0000 Signed Impressions: Service Date/Time: Tuesday, July 25, 2017 10:27 - CONCLUSION: Mild ascites. Nikko Mason MD Thoracic Spine MRI 07/22/17704 Signed Impressions: Service Date/Time: Saturday, July 22, 2017 12:06 - CONCLUSION: 1. Small bilateral pleural effusions. 2. Patent central canal. Caesar Shafer Jr., MD Lumbar Spine MRI 07/22/17704 Signed Impressions: Service Date/Time: Saturday, July 22, 2017 12:06 - CONCLUSION: 1. Mild degenerative disc disease at L2-L3. No spinal canal stenosis or neural foraminal stenosis is present. 2. Left upper quadrant varices. These were documented on prior CT from 06/29/4017 and are likely related to chronic liver disease/cirrhosis. Nikko Cote MD Cervical Spine MRI 07/22/17704 Signed Impressions: Service Date/Time: Saturday, July 22, 2017 12:06 - CONCLUSION: Degenerative disc disease at C5-C6 and C6-C7. However, no spinal canal stenosis or neural foraminal narrowing is present. Spinal cord demonstrates no abnormality. Nikko Cote MD Brain MRI 07/22/17704 Signed Impressions: Service Date/Time: Saturday, July 22, 2017 12:06 - CONCLUSION: Negative MRI of the brain for acute process. I do not see evidence for an ischemic event. Colten Nelson MD FACR Small Bowel X-Ray 07/10/17 Signed Impressions: Service Date/Time: Monday, July 10, 2017 08:26 - CONCLUSION: 1. Diffuse small bowel dilatation and delayed small bowel transit time of approximately 5- 6 hours without focal transition point, intraluminal filling defect or gross mass. Findings are most consistent with moderate adynamic ileus. Bryson Downing MD Renal Ultrasound 07/10/17 Signed Impressions: Service Date/Time: Monday, July 10, 2017 18:25 - CONCLUSION: 1. Unremarkable renal ultrasound. Mild ascites. Albert Walden MD Chest X-Ray 07/09/17 0600 Signed Impressions: Service Date/Time: July 06:10 - CONCLUSION: 1. Minimal basilar dependent density. Differential diagnosis includes atelectasis. Findings similar to prior exam. Albert Walden MD Chest CT 07/05/17 1635 Signed Impressions: Service Date/Time: Wednesday, July 05, 2017 18:11 - CONCLUSION: 1. Segmental consolidation with volume loss medial right lower lung. 2. Atelectasis or basilar consolidation left lower lung. 3. Mild amount of ascites. Caesar Ann MD Abdomen MRI 07/02/17 0000 Signed Impressions: Service Date/Time: June 16:34 - CONCLUSION: 1. Hepatomegaly and hepatic steatosis. No focal mass identified. 2. Moderate splenomegaly. 3. Small amount of ascites. 4. Small bilateral pleural effusions. Wilbert Howe MD Ankle X-Ray 07/01/17 0000 Signed Impressions: Service Date/Time: Saturday, July 01, 2017 10:22 - CONCLUSION: Soft tissue mass noted to be fluid filled on ultrasound 09/10/2012. Colten Nelson MD FACR Head CT 06/30/17 0000 Signed Impressions: Service Date/Time: Saturday, July 01, 2017 02:24 - CONCLUSION: 1. No acute intracranial abnormalities. Previous fixation left maxillary sinus. Albert Walden MD Cervical Spine CT 06/30/17 0000 Signed Impressions: Service Date/Time: Saturday, July 01, 2017 02:24 - CONCLUSION: Normal examination for a patient of this age. Albert Walden MD Abdomen/Pelvis CT 06/29/17 0000 Signed Impressions: Service Date/Time: Thursday, June 29, 2017 12:52 - CONCLUSION: 1. Hepatosplenomegaly and varices noted as above. 2. Atherosclerosis. 3. Abnormal diffuse heterogeneous appearance of the liver which may be related to either marked hepatic steatosis in an inhomogeneous fashion versus steatosis and underlying diffuse liver masses. An MRI of the abdomen with and without contrast may be helpful for further evaluation of this finding. Navjot Chirinos MD Objective Remarks GENERAL: This is a well-nourished, well-developed patient, in no apparent distress. SKIN: Warm and dry. HEENT: Normocephalic. Pupils equal round and reactive. Nose without bleeding. Airway patent. NECK: Trachea midline. CARDIOVASCULAR: Regular rate and rhythm without murmurs, gallops, or rubs. RESPIRATORY: Diminished bases. No wheezes, rales, or rhonchi. GASTROINTESTINAL: Abdomen soft, non-tender, nondistended. Bowel Sounds normoactive x4. MUSCULOSKELETAL: Extremities without clubbing, cyanosis. Bilateral lower ext +4 edema. Anasarca - improving NEUROLOGICAL: Awake and alert. Oriented to place, person. No focal neuro deficit. Moves all extremities. Normal speech. 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 Continue physical therapy. Continue to monitor for continued bowel movements and improvement in GI symptoms. Liver cirrhosis GI Bleed - resolved Hepatic Encephalopathy- resolved - Etiology had been gastritis and duodenitis - Continue Protonix bid - Minimal ascites on US 07/25/17 - LFTs trended down and stabilizing - Resume diet as tolerated DON, acute - non oliguric. Improving. - Nephrology following. Most likely ATN causing a KI. Normal size kidneys and has normal sodium and a urine. - Follow renal indices Hypokalemia - On Bumex 2 mg IV, this has been increased by certified diabetes educator to TID, with KCL 40mg TID - Potassium replacements when necessary - Monitor BMP Bilateral lower extremity edema, chronic - This is possibly due to liver cirrhosis. Continue Xifaxan - US Doppler negative for DVT - Impedes patient's mobility - Bumex switch over to Bumex IV - Increase Aldactone 50mg - Jerome wraps - Nephro increased Bumex IV 2mg TID - Improving - Will place patient back on Bumex by mouth when discharge in combination with Aldactone 50 mg BID Hypertension, chronic - Controlled with Bumex - Clonidine PRN - Continue to Monitor BP Trend Generalized Weakness/Deconditioning Pain - continue PT- d/w him to be more active as tolerable - No payor source for SNF - Tramadol prn for pain, will not start NSAIDs with DON - Neurontin discontinued by neurology - Barrier includes need to do stair living in a trailer with steps and limited space. BLE and pain with ambulation - bumex increased and aldactone added. - Jerome wraps when OOB. - Plan for ramp placement at home, if possible. However patient states that he will move to different rental place were in their car only 1-2 steps with garage. ETOH Withdrawal - Resolved - Continue folic acid - Continue thiamine - Continue multivitamin Ileus - resolved Acute pancreatitis- lipase elevated 500s 07/28- lipase trending down- clinically improved - abdominal pain better, exam benign - tolerating regular diet DVT Prophylaxis SCDs (high bleed risk)- GIB-on presentation, high risk of bleeding, varices, thrombocytopenia from cirrhosis, continue ambulation with PT Discuss with patient, nursing, Dr. Urbina Discharge Planning No payor source. Placement issue. CM following. Plan to DC home when patient is able to maneuver stairs or the new rental place wherein patient will not need the stairs. He has been improving with his mobility. Markus Vergara Aug 10, 2017 09:48
[2017-08-10] MEDS ORDERED: WHEEMIS3 (16:18)
[2017-08-10] MEDS ORDERED: GETGO ROLLING W1 MI1 (16:19)
[2017-08-11] VITALS (7 sets, daily range): BP systolic 117–140; BP diastolic 62–83; PULSE 72–101; RESP 17–20; TEMP 98.1–98.3; O2SAT 92–95
[2017-08-11] MEDS: traMADol HCL 50 MG TAB PO PRN ×3 (06:24→18:47)
[2017-08-11] MEDS: BETHANECHOL CHL 25 MG TAB PO SCH ×3 (06:24→21:19)
[2017-08-11 07:49] LABS: BICARBONATE 29.7 MEQ/L (21.0-32.0); CALCIUM 9.3 MG/DL (8.5-10.1); CREATININE 1.46 MG/DL (0.60-1.30)
[2017-08-11] MEDS: METOCLOPRAMIDE HCL 10 MG TAB PO SCH ×4 (08:55→21:19)
[2017-08-11] MEDS: MULTIVITAMIN TAB PO SCH (08:55)
[2017-08-11] MEDS: SODIUM CHLORIDE 0.9% FLUSH 10 ML FLUSH IV FLUSH SCH ×2 (08:55→21:19)
[2017-08-11] MEDS: PANTOPRAZOLE SOD 40 MG DELAYED RELEASE TAB PO SCH ×2 (08:55→21:19)
[2017-08-11] MEDS: PSYLLIUM FIBER SF/GF 6 GM POWD PKT PO SCH ×2 (08:56→21:24)
[2017-08-11] MEDS: THIAMINE HCL 100 MG TAB PO SCH (08:56)
[2017-08-11] MEDS: RIFAXIMIN 550 MG TAB PO SCH ×2 (08:56→21:19)
[2017-08-11] MEDS: POTASSIUM CHLORIDE 20 MEQ CONTROLLED RELEASE TAB PO SCH ×3 (08:56→17:39)
[2017-08-11] MEDS: SPIRONOLACTONE 25 MG TAB PO SCH ×2 (08:59→13:11)
[2017-08-11] MEDS: REMOVE OLD PATCH T-DERMAL SCH (08:59)
[2017-08-11] MEDS: NICOTINE 14 MG/24 HR PATCH T-DERMAL SCH (08:59)
[2017-08-11] MEDS: BUMETANIDE INJ 1 MG/4 ML VIAL IV PUSH SCH ×3 (09:01→17:40)
--- NOTE | 2017-08-11 12:57 | HHI.PR ---
Subjective Remarks Follow-up visit acute kidney injury, hypokalemia, liver cirrhosis, bilateral lower extremity edema. Patient seen and examined today lying in bed. Reports he is doing "ok". Spoke about having pain ("pins and needles in both my legs"). Reported having lost 38 pounds since admission; leg swelling is greatly decreased Stated he is transferring to wheelchair and is walking "with a belt around my waist (and physical therapist holding it) down the hong and back." Decreased bowel movements were reported. Pt denied fever, chills, NVD, chest/abdominal pain, urinary issues,cough, shortness of breath. Objective Vitals Vital Signs Date Time Temp Pulse Resp B/P (MAP) Pulse Ox O2 Delivery O2 Flow Rate FiO2 08/11/17 12:00 98.2 101 20 122/78 (93) 95 08/11/17 08:19 98.2 100 20 130/74 (92) 94 08/11/17 08:03 88 08/11/17 05:23 98.1 87 17 117/62 (80) 94 08/11/17 00:30 98.2 86 17 121/72 (88) 95 08/10/17 20:30 98.1 87 17 117/62 (80) 94 08/10/17 20:17 94 08/10/17 16:26 98.0 92 20 119/71 (87) 95 I/O 08/10/17 08/10/17 08/10/17 08/11/17 08/11/17 08/11/17 07:00 15:00 23:00 07:00 15:00 23:00 Intake Total 360 ml 250 ml 360 ml 295 ml Output Total 2200 ml Balance 360 ml 250 ml -1840 ml 295 ml Intake Oral 360 ml 250 ml 360 ml 295 ml Output Urine Total 2200 ml # Voids 4 7 # Bowel Movements 1 Result Diagram: 08/10/17 0753 08/11/17 0616 Imaging Last Impressions Lower Extremity Ultrasound 07/25/17 0000 Signed Impressions: Service Date/Time: Tuesday, July 25, 2017 17:47 - CONCLUSION: Normal examination. Albert Walden MD Abdomen X-Ray 07/25/17 0000 Signed Impressions: Service Date/Time: Tuesday, July 25, 2017 09:35 - CONCLUSION: Nonspecific mildly distended small bowel. Some degree of ileus or obstruction can be considered. Nikko Mason MD Abdomen Ultrasound 07/25/17 Signed Impressions: Service Date/Time: Tuesday, July 25, 2017 10:27 - CONCLUSION: Mild ascites. Nikko Mason MD Thoracic Spine MRI 07/22/17704 Signed Impressions: Service Date/Time: Saturday, July 22, 2017 12:06 - CONCLUSION: 1. Small bilateral pleural effusions. 2. Patent central canal. Caesar Shafer Jr., MD Lumbar Spine MRI 07/22/17704 Signed Impressions: Service Date/Time: Saturday, July 22, 2017 12:06 - CONCLUSION: 1. Mild degenerative disc disease at L2-L3. No spinal canal stenosis or neural foraminal stenosis is present. 2. Left upper quadrant varices. These were documented on prior CT from 06/29/4017 and are likely related to chronic liver disease/cirrhosis. Nikko Cote MD Cervical Spine MRI 07/22/17704 Signed Impressions: Service Date/Time: Saturday, July 22, 2017 12:06 - CONCLUSION: Degenerative disc disease at C5-C6 and C6-C7. However, no spinal canal stenosis or neural foraminal narrowing is present. Spinal cord demonstrates no abnormality. Nikko Cote MD Brain MRI 07/22/17704 Signed Impressions: Service Date/Time: Saturday, July 22, 2017 12:06 - CONCLUSION: Negative MRI of the brain for acute process. I do not see evidence for an ischemic event. Colten Nelson MD FACR Small Bowel X-Ray 07/10/17 Signed Impressions: Service Date/Time: Monday, July 10, 2017 08:26 - CONCLUSION: 1. Diffuse small bowel dilatation and delayed small bowel transit time of approximately 5- 6 hours without focal transition point, intraluminal filling defect or gross mass. Findings are most consistent with moderate adynamic ileus. Bryson Downing MD Renal Ultrasound 07/10/17 Signed Impressions: Service Date/Time: Monday, July 10, 2017 18:25 - CONCLUSION: 1. Unremarkable renal ultrasound. Mild ascites. Albert Walden MD Chest X-Ray 07/09/17 0600 Signed Impressions: Service Date/Time: July 06:10 - CONCLUSION: 1. Minimal basilar dependent density. Differential diagnosis includes atelectasis. Findings similar to prior exam. Albert Walden MD Chest CT 07/05/17 1635 Signed Impressions: Service Date/Time: Wednesday, July 05, 2017 18:11 - CONCLUSION: 1. Segmental consolidation with volume loss medial right lower lung. 2. Atelectasis or basilar consolidation left lower lung. 3. Mild amount of ascites. Caesar Ann MD Abdomen MRI 07/02/17 0000 Signed Impressions: Service Date/Time: June 16:34 - CONCLUSION: 1. Hepatomegaly and hepatic steatosis. No focal mass identified. 2. Moderate splenomegaly. 3. Small amount of ascites. 4. Small bilateral pleural effusions. Wilbert Howe MD Ankle X-Ray 07/01/17 0000 Signed Impressions: Service Date/Time: Saturday, July 01, 2017 10:22 - CONCLUSION: Soft tissue mass noted to be fluid filled on ultrasound 09/10/2012. Colten Nelson MD FACR Head CT 06/30/17 0000 Signed Impressions: Service Date/Time: Saturday, July 01, 2017 02:24 - CONCLUSION: 1. No acute intracranial abnormalities. Previous fixation left maxillary sinus. Albert Walden MD Cervical Spine CT 06/30/17 0000 Signed Impressions: Service Date/Time: Saturday, July 01, 2017 02:24 - CONCLUSION: Normal examination for a patient of this age. Albert Walden MD Abdomen/Pelvis CT 06/29/17 0000 Signed Impressions: Service Date/Time: Thursday, June 29, 2017 12:52 - CONCLUSION: 1. Hepatosplenomegaly and varices noted as above. 2. Atherosclerosis. 3. Abnormal diffuse heterogeneous appearance of the liver which may be related to either marked hepatic steatosis in an inhomogeneous fashion versus steatosis and underlying diffuse liver masses. An MRI of the abdomen with and without contrast may be helpful for further evaluation of this finding. Navjot Chirinos MD Objective Remarks GENERAL: Pt encountered laying a bed watching TV, NAD. SKIN: Warm and dry. Multiple tattoos noted. HEAD: Normocephalic. EYES: No scleral icterus. No injection or drainage. NECK: Supple, trachea midline. No lymphadenopathy. CARDIOVASCULAR: Regular rate and rhythm without murmurs, gallops, or rubs. RESPIRATORY: Breath sounds equal bilaterally. No accessory muscle use. GASTROINTESTINAL: Abdomen soft,, nondistended bilateral lower quadrant tenderness elicited. MUSCULOSKELETAL: No cyanosis, or edema. PSYCHIATRIC: Alert and oriented x 3, no overt signs of depression/anxiety. Speech was clear and fluent. Procedures 06/30/17 EGD Medications and IVs Current Medications Medications (Trade) Dose Ordered Sig/Syed Route Start Time Stop Time Status Last Admin (NS Flush) 2 ml UNSCH PRN IV FLUSH 06/29/17 16:00 (NS Flush) 2 ml BID IV FLUSH 06/29/17 21:00 08/11/17 08:55 (Tylenol) 650 mg Q4H PRN PO 06/29/17 15:15 (Zofran Inj) 4 mg Q6H PRN IVP 06/29/17 15:15 07/28/17 13:24 (Tylenol) 650 mg Q6H PRN PO 06/29/17 15:15 08/01/17 12:28 (Narcan Inj) 0.4 mg UNSCH PRN IV PUSH 06/29/17 16:00 (Milk Of Magnesia Liq) 30 ml Q12H PRN PO 06/29/17 15:15 (Senokot) 17.2 mg Q12H PRN PO 06/29/17 15:15 (Dulcolax Supp) 10 mg DAILY PRN RECTAL 06/29/17 15:15 (Lactulose Liq) 30 ml DAILY PRN PO 06/29/17 15:15 Future Hold (Vitamin B1) 100 mg DAILY PO 06/29/17 16:00 Future hold 08/11/17 08:56 (Habitrol 14 Mg Patch.24 Hr) 1 patch DAILY T-DERMAL 06/30/17 09:00 08/11/17 08:59 Miscellaneous Information 1 DAILY T-DERMAL 06/30/17 09:00 08/11/17 08:59 (Xifaxan) 550 mg BID PO 06/30/17 11:45 08/11/17 08:56 (K-Lyte Cl Eff) 50 meq UNSCH PRN PO 07/01/17 09:30 08/04/17 21:57 (Duoneb Neb) 1 ampule Q2HR NEB PRN NEB 07/04/17 16:15 07/12/17 09:49 (Urecholine) 25 mg Q8HR PO 07/13/17 14:00 08/11/17 06:24 Patient Own Medication PT OWN MED: JAKE... BID PO 07/13/17 21:00 Future Hold (Metamucil Smooth Texture Sf/ Gf Pkt) 1 pkt BID PO 07/20/17 21:00 08/11/17 08:56 (Theragran) 1 tab DAILY PO 07/23/17 09:00 08/11/17 08:55 (Protonix) 40 mg Q12HR PO 07/25/17 09:00 08/11/17 08:55 (Reglan) 10 mg ACHS PO 07/27/17 12:00 08/11/17 08:55 (Ultram) 50 mg Q6H PRN PO 08/01/17 13:15 08/11/17 06:24 (Catapres) 0.1 mg Q8HR PRN PO 08/04/17 09:00 (KCl) 40 meq TID PO 08/07/17 09:00 08/11/17 08:56 (Aldactone) 50 mg BID@0900,1400 PO 08/08/17 09:00 08/11/17 08:59 (Bumex Inj) 2 mg TID IV PUSH 08/08/17 18:00 08/11/17 09:01 Urinary Catheter: No A/P Problem List: (1) Esophageal varices ICD Code: I85.00 - Esophageal varices without bleeding Status: Chronic (2) Gastrointestinal bleed ICD Code: K92.2 - Gastrointestinal hemorrhage, unspecified (3) GERD Status: Chronic (4) Alcohol use ICD Code: Z78.9 - Other specified health status Status: Acute (5) Tobacco abuse ICD Code: Z72.0 - Tobacco use Status: Chronic (6) Jaundice ICD Code: R17 - Unspecified jaundice (7) Gastritis ICD Code: K29.70 - Gastritis, unspecified, without bleeding Status: Acute (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 Continue physical therapy. Continue to monitor for continued bowel movements and improvement in GI symptoms. DON: creatinine noted to be 1.46 (increase from 1.24 yesterday). Anemia: Continues though evidencing improvement over values noted upon admission. Bilateral Lower edema: Continue diuresis. Hypokalemia: WNL. Liver cirrhosis GI Bleed - resolved Hepatic Encephalopathy- resolved - Etiology had been gastritis and duodenitis - Continue Protonix bid - Minimal ascites on US 07/25/17 - LFTs trended down and stabilizing - Resume diet as tolerated DON, acute - non oliguric. Improving. - Nephrology following. Most likely ATN causing a KI. Normal size kidneys and has normal sodium and a urine. - Follow renal indices Hypokalemia - On Bumex 2 mg IV, this has been increased by application administrator to TID, with KCL 40mg TID - Potassium replacements when necessary - Monitor BMP Bilateral lower extremity edema, chronic - This is possibly due to liver cirrhosis. Continue Xifaxan - US Doppler negative for DVT - Impedes patient's mobility - Bumex switch over to Bumex IV - Increase Aldactone 50mg - Jerome wraps - Nephro increased Bumex IV 2mg TID - Improving - Will place patient back on Bumex by mouth when discharge in combination with Aldactone 50 mg BID Hypertension, chronic - Controlled with Bumex - Clonidine PRN - Continue to Monitor BP Trend Generalized Weakness/Deconditioning Pain - continue PT- d/w him to be more active as tolerable - No payor source for SNF - Tramadol prn for pain, will not start NSAIDs with DON - Neurontin discontinued by neurology - Barrier includes need to do stair living in a trailer with steps and limited space. BLE and pain with ambulation - bumex increased and aldactone added. - Jerome wraps when OOB. - Plan for ramp placement at home, if possible. However patient states that he will move to different rental place were in their car only 1-2 steps with garage. ETOH Withdrawal - Resolved - Continue folic acid - Continue thiamine - Continue multivitamin Ileus - resolved Acute pancreatitis- lipase elevated 500s 07/28- lipase trending down- clinically improved - abdominal pain better, exam benign - tolerating regular diet DVT Prophylaxis SCDs (high bleed risk)- GIB-on presentation, high risk of bleeding, varices, thrombocytopenia from cirrhosis, continue ambulation with PT Discuss with patient, nursing, Dr. Urbina Discharge Planning Pt to be discharged to home of his ex-. Problem Qualifiers (1) Esophageal varices: Qualified Codes: I85.00 - Esophageal varices without bleeding (2) Gastrointestinal bleed: Qualified Codes: K29.61 - Other gastritis with bleeding (3) GERD: Qualified Codes: K21.9 - Gastro-esophageal reflux disease without esophagitis (4) Gastritis: (5) Menendez esophagus: Qualified Codes: K22.70 - Menendez's esophagus without dysplasia (6) Anemia: Qualified Codes: D64.9 - Anemia, unspecified Thiago Villegas Jr. Aug 11, 2017 12:57
--- NOTE | 2017-08-11 14:45 | HHI.NPPN ---
Subjective History of Present Illness 51-year-old male with a past medical history of cirrhosis of the liver, bronchial asthma, depression, hyperlipidemia, pancreatitis, Menendez's esophagus, chronic abdominal pain, possible history of gastric ulcer and varices, questionable esophageal cancer who was admitted with abdominal pain and distension. I was called to see the patient because of elevated BUN and creatinine. Additional Remarks Patient is alert, no SOB, has good urine out put, swelling is much better and lost weight to 84 kg from 108 Kg. Review of Systems General Constitutional: Fatigue Respiratory Lungs: Wheeze Cardiovascular Cardiac: CORTES Gastrointestinal Gastrointestinal: Abdominal Pain Objective Data Data 08/11/17 08/12/17 19:00 07:00 Intake Total 295 ml Balance 295 ml Intake Oral 295 ml Vital Signs Date Time Temp Pulse Resp B/P (MAP) Pulse Ox O2 Delivery O2 Flow Rate FiO2 08/11/17 12:00 98.2 101 20 122/78 (93) 95 08/11/17 08:19 98.2 100 20 130/74 (92) 94 08/11/17 08:03 88 08/11/17 05:23 98.1 87 17 117/62 (80) 94 08/11/17 00:30 98.2 86 17 121/72 (88) 95 08/10/17 20:30 98.1 87 17 117/62 (80) 94 08/10/17 20:17 94 08/10/17 16:26 98.0 92 20 119/71 (87) 95 -: 08/10/17 0753 08/11/17 0616 Physical Exam General Appearance: No Acute Distress, Anxious Throat Throat Exam: Oral Mucosa [place] & Moist Neck Neck Exam: Neck Supple Pulmonary Resp Exam: Breath Sounds Equal, Rhonchi, Decreased Bases Cardiology CV Exam: Regular, Normal Sinus Rhythm Gastrointestinal/Abdomen GI Exam: Soft, Bowel Sounds Present, Distended Extremeties Extremities Exam: Moderate Edema, Pitting Edema Neurologic Neuro Exam: Alert, Awake, Oriented Assessment/Plan Assessment Summary: DON/Acute Renal Failure Problem List: (1) Acute kidney injury ICD Codes: N17.9 - Acute kidney failure, unspecified (2) Encephalopathy ICD Codes: G93.40 - Encephalopathy, unspecified (3) Anemia ICD Codes: D64.9 - Anemia, unspecified Status: Acute (4) Jaundice ICD Codes: R17 - Unspecified jaundice (5) Gastritis ICD Codes: K29.70 - Gastritis, unspecified, without bleeding Status: Acute (6) 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 Normal size kidneys and has Normal Na. in the urine. Urine Eosinophils is negative. Most likely has ATN causing DON. Has elevated Bilirubin. BP is stable, Follow the urine out put and BMP. Avoid Nephrotoxins. Need more diuresis, changed Bumex to IV, 2 mg BID. Also on Aldactone. Low Albumin also contributing to edema. Told to restrict salt and fluid intake. Creatinine is slightly increased, \need to decrease diuretics. Give Bumex only 1 mg BID. To follow with PCP. OK to D/C from Nephrology. Problem Qualifiers (1) Anemia: Qualified Codes: D64.9 - Anemia, unspecified (2) Gastritis: (3) Menendez esophagus: Qualified Codes: K22.70 - Menendez's esophagus without dysplasia Linette Guerra MD Aug 11, 2017 14:45
[2017-08-11] MEDS ORDERED: [UNRECOGNIZED DRUG - SUPPLY] (15:46)
[2017-08-11] MEDS ORDERED: BATH/SHOWER SEA1 MIS (15:53)
[2017-08-11] MEDS ORDERED: SPIR25 PO (16:08)
[2017-08-11] MEDS ORDERED: POTA20TA5 PO (16:08)
[2017-08-11] MEDS ORDERED: XIFA550T4 PO (16:08)
[2017-08-11] MEDS ORDERED: BUME2TAB PO (16:08)
[2017-08-11] MEDS ORDERED: Lactulose Liq PO (16:08)
[2017-08-11] MEDS ORDERED: BUME1TAB PO (16:44)
--- NOTE | 2017-08-11 17:29 | HHI.DS ---
Discharge Summary Admission Date Jun 29, 2017 at 15:09 Discharge Date: Aug 11, 2017 Admitting Diagnosis GI bleeding, History of varices, Liver chirrosis. 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 He states that he had a hernia repair in the middle of his abdomen having pain there now. Patient states he's had symptoms for the past few days associated with some hematemesis and some melena has history of heavy alcohol abuse has multiple cocktails a day at least vodka cranberries large denies any chest pain or shortness of breath at this time Will be admitted will consult GI We'll monitor for alcohol withdrawal is expected delirium tremens CBC/BMP: 08/10/17 0753 08/11/17 0616 Significant Findings Laboratory Tests Test 08/10/17 07:53 08/11/17 06:16 White Blood Count 3.6 TH/MM3 (4.0-11.0) Red Blood Count 3.07 MIL/MM3 (4.50-5.90) Hemoglobin 10.2 GM/DL (13.0-17.0) Hematocrit 29.9 % (39.0-51.0) Platelet Count 120 TH/MM3 (150-450) Monocytes (%) (Auto) 11.4 % (0.0-8.0) Eosinophils (%) (Auto) 6.9 % (0.0-4.0) Estimat Glomerular Filtration Rate 62 ML/MIN (>89) 51 ML/MIN (>89) Creatinine 1.46 MG/DL (0.60-1.30) Random Glucose 111 MG/DL (74-106) Sodium Level 135 MEQ/L (136-145) Chloride Level 96 MEQ/L (98-107) PE at Discharge GENERAL: Pt encountered laying a bed watching TV, NAD. SKIN: Warm and dry. Multiple tattoos noted. HEAD: Normocephalic. EYES: No scleral icterus. No injection or drainage. NECK: Supple, trachea midline. No lymphadenopathy. CARDIOVASCULAR: Regular rate and rhythm without murmurs, gallops, or rubs. RESPIRATORY: Breath sounds equal bilaterally. No accessory muscle use. GASTROINTESTINAL: Abdomen soft,, nondistended bilateral lower quadrant tenderness elicited. MUSCULOSKELETAL: No cyanosis, or edema. PSYCHIATRIC: Alert and oriented x 3, no overt signs of depression/anxiety. Speech was clear and fluent. Hospital Course Pt admitted to [facility] [place] on 06/29/17 with abdominal pain patient noted to have jaundice and thrombocytopenia history of esophageal varices, elevated ammonia levels and metabolic encephalopathy. Pt received services from gastroenterology , physical therapy (due to weakness.deconditioning), and nephrology (due to acute renal injury). GI performed EGD and pt was found to have Menendez's esophagitis (without bleeding). Pt was treated with PPI for duration of stay. Minimal ascites on US 07/25/17. LFTs trended down and stabilizing. Hepatic encephalopathy has resolved. Continue lactulose and rifaximin. Lipase level was elevated but trended down with supportive care. Pt did have bilateral lower extremity edema and was placed on diuretics and reportedly went from 233 pounds to 195 (at discharge). US Doppler negative for DVT. He was placed on FAY wraps. Nephrology did adjust diuretics in light of pt's renal function. He was on IV Bumex which was converted to PO. He was also continued on PO Aldactone. He will have a BMP checked in 3-5 days. He will follow up with nephrology. He had hypokalemia and was continued on KCl replacement. Blood pressure was controlled. He worked with PT. He received pain control. ETOH withdrawal resolved. S/p folic acid, thiamine and multivitamin. Pt Condition on Discharge: Stable Discharge Disposition: Discharge Home Discharge Time: > 30 minutes Discharge Instructions DIET: Follow Instructions for: As Tolerated, No Restrictions Activities you can perform: See Additionl Instruction Other Activity Instructions: Per physical therapy to use wheelchair and walker. Follow up Referrals: Nephrology - 2 Weeks PCP Follow-up - 2 Weeks New Orders: BASIC METABOLIC PROF - 3-5 Days New Medications: Bumetanide (Bumetanide) 1 Mg Tab 1 MG PO BID, #60 TAB 0 Refills Commode 3-in-1 (Commode 3-in-1) 1 Mis Mis EA .ROUTE DIRECTED, #1 0 Refills Walker Rolling/GetGo (Walker Rolling/GetGo) 1 Mis Mis EA .ROUTE DIRECTED, #1 Wheelchair (Wheelchair) 1 Mis Mis EA .ROUTE DIRECTED, #1 0 Refills Bethanechol (Urecholine) 25 Mg Tab 25 MG PO Q8HR for Bladder Spasm for 30 Days, TAB Metoclopramide (Metoclopramide) 10 Mg Tab 10 MG PO ACHS for Stomach for 30 Days, TAB Pantoprazole (Pantoprazole) 40 Mg Tab 40 MG PO Q12HR for GI, #60 TAB Potassium Chloride Microencaps (Potassium Chloride Microencaps) 20 Meq Tab 20 MEQ PO BID for kidney for 30 Days, #60 TAB 1 Refill Take 1 pill twice a day. Rifaximin (Xifaxan) 550 Mg Tab 550 MG PO BID for liver for 30 Days, #60 TAB 1 Refill Take one pill twice a day Spironolactone (Aldactone) 25 Mg Tab 50 MG PO BID@0900,1400 for Leg edema for 30 Days, #60 TAB 1 Refill Take one pill at 0900 AM and at 2:00 PM Tramadol (Ultram) 50 Mg Tab 50 MG PO Q6H PRN for PAIN- LEGS, #12 TAB [Lactulose Liq] () 30 ML SYRP 30 ML PO DAILY for Liver for 30 Days, % 1 Refill Changed Medications: Bath/Shower Seat/Adjustab (Bath/Shower Seat/Adjustab) 1 Mis Mis EA .ROUTE DIRECTED, #1 0 Refills (Changed from: [showerchair] #1 EA DIRECTED) Continued Medications: [asthma inhaler ] () Additional Information The exam, history, and the medical decision-making described in the above note were completed with the assistance of the mid-level provider. I reviewed and agree with the findings presented. I attest that I had a [id number] encounter with the patient on the same day, and personally performed and documented my assessment and findings in the medical record. Thiago Villegas Jr. Aug 11, 2017 17:29 Lele Urbina DO Aug 11, 2017 18:33
[2017-08-11] MEDS ORDERED: BETH25 PO (17:34)
[2017-08-11] MEDS ORDERED: PANT40TA3 PO (17:34)
[2017-08-11] MEDS ORDERED: METO10TA PO (17:34)
[2017-08-11] MEDS ORDERED: TRAM50 PO (17:34)
--- NOTE | 2017-08-11 17:42 | HHI.DCPOC ---
Discharge Care Plan Diagnosis: (1) Anemia (2) Menendez esophagus (3) Gastritis (4) Hypokalemia (5) Thrombocytopenia (6) Acute kidney injury Goals to Promote Your Health * To prevent worsening of your condition and complications * To maintain your health at the optimal level Directions to Meet Your Goals Take your medications as prescribed Follow your dietary instruction Follow activity as directed Keep your appointments as scheduled Take your immunizations and boosters as scheduled If your symptoms worsen call your PCP, if no PCP go to Urgent Care Center or Emergency Room Smoking is Dangerous to Your Health. Avoid second hand smoke Call the 24-hour hour crisis hotline for domestic abuse at Thiago Villegas Jr. [facility] Aug 11, 2017 17:42
--- NOTE | 2017-08-11 17:42 | HHI.DCPOC ---
Discharge Care Plan Diagnosis: (1) Anemia (2) Menendez esophagus (3) Gastritis (4) Hypokalemia (5) Thrombocytopenia (6) Acute kidney injury Goals to Promote Your Health * To prevent worsening of your condition and complications * To maintain your health at the optimal level Directions to Meet Your Goals Take your medications as prescribed Follow your dietary instruction Follow activity as directed Keep your appointments as scheduled Take your immunizations and boosters as scheduled If your symptoms worsen call your PCP, if no PCP go to Urgent Care Center or Emergency Room Smoking is Dangerous to Your Health. Avoid second hand smoke Call the 24-hour hour crisis hotline for domestic abuse at Thiago Villegas Jr. [facility] Aug 11, 2017 17:42
--- NOTE | 2017-08-11 17:42 | HHI.DCPOC ---
Discharge Care Plan Diagnosis: (1) Anemia (2) Menendez esophagus (3) Gastritis (4) Hypokalemia (5) Thrombocytopenia (6) Acute kidney injury Goals to Promote Your Health * To prevent worsening of your condition and complications * To maintain your health at the optimal level Directions to Meet Your Goals Take your medications as prescribed Follow your dietary instruction Follow activity as directed Keep your appointments as scheduled Take your immunizations and boosters as scheduled If your symptoms worsen call your PCP, if no PCP go to Urgent Care Center or Emergency Room Smoking is Dangerous to Your Health. Avoid second hand smoke Call the 24-hour hour crisis hotline for domestic abuse at Thiago Villegas Jr. [facility] Aug 11, 2017 17:42
[2017-08-12 01:33] VITALS: BP 139/82; PULSE 110; RESP 20; TEMP 98.3; O2SAT 96
[2017-08-12 01:35] VITALS: BP 139/82; PULSE 110; RESP 18; TEMP 98.3; O2SAT 96
[2017-08-12] MEDS: BETHANECHOL CHL 25 MG TAB PO SCH (05:51)
[2017-08-12 07:30] VITALS: BP 127/72; PULSE 94; RESP 18; TEMP 97.7; O2SAT 96
[2017-08-12 08:14] VITALS: BP 108/77; PULSE 105; RESP 19; TEMP 98.1; O2SAT 95
[2017-08-12] MEDS ORDERED: XIFA200T4 PO (09:01)
== END 2017-08-12 09:30 | disposition home or self-care (01) | DRG 377 ==
LOC: NEPE 10:20 → NEDA 15:09 → HOCB 15:56 → HIMN 06-30 15:40 → N05A 07-08 13:58
PROVIDERS: ADMIT Hospitalist; ATTEND Hospitalist
PROC: 5A09357 Assistance with Respiratory Ventilation, Less than 24 Consecutive Hours, Continuous Positive Airway Pressure (ICD-10-PCS; 2017-06-30)
PROC: 0DJ08ZZ Inspection of Upper Intestinal Tract, Via Natural or Artificial Opening Endoscopic (ICD-10-PCS; principal; 2017-06-30 12:27)
DX: K92.2 Gastrointestinal hemorrhage, unspecified (principal); N17.0 Acute kidney failure with tubular necrosis; J18.9 Pneumonia, unspecified organism; J96.01 Acute respiratory failure with hypoxia; J96.02 Acute respiratory failure with hypercapnia; D68.4 Acquired coagulation factor deficiency; D69.59 Other secondary thrombocytopenia; F10.231 Alcohol dependence with withdrawal delirium; K56.0 Paralytic ileus; F32.9 Major depressive disorder, single episode, unspecified; K22.70 Barrett's esophagus without dysplasia; F17.210 Nicotine dependence, cigarettes, uncomplicated; K29.70 Gastritis, unspecified, without bleeding; K21.0 Gastro-esophageal reflux disease with esophagitis; E87.6 Hypokalemia; K70.31 Alcoholic cirrhosis of liver with ascites; K72.90 Hepatic failure, unspecified without coma; E78.5 Hyperlipidemia, unspecified; M10.9 Gout, unspecified; G89.29 Other chronic pain; R04.0 Epistaxis; Z80.3 Family history of malignant neoplasm of breast; Z87.11 Personal history of peptic ulcer disease; Z80.1 Family history of malignant neoplasm of trachea, bronchus and lung; Z80.8 Family history of malignant neoplasm of other organs or systems; D53.9 Nutritional anemia, unspecified; K29.80 Duodenitis without bleeding; K31.9 Disease of stomach and duodenum, unspecified; W06.XXXA Fall from bed, initial encounter; Y93.89 Activity, other specified; Y92.230 Patient room in hospital as the place of occurrence of the external cause; R51 Headache; R00.1 Bradycardia, unspecified; F41.9 Anxiety disorder, unspecified; I70.90 Unspecified atherosclerosis; M25.571 Pain in right ankle and joints of right foot; I10 Essential (primary) hypertension; J44.9 Chronic obstructive pulmonary disease, unspecified; Z78.1 Physical restraint status; Z51.5 Encounter for palliative care; R60.0 Localized edema; D64.89 Other specified anemias; G62.1 Alcoholic polyneuropathy
CPT/HCPCS: 36600; 70450; 70553; 71010; 71250; 72125; 72148; 72156; 72157; 73600; 74000; 74177; 74183; 74250; 76705; 76775; 76937; 80048; 80053; 80061; 80074; 80076; 80202; 80307; 81001; 82103; 82105; 82140; 82150; 82390; 82550; 82565; 82607; 82728; 82746; 82805; 82948; 83036; 83520; 83540; 83550; 83605; 83690; 83735; 83935; 84100; 84132; 84300; 84439; 84443; 84484; 85025; 85027; 85384; 85610; 85652; 85730; 86038; 86140; 86255; 86430; 86592; 86850; 86900; 86901; 87040; 87070; 87086; 87205; 87449; 87493; 87641; 93005; 93970; 93971; 94002; 94003; 94150; 94640; 94664; 96374; 96375; A9579; C9113; J1630; J1940; J2060; J2212; J2270; J2354; J2405; J2543; J2765; J3370; J3411; J3475; J3480; J7030; J7040; J7042; J7050; J7608; Q9963; Q9967